=== PATIENT | female | born 1955 | race Caucasian/White ===

== ENCOUNTER 2016-12-03 06:38 | Inpatient (IN) | payer OTHER, MEDICARE ==
[2016-12-03] MEDS ORDERED: DIPHTH,PERTUSS(ACELL),TET 0.5 ML DISP.SYRIN IM ONE (07:16)
[2016-12-03] MEDS: SODIUM CHLORIDE 1,000 ML IV SCH ×3 (07:30→17:11)
--- NOTE | 2016-12-03 07:41 | PDOC ---
History of Present Illness <Thuy Sigala - Last Filed: 12/03/16 09:15> - General History Source: Patient Exam Limitations: No Limitations - History of Present Illness Initial Comments: 12/03/16 07:41 60-year-old female with history of insulin-dependent diabetes, COPD, hypertension, history of breast CA status post chemotherapy currently on maintenance oral therapy presents brought in by EMS status post fall with head injury. Patient has only vague recollection, states she was walking in her home this morning when she became progressively lightheaded with some chest discomfort, ultimately states she lost consciousness and struck her head on the floor. She states she woke up immediately after hitting the floor, was complaining of pain to her left head so her brother activated EMS. No other complaints currently other than left frontal headache, no vision change /speech change/focal deficit/nausea/vomiting. She has been having some URI symptoms of nasal congestion and chills, but no measured fevers or cough or shortness of breath or vomiting/diarrhea. She has been compliant with her medications. While she did have some chest discomfort during the lightheadedness, she denies any recent recurring chest pain. <Sawyer Hopkins - Last Filed: 12/03/16 09:48> - General Chief Complaint: Injury Stated Complaint: FALL Time Seen by Provider: 12/03/16 07:01 Past History <Thuy Sigala - Last Filed: 12/03/16 09:15> - Past Medical History Anemia: No Asthma: No Cancer: No Cardiac Disorders: No CVA: No COPD: Yes (SLEEP APNEA-USES NASAL CPAP(SET AT 30)) CHF: No Dementia: No Diabetes: Yes GI Disorders: Yes (pancreatitis, constipation) Disorders: No HTN: Yes Hypercholesterolemia: Yes Liver Disease: No Psychiatric Problems: (SCHIZOEFFECTIVE) Suicide Attempt (Hx): No Seizures: Yes (LAST ONE-2YRS (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)) Thyroid Disease: Yes (hypothyroid) - Surgical History Abdominal Surgery: No Appendectomy: No Cardiac Surgery: No Cholecystectomy: Yes Lung Surgery: No Neurologic Surgery: No Orthopedic Surgery: Yes - Psycho/Social/Smoking Cessation Hx Anxiety: Yes Suicidal Ideation: No Smoking Status: Yes Smoking History: Unknown if ever smoked Have you smoked in the past 12 months: Yes Number of Cigarettes Smoked Daily: 20 Information on smoking cessation initiated: No 'Breaking Loose' booklet given: 07/03/14 Hx Alcohol Use: No Drug/Substance Use Hx: No Substance Use Type: None Hx Substance Use Treatment: No <Sawyer Hopkins - Last Filed: 12/03/16 09:48> - Past Medical History Allergies/Adverse Reactions: Allergies Allergy/AdvReac Type Severity Reaction Status Date / Time acetaminophen [From Tylenol] Allergy "VOMITS" Verified 12/03/16 06:52 almond oil Allergy "ITCHY" Verified 12/03/16 06:52 citalopram hydrobromide Allergy "STROKE Verified 12/03/16 06:52 [From Celexa] LIKE SYMPTOMS" divalproex sodium Allergy "PANCREATIT Verified 12/03/16 06:52 [From Depakote] IS" Iodinated Contrast Media - Allergy Verified 12/03/16 06:52 Oral and [Iodinated Contrast Media - IV Dye] lamotrigine [From Lamictal] Allergy "FACE Verified 12/03/16 06:52 SWELLS" lithium [[place]] Allergy "SEIZURES,SWOLLEN Verified 12/03/16 06:52 ARMS/LEGS" meperidine HCl [From Demerol] Allergy "TURNS RED Verified 12/03/16 06:52 WHEN MIXED WITH NOVACAINE" shellfish derived Allergy "TURNED Verified 12/03/16 06:52 RED /ITCHY" sulfamethoxazole Allergy "COLLAPSED, Verified 12/03/16 06:52 [From Bactrim] HEART ISSUE" topiramate [From Topamax] Allergy TO Verified 12/03/16 06:52 POISONOUS LEVELS" trimethoprim [From Bactrim] Allergy "COLLAPSED,HEART Verified 12/03/16 06:52 ISSUE" Home Medications: Ambulatory Orders Aspirin [ASA -] 81 mg PO DAILY 03/20/14 Buspirone HCl [Buspar] 15 mg PO TID 03/20/14 Insulin (Levemir) [Levemir Flexpen -] 10 units SQ HS 03/20/14 Insulin (Novolog) [Novolog Flexpen -] 0 units SQ ASDIR 03/20/14 Levothyroxine [Synthroid -] 300 mcg PO DAILY 03/20/14 Lorazepam [Ativan] 1 mg PO TID PRN 03/20/14 Polyethylene Glycol 3350 [Miralax 119 gm Btl -] 17 gm PO DAILY 03/20/14 Quetiapine Fumarate [Seroquel -] 800 mg PO HS 03/20/14 Quinapril HCl [Accupril -] 10 mg PO DAILY 03/20/14 Rosuvastatin Calcium [Crestor] 10 mg PO HS 03/20/14 Carboxymethylcellulos/Glycerin [Refresh Optive Eye Drops] 1 drop OP BID FA/Mv,Ca,Iron,Min/Lycopene/Lut [Centrum Tablet] 1 each PO DAILY 07/03/14 Ziprasidone HCl [Geodon] 40 mg PO BID 07/03/14 Anastrozole [Arimidex -] 1 mg PO DAILY 12/03/16 Gabapentin [Neurontin -] 100 mg PO Q8H 12/03/16 Review of Systems - Review of Systems Constitutional: Yes: Chills. No: Fever HEENTM: Yes: Nose Congestion Respiratory: No: Cough, Shortness of Breath Cardiac (ROS): Yes: Chest Pain, Syncope. No: Palpitations ABD/GI: No: Diarrhea, Nausea, Vomiting : No: Dysuria, Frequency Neurological: Yes: Headache All Other Systems: Reviewed and Negative <Sawyer Hopkins - Last Filed: 12/03/16 09:48> *Physical Exam - Vital Signs Last Vital Signs Temp Pulse Resp BP Pulse Ox 97.7 F 86 18 106/57 89 L 12/03/16 06:52 12/03/16 06:52 12/03/16 06:52 12/03/16 06:52 12/03/16 06:52 <Thuy Sigala - Last Filed: 12/03/16 09:15> - Vital Signs Last Vital Signs Temp Pulse Resp BP Pulse Ox 97.7 F 86 18 106/57 89 L 12/03/16 06:52 12/03/16 06:52 12/03/16 06:52 12/03/16 06:52 12/03/16 06:52 - Physical Exam Comments: 12/03/16 07:43 General: Patient is asleep but arousable, in no acute distress. Speech is clear and appropriate. Obese, slightly unkempt. Head: Left frontal superficial ecchymosis, dry blood coming from 1.5 cm linear horizontal superficial laceration at the left frontal region. No active bleeding , no deep tissue injury, no foreign body. HEENT: Pupils are equal round and reactive to light, extraocular movements are intact. The tympanic membranes are clear, no hemotympanum. No facial deformity/ tenderness, no septal hematoma. The oropharynx is clear. Neck: The trachea is midline, there is no stridor. Left paraspinal discomfort to palpation but no midline cervical spine tenderness, full range of motion of neck. Chest: Nontender, no ecchymosis or abrasions. Heart: S1-S2, regular rate and rhythm. No murmurs. Lungs: Clear to auscultation bilaterally. Symmetric chest rise. Abdomen: Soft/nontender/nondistended. Bowel sounds are normal. There is no abdominal or flank ecchymosis. Back/Pelvis: There is no midline spine tenderness or step-off. Pelvis is stable and nontender. Extremities: There is no extremity deformity or joint swelling. No focal bony tenderness throughout. 2+ distal pulses throughout. Neuro: Alert and oriented x3. Cranial nerves II through XII are intact. 5 out of 5 motor strength x4 extremities. Mpsahg-ssgd-mbaeuv is intact. No pronator drift. Gait deferred. Skin: Left frontal/forehead superficial linear laceration, no other injuries. Psych: Affect is appropriate. <Sawyer Hopkins - Last Filed: 12/03/16 09:48> Heart Score/ECG Review #1 ECG reviewed & interpreted by me at: 07:29 General ECG Interpretation: Sinus Rhythm, Normal Rate (84), Normal Intervals ( QTC 496), No acute ischemic changes (T wave flattening I/AVL) <Sawyer Hopkins - Last Filed: 12/03/16 09:48> ED Treatment Course - LABORATORY CBC & Chemistry Diagram: 12/03/16 07:21 12/03/16 07:21 - ADDITIONAL ORDERS Additional order review: Laboratory Results 12/03/16 12/03/16 12/03/16 07:21 07:21 06:49 PTT (Actin FS) 31.6 Sodium 140 Potassium 3.5 Chloride 104 Carbon Dioxide 27 Anion Gap 9 BUN 19 H D Creatinine 1.1 H Creat Clearance w eGFR 50.84 POC Glucometer 178.61224 Random Glucose 171 H D Calcium 8.7 Magnesium 1.7 L D Total Bilirubin 0.3 AST 12 L D ALT 24 Alkaline Phosphatase 116 Creatine Kinase 94 Troponin I < 0.02 Total Protein 5.9 L Albumin 3.4 12/03/16 12/03/16 07:21 06:49 RBC 4.38 MCV 90.3 MCHC 33.4 RDW 14.9 MPV 8.4 Neutrophils % 76.9 Lymphocytes % 14.3 D Monocytes % 5.9 Eosinophils % 2.5 Basophils % 0.4 POC Glucometer [id number] - RADIOLOGY Radiograph Interpretation: 12/03/16 08:49 EXAM: CT/HEAD CT WITHOUT CONTRAST IMPRESSION: CT scan of the brain without intravenous contrast. Since prior CT scan of the head dated 06/13/2010 there remains minimal volume loss and ventricular prominence. No mass lesion, gross acute infarct or intracranial hemorrhage is seen. There is no shift of the midline structures. The calvarium is intact. Calcification of the cavernous carotid arteries are present. Minimal mucosal thickening in the ethmoid air cells. The mastoid air cells are well- aerated. EXAM: CT/CERVICAL SPINE CT W/O CONTR IMPRESSION: Coronal and sagittal reconstruction images were obtained. There is straightening of the cervical spine. No gross fracture, subluxation or prevertebral soft tissue swelling is seen. No jumped facets are identified. C6- C7 moderate degenerative disc disease with posterior spur formation uncovertebral hypertrophy moderately narrowing the left foramen likely impinging left C7 nerve root C5-C6 mild degenerative disc disease Visualized portion of the airway appears unremarkable. No gross enlarged lymph nodes are identified. Lung windows at the thoracic inlet demonstrates atelectatic changes in the dependent portion of the included left upper lobe EXAM: RAD/CHEST - PA IMPRESSION: A single AP projection of the chest is submitted. The heart size is within normal limits. A left-sided Port-A-Cath is present. The lung fishman are free of pulmonary infiltrates or pleural effusions. There is tortuosity and calcification of the thoracic aorta and degenerative changes of the thoracic spine. EXAM: RAD/PELVIS IMPRESSION: L4-L5, L5-S1. Loss of interval disc space height. Facet joint arthropathy at these levels is suggested. Status post total left hip replacement. Normal alignment, no evidence of dislocation. No acute bony abnormalities are seen within limitation of examination. Normal articulation of the right hip. - Medications Given in the ED: ED Medications Discontinued Medications Generic Name Dose Route Start Last Admin Trade Name Evie PRN Reason Stop Dose Admin Diphtheria/Tetanus/Acell Pertussis 0.5 ml 12/03/16 07:16 12/03/16 07:30 Boostrix - IM 12/03/16 07:17 0.5 ml .ONCE ONE Administration <Thuy Sigala - Last Filed: 12/03/16 09:15> - LABORATORY CBC & Chemistry Diagram: 12/03/16 07:21 12/03/16 07:21 - ADDITIONAL ORDERS Additional order review: Laboratory Results 12/03/16 06:49 POC Glucometer [id number] 12/03/16 06:49 POC Glucometer [id number] <Sawyer Hopkins - Last Filed: 12/03/16 09:48> Medical Decision Making - Medical Decision Making 12/03/16 08:52 A page was sent to Dr. Bryan Chamberlain at [phone], Redirected to covering physician in house Dr. Cat Mendoza. 12/03/16 09:[address] Cat Mendoza. Immediate response. Case was discussed. Accepts case. <ZakiyaThuy - Last Filed: 12/03/16 09:15> - Medical Decision Making 12/03/16 07:46 60-year-old female with history of hypertension, insulin dependent diabetes, presents status post episode of lightheadedness and fall with head injury. Patient takes aspirin, is currently neurologically intact, sustained isolated injury to left head and has some neck discomfort. Question etiology of initial lightheadedness and syncope, will need to rule out arrhythmia or ACS or metabolic derangement. Rule out TBI. Labs, urinalysis EKG, chest x-ray, pelvis x-ray CT head and CT C-spine Laceration repair, update tetanus Will need admission 12/03/16 09:46 Labs are within normal limits, creatinine 1.1 from baseline 0.9. Troponin negative. CBC within normal limits. Trauma imaging is unremarkable, chest x-ray nonfocal. Awaiting urinalysis. Accepted for observation telemetry by Dr. Cat Cha. Discussed possible PE, d -dimer added to prior coag specimen. LACERATION REPAIR: The skin was cleansed with saline. Normal saline lavage was performed. The skin edges were carefully opposed. Indermil skin glue was used for closure with a good result. The patient was advised regarding observation for signs and symptoms of infection, care for a laceration after Indermil closure, and indications for immediate follow up with a physician. <Sawyer Hopkins - Last Filed: 12/03/16 09:48> *DC/Admit/Observation/Transfer - Attestations Scribe Attestion: 12/03/16 08:52 Documentation prepared by Thuy Sigala, acting as medical underwriter for Sawyer Hopkins MD. <Thuy Sigala - Last Filed: 12/03/16 09:15> - Discharge Dispostion Admit: Yes <Sawyer Hopkins - Last Filed: 12/03/16 09:48> Diagnosis at time of Disposition: Syncope and collapse Head injury Qualifiers: Encounter type: initial encounter Qualified Code(s): S09.90XA - Unspecified injury of head, initial encounter Scalp laceration Qualifiers: Encounter type: initial encounter Qualified Code(s): S01.01XA - Laceration without foreign body of scalp, initial encounter - Discharge Dispostion Condition at time of disposition: Fair
[2016-12-03 07:44] LABS: BASOPHIL 0.4 % (0-2.0); EOSINOPHIL 2.5 % (0-4.5); MCH 30.1 pg (25.7-33.7); MCHC 33.4 g/dl (32.0-36.0); MEAN CELL VOLUME 90.3 fl (80-96); MEAN PLT VOLUME 8.4 fl (7.5-11.1); NEUTROPHILS 76.9 % (42.8-82.8); PLATELET COUNT 156 K/MM3 (134-434); RDW 14.9 % (11.6-15.6); WHITE BLOOD COUNT 10.6 K/mm3 (4.0-10.0)
[2016-12-03 08:08] LABS: ALBUMIN 3.4 g/dl (3.4-5.0); ANION GAP 9 (8-16); CALCIUM 8.7 mg/dL (8.5-10.1); CO2 27 mmol/L (21-32); MAGNESIUM 1.7 mg/dL (1.8-2.4)
[2016-12-03 08:16] LABS: ALK PHOS 116 U/L (45-117); BILIRUBIN,TOTAL 0.3 mg/dL (0.2-1.0); CREATININE 1.1 mg/dL (0.55-1.02); GLUCOSE,RANDOM 171 mg/dL (74-106); SGOT/AST 12 U/L (15-37); SGPT/ALT 24 U/L (12-78); TOT PROT 5.9 g/dl (6.4-8.2); TROPONIN I < 0.02 ng/ml (0.00-0.05)
[2016-12-03 08:38] LABS: INR 1.03 (0.82-1.09); PROTHROMBIN TIME (PATIENT) 11.3 SEC (9.98-11.88)
[2016-12-03] MEDS ORDERED: LORazepam 1 MG TABLET PO PRN (09:16)
--- NOTE | 2016-12-03 09:20 | HP ---
Admitting History and Physical - Primary Care Physician PCP: Tej Chamberlain - Admission Chief Complaint: fall , chest pain , head injury History of Present Illness: ER HISTORY - History of Present Illness Initial Comments: 12/03/16 07:41 60-year-old female with history of insulin-dependent diabetes, COPD, hypertension, history of breast CA status post chemotherapy currently on maintenance oral therapy presents brought in by EMS status post fall with head injury. Patient has only vague recollection, states she was walking in her home this morning when she became progressively lightheaded with some chest discomfort, ultimately states she lost consciousness and struck her head on the floor. She states she woke up immediately after hitting the floor, was complaining of pain to her left head so her brother activated EMS. No other complaints currently other than left frontal headache, no vision change /speech change/focal deficit/nausea/vomiting. She has been having some URI symptoms of nasal congestion and chills, but no measured fevers or cough or shortness of breath or vomiting/diarrhea. She has been compliant with her medications. While she did have some chest discomfort during the lightheadedness, she denies any recent recurring chest pain. PT SEEN BY ME IN ER She feels dizzy currently- feels herself spinning. Has a pressure pain in front of head .No chest pain currently She has been having viral syndrome a few days prior to the fall- poor appetite, no diarrhea. States she took her Insulin- levemir- PM dose last night and when she woke up this AM, she became very weak and dizzy and fell and hit her head to the edge of a door. Did not lose consciousness Had chest pain slightly , no palpitations, no radiation of pain. Last chemo and RT - 2014 No SOB - Past Medical History Cardiovascular: Yes: HTN, Hyperlipdemia Pulmonary: Yes: COPD, Other (c/c smoker) Heme/Onc: Yes: Cancer (breast cancer) Psych: Yes: Anxiety, Schizophrenia Musculoskeletal: Yes: Osteoarthritis Endocrine: Yes: Diabetes Mellitus - Smoking History Smoking history: Unknown if ever smoked Have you smoked in the past 12 months: Yes Aproximately how many cigarettes per day: 20 - Alcohol/Substance Use Hx Alcohol Use: No - Social History ADL: Independent History of Recent Travel: No Home Medications - Allergies Allergies/Adverse Reactions: Allergies Allergy/AdvReac Type Severity Reaction Status Date / Time acetaminophen [From Tylenol] Allergy "VOMITS" Verified 12/03/16 06:52 almond oil Allergy "ITCHY" Verified 12/03/16 06:52 citalopram hydrobromide Allergy "STROKE Verified 12/03/16 06:52 [From Celexa] LIKE SYMPTOMS" divalproex sodium Allergy "PANCREATIT Verified 12/03/16 06:52 [From Depakote] IS" Iodinated Contrast Media - Allergy Verified 12/03/16 06:52 Oral and [Iodinated Contrast Media - IV Dye] lamotrigine [From Lamictal] Allergy "FACE Verified 12/03/16 06:52 SWELLS" lithium [[place]] Allergy "SEIZURES,SWOLLEN Verified 12/03/16 06:52 ARMS/LEGS" meperidine HCl [From Demerol] Allergy "TURNS RED Verified 12/03/16 06:52 WHEN MIXED WITH NOVACAINE" shellfish derived Allergy "TURNED Verified 12/03/16 06:52 RED /ITCHY" sulfamethoxazole Allergy "COLLAPSED, Verified 12/03/16 06:52 [From Bactrim] HEART ISSUE" topiramate [From Topamax] Allergy TO Verified 12/03/16 06:52 POISONOUS LEVELS" trimethoprim [From Bactrim] Allergy "COLLAPSED,HEART Verified 12/03/16 06:52 ISSUE" - Home Medications Home Medications: Ambulatory Orders Aspirin [ASA -] 81 mg PO DAILY 03/20/14 Buspirone HCl [Buspar] 15 mg PO TID 03/20/14 Insulin (Levemir) [Levemir Flexpen -] 10 units SQ HS 03/20/14 Insulin (Novolog) [Novolog Flexpen -] 0 units SQ ASDIR 03/20/14 Levothyroxine [Synthroid -] 300 mcg PO DAILY 03/20/14 Lorazepam [Ativan] 1 mg PO TID PRN 03/20/14 Polyethylene Glycol 3350 [Miralax 119 gm Btl -] 17 gm PO DAILY 03/20/14 Quetiapine Fumarate [Seroquel -] 800 mg PO HS 03/20/14 Quinapril HCl [Accupril -] 10 mg PO DAILY 03/20/14 Rosuvastatin Calcium [Crestor] 10 mg PO HS 03/20/14 Carboxymethylcellulos/Glycerin [Refresh Optive Eye Drops] 1 drop OP BID FA/Mv,Ca,Iron,Min/Lycopene/Lut [Centrum Tablet] 1 each PO DAILY 07/03/14 Ziprasidone HCl [Geodon] 40 mg PO BID 07/03/14 Anastrozole [Arimidex -] 1 mg PO DAILY 12/03/16 Gabapentin [Neurontin -] 100 mg PO Q8H 12/03/16 Review of Systems - Review of Systems Constitutional: reports: Loss of Appetite, Weakness. denies: Chills, Fever Cardiovascular: reports: Chest Pain. denies: Palpitations, Shortness of Breath Respiratory: denies: Cough, SOB on Exertion Neurological: reports: Dizziness, Headache Physical Examination Vital Signs: Vital Signs Temperature 97.7 F 12/03/16 06:52 Pulse Rate 86 12/03/16 06:52 Respiratory Rate 18 12/03/16 06:52 Blood Pressure 106/57 12/03/16 06:52 O2 Sat by Pulse Oximetry (%) 89 L 12/03/16 06:52 Constitutional: Yes: No Distress, Calm HENT: Yes: Other (left frontal-- abrasion seen, no sutures needed, dried blood) Cardiovascular: Yes: Regular Rate and Rhythm Respiratory: Yes: Diminished Gastrointestinal: Yes: Normal Bowel Sounds, Soft, Abdomen, Obese. No: Distention, Tenderness Extremities: Yes: Other (c/c venous dermatitis) Edema: Yes Edema: LLE: Trace, RLE: Trace Neurological: Yes: Alert, Oriented Psychiatric: Yes: Alert, Oriented Labs: CBC, BMP 12/03/16 07:21 12/03/16 07:21 Imaging - Results Chest X-ray: Image Reviewed (no infiltrate) Cat Scan: Report Reviewed (CT head and neck- negative for bleed, infarcts, fracture) EKG: Image Reviewed (NSR) Problem List - Problems (1) Head injury Code(s): S09.90XA - UNSPECIFIED INJURY OF HEAD, INITIAL ENCOUNTER Qualifiers: Encounter type: initial encounter Qualified Code(s): S09.90XA - Unspecified injury of head, initial encounter (2) Scalp laceration Code(s): S01.01XA - LACERATION WITHOUT FOREIGN BODY OF SCALP, INITIAL ENCOUNTER Qualifiers: Encounter type: initial encounter Qualified Code(s): S01.01XA - Laceration without foreign body of scalp, initial encounter (3) Syncope and collapse Code(s): R55 - SYNCOPE AND COLLAPSE (4) Schizophrenia Code(s): F20.9 - SCHIZOPHRENIA, UNSPECIFIED Qualifiers: Schizophrenia type: unspecified Qualified Code(s): F20.9 - Schizophrenia, unspecified (5) Dehydration syndrome Code(s): E86.0 - DEHYDRATION Assessment/Plan PLAN -- Noted low O2 sat on arrival to ER-- check D Dimer and Doppler of legs- r/o DVT, r/o PE as she has h/o cancer, she is not much mobile -- R/O Acs-- check cardiac enzymes -- Cardiology and Neurology evaluation -- check Echo, carotid doppler -- orthostasis -- viral syndrome precursor to dehydration--continue IV hydration -- replace Magnesium -- hold off ACEI as BP is low and has renal dynsfunction , will resume when better -- Repeat CT head in AM -- Telemetry monitoring -- spoke to ER MD and nurse
[2016-12-03] MEDS ORDERED: MAGNESIUM SULF 50% (8.12 MEQ/2 ML-1 GM VIAL) IVPB ONE (09:49)
[2016-12-03 09:59] LABS: FREE T4 1.06 ng/dl (0.76-1.46); THYROID STIMULATING HORMONE 4.95 uIU/ml (0.358-3.74)
[2016-12-03] MEDS ORDERED: QUINAPRIL HCL 10 MG TABLET (FP) PO SCH (10:00)
[2016-12-03] MEDS: ZIPRASIDONE 40 MG CAPSULE (FP) PO SCH ×2 (10:04→21:08)
[2016-12-03] MEDS: GABAPENTIN 100 MG CAPSULE (FP) PO SCH ×3 (10:04→21:07)
[2016-12-03] MEDS: LEVOTHYROXINE NA 150 MCG TABLET PO SCH (10:04)
[2016-12-03] MEDS: ANASTROZOLE 1 MG TABLET PO SCH (10:15)
[2016-12-03] MEDS ORDERED: MAGNESIUM SULF 50% (8.12 MEQ/2 ML-1 GM VIAL) ONE (11:30)
--- NOTE | 2016-12-03 11:47 | EKG ---
Test Reason : Blood Pressure : / mmHG Vent. Rate : 084 BPM Atrial Rate : 084 BPM P-R Int : 166 ms QRS Dur : 098 ms QT Int : 420 ms P-R-T Axes : 063 007 049 degrees QTc Int : 496 ms NORMAL SINUS RHYTHM CANNOT RULE OUT ANTERIOR INFARCT , AGE UNDETERMINED ABNORMAL ECG WHEN COMPARED WITH ECG OF 01-NOV-2014 14:40, NO SIGNIFICANT CHANGE WAS FOUND Confirmed by PATRICIA BARROW, ANTONIETA ([id number]) on 12/03/2016 11:47:35 AM Referred By: Confirmed By:ANTONIETA GOMEZ MD
[2016-12-03] MEDS ORDERED: INSULIN (NOVOLOG) ASPART 100 UNITS/ML 10ML VIAL ONE (12:27)
[2016-12-03] MEDS: INSULIN (NOVOLOG) ASPART 100 UNITS/ML 10ML VIAL SQ SCH ×2 (12:28→17:12)
[2016-12-03] MEDS: busPIRone HCL 5 MG TABLET PO SCH ×2 (13:47→21:07)
[2016-12-03 13:58] VITALS: BMI 45.6
--- NOTE | 2016-12-03 17:47 | CONSULT ---
Consult Consult Specialty:: Cardiology Referred by:: Cat Cha MD Reason for Consultation:: Syncope - History of Present Illness Chief Complaint: Syncope History of Present Illness: 60-year-old female with history of insulin-dependent diabetes, COPD, hypertension, history of breast CA status post chemotherapy currently on maintenance oral therapy presents brought in by EMS status post fall with head injury, possible syncope following light-headedness, denies other prodromal sxs. - History Source History Provided By: Patient, Medical Record Limitations to Obtaining History: Poor Historian - Past Medical History Cardio/Vascular: Yes: HTN, Hyperlipdemia Pulmonary: Yes: COPD, Other (c/c smoker) Psych: Yes: Anxiety, Schizophrenia Musculoskeletal: Yes: Osteoarthritis Endocrine: Yes: Diabetes Mellitus - Alcohol/Substance Use Hx Alcohol Use: No - Smoking History Smoking history: Current some day smoker Have you smoked in the past 12 months: Yes Aproximately how many cigarettes per day: 20 - Social History ADL: Independent History of Recent Travel: No Home Medications - Allergies Allergies/Adverse Reactions: Allergies Allergy/AdvReac Type Severity Reaction Status Date / Time acetaminophen [From Tylenol] Allergy "VOMITS" Verified 12/03/16 06:52 almond oil Allergy "ITCHY" Verified 12/03/16 06:52 citalopram hydrobromide Allergy "STROKE Verified 12/03/16 06:52 [From Celexa] LIKE SYMPTOMS" divalproex sodium Allergy "PANCREATIT Verified 12/03/16 06:52 [From Depakote] IS" Iodinated Contrast Media - Allergy Verified 12/03/16 06:52 Oral and [Iodinated Contrast Media - IV Dye] lamotrigine [From Lamictal] Allergy "FACE Verified 12/03/16 06:52 SWELLS" lithium [[place]] Allergy "SEIZURES,SWOLLEN Verified 12/03/16 06:52 ARMS/LEGS" meperidine HCl [From Demerol] Allergy "TURNS RED Verified 12/03/16 06:52 WHEN MIXED WITH NOVACAINE" shellfish derived Allergy "TURNED Verified 12/03/16 06:52 RED /ITCHY" sulfamethoxazole Allergy "COLLAPSED, Verified 12/03/16 06:52 [From Bactrim] HEART ISSUE" topiramate [From Topamax] Allergy TO Verified 12/03/16 06:52 POISONOUS LEVELS" trimethoprim [From Bactrim] Allergy "COLLAPSED,HEART Verified 12/03/16 06:52 ISSUE" - Home Medications Home Medications: Ambulatory Orders Aspirin [ASA -] 81 mg PO DAILY 03/20/14 Buspirone HCl [Buspar] 15 mg PO TID 03/20/14 Insulin (Levemir) [Levemir Flexpen -] 10 units SQ HS 03/20/14 Insulin (Novolog) [Novolog Flexpen -] 0 units SQ ASDIR 03/20/14 Levothyroxine [Synthroid -] 300 mcg PO DAILY 03/20/14 Lorazepam [Ativan] 1 mg PO TID PRN 03/20/14 Polyethylene Glycol 3350 [Miralax 119 gm Btl -] 17 gm PO DAILY 03/20/14 Quetiapine Fumarate [Seroquel -] 800 mg PO HS 03/20/14 Quinapril HCl [Accupril -] 10 mg PO DAILY 03/20/14 Rosuvastatin Calcium [Crestor] 10 mg PO HS 03/20/14 Carboxymethylcellulos/Glycerin [Refresh Optive Eye Drops] 1 drop OP BID FA/Mv,Ca,Iron,Min/Lycopene/Lut [Centrum Tablet] 1 each PO DAILY 07/03/14 Ziprasidone HCl [Geodon] 40 mg PO BID 07/03/14 Anastrozole [Arimidex -] 1 mg PO DAILY 12/03/16 Gabapentin [Neurontin -] 100 mg PO Q8H 12/03/16 Review of Systems - Review of Systems Neurological: reports: Dizziness, Syncope Vital Signs: Vital Signs Temperature 98.2 F 12/03/16 14:33 Pulse Rate 87 12/03/16 15:55 Respiratory Rate 20 12/03/16 15:55 Blood Pressure 111/48 12/03/16 15:55 O2 Sat by Pulse Oximetry (%) 97 12/03/16 16:22 Constitutional: Yes: No Distress, Calm Neck: Yes: Supple Respiratory: Yes: Regular, Diminished Gastrointestinal: Yes: Normal Bowel Sounds, Soft, Abdomen, Obese Cardiovascular: Yes: Regular Rate and Rhythm JVD: No Carotid Bruit: No Heart Sounds: Yes: S1, S2 Edema: Yes Edema: LLE: Trace, RLE: Trace - Other Data Labs, Other Data: INR, PTT INR 1.03 (0.82-1.09) 12/03/16 07:21 NSR Echo: Report Reviewed Ejection Fraction %: LVEF > or = 40 % Imaging - Results Chest X-ray: Report Reviewed (NAD) Cat Scan: Report Reviewed (No acute stroke or bleed) Ultrasound: Report Reviewed (No stenosis bilaterally) Problem List - Problems (1) Dehydration syndrome Code(s): E86.0 - DEHYDRATION (2) Head injury Code(s): S09.90XA - UNSPECIFIED INJURY OF HEAD, INITIAL ENCOUNTER Qualifiers: Encounter type: initial encounter Qualified Code(s): S09.90XA - Unspecified injury of head, initial encounter (3) Syncope and collapse Code(s): R55 - SYNCOPE AND COLLAPSE (4) Breast CA Code(s): C50.919 - MALIGNANT NEOPLASM OF UNSP SITE OF UNSPECIFIED FEMALE BREAST (5) Schizophrenia Code(s): F20.9 - SCHIZOPHRENIA, UNSPECIFIED Qualifiers: Schizophrenia type: paranoid schizophrenia Qualified Code(s): F20.0 - Paranoid schizophrenia (6) Hypertension Code(s): I10 - ESSENTIAL (PRIMARY) HYPERTENSION Qualifiers: Hypertension type: essential hypertension Qualified Code(s): I10 - Essential (primary) hypertension Assessment/Plan 12/03/2016 Normal LV size and fxn, mild cLVH, tr MR 1. Post fall, questionable syncope 2. HTN/HCVD 3. Hypothyroidism 4. Hyperlipidemia 5. Schizophrenia 6. Breast ca P:1. Check orthostasis, agree with hydration 2. Monitor telemetry 3. Continue ASA 81 qd, Accupril 10 qd, Crestor 10 qd 4. Thank you for consultative opportunity
--- NOTE | 2016-12-03 18:21 | CONSULT ---
Consult - text type - Consultation Consultation Note: NEUROLOGY CONSULTATION is greatly appreciated: This 60 yoLH woman lives with 2 brothers. PMH of chronic pancreatitis, Diabetes, hypothyroidism, HTN, Chol, Bipolar disease and R breast cancer for which she received Chemo and now, arimidex. Meds include: Insulins, buspar, lorazepam, geodon, seroquel, quinipril, crestor , and gabapentin (being reduced by pt, currently 100 tid). Known to me over many years with migraine Headaches, RLS, and seizure disorder- initially ascribed to lithium toxicity. Depakote D/C'ed due to pancreatitis. No seizures since 2012. Last seen by me 04/18/15. Recently has had increasing gait difficulty and a series of falls, last occurring this morning getting out of bed. Pt describes a sensation of "being pulled foreward when getting up to walk. His AM felt lightheaded and saw "blue plaid" before falling forward with head trauma. "Unsure if LOC." Left forehead laceration at the hairline sutured in the ER, Now , Patient c/o Left sided headache. CT of head (reviewed): Mild atrophy and scattered microvascular changes. CT of C-spine (reviewed): Moderate diffuse spondylytic changes without fracture or dislocation. Carotid duplex: Moderate intimal thickening and calcifications but no significant hemodynamic changes. MARQUIS: Obese. Left frontal suture line. Neg Battles's. Sl reduced neck ROM without tenderness. No bruits. NEURO: MS/speech: Normal CN II-XII normal without nystagmus Motor: No drift or tremor. Min cogwheeling with reinforcement. Normal strength. Areflexic in the legs. Toes downgoing. Coord: No FTN dystaxia Sensory: Decreased vibration in feet. Gait: Wide-based, flexed and shuffling IMP: Non-focal exam sig for probable diabetic peripheral neuropathy and mild extrpyramidal features (possibly due to Geodon). Syncope/presyncope vs fall due to ataxia. SUGGEST: Check orthostatic BP's, B 12, TSH, T4, repeat Mg++ R/O arrhythmia with Halter. R/O occult infection, eriberto UTI. PT eval and Rx for gait training with a walker. Neuro f/u as outpatient. Thank you very much, Rod Priest MD
[2016-12-03] MEDS ORDERED: PT OWN MED DRAWER 7, Y5N ONE (20:47)
[2016-12-03] MEDS: ROSUVASTATIN CA 10 MG TABLET (FP) PO SCH (21:07)
[2016-12-03] MEDS: QUEtiapine FUMARATE 200 MG TABLET PO SCH (21:08)
[2016-12-03] MEDS: INSULIN DETEMIR 100 UNITS/ML MDV SQ SCH (21:11)
[2016-12-03 23:44] LABS: URINE APPEARANCE CLEAR; URINE BILIRUBIN NEGATIVE (NEGATIVE); URINE BLOOD NEGATIVE (NEGATIVE); URINE COLOR LTYELLOW; URINE GLUCOSE (UA) NEGATIVE (NEGATIVE); URINE KETONE NEGATIVE (NEGATIVE); URINE LEUK ESTERASE NEGATIVE (NEGATIVE); URINE NITRITE NEGATIVE (NEGATIVE); URINE PROTEIN NEGATIVE (NEGATIVE); URINE UROBILINOGEN NEGATIVE E.U./dl (0.2-1.0)
[2016-12-04] MEDS: SODIUM CHLORIDE 1,000 ML IV SCH ×4 (05:30→11:54)
[2016-12-04] MEDS: LEVOTHYROXINE NA 150 MCG TABLET PO SCH (06:35)
[2016-12-04] MEDS: GABAPENTIN 100 MG CAPSULE (FP) PO SCH ×3 (06:35→22:57)
[2016-12-04] MEDS: busPIRone HCL 5 MG TABLET PO SCH ×3 (06:37→22:56)
[2016-12-04] MEDS: INSULIN (NOVOLOG) ASPART 100 UNITS/ML 10ML VIAL SQ SCH ×3 (06:40→16:07)
[2016-12-04 09:01] LABS: CALCIUM 8.8 mg/dL (8.5-10.1); CREATININE 0.9 mg/dL (0.55-1.02)
[2016-12-04] MEDS ORDERED: PT OWN MED DRAWER 7, Y5N ONE ×2 (09:45→22:08)
--- NOTE | 2016-12-04 10:16 | PN ---
Progress Note, Physician Chief Complaint: Events noted Complains of headache History of Present Illness: Patient was seen and examined. Awake and alert. Chart was reviewed Denies chest pain, SOB or palpitation Events noted regarding syncope Repeat head CT was unremarkable - Current Medication List Current Medications: Active Medications Anastrozole (Arimidex -) 1 mg PO DAILY [facility] Last Admin: 12/03/16 10:15 Dose: Not Given Buspirone HCl (Buspar -) 15 mg PO TID [facility] Last Admin: 12/04/16 06:37 Dose: 15 mg Gabapentin (Neurontin -) 100 mg PO TID [facility] Last Admin: 12/04/16 06:35 Dose: 100 mg Sodium Chloride (Normal Saline -) 1,000 mls @ 125 mls/hr IV ASDIR [facility] Last Admin: 12/04/16 07:46 Dose: Not Given Sodium Chloride (Normal Saline -) 1,000 mls @ 100 mls/hr IV ASDIR [facility] Last Admin: 12/04/16 05:30 Dose: 100 mls/hr Insulin Aspart (Novolog Vial) 0 units SQ TIDAC [facility] PRN Reason: Protocol Last Admin: 12/04/16 06:40 Dose: Not Given Insulin Detemir (Levemir Vial) 10 units SQ [facility] Last Admin: 12/03/16 21:11 Dose: 10 units Levothyroxine Sodium (Synthroid -) 300 mcg PO DAILY@0700 [facility] Last Admin: 12/04/16 06:35 Dose: 300 mcg Lorazepam (Ativan -) 1 mg PO TID PRN PRN Reason: ANXIETY Quetiapine Fumarate (Seroquel -) 800 mg PO [facility] Last Admin: 12/03/16 21:08 Dose: 800 mg Rosuvastatin Calcium (Crestor -) 10 mg PO [facility] Last Admin: 12/03/16 21:07 Dose: 10 mg Ziprasidone (Geodon -) 40 mg PO BID [facility] Last Admin: 12/03/16 21:08 Dose: 40 mg - Objective Vital Signs: Vital Signs Temperature 98 F 12/04/16 07:57 Pulse Rate 88 12/04/16 07:57 Respiratory Rate 22 12/04/16 07:57 Blood Pressure 152/99 12/04/16 07:57 O2 Sat by Pulse Oximetry (%) 95 12/03/16 21:00 Neck: Yes: Supple Cardiovascular: Yes: Regular Rate and Rhythm, S1, S2 Respiratory: Yes: CTA Bilaterally Gastrointestinal: Yes: Normal Bowel Sounds, Soft, Abdomen, Obese. No: Tenderness Edema: Yes Edema: LLE: Trace, RLE: Trace Additional Findings/Remarks: Review of Systems Cardiovascular: As noted above Respiratory: denies: denies: Cough or Sputum Production Gastrointestinal: denies: Nausea, Vomiting, Constipation or Abdominal Discomfort but reports intermittent Diarrhea and persistent Dysphagia Musculoskeletal: No Symptoms Reported Neuro: Possible syncope, no seizure Problem List - Problems (1) Head injury Code(s): S09.90XA - UNSPECIFIED INJURY OF HEAD, INITIAL ENCOUNTER Qualifiers: Encounter type: initial encounter Qualified Code(s): S09.90XA - Unspecified injury of head, initial encounter (2) Hypertension Code(s): I10 - ESSENTIAL (PRIMARY) HYPERTENSION Qualifiers: Hypertension type: essential hypertension Qualified Code(s): I10 - Essential (primary) hypertension (3) Scalp laceration Code(s): S01.01XA - LACERATION WITHOUT FOREIGN BODY OF SCALP, INITIAL ENCOUNTER Qualifiers: Encounter type: initial encounter Qualified Code(s): S01.01XA - Laceration without foreign body of scalp, initial encounter (4) Syncope and collapse Code(s): R55 - SYNCOPE AND COLLAPSE (5) Breast CA Code(s): C50.919 - MALIGNANT NEOPLASM OF UNSP SITE OF UNSPECIFIED FEMALE BREAST (6) Schizophrenia Code(s): F20.9 - SCHIZOPHRENIA, UNSPECIFIED Qualifiers: Schizophrenia type: unspecified Qualified Code(s): F20.9 - Schizophrenia, unspecified Assessment/Plan 1. Possible syncope status post fall 2. HTN/HCVD 3. Hypothyroidism 4. Hyperlipidemia 5. Schizophrenia 6. History of breast CA PLAN: 1. Check orthostasis and agree with hydration 2. Monitor on telemetry. Consider attaching Holter monitor 3. Continue ASA 81 mg QD, Accupril 10 mg QD and Crestor 10 mg QD. Consider increasing blood pressure medication if BP remains elevated 4. Neuro input noted. 5. Echocardiography and carotid Doppler reports noted Further plans are to follow Servando Pritchard MD
[2016-12-04] MEDS: ZIPRASIDONE 40 MG CAPSULE (FP) PO SCH ×2 (10:29→22:56)
[2016-12-04] MEDS: ANASTROZOLE 1 MG TABLET PO SCH (10:32)
--- NOTE | 2016-12-04 11:21 | PN ---
Progress Note, Physician Chief Complaint: patient sleepy No distress No headaches or chest pains spoke with the nurse, states that she is too sleepy she awakens when called and speaks appropriately - Current Medication List Current Medications: Active Medications Anastrozole (Arimidex -) 1 mg PO DAILY [facility] Last Admin: 12/04/16 10:32 Dose: 1 mg Buspirone HCl (Buspar -) 15 mg PO TID [facility] Last Admin: 12/04/16 06:37 Dose: 15 mg Gabapentin (Neurontin -) 100 mg PO TID [facility] Last Admin: 12/04/16 06:35 Dose: 100 mg Sodium Chloride (Normal Saline -) 1,000 mls @ 100 mls/hr IV ASDIR [facility] Last Admin: 12/04/16 10:31 Dose: 100 mls/hr Sodium Chloride (Normal Saline -) 1,000 mls @ 80 mls/hr IV ASDIR [facility] Insulin Aspart (Novolog Vial) 0 units SQ TIDAC [facility] PRN Reason: Protocol Last Admin: 12/04/16 06:40 Dose: Not Given Insulin Detemir (Levemir Vial) 10 units SQ [facility] Last Admin: 12/03/16 21:11 Dose: 10 units Levothyroxine Sodium (Synthroid -) 300 mcg PO DAILY@0700 [facility] Last Admin: 12/04/16 06:35 Dose: 300 mcg Lorazepam (Ativan -) 1 mg PO TID PRN PRN Reason: ANXIETY Quetiapine Fumarate (Seroquel -) 800 mg PO [facility] Last Admin: 12/03/16 21:08 Dose: 800 mg Quinapril HCl (Accupril -) 10 mg PO DAILY [facility] Rosuvastatin Calcium (Crestor -) 10 mg PO [facility] Last Admin: 12/03/16 21:07 Dose: 10 mg Ziprasidone (Geodon -) 40 mg PO BID [facility] Last Admin: 12/04/16 10:29 Dose: Not Given - Objective Vital Signs: Vital Signs Temperature 98 F 12/04/16 07:57 Pulse Rate 88 12/04/16 07:57 Respiratory Rate 20 12/04/16 08:00 Blood Pressure 152/99 12/04/16 07:57 O2 Sat by Pulse Oximetry (%) 92 L 12/04/16 08:00 Constitutional: Yes: No Distress Cardiovascular: Yes: Regular Rate and Rhythm Respiratory: Yes: Diminished Gastrointestinal: Yes: Normal Bowel Sounds, Soft, Abdomen, Obese. No: Distention, Tenderness Edema: No Psychiatric: Yes: Alert Labs: CBC, BMP 12/04/16 05:35 INR, PTT INR 1.03 (0.82-1.09) 12/03/16 07:21 Problem List - Problems (1) Head injury Code(s): S09.90XA - UNSPECIFIED INJURY OF HEAD, INITIAL ENCOUNTER Qualifiers: Encounter type: initial encounter Qualified Code(s): S09.90XA - Unspecified injury of head, initial encounter (2) Scalp laceration Code(s): S01.01XA - LACERATION WITHOUT FOREIGN BODY OF SCALP, INITIAL ENCOUNTER Qualifiers: Encounter type: initial encounter Qualified Code(s): S01.01XA - Laceration without foreign body of scalp, initial encounter (3) Syncope and collapse Code(s): R55 - SYNCOPE AND COLLAPSE (4) Schizophrenia Code(s): F20.9 - SCHIZOPHRENIA, UNSPECIFIED Qualifiers: Schizophrenia type: unspecified Qualified Code(s): F20.9 - Schizophrenia, unspecified (5) Dehydration syndrome Code(s): E86.0 - DEHYDRATION Assessment/Plan PLAN echo and carotid Doppler normal Doppler of lower extremities negative for DVT Patient uses CPAP machine at nighttime--arrange for tonight Cardiology and neurology evaluation noted urinalysis is negative, urine culture pending decrease IV fluids Patient had seen her own psychiatrist 2 weeks ago and no changes were made to her medications. I feel that her medications are making her too sleepy thus making her a great risk for fall Psychiatry evaluation Physical therapy evaluation DVT prophylaxis repeat CT head negative resume Accupril
[2016-12-04] MEDS: QUINAPRIL HCL 10 MG TABLET (FP) PO SCH (14:28)
[2016-12-04] MEDS: ROSUVASTATIN CA 10 MG TABLET (FP) PO SCH (22:56)
[2016-12-04] MEDS: QUEtiapine FUMARATE 200 MG TABLET PO SCH (22:56)
[2016-12-04] MEDS: INSULIN DETEMIR 100 UNITS/ML MDV SQ SCH (23:00)
[2016-12-05] MEDS: INSULIN (NOVOLOG) ASPART 100 UNITS/ML 10ML VIAL SQ SCH ×3 (06:45→16:24)
[2016-12-05] MEDS: LEVOTHYROXINE NA 150 MCG TABLET PO SCH (06:46)
[2016-12-05] MEDS: GABAPENTIN 100 MG CAPSULE (FP) PO SCH ×3 (06:46→21:37)
[2016-12-05] MEDS: busPIRone HCL 5 MG TABLET PO SCH ×3 (06:47→21:37)
[2016-12-05] MEDS ORDERED: PT OWN MED DRAWER 7, Y5N ONE ×3 (09:17→21:26)
[2016-12-05] MEDS ORDERED: ENOXAPARIN NA (PORCINE) 40 MG/0.4 ML DISP.SYRIN SQ SCH (10:00)
--- NOTE | 2016-12-05 10:32 | PN ---
Progress Note (short form) - Note Progress Note: SUBJECTIVE: Patient seen and examined. Chart reviewed. Sitting in the chair. Chief complaint: Pain in the neck. Thinks it is sore due to fall. Denies headache. Gets short o breath when not using oxygen. Pulse ox drops to 78%. Denies chest pain. OBJECTIVE: Vital Signs - 8 hr 12/05/16 06:00 Pulse Rate 71 Respiratory 20 Rate Blood Pressure 141/70 Intake & Output 12/04/16 12/05/16 12/05/16 23:59 07:59 15:59 Intake Total 480 Balance 480 Intake: Oral 480 Other: Voiding Method Toilet Toilet # Unmeasured Voids Void 5 Bowel Movement Yes # Bowel Movements 1 Active Medications Anastrozole (Arimidex -) 1 mg PO DAILY [facility] Last Admin: 12/04/16 10:32 Dose: 1 mg Buspirone HCl (Buspar -) 15 mg PO TID [facility] Last Admin: 12/05/16 06:47 Dose: 15 mg Enoxaparin Sodium (Lovenox -) 40 mg SQ DAILY [facility] Gabapentin (Neurontin -) 100 mg PO TID [facility] Last Admin: 12/05/16 06:46 Dose: 100 mg Sodium Chloride (Normal Saline -) 1,000 mls @ 100 mls/hr IV ASDIR [facility] Last Admin: 12/04/16 10:31 Dose: 100 mls/hr Sodium Chloride (Normal Saline -) 1,000 mls @ 80 mls/hr IV ASDIR [facility] Last Admin: 12/04/16 11:54 Dose: 80 mls/hr Insulin Aspart ([facility]) [facility] Reason: Protocol Last Admin: 12/05/16 06:45 Dose: Not Given Insulin Detemir (Levemir Vial) 10 units SQ [facility] Last Admin: 12/04/16 23:00 Dose: 10 units Levothyroxine Sodium (Synthroid -) 300 mcg PO DAILY@0700 [facility] Last Admin: 12/05/16 06:46 Dose: 300 mcg Lorazepam (Ativan -) 1 mg PO TID PRN PRN Reason: ANXIETY Quetiapine Fumarate (Seroquel -) 800 mg PO [facility] Last Admin: 12/04/16 22:56 Dose: 800 mg Quinapril HCl (Accupril -) 10 mg PO DAILY [facility] Last Admin: 12/04/16 14:28 Dose: 10 mg Rosuvastatin Calcium (Crestor -) 10 mg PO HS [facility] Last Admin: 12/04/16 22:56 Dose: 10 mg Ziprasidone (Geodon -) 40 mg PO BID [facility] Last Admin: 12/04/16 22:56 Dose: 40 mg CBC, BMP 12/03/16 07:21 12/04/16 05:35 Laboratory Results - last 24 hr 12/04/16 12/04/16 12/04/16 11:32 15:50 22:52 POC Glucometer 166 117 129 12/05/16 05:47 POC Glucometer 142 PHYSICAL EXAMINATION: Constitutional: Yes: No Distress. Neck: Supple Cardiovascular: Yes: Regular Rate and Rhythm Respiratory: Yes: Diminished Gastrointestinal: Yes: Normal Bowel Sounds, Soft, Abdomen, Obese. No: Distention, Tenderness Edema: No Psychiatric: Yes: Alert ASSESSMENT & PLAN: Overall stable but hypoxic on room air. - Last Chest X-Ray reviewed - Likely due to morbid obesity and medications. - Psych consult pending to adjust psych medications. - Pulmonary consult requested. - Monitor 24 Holter. - Report is pending. - Monitor blood pressure and blood sugar. - Will check pulse oxymetry on room air and after exercise. - Physical therapy. - Motrin for pain. - Will follow. Problem List - Problems (1) Head injury Code(s): S09.90XA - UNSPECIFIED INJURY OF HEAD, INITIAL ENCOUNTER Qualifiers: Encounter type: initial encounter Qualified Code(s): S09.90XA - Unspecified injury of head, initial encounter (2) Scalp laceration Code(s): S01.01XA - LACERATION WITHOUT FOREIGN BODY OF SCALP, INITIAL ENCOUNTER Qualifiers: Encounter type: initial encounter Qualified Code(s): S01.01XA - Laceration without foreign body of scalp, initial encounter (3) Syncope and collapse Code(s): R55 - SYNCOPE AND COLLAPSE (4) Schizophrenia Code(s): F20.9 - SCHIZOPHRENIA, UNSPECIFIED Qualifiers: Schizophrenia type: unspecified Qualified Code(s): F20.9 - Schizophrenia, unspecified (5) Dehydration syndrome Code(s): E86.0 - DEHYDRATION Documentation prepared by Thuy Sigala, acting as a medical or surgical instrument maker for Tej Chamberlain MD.
--- NOTE | 2016-12-05 10:43 | PN ---
Progress Note, Physician History of Present Illness: No further near or true syncope. No events on telemetry. - Current Medication List Current Medications: Active Medications Anastrozole (Arimidex -) 1 mg PO DAILY [facility] Last Admin: 12/04/16 10:32 Dose: 1 mg Buspirone HCl (Buspar -) 15 mg PO TID [facility] Last Admin: 12/05/16 06:47 Dose: 15 mg Enoxaparin Sodium (Lovenox -) 40 mg SQ DAILY [facility] Gabapentin (Neurontin -) 100 mg PO TID [facility] Last Admin: 12/05/16 06:46 Dose: 100 mg Sodium Chloride (Normal Saline -) 1,000 mls @ 100 mls/hr IV ASDIR [facility] Last Admin: 12/04/16 10:31 Dose: 100 mls/hr Sodium Chloride (Normal Saline -) 1,000 mls @ 80 mls/hr IV ASDIR [facility] Last Admin: 12/04/16 11:54 Dose: 80 mls/hr Insulin Aspart (Novolog Vial) 0 units SQ TIDAC [facility] PRN Reason: Protocol Last Admin: 12/05/16 06:45 Dose: Not Given Insulin Detemir (Levemir Vial) 10 units SQ [facility] Last Admin: 12/04/16 23:00 Dose: 10 units Levothyroxine Sodium (Synthroid -) 300 mcg PO DAILY@0700 [facility] Last Admin: 12/05/16 06:46 Dose: 300 mcg Lorazepam (Ativan -) 1 mg PO TID PRN PRN Reason: ANXIETY Quetiapine Fumarate (Seroquel -) 800 mg PO [facility] Last Admin: 12/04/16 22:56 Dose: 800 mg Quinapril HCl (Accupril -) 10 mg PO DAILY [facility] Last Admin: 12/04/16 14:28 Dose: 10 mg Rosuvastatin Calcium (Crestor -) 10 mg PO [facility] Last Admin: 12/04/16 22:56 Dose: 10 mg Ziprasidone (Geodon -) 40 mg PO BID [facility] Last Admin: 12/04/16 22:56 Dose: 40 mg - Objective Vital Signs: Vital Signs Temperature 69.9 F L 12/05/16 02:00 Pulse Rate 71 12/05/16 06:00 Respiratory Rate 20 12/05/16 06:00 Blood Pressure 141/70 12/05/16 06:00 O2 Sat by Pulse Oximetry (%) 96 12/04/16 21:39 Constitutional: Yes: No Distress, Calm Neck: Yes: Supple Cardiovascular: Yes: Regular Rate and Rhythm Respiratory: Yes: Regular, Diminished, On Nasal O2 Gastrointestinal: Yes: Normal Bowel Sounds, Soft, Abdomen, Obese Edema: No Labs: CBC, BMP 12/04/16 05:35 INR, PTT INR 1.03 (0.82-1.09) 12/03/16 07:21 Problem List - Problems (1) Dehydration syndrome Code(s): E86.0 - DEHYDRATION (2) Head injury Code(s): S09.90XA - UNSPECIFIED INJURY OF HEAD, INITIAL ENCOUNTER Qualifiers: Encounter type: initial encounter Qualified Code(s): S09.90XA - Unspecified injury of head, initial encounter (3) Syncope and collapse Code(s): R55 - SYNCOPE AND COLLAPSE (4) Breast CA Code(s): C50.919 - MALIGNANT NEOPLASM OF UNSP SITE OF UNSPECIFIED FEMALE BREAST (5) Schizophrenia Code(s): F20.9 - SCHIZOPHRENIA, UNSPECIFIED Qualifiers: Schizophrenia type: unspecified Qualified Code(s): F20.9 - Schizophrenia, unspecified (6) Hypertension Code(s): I10 - ESSENTIAL (PRIMARY) HYPERTENSION Qualifiers: Hypertension type: essential hypertension Qualified Code(s): I10 - Essential (primary) hypertension (7) Obstructive sleep apnea on CPAP Code(s): G47.33 - OBSTRUCTIVE SLEEP APNEA (ADULT) (PEDIATRIC) (8) Hypothyroidism Code(s): E03.9 - HYPOTHYROIDISM, UNSPECIFIED Qualifiers: Hypothyroidism type: unspecified Qualified Code(s): E03.9 - Hypothyroidism, unspecified (9) Hyperlipidemia Code(s): E78.5 - HYPERLIPIDEMIA, UNSPECIFIED Qualifiers: Hyperlipidemia type: pure hypercholesterolemia Qualified Code(s): E78.0 - Pure hypercholesterolemia Assessment/Plan 1. Possible syncope status post fall 2. HTN/HCVD 3. Hypothyroidism 4. Hyperlipidemia 5. Schizophrenia 6. History of breast CA 7. OSAS on cpap PLAN: 1. Continue ASA 81 mg QD, Accupril 10 mg QD and Crestor 10 mg QD. 2. Neuro input noted. 3. Echocardiography and carotid Doppler reports noted 4. D/c planning
[2016-12-05] MEDS ORDERED: IBUPROFEN 400 MG TABLET (FP) PO PRN (11:01)
[2016-12-05] MEDS: SODIUM CHLORIDE 1,000 ML IV SCH ×2 (11:41→15:16)
[2016-12-05] MEDS: ZIPRASIDONE 40 MG CAPSULE (FP) PO SCH ×2 (11:42→21:39)
[2016-12-05] MEDS: ANASTROZOLE 1 MG TABLET PO SCH (11:42)
[2016-12-05] MEDS: QUINAPRIL HCL 10 MG TABLET (FP) PO SCH (11:43)
--- NOTE | 2016-12-05 12:22 | PN ---
Progress Note (short form) - Note Progress Note: PULMONARY CONSULTATION DICTATED 12/05/16 IMP COPD SYNCOPE HTN OSAS DM H/O BREAST CA HYPOTHYROIDISM SMOKER PLAN INHALED BRONCHODILATORS PRN PFTS OUTPATIENT SMOKING CESSATION COUNSELED CPAP WT REDUCTION DR AVERY Problem List - Problems (1) Dehydration syndrome Code(s): E86.0 - DEHYDRATION (2) Head injury Code(s): S09.90XA - UNSPECIFIED INJURY OF HEAD, INITIAL ENCOUNTER Qualifiers: Encounter type: initial encounter Qualified Code(s): S09.90XA - Unspecified injury of head, initial encounter (3) Hyperlipidemia Code(s): E78.5 - HYPERLIPIDEMIA, UNSPECIFIED Qualifiers: Hyperlipidemia type: pure hypercholesterolemia Qualified Code(s): E78.0 - Pure hypercholesterolemia (4) Hypertension Code(s): I10 - ESSENTIAL (PRIMARY) HYPERTENSION Qualifiers: Hypertension type: essential hypertension Qualified Code(s): I10 - Essential (primary) hypertension (5) Hypothyroidism Code(s): E03.9 - HYPOTHYROIDISM, UNSPECIFIED Qualifiers: Hypothyroidism type: unspecified Qualified Code(s): E03.9 - Hypothyroidism, unspecified (6) Obstructive sleep apnea on CPAP Code(s): G47.33 - OBSTRUCTIVE SLEEP APNEA (ADULT) (PEDIATRIC) (7) Syncope and collapse Code(s): R55 - SYNCOPE AND COLLAPSE (8) Breast CA Code(s): C50.919 - MALIGNANT NEOPLASM OF UNSP SITE OF UNSPECIFIED FEMALE BREAST (9) Schizophrenia Code(s): F20.9 - SCHIZOPHRENIA, UNSPECIFIED Qualifiers: Schizophrenia type: unspecified Qualified Code(s): F20.9 - Schizophrenia, unspecified (10) Shortness of breath Code(s): R06.02 - SHORTNESS OF BREATH (11) COPD (chronic obstructive pulmonary disease) Code(s): J44.9 - CHRONIC OBSTRUCTIVE PULMONARY DISEASE, UNSPECIFIED (12) Tobacco abuse Code(s): Z72.0 - TOBACCO USE (13) Tobacco abuse counseling Code(s): Z71.6 - TOBACCO ABUSE COUNSELING
--- NOTE | 2016-12-05 13:19 | CONS ---
DATE OF CONSULTATION: 12/05/2016 REFERRING PHYSICIAN: Tej Chamberlain MD HISTORY: The patient is a 60-year-old white female with past medical history of morbid obesity, insulin-dependent diabetes mellitus, COPD, hypertension, history of breast cancer status post chemotherapy currently on maintenance therapy, history of hyperlipidemia, hypertension, longstanding history of tobacco use still smoking approximately 1/2 pack per day admitted to [facility] status post fall and possible syncope. The patient states she woke up and starting ambulated and felt lightheaded and fell. She states that she woke up and she noticed she was bleeding from her forehead at which time she presented to the emergency room. Denied any complaints of chest pain, nausea, vomiting, or diaphoresis. She presented to the emergency room. On admission, she was evaluated by Dr. George for Cardiology consultation as well as Dr. Priest for Neurology consultation. Of note, the patient's head CT was within normal limits. The patient states this was his 2nd episode of syncope within normal limits year. The patient has a history of tobacco use. Used to smoke a pack a day, currently 1/2 pack a day. Does complain of shortness of breath with minimal exertion. She states she is unable to take inhalers secondary to those palpitations. She noticed she also has a history of sleep apnea for which she is currently on CPAP with which she states she is compliant. She denies any history of occupational exposure to chemicals or fumes. There is no history of DVT or PE in the past. PAST MEDICAL HISTORY: Again, includes obstructive sleep apnea on CPAP, hypertension, COPD, morbid obesity, history of syncope, history of breast cancer status post chemotherapy, insulin-dependent diabetes mellitus, osteoarthritis, hypothyroidism. REVIEW OF SYSTEMS: No orthopnea. Positive dyspnea on exertion. No headache, no visual disturbances, no chest pain, no palpitations, no cough, no hemoptysis, no abdominal pain. CURRENT MEDICATIONS: Include Accupril, Lovenox, Neurontin, Arimidex, Seroquel, Geodon, BuSpar, Ativan, NovoLog, Levemir, Motrin, and Synthroid. PHYSICAL EXAMINATION: General: The patient is a well-developed, well-nourished female awake and alert in no acute distress. Vital Signs: She is currently afebrile. Blood pressure 140/70, respiratory rate 20, O2 saturation 96%. HEENT: Normocephalic and atraumatic. Neck: Supple. Heart: Regular. S1, S2. Chest: Clear. Abdomen: Soft. Bowel sounds are present. Extremities: No cyanosis or edema. LABORATORIES: BUN 13, creatinine 0.9. Sodium 146, WBCs 10.6, hemoglobin 13.2, hematocrit 39.5 with a platelet count of 156,000. D-dimer is 274. Head CT: No acute intracranial pathology. Chest x-ray: No acute infiltrate sign or effusions. IMPRESSION: 1. Dysplasia most likely secondary to chronic obstructive pulmonary disease with longstanding history of tobacco use. 2. Status post syncope. 3. Obstructive sleep apnea on continuous positive airway pressure. 4. History of breast cancer status post chemotherapy. 5. Hyperlipidemia. 6. Hypothyroidism. PLAN: Lung cancer screening with low dose CT scan of the chest. Pulmonary function tests as an outpatient. Continue CPAP. LORNA AVERY M.D. [id number]
--- NOTE | 2016-12-05 14:48 | HOL ---
Hook-up date: 2016-12-04 11:02:00 Duration: 23:46:00 Test Indications: R/O ARRHYTHMIA, SYNCOPE Medications: [id number] QRS complexes 40 Ventricular ectopics which represent <1 % of total QRS comp. 139 Supraventricular ectopics which represent <1 % of total QRS comp. * Paced QRS complexs which represent % of total QRS comp. 2 % of Time Classified as Noise VENTRICULAR ECTOPY 34 Isolated 0 Bigeminal Cycles 1 Couplets 1 Runs 4 Beats in Runs 4 Beats LONGEST at 85 BPM at 18:13:46 2016-12-04 4 Beats FASTEST at 85 BPM at 18:13:46 2016-12-04 SUPRAVENTRICULAR ECTOPY 127 Isolated 2 Couplets 2 Runs 8 Beats in Runs 5 Beats LONGEST at 150 BPM at 14:59:13 2016-12-04 5 Beats FASTEST at 150 BPM at 14:59:13 2016-12-04 HEART RATES 51 MIN at 18:46:35 2016-12-04 75 AVG 95 MAX at 12:08:39 2016-12-04 LONGEST RR 1.360 secs at 18:42:05 2016-12-04 Underlying rhythm is NSR. Rare atrial premature contractions, some aberrantly conducted. Short run of paroxysmal atrial tachycardia at a rate of 150bpm, lasting 5 beats. Rare single VPCs. Confirmed by PAUL RIOS MD ([id number]) on 12/05/2016 2:48:05 PM Referred By: Overread By: PAUL RIOS MD
--- NOTE | 2016-12-05 15:03 | CONSULT ---
Consult - text type - Consultation Consultation Note: Patient seen for Psych Consult. Unable to dictate on Psych template. 60 yr old with a history of Scizophrenia, being treated by a pvt psych. She apparantly fell at home. There has been no recent changes in her psych med combination. She has been clinically stable on [facility]. MS: alert, oriented, not diaplaying any acute psychosis or self damaging behaviour. Cognitin is grossly intacy. Judgement is intact. Plan: Continue with [facility].
[2016-12-05] MEDS: ROSUVASTATIN CA 10 MG TABLET (FP) PO SCH (21:37)
[2016-12-05] MEDS: INSULIN DETEMIR 100 UNITS/ML MDV SQ SCH (21:38)
[2016-12-05] MEDS: QUEtiapine FUMARATE 200 MG TABLET PO SCH (21:38)
[2016-12-06] MEDS: INSULIN (NOVOLOG) ASPART 100 UNITS/ML 10ML VIAL SQ SCH (06:16)
[2016-12-06] MEDS ORDERED: PT OWN MED DRAWER 7, Y5N ONE ×2 (06:19→09:14)
[2016-12-06] MEDS: LEVOTHYROXINE NA 150 MCG TABLET PO SCH (06:20)
[2016-12-06] MEDS: GABAPENTIN 100 MG CAPSULE (FP) PO SCH (06:20)
[2016-12-06] MEDS: busPIRone HCL 5 MG TABLET PO SCH (06:21)
[2016-12-06 06:33] VITALS: TEMP 98
[2016-12-06 08:53] VITALS: BP 129/87; PULSE 71
--- NOTE | 2016-12-06 10:35 | DS ---
Physical Examination Vital Signs: Vital Signs Temperature 98 F 12/06/16 06:00 Pulse Rate 71 12/06/16 08:50 Respiratory Rate 18 12/06/16 08:53 Blood Pressure 129/87 12/06/16 08:50 O2 Sat by Pulse Oximetry (%) 96 12/06/16 02:54 Findings/Remarks: doing well. no complains. wants to go home PSYCH F/U NOTED Constitutional: Yes: No Distress, Calm Eyes: Yes: Conjunctiva Clear Neck: Yes: Supple Cardiovascular: Yes: Regular Rate and Rhythm Respiratory: Yes: Diminished Gastrointestinal: Yes: Soft Edema: No Neurological: Yes: Alert Psychiatric: Yes: Alert Labs: CBC, BMP 12/04/16 05:35 Discharge Summary Reason For Visit: SYNCOPE,COLLAPSE,HEAD INJURY Current Active Problems COPD (chronic obstructive pulmonary disease) (Acute) Dehydration syndrome (Acute) Head injury (Acute) Hyperlipidemia (Acute) Hypertension (Acute) Hypothyroidism (Acute) Obstructive sleep apnea on CPAP (Acute) Scalp laceration (Acute) Syncope and collapse (Acute) Tobacco abuse (Acute) Tobacco abuse counseling (Acute) Hospital Course: s/p syncope / fall monitored on tele doing well d/c today Pt qualified for home oxygen- delivered-- 2l Smoking cessation counselled strongly charla pt Meds reconcilled/ discussed. Plan discussed with nursing staff. Pt to follow in office next week. Spend 35 min in examining / documenting / coordating care. Discussed with pulmonary - Dr. Combs also -- Agree with plan. Condition: Stable - Instructions Diet, Activity, Other Instructions: Continuous supplemental oxygen Smoking cessation F/U w/your primary physician as scheduled Disposition: HOME - Home Medications Comprehensive Discharge Medication List: Ambulatory Orders Aspirin [ASA -] 81 mg PO DAILY 03/20/14 Buspirone HCl [Buspar] 15 mg PO TID 03/20/14 Insulin (Levemir) [Levemir Flexpen -] 10 units SQ HS 03/20/14 Insulin (Novolog) [Novolog Flexpen -] 0 units SQ ASDIR 03/20/14 Levothyroxine [Synthroid -] 300 mcg PO DAILY 03/20/14 Lorazepam [Ativan] 1 mg PO TID PRN 03/20/14 Polyethylene Glycol 3350 [Miralax 119 gm Btl -] 17 gm PO DAILY 03/20/14 Quetiapine Fumarate [Seroquel -] 800 mg PO HS 03/20/14 Quinapril HCl [Accupril -] 10 mg PO DAILY 03/20/14 Rosuvastatin Calcium [Crestor] 10 mg PO HS 03/20/14 Carboxymethylcellulos/Glycerin [Refresh Optive Eye Drops] 1 drop OP BID FA/Mv,Ca,Iron,Min/Lycopene/Lut [Centrum Tablet] 1 each PO DAILY 07/03/14 Ziprasidone HCl [Geodon] 40 mg PO BID 07/03/14 Anastrozole [Arimidex -] 1 mg PO DAILY 12/03/16 Gabapentin [Neurontin -] 100 mg PO Q8H 12/03/16
--- NOTE | 2016-12-06 11:54 | PN ---
Progress Note, Physician Chief Complaint: Events noted Not in distress History of Present Illness: Patient was seen and examined. Awake and alert. Chart was reviewed Denies chest pain, SOB or palpitation - Objective Vital Signs: Vital Signs Temperature 98 F 12/06/16 06:00 Pulse Rate 71 12/06/16 08:50 Respiratory Rate 18 12/06/16 08:53 Blood Pressure 129/87 12/06/16 08:50 O2 Sat by Pulse Oximetry (%) 96 12/06/16 02:54 Neck: Yes: Supple Cardiovascular: Yes: Regular Rate and Rhythm, S1, S2 Respiratory: Yes: CTA Bilaterally Gastrointestinal: Yes: Normal Bowel Sounds, Soft, Abdomen, Obese. No: Tenderness Edema: No Additional Findings/Remarks: Review of Systems Cardiovascular: As noted above Respiratory: denies: denies: Cough or Sputum Production Gastrointestinal: denies: Nausea, Vomiting, Constipation or Abdominal Discomfort but reports intermittent Diarrhea and persistent Dysphagia Musculoskeletal: No Symptoms Reported Neuro: Possible syncope, no seizure Problem List - Problems (1) Head injury Code(s): S09.90XA - UNSPECIFIED INJURY OF HEAD, INITIAL ENCOUNTER Qualifiers: Encounter type: initial encounter Qualified Code(s): S09.90XA - Unspecified injury of head, initial encounter (2) Hypertension Code(s): I10 - ESSENTIAL (PRIMARY) HYPERTENSION Qualifiers: Hypertension type: essential hypertension Qualified Code(s): I10 - Essential (primary) hypertension (3) Scalp laceration Code(s): S01.01XA - LACERATION WITHOUT FOREIGN BODY OF SCALP, INITIAL ENCOUNTER Qualifiers: Encounter type: initial encounter Qualified Code(s): S01.01XA - Laceration without foreign body of scalp, initial encounter (4) Syncope and collapse Code(s): R55 - SYNCOPE AND COLLAPSE (5) Breast CA Code(s): C50.919 - MALIGNANT NEOPLASM OF UNSP SITE OF UNSPECIFIED FEMALE BREAST (6) Schizophrenia Code(s): F20.9 - SCHIZOPHRENIA, UNSPECIFIED Qualifiers: Schizophrenia type: unspecified Qualified Code(s): F20.9 - Schizophrenia, unspecified Assessment/Plan 1. Possible syncope status post fall 2. HTN/HCVD 3. Hypothyroidism 4. Hyperlipidemia 5. Schizophrenia 6. History of breast CA PLAN: 1. Continue ASA 81 mg QD, Accupril 10 mg QD and Crestor 10 mg QD. 2. Follow up as outpatient Further plans are to follow Servando Pritchard MD
== END 2016-12-06 11:26 | disposition home or self-care (01) | DRG 605 ==
LOC: JER 06:38 → JERBED 09:48 → J4W 13:08
PROVIDERS: ADMIT Internal Medicine; ATTEND Internal Medicine
DX: S01.01XA Laceration without foreign body of scalp, initial encounter (principal); Z68.42 Body mass index [BMI] 45.0-49.9, adult; R55 Syncope and collapse; E86.0 Dehydration; S09.90XA Unspecified injury of head, initial encounter; J44.9 Chronic obstructive pulmonary disease, unspecified; I10 Essential (primary) hypertension; Z85.3 Personal history of malignant neoplasm of breast; Z79.4 Long term (current) use of insulin; F20.9 Schizophrenia, unspecified; E03.9 Hypothyroidism, unspecified; E78.5 Hyperlipidemia, unspecified; E66.9 Obesity, unspecified; E11.42 Type 2 diabetes mellitus with diabetic polyneuropathy; E66.01 Morbid (severe) obesity due to excess calories; G47.33 Obstructive sleep apnea (adult) (pediatric); Z87.891 Personal history of nicotine dependence; W19.XXXA Unspecified fall, initial encounter; Y99.8 Other external cause status; Y92.098 Other place in other non-institutional residence as the place of occurrence of the external cause
CPT/HCPCS: 36415; 70450-TC; 71010-TC; 72125-TC; 72170-TC; 80048; 80053; 81003; 82550; 82607; 83735; 84439; 84443; 84484; 85025; 85379; 85610; 85730; 87086; 90715; 93005; 93010; 93225; 93226; 93306-TC; 93880-TC; 93970-TC; 94660; 94761; 97116-GP; 97162-PG; 99285-25

== ENCOUNTER 2017-09-22 16:09 | Inpatient (IN) | payer OTHER, MEDICARE ==
--- NOTE | 2017-09-22 16:32 | PDOC ---
Rapid Medical Evaluation Time Seen by Provider: 09/22/17 16:29 Medical Evaluation: Allergies Allergy/AdvReac Type Severity Reaction Status Date / Time acetaminophen [From Tylenol] Allergy "VOMITS" Verified 12/03/16 06:52 almond oil Allergy "ITCHY" Verified 12/03/16 06:52 citalopram hydrobromide Allergy "STROKE Verified 12/03/16 06:52 [From Celexa] LIKE SYMPTOMS" divalproex sodium Allergy "PANCREATIT Verified 12/03/16 06:52 [From Depakote] IS" Iodinated Contrast- Oral and Allergy Verified 12/03/16 06:52 IV Dye [Iodinated Contrast Media - IV Dye] lamotrigine [From Lamictal] Allergy "FACE Verified 12/03/16 06:52 SWELLS" lithium [Donahue] Allergy "SEIZURES,SWOLLEN Verified 12/03/16 06:52 ARMS/LEGS" meperidine HCl [From Demerol] Allergy "TURNS RED Verified 12/03/16 06:52 WHEN MIXED WITH NOVACAINE" shellfish derived Allergy "TURNED Verified 12/03/16 06:52 RED /ITCHY" sulfamethoxazole Allergy "COLLAPSED, Verified 12/03/16 06:52 [From Bactrim] HEART ISSUE" topiramate [From Topamax] Allergy TO Verified 12/03/16 06:52 POISONOUS LEVELS" trimethoprim [From Bactrim] Allergy "COLLAPSED,HEART Verified 12/03/16 06:52 ISSUE" 09/22/17 16:30 I have performed a brief in person evaluation of this patient. The patient presents with chief complaint of : constipation abdominal pain, has known abdominal hernia , c/o pain and "twisting" . Pt states she is to see surgeon. PMD Pertinent PE findings: abd pain , nausea I have ordered the following: cbc, cmp, ua, inr/pt, type and screen, NPO The patient will proceed to the ER for further evaluation.
[2017-09-22 16:33] VITALS: BMI 43.6
[2017-09-22 16:50] LABS: BASOPHIL 0.7 % (0-2.0); MCH 29.6 pg (25.7-33.7); MCHC 33.7 g/dl (32.0-36.0); MEAN CELL VOLUME 87.7 fl (80-96); NEUTROPHILS 68.8 % (42.8-82.8); PLATELET COUNT 213 K/MM3 (134-434); RDW 14.1 % (11.6-15.6)
[2017-09-22 17:20] LABS: INR 0.95 (0.82-1.09); PROTHROMBIN TIME (PATIENT) 10.7 SEC (9.98-11.88)
[2017-09-22 17:21] LABS: ALBUMIN 4.2 g/dl (3.4-5.0); ANION GAP 14 (8-16); BILIRUBIN,TOTAL 0.4 mg/dL (0.2-1.0); CO2 22 mmol/L (21-32); CREATININE 1.6 mg/dL (0.55-1.02); GLUCOSE,RANDOM 228 mg/dL (74-106); SGOT/AST 26 U/L (15-37); SGPT/ALT 44 U/L (12-78); TOT PROT 7.8 g/dl (6.4-8.2)
[2017-09-22 17:31] LABS: ALK PHOS 161 U/L (45-117)
[2017-09-22] MEDS ORDERED: ONDANSETRON 4 MG/2 ML VIAL ONE ×2 (18:59→19:07)
[2017-09-22] MEDS ORDERED: ONDANSETRON 4 MG/2 ML VIAL IVPB ONE (19:00)
[2017-09-22] MEDS ORDERED: morphine CARPU-JECT 4 MG/1 ML DISP.SYRIN IVPUSH ONE (19:11)
--- NOTE | 2017-09-22 19:16 | PDOC ---
History of Present Illness - History of Present Illness Initial Comments: 09/22/17 19:39 Patient is a 61 year old female with a h/o insulin-dependent diabetes, COPD, hypertension, history of breast cancer, morbid obesity, on 3L of oxygen, who was BIBA and was referred by her urologist to the ER for a hernia. Patient saw her urologist who referred her to the ER for a hernia. Patient states she is in a lot of pain and is tender to palpation of abdomen near navel area where hernia is situated. She states that she has been unable to complete a bowel movement. She denies recent fevers, chills, headache or dizziness. She denies recent nausea, vomit, diarrhea.. She denies recent dysuria, frequency, urgency or hematuria. She denies recent chest pain or shortness of breath. Allergies: NKA Past surgical history: None reported. Social history: Nonsmoker. Denies EtOH use and recreational drug use. Primary Care Physician: Tej Chamberlain Urologist: Myron Wright <Ngoc Gomez - Last Filed: 09/22/17 20:53> <Brenda Sanches - Last Filed: 09/22/17 23:48> - General Chief Complaint: Pain, Acute Stated Complaint: PCP SENT/HERNIA Time Seen by Provider: 09/22/17 16:29 Past History <Ngoc Gomez - Last Filed: 09/22/17 20:53> - Past Medical History Anemia: No Asthma: No Cancer: Yes (breast cancer right breast lumpectomy) Cardiac Disorders: No CVA: No COPD: Yes (SLEEP APNEA-USES NASAL CPAP(SET AT 30)) CHF: No Dementia: No Diabetes: Yes GI Disorders: Yes (pancreatitis, constipation) Disorders: No HTN: Yes Hypercholesterolemia: Yes Liver Disease: No Psychiatric Problems: (SCHIZOEFFECTIVE) Seizures: Yes (LAST ONE-2YRS (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)) Thyroid Disease: Yes (hypothyroid) - Surgical History Abdominal Surgery: No Appendectomy: No Cardiac Surgery: No Cholecystectomy: Yes Lung Surgery: No Neurologic Surgery: No Orthopedic Surgery: Yes - Suicide/Smoking/Psychosocial Hx Smoking Status: Yes Smoking History: Former smoker Have you smoked in the past 12 months: No Number of Cigarettes Smoked Daily: 20 Information on smoking cessation initiated: No 'Breaking Loose' booklet given: 12/03/16 Hx Alcohol Use: No Drug/Substance Use Hx: No Substance Use Type: None Hx Substance Use Treatment: No <Brenda Sanches - Last Filed: 09/22/17 23:48> - Past Medical History Allergies/Adverse Reactions: Allergies Allergy/AdvReac Type Severity Reaction Status Date / Time acetaminophen [From Tylenol] Allergy "VOMITS" Verified 09/22/17 16:30 almond oil Allergy "ITCHY" Verified 09/22/17 16:30 citalopram hydrobromide Allergy "STROKE Verified 09/22/17 16:30 [From Celexa] LIKE SYMPTOMS" divalproex sodium Allergy "PANCREATIT Verified 09/22/17 16:30 [From Depakote] IS" Iodinated Contrast- Oral and Allergy Verified 09/22/17 16:30 IV Dye [Iodinated Contrast Media - IV Dye] lamotrigine [From Lamictal] Allergy "FACE Verified 09/22/17 16:30 SWELLS" lithium [Dillard] Allergy "SEIZURES,SWOLLEN Verified 09/22/17 16:30 ARMS/LEGS" meperidine HCl [From Demerol] Allergy "TURNS RED Verified 09/22/17 16:30 WHEN MIXED WITH NOVACAINE" shellfish derived Allergy "TURNED Verified 09/22/17 16:30 RED /ITCHY" sulfamethoxazole Allergy "COLLAPSED, Verified 09/22/17 16:30 [From Bactrim] HEART ISSUE" topiramate [From Topamax] Allergy TO Verified 09/22/17 16:30 POISONOUS LEVELS" trimethoprim [From Bactrim] Allergy "COLLAPSED,HEART Verified 09/22/17 16:30 ISSUE" Home Medications: Ambulatory Orders Buspirone HCl [Buspar] 15 mg PO TID 03/20/14 Lorazepam [Ativan] 2 mg PO HS PRN 03/20/14 Rosuvastatin Calcium [Crestor] 10 mg PO HS 03/20/14 FA/Mv,Ca,Iron,Min/Lycopene/Lut [Centrum Tablet] 1 each PO DAILY 07/03/14 Anastrozole [Arimidex -] 1 mg PO DAILY #0 12/06/16 Aspirin [ASA -] 81 mg PO DAILY #0 12/06/16 Gabapentin [Neurontin -] 100 mg PO Q8H #0 12/06/16 Insulin (Levemir) [Levemir Flexpen -] 10 units SQ HS #0 12/06/16 Insulin (Novolog) [Novolog Flexpen -] 0 units SQ ASDIR #0 12/06/16 Levothyroxine [Synthroid -] 300 mcg PO DAILY #0 12/06/16 Polyethylene Glycol 3350 [Miralax 119 gm Btl -] 17 gm PO DAILY #0 12/06/16 Quetiapine Fumarate [Seroquel -] 800 mg PO HS #0 12/06/16 Quinapril HCl [Accupril -] 10 mg PO DAILY #0 12/06/16 Ziprasidone HCl [Geodon] 40 mg PO BID #0 12/06/16 Abd/GI Specific PMHX - Complaint Specific PMHX Colitis: No Diverticulitis: No GERD: No Pancreatitis: No GI Ulcer Disease: No <Brenda Sanches - Last Filed: 09/22/17 23:48> Review of Systems - Review of Systems Comments:: 09/22/17 19:42 CONSTITUTIONAL: Present: obese, disheveled Absent: fever, chills, diaphoresis, generalized weakness, malaise, loss of appetite HEENT: Absent: rhinorrhea, nasal congestion, throat pain, throat swelling, difficulty swallowing, mouth swelling, ear pain, eye pain, visual changes CARDIOVASCULAR: Absent: chest pain, syncope, palpitations, irregular heart rate, lightheadedness , peripheral edema RESPIRATORY: Absent: cough, shortness of breath, dyspnea with exertion, orthopnea, wheezing, stridor, hemoptysis GASTROINTESTINAL: Present: periumblical pain, distension, constipation Absent: nausea, vomiting, diarrhea, melena, hematochezia GENITOURINARY: Absent: dysuria, frequency, urgency, hesitancy, hematuria, flank pain, genital pain MUSCULOSKELETAL: Absent: myalgia, arthralgia, joint swelling SKIN: Present: bilateral hand and feet eczema, hard and errthymetous. Absent: itching, pallor HEMATOLOGIC/IMMUNOLOGIC: Absent: easy bleeding, easy bruising, lymphadenopathy, frequent infections ENDOCRINE: Absent: unexplained weight gain, unexplained weight loss, heat intolerance, cold intolerance NEUROLOGIC: Absent: headache, focal weakness or paresthesias, dizziness, unsteady gait, seizure, mental status changes, bladder or bowel incontinence PSYCHIATRIC: Absent: anxiety, depression, suicidal or homicidal ideation, hallucinations. <Ngoc Goemz - Last Filed: 09/22/17 20:53> *Physical Exam - Vital Signs Last Vital Signs Temp Pulse Resp BP Pulse Ox 97.6 F 103 H 19 147/84 97 09/22/17 16:30 09/22/17 16:30 09/22/17 16:30 09/22/17 16:30 09/22/17 19:27 - Physical Exam Comments: 09/22/17 20:55 GENERAL: Morbidly obese & dishelved. Awake and alert. HEENT: Normocephalic, atraumatic. PERRLA, EOMI. No conjunctival pallor. Sclera are non- icteric. Moist mucous membranes. Oropharynx is clear. NECK: Supple. Full ROM. No JVD. Carotid pulses 2+ and symmetric, without bruits. No thyromegaly. No lymphadenopathy. CARDIOVASCULAR: Regular rate and rhythm. No murmurs, rubs, or gallops. Distal pulses are 2+ and symmetric. PULMONARY: No evidence of respiratory distress. Lungs clear to auscultation bilaterally. No wheezing, rales or rhonchi. ABDOMINAL: +Protuberant belly, periumbilical area tender to palpation. Soft. No rebound or guarding. No organomegaly. Normoactive bowel sounds. MUSCULOSKELETAL Normal range of motion at all joints. No bony deformities or tenderness. No CVA tenderness. EXTREMITIES: +Scaly dry palms and feet (errythematous). No cyanosis. No clubbing. No edema. No calf tenderness. SKIN: Warm and dry. Normal capillary refill. No rashes. No jaundice. NEUROLOGICAL: Alert, awake, appropriate. Cranial nerves 2-12 intact. No deficits to light touch and temperature in face, upper extremities and lower extremities. No motor deficits in the in face, upper extremities and lower extremities. Normoreflexic in the upper and lower extremities. Normal speech. Toes are down-going bilaterally. Gait is normal without ataxia. PSYCHIATRIC: Cooperative. Good eye contact. Appropriate mood and affect. <Ngoc Gomez - Last Filed: 09/22/17 20:53> - Vital Signs Last Vital Signs Temp Pulse Resp BP Pulse Ox 97.6 F 103 H 19 147/84 97 09/22/17 16:30 09/22/17 16:30 09/22/17 16:30 09/22/17 16:30 09/22/17 16:30 <MyronBrenda Anastasia - Last Filed: 09/22/17 23:48> ED Treatment Course - LABORATORY CBC & Chemistry Diagram: 09/22/17 16:40 09/22/17 16:40 - ADDITIONAL ORDERS Additional order review: Laboratory Results 09/22/17 09/22/17 09/22/17 19:10 16:40 16:40 PT with INR INR PTT (Actin FS) 33.6 Sodium Potassium Chloride Carbon Dioxide Anion Gap BUN Creatinine Creat Clearance w eGFR Random Glucose Calcium Total Bilirubin AST ALT Alkaline Phosphatase Total Protein Albumin Urine Color Straw Urine Appearance Clear Urine pH 5.0 Ur Specific [place] 1.008 Urine Protein Negative Urine Glucose (UA) Negative Urine Ketones Negative Urine Blood Negative Urine Nitrite Negative Urine Bilirubin Negative Urine Urobilinogen Negative Blood Type A POSITIVE Antibody Screen Negative 09/22/17 09/22/17 16:40 16:40 PT with INR 10.70 INR 0.95 PTT (Actin FS) Sodium 137 Potassium 4.1 Chloride 101 Carbon Dioxide 22 D Anion Gap 14 BUN 20 H Creatinine 1.6 H D Creat Clearance w eGFR 32.88 Random Glucose 228 H Calcium 9.0 Total Bilirubin 0.4 D AST 26 D ALT 44 D Alkaline Phosphatase 161 H Total Protein 7.8 Albumin 4.2 D Urine Color Urine Appearance Urine pH Ur Specific [place] Urine Protein Urine Glucose (UA) Urine Ketones Urine Blood Urine Nitrite Urine Bilirubin Urine Urobilinogen Blood Type Antibody Screen 09/22/17 16:40 RBC 4.73 MCV 87.7 MCHC 33.7 RDW 14.1 MPV 8.0 Neutrophils % 68.8 Lymphocytes % 19.9 D Monocytes % 7.6 Eosinophils % 3.0 Basophils % 0.7 - Medications Given in the ED: ED Medications Discontinued Medications Generic Name Dose Route Start Last Admin Trade Name Freq PRN Reason Stop Dose Admin Morphine Sulfate 4 mg 09/22/17 19:11 09/22/17 19:19 Morphine Injection - IVPUSH 09/22/17 19:12 4 mg ONCE ONE Administration Ondansetron HCl 8 mg 09/22/17 19:00 09/22/17 19:12 Zofran Injection IVPB 09/22/17 19:01 8 mg ONCE ONE Administration <Ngoc Gomez - Last Filed: 09/22/17 20:53> - LABORATORY CBC & Chemistry Diagram: 09/22/17 16:40 09/22/17 16:40 - ADDITIONAL ORDERS Additional order review: Laboratory Results 09/22/17 09/22/17 09/22/17 16:40 16:40 16:40 PT with INR INR PTT (Actin FS) 33.6 Sodium 137 Potassium 4.1 Chloride 101 Carbon Dioxide 22 D Anion Gap 14 BUN 20 H Creatinine 1.6 H D Creat Clearance w eGFR 32.88 Random Glucose 228 H Calcium 9.0 Total Bilirubin 0.4 D AST 26 D ALT 44 D Alkaline Phosphatase 161 H Total Protein 7.8 Albumin 4.2 D Blood Type A POSITIVE Antibody Screen Negative 09/22/17 16:40 PT with INR 10.70 INR 0.95 PTT (Actin FS) Sodium Potassium Chloride Carbon Dioxide Anion Gap BUN Creatinine Creat Clearance w eGFR Random Glucose Calcium Total Bilirubin AST ALT Alkaline Phosphatase Total Protein Albumin Blood Type Antibody Screen 09/22/17 16:40 RBC 4.73 MCV 87.7 MCHC 33.7 RDW 14.1 MPV 8.0 Neutrophils % 68.8 Lymphocytes % 19.9 D Monocytes % 7.6 Eosinophils % 3.0 Basophils % 0.7 - RADIOLOGY Radiology Studies Ordered: Category Date Time Status ABDOMEN & PELVIS CT W/O CONTR [CT] Stat CT Scan 09/22/17 18:41 Ordered - Medications Given in the ED: ED Medications Discontinued Medications Generic Name Dose Route Start Last Admin Trade Name Jeyq PRN Reason Stop Dose Admin Ondansetron HCl 8 mg 09/22/17 19:00 09/22/17 19:12 Zofran Injection IVPB 09/22/17 19:01 8 mg ONCE ONE Administration <Brenda Sanches - Last Filed: 09/22/17 23:48> *DC/Admit/Observation/Transfer - Attestations Scribe Attestion: 09/22/17 19:43 Documentation prepared by Ngoc Gomez, acting as clinical medical transcriptionist for Brenda Sanches MD. <Ngoc Gomez - Last Filed: 09/22/17 20:53> - Discharge Dispostion Admit: Yes <Brenda Sanches - Last Filed: 09/22/17 23:48> Diagnosis at time of Disposition: Abdominal pain Qualifiers: Abdominal location: periumbilical Qualified Code(s): R10.33 - Periumbilical pain; R10.33 - Periumbilical pain - Referrals Referrals: Tej Chamberlain MD [Primary Care Provider] -
[2017-09-22] MEDS ORDERED: morphine SULFATE 4 MG/ML VIAL ONE (19:17)
[2017-09-22 19:27] LABS: URINE APPEARANCE CLEAR; URINE BILIRUBIN NEGATIVE (NEGATIVE); URINE BLOOD NEGATIVE (NEGATIVE); URINE COLOR STRAW; URINE GLUCOSE (UA) NEGATIVE (NEGATIVE); URINE KETONE NEGATIVE (NEGATIVE); URINE NITRITE NEGATIVE (NEGATIVE); URINE PROTEIN NEGATIVE (NEGATIVE); URINE UROBILINOGEN NEGATIVE mg/dL (0.2-1.0)
[2017-09-22 21:22] LABS: URINE LEUK ESTERASE Negative (NEGATIVE)
[2017-09-22] MEDS ORDERED: SODIUM CHLORIDE 500 ML IV STA (22:38)
[2017-09-23] MEDS ORDERED: morphine CARPU-JECT 4 MG/1 ML DISP.SYRIN IVPUSH ONE (01:17)
[2017-09-23] MEDS ORDERED: morphine SULFATE 4 MG/ML VIAL ONE ×2 (01:22→06:51)
--- NOTE | 2017-09-23 02:10 | PDOC ---
*Physical Exam - Vital Signs Last Vital Signs Temp Pulse Resp BP Pulse Ox 97.6 F 72 22 158/70 97 09/22/17 16:30 09/22/17 21:16 09/22/17 21:16 09/22/17 21:16 09/22/17 21:16 <ZhaoJarett - Last Filed: 09/23/17 02:09> - Vital Signs Last Vital Signs Temp Pulse Resp BP Pulse Ox 97.6 F 72 22 158/70 97 09/22/17 16:30 09/22/17 21:16 09/22/17 21:16 09/22/17 21:16 09/22/17 21:16 <DougKraig fleming - Last Filed: 09/23/17 07:23> ED Treatment Course - LABORATORY CBC & Chemistry Diagram: 09/22/17 16:40 09/22/17 16:40 - ADDITIONAL ORDERS Additional order review: Laboratory Results 09/22/17 09/22/17 09/22/17 19:10 16:40 16:40 PT with INR INR PTT (Actin FS) 33.6 Sodium Potassium Chloride Carbon Dioxide Anion Gap BUN Creatinine Creat Clearance w eGFR Random Glucose Calcium Total Bilirubin AST ALT Alkaline Phosphatase Total Protein Albumin Urine Color Straw Urine Appearance Clear Urine pH 5.0 Ur Specific [place] 1.008 Urine Protein Negative Urine Glucose (UA) Negative Urine Ketones Negative Urine Blood Negative Urine Nitrite Negative Urine Bilirubin Negative Urine Urobilinogen Negative Ur Leukocyte Esterase Negative Blood Type A POSITIVE Antibody Screen Negative 09/22/17 09/22/17 16:40 16:40 PT with INR 10.70 INR 0.95 PTT (Actin FS) Sodium 137 Potassium 4.1 Chloride 101 Carbon Dioxide 22 D Anion Gap 14 BUN 20 H Creatinine 1.6 H D Creat Clearance w eGFR 32.88 Random Glucose 228 H Calcium 9.0 Total Bilirubin 0.4 D AST 26 D ALT 44 D Alkaline Phosphatase 161 H Total Protein 7.8 Albumin 4.2 D Urine Color Urine Appearance Urine pH Ur Specific [place] Urine Protein Urine Glucose (UA) Urine Ketones Urine Blood Urine Nitrite Urine Bilirubin Urine Urobilinogen Ur Leukocyte Esterase Blood Type Antibody Screen 09/22/17 16:40 RBC 4.73 MCV 87.7 MCHC 33.7 RDW 14.1 MPV 8.0 Neutrophils % 68.8 Lymphocytes % 19.9 D Monocytes % 7.6 Eosinophils % 3.0 Basophils % 0.7 - Medications Given in the ED: ED Medications Discontinued Medications Generic Name Dose Route Start Last Admin Trade Name Evie PRN Reason Stop Dose Admin Sodium Chloride 500 mls @ 500 mls/hr 09/22/17 22:38 09/23/17 01:32 Normal Saline - IV 09/22/17 23:37 500 mls/hr ASDIR STA Administration Morphine Sulfate 4 mg 09/22/17 19:11 09/22/17 19:19 Morphine Injection - IVPUSH 09/22/17 19:12 4 mg ONCE ONE Administration Morphine Sulfate 4 mg 09/23/17 01:17 09/23/17 01:32 Morphine Injection - IVPUSH 09/23/17 01:18 4 mg ONCE ONE Administration Ondansetron HCl 8 mg 09/22/17 19:00 09/22/17 19:12 Zofran Injection IVPB 09/22/17 19:01 8 mg ONCE ONE Administration <Jarett Churchill - Last Filed: 09/23/17 02:09> - LABORATORY CBC & Chemistry Diagram: 09/22/17 16:40 09/22/17 16:40 - ADDITIONAL ORDERS Additional order review: Laboratory Results 09/23/17 09/22/17 03:05 19:10 POC Glucometer 157.04039 Urine Color Straw Urine Appearance Clear Urine pH 5.0 Ur Specific [place] 1.008 Urine Protein Negative Urine Glucose (UA) Negative Urine Ketones Negative Urine Blood Negative Urine Nitrite Negative Urine Bilirubin Negative Urine Urobilinogen Negative Ur Leukocyte Esterase Negative 09/23/17 09/22/17 03:05 16:40 RBC 4.73 MCV 87.7 MCHC 33.7 RDW 14.1 MPV 8.0 Neutrophils % 68.8 Lymphocytes % 19.9 D Monocytes % 7.6 Eosinophils % 3.0 Basophils % 0.7 POC Glucometer 157.83148 - Medications Given in the ED: ED Medications Discontinued Medications Generic Name Dose Route Start Last Admin Trade Name Evie PRN Reason Stop Dose Admin Sodium Chloride 500 mls @ 500 mls/hr 09/22/17 22:38 09/23/17 01:32 Normal Saline - IV 09/22/17 23:37 500 mls/hr ASDIR STA Administration Morphine Sulfate 4 mg 09/22/17 19:11 09/22/17 19:19 Morphine Injection - IVPUSH 09/22/17 19:12 4 mg ONCE ONE Administration Morphine Sulfate 4 mg 09/23/17 01:17 09/23/17 01:32 Morphine Injection - IVPUSH 09/23/17 01:18 4 mg ONCE ONE Administration Ondansetron HCl 8 mg 09/22/17 19:00 09/22/17 19:12 Zofran Injection IVPB 09/22/17 19:01 8 mg ONCE ONE Administration <Kraig Camacho - Last Filed: 09/23/17 07:23> *DC/Admit/Observation/Transfer - Attestations Physician Attestion: 09/23/17 02:09 I, Dr. Jarett Churchill, attest that this document has been prepared under my direction and personally reviewed by me in its entirety. I further attest, that it accurately reflects all work, treatment, procedures and medical decision -making performed by me. <Jarett Churchill - Last Filed: 09/23/17 02:09> - Discharge Dispostion Admit: Yes <Kraig Camacho - Last Filed: 09/23/17 07:23> Diagnosis at time of Disposition: Abdominal pain Qualifiers: Abdominal location: periumbilical Qualified Code(s): R10.33 - Periumbilical pain - Discharge Dispostion Condition at time of disposition: Stable - Referrals Referrals: Tej Chamberlain MD [Primary Care Provider] - - Patient Instructions - Post Discharge Activity
[2017-09-23] MEDS ORDERED: ONDANSETRON 4 MG/2 ML VIAL ONE (06:52)
--- NOTE | 2017-09-23 07:51 | PDOC ---
*Physical Exam - Vital Signs Last Vital Signs Temp Pulse Resp BP Pulse Ox 97.6 F 72 22 158/70 97 09/22/17 16:30 09/22/17 21:16 09/22/17 21:16 09/22/17 21:16 09/22/17 21:16 ED Treatment Course - LABORATORY CBC & Chemistry Diagram: 09/22/17 16:40 09/22/17 16:40 - ADDITIONAL ORDERS Additional order review: Laboratory Results 09/23/17 09/22/17 03:05 19:10 POC Glucometer 157.74262 Urine Color Straw Urine Appearance Clear Urine pH 5.0 Ur Specific [place] 1.008 Urine Protein Negative Urine Glucose (UA) Negative Urine Ketones Negative Urine Blood Negative Urine Nitrite Negative Urine Bilirubin Negative Urine Urobilinogen Negative Ur Leukocyte Esterase Negative 09/23/17 09/22/17 03:05 16:40 RBC 4.73 MCV 87.7 MCHC 33.7 RDW 14.1 MPV 8.0 Neutrophils % 68.8 Lymphocytes % 19.9 D Monocytes % 7.6 Eosinophils % 3.0 Basophils % 0.7 POC Glucometer 157.44346 - Medications Given in the ED: ED Medications Discontinued Medications Generic Name Dose Route Start Last Admin Trade Name Freq PRN Reason Stop Dose Admin Sodium Chloride 500 mls @ 500 mls/hr 09/22/17 22:38 09/23/17 01:32 Normal Saline - IV 09/22/17 23:37 500 mls/hr ASDIR STA Administration Morphine Sulfate 4 mg 09/22/17 19:11 09/22/17 19:19 Morphine Injection - IVPUSH 09/22/17 19:12 4 mg ONCE ONE Administration Morphine Sulfate 4 mg 09/23/17 01:17 09/23/17 01:32 Morphine Injection - IVPUSH 09/23/17 01:18 4 mg ONCE ONE Administration Ondansetron HCl 8 mg 09/22/17 19:00 09/22/17 19:12 Zofran Injection IVPB 09/22/17 19:01 8 mg ONCE ONE Administration Medical Decision Making - Medical Decision Making 09/23/17 07:50 The patient was signed out to me from Dr. Churchill Patient is a 61 year old female with a h/o insulin-dependent diabetes, COPD, hypertension, history of breast cancer, morbid obesity, on 3L of oxygen, who was BIBA and was referred by her urologist to the ER for a hernia. Patient saw her urologist who referred her to the ER for a hernia. Patient states she is in a lot of pain and is tender to palpation of abdomen near navel area where hernia is situated but the pain spreads even beyond the hernia and she has alot pain when she has a BM and feels like her pain gets worse and is unable to ' complete bowel movement'. Pt had blood work reviewed and CT showing a ventral hernia requested consultation by [facility]. will discuss with dr. Chamberlain. 09/23/17 08:36 09/23/17 08:48 case yesica Nesbitt, will see the patient 09/23/17 10:18 case yesica Holcomb who was here seeing the pt suspec tincarcerated fat hernia is causing her pain requests admissin, NPO, or for later will dw dr. lang regarding admission 09/23/17 10:54 case yesica lang agreed with admisison for further management stable for med surg Case discussed in detail with admitting physician including history, physical exam and ancillary studies. Admitting physician has assumed care for the patient, will follow all pending diagnostics and will complete the evaluation and treatment. *DC/Admit/Observation/Transfer Diagnosis at time of Disposition: Abdominal wall hernia Abdominal pain Qualifiers: Abdominal location: periumbilical Qualified Code(s): R10.33 - Periumbilical pain - Discharge Dispostion Condition at time of disposition: Stable Admit: Yes - Referrals - Patient Instructions - Post Discharge Activity
[2017-09-23] MEDS ORDERED: morphine CARPU-JECT 2 MG/1 ML DISP.SYRIN IVPUSH ONE (07:56)
[2017-09-23] MEDS ORDERED: SODIUM CHLORIDE 1,000 ML IV ONE (07:56)
[2017-09-23] MEDS ORDERED: LACTATED RINGERS SOLUTION 1,000 ML/1,000 ML INFUS.BAG IV SCH (10:15)
--- NOTE | 2017-09-23 11:12 | CONSULT ---
Consult Consult Specialty:: General Surgery Referred by:: Dr. Kera Chamberlain Reason for Consultation:: incisional ventral hernia - History of Present Illness Chief Complaint: periumbilical and lower abdominal pain History of Present Illness: 61yo F with multiple medical problems including O2-dependent COPD on CPAP at night for sleep apnea, s/p lap roland with incisional periumbilical hernia, has had several days of increasing periumbilical and abdominal pain she attributes to her hernia, which has bulged more and been more tender as well. She has difficulty completing bowel movements and has had more pain with pushing recently. No n/v, no marcela f/c, some headache with the pain, had some diarrhea Thursday and 2 weeks ago but no other changes in her bowel habits, no flatus in last day. Last po was yesterday, but she is having some ice chips in ER. She saw her urologist yesterday, who examined her and was concerned about her hernia and sent her to ER. In ER, she has normal wbc, is afebrile, and had CT which shows omentum- containing periumbilical hernia with no free fluid, no bowel content, no evidence of obstruction. She has required pain medication and is still having some lower abdominal and periumbilical pain. Surgery is consulted to evaluate for possible repair. - History Source History Provided By: Patient Limitations to Obtaining History: No Limitations - Past Medical History Cardio/Vascular: Yes: HTN, Hyperlipdemia Pulmonary: Yes: COPD, O2 Dependent, Sleep Apnea Gastrointestinal: Yes: Pancreatitis Hepatobiliary: Yes: Cholelithiasis Renal/: Yes: Renal Calculi, Other (urge incontinence, enuresis) Reproductive: Yes: Postmenopausal ...: No Heme/Onc: Yes: Cancer (right breast s/p chemo, XRT, lumpectomy) Psych: Yes: Anxiety, Bipolar (schizoaffective bipolar) Musculoskeletal: Yes: Osteoarthritis Endocrine: Yes: Diabetes Mellitus, Hypothyroidism Additional Medical History: morbid obesity - Past Surgical History Past Surgical History: Yes: Breast Biopsy (left biopsy benign and right lumpectomy for cancer), Cholecystectomy (laparoscopic), Colonoscopy, Joint Replacement (left hip) - Alcohol/Substance Use Hx Alcohol Use: No History of Substance Use: reports: None - Smoking History Smoking history: Former smoker Have you smoked in the past 12 months: No Aproximately how many cigarettes per day: 20 If you are a former smoker, when did you quit?: March 2017 - Social History ADL: Independent (walks with cane) History of Recent Travel: No Home Medications - Allergies Allergies/Adverse Reactions: Allergies Allergy/AdvReac Type Severity Reaction Status Date / Time acetaminophen [From Tylenol] Allergy "VOMITS" Verified 09/22/17 16:30 almond oil Allergy "ITCHY" Verified 09/22/17 16:30 citalopram hydrobromide Allergy "STROKE Verified 09/22/17 16:30 [From Celexa] LIKE SYMPTOMS" divalproex sodium Allergy "PANCREATIT Verified 09/22/17 16:30 [From Depakote] IS" Iodinated Contrast- Oral and Allergy Verified 09/22/17 16:30 IV Dye [Iodinated Contrast Media - IV Dye] lamotrigine [From Lamictal] Allergy "FACE Verified 09/22/17 16:30 SWELLS" lithium [[place]] Allergy "SEIZURES,SWOLLEN Verified 09/22/17 16:30 ARMS/LEGS" meperidine HCl [From Demerol] Allergy "TURNS RED Verified 09/22/17 16:30 WHEN MIXED WITH NOVACAINE" shellfish derived Allergy "TURNED Verified 09/22/17 16:30 RED /ITCHY" sulfamethoxazole Allergy "COLLAPSED, Verified 09/22/17 16:30 [From Bactrim] HEART ISSUE" topiramate [From Topamax] Allergy TO Verified 09/22/17 16:30 POISONOUS LEVELS" trimethoprim [From Bactrim] Allergy "COLLAPSED,HEART Verified 09/22/17 16:30 ISSUE" - Home Medications Home Medications: Ambulatory Orders Buspirone HCl [Buspar] 15 mg PO TID 03/20/14 Lorazepam [Ativan] 2 mg PO HS PRN 03/20/14 Rosuvastatin Calcium [Crestor] 10 mg PO HS 03/20/14 FA/Mv,Ca,Iron,Min/Lycopene/Lut [Centrum Tablet] 1 each PO DAILY 07/03/14 Anastrozole [Arimidex -] 1 mg PO DAILY #0 12/06/16 Aspirin [ASA -] 81 mg PO DAILY #0 12/06/16 Gabapentin [Neurontin -] 100 mg PO Q8H #0 12/06/16 Insulin (Levemir) [Levemir Flexpen -] 10 units SQ HS #0 12/06/16 Insulin (Novolog) [Novolog Flexpen -] 0 units SQ ASDIR #0 12/06/16 Levothyroxine [Synthroid -] 300 mcg PO DAILY #0 12/06/16 Polyethylene Glycol 3350 [Miralax 119 gm Btl -] 17 gm PO DAILY #0 12/06/16 Quetiapine Fumarate [Seroquel -] 800 mg PO HS #0 12/06/16 Quinapril HCl [Accupril -] 10 mg PO DAILY #0 12/06/16 Ziprasidone HCl [Geodon] 40 mg PO BID #0 12/06/16 Home Medications (free text): Ruba Family Disease History - Family Disease History Other Family History: not pertinent Review of Systems - Review of Systems Constitutional: reports: Fever (subjective). denies: Chills Eyes: denies: Blurred Vision, Recent Change in Vision HENT: reports: Other (runny nose, possibly allergy-related). denies: Difficult Swallowing, Throat Pain Neck: denies: Swollen Glands, Tenderness Cardiovascular: denies: Chest Pain, Palpitations Respiratory: reports: SOB (at times), SOB on Exertion, Other (uses 3L NC O2 at night with CPAP, not usually during day). denies: Cough Gastrointestinal: reports: Abdominal Pain (with hpi), Constipation ("I can't complete a BM" - has trouble getting end of movements out, hard or soft), Diarrhea (had some Thursday and 2 weeks ago). denies: Nausea, Vomiting Genitourinary: reports: Incontinence (urge and bedwetting). denies: Burning, Dysuria Breasts: reports: No Symptoms Reported Musculoskeletal: reports: Joint Pain (right knee, gets injections sometimes). denies: Back Pain Integumentary: reports: Erythema (on dorsal feet - ?eczema vs contact dermatitis ? - seeing electric range preparer) Neurological: reports: Headache (with hpi), Unsteady Gait (walks with cane). denies: Dizziness Psychiatric: reports: Anxiety, Other (bipolar - managing well currently) Physical Exam Vital Signs: Vital Signs Temperature 97.6 F 09/22/17 16:30 Pulse Rate 74 09/23/17 09:03 Respiratory Rate 18 09/23/17 09:03 Blood Pressure 148/95 09/23/17 09:03 O2 Sat by Pulse Oximetry (%) 97 09/23/17 09:03 Constitutional: Yes: No Distress, Calm, Anxious (mildly), Obese (morbidly) Eyes: Yes: Conjunctiva Clear, EOM Intact HENT: Yes: Atraumatic, Normocephalic Neck: Yes: Supple, Trachea Midline Cardiovascular: Yes: Regular Rate and Rhythm (distant heart sounds secondary to body habitus). No: Murmur Respiratory: Yes: Regular, CTA Bilaterally, On Nasal O2. No: SOB, Wheezes Gastrointestinal: Yes: Normal Bowel Sounds, Soft, Abdomen, Obese, Hernia ( incisional periumbilical - bulge at umbilicus with palpable fat bulge supraumbilical c/w CT findings, partially reducible from umbilicus but not through fascia, tender, slightly pink skin of umbilical bulge, mild excoriation at periphery of umbilicus), Tenderness (bilateral lower quads, suprapubic/ hypogastric, no R/G; mildly tender at hernia and around umbilicus), Other ( healed laparoscopic scars). No: Tenderness, Epigastrium ...Rectal Exam: Yes: Deferred Renal/: Yes: Other (diaper on). No: CVA Tenderness - Left, CVA Tenderness - Right Musculoskeletal: No: Joint Stiffness, Joint Swelling Extremities: Yes: Erythema (dorsum of left foot, patch on right dorsal foot and right anterior ankle), Other (dry skin with fissures on hands, L>R) Edema: No Peripheral Pulses WNL: Yes Integumentary: Yes: Erythema (see above), Rash (dorsal feet - see above), Other (dry - see above) Neurological: Yes: Alert, Oriented Psychiatric: Yes: Alert, Oriented, Other Labs: CBC, BMP 09/22/17 16:40 09/22/17 16:40 CMP Sodium 137 mmol/L (136-145) 09/22/17 16:40 Potassium 4.1 mmol/L (3.5-5.1) 09/22/17 16:40 Chloride 101 mmol/L (98-107) 09/22/17 16:40 Carbon Dioxide 22 mmol/L (21-32) D 09/22/17 16:40 Anion Gap 14 (8-16) 09/22/17 16:40 BUN 20 mg/dL (7-18) H 09/22/17 16:40 Creatinine 1.6 mg/dL (0.55-1.02) H D 09/22/17 16:40 Creat Clearance w eGFR 32.88 (>60) 09/22/17 16:40 POC Glucometer 157.91872 UNITS (()) 09/23/17 03:05 Random Glucose 228 mg/dL (74-106) H 09/22/17 16:40 Calcium 9.0 mg/dL (8.5-10.1) 09/22/17 16:40 Total Bilirubin 0.4 mg/dL (0.2-1.0) D 09/22/17 16:40 AST 26 U/L (15-37) D 09/22/17 16:40 ALT 44 U/L (12-78) D 09/22/17 16:40 Alkaline Phosphatase 161 U/L (45-117) H 09/22/17 16:40 Total Protein 7.8 g/dl (6.4-8.2) 09/22/17 16:40 Albumin 4.2 g/dl (3.4-5.0) D 09/22/17 16:40 Urine Test Results Urine Color Straw 09/22/17 19:10 Urine Appearance Clear 09/22/17 19:10 Urine pH 5.0 (5.0-8.0) 09/22/17 19:10 Ur Specific [place] 1.008 (1.001-1.035) 09/22/17 19:10 Urine Protein Negative (NEGATIVE) 09/22/17 19:10 Urine Glucose (UA) Negative (NEGATIVE) 09/22/17 19:10 Urine Ketones Negative (NEGATIVE) 09/22/17 19:10 Urine Blood Negative (NEGATIVE) 09/22/17 19:10 Urine Nitrite Negative (NEGATIVE) 09/22/17 19:10 Urine Bilirubin Negative (NEGATIVE) 09/22/17 19:10 Ur Leukocyte Esterase Negative (NEGATIVE) 09/22/17 19:10 baseline Cr ~1 Imaging - Results Cat Scan: Report Reviewed (omentum-containing periumbilical hernia, no bowel content, no obstruction, no free fluid), Image Reviewed Problem List - Problems (1) Incisional hernia of anterior abdominal wall without obstruction or gangrene Assessment/Plan: Admit to medicine Will need medical, pulmonary, ?cardiology optimization for OR Plan laparoscopic possible open/hybrid incarcerated incisional ventral hernia repair tomorrow if optimized IV hydration preop labs and recheck BMP today and in am FS with SSI ok to continue home meds, would not stop psych meds NPO after midnight with IV fluids to run pain meds prn - discussed with patient trying tramadol prn hold aspirin, avoid NSAIDs for now O2 and CPAP at night as at home GI/DVT prophylaxis Code(s): K43.2 - INCISIONAL HERNIA WITHOUT OBSTRUCTION OR GANGRENE (2) Morbid obesity with BMI of 40.0-44.9, adult Code(s): E66.01 - MORBID (SEVERE) OBESITY DUE TO EXCESS CALORIES; Z68.41 - BODY MASS INDEX (BMI) 40.0-44.9, ADULT (3) Diabetes mellitus type 2, insulin dependent Assessment/Plan: FS with SSI per primary team Code(s): E11.9 - TYPE 2 DIABETES MELLITUS WITHOUT COMPLICATIONS; Z79.4 - PIT RECORDER (CURRENT) USE OF INSULIN (4) COPD (chronic obstructive pulmonary disease) Assessment/Plan: O2/CPAP as at home pulmonary consult preop (Dr. Hemphill is pt's final application reviewer) Code(s): J44.9 - CHRONIC OBSTRUCTIVE PULMONARY DISEASE, UNSPECIFIED Qualifiers: COPD type: unspecified COPD Qualified Code(s): J44.9 - Chronic obstructive pulmonary disease, unspecified (5) Obstructive sleep apnea on CPAP Assessment/Plan: see above Code(s): G47.33 - OBSTRUCTIVE SLEEP APNEA (ADULT) (PEDIATRIC) (6) Schizoaffective disorder, bipolar type Assessment/Plan: continue home meds Code(s): F25.0 - SCHIZOAFFECTIVE DISORDER, BIPOLAR TYPE (7) Hypertension Assessment/Plan: continue home med consider cardiology optimization preop (Dr. Servando Pritchard is pt's savings counselor) Code(s): I10 - ESSENTIAL (PRIMARY) HYPERTENSION Qualifiers: Hypertension type: essential hypertension Qualified Code(s): I10 - Essential (primary) hypertension (8) Hyperlipidemia Code(s): E78.5 - HYPERLIPIDEMIA, UNSPECIFIED Qualifiers: Hyperlipidemia type: pure hypercholesterolemia Qualified Code(s): E78.00 - Pure hypercholesterolemia, unspecified; E78.0 - Pure hypercholesterolemia
[2017-09-23] MEDS ORDERED: morphine CARPU-JECT 2 MG/1 ML DISP.SYRIN IVPUSH PRN ×2 (12:54→12:56)
--- NOTE | 2017-09-23 12:57 | HP ---
Admitting History and Physical - Primary Care Physician PCP: Tej Chamberlain - Admission Chief Complaint: abdominal pain History of Present Illness: 61 yrs old female sent from - Dr Fernandez office for abdominal pain. Pt had severe abdominal pain around her umbilicus that started this morning when she strained during a bowel movement. No vomiting, diarrhea, admits to being constipated. No fever Seen by Surgeon today Possible incarcerated fat containing umbilical hernia. Pt had consulted with DR Hairston early this year about umbilical hernia repair but could not get surgery done as she was deemed high risk for the surgery. She has sleep apnea, obesity, HTN, Diabetes, right breast CA- s/p lumpectomy, uses CPAP and NC O2. History Source: Patient Limitations to Obtaining History: No Limitations - Past Medical History Cardiovascular: Yes: HTN, Hyperlipdemia Pulmonary: Yes: COPD, O2 Dependent, Sleep Apnea (on CPAP) Gastrointestinal: Yes: Pancreatitis (h/o pancreatitis), Other (umbilical hernia) Hepatobiliary: Yes: Cholelithiasis Renal/: Yes: Renal Calculi, Other (urge incontinence, enuresis) ...: No Heme/Onc: Yes: Cancer (right breast s/p chemo, XRT, lumpectomy) Psych: Yes: Anxiety, Bipolar (schizoaffective bipolar) Musculoskeletal: Yes: Osteoarthritis Endocrine: Yes: Diabetes Mellitus - Past Surgical History Past Surgical History: Yes: Breast Biopsy (left biopsy benign and right lumpectomy for cancer), Cholecystectomy (laparoscopic), Colonoscopy, Joint Replacement (left hip) - Smoking History Smoking history: Former smoker Have you smoked in the past 12 months: No Aproximately how many cigarettes per day: 20 If you are a former smoker, when did you quit?: March 2017 - Alcohol/Substance Use Hx Alcohol Use: No History of Substance Use: reports: None - Social History ADL: Independent (walks with cane) History of Recent Travel: No Home Medications - Allergies Allergies/Adverse Reactions: Allergies Allergy/AdvReac Type Severity Reaction Status Date / Time acetaminophen [From Tylenol] Allergy "VOMITS" Verified 09/22/17 16:30 almond oil Allergy "ITCHY" Verified 09/22/17 16:30 citalopram hydrobromide Allergy "STROKE Verified 09/22/17 16:30 [From Celexa] LIKE SYMPTOMS" divalproex sodium Allergy "PANCREATIT Verified 09/22/17 16:30 [From Depakote] IS" Iodinated Contrast- Oral and Allergy Verified 09/22/17 16:30 IV Dye [Iodinated Contrast Media - IV Dye] lamotrigine [From Lamictal] Allergy "FACE Verified 09/22/17 16:30 SWELLS" lithium [[place]] Allergy "SEIZURES,SWOLLEN Verified 09/22/17 16:30 ARMS/LEGS" meperidine HCl [From Demerol] Allergy "TURNS RED Verified 09/22/17 16:30 WHEN MIXED WITH NOVACAINE" shellfish derived Allergy "TURNED Verified 09/22/17 16:30 RED /ITCHY" sulfamethoxazole Allergy "COLLAPSED, Verified 09/22/17 16:30 [From Bactrim] HEART ISSUE" topiramate [From Topamax] Allergy TO Verified 09/22/17 16:30 POISONOUS LEVELS" trimethoprim [From Bactrim] Allergy "COLLAPSED,HEART Verified 09/22/17 16:30 ISSUE" - Home Medications Home Medications: Ambulatory Orders Buspirone HCl [Buspar] 15 mg PO TID 03/20/14 Lorazepam [Ativan] 2 mg PO HS PRN 03/20/14 Rosuvastatin Calcium [Crestor] 10 mg PO HS 03/20/14 FA/Mv,Ca,Iron,Min/Lycopene/Lut [Centrum Tablet] 1 each PO DAILY 07/03/14 Anastrozole [Arimidex -] 1 mg PO DAILY #0 12/06/16 Aspirin [ASA -] 81 mg PO DAILY #0 12/06/16 Gabapentin [Neurontin -] 100 mg PO Q8H #0 12/06/16 Insulin (Levemir) [Levemir Flexpen -] 10 units SQ HS #0 12/06/16 Insulin (Novolog) [Novolog Flexpen -] 0 units SQ ASDIR #0 12/06/16 Levothyroxine [Synthroid -] 300 mcg PO DAILY #0 12/06/16 Polyethylene Glycol 3350 [Miralax 119 gm Btl -] 17 gm PO DAILY #0 12/06/16 Quetiapine Fumarate [Seroquel -] 800 mg PO HS #0 12/06/16 Quinapril HCl [Accupril -] 10 mg PO DAILY #0 12/06/16 Ziprasidone HCl [Geodon] 40 mg PO BID #0 12/06/16 Family Disease History - Family Disease History Other Family History: not pertinent Physical Examination Vital Signs: Vital Signs Temperature 97.6 F 09/22/17 16:30 Pulse Rate 84 09/23/17 11:48 Respiratory Rate 20 09/23/17 11:48 Blood Pressure 163/87 09/23/17 11:48 O2 Sat by Pulse Oximetry (%) 96 09/23/17 11:48 Constitutional: Yes: No Distress, Anxious Cardiovascular: Yes: Regular Rate and Rhythm Respiratory: Yes: Diminished Gastrointestinal: Yes: Normal Bowel Sounds, Soft, Abdomen, Obese, Hernia ( umbilical hernia-- tender, not reducible) Extremities: Yes: Other (dermatitis on palms and dorsum of both feet) Edema: No Neurological: Yes: Alert, Oriented Psychiatric: Yes: Alert, Oriented Labs: CBC, BMP 09/22/17 16:40 09/22/17 16:40 Imaging - Results Chest X-ray: Image Reviewed (clear) Cat Scan: Report Reviewed EKG: Image Reviewed (NSR , no ST changes) Problem List - Problems (1) Incarcerated umbilical hernia Code(s): K42.0 - UMBILICAL HERNIA WITH OBSTRUCTION, WITHOUT GANGRENE (2) Abdominal pain Code(s): R10.9 - UNSPECIFIED ABDOMINAL PAIN Qualifiers: Abdominal location: periumbilical Qualified Code(s): R10.33 - Periumbilical pain (3) Abdominal wall hernia Code(s): K43.9 - VENTRAL HERNIA WITHOUT OBSTRUCTION OR GANGRENE (4) Schizoaffective disorder, bipolar type Code(s): F25.0 - SCHIZOAFFECTIVE DISORDER, BIPOLAR TYPE (5) COPD (chronic obstructive pulmonary disease) Code(s): J44.9 - CHRONIC OBSTRUCTIVE PULMONARY DISEASE, UNSPECIFIED Qualifiers: COPD type: unspecified COPD Qualified Code(s): J44.9 - Chronic obstructive pulmonary disease, unspecified (6) Obstructive sleep apnea on CPAP Code(s): G47.33 - OBSTRUCTIVE SLEEP APNEA (ADULT) (PEDIATRIC) (7) Schizophrenia Code(s): F20.9 - SCHIZOPHRENIA, UNSPECIFIED Qualifiers: Schizophrenia type: unspecified Qualified Code(s): F20.9 - Schizophrenia, unspecified Assessment/Plan PLAN Surgical eval noted Keep NPO, pt may take her oral meds with sips of water Check BGM-- use sliding scale Pain meds-- Morphine IV as needed IV fluids No antibiotics now check Echo CPAP as per home settings Pulmonary and Cardiology eval for clearance as she has risk factors for surgery continue psych meds DVT prophylaxis-- SCD, Lovenox sc Hold Aspirin
[2017-09-23] MEDS ORDERED: DEXTROSE 5%-0.45% SALINE 1,000 ML IV SCH (13:00)
[2017-09-23] MEDS ORDERED: LORazepam 1 MG TABLET PO PRN (13:06)
[2017-09-23] MEDS ORDERED: LORazepam 2 MG/ML SDV VIAL IVPUSH PRN (13:08)
[2017-09-23] MEDS ORDERED: ONDANSETRON 4 MG/2 ML VIAL IVPB PRN (13:09)
--- NOTE | 2017-09-23 13:54 | CON.CARD ---
Consult Consult Specialty:: Cardiology Referred by:: Cat Cha MD Reason for Consultation:: Pre-operative cardiovascular evaluation - History of Present Illness Chief Complaint: Periumbilical pain History of Present Illness: 61-year-old female with history of insulin-dependent diabetes, COPD, hypertension, OSAS on cpap, history of breast CA status post chemotherapy currently on maintenance oral therapy presents with periumbilical and lower abdominal pain referable to tender incisional ventral hernia without nausea or emesis planned for repair. Regarding cardiovascular sxs, she denies chest pain, dyspnea on exertion worse than baseline, near or true syncope, palpitations, orthopnea, PND or LE edema. - History Source History Provided By: Patient Limitations to Obtaining History: No Limitations - Past Medical History Cardio/Vascular: Yes: HTN, Hyperlipdemia Pulmonary: Yes: COPD, O2 Dependent, Sleep Apnea (on CPAP) Gastrointestinal: Yes: Pancreatitis (h/o pancreatitis), Other (umbilical hernia) Hepatobiliary: Yes: Cholelithiasis Renal/: Yes: Renal Calculi, Other (urge incontinence, enuresis) ...: No Psych: Yes: Anxiety, Bipolar (schizoaffective bipolar) Musculoskeletal: Yes: Osteoarthritis Endocrine: Yes: Diabetes Mellitus Additional Medical History: morbid obesity - Past Surgical History Past Surgical History: Yes: Breast Biopsy (left biopsy benign and right lumpectomy for cancer), Cholecystectomy (laparoscopic), Colonoscopy, Joint Replacement (left hip) - Alcohol/Substance Use Hx Alcohol Use: No History of Substance Use: reports: None - Smoking History Smoking history: Former smoker Have you smoked in the past 12 months: No Aproximately how many cigarettes per day: 20 If you are a former smoker, when did you quit?: March 2017 - Social History ADL: Independent (walks with cane) History of Recent Travel: No Home Medications - Allergies Allergies/Adverse Reactions: Allergies Allergy/AdvReac Type Severity Reaction Status Date / Time acetaminophen [From Tylenol] Allergy "VOMITS" Verified 09/22/17 16:30 almond oil Allergy "ITCHY" Verified 09/22/17 16:30 citalopram hydrobromide Allergy "STROKE Verified 09/22/17 16:30 [From Celexa] LIKE SYMPTOMS" divalproex sodium Allergy "PANCREATIT Verified 09/22/17 16:30 [From Depakote] IS" Iodinated Contrast- Oral and Allergy Verified 09/22/17 16:30 IV Dye [Iodinated Contrast Media - IV Dye] lamotrigine [From Lamictal] Allergy "FACE Verified 09/22/17 16:30 SWELLS" lithium [[place]] Allergy "SEIZURES,SWOLLEN Verified 09/22/17 16:30 ARMS/LEGS" meperidine HCl [From Demerol] Allergy "TURNS RED Verified 09/22/17 16:30 WHEN MIXED WITH NOVACAINE" shellfish derived Allergy "TURNED Verified 09/22/17 16:30 RED /ITCHY" sulfamethoxazole Allergy "COLLAPSED, Verified 09/22/17 16:30 [From Bactrim] HEART ISSUE" topiramate [From Topamax] Allergy TO Verified 09/22/17 16:30 POISONOUS LEVELS" trimethoprim [From Bactrim] Allergy "COLLAPSED,HEART Verified 09/22/17 16:30 ISSUE" - Home Medications Home Medications: Ambulatory Orders Buspirone HCl [Buspar] 15 mg PO TID 03/20/14 Lorazepam [Ativan] 2 mg PO HS PRN 03/20/14 Rosuvastatin Calcium [Crestor] 10 mg PO HS 03/20/14 FA/Mv,Ca,Iron,Min/Lycopene/Lut [Centrum Tablet] 1 each PO DAILY 07/03/14 Anastrozole [Arimidex -] 1 mg PO DAILY #0 12/06/16 Aspirin [ASA -] 81 mg PO DAILY #0 12/06/16 Gabapentin [Neurontin -] 100 mg PO Q8H #0 12/06/16 Insulin (Levemir) [Levemir Flexpen -] 10 units SQ HS #0 12/06/16 Insulin (Novolog) [Novolog Flexpen -] 0 units SQ ASDIR #0 12/06/16 Levothyroxine [Synthroid -] 300 mcg PO DAILY #0 12/06/16 Polyethylene Glycol 3350 [Miralax 119 gm Btl -] 17 gm PO DAILY #0 12/06/16 Quetiapine Fumarate [Seroquel -] 800 mg PO HS #0 12/06/16 Quinapril HCl [Accupril -] 10 mg PO DAILY #0 12/06/16 Ziprasidone HCl [Geodon] 40 mg PO BID #0 12/06/16 Family Disease History - Family Disease History Other Family History: not pertinent - Risk Factors Known Risk Factors: Yes: Gender, Hypercholesterolemia, Hypertension Vital Signs: Vital Signs Temperature 98.0 F 09/23/17 11:50 Pulse Rate 77 09/23/17 11:50 Respiratory Rate 20 09/23/17 11:50 Blood Pressure 145/70 09/23/17 11:50 O2 Sat by Pulse Oximetry (%) 96 09/23/17 11:48 Constitutional: Yes: No Distress, Calm Neck: Yes: Supple Respiratory: Yes: Regular, Diminished, On Nasal O2 Gastrointestinal: Yes: Normal Bowel Sounds, Soft, Abdomen, Obese, Hernia ( Umbilical), Tenderness, Other Cardiovascular: Yes: Regular Rate and Rhythm JVD: No Carotid Bruit: No Heart Sounds: Yes: S1, S2 Edema: No - Other Data Labs, Other Data: CBC, BMP 09/22/17 16:40 09/22/17 16:40 INR, PTT INR 0.95 (0.82-1.09) 09/22/17 16:40 NSR @ 83 IRBBB Ejection Fraction %: LVEF > or = 40 % Problem List - Problems (1) Abdominal wall hernia Code(s): K43.9 - VENTRAL HERNIA WITHOUT OBSTRUCTION OR GANGRENE (2) Diabetes mellitus type 2, insulin dependent Code(s): E11.9 - TYPE 2 DIABETES MELLITUS WITHOUT COMPLICATIONS; Z79.4 - [facility] (CURRENT) USE OF INSULIN (3) Incisional hernia of anterior abdominal wall without obstruction or gangrene Code(s): K43.2 - INCISIONAL HERNIA WITHOUT OBSTRUCTION OR GANGRENE (4) Morbid obesity with BMI of 40.0-44.9, adult Code(s): E66.01 - MORBID (SEVERE) OBESITY DUE TO EXCESS CALORIES; Z68.41 - BODY MASS INDEX (BMI) 40.0-44.9, ADULT (5) Schizoaffective disorder, bipolar type Code(s): F25.0 - SCHIZOAFFECTIVE DISORDER, BIPOLAR TYPE (6) Breast CA Code(s): C50.919 - MALIGNANT NEOPLASM OF UNSP SITE OF UNSPECIFIED FEMALE BREAST Qualifiers: Breast location: unspecified site of breast (7) COPD (chronic obstructive pulmonary disease) Code(s): J44.9 - CHRONIC OBSTRUCTIVE PULMONARY DISEASE, UNSPECIFIED Qualifiers: COPD type: unspecified COPD Qualified Code(s): J44.9 - Chronic obstructive pulmonary disease, unspecified (8) Hyperlipidemia Code(s): E78.5 - HYPERLIPIDEMIA, UNSPECIFIED Qualifiers: Hyperlipidemia type: pure hypercholesterolemia Qualified Code(s): E78.00 - Pure hypercholesterolemia, unspecified; E78.0 - Pure hypercholesterolemia (9) Hypertension Code(s): I10 - ESSENTIAL (PRIMARY) HYPERTENSION Qualifiers: Hypertension type: essential hypertension Qualified Code(s): I10 - Essential (primary) hypertension (10) Hypothyroidism Code(s): E03.9 - HYPOTHYROIDISM, UNSPECIFIED Qualifiers: Hypothyroidism type: unspecified Qualified Code(s): E03.9 - Hypothyroidism , unspecified (11) Obstructive sleep apnea on CPAP Code(s): G47.33 - OBSTRUCTIVE SLEEP APNEA (ADULT) (PEDIATRIC) (12) Schizophrenia Code(s): F20.9 - SCHIZOPHRENIA, UNSPECIFIED Qualifiers: Schizophrenia type: unspecified Qualified Code(s): F20.9 - Schizophrenia, unspecified (13) Pre-operative cardiovascular examination Code(s): Z01.810 - ENCOUNTER FOR PREPROCEDURAL CARDIOVASCULAR EXAMINATION Assessment/Plan Cat Scan: Report Reviewed (omentum-containing periumbilical hernia, no bowel content, no obstruction, no free fluid), Image Reviewed 12/03/2016 Echo: Mild cLVH, normal LV fxn, tr MR 1. Pre-operative cardiovascular evaluation 2. Symptomatic incisional ventral hernia planned for repair 2. HTN/HCVD 3. Hypothyroidism 4. Hyperlipidemia 5. Schizophrenia 6. History of breast CA 7. OSAS on cpap 8. Type 2 DM 9. COPD PLAN: 1. Given absence of sxs of acute coronary syndrome, decompensated CHF or malignant arrhythmia, may proceed with ventral hernia repair from CV-standpoint without further testing 2. F/u echocardiogram previously ordered 3. Hold ASA 81 mg QD pre-op and resume once post-op hemostasis achieved, continue Accupril 10 mg QD and Crestor 10 mg QD. 4. Continue cpap nightly, O2 as needed, DVT and GI prophylaxis 5. Thank you for consultative opportunity
[2017-09-23] MEDS ORDERED: PT OWN MED DRAWER 7, Y5N ONE ×2 (15:17→21:30)
[2017-09-23] MEDS: PANTOPRAZOLE SODIUM 40 MG VIAL IVPUSH SCH (15:22)
[2017-09-23] MEDS: busPIRone HCL 10 MG TABLET (FP) PO SCH ×2 (15:23→22:08)
[2017-09-23] MEDS: ZIPRASIDONE 40 MG CAPSULE (FP) PO SCH ×2 (15:24→22:08)
[2017-09-23] MEDS: LEVOTHYROXINE NA 150 MCG TABLET PO SCH (15:24)
[2017-09-23] MEDS: INSULIN SLIDING SCALE (NOVOLOG) 1 VIAL SQ SCH (17:14)
[2017-09-23] MEDS ORDERED: QUEtiapine FUMARATE 200 MG TABLET PO SCH (22:00)
[2017-09-23] MEDS: DEXTROSE 5%-0.45% SALINE 1,000 ML IV SCH (22:07)
[2017-09-24] MEDS: LEVOTHYROXINE NA 150 MCG TABLET PO SCH (06:30)
[2017-09-24] MEDS: busPIRone HCL 10 MG TABLET (FP) PO SCH (06:30)
[2017-09-24] MEDS: INSULIN SLIDING SCALE (NOVOLOG) 1 VIAL SQ SCH ×2 (06:32→12:28)
[2017-09-24] MEDS: DEXTROSE 5%-0.45% SALINE 1,000 ML IV SCH (07:10)
--- NOTE | 2017-09-24 10:02 | CON.PULM ---
Consult Consult Specialty:: PULM/CCM Referred by:: CHRISSY Reason for Consultation:: PRE OP CLEARANCE - History of Present Illness Chief Complaint: Abdominal pain History of Present Illness: 61 Fm, well known to me from the outpatient setting. O2 dependent COPD due to previous smoking, Severe OSAS (RDI: 87.8 with moderate desaturation to 78%) on CPAP At 11 cm H2O, combined obstruction and restriction on PFTs, insulin- dependent diabetes, hypertension, history of breast CA status post chemotherapy currently on maintenance oral therapy. Admitted due to periumbilical and lower abdominal pain due to her ventral hernia. Called for pre-op clearance. No recent acute exacerbations or decompensation of her COPD. Patient is highly compliant and tolerates her CPAP well. - History Source History Provided By: Patient Limitations to Obtaining History: No Limitations - Past Medical History Cardio/Vascular: Yes: HTN, Hyperlipdemia Pulmonary: Yes: COPD, O2 Dependent, Sleep Apnea Gastrointestinal: Yes: Pancreatitis Hepatobiliary: Yes: Cholelithiasis Renal/: Yes: Renal Calculi, Other (urge incontinence, enuresis) ...: No Psych: Yes: Anxiety, Bipolar (schizoaffective bipolar) Musculoskeletal: Yes: Osteoarthritis Endocrine: Yes: Diabetes Mellitus, Hypothyroidism Additional Medical History: morbid obesity - Past Surgical History Past Surgical History: Yes: Breast Biopsy (left biopsy benign and right lumpectomy for cancer), Cholecystectomy (laparoscopic), Colonoscopy, Joint Replacement (left hip) - Alcohol/Substance Use Hx Alcohol Use: No History of Substance Use: reports: None - Smoking History Smoking history: Former smoker Have you smoked in the past 12 months: No Aproximately how many cigarettes per day: 20 If you are a former smoker, when did you quit?: March 2017 - Social History ADL: Independent (walks with cane) History of Recent Travel: No Home Medications - Allergies Allergies/Adverse Reactions: Allergies Allergy/AdvReac Type Severity Reaction Status Date / Time acetaminophen [From Tylenol] Allergy "VOMITS" Verified 09/22/17 16:30 almond oil Allergy "ITCHY" Verified 09/22/17 16:30 citalopram hydrobromide Allergy "STROKE Verified 09/22/17 16:30 [From Celexa] LIKE SYMPTOMS" divalproex sodium Allergy "PANCREATIT Verified 09/22/17 16:30 [From Depakote] IS" Iodinated Contrast- Oral and Allergy Verified 09/22/17 16:30 IV Dye [Iodinated Contrast Media - IV Dye] lamotrigine [From Lamictal] Allergy "FACE Verified 09/22/17 16:30 SWELLS" lithium [[place]] Allergy "SEIZURES,SWOLLEN Verified 09/22/17 16:30 ARMS/LEGS" meperidine HCl [From Demerol] Allergy "TURNS RED Verified 09/22/17 16:30 WHEN MIXED WITH NOVACAINE" shellfish derived Allergy "TURNED Verified 09/22/17 16:30 RED /ITCHY" sulfamethoxazole Allergy "COLLAPSED, Verified 09/22/17 16:30 [From Bactrim] HEART ISSUE" topiramate [From Topamax] Allergy TO Verified 09/22/17 16:30 POISONOUS LEVELS" trimethoprim [From Bactrim] Allergy "COLLAPSED,HEART Verified 09/22/17 16:30 ISSUE" - Home Medications Home Medications: Ambulatory Orders Buspirone HCl [Buspar] 15 mg PO TID 03/20/14 Lorazepam [Ativan] 2 mg PO HS PRN 03/20/14 Rosuvastatin Calcium [Crestor] 10 mg PO HS 03/20/14 FA/Mv,Ca,Iron,Min/Lycopene/Lut [Centrum Tablet] 1 each PO DAILY 07/03/14 Anastrozole [Arimidex -] 1 mg PO DAILY #0 12/06/16 Aspirin [ASA -] 81 mg PO DAILY #0 12/06/16 Gabapentin [Neurontin -] 100 mg PO Q8H #0 12/06/16 Insulin (Levemir) [Levemir Flexpen -] 10 units SQ HS #0 12/06/16 Insulin (Novolog) [Novolog Flexpen -] 0 units SQ ASDIR #0 12/06/16 Levothyroxine [Synthroid -] 300 mcg PO DAILY #0 12/06/16 Polyethylene Glycol 3350 [Miralax 119 gm Btl -] 17 gm PO DAILY #0 12/06/16 Quetiapine Fumarate [Seroquel -] 800 mg PO HS #0 12/06/16 Quinapril HCl [Accupril -] 10 mg PO DAILY #0 12/06/16 Ziprasidone HCl [Geodon] 40 mg PO BID #0 12/06/16 Family Disease History - Family Disease History Other Family History: not pertinent Review of Systems - Review of Systems Constitutional: reports: Loss of Appetite, Malaise, Weakness. denies: Chills, Diaphoresis, Night Sweats, Unintentional Wgt. Loss Eyes: reports: No Symptoms HENT: reports: No Symptoms, Ocular Prosthesis Cardiovascular: reports: No Symptoms Respiratory: reports: Snoring. denies: Cough, Hemoptysis, SOB, SOB on Exertion , Wheezing Gastrointestinal: reports: Abdominal Pain, Nausea. denies: Diarrhea, Melena, Rectal Bleeding, Vomiting, Vomiting Blood Genitourinary: reports: No Symptoms Breasts: reports: No Symptoms Reported Musculoskeletal: reports: Back Pain Integumentary: reports: No Symptoms Neurological: reports: No Symptoms Endocrine: reports: No Symptoms Hematology/Lymphatic: reports: No Symptoms Psychiatric: reports: No Symptoms Physical Exam Vital Sings: Vital Signs Temperature 97.8 F 09/24/17 06:00 Pulse Rate 80 09/24/17 06:00 Respiratory Rate 20 09/24/17 06:00 Blood Pressure 137/84 09/24/17 06:00 O2 Sat by Pulse Oximetry (%) 95 09/23/17 22:16 Constitutional: Yes: No Distress, Obese Eyes: Yes: Conjunctiva Clear, EOM Intact HENT: Yes: Atraumatic, Normocephalic Neck: Yes: Supple, Trachea Midline Cardiovascular: Yes: Regular Rate and Rhythm Respiratory: Yes: CTA Bilaterally, On Nasal O2. No: Accessory Muscle Use, Diminished, Rales, Rhonchi, Stridor, Tachypnea, Wheezes ...Inspection: Yes: WNL ...Clubbing: No Gastrointestinal: Yes: Normal Bowel Sounds, Soft, Abdomen, Obese, Hernia Musculoskeletal: Yes: WNL Extremities: Yes: WNL Edema: No Peripheral Pulses WNL: Yes Integumentary: Yes: WNL Neurological: Yes: WNL, Alert, Oriented ...Motor Strength: WNL Psychiatric: Yes: WNL, Alert, Oriented Labs: CBC, BMP 09/22/17 16:40 09/22/17 16:40 Imaging - Results Chest X-ray: Report Reviewed, Image Reviewed Problem List - Problems (1) Abdominal pain Code(s): R10.9 - UNSPECIFIED ABDOMINAL PAIN Qualifiers: Abdominal location: periumbilical Qualified Code(s): R10.33 - Periumbilical pain (2) Abdominal wall hernia Code(s): K43.9 - VENTRAL HERNIA WITHOUT OBSTRUCTION OR GANGRENE (3) Diabetes mellitus type 2, insulin dependent Code(s): E11.9 - TYPE 2 DIABETES MELLITUS WITHOUT COMPLICATIONS; Z79.4 - [facility] (CURRENT) USE OF INSULIN (4) Morbid obesity with BMI of 40.0-44.9, adult Code(s): E66.01 - MORBID (SEVERE) OBESITY DUE TO EXCESS CALORIES; Z68.41 - BODY MASS INDEX (BMI) 40.0-44.9, ADULT (5) Schizoaffective disorder, bipolar type Code(s): F25.0 - SCHIZOAFFECTIVE DISORDER, BIPOLAR TYPE (6) Breast CA Code(s): C50.919 - MALIGNANT NEOPLASM OF UNSP SITE OF UNSPECIFIED FEMALE BREAST Qualifiers: Breast location: unspecified site of breast (7) COPD (chronic obstructive pulmonary disease) Code(s): J44.9 - CHRONIC OBSTRUCTIVE PULMONARY DISEASE, UNSPECIFIED Qualifiers: COPD type: unspecified COPD Qualified Code(s): J44.9 - Chronic obstructive pulmonary disease, unspecified (8) Hyperlipidemia Code(s): E78.5 - HYPERLIPIDEMIA, UNSPECIFIED Qualifiers: Hyperlipidemia type: pure hypercholesterolemia Qualified Code(s): E78.00 - Pure hypercholesterolemia, unspecified; E78.0 - Pure hypercholesterolemia (9) Hypertension Code(s): I10 - ESSENTIAL (PRIMARY) HYPERTENSION Qualifiers: Hypertension type: essential hypertension Qualified Code(s): I10 - Essential (primary) hypertension (10) Hypothyroidism Code(s): E03.9 - HYPOTHYROIDISM, UNSPECIFIED Qualifiers: Hypothyroidism type: unspecified Qualified Code(s): E03.9 - Hypothyroidism , unspecified (11) Obstructive sleep apnea on CPAP Code(s): G47.33 - OBSTRUCTIVE SLEEP APNEA (ADULT) (PEDIATRIC) (12) Schizophrenia Code(s): F20.9 - SCHIZOPHRENIA, UNSPECIFIED Qualifiers: Schizophrenia type: unspecified Qualified Code(s): F20.9 - Schizophrenia, unspecified Assessment/Plan The patient is at an increased but reasonable risk for OR/anesthesia due to significant Pulmonary history. CPAP @ 11 cm H2O. No need for preop steroids as she is has never been steroid dependent. BD TX PRN Pain control VTE prophylaxis postop Pulmonary toilet / Incentive Spirometry postop Will arrange for postop ICU monitoring Will follow Thank you. Dr Hemphill
--- NOTE | 2017-09-24 10:16 | PN ---
Progress Note, Physician Chief Complaint: Has pain in abdomen No vomiting anxious - Current Medication List Current Medications: Active Medications Buspirone HCl (Buspar -) 15 mg PO TID [facility] Last Admin: 09/24/17 06:30 Dose: 15 mg Dextrose/Sodium Chloride (D5-1/2ns -) 1,000 mls @ 125 mls/hr IV ASDIR [facility] Last Admin: 09/24/17 07:10 Dose: 125 mls/hr Insulin Aspart (Novolog Vial Sliding Scale -) 1 vial SQ TIDAC [facility] PRN Reason: Protocol Last Admin: 09/24/17 06:32 Dose: Not Given Levothyroxine Sodium (Synthroid -) 300 mcg PO ACBK [facility] Last Admin: 09/24/17 06:30 Dose: 300 mcg Lorazepam (Ativan -) 2 mg PO HS PRN PRN Reason: ANXIETY Lorazepam (Ativan Injection -) 1 mg IVPUSH TID PRN PRN Reason: ANXIETY Morphine Sulfate (Morphine Injection -) 2 mg IVPUSH Q4H PRN PRN Reason: PAIN Ondansetron HCl (Zofran Injection) 8 mg IVPB Q8H PRN PRN Reason: NAUSEA Pantoprazole Sodium (Protonix Iv) 40 mg IVPUSH DAILY [facility] Last Admin: 09/23/17 15:22 Dose: 40 mg Quetiapine Fumarate (Seroquel -) 800 mg PO HS [facility] Last Admin: 09/23/17 22:08 Dose: 800 mg Ziprasidone (Geodon -) 40 mg PO BID [facility] Last Admin: 09/23/17 22:08 Dose: 40 mg - Objective Vital Signs: Vital Signs Temperature 97.8 F 09/24/17 06:00 Pulse Rate 80 09/24/17 06:00 Respiratory Rate 20 09/24/17 06:00 Blood Pressure 137/84 09/24/17 06:00 O2 Sat by Pulse Oximetry (%) 95 09/23/17 22:16 Constitutional: Yes: No Distress, Anxious Cardiovascular: Yes: Regular Rate and Rhythm Respiratory: Yes: CTA Bilaterally Gastrointestinal: Yes: Normal Bowel Sounds, Soft, Abdomen, Obese, Tenderness ( umbilical hernia). No: Distention Edema: No Labs: CBC, BMP 09/22/17 16:40 09/22/17 16:40 INR, PTT INR 0.95 (0.82-1.09) 09/22/17 16:40 Problem List - Problems (1) Incarcerated umbilical hernia Code(s): K42.0 - UMBILICAL HERNIA WITH OBSTRUCTION, WITHOUT GANGRENE (2) Abdominal pain Code(s): R10.9 - UNSPECIFIED ABDOMINAL PAIN Qualifiers: Abdominal location: periumbilical Qualified Code(s): R10.33 - Periumbilical pain (3) Abdominal wall hernia Code(s): K43.9 - VENTRAL HERNIA WITHOUT OBSTRUCTION OR GANGRENE (4) Schizoaffective disorder, bipolar type Code(s): F25.0 - SCHIZOAFFECTIVE DISORDER, BIPOLAR TYPE (5) COPD (chronic obstructive pulmonary disease) Code(s): J44.9 - CHRONIC OBSTRUCTIVE PULMONARY DISEASE, UNSPECIFIED Qualifiers: COPD type: unspecified COPD Qualified Code(s): J44.9 - Chronic obstructive pulmonary disease, unspecified (6) Obstructive sleep apnea on CPAP Code(s): G47.33 - OBSTRUCTIVE SLEEP APNEA (ADULT) (PEDIATRIC) (7) Schizophrenia Code(s): F20.9 - SCHIZOPHRENIA, UNSPECIFIED Qualifiers: Schizophrenia type: unspecified Qualified Code(s): F20.9 - Schizophrenia, unspecified Assessment/Plan PLAN Pt is NPO IV fluids Cardiology and Pulmonary eval noted Echo normal EF continue with Ativan IV PRN for anxiety and Morphine IV for pain patient is medically cleared for surgery-- she is intermediate risk for surgery due to sleep apnea and obesity -- noted that she will need ICU monitoring post op DVT prophylaxis-- SCD, Lovenox sc Hold Aspirin
[2017-09-24] MEDS: ZIPRASIDONE 40 MG CAPSULE (FP) PO SCH ×2 (10:31→22:08)
[2017-09-24] MEDS: PANTOPRAZOLE SODIUM 40 MG VIAL IVPUSH SCH (10:50)
[2017-09-24 10:51] LABS: BASOPHIL 1.1 % (0-2.0); EOSINOPHIL 6.5 % (0-4.5); MCH 28.9 pg (25.7-33.7); MCHC 32.6 g/dl (32.0-36.0); MEAN CELL VOLUME 88.7 fl (80-96); MEAN PLT VOLUME 9.2 fl (7.5-11.1); NEUTROPHILS 61.7 % (42.8-82.8); PLATELET COUNT 167 K/MM3 (134-434); RDW 14.4 % (11.6-15.6); WHITE BLOOD COUNT 6.8 K/mm3 (4.0-10.0)
--- NOTE | 2017-09-24 11:21 | PN ---
Progress Note, Physician Chief Complaint: Events noted Not in distress History of Present Illness: Patient was seen and examined. Awake and alert. Chart was reviewed Denies chest pain, SOB or palpitations. - Current Medication List Current Medications: Active Medications Buspirone HCl (Buspar -) 15 mg PO TID [facility] Last Admin: 09/24/17 06:30 Dose: 15 mg Dextrose/Sodium Chloride (D5-1/2ns -) 1,000 mls @ 125 mls/hr IV ASDIR [facility] Last Admin: 09/24/17 07:10 Dose: 125 mls/hr Insulin Aspart (Novolog Vial Sliding Scale -) 1 vial SQ TIDAC [facility] PRN Reason: Protocol Last Admin: 09/24/17 06:32 Dose: Not Given Levothyroxine Sodium (Synthroid -) 300 mcg PO ACBK [facility] Last Admin: 09/24/17 06:30 Dose: 300 mcg Lorazepam (Ativan -) 2 mg PO HS PRN PRN Reason: ANXIETY Lorazepam (Ativan Injection -) 1 mg IVPUSH TID PRN PRN Reason: ANXIETY Morphine Sulfate (Morphine Injection -) 2 mg IVPUSH Q4H PRN PRN Reason: PAIN Ondansetron HCl (Zofran Injection) 8 mg IVPB Q8H PRN PRN Reason: NAUSEA Pantoprazole Sodium (Protonix Iv) 40 mg IVPUSH DAILY [facility] Last Admin: 09/24/17 10:50 Dose: 40 mg Quetiapine Fumarate (Seroquel -) 800 mg PO HS [facility] Last Admin: 09/23/17 22:08 Dose: 800 mg Ziprasidone (Geodon -) 40 mg PO BID [facility] Last Admin: 09/24/17 10:31 Dose: Not Given - Objective Vital Signs: Vital Signs Temperature 97.8 F 09/24/17 06:00 Pulse Rate 83 09/24/17 10:00 Respiratory Rate 20 09/24/17 06:00 Blood Pressure 137/84 09/24/17 06:00 O2 Sat by Pulse Oximetry (%) 95 09/24/17 10:00 Neck: Yes: Supple Cardiovascular: Yes: Regular Rate and Rhythm, S1, S2. No: Murmur Respiratory: Yes: CTA Bilaterally Gastrointestinal: Yes: Normal Bowel Sounds, Soft, Abdomen, Obese, Other ( Umbilical hernia). No: Tenderness Edema: No Labs: CBC, BMP 09/24/17 09:30 INR, PTT INR 0.95 (0.82-1.09) 09/22/17 16:40 Problem List - Problems (1) Abdominal wall hernia Code(s): K43.9 - VENTRAL HERNIA WITHOUT OBSTRUCTION OR GANGRENE (2) Diabetes mellitus type 2, insulin dependent Code(s): E11.9 - TYPE 2 DIABETES MELLITUS WITHOUT COMPLICATIONS; Z79.4 - [facility] (CURRENT) USE OF INSULIN (3) Morbid obesity with BMI of 40.0-44.9, adult Code(s): E66.01 - MORBID (SEVERE) OBESITY DUE TO EXCESS CALORIES; Z68.41 - BODY MASS INDEX (BMI) 40.0-44.9, ADULT (4) Pre-operative cardiovascular examination Code(s): Z01.810 - ENCOUNTER FOR PREPROCEDURAL CARDIOVASCULAR EXAMINATION (5) Schizoaffective disorder, bipolar type Code(s): F25.0 - SCHIZOAFFECTIVE DISORDER, BIPOLAR TYPE (6) Breast CA Code(s): C50.919 - MALIGNANT NEOPLASM OF UNSP SITE OF UNSPECIFIED FEMALE BREAST Qualifiers: Breast location: unspecified site of breast (7) COPD (chronic obstructive pulmonary disease) Code(s): J44.9 - CHRONIC OBSTRUCTIVE PULMONARY DISEASE, UNSPECIFIED Qualifiers: COPD type: unspecified COPD Qualified Code(s): J44.9 - Chronic obstructive pulmonary disease, unspecified (8) Hyperlipidemia Code(s): E78.5 - HYPERLIPIDEMIA, UNSPECIFIED Qualifiers: Hyperlipidemia type: pure hypercholesterolemia Qualified Code(s): E78.00 - Pure hypercholesterolemia, unspecified; E78.0 - Pure hypercholesterolemia (9) Hypertension Code(s): I10 - ESSENTIAL (PRIMARY) HYPERTENSION Qualifiers: Hypertension type: essential hypertension Qualified Code(s): I10 - Essential (primary) hypertension (10) Hypothyroidism Code(s): E03.9 - HYPOTHYROIDISM, UNSPECIFIED Qualifiers: Hypothyroidism type: unspecified Qualified Code(s): E03.9 - Hypothyroidism , unspecified (11) Obstructive sleep apnea on CPAP Code(s): G47.33 - OBSTRUCTIVE SLEEP APNEA (ADULT) (PEDIATRIC) Assessment/Plan 1. Pre-operative cardiovascular evaluation 2. Symptomatic incisional ventral hernia planned for repair 2. HTN/HCVD 3. Hypothyroidism 4. Hyperlipidemia 5. Schizophrenia 6. History of breast CA 7. OSAS on CPAP 8. Type 2 DM 9. COPD PLAN: 1. There is no absolute contraindication in proceeding with surgery in view of absence of ischemic symptoms, decompensated congestive heart failure or malignant arrhythmias. 2. Transthoracic echocardiography report noted 3. Hold ASA 81 mg QD pre-op and resume once post-op hemostasis achieved, continue Accupril 10 mg QD and Crestor 10 mg QD. 4. Continue CPAP, O2 as needed, DVT and GI prophylaxis Further plans are to follow Servando Pritchard MD
[2017-09-24 11:22] LABS: ALBUMIN 3.4 g/dl (3.4-5.0); ANION GAP 9 (8-16); CALCIUM 8.8 mg/dL (8.5-10.1); CO2 23 mmol/L (21-32); GLUCOSE,RANDOM 183 mg/dL (74-106)
[2017-09-24 11:25] LABS: ALK PHOS 124 U/L (45-117); BILIRUBIN,TOTAL 0.4 mg/dL (0.2-1.0); SGOT/AST 27 U/L (15-37); SGPT/ALT 37 U/L (12-78); TOT PROT 6.4 g/dl (6.4-8.2)
--- NOTE | 2017-09-24 11:54 | PN ---
Progress Note, Physician Chief Complaint: periumbilical and lower abdominal pain History of Present Illness: Pt seen and examined in bed. No overnight events. Feeling well, hungry. Cardiology and pulmonary consultations noted and appreciated. Pt still with periumbilical and abdominal pain, not worse. NPO since midnight, IVF on board. cbc ok, cmp pending - Current Medication List Current Medications: Active Medications Buspirone HCl (Buspar -) 15 mg PO TID [facility] Last Admin: 09/24/17 06:30 Dose: 15 mg Dextrose/Sodium Chloride (D5-1/2ns -) 1,000 mls @ 125 mls/hr IV ASDIR [facility] Last Admin: 09/24/17 07:10 Dose: 125 mls/hr Insulin Aspart (Novolog Vial Sliding Scale -) 1 vial SQ TIDAC [facility] PRN Reason: Protocol Last Admin: 09/24/17 06:32 Dose: Not Given Levothyroxine Sodium (Synthroid -) 300 mcg PO ACBK [facility] Last Admin: 09/24/17 06:30 Dose: 300 mcg Lorazepam (Ativan -) 2 mg PO HS PRN PRN Reason: ANXIETY Lorazepam (Ativan Injection -) 1 mg IVPUSH TID PRN PRN Reason: ANXIETY Morphine Sulfate (Morphine Injection -) 2 mg IVPUSH Q4H PRN PRN Reason: PAIN Ondansetron HCl (Zofran Injection) 8 mg IVPB Q8H PRN PRN Reason: NAUSEA Pantoprazole Sodium (Protonix Iv) 40 mg IVPUSH DAILY [facility] Last Admin: 09/24/17 10:50 Dose: 40 mg Quetiapine Fumarate (Seroquel -) 800 mg PO HS [facility] Last Admin: 09/23/17 22:08 Dose: 800 mg Ziprasidone (Geodon -) 40 mg PO BID [facility] Last Admin: 09/24/17 10:31 Dose: Not Given - Objective Vital Signs: Vital Signs Temperature 97.8 F 09/24/17 06:00 Pulse Rate 83 09/24/17 10:00 Respiratory Rate 20 09/24/17 06:00 Blood Pressure 137/84 09/24/17 06:00 O2 Sat by Pulse Oximetry (%) 95 09/24/17 10:00 Constitutional: Yes: No Distress, Calm, Obese Eyes: Yes: Conjunctiva Clear, EOM Intact Respiratory: Yes: Regular, On Nasal O2. No: SOB Gastrointestinal: Yes: Soft, Abdomen, Obese, Hernia (umbilical bulge (pinkish) and supraumbilical fat/hernia sac palpable in subcu tissues, tender, not reducible), Tenderness (at periumbilical area and umbilicus, hernia not reducible through fascia; no sig tenderness elsewhere) Extremities: No: Cool, Cyanosis Integumentary: Yes: Rash (dorsal feet). No: Jaundice Neurological: Yes: Alert, Oriented, Other (cane for ambulation) Psychiatric: Yes: Alert, Oriented. No: Agitated Labs: CBC, BMP 09/24/17 09:30 chemistry pending Problem List - Problems (1) Incisional hernia of anterior abdominal wall without obstruction or gangrene Assessment/Plan: patient with symptomatic incarcerated incisional periumbilical ventral hernia NPO/IVF checking labs FS with SSI cardio/pulm optimized with medium/reasonable risk given underlying comorbidities holding aspirin O2 and CPAP as at home GI/DVT prophylaxis - early ambulation, SCD's periop antibiotic only for ICU monitoring postop incentive spirometry/pulmonary toilet postop pain meds prn - discussed with patient trying tramadol prn Discussed with patient risks, benefits and alternatives of laparoscopic possible open/hybrid incarcerated incisional ventral hernia repair, including but not limited to bleeding, infection, injury to adjacent structures, mesh infection, recurrent hernia, hernia in port sites; alternatives include delayed or no surgery - risks of this include continued pain, strangulation of fat, further incarceration of more fat or bowel content. Patient desires to proceed with operation - OR today for above. Informed consent signed for same. Dr. Alberto Rosa will be covering postoperatively through Thursday. 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 (4) COPD (chronic obstructive pulmonary disease) Assessment/Plan: O2/CPAP as at home pulmonary on board ICU postop Code(s): J44.9 - CHRONIC OBSTRUCTIVE PULMONARY DISEASE, UNSPECIFIED Qualifiers: COPD type: unspecified COPD Qualified Code(s): J44.9 - Chronic obstructive pulmonary disease, unspecified (5) Obstructive sleep apnea on CPAP Assessment/Plan: see above Code(s): G47.33 - OBSTRUCTIVE SLEEP APNEA (ADULT) (PEDIATRIC) (6) Schizoaffective disorder, bipolar type Assessment/Plan: continue home meds Code(s): F25.0 - SCHIZOAFFECTIVE DISORDER, BIPOLAR TYPE (7) Hypertension Assessment/Plan: continue home meds cardiology on board Code(s): I10 - ESSENTIAL (PRIMARY) HYPERTENSION Qualifiers: Hypertension type: essential hypertension Qualified Code(s): I10 - Essential (primary) hypertension (8) Hyperlipidemia Code(s): E78.5 - HYPERLIPIDEMIA, UNSPECIFIED Qualifiers: Hyperlipidemia type: pure hypercholesterolemia Qualified Code(s): E78.00 - Pure hypercholesterolemia, unspecified; E78.0 - Pure hypercholesterolemia
[2017-09-24] MEDS ORDERED: ceFAZolin SODIUM 1 GM VIAL IVPB ONE (13:20)
[2017-09-24] MEDS ORDERED: DESFLURANE GAS 240 ML BOTTLE IH ONE (13:47)
[2017-09-24] MEDS ORDERED: ONDANSETRON 4 MG/2 ML VIAL IVPUSH PRN (16:19)
[2017-09-24] MEDS ORDERED: oxyCODONE HCL 5 MG TABLET PO PRN (16:19)
--- NOTE | 2017-09-24 16:33 | OP ---
Operative Note - Note: Operative Date: 09/24/17 Pre-Operative Diagnosis: incarcerated incisional periumbilical hernia Operation: laparoscopic incarcerated incisional ventral hernia repair Findings: 3cm defect with omentum, reduced entirely; fascia percutaneously closed; 6" x 8 " Bard Ventralight mesh with Echo PS used for reinforcement Implants: 6x8" elliptical Bard Ventralight mesh with Echo PS Post-Operative Diagnosis: Same as Pre-op Surgeon: Bahman Holcomb Rehabilitation Aide/Scheduler: Alberto Rosa Anesthesiologist/PICKLING TANK OPERATOR: Donna Garay Anesthesia: General, Local (20ml 0.5% marcaine) Specimens Removed: none Estimated Blood Loss (mls): 5 Drains & Tubes with Location: Hu catheter Drains, Volume Out (mls): 50 (UOP) Fluid Volume Replaced (mls): 900 (crystalloid) Operative Report Dictated: Yes
[2017-09-24] MEDS ORDERED: traMADol HCL 50 MG TABLET PO PRN (16:35)
[2017-09-24] MEDS ORDERED: morphine CARPU-JECT 2 MG/1 ML DISP.SYRIN IVPUSH PRN ×2 (16:44→17:55)
[2017-09-24] MEDS ORDERED: LACTATED RINGERS SOLUTION 1,000 ML/1,000 ML INFUS.BAG IV SCH (16:45)
[2017-09-24] MEDS ORDERED: IBUPROFEN 800 MG/8 ML IJ IVPB ONE (17:15)
[2017-09-24] MEDS: IBUPROFEN 800 MG/8 ML IJ IVPB ONE ×2 (17:40→20:17)
[2017-09-24] MEDS ORDERED: ONDANSETRON 4 MG/2 ML VIAL IVPB PRN (17:55)
[2017-09-24] MEDS ORDERED: LORazepam 1 MG TABLET PO PRN (17:55)
[2017-09-24] MEDS ORDERED: LORazepam 2 MG/ML SDV VIAL IVPUSH PRN (17:55)
--- NOTE | 2017-09-24 18:52 | OP ---
DATE OF OPERATION: 09/24/2017 PREOPERATIVE DIAGNOSIS: Incarcerated incisional periumbilical hernia. POSTOPERATIVE DIAGNOSIS: Incarcerated incisional periumbilical hernia. PROCEDURE: Laparoscopic incarcerated incisional ventral hernia repair. SURGEON: Bahman Holcomb MD RADIAL DRILL PRESS SET UP OPERATOR: Alberto Rosa MD ANESTHESIA: General endotracheal. ESTIMATED BLOOD LOSS: 5 mL. FLUIDS: 900 mL of crystalloid. URINE OUTPUT: 50 mL. SPECIMENS: None. FINDINGS: A 3-cm supraumbilical defect with omental content, which was entirely reduced. The fascia was percutaneously closed, and a 6 inch x 8 inch Bard Ventralight mesh with Echo Positioning System was used for reinforcement. DISPOSITION: Stable and extubated to PACU. INDICATIONS FOR PROCEDURE: The patient is a 61-year-old morbidly obese female with multiple medical problems including diabetes, oxygen-dependent COPD, and sleep apnea on CPAP at night, status post laparoscopic cholecystectomy with an incisional periumbilical hernia from her supraumbilical laparoscopic site. Although she has had the hernia for some time, she presented to the emergency room with several days of increasing periumbilical and abdominal pain attributed to her hernia, which was bulging more and had been more painful and tender. CT scan did show the hernia with only fat content and no evidence of bowel obstruction, but she continued to require pain medication and the hernia was not reducible. She was admitted to the hospital and surgery was consulted for repair. The risks, benefits, and alternatives of laparoscopic incarcerated incisional ventral hernia repair were discussed with the patient including but not limited to bleeding, infection, injury to intraabdominal structures, recurrence of hernia, hernia in other port sites, mesh infection with necessity for later removal, and the patient does want to proceed and has signed informed consent for the same. She is then brought to the operating room. DESCRIPTION OF PROCEDURE: The patient was brought to the OR and laid supine on the operating table. Sequential compression devices were applied to bilateral lower extremities and 2 g of Ancef were given as preoperative antibiotic. After induction and intubation by anesthesia, a Hu catheter was placed in the patient's bladder, which was left in at the end of the case for accurate intake and output measurements, as she was going to the ICU for postoperative monitoring. The hernia was partially reducible at the umbilicus, but not fully reducible through the fascia. The patient's abdomen was then prepped and draped with ChloraPrep in the usual sterile fashion. A left upper quadrant short incision was made with a scalpel and carried through the subcutaneous tissues with electrocautery, until the abdominal wall fascia was identified, which was then scored and elevated with Bertrand clamps. The underlying muscle was split with the tip of a clamp and the peritoneum was entered bluntly with the tip of the clamp, and a fingertip was inserted to ensure entry into the abdominal cavity and the absence of any underlying adhesions. A stay suture of 0 Vicryl was then placed in the fascia for later closure in a [id number] fashion. The Isaura trocar was introduced directly into the abdominal cavity and secured in place with the balloon. The abdomen was insufflated with carbon dioxide and a 30-degree laparoscope was inserted to inspect the abdominal cavity. The patient 's hernia was immediately apparent with omentum drawn up into the hernia sac. There were no other obvious abnormalities noted on initial inspection. There was no bowel content drawn up into the hernia. An additional 5-mm port was placed under direct vision in the left lateral abdomen. Through this port, a grasper was introduced and used to reduce, along with manual manipulation from the external abdominal wall, the omental contents from the hernia sac. Once the entire portion of omentum had been drawn down back into the abdominal cavity, a 3-cm diameter defect was clearly visible in the abdominal wall. There was one additional small piece of fat noted and withdrawn. The intraabdominal pressure was then reduced and the CO2 insufflation was temporarily paused. The suture passer was used through the center of the umbilicus to place a [id number] 0 Prolene stitch to close the fascial hernia defect. This was accomplished through the same external opening, and the knot was then tied down and noted under direct vision from the laparoscope to close the defect very effectively. Once this had been accomplished, the 6 x 8 inch elliptical Bard Ventralight mesh with the Echo Positioning System was opened, dipped in saline, and rolled up for insertion into the abdominal cavity through the Isaura trocar. An additional 5-mm port was placed under direct vision in the right upper quadrant, and the camera was moved to this site to visualize the mesh coming into the abdominal cavity. The suture passer was then used to grasp the balloon tubing and withdraw it out the same hole at the umbilicus. The Echo Positioning System was inflated according to the operations officer trust department's instructions and held in place with a mosquito clamp. The mesh was then turned to position it with the long axis running craniocaudad. Absorbable tacks were then used to begin securing the mesh to the abdominal wall circumferentially. Once the outer ring of tacks had been placed, the balloon assembly was deflated and withdrawn out the Isaura trocar, taking care to ensure that all parts were withdrawn. An additional inner ring of tacks was then placed with the tacker, and the mesh was noted to be secured in position. The 5-mm ports were removed under direct vision. The abdominal cavity was inspected and noted to be both hemostatic and with no other injuries or abnormalities seen. The Isaura trocar balloon was then deflated and the camera and Isaura were withdrawn from the abdominal cavity, after visualizing the mesh come down against the intraabdominal contents with exsufflation of the carbon dioxide. Once the abdomen was fully desufflated, the stay suture of the Isaura trocar site was tied to close the fascia there. There was still an opening palpable with a fingertip, thus an additional simple suture of 0 Vicryl was placed to fully close the defect. The port sites were all irrigated with saline solution. Local anesthetic was injected into all port sites. The small hole at the umbilical skin was closed with a simple 4-0 buried subcuticular suture and Dermabond applied to the site. Then 4-0 subcuticular sutures were used to close the remaining port sites, including a running at the Isaura location. Benzoin and Steri-Strips were applied to the remainder of the incisions, which were then covered with gauze and Tegaderm. Counts were correct at the end of the procedure. The patient was then awakened and extubated by anesthesia and the Hu catheter was left in the patient's bladder. The patient was then moved onto to an ICU bed and taken to the recovery room in stable condition, having tolerated the procedure fairly well. Dr. Rosa was an essential assistant clinical nurse manager throughout the operative procedure, including facilitating entry into the abdominal cavity, manipulation of the laparoscope, and assistance with both mesh insertion and securing it with tacks, as well as skin closure. Drew [id number] MTDD
[2017-09-24] MEDS ORDERED: ceFAZolin 2 GRAM PREMIX BAG IVPB ONE ×2 (19:30)
[2017-09-24] MEDS ORDERED: ceFAZolin SODIUM 1 GM VIAL ONE (19:47)
[2017-09-24] MEDS: LACTATED RINGERS SOLUTION 1,000 ML/1,000 ML INFUS.BAG IV SCH (20:00)
[2017-09-24] MEDS ORDERED: KETOROLAC TROMETHAMINE 30 MG/1 ML VIAL IVPUSH ONE (20:30)
[2017-09-24] MEDS ORDERED: ENALAPRILAT DIHYDRATE 1.25 MG/1 ML VIAL IVPB ONE (20:36)
[2017-09-24] MEDS ORDERED: morphine SULFATE 4 MG/ML VIAL IVPUSH PRN (21:37)
[2017-09-24] MEDS ORDERED: CHLORHEXIDINE GLUCONATE 4% CLEANSER FOR DECOLONIZATION TP SCH (22:00)
[2017-09-24] MEDS ORDERED: MUPIROCIN 2% TOPICAL OINTMENT FOR DECOLONIZATION NS SCH (22:00)
[2017-09-24] MEDS ORDERED: QUEtiapine FUMARATE 200 MG TABLET PO SCH (22:00)
[2017-09-24] MEDS: traMADol HCL 50 MG TABLET PO PRN (22:07)
[2017-09-24] MEDS: busPIRone HCL 5 MG TABLET PO SCH (22:08)
[2017-09-24] MEDS: QUINAPRIL HCL 10 MG TABLET (FP) PO SCH (22:10)
[2017-09-24] MEDS ORDERED: PT OWN MED DRAWER 7, Y5N ONE ×2 (22:16→22:17)
--- NOTE | 2017-09-24 22:31 | CONSULT ---
Consult Consult Specialty:: Pulmonary Critical Care Reason for Consultation:: s/p ventral hernia repair - History of Present Illness Chief Complaint: Abdominal pain History of Present Illness: 61 yo female with h/o COPD (on home O2 and CPAP at night), SHELL, DM, HTN, breast CA who was referred to the hospital by her urologist for evaluation of worsening periumbilical and abdominal pain at the site of her ventral hernia. Admission CT showed omentum-containing periumbilical hernia with no e/o obstruction. Surgery was consulted for possible repair and she is now s/p laparoscopic incarcerated incisional ventral hernia repair. Current Medications Buspirone HCl (Buspar -) 15 mg PO TID [facility] Last Admin: 09/24/17 22:08 Dose: 15 mg Lactated Ringer's (Lactated Ringers Solution) 1,000 ml in 1,000 mls @ 125 mls/ hr IV ASDIR [facility] Last Admin: 09/24/17 20:00 Dose: 0 mls Insulin Aspart (Novolog Vial Sliding Scale -) 1 vial SQ TIDAC [facility] PRN Reason: Protocol Levothyroxine Sodium (Synthroid -) 300 mcg PO ACBK [facility] Lorazepam (Ativan -) 2 mg PO HS PRN PRN Reason: ANXIETY Lorazepam (Ativan Injection -) 1 mg IVPUSH Q8H PRN PRN Reason: ANXIETY Morphine Sulfate (Morphine Sulfate) 4 mg IVPUSH Q3H PRN PRN Reason: SEVERE PAIN Ondansetron HCl (Zofran Injection) 4 mg IVPB Q4H PRN PRN Reason: NAUSEA Pantoprazole Sodium (Protonix Iv) 40 mg IVPUSH DAILY [facility] Quetiapine Fumarate (Seroquel -) 800 mg PO HS [facility] Last Admin: 09/24/17 22:07 Dose: 800 mg Quinapril HCl (Accupril -) 10 mg PO DAILY [facility] Last Admin: 09/24/17 22:10 Dose: 10 mg Tramadol HCl (Ultram -) 50 mg PO Q8H PRN PRN Reason: PAIN Last Admin: 09/24/17 22:07 Dose: 50 mg Ziprasidone (Geodon -) 40 mg PO BID [facility] Last Admin: 09/24/17 22:08 Dose: 40 mg - Past Medical History Cardio/Vascular: Yes: HTN, Hyperlipdemia Pulmonary: Yes: COPD, O2 Dependent, Sleep Apnea Gastrointestinal: Yes: Pancreatitis Hepatobiliary: Yes: Cholelithiasis Renal/: Yes: Renal Calculi, Other (urge incontinence, enuresis) ...: No Psych: Yes: Anxiety, Bipolar (schizoaffective bipolar) Musculoskeletal: Yes: Osteoarthritis Endocrine: Yes: Diabetes Mellitus, Hypothyroidism Additional Medical History: morbid obesity - Past Surgical History Past Surgical History: Yes: Breast Biopsy (left biopsy benign and right lumpectomy for cancer), Cholecystectomy (laparoscopic), Colonoscopy, Joint Replacement (left hip) - Alcohol/Substance Use Hx Alcohol Use: No History of Substance Use: reports: None - Smoking History Smoking history: Former smoker Have you smoked in the past 12 months: No Aproximately how many cigarettes per day: 20 If you are a former smoker, when did you quit?: March 2017 - Social History ADL: Independent (walks with cane) History of Recent Travel: No Home Medications - Allergies Allergies/Adverse Reactions: Allergies Allergy/AdvReac Type Severity Reaction Status Date / Time acetaminophen [From Tylenol] Allergy "VOMITS" Verified 09/22/17 16:30 almond oil Allergy "ITCHY" Verified 09/22/17 16:30 citalopram hydrobromide Allergy "STROKE Verified 09/22/17 16:30 [From Celexa] LIKE SYMPTOMS" divalproex sodium Allergy "PANCREATIT Verified 09/22/17 16:30 [From Depakote] IS" Iodinated Contrast- Oral and Allergy Verified 09/22/17 16:30 IV Dye [Iodinated Contrast Media - IV Dye] lamotrigine [From Lamictal] Allergy "FACE Verified 09/22/17 16:30 SWELLS" lithium [[place]] Allergy "SEIZURES,SWOLLEN Verified 09/22/17 16:30 ARMS/LEGS" meperidine HCl [From Demerol] Allergy "TURNS RED Verified 09/22/17 16:30 WHEN MIXED WITH NOVACAINE" shellfish derived Allergy "TURNED Verified 09/22/17 16:30 RED /ITCHY" sulfamethoxazole Allergy "COLLAPSED, Verified 09/22/17 16:30 [From Bactrim] HEART ISSUE" topiramate [From Topamax] Allergy TO Verified 09/22/17 16:30 POISONOUS LEVELS" trimethoprim [From Bactrim] Allergy "COLLAPSED,HEART Verified 09/22/17 16:30 ISSUE" - Home Medications Home Medications: Ambulatory Orders Buspirone HCl [Buspar] 15 mg PO TID 03/20/14 Lorazepam [Ativan] 2 mg PO HS PRN 03/20/14 Rosuvastatin Calcium [Crestor] 10 mg PO HS 03/20/14 FA/Mv,Ca,Iron,Min/Lycopene/Lut [Centrum Tablet] 1 each PO DAILY 07/03/14 Anastrozole [Arimidex -] 1 mg PO DAILY #0 12/06/16 Aspirin [ASA -] 81 mg PO DAILY #0 12/06/16 Gabapentin [Neurontin -] 100 mg PO Q8H #0 12/06/16 Insulin (Levemir) [Levemir Flexpen -] 10 units SQ HS #0 12/06/16 Insulin (Novolog) [Novolog Flexpen -] 0 units SQ ASDIR #0 12/06/16 Levothyroxine [Synthroid -] 300 mcg PO DAILY #0 12/06/16 Polyethylene Glycol 3350 [Miralax 119 gm Btl -] 17 gm PO DAILY #0 12/06/16 Quetiapine Fumarate [Seroquel -] 800 mg PO HS #0 12/06/16 Quinapril HCl [Accupril -] 10 mg PO DAILY #0 12/06/16 Ziprasidone HCl [Geodon] 40 mg PO BID #0 12/06/16 Family Disease History - Family Disease History Other Family History: not pertinent Physical Exam Vital Signs: Vital Signs Temperature 98.5 F 09/24/17 20:00 Pulse Rate 78 09/24/17 20:00 Respiratory Rate 18 09/24/17 21:00 Blood Pressure 143/86 09/24/17 20:00 O2 Sat by Pulse Oximetry (%) 96 09/24/17 21:00 Constitutional: Yes: Calm Cardiovascular: Yes: WNL Respiratory: Yes: Diminished, On Nasal O2 Gastrointestinal: Yes: Abdomen, Obese, Hypoactive Bowel Sounds, Other ( laparascopic sites c/d/i) Extremities: Yes: Other (Dry erythematous skin bilateral feet, chronic as per pt. Ext warm, normal peripheral pulses) Neurological: Yes: WNL Labs: CBC, BMP 09/24/17 09:30 09/24/17 09:30 Problem List - Problems (1) Abdominal wall hernia Code(s): K43.9 - VENTRAL HERNIA WITHOUT OBSTRUCTION OR GANGRENE (2) Diabetes mellitus type 2, insulin dependent Code(s): E11.9 - TYPE 2 DIABETES MELLITUS WITHOUT COMPLICATIONS; Z79.4 - SKILLED NURSING (CURRENT) USE OF INSULIN (3) Obstructive sleep apnea on CPAP Code(s): G47.33 - OBSTRUCTIVE SLEEP APNEA (ADULT) (PEDIATRIC) Assessment/Plan 61 yo female with h/o COPD (on home O2 and CPAP at night), SHELL, DM, HTN, breast CA who presented for evaluation of worsening periumbilical and abdominal pain at the site of her ventral hernia. Now admitted to ICU post op s/p laparoscopic incarcerated incisional ventral hernia repair. -surgery following -abx given in OR -pain management with morphine prn -antiemetics prn -diet advanced -supplemental O2 (on 3L at home) -CPAP overnight (CPAP of 11) -IS -VTE ppx ZACK Chan Critical care time: 35 min
[2017-09-25] MEDS ORDERED: PT OWN MED DRAWER 7, Y5N ONE ×6 (06:18→14:55)
[2017-09-25] MEDS: busPIRone HCL 5 MG TABLET PO SCH ×3 (06:22→21:29)
[2017-09-25] MEDS: ALBUTEROL SO4 0.083% IH SOL 2.5 MG/3 ML VIAL.NEB. NEB PRN ×2 (06:41→10:40)
--- NOTE | 2017-09-25 06:45 | PN ---
Progress Note, Physician Chief Complaint: painful abdominal hernia History of Present Illness: s/p laparoscopic repair of incarcerated supraumbilical incisional hernia POD 1 61 yo female PMH HTN, COPD on CPAP, s/p lap cholecystectomy developed a periumbilical incarcerated hernia, she was extubated yesterday and tolerated CPAP overnight. She reports only mild pain in the umbilical area. She was eating breakfast in near-seated position in the ICU. She also complained of some calf pain that she did not notice prior to surgery L>>R, no associated tachycardia, no SOB. - Current Medication List Current Medications: Active Medications Albuterol Sulfate (Ventolin 0.083% Nebulizer Soln -) 1 amp NEB Q4H PRN PRN Reason: SHORT OF BREATH/WHEEZING Last Admin: 09/25/17 06:41 Dose: 1 amp Buspirone HCl (Buspar -) 15 mg PO TID [facility] Last Admin: 09/25/17 06:22 Dose: 15 mg Lactated Ringer's (Lactated Ringers Solution) 1,000 ml in 1,000 mls @ 125 mls/ hr IV ASDIR [facility] Last Admin: 09/24/17 20:00 Dose: 0 mls Insulin Aspart (Novolog Vial Sliding Scale -) 1 vial SQ TIDAC [facility] PRN Reason: Protocol Levothyroxine Sodium (Synthroid -) 300 mcg PO ACBK [facility] Last Admin: 09/25/17 06:24 Dose: 300 mcg Lorazepam (Ativan -) 2 mg PO HS PRN PRN Reason: ANXIETY Lorazepam (Ativan Injection -) 1 mg IVPUSH Q8H PRN PRN Reason: ANXIETY Morphine Sulfate (Morphine Sulfate) 4 mg IVPUSH Q3H PRN PRN Reason: SEVERE PAIN Last Admin: 09/25/17 03:06 Dose: 4 mg Ondansetron HCl (Zofran Injection) 4 mg IVPB Q4H PRN PRN Reason: NAUSEA Pantoprazole Sodium (Protonix Iv) 40 mg IVPUSH DAILY [facility] Quetiapine Fumarate (Seroquel -) 800 mg PO HS [facility] Last Admin: 09/24/17 22:07 Dose: 800 mg Quinapril HCl (Accupril -) 10 mg PO DAILY [facility] Last Admin: 09/24/17 22:10 Dose: 10 mg Tramadol HCl (Ultram -) 50 mg PO Q8H PRN PRN Reason: PAIN Last Admin: 09/24/17 22:07 Dose: 50 mg Ziprasidone (Geodon -) 40 mg PO BID [facility] Last Admin: 09/24/17 22:08 Dose: 40 mg - Objective Vital Signs: Vital Signs Temperature 97.6 F 09/24/17 22:00 Pulse Rate 68 09/25/17 00:00 Respiratory Rate 12 09/25/17 00:00 Blood Pressure 148/83 09/25/17 00:00 O2 Sat by Pulse Oximetry (%) 99 09/25/17 02:14 Intake & Output 09/24/17 09/25/17 09/25/17 23:59 07:59 15:59 Intake Total 2050 1125 Output Total 855 400 Balance 1195 725 Intake: IV 1750 875 D5-1/2Ns - 1,000 ml @ 125 250 875 mls/hr IV ASDIR ANDREA Rx#: [id number] Oral 300 250 Output: Urine 850 400 Rodriguez 200 400 Estimated Blood Loss 5 Other: Voiding Method Indwelling Catheter Indwelling Catheter Bowel Movement No No Constitutional: Yes: No Distress, Calm, Obese Eyes: Yes: Conjunctiva Clear, EOM Intact HENT: Yes: Atraumatic, Normocephalic Neck: Yes: Supple, Trachea Midline Cardiovascular: Yes: Regular Rate and Rhythm, S1, S2 Respiratory: Yes: Regular, CTA Bilaterally, Diminished (minimal inspiratory effort). No: On Nasal O2 (pulse ox 98% on RA) Gastrointestinal: Yes: Abdomen, Obese, Hypoactive Bowel Sounds, Tenderness ( periumbilcal) ...Rectal Exam: Yes: Deferred Genitourinary: Yes: CVA Tenderness - Left, CVA Tenderness - Right, Rodriguez Present Extremities: Yes: Calf Tenderness (Left calf discomfort >> R, difficult to assess swelling or edema given baseline girth but there no gross diffrence in girth between the two). No: Cool, Cyanosis Edema: No Peripheral Pulses: Left Doralis Pedis: 2+, Right Dorsalis Pedis: 2+ Integumentary: Yes: Incision (4 on abdomen). No: Body Piercing Wound/Incision: Yes: Clean/Dry. No: Dressing Removed (bandages clean) Neurological: Yes: Alert, Oriented Psychiatric: Yes: Alert, Oriented Additional Findings/Remarks: expressed concerns about her brothers health status , and her role in his care Labs: CBC, BMP 09/24/17 09:30 09/24/17 09:30 INR, PTT INR 0.95 (0.82-1.09) 09/22/17 16:40 Abnormal Lab Results 09/24/17 09/24/17 09/25/17 09:30 09:30 06:00 WBC 11.8 H D Neutrophils % 83.1 H D Eosinophils % 6.5 H D Chloride 108 H Creatinine Random Glucose 183 H Alkaline Phosphatase 124 H D Total Protein Albumin 09/25/17 06:00 WBC Neutrophils % Eosinophils % Chloride Creatinine 1.1 H Random Glucose 149 H Alkaline Phosphatase Total Protein 6.0 L Albumin 3.1 L Problem List - Problems (1) Incisional hernia of anterior abdominal wall without obstruction or gangrene Assessment/Plan: POD1 s/p Lap incisional hernia repair with mesh She is stable postoperatively, tolerating diet, no flatus reported yet leave dressings in place, remove tomorrow discontinue rodriguez catheter OOB/ to chair adequate analgesia continue IS This patient is in the ICU for monitoring postoperatively given baseline co- morbidities. Time spent reviewing chart, examining patient, talking with providers and/or patient and documentation is 45 minutes Code(s): K43.2 - INCISIONAL HERNIA WITHOUT OBSTRUCTION OR GANGRENE (2) COPD (chronic obstructive pulmonary disease) Assessment/Plan: continue CPAP continue to encourage IS as tolerated seated position is better her breathing Code(s): J44.9 - CHRONIC OBSTRUCTIVE PULMONARY DISEASE, UNSPECIFIED Qualifiers: COPD type: unspecified COPD Qualified Code(s): J44.9 - Chronic obstructive pulmonary disease, unspecified (3) Morbid obesity with BMI of 40.0-44.9, adult Assessment/Plan: continue IS OOB with assistance Code(s): E66.01 - MORBID (SEVERE) OBESITY DUE TO EXCESS CALORIES; Z68.41 - BODY MASS INDEX (BMI) 40.0-44.9, ADULT (4) Calf pain Assessment/Plan: r/o DVT f/u bilateral LE duplex continue DVT prohylaxsis SCD and may use anticoag therapy now Code(s): M79.669 - PAIN IN UNSPECIFIED LOWER LEG (5) Incarcerated umbilical hernia Code(s): K42.0 - UMBILICAL HERNIA WITH OBSTRUCTION, WITHOUT GANGRENE (6) Obstructive sleep apnea on CPAP Assessment/Plan: continue CPAP and IS Code(s): G47.33 - OBSTRUCTIVE SLEEP APNEA (ADULT) (PEDIATRIC)
[2017-09-25] MEDS ORDERED: LEVOTHYROXINE NA 150 MCG TABLET PO SCH (07:00)
[2017-09-25 07:09] LABS: BASOPHIL 0.5 % (0-2.0); MCH 29.3 pg (25.7-33.7); MCHC 33.6 g/dl (32.0-36.0); MEAN PLT VOLUME 8.7 fl (7.5-11.1); NEUTROPHILS 83.1 % (42.8-82.8); PLATELET COUNT 181 K/MM3 (134-434); RDW 14.3 % (11.6-15.6); WHITE BLOOD COUNT 11.8 K/mm3 (4.0-10.0)
[2017-09-25 07:47] LABS: ALBUMIN 3.1 g/dl (3.4-5.0); ALK PHOS 107 U/L (45-117); ANION GAP 12 (8-16); BILIRUBIN,TOTAL 0.5 mg/dL (0.2-1.0); CALCIUM 8.5 mg/dL (8.5-10.1); CO2 24 mmol/L (21-32); CREATININE 1.1 mg/dL (0.55-1.02); GLUCOSE,RANDOM 149 mg/dL (74-106); SGOT/AST 18 U/L (15-37); SGPT/ALT 27 U/L (12-78)
[2017-09-25] MEDS: traMADol HCL 50 MG TABLET PO PRN ×2 (08:03→17:53)
[2017-09-25] MEDS: LACTATED RINGERS SOLUTION 1,000 ML/1,000 ML INFUS.BAG IV SCH (08:12)
[2017-09-25] MEDS: INSULIN SLIDING SCALE (NOVOLOG) 1 VIAL SQ SCH ×3 (08:21→17:58)
--- NOTE | 2017-09-25 09:26 | PN ---
Progress Note (short form) - Note Progress Note: Pt seen/ examined in icu. chart reviewed sitting in bed comfortable says feels much better denies pain. mild anxiety + started taking orally pod #1 not passing gas yet. Microbiology 09/22/17 19:10 Urine Culture - Final Urine - Urine Clean Catch NO GROWTH OBTAINED Vital Signs Temp 99 F 09/25/17 08:00 Pulse 80 09/25/17 08:00 Resp 22 09/25/17 08:00 BP 135/80 09/25/17 08:00 Pulse Ox 95 09/25/17 08:15 Intake & Output 09/24/17 09/24/17 09/25/17 11:59 23:59 11:59 Intake Total 1000 2050 1125 Output Total 855 400 Balance 1000 1195 725 Intake: IV 1000 1750 875 D5-1/2Ns - 1,000 ml @ 125 1000 250 875 mls/hr IV ASDIR ANDREA Rx#: [id number] IVPB 0 Oral 300 250 Output: Urine 850 400 Hu 200 400 Estimated Blood Loss 5 Other: Voiding Method Toilet Indwelling Catheter Indwelling Catheter Bowel Movement Yes No No # Bowel Movements 1 Active Medications Albuterol Sulfate (Ventolin 0.083% Nebulizer Soln -) 1 amp NEB Q4H PRN PRN Reason: SHORT OF BREATH/WHEEZING Last Admin: 09/25/17 06:41 Dose: 1 amp Buspirone HCl (Buspar -) 15 mg PO TID ANDREA Last Admin: 09/25/17 06:22 Dose: 15 mg Lactated Ringer's (Lactated Ringers Solution) 1,000 ml in 1,000 mls @ 125 mls/ hr IV ASDIR ANDREA Last Admin: 09/25/17 08:12 Dose: 125 mls/hr Insulin Aspart (Novolog Vial Sliding Scale -) 1 vial SQ TIDAC ANDREA PRN Reason: Protocol Last Admin: 09/25/17 08:21 Dose: 2 units Ketoconazole (Nizoral 2% Cream -) 1 applic TP DAILY ANDREA Levothyroxine Sodium (Synthroid -) 300 mcg PO ACBK ANDREA Last Admin: 09/25/17 06:24 Dose: 300 mcg Lorazepam (Ativan -) 2 mg PO HS PRN PRN Reason: ANXIETY Lorazepam (Ativan Injection -) 1 mg IVPUSH Q8H PRN PRN Reason: ANXIETY Morphine Sulfate (Morphine Sulfate) 4 mg IVPUSH Q3H PRN PRN Reason: SEVERE PAIN Last Admin: 09/25/17 03:06 Dose: 4 mg Ondansetron HCl (Zofran Injection) 4 mg IVPB Q4H PRN PRN Reason: NAUSEA Pantoprazole Sodium (Protonix Iv) 40 mg IVPUSH DAILY [facility] Quetiapine Fumarate (Seroquel -) 800 mg PO HS [facility] Last Admin: 09/24/17 22:07 Dose: 800 mg Quinapril HCl (Accupril -) 10 mg PO DAILY [facility] Last Admin: 09/24/17 22:10 Dose: 10 mg Tramadol HCl (Ultram -) 50 mg PO Q8H PRN PRN Reason: PAIN Last Admin: 09/25/17 08:03 Dose: 50 mg Ziprasidone (Geodon -) 40 mg PO BID [facility] Last Admin: 09/24/17 22:08 Dose: 40 mg CBC, BMP 09/25/17 06:00 09/25/17 06:00 Microbiology 09/22/17 19:10 Urine Culture - Final Urine - Urine Clean Catch NO GROWTH OBTAINED Physical Exam. Constitutional: Yes: No Distress, mildly anxious. Cardiovascular: Yes: Regular Rate and Rhythm. Respiratory: Yes: CTA Bilaterally Gastrointestinal: Yes: Normal Bowel Sounds, Soft, Abdomen, Obese, Tenderness ( umbilical hernia). No: Distention Edema: No Problem List - Problems (1) Incarcerated umbilical hernia Code(s): K42.0 - UMBILICAL HERNIA WITH OBSTRUCTION, WITHOUT GANGRENE (2) Abdominal pain Code(s): R10.9 - UNSPECIFIED ABDOMINAL PAIN Qualifiers: Abdominal location: periumbilical Qualified Code(s): R10.33 - Periumbilical pain (3) Abdominal wall hernia Code(s): K43.9 - VENTRAL HERNIA WITHOUT OBSTRUCTION OR GANGRENE (4) Schizoaffective disorder, bipolar type Code(s): F25.0 - SCHIZOAFFECTIVE DISORDER, BIPOLAR TYPE (5) COPD (chronic obstructive pulmonary disease) Code(s): J44.9 - CHRONIC OBSTRUCTIVE PULMONARY DISEASE, UNSPECIFIED Qualifiers: COPD type: unspecified COPD Qualified Code(s): J44.9 - Chronic obstructive pulmonary disease, unspecified (6) Obstructive sleep apnea on CPAP Code(s): G47.33 - OBSTRUCTIVE SLEEP APNEA (ADULT) (PEDIATRIC) (7) Schizophrenia Code(s): F20.9 - SCHIZOPHRENIA, UNSPECIFIED Qualifiers: Schizophrenia type: unspecified Qualified Code(s): F20.9 - Schizophrenia, unspecified Assessment/Plan pod #1 clinically stable meds reviewed continue present care. pain control dvt prophylaxis mood stable monitor bgm. will follow cc time 35 min. discussed with nursing staff also.
[2017-09-25] MEDS: QUINAPRIL HCL 10 MG TABLET (FP) PO SCH (09:44)
[2017-09-25] MEDS: ZIPRASIDONE 40 MG CAPSULE (FP) PO SCH ×2 (09:45→21:29)
[2017-09-25] MEDS ORDERED: PANTOPRAZOLE SODIUM 40 MG VIAL IVPUSH SCH (10:00)
--- NOTE | 2017-09-25 11:17 | EKG ---
Test Reason : Blood Pressure : / mmHG Vent. Rate : 083 BPM Atrial Rate : 083 BPM P-R Int : 168 ms QRS Dur : 100 ms QT Int : 388 ms P-R-T Axes : 060 -04 058 degrees QTc Int : 455 ms NORMAL SINUS RHYTHM INCOMPLETE RIGHT BUNDLE BRANCH BLOCK WHEN COMPARED WITH ECG OF 03-DEC-2016 07:29, NO SIGNIFICANT CHANGE WAS FOUND Confirmed by PAUL RIOS MD ([id number]) on 09/25/2017 11:17:21 AM Referred By: Confirmed By:PAUL RIOS MD
--- NOTE | 2017-09-25 11:26 | PN ---
Progress Note, Physician History of Present Illness: Reports post-op discomfort controlled. - Current Medication List Current Medications: Active Medications Albuterol Sulfate (Ventolin 0.083% Nebulizer Soln -) 1 amp NEB Q4H PRN PRN Reason: SHORT OF BREATH/WHEEZING Last Admin: 09/25/17 10:40 Dose: 1 amp Buspirone HCl (Buspar -) 15 mg PO TID [facility] Last Admin: 09/25/17 06:22 Dose: 15 mg Lactated Ringer's (Lactated Ringers Solution) 1,000 ml in 1,000 mls @ 125 mls/ hr IV ASDIR [facility] Last Admin: 09/25/17 08:12 Dose: 125 mls/hr Insulin Aspart (Novolog Vial Sliding Scale -) 1 vial SQ TIDAC [facility] PRN Reason: Protocol Last Admin: 09/25/17 08:21 Dose: 2 units Ketoconazole (Nizoral 2% Cream -) 1 applic TP DAILY [facility] Levothyroxine Sodium (Synthroid -) 300 mcg PO ACBK [facility] Last Admin: 09/25/17 06:24 Dose: 300 mcg Lorazepam (Ativan -) 2 mg PO HS PRN PRN Reason: ANXIETY Lorazepam (Ativan Injection -) 1 mg IVPUSH Q8H PRN PRN Reason: ANXIETY Morphine Sulfate (Morphine Sulfate) 4 mg IVPUSH Q3H PRN PRN Reason: SEVERE PAIN Last Admin: 09/25/17 03:06 Dose: 4 mg Ondansetron HCl (Zofran Injection) 4 mg IVPB Q4H PRN PRN Reason: NAUSEA Pantoprazole Sodium (Protonix Iv) 40 mg IVPUSH DAILY [facility] Last Admin: 09/25/17 09:47 Dose: 40 mg Quetiapine Fumarate (Seroquel -) 800 mg PO HS [facility] Last Admin: 09/24/17 22:07 Dose: 800 mg Quinapril HCl (Accupril -) 10 mg PO DAILY [facility] Last Admin: 09/25/17 09:44 Dose: 10 mg Tramadol HCl (Ultram -) 50 mg PO Q8H PRN PRN Reason: PAIN Last Admin: 09/25/17 08:03 Dose: 50 mg Ziprasidone (Geodon -) 40 mg PO BID [facility] Last Admin: 09/25/17 09:45 Dose: 40 mg - Objective Vital Signs: Vital Signs Temperature 99 F 09/25/17 08:00 Pulse Rate 70 09/25/17 10:20 Respiratory Rate 22 09/25/17 08:00 Blood Pressure 135/80 09/25/17 08:00 O2 Sat by Pulse Oximetry (%) 97 09/25/17 10:20 Constitutional: Yes: No Distress, Calm Neck: Yes: Supple Cardiovascular: Yes: Regular Rate and Rhythm Respiratory: Yes: Regular, Diminished Gastrointestinal: Yes: Soft, Abdomen, Obese, Tenderness Edema: Yes Edema: LLE: Trace, RLE: Trace Labs: CBC, BMP 09/25/17 06:00 09/25/17 06:00 INR, PTT INR 0.95 (0.82-1.09) 09/22/17 16:40 Problem List - Problems (1) Abdominal wall hernia Code(s): K43.9 - VENTRAL HERNIA WITHOUT OBSTRUCTION OR GANGRENE (2) Diabetes mellitus type 2, insulin dependent Code(s): E11.9 - TYPE 2 DIABETES MELLITUS WITHOUT COMPLICATIONS; Z79.4 - MCC (CURRENT) USE OF INSULIN (3) Incisional hernia of anterior abdominal wall without obstruction or gangrene Code(s): K43.2 - INCISIONAL HERNIA WITHOUT OBSTRUCTION OR GANGRENE (4) Morbid obesity with BMI of 40.0-44.9, adult Code(s): E66.01 - MORBID (SEVERE) OBESITY DUE TO EXCESS CALORIES; Z68.41 - BODY MASS INDEX (BMI) 40.0-44.9, ADULT (5) Schizoaffective disorder, bipolar type Code(s): F25.0 - SCHIZOAFFECTIVE DISORDER, BIPOLAR TYPE (6) Breast CA Code(s): C50.919 - MALIGNANT NEOPLASM OF UNSP SITE OF UNSPECIFIED FEMALE BREAST Qualifiers: Breast location: unspecified site of breast (7) COPD (chronic obstructive pulmonary disease) Code(s): J44.9 - CHRONIC OBSTRUCTIVE PULMONARY DISEASE, UNSPECIFIED Qualifiers: COPD type: unspecified COPD Qualified Code(s): J44.9 - Chronic obstructive pulmonary disease, unspecified (8) Hyperlipidemia Code(s): E78.5 - HYPERLIPIDEMIA, UNSPECIFIED Qualifiers: Hyperlipidemia type: pure hypercholesterolemia Qualified Code(s): E78.00 - Pure hypercholesterolemia, unspecified; E78.0 - Pure hypercholesterolemia (9) Hypertension Code(s): I10 - ESSENTIAL (PRIMARY) HYPERTENSION Qualifiers: Hypertension type: essential hypertension Qualified Code(s): I10 - Essential (primary) hypertension (10) Hypothyroidism Code(s): E03.9 - HYPOTHYROIDISM, UNSPECIFIED Qualifiers: Hypothyroidism type: unspecified Qualified Code(s): E03.9 - Hypothyroidism , unspecified (11) Obstructive sleep apnea on CPAP Code(s): G47.33 - OBSTRUCTIVE SLEEP APNEA (ADULT) (PEDIATRIC) (12) Schizophrenia Code(s): F20.9 - SCHIZOPHRENIA, UNSPECIFIED Qualifiers: Schizophrenia type: unspecified Qualified Code(s): F20.9 - Schizophrenia, unspecified (13) Status post repair of ventral hernia Code(s): Z98.890 - OTHER SPECIFIED POSTPROCEDURAL STATES; Z87.19 - PERSONAL HISTORY OF OTHER DISEASES OF THE DIGESTIVE SYSTEM Assessment/Plan Cat Scan: Report Reviewed (omentum-containing periumbilical hernia, no bowel content, no obstruction, no free fluid), Image Reviewed 12/03/2016 Echo: Mild cLVH, normal LV fxn, tr MR 09/23/2017 Echo: Normal LV size and fxn, tr-mild MR, tr TR 1. POD#1 laparoscopic ventral hernia repair 2. HTN/HCVD 3. Hypothyroidism 4. Hyperlipidemia 5. Schizophrenia 6. History of breast CA 7. Severe OSAS on cpap @ 11 cm H20 8. Type 2 DM 9. COPD on home O2 PLAN: 1. Resume ASA 81 mg QD once post-op hemostasis achieved, continue Accupril 10 mg QD and Crestor 10 mg QD 2. Continue cpap nightly, O2 as needed, DVT and GI prophylaxis, analgesia as needed, IS
--- NOTE | 2017-09-25 12:01 | PN ---
Teaching Attending Note Name of Resident: Freedom Aldana ATTENDING PHYSICIAN STATEMENT I saw and evaluated the patient. I reviewed the resident's note and discussed the case with the resident. I agree with the resident's findings and plan as documented. SUBJECTIVE: Patient seen and examined in the ICU. Awake and alert. (+) SOB likely due to restriction from surgery. NIPPV overnight without. No CP. Some dry cough. Intake & Output 09/22/17 09/23/17 09/24/17 09/25/17 23:59 23:59 23:59 23:59 Intake Total 665 3050 1125 Output Total 855 400 Balance 665 2195 725 Weight 340 lb 359 lb 3 oz Last Vital Signs Temp Pulse Resp BP Pulse Ox 99 F 70 22 135/80 97 09/25/17 08:00 09/25/17 10:20 09/25/17 08:00 09/25/17 08:00 09/25/17 10:20 Active Medications Albuterol Sulfate (Ventolin 0.083% Nebulizer Soln -) 1 amp NEB Q4H PRN PRN Reason: SHORT OF BREATH/WHEEZING Last Admin: 09/25/17 10:40 Dose: 1 amp Buspirone HCl (Buspar -) 15 mg PO TID [facility] Last Admin: 09/25/17 06:22 Dose: 15 mg Lactated Ringer's (Lactated Ringers Solution) 1,000 ml in 1,000 mls @ 125 mls/ hr IV ASDIR [facility] Last Admin: 09/25/17 08:12 Dose: 125 mls/hr Insulin Aspart (Novolog Vial Sliding Scale -) 1 vial SQ TIDAC [facility] PRN Reason: Protocol Last Admin: 09/25/17 08:21 Dose: 2 units Ketoconazole (Nizoral 2% Cream -) 1 applic TP DAILY [facility] Levothyroxine Sodium (Synthroid -) 300 mcg PO ACBK [facility] Last Admin: 09/25/17 06:24 Dose: 300 mcg Lorazepam (Ativan -) 2 mg PO HS PRN PRN Reason: ANXIETY Lorazepam (Ativan Injection -) 1 mg IVPUSH Q8H PRN PRN Reason: ANXIETY Morphine Sulfate (Morphine Sulfate) 4 mg IVPUSH Q3H PRN PRN Reason: SEVERE PAIN Last Admin: 09/25/17 03:06 Dose: 4 mg Ondansetron HCl (Zofran Injection) 4 mg IVPB Q4H PRN PRN Reason: NAUSEA Pantoprazole Sodium (Protonix Iv) 40 mg IVPUSH DAILY [facility] Last Admin: 09/25/17 09:47 Dose: 40 mg Quetiapine Fumarate (Seroquel -) 800 mg PO HS [facility] Last Admin: 09/24/17 22:07 Dose: 800 mg Quinapril HCl (Accupril -) 10 mg PO DAILY [facility] Last Admin: 09/25/17 09:44 Dose: 10 mg Tramadol HCl (Ultram -) 50 mg PO Q8H PRN PRN Reason: PAIN Last Admin: 09/25/17 08:03 Dose: 50 mg Ziprasidone (Geodon -) 40 mg PO BID [facility] Last Admin: 09/25/17 09:45 Dose: 40 mg Constitutional: Yes: Awake, alert, NAD Cardiovascular: Yes: WNL Respiratory: Yes: Diminished, On Nasal O2 Gastrointestinal: Yes: Abdomen, Obese, Hypoactive Bowel Sounds, Other ( laparascopic sites c/d/i) Extremities: Yes: Other (Dry erythematous skin bilateral feet, chronic as per pt. Ext warm, normal peripheral pulses) Neurological: Yes: WNL Labs: Laboratory Results - last 24 hr 09/24/17 09/24/17 09/24/17 09:30 11:44 23:59 WBC RBC Hgb Hct MCV MCH MCHC RDW Plt Count MPV Neutrophils % Lymphocytes % Monocytes % Eosinophils % Basophils % Sodium 140 Potassium 4.0 Chloride 108 H Carbon Dioxide 23 Anion Gap 9 BUN 15 D Creatinine 1.0 D Creat Clearance w eGFR 56.56 POC Glucometer [phone] Random Glucose 183 H Calcium 8.8 Total Bilirubin 0.4 AST 27 ALT 37 Alkaline Phosphatase 124 H D Total Protein 6.4 Albumin 3.4 09/25/17 09/25/17 09/25/17 05:48 06:00 06:00 WBC 11.8 H D RBC 3.94 Hgb 11.5 Hct 34.3 MCV 87.0 MCH 29.3 MCHC 33.6 RDW 14.3 Plt Count 181 MPV 8.7 Neutrophils % 83.1 H D Lymphocytes % 9.7 D Monocytes % 6.7 Eosinophils % 0.0 D Basophils % 0.5 Sodium 143 Potassium 3.8 Chloride 107 Carbon Dioxide 24 Anion Gap 12 BUN 14 Creatinine 1.1 H Creat Clearance w eGFR 50.67 POC Glucometer 165.89439 Random Glucose 149 H Calcium 8.5 Total Bilirubin 0.5 D AST 18 D ALT 27 D Alkaline Phosphatase 107 Total Protein 6.0 L Albumin 3.1 L Problem List - Problems (1) Abdominal wall hernia Code(s): K43.9 - VENTRAL HERNIA WITHOUT OBSTRUCTION OR GANGRENE (2) Diabetes mellitus type 2, insulin dependent Code(s): E11.9 - TYPE 2 DIABETES MELLITUS WITHOUT COMPLICATIONS; Z79.4 - [employer]ING [employer] (CURRENT) USE OF INSULIN (3) Obstructive sleep apnea on CPAP Code(s): G47.33 - OBSTRUCTIVE SLEEP APNEA (ADULT) (PEDIATRIC) Assessment/Plan POD #1 Laparoscopic incarcerated incsional ventral hernia repair COPD on home O2 Severe OSAS on CPAP @ 11 cmH2O DM HTN Breast CA Morbid Obesity Incentive Spirometry O2 as needed CPAP @ 11 cm H2O QHS and PRN VTE prophylaxis PAin control PO per surgery 4S/4W monitoring Dr Hemphill Critical care time spent in reviewing chart, evaluating patient and formulating plan - 36 minutes. Problem List - Problems (1) Abdominal pain Code(s): R10.9 - UNSPECIFIED ABDOMINAL PAIN Qualifiers: Abdominal location: periumbilical Qualified Code(s): R10.33 - Periumbilical pain (2) Abdominal wall hernia Code(s): K43.9 - VENTRAL HERNIA WITHOUT OBSTRUCTION OR GANGRENE (3) Diabetes mellitus type 2, insulin dependent Code(s): E11.9 - TYPE 2 DIABETES MELLITUS WITHOUT COMPLICATIONS; Z79.4 - HALF-WAY (CURRENT) USE OF INSULIN (4) Morbid obesity with BMI of 40.0-44.9, adult Code(s): E66.01 - MORBID (SEVERE) OBESITY DUE TO EXCESS CALORIES; Z68.41 - BODY MASS INDEX (BMI) 40.0-44.9, ADULT (5) Schizoaffective disorder, bipolar type Code(s): F25.0 - SCHIZOAFFECTIVE DISORDER, BIPOLAR TYPE (6) Breast CA Code(s): C50.919 - MALIGNANT NEOPLASM OF UNSP SITE OF UNSPECIFIED FEMALE BREAST Qualifiers: Breast location: unspecified site of breast (7) COPD (chronic obstructive pulmonary disease) Code(s): J44.9 - CHRONIC OBSTRUCTIVE PULMONARY DISEASE, UNSPECIFIED Qualifiers: COPD type: unspecified COPD Qualified Code(s): J44.9 - Chronic obstructive pulmonary disease, unspecified (8) Hyperlipidemia Code(s): E78.5 - HYPERLIPIDEMIA, UNSPECIFIED Qualifiers: Hyperlipidemia type: pure hypercholesterolemia Qualified Code(s): E78.00 - Pure hypercholesterolemia, unspecified; E78.0 - Pure hypercholesterolemia (9) Hypertension Code(s): I10 - ESSENTIAL (PRIMARY) HYPERTENSION Qualifiers: Hypertension type: essential hypertension Qualified Code(s): I10 - Essential (primary) hypertension (10) Hypothyroidism Code(s): E03.9 - HYPOTHYROIDISM, UNSPECIFIED Qualifiers: Hypothyroidism type: unspecified Qualified Code(s): E03.9 - Hypothyroidism , unspecified (11) Obstructive sleep apnea on CPAP Code(s): G47.33 - OBSTRUCTIVE SLEEP APNEA (ADULT) (PEDIATRIC) (12) Schizophrenia Code(s): F20.9 - SCHIZOPHRENIA, UNSPECIFIED Qualifiers: Schizophrenia type: unspecified Qualified Code(s): F20.9 - Schizophrenia, unspecified
--- NOTE | 2017-09-25 13:09 | PN ---
Physical Exam: SUBJECTIVE: Patient seen and examined. sitting comfortably in bed. States she was diagnosed with sleep apnea but was advised to use cpap. Denies chest pain, nuasea, vomiting, no bowel movements. Complains of pain in right leg, will get duplex scan. complain of at portsite. OBJECTIVE: Vital Signs Period Temp Pulse Resp BP Sys/Barclay Pulse Ox Last 24 Hr 97.6 F-99.7 F 57-81 10-22 113-168/69-96 95-99 GENERAL: The patient is awake, alert, and fully oriented, in no acute distress. HEAD: Normal with no signs of trauma. ENT: moist mucous membranes. NECK: Trachea midline, full range of motion, supple. LUNGS: Breath sounds equal, clear to auscultation bilaterally, no wheezes, HEART:s1s2n ABDOMEN: Soft, tender at port site, nondistended, normoactive bowel sounds, no guarding, no rebound, dressing in situ EXTREMITIES: edema present PSYCH: Normal mood, normal affect. SKIN: Warm, dry, Laboratory Results - last 24 hr 09/24/17 09/25/17 09/25/17 23:59 05:48 06:00 WBC 11.8 H D RBC 3.94 Hgb 11.5 Hct 34.3 MCV 87.0 MCH 29.3 MCHC 33.6 RDW 14.3 Plt Count 181 MPV 8.7 Neutrophils % 83.1 H D Lymphocytes % 9.7 D Monocytes % 6.7 Eosinophils % 0.0 D Basophils % 0.5 Sodium Potassium Chloride Carbon Dioxide Anion Gap BUN Creatinine Creat Clearance w eGFR POC Glucometer [phone] Random Glucose Calcium Total Bilirubin AST ALT Alkaline Phosphatase Total Protein Albumin 09/25/17 06:00 WBC RBC Hgb Hct MCV MCH MCHC RDW Plt Count MPV Neutrophils % Lymphocytes % Monocytes % Eosinophils % Basophils % Sodium 143 Potassium 3.8 Chloride 107 Carbon Dioxide 24 Anion Gap 12 BUN 14 Creatinine 1.1 H Creat Clearance w eGFR 50.67 POC Glucometer Random Glucose 149 H Calcium 8.5 Total Bilirubin 0.5 D AST 18 D ALT 27 D Alkaline Phosphatase 107 Total Protein 6.0 L Albumin 3.1 L Active Medications Generic Name Dose Route Start Last Admin Trade Name Freq PRN Reason Stop Dose Admin Albuterol Sulfate 1 amp 09/25/17 05:54 09/25/17 10:40 Ventolin 0.083% Nebulizer Soln - NEB 1 amp Q4H PRN Administration SHORT OF BREATH/WHEEZING Buspirone HCl 15 mg 09/24/17 22:00 09/25/17 06:22 Buspar - PO 15 mg TID ANDREA Administration Lactated Ringer's 1,000 ml in 1,000 mls @ 125 mls/hr 09/24/17 17:55 09/25/17 08:12 Lactated Ringers Solution IV 125 mls/hr ASDIR ANDREA Administration Insulin Aspart 1 vial 09/25/17 07:00 09/25/17 12:24 Novolog Vial Sliding Scale - SQ 4 units TIDAC ANDREA Administration Protocol Ketoconazole 1 applic 09/25/17 08:30 Nizoral 2% Cream - TP DAILY ANDREA Levothyroxine Sodium 300 mcg 09/25/17 07:00 09/25/17 06:24 Synthroid - PO 300 mcg ACBK ANDREA Administration Lorazepam 2 mg 09/24/17 17:55 Ativan - PO HS PRN ANXIETY Lorazepam 1 mg 09/24/17 17:55 Ativan Injection - IVPUSH Q8H PRN ANXIETY Morphine Sulfate 4 mg 09/24/17 21:37 09/25/17 03:06 Morphine Sulfate IVPUSH 4 mg Q3H PRN Administration SEVERE PAIN Ondansetron HCl 4 mg 09/24/17 17:55 Zofran Injection IVPB Q4H PRN NAUSEA Pantoprazole Sodium 40 mg 09/25/17 10:00 09/25/17 09:47 Protonix Iv IVPUSH 40 mg DAILY ANDREA Administration Quetiapine Fumarate 800 mg 09/24/17 22:00 09/24/17 22:07 Seroquel - PO 800 mg HS ANDREA Administration Quinapril HCl 10 mg 09/24/17 20:41 09/25/17 09:44 Accupril - PO 10 mg DAILY ANDREA Administration Tramadol HCl 50 mg 09/24/17 17:55 09/25/17 08:03 Ultram - PO 50 mg Q8H PRN Administration PAIN Ziprasidone 40 mg 09/24/17 22:00 09/25/17 09:45 Geodon - PO 40 mg BID ANDREA Administration ASSESSMENT/PLAN: Laparoscopic incarcerated incsional ventral hernia repair POD 1 COPD on home O2 slep apnea DM HTN Breast CA Morbid Obesity plan. CPAP @ 11 cmH2O Incentive Spirometry O2 as needed Pain control diet as per surgery on diabetic diet. DVt prophylaxis. synthyroid 300mcg po. transfer to tele. Visit type - Emergency Visit Emergency Visit: Yes ED Registration Date: 09/23/17 Care time: The patient presented to the Emergency Department on the above date and was hospitalized for further evaluation of their emergent condition. - New Patient This patient is new to me today: Yes Date on this admission: 09/25/17 - Critical Care Critical Care patient: Yes Total Critical Care Time (in minutes): 45 Critical Care Statement: The care of this patient involved high complexity decision making to prevent further life threatening deterioration of the patient 's condition and/or to evaluate & treat vital organ system(s) failure or risk of failure.
[2017-09-25] MEDS: KETOCONAZOLE 2% CREAM - 60GM TUBE TP SCH ×2 (14:52→14:53)
--- NOTE | 2017-09-25 15:54 | PN ---
Progress Note (short form) - Note Progress Note: Anesthesia POD#1 S/P Laproscopic Incisional hernia Repar under GA VSS,using incentive spirometry,experienced nausea yesterday. pain is contolled. No complications to anesthesia seen. Kathryn Casey MD.
[2017-09-25] MEDS ORDERED: LORazepam 2 MG/ML SDV VIAL IVPUSH PRN (19:54)
[2017-09-25] MEDS ORDERED: ONDANSETRON 4 MG/2 ML VIAL IVPB PRN (19:54)
[2017-09-25] MEDS ORDERED: LORazepam 1 MG TABLET PO PRN (19:54)
[2017-09-25] MEDS ORDERED: KETOROLAC TROMETHAMINE 30 MG/1 ML VIAL IVPUSH ONE (19:54)
[2017-09-25] MEDS ORDERED: morphine SULFATE 4 MG/ML VIAL IVPUSH PRN (19:54)
[2017-09-25] MEDS: QUEtiapine FUMARATE 200 MG TABLET PO SCH (21:31)
[2017-09-25] MEDS: KETOCONOZOLE 2% TOPICAL CREAM 15 GM TUBE TP SCH (21:41)
[2017-09-26] MEDS: LEVOTHYROXINE NA 150 MCG TABLET PO SCH (06:42)
[2017-09-26] MEDS: busPIRone HCL 5 MG TABLET PO SCH ×3 (06:43→21:57)
--- NOTE | 2017-09-26 06:54 | PN ---
Progress Note, Physician Chief Complaint: painful abdominal hernia History of Present Illness: s/p laparoscopic repair of incarcerated supraumbilical incisional hernia POD 2 61 yo female PMH HTN, COPD on CPAP, s/p lap cholecystectomy developed a periumbilical incarcerated hernia, She reports only mild pain in the umbilical area. She did not sleep well because her CPAP was alarming. She was eating breakfast in near-seated position on telemetry unit. She also complained of some calf pain yesterday, duplex ruled out DVT. - Current Medication List Current Medications: Active Medications Albuterol Sulfate (Ventolin 0.083% Nebulizer Soln -) 1 amp NEB Q4H PRN PRN Reason: SHORT OF BREATH/WHEEZING Buspirone HCl (Buspar -) 15 mg PO TID [facility] Last Admin: 09/26/17 06:43 Dose: 15 mg Insulin Aspart (Novolog Vial Sliding Scale -) 1 vial SQ TIDAC [facility] PRN Reason: Protocol Ketoconazole (Nizoral 2% Cream -) 1 applic TP DAILY [facility] Last Admin: 09/25/17 21:41 Dose: 1 applic Levothyroxine Sodium (Synthroid -) 300 mcg PO ACBK [facility] Last Admin: 09/26/17 06:42 Dose: 300 mcg Lorazepam (Ativan -) 2 mg PO HS PRN PRN Reason: ANXIETY Lorazepam (Ativan Injection -) 1 mg IVPUSH Q8H PRN PRN Reason: ANXIETY Morphine Sulfate (Morphine Sulfate) 4 mg IVPUSH Q3H PRN PRN Reason: SEVERE PAIN Ondansetron HCl (Zofran Injection) 4 mg IVPB Q4H PRN PRN Reason: NAUSEA Pantoprazole Sodium (Protonix Iv) 40 mg IVPUSH DAILY [facility] Quetiapine Fumarate (Seroquel -) 800 mg PO HS [facility] Last Admin: 09/25/17 21:31 Dose: 800 mg Quinapril HCl (Accupril -) 10 mg PO DAILY [facility] Tramadol HCl (Ultram -) 50 mg PO Q8H PRN PRN Reason: PAIN Ziprasidone (Geodon -) 40 mg PO BID [facility] Last Admin: 09/25/17 21:29 Dose: 40 mg - Objective Vital Signs: Vital Signs Temperature 97.6 F 09/26/17 01:00 Pulse Rate 74 09/26/17 01:00 Respiratory Rate 20 09/26/17 01:00 Blood Pressure 125/63 09/26/17 01:00 O2 Sat by Pulse Oximetry (%) 96 09/25/17 21:00 Vital Signs Period Temp Pulse Resp BP Sys/Barclay Pulse Ox Last 24 Hr 97.6 F-99 F 68-80 13-22 125-152/63-93 96-97 Constitutional: Yes: Well Nourished, No Distress, Obese Eyes: Yes: Conjunctiva Clear, EOM Intact HENT: Yes: Atraumatic, Normocephalic Neck: Yes: Supple, Trachea Midline Respiratory: Yes: Regular, CTA Bilaterally, Other (scant foamy sputum). No: Rhonchi, SOB Gastrointestinal: Yes: Soft, Abdomen, Obese, Hypoactive Bowel Sounds Extremities: No: Cool, Cyanosis Integumentary: Yes: Incision (X4) Wound/Incision: Yes: Clean/Dry, Well Approximated, Steri Strips, Dressing Removed. No: Draining Neurological: Yes: Alert, Oriented Psychiatric: Yes: Alert, Oriented Labs: CBC, [facility] 09/25/17 06:00 INR, PTT INR 0.95 (0.82-1.09) 09/22/17 16:40 CBC, [facility] 09/26/17 06:00 09/26/17 06:00 Problem List - Problems (1) Incisional hernia of anterior abdominal wall without obstruction or gangrene Assessment/Plan: POD1 s/p Lap incisional hernia repair with mesh She is stable postoperatively, tolerating diet, no flatus reported yet dressings removed, may shower OOB/ to chair adequate analgesia continue IS Replete electrolytes (Mg, etc) consider additional IVF hydration Code(s): K43.2 - INCISIONAL HERNIA WITHOUT OBSTRUCTION OR GANGRENE (2) COPD (chronic obstructive pulmonary disease) Code(s): J44.9 - CHRONIC OBSTRUCTIVE PULMONARY DISEASE, UNSPECIFIED Qualifiers: COPD type: unspecified COPD Qualified Code(s): J44.9 - Chronic obstructive pulmonary disease, unspecified (3) Morbid obesity with BMI of 40.0-44.9, adult Code(s): E66.01 - MORBID (SEVERE) OBESITY DUE TO EXCESS CALORIES; Z68.41 - BODY MASS INDEX (BMI) 40.0-44.9, ADULT (4) Calf pain Assessment/Plan: r/o DVT bilateral LE duplex negative continue DVT prohylaxsis Code(s): M79.669 - PAIN IN UNSPECIFIED LOWER LEG (5) Incarcerated umbilical hernia Code(s): K42.0 - UMBILICAL HERNIA WITH OBSTRUCTION, WITHOUT GANGRENE (6) Obstructive sleep apnea on CPAP Assessment/Plan: continue CPAP and IS Code(s): G47.33 - OBSTRUCTIVE SLEEP APNEA (ADULT) (PEDIATRIC)
[2017-09-26 07:40] LABS: BASOPHIL 0.8 % (0-2.0); EOSINOPHIL 3.5 % (0-4.5); MCH 29.2 pg (25.7-33.7); MCHC 32.9 g/dl (32.0-36.0); MEAN CELL VOLUME 88.6 fl (80-96); MEAN PLT VOLUME 7.8 fl (7.5-11.1); NEUTROPHILS 67.3 % (42.8-82.8); PLATELET COUNT 166 K/MM3 (134-434); RDW 14.6 % (11.6-15.6); WHITE BLOOD COUNT 9.4 K/mm3 (4.0-10.0)
[2017-09-26 08:05] LABS: ANION GAP 12 (8-16); CALCIUM 8.5 mg/dL (8.5-10.1); CO2 24 mmol/L (21-32); CREATININE 1.2 mg/dL (0.55-1.02); GLUCOSE,RANDOM 155 mg/dL (74-106); MAGNESIUM 1.4 mg/dL (1.8-2.4)
[2017-09-26] MEDS: INSULIN SLIDING SCALE (NOVOLOG) 1 VIAL SQ SCH ×3 (08:08→17:39)
[2017-09-26] MEDS ORDERED: PT OWN MED DRAWER 7, Y5N ONE ×2 (09:39→21:17)
[2017-09-26] MEDS: ZIPRASIDONE 40 MG CAPSULE (FP) PO SCH ×2 (10:39→21:57)
[2017-09-26] MEDS: QUINAPRIL HCL 10 MG TABLET (FP) PO SCH (10:39)
[2017-09-26] MEDS: PANTOPRAZOLE SODIUM 40 MG VIAL IVPUSH SCH (10:40)
--- NOTE | 2017-09-26 10:57 | PN ---
Progress Note (short form) - Note Progress Note: Chief Complaint: Events noted, notes reviewed, denies any chest pain or dyspnea , reports being tired related to lack of sleep History of Present Illness: Seen and examined on telemetry. Events noted, notes reviewed, denies any chest pain or dyspnea, reports being tired related to lack of sleep Echocardiography dated 09/23/2017 revealed normal LV size and function, mild MR and trace TR - Current Medication List Current Medications Albuterol Sulfate (Ventolin 0.083% Nebulizer Soln -) 1 amp NEB Q4H PRN PRN Reason: SHORT OF BREATH/WHEEZING Buspirone HCl (Buspar -) 15 mg PO TID [facility] Last Admin: 09/26/17 06:43 Dose: 15 mg Insulin Aspart (Novolog Vial Sliding Scale -) 1 vial SQ TIDAC [facility] PRN Reason: Protocol Last Admin: 09/26/17 08:08 Dose: 2 units Ketoconazole (Nizoral 2% Cream -) 1 applic TP DAILY [facility] Last Admin: 09/25/17 21:41 Dose: 1 applic Levothyroxine Sodium (Synthroid -) 300 mcg PO ACBK [facility] Last Admin: 09/26/17 06:42 Dose: 300 mcg Lorazepam (Ativan -) 2 mg PO HS PRN PRN Reason: ANXIETY Lorazepam (Ativan Injection -) 1 mg IVPUSH Q8H PRN PRN Reason: ANXIETY Morphine Sulfate (Morphine Sulfate) 4 mg IVPUSH Q3H PRN PRN Reason: SEVERE PAIN Ondansetron HCl (Zofran Injection) 4 mg IVPB Q4H PRN PRN Reason: NAUSEA Pantoprazole Sodium (Protonix Iv) 40 mg IVPUSH DAILY [facility] Last Admin: 09/26/17 10:40 Dose: 40 mg Quetiapine Fumarate (Seroquel -) 800 mg PO HS [facility] Last Admin: 09/25/17 21:31 Dose: 800 mg Quinapril HCl (Accupril -) 10 mg PO DAILY [facility] Last Admin: 09/26/17 10:39 Dose: 10 mg Tramadol HCl (Ultram -) 50 mg PO Q8H PRN PRN Reason: PAIN Ziprasidone (Geodon -) 40 mg PO BID [facility] Last Admin: 09/26/17 10:39 Dose: 40 mg Review of Systems Constitutional: denies Chills or Fever Respiratory: denies Cough or Sputum Production Cardiovascular: As noted above Gastrointestinal: denies Nausea, Vomiting, Diarrhea, Constipation or Abdominal Pain Genitourinary: No Symptoms Reported Musculoskeletal: No Symptoms Reported - Objective Vital Signs: Last Vital Signs Temp Pulse Resp BP Pulse Ox 98.9 F 68 20 134/75 96 09/26/17 06:00 09/26/17 06:00 09/26/17 06:00 09/26/17 06:00 09/25/17 21:00 Intake & Output 09/23/17 09/24/17 09/25/17 09/26/17 23:59 23:59 23:59 23:59 Intake Total 665 3050 2475 Output Total 855 1450 Balance 665 2195 1025 Weight 359 lb 3 oz Constitutional: No Distress, Calm Neck: Supple Negative JVD NO Bruit Cardiovascular: S1 S2 Regular Rate and Rhythm Respiratory: Diminished at the Bases Gastrointestinal: Soft Benign Normal Bowel Sounds Ext: Edema Labs: CBC, BMP 09/26/17 06:00 09/26/17 06:00 Hepatic Panel Total Bilirubin 0.5 mg/dL (0.2-1.0) D 09/25/17 06:00 AST 18 U/L (15-37) D 09/25/17 06:00 ALT 27 U/L (12-78) D 09/25/17 06:00 Alkaline Phosphatase 107 U/L (45-117) 09/25/17 06:00 Albumin 3.1 g/dl (3.4-5.0) L 09/25/17 06:00 Assessment/Plan ASSESSMENT: 1. POD#2 post laparoscopic ventral hernia repair 2. HTN/HCVD 3. DM 4. Hyperlipidemia 5. Hypothyroidism 6. COPD on home O2 therapy 7. Severe SHELL 8. Schizophrenia 9. History of breast CA PLAN: 1. Resume ASA, unless it is contraindicated 2. Continue Accupril 3. Continue Crestor 4. Ambulate 5. Continue cPAP nightly Shanti Gaines M.D.
[2017-09-26] MEDS: traMADol HCL 50 MG TABLET PO PRN ×2 (12:15→19:59)
--- NOTE | 2017-09-26 12:34 | PN ---
Progress Note (short form) - Note Progress Note: Pt seen/ examined feels ok not liking cpap going to get cpap - from home. tolerating diet passing gas Vital Signs Temp 98.1 F 09/26/17 08:00 Pulse 80 09/26/17 08:00 Resp 18 09/26/17 08:00 BP 139/72 09/26/17 08:00 Pulse Ox 93 L 09/26/17 11:27 Intake & Output 09/25/17 09/26/17 09/26/17 23:59 11:59 23:59 Intake Total 1350 Output Total 1050 Balance 300 Intake: IV 1000 LACTATED RINGERS SOLUTION 1000 1,000 ml In 1,000 ml @ 125 mls/hr IV ASDIR [facility] Rx#:[id number] Oral 350 Output: Urine 1050 Hu 800 Void 250 Other: Voiding Method Toilet Toilet Active Medications Albuterol Sulfate (Ventolin 0.083% Nebulizer Soln -) 1 amp NEB Q4H PRN PRN Reason: SHORT OF BREATH/WHEEZING Buspirone HCl (Buspar -) 15 mg PO TID [facility] Last Admin: 09/26/17 06:43 Dose: 15 mg Insulin Aspart (Novolog Vial Sliding Scale -) 1 vial SQ TIDAC [facility] PRN Reason: Protocol Last Admin: 09/26/17 12:15 Dose: 4 units Ketoconazole (Nizoral 2% Cream -) 1 applic TP DAILY [facility] Last Admin: 09/25/17 21:41 Dose: 1 applic Levothyroxine Sodium (Synthroid -) 300 mcg PO ACBK [facility] Last Admin: 09/26/17 06:42 Dose: 300 mcg Lorazepam (Ativan -) 2 mg PO HS PRN PRN Reason: ANXIETY Lorazepam (Ativan Injection -) 1 mg IVPUSH Q8H PRN PRN Reason: ANXIETY Magnesium Sulfate (Magnesium Sulfate) 2 gm IVPB ONCE ONE Stop: 09/26/17 12:34 Morphine Sulfate (Morphine Sulfate) 4 mg IVPUSH Q3H PRN PRN Reason: SEVERE PAIN Ondansetron HCl (Zofran Injection) 4 mg IVPB Q4H PRN PRN Reason: NAUSEA Pantoprazole Sodium (Protonix Iv) 40 mg IVPUSH DAILY [facility] Last Admin: 09/26/17 10:40 Dose: 40 mg Quetiapine Fumarate (Seroquel -) 800 mg PO HS [facility] Last Admin: 09/25/17 21:31 Dose: 800 mg Quinapril HCl (Accupril -) 10 mg PO DAILY [facility] Last Admin: 09/26/17 10:39 Dose: 10 mg Tramadol HCl (Ultram -) 50 mg PO Q8H PRN PRN Reason: PAIN Last Admin: 09/26/17 12:15 Dose: 50 mg Ziprasidone (Geodon -) 40 mg PO BID [facility] Last Admin: 09/26/17 10:39 Dose: 40 mg CBC, BMP 09/26/17 06:00 09/26/17 06:00 Physical Exam. Constitutional: Yes: No Distress, comfortable Cardiovascular: Yes: Regular Rate and Rhythm. Respiratory: Yes: CTA Bilaterally Gastrointestinal: Yes: Normal Bowel Sounds, Soft, Abdomen, Obese, Tenderness ( umbilical hernia). No: Distention Edema: No Problem List - Problems (1) Incarcerated umbilical hernia Code(s): K42.0 - UMBILICAL HERNIA WITH OBSTRUCTION, WITHOUT GANGRENE (2) Abdominal pain Code(s): R10.9 - UNSPECIFIED ABDOMINAL PAIN Qualifiers: Abdominal location: periumbilical Qualified Code(s): R10.33 - Periumbilical pain (3) Abdominal wall hernia Code(s): K43.9 - VENTRAL HERNIA WITHOUT OBSTRUCTION OR GANGRENE (4) Schizoaffective disorder, bipolar type Code(s): F25.0 - SCHIZOAFFECTIVE DISORDER, BIPOLAR TYPE (5) COPD (chronic obstructive pulmonary disease) Code(s): J44.9 - CHRONIC OBSTRUCTIVE PULMONARY DISEASE, UNSPECIFIED Qualifiers: COPD type: unspecified COPD Qualified Code(s): J44.9 - Chronic obstructive pulmonary disease, unspecified (6) Obstructive sleep apnea on CPAP Code(s): G47.33 - OBSTRUCTIVE SLEEP APNEA (ADULT) (PEDIATRIC) (7) Schizophrenia Code(s): F20.9 - SCHIZOPHRENIA, UNSPECIFIED Qualifiers: Schizophrenia type: unspecified Qualified Code(s): F20.9 - Schizophrenia, unspecified Assessment/Plan pod #2 clinically stable meds reviewed continue present care. pain control dvt prophylaxis mood stable monitor bgm. daily oob - chair physical therapy will follow.
[2017-09-26] MEDS ORDERED: MAGNESIUM SULF 50% (8.12 MEQ/2 ML-1 GM VIAL) IVPB ONE (13:15)
[2017-09-26] MEDS: ALBUTEROL SO4 0.083% IH SOL 2.5 MG/3 ML VIAL.NEB. NEB PRN ×3 (13:50→21:35)
--- NOTE | 2017-09-26 15:09 | PN ---
Progress Note (short form) - Note Progress Note: PULMONARY Does not like hospital BiPAP. Denies shortness of breath. Last Vital Signs Temp Pulse Resp BP Pulse Ox 98.1 F 80 18 139/72 93 L 09/26/17 08:00 09/26/17 08:00 09/26/17 08:00 09/26/17 08:00 09/26/17 11:27 Gen: NAD at rest Heart: RRR Lung: decreased breath sounds at the bases Abd: soft, obese, nontender Ext: + edema CBC, BMP 09/26/17 06:00 09/26/17 06:00 Active Medications Albuterol Sulfate (Ventolin 0.083% Nebulizer Soln -) 1 amp NEB Q4H PRN PRN Reason: SHORT OF BREATH/WHEEZING Last Admin: 09/26/17 13:50 Dose: 1 amp Buspirone HCl (Buspar -) 15 mg PO TID [facility] Last Admin: 09/26/17 06:43 Dose: 15 mg Insulin Aspart (Novolog Vial Sliding Scale -) 1 vial SQ TIDAC [facility] PRN Reason: Protocol Last Admin: 09/26/17 12:15 Dose: 4 units Ketoconazole (Nizoral 2% Cream -) 1 applic TP DAILY [facility] Last Admin: 09/25/17 21:41 Dose: 1 applic Levothyroxine Sodium (Synthroid -) 300 mcg PO ACBK [facility]S [facility] Last Admin: 09/26/17 06:42 Dose: 300 mcg Lorazepam (Ativan -) 2 mg PO HS PRN PRN Reason: ANXIETY Lorazepam (Ativan Injection -) 1 mg IVPUSH Q8H PRN PRN Reason: ANXIETY Morphine Sulfate (Morphine Sulfate) 4 mg IVPUSH Q3H PRN PRN Reason: SEVERE PAIN Ondansetron HCl (Zofran Injection) 4 mg IVPB Q4H PRN PRN Reason: NAUSEA Pantoprazole Sodium (Protonix Iv) 40 mg IVPUSH DAILY [facility] Last Admin: 09/26/17 10:40 Dose: 40 mg Quetiapine Fumarate (Seroquel -) 800 mg PO HS [facility] 234 [facility]S [facility] Last Admin: 09/25/17 21:31 Dose: 800 mg Quinapril HCl (Accupril -) 10 mg PO DAILY [facility] Last Admin: 09/26/17 10:39 Dose: 10 mg Tramadol HCl (Ultram -) 50 mg PO Q8H PRN PRN Reason: PAIN Last Admin: 09/26/17 12:15 Dose: 50 mg Ziprasidone (Geodon -) 40 mg PO BID [facility] Last Admin: 09/26/17 10:39 Dose: 40 mg A/P s/p Laparoscopic Ventral Hernia Repair Morbid Obesity Severe SHELL COPD Chronic Hypoxic Respiratory Failure HTN DM Hyperlipidemia Hypothyroidism - inhaled bronchodilators - O2 to keep Spo2 >90% - pain control - incentive spirometry - family to bring in pt's CPAP device - DVT prophylaxis
[2017-09-26] MEDS: KETOCONOZOLE 2% TOPICAL CREAM 15 GM TUBE TP SCH (15:13)
[2017-09-26] MEDS: QUEtiapine FUMARATE 200 MG TABLET PO SCH (21:57)
[2017-09-27] MEDS: traMADol HCL 50 MG TABLET PO PRN (06:19)
[2017-09-27] MEDS: busPIRone HCL 5 MG TABLET PO SCH ×3 (06:20→23:06)
[2017-09-27] MEDS: LEVOTHYROXINE NA 150 MCG TABLET PO SCH (06:20)
--- NOTE | 2017-09-27 07:03 | PN ---
Progress Note, Physician Chief Complaint: painful abdominal hernia History of Present Illness: s/p laparoscopic repair of incarcerated supraumbilical incisional hernia POD 3 61 yo female PMH HTN, COPD on CPAP, s/p lap cholecystectomy developed a periumbilical incarcerated hernia, She reports only mild pain in the umbilical area but is much improved. She reports flatus nut no BM. She is out of bed and mobile, was on the commode when I entered. - Current Medication List Current Medications: Active Medications Albuterol Sulfate (Ventolin 0.083% Nebulizer Soln -) 1 amp NEB Q4H PRN PRN Reason: SHORT OF BREATH/WHEEZING Last Admin: 09/26/17 21:35 Dose: 1 amp Buspirone HCl (Buspar -) 15 mg PO TID [facility] Last Admin: 09/27/17 06:20 Dose: 15 mg Insulin Aspart (Novolog Vial Sliding Scale -) 1 vial SQ TIDAC [facility] PRN Reason: Protocol Last Admin: 09/26/17 17:39 Dose: 2 units Ketoconazole (Nizoral 2% Cream -) 1 applic TP DAILY [facility] Last Admin: 09/26/17 15:13 Dose: 1 applic Levothyroxine Sodium (Synthroid -) 300 mcg PO ACBK [facility] Last Admin: 09/27/17 06:20 Dose: 300 mcg Lorazepam (Ativan -) 2 mg PO HS PRN PRN Reason: ANXIETY Lorazepam (Ativan Injection -) 1 mg IVPUSH Q8H PRN PRN Reason: ANXIETY Morphine Sulfate (Morphine Sulfate) 4 mg IVPUSH Q3H PRN PRN Reason: SEVERE PAIN Ondansetron HCl (Zofran Injection) 4 mg IVPB Q4H PRN PRN Reason: NAUSEA Pantoprazole Sodium (Protonix Iv) 40 mg IVPUSH DAILY [facility] Last Admin: 09/26/17 10:40 Dose: 40 mg Quetiapine Fumarate (Seroquel -) 800 mg PO HS [facility] Last Admin: 09/26/17 21:57 Dose: 800 mg Quinapril HCl (Accupril -) 10 mg PO DAILY [facility] Last Admin: 09/26/17 10:39 Dose: 10 mg Tramadol HCl (Ultram -) 50 mg PO Q8H PRN PRN Reason: PAIN Last Admin: 09/27/17 06:19 Dose: 50 mg Ziprasidone (Geodon -) 40 mg PO BID [facility] Last Admin: 09/26/17 21:57 Dose: 40 mg - Objective Vital Signs: Vital Signs Temperature 97.8 F 09/27/17 06:00 Pulse Rate 68 09/27/17 06:00 Respiratory Rate 20 09/27/17 06:00 Blood Pressure 144/88 09/27/17 06:00 O2 Sat by Pulse Oximetry (%) 94 L 09/26/17 21:00 Vital Signs Period Temp Pulse Resp BP Sys/Barclay Pulse Ox Last 24 Hr 97.8 F-99.2 F 68-80 18-20 113-144/54-92 93-94 Constitutional: Yes: Well Nourished, No Distress, Obese HENT: Yes: Atraumatic, Normocephalic Neck: Yes: Supple, Trachea Midline Respiratory: Yes: Regular, CTA Bilaterally Gastrointestinal: Yes: Normal Bowel Sounds, Soft, Abdomen, Obese, Other ( umbiical skin is hyperemic but not cellulitic no drainge seen) Genitourinary: No: CVA Tenderness - Left, CVA Tenderness - Right Extremities: No: Cool, Cyanosis Edema: No Integumentary: Yes: Incision Wound/Incision: Yes: Clean/Dry, Well Approximated (at the umbilicus), Steri Strips, Reddened (umbilical skin is slightly hyperemic). No: Draining Neurological: Yes: Alert, Oriented Psychiatric: Yes: Alert, Oriented Labs: CBC, BMP 09/26/17 06:00 09/26/17 06:00 INR, PTT INR 0.95 (0.82-1.09) 09/22/17 16:40 Problem List - Problems (1) Incisional hernia of anterior abdominal wall without obstruction or gangrene Assessment/Plan: POD 3 s/p Lap incisional hernia repair with mesh She is stable postoperatively, tolerating diet, flatus but no BM reported dressings removed, may shower OOB/ to chair adequate analgesia continue IS Possible D/C with in next 48hours Code(s): K43.2 - INCISIONAL HERNIA WITHOUT OBSTRUCTION OR GANGRENE (2) COPD (chronic obstructive pulmonary disease) Assessment/Plan: continue CPAP continue to encourage IS as tolerated seated position is better her breathing Code(s): J44.9 - CHRONIC OBSTRUCTIVE PULMONARY DISEASE, UNSPECIFIED Qualifiers: COPD type: unspecified COPD Qualified Code(s): J44.9 - Chronic obstructive pulmonary disease, unspecified (3) Morbid obesity with BMI of 40.0-44.9, adult Assessment/Plan: continue IS OOB with assistance Code(s): E66.01 - MORBID (SEVERE) OBESITY DUE TO EXCESS CALORIES; Z68.41 - BODY MASS INDEX (BMI) 40.0-44.9, ADULT (4) Calf pain Code(s): M79.669 - PAIN IN UNSPECIFIED LOWER LEG (5) Incarcerated umbilical hernia Code(s): K42.0 - UMBILICAL HERNIA WITH OBSTRUCTION, WITHOUT GANGRENE (6) Obstructive sleep apnea on CPAP Assessment/Plan: continue CPAP and IS Code(s): G47.33 - OBSTRUCTIVE SLEEP APNEA (ADULT) (PEDIATRIC)
[2017-09-27] MEDS: INSULIN SLIDING SCALE (NOVOLOG) 1 VIAL SQ SCH ×3 (07:42→17:42)
--- NOTE | 2017-09-27 08:39 | PN ---
Progress Note (short form) - Note Progress Note: Chief Complaint: Events noted, notes reviewed, complaining of persistent incisional discomfort, denies any chest pain or dyspnea History of Present Illness: Seen and examined on telemetry. Events noted, notes reviewed, complaining of persistent incisional discomfort, denies any chest pain or dyspnea Echocardiography dated 09/23/2017 revealed normal LV size and function, mild MR and trace TR - Current Medication List Current Medications Albuterol Sulfate (Ventolin 0.083% Nebulizer Soln -) 1 amp NEB Q4H PRN PRN Reason: SHORT OF BREATH/WHEEZING Last Admin: 09/26/17 21:35 Dose: 1 amp Buspirone HCl (Buspar -) 15 mg PO TID [facility] Last Admin: 09/27/17 06:20 Dose: 15 mg Insulin Aspart (Novolog Vial Sliding Scale -) 1 vial SQ TIDAC ANDREA PRN Reason: Protocol Last Admin: 09/27/17 07:42 Dose: 2 units Ketoconazole (Nizoral 2% Cream -) 1 applic TP DAILY [facility] Last Admin: 09/26/17 15:13 Dose: 1 applic Levothyroxine Sodium (Synthroid -) 300 mcg PO ACBK ANDREA Last Admin: 09/27/17 06:20 Dose: 300 mcg Lorazepam (Ativan -) 2 mg PO HS PRN PRN Reason: ANXIETY Lorazepam (Ativan Injection -) 1 mg IVPUSH Q8H PRN PRN Reason: ANXIETY Morphine Sulfate (Morphine Sulfate) 4 mg IVPUSH Q3H PRN PRN Reason: SEVERE PAIN Ondansetron HCl (Zofran Injection) 4 mg IVPB Q4H PRN PRN Reason: NAUSEA Last Admin: 09/27/17 07:33 Dose: 4 mg Pantoprazole Sodium (Protonix Iv) 40 mg IVPUSH DAILY [facility] Last Admin: 09/26/17 10:40 Dose: 40 mg Quetiapine Fumarate (Seroquel -) 800 mg PO HS ANDREA Last Admin: 09/26/17 21:57 Dose: 800 mg Quinapril HCl (Accupril -) 10 mg PO DAILY [facility] Last Admin: 09/26/17 10:39 Dose: 10 mg Tramadol HCl (Ultram -) 50 mg PO Q8H PRN PRN Reason: PAIN Last Admin: 09/27/17 06:19 Dose: 50 mg Ziprasidone (Geodon -) 40 mg PO BID ANDREA Last Admin: 09/26/17 21:57 Dose: 40 mg Review of Systems Constitutional: denies Chills or Fever Respiratory: denies Cough or Sputum Production Cardiovascular: As noted above Gastrointestinal: denies Nausea, Vomiting, Diarrhea, Constipation but reports Incisional Abdominal Discomfort Genitourinary: No Symptoms Reported Musculoskeletal: No Symptoms Reported - Objective Vital Signs: Last Vital Signs Temp Pulse Resp BP Pulse Ox 97.8 F 68 20 144/88 94 L 09/27/17 06:00 09/27/17 06:00 09/27/17 06:00 09/27/17 06:00 09/26/17 21:00 Intake & Output 09/24/17 09/25/17 09/26/17 09/27/17 23:59 23:59 23:59 23:59 Intake Total 3050 2475 400 Output Total 855 1450 Balance 2195 1025 400 Constitutional: No Distress, Calm Neck: Supple Negative JVD NO Bruit Cardiovascular: S1 S2 Regular Rate and Rhythm Respiratory: Diminished at the Bases Gastrointestinal: Soft Benign Normal Bowel Sounds Ext: Edema Labs: CBC, BMP 09/26/17 06:00 09/26/17 06:00 Hepatic Panel Total Bilirubin 0.5 mg/dL (0.2-1.0) D 09/25/17 06:00 AST 18 U/L (15-37) D 09/25/17 06:00 ALT 27 U/L (12-78) D 09/25/17 06:00 Alkaline Phosphatase 107 U/L (45-117) 09/25/17 06:00 Albumin 3.1 g/dl (3.4-5.0) L 09/25/17 06:00 Assessment/Plan ASSESSMENT: 1. POD#3 post laparoscopic ventral hernia repair 2. HTN/HCVD 3. DM 4. Hyperlipidemia 5. Hypothyroidism 6. COPD on home O2 therapy 7. Severe SHELL 8. Schizophrenia 9. History of breast CA PLAN: 1. Resume ASA, unless it is contraindicated 2. Continue Accupril 3. Continue Crestor 4. Ambulate 5. Continue cPAP nightly 6. May transfer to floor care from the cardiovascular point of view Shanti Gaines M.D.
[2017-09-27] MEDS ORDERED: PT OWN MED DRAWER 7, Y5N ONE ×2 (09:27→22:46)
[2017-09-27] MEDS: PANTOPRAZOLE SODIUM 40 MG VIAL IVPUSH SCH (09:43)
[2017-09-27] MEDS: ASPIRIN COATED 81 MG TABLET.EC PO SCH (09:43)
[2017-09-27] MEDS: ZIPRASIDONE 40 MG CAPSULE (FP) PO SCH ×2 (09:44→23:06)
[2017-09-27] MEDS: QUINAPRIL HCL 10 MG TABLET (FP) PO SCH (09:44)
[2017-09-27] MEDS: KETOCONOZOLE 2% TOPICAL CREAM 15 GM TUBE TP SCH (09:53)
--- NOTE | 2017-09-27 10:10 | PN ---
Progress Note (short form) - Note Progress Note: pt feels ok. tolerating diet using cpap machine from home denies pain-- ok/ tolerable. Vital Signs Temp 97.8 F 09/27/17 06:00 Pulse 68 09/27/17 06:00 Resp 20 09/27/17 06:00 BP 144/88 09/27/17 06:00 Pulse Ox 94 L 09/26/17 21:00 Intake & Output 09/26/17 09/26/17 09/27/17 11:59 23:59 11:59 Intake Total 400 Balance 400 Intake: Oral 400 Other: Voiding Method Toilet Toilet CBC, BMP 09/26/17 06:00 09/26/17 06:00 Active Medications Albuterol Sulfate (Ventolin 0.083% Nebulizer Soln -) 1 amp NEB Q4H PRN PRN Reason: SHORT OF BREATH/WHEEZING Last Admin: 09/26/17 21:35 Dose: 1 amp Aspirin (Ecotrin -) 81 mg PO DAILY [facility] Last Admin: 09/27/17 09:43 Dose: 81 mg Buspirone HCl (Buspar -) 15 mg PO TID [facility] Last Admin: 09/27/17 06:20 Dose: 15 mg Insulin Aspart (Novolog Vial Sliding Scale -) 1 vial SQ TIDAC ANDREA PRN Reason: Protocol Last Admin: 09/27/17 12:12 Dose: 2 units Insulin Detemir (Levemir Vial) 10 units SQ HS ANDREA Last Admin: 09/27/17 12:12 Dose: Not Given Ketoconazole (Nizoral 2% Cream -) 1 applic TP DAILY [facility] Last Admin: 09/27/17 09:53 Dose: 1 applic Levothyroxine Sodium (Synthroid -) 300 mcg PO ACBK [facility] Last Admin: 09/27/17 06:20 Dose: 300 mcg Lorazepam (Ativan -) 2 mg PO HS PRN PRN Reason: ANXIETY Lorazepam (Ativan Injection -) 1 mg IVPUSH Q8H PRN PRN Reason: ANXIETY Morphine Sulfate (Morphine Sulfate) 4 mg IVPUSH Q3H PRN PRN Reason: SEVERE PAIN Ondansetron HCl (Zofran Injection) 4 mg IVPB Q4H PRN PRN Reason: NAUSEA Last Admin: 09/27/17 07:33 Dose: 4 mg Pantoprazole Sodium (Protonix Iv) 40 mg IVPUSH DAILY [facility] Last Admin: 09/27/17 09:43 Dose: 40 mg Quetiapine Fumarate (Seroquel -) 800 mg PO HS [facility] Last Admin: 09/26/17 21:57 Dose: 800 mg Quinapril HCl (Accupril -) 10 mg PO DAILY [facility] Last Admin: 09/27/17 09:44 Dose: 10 mg Tramadol HCl (Ultram -) 50 mg PO Q8H PRN PRN Reason: PAIN Last Admin: 09/27/17 06:19 Dose: 50 mg Ziprasidone (Geodon -) 40 mg PO BID [facility] Last Admin: 09/27/17 09:44 Dose: 40 mg CBC, BMP 09/26/17 06:00 09/26/17 06:00 Physical Exam. Constitutional: Yes: No Distress, comfortable. Cardiovascular: Yes: Regular Rate and Rhythm. Respiratory: Yes: CTA Bilaterally Gastrointestinal: Yes: Normal Bowel Sounds, Soft, Abdomen, Obese, Tenderness ( umbilical hernia). No: Distention Edema: No Psych - calm Problem List - Problems (1) Incarcerated umbilical hernia Code(s): K42.0 - UMBILICAL HERNIA WITH OBSTRUCTION, WITHOUT GANGRENE (2) Abdominal pain Code(s): R10.9 - UNSPECIFIED ABDOMINAL PAIN Qualifiers: Abdominal location: periumbilical Qualified Code(s): R10.33 - Periumbilical pain (3) Abdominal wall hernia Code(s): K43.9 - VENTRAL HERNIA WITHOUT OBSTRUCTION OR GANGRENE (4) Schizoaffective disorder, bipolar type Code(s): F25.0 - SCHIZOAFFECTIVE DISORDER, BIPOLAR TYPE (5) COPD (chronic obstructive pulmonary disease) Code(s): J44.9 - CHRONIC OBSTRUCTIVE PULMONARY DISEASE, UNSPECIFIED Qualifiers: COPD type: unspecified COPD Qualified Code(s): J44.9 - Chronic obstructive pulmonary disease, unspecified (6) Obstructive sleep apnea on CPAP Code(s): G47.33 - OBSTRUCTIVE SLEEP APNEA (ADULT) (PEDIATRIC) (7) Schizophrenia Code(s): F20.9 - SCHIZOPHRENIA, UNSPECIFIED Qualifiers: Schizophrenia type: unspecified Qualified Code(s): F20.9 - Schizophrenia, unspecified Assessment/Plan pod #3 clinically stable meds reviewed continue present care. pain control dvt prophylaxis mood stable monitor bgm. start on basal insulin daily oob - chair discharge planning anticipate tomorrow discussed with surgeon also. will follow.
[2017-09-27] MEDS: INSULIN DETEMIR 100 UNITS/ML MDV SQ SCH ×2 (12:12→23:06)
--- NOTE | 2017-09-27 15:16 | PN ---
Progress Note (short form) - Note Progress Note: PULMONARY Used her personal CPAP last night with much improvement in sleep. Denies shortness of breath. +flatus but no BM. Last Vital Signs Temp Pulse Resp BP Pulse Ox 98.1 F 80 20 130/83 93 L 09/27/17 14:28 09/27/17 14:28 09/27/17 14:28 09/27/17 14:28 09/27/17 11:49 Gen: NAD at rest Heart: RRR Lung: decreased breath sounds at the bases Abd: soft, obese, nontender Ext: + edema CBC, BMP 09/26/17 06:00 09/26/17 06:00 Active Medications Albuterol Sulfate (Ventolin 0.083% Nebulizer Soln -) 1 amp NEB Q4H PRN PRN Reason: SHORT OF BREATH/WHEEZING Last Admin: 09/26/17 21:35 Dose: 1 amp Aspirin (Ecotrin -) 81 mg PO DAILY [facility] Last Admin: 09/27/17 09:43 Dose: 81 mg Buspirone HCl (Buspar -) 15 mg PO TID [facility] Last Admin: 09/27/17 14:34 Dose: 15 mg Insulin Aspart (Novolog Vial Sliding Scale -) 1 vial SQ TIDAC ANDREA PRN Reason: Protocol Last Admin: 09/27/17 12:12 Dose: 2 units Insulin Detemir (Levemir Vial) 10 units SQ HS [facility] Last Admin: 09/27/17 12:12 Dose: Not Given Ketoconazole (Nizoral 2% Cream -) 1 applic TP DAILY [facility] Last Admin: 09/27/17 09:53 Dose: 1 applic Levothyroxine Sodium (Synthroid -) 300 mcg PO ACBK [facility] Last Admin: 09/27/17 06:20 Dose: 300 mcg Lorazepam (Ativan -) 2 mg PO HS PRN PRN Reason: ANXIETY Lorazepam (Ativan Injection -) 1 mg IVPUSH Q8H PRN PRN Reason: ANXIETY Morphine Sulfate (Morphine Sulfate) 4 mg IVPUSH Q3H PRN PRN Reason: SEVERE PAIN Ondansetron HCl (Zofran Injection) 4 mg IVPB Q4H PRN PRN Reason: NAUSEA Last Admin: 09/27/17 07:33 Dose: 4 mg Pantoprazole Sodium (Protonix Iv) 40 mg IVPUSH DAILY [facility] Last Admin: 09/27/17 09:43 Dose: 40 mg Quetiapine Fumarate (Seroquel -) 800 mg PO HS [facility] Last Admin: 09/26/17 21:57 Dose: 800 mg Quinapril HCl (Accupril -) 10 mg PO DAILY [facility] Last Admin: 09/27/17 09:44 Dose: 10 mg Tramadol HCl (Ultram -) 50 mg PO Q8H PRN PRN Reason: PAIN Last Admin: 09/27/17 06:19 Dose: 50 mg Ziprasidone (Geodon -) 40 mg PO BID [facility] Last Admin: 09/27/17 09:44 Dose: 40 mg A/P s/p Laparoscopic Ventral Hernia Repair Morbid Obesity Severe SHELL COPD Chronic Hypoxic Respiratory Failure HTN DM Hyperlipidemia Hypothyroidism - inhaled bronchodilators - O2 to keep Spo2 >90% - pain control - incentive spirometry - CPAP at night - DVT prophylaxis
[2017-09-27] MEDS: ALBUTEROL SO4 0.083% IH SOL 2.5 MG/3 ML VIAL.NEB. NEB PRN (22:30)
[2017-09-27] MEDS: QUEtiapine FUMARATE 200 MG TABLET PO SCH (23:07)
[2017-09-28] MEDS: LEVOTHYROXINE NA 150 MCG TABLET PO SCH (06:58)
[2017-09-28] MEDS: busPIRone HCL 5 MG TABLET PO SCH (06:58)
[2017-09-28] MEDS: INSULIN SLIDING SCALE (NOVOLOG) 1 VIAL SQ SCH (07:38)
[2017-09-28 09:01] VITALS: BP 134/34; PULSE 85; TEMP 98.7
--- NOTE | 2017-09-28 10:06 | DS ---
Physical Examination Vital Signs: Vital Signs Temperature 98.7 F 09/28/17 08:59 Pulse Rate 85 09/28/17 08:59 Respiratory Rate 18 09/28/17 08:59 Blood Pressure 134/34 09/28/17 08:59 O2 Sat by Pulse Oximetry (%) 96 09/27/17 21:00 Findings/Remarks: feels ok pain + but says did not take pain meds. passing gas. comfortable wants to go home Constitutional: Yes: No Distress, Calm Cardiovascular: Yes: Regular Rate and Rhythm Respiratory: Yes: CTA Bilaterally Gastrointestinal: Yes: Normal Bowel Sounds, Soft Edema: No Neurological: Yes: Alert Labs: CBC, BMP 09/26/17 06:00 09/26/17 06:00 Discharge Summary Reason For Visit: ABDOMINAL PAIN Current Active Problems Abdominal pain (Acute) Abdominal wall hernia (Acute) Calf pain (Acute) Diabetes mellitus type 2, insulin dependent (Acute) Incarcerated umbilical hernia (Acute) Incisional hernia of anterior abdominal wall without obstruction or gangrene ( Acute) Morbid obesity with BMI of 40.0-44.9, adult (Acute) Pre-operative cardiovascular examination (Acute) Schizoaffective disorder, bipolar type (Acute) Status post repair of ventral hernia (Acute) Hospital Course: admitted for incarcinated umblical hernia underwent laproscopic repair.--Dr. Holcomb. Now much better spoke with surgeon last night. cleared for discharged discussed with pt diet discussed will follow in office. pt to follow with surgeon. pt in agreement. meds reconcilled discussed with nursing staff time spend in examining/ preparing discharge and coordating care- 35 min Condition: Stable - Instructions Referrals: Bahman Holcomb MD [Staff Physician] - Tej Chamberlain MD [Primary Care Provider] - Disposition: HOME - Home Medications Comprehensive Discharge Medication List: Ambulatory Orders Buspirone HCl [Buspar] 15 mg PO TID 03/20/14 Lorazepam [Ativan] 2 mg PO HS PRN 03/20/14 Rosuvastatin Calcium [Crestor] 10 mg PO HS 03/20/14 FA/Mv,Ca,Iron,Min/Lycopene/Lut [Centrum Tablet] 1 each PO DAILY 07/03/14 Anastrozole [Arimidex -] 1 mg PO DAILY #0 12/06/16 Aspirin [ASA -] 81 mg PO DAILY #0 12/06/16 Gabapentin [Neurontin -] 100 mg PO Q8H #0 12/06/16 Insulin (Levemir) [Levemir Flexpen -] 10 units SQ HS #0 12/06/16 Insulin (Novolog) [Novolog Flexpen -] 0 units SQ ASDIR #0 12/06/16 Levothyroxine [Synthroid -] 300 mcg PO DAILY #0 12/06/16 Quetiapine Fumarate [Seroquel -] 800 mg PO HS #0 12/06/16 Quinapril HCl [Accupril -] 10 mg PO DAILY #0 12/06/16 Ziprasidone HCl [Geodon] 40 mg PO BID #0 12/06/16 Albuterol 0.083% Nebulizer Blaire [Ventolin 0.083% Nebulizer Soln -] 1 amp NEB Q4H PRN amp 09/28/17 Ibuprofen [Motrin -] 400 mg PO TID PRN #21 tablet 09/28/17 Ketoconozole 2% Cream [Nizoral 2% Cream -] 1 applic TP DAILY #1 tube 09/28/17 Polyethylene Glycol 3350 [Miralax 119 gm Btl -] 17 gm PO DAILY PRN #1 bag Ziprasidone [Geodon -] 40 mg PO BID capsule 09/28/17
[2017-09-28] MEDS ORDERED: PT OWN MED DRAWER 7, Y5N ONE (10:08)
[2017-09-28] MEDS: ASPIRIN COATED 81 MG TABLET.EC PO SCH (10:11)
[2017-09-28] MEDS: QUINAPRIL HCL 10 MG TABLET (FP) PO SCH (10:12)
[2017-09-28] MEDS: ZIPRASIDONE 40 MG CAPSULE (FP) PO SCH (10:13)
[2017-09-28] MEDS ORDERED: PANTOPRAZOLE 40 MG TABLET (FP) PO SCH (10:15)
--- NOTE | 2017-09-28 11:11 | PN ---
Progress Note, Physician Chief Complaint: Events noted Not in distress post op incisional discomfort History of Present Illness: Patient was seen and examined. Awake and alert. Chart was reviewed Denies chest pain, SOB or palpitations. - Objective Vital Signs: Vital Signs Temperature 98.7 F 09/28/17 08:59 Pulse Rate 85 09/28/17 08:59 Respiratory Rate 18 09/28/17 08:59 Blood Pressure 134/34 09/28/17 08:59 O2 Sat by Pulse Oximetry (%) 96 09/28/17 09:00 Cardiovascular: Yes: Regular Rate and Rhythm, S1, S2 Respiratory: Yes: Diminished Gastrointestinal: Yes: Abdomen, Obese, Other (Post op) Edema: No Problem List - Problems (1) Abdominal wall hernia Code(s): K43.9 - VENTRAL HERNIA WITHOUT OBSTRUCTION OR GANGRENE (2) Diabetes mellitus type 2, insulin dependent Code(s): E11.9 - TYPE 2 DIABETES MELLITUS WITHOUT COMPLICATIONS; Z79.4 - PROCEDURAL NURSE (CURRENT) USE OF INSULIN (3) Morbid obesity with BMI of 40.0-44.9, adult Code(s): E66.01 - MORBID (SEVERE) OBESITY DUE TO EXCESS CALORIES; Z68.41 - BODY MASS INDEX (BMI) 40.0-44.9, ADULT (4) Pre-operative cardiovascular examination Code(s): Z01.810 - ENCOUNTER FOR PREPROCEDURAL CARDIOVASCULAR EXAMINATION (5) Schizoaffective disorder, bipolar type Code(s): F25.0 - SCHIZOAFFECTIVE DISORDER, BIPOLAR TYPE (6) Breast CA Code(s): C50.919 - MALIGNANT NEOPLASM OF UNSP SITE OF UNSPECIFIED FEMALE BREAST Qualifiers: Breast location: unspecified site of breast (7) COPD (chronic obstructive pulmonary disease) Code(s): J44.9 - CHRONIC OBSTRUCTIVE PULMONARY DISEASE, UNSPECIFIED Qualifiers: COPD type: unspecified COPD Qualified Code(s): J44.9 - Chronic obstructive pulmonary disease, unspecified (8) Hyperlipidemia Code(s): E78.5 - HYPERLIPIDEMIA, UNSPECIFIED Qualifiers: Hyperlipidemia type: pure hypercholesterolemia Qualified Code(s): E78.00 - Pure hypercholesterolemia, unspecified; E78.0 - Pure hypercholesterolemia (9) Hypertension Code(s): I10 - ESSENTIAL (PRIMARY) HYPERTENSION Qualifiers: Hypertension type: essential hypertension Qualified Code(s): I10 - Essential (primary) hypertension (10) Hypothyroidism Code(s): E03.9 - HYPOTHYROIDISM, UNSPECIFIED Qualifiers: Hypothyroidism type: unspecified Qualified Code(s): E03.9 - Hypothyroidism , unspecified (11) Obstructive sleep apnea on CPAP Code(s): G47.33 - OBSTRUCTIVE SLEEP APNEA (ADULT) (PEDIATRIC) Assessment/Plan 1. Post-operative cardiovascular evaluation 2. Symptomatic incisional ventral hernia post repair 2. HTN/HCVD 3. Hypothyroidism 4. Hyperlipidemia 5. Schizophrenia 6. History of breast CA 7. OSAS on CPAP 8. Type 2 DM 9. COPD PLAN: 1. Post operative wound care 2. ASA, continue Accupril 10 mg QD and Crestor 10 mg QD. 3. Continue CPAP, O2 as needed, DVT and GI prophylaxis Further plans are to follow. Discharge planning Servando Pritchard MD
== END 2017-09-28 11:03 | disposition home or self-care (01) | DRG 354 ==
LOC: JER 16:09 → JERBED 09-23 10:17 → J5S 09-23 12:40 → JSAMEDAYSX 09-24 14:30 → JICU 09-24 20:03 → J4W 09-25 20:08
PROVIDERS: ADMIT Internal Medicine; ATTEND Internal Medicine
PROC: 0WUF4JZ Supplement Abdominal Wall with Synthetic Substitute, Percutaneous Endoscopic Approach (ICD-10-PCS; principal; 2017-09-24 12:30)
DX: K43.0 Incisional hernia with obstruction, without gangrene (principal); F20.0 Paranoid schizophrenia; J96.11 Chronic respiratory failure with hypoxia; Z68.41 Body mass index [BMI] 40.0-44.9, adult; G40.89 Other seizures; C50.911 Malignant neoplasm of unspecified site of right female breast; J44.9 Chronic obstructive pulmonary disease, unspecified; Z79.4 Long term (current) use of insulin; E66.01 Morbid (severe) obesity due to excess calories; Z99.81 Dependence on supplemental oxygen; E78.00 Pure hypercholesterolemia, unspecified; Z87.891 Personal history of nicotine dependence; F41.9 Anxiety disorder, unspecified; Z96.642 Presence of left artificial hip joint; Z99.89 Dependence on other enabling machines and devices; G47.33 Obstructive sleep apnea (adult) (pediatric); M71.22 Synovial cyst of popliteal space [Baker], left knee
CPT/HCPCS: 36415; 71010-TC; 74176-TC; 80048; 80053; 81003; 83690; 83735; 85025; 85610; 85730; 86850; 86900; 86901; 87086; 93005; 93010; 93306-TC; 93970-TC; 94640; 94660; 94760; 99285-25

== ENCOUNTER 2019-08-15 18:31 | Emergency (ER) | payer OTHER, MEDICARE ==
[2019-08-15] MEDS ORDERED: SODIUM CHLORIDE 1,000 ML IV STA (19:01)
--- NOTE | 2019-08-15 19:01 | PDOC ---
Rapid Medical Evaluation Time Seen by Provider: 08/15/19 18:55 Medical Evaluation: Allergies Allergy/AdvReac Type Severity Reaction Status Date / Time acetaminophen [From Tylenol] Allergy "VOMITS" Verified 09/22/17 16:30 almond oil Allergy "ITCHY" Verified 09/22/17 16:30 citalopram hydrobromide Allergy "STROKE Verified 09/22/17 16:30 [From Celexa] LIKE SYMPTOMS" divalproex sodium Allergy "PANCREATIT Verified 09/22/17 16:30 [From Depakote] IS" Iodinated Contrast Media Allergy Verified 09/22/17 16:30 [Iodinated Contrast Media - IV Dye] lamotrigine [From Lamictal] Allergy "FACE Verified 09/22/17 16:30 SWELLS" lithium [[place]] Allergy "SEIZURES,SWOLLEN Verified 09/22/17 16:30 ARMS/LEGS" meperidine HCl [From Demerol] Allergy "TURNS RED Verified 09/22/17 16:30 WHEN MIXED WITH NOVACAINE" shellfish derived Allergy "TURNED Verified 09/22/17 16:30 RED /ITCHY" sulfamethoxazole Allergy "COLLAPSED, Verified 09/22/17 16:30 [From Bactrim] HEART ISSUE" topiramate [From Topamax] Allergy TO Verified 09/22/17 16:30 POISONOUS LEVELS" trimethoprim [From Bactrim] Allergy "COLLAPSED,HEART Verified 09/22/17 16:30 ISSUE" 08/15/19 18:55 CC: sent by PMD for hyperglycemia and "I think I have an eye infection." PE: T-100.8, HR-92, SpO2- 93%. Diminished breath sounds. Orders: DKA w/u Patient is to proceed to ER for further evaluation. Discharge Disposition - Diagnosis Diabetes mellitus type 2, insulin dependent - Referrals - Patient Instructions - Post Discharge Activity
[2019-08-15 19:06] VITALS: BMI 49.8
--- NOTE | 2019-08-15 19:23 | PDOC ---
History of Present Illness - General Chief Complaint: Blood Sugar Problem Stated Complaint: SENT BY DOCTOR Time Seen by Provider: 08/15/19 18:55 Past History - Past Medical History Allergies/Adverse Reactions: Allergies Allergy/AdvReac Type Severity Reaction Status Date / Time acetaminophen [From Tylenol] Allergy "VOMITS" Verified 08/15/19 18:56 almond oil Allergy "ITCHY" Verified 08/15/19 18:56 citalopram hydrobromide Allergy "STROKE Verified 08/15/19 18:56 [From Celexa] LIKE SYMPTOMS" divalproex sodium Allergy "PANCREATIT Verified 08/15/19 18:56 [From Depakote] IS" Iodinated Contrast Media Allergy Verified 08/15/19 18:56 [Iodinated Contrast Media - IV Dye] lamotrigine [From Lamictal] Allergy "FACE Verified 08/15/19 18:56 SWELLS" lithium [[place]] Allergy "SEIZURES,SWOLLEN Verified 08/15/19 18:56 ARMS/LEGS" meperidine HCl [From Demerol] Allergy "TURNS RED Verified 08/15/19 18:56 WHEN MIXED WITH NOVACAINE" shellfish derived Allergy "TURNED Verified 08/15/19 18:56 RED /ITCHY" sulfamethoxazole Allergy "COLLAPSED, Verified 08/15/19 18:56 [From Bactrim] HEART ISSUE" topiramate [From Topamax] Allergy TO Verified 08/15/19 18:56 POISONOUS LEVELS" trimethoprim [From Bactrim] Allergy "COLLAPSED,HEART Verified 08/15/19 18:56 ISSUE" Home Medications: Ambulatory Orders Buspirone HCl [Buspar] 15 mg PO TID 03/20/14 Lorazepam [Ativan] 2 mg PO HS PRN 03/20/14 Rosuvastatin Calcium [Crestor] 10 mg PO HS 03/20/14 FA/Mv,Ca,Iron,Min/Lycopene/Lut [Centrum Tablet] 1 each PO DAILY 07/03/14 Anastrozole [Arimidex -] 1 mg PO DAILY #0 12/06/16 Aspirin [ASA -] 81 mg PO DAILY #0 12/06/16 Gabapentin [Neurontin -] 100 mg PO Q8H #0 12/06/16 Insulin (Levemir) [Levemir Flexpen -] 10 units SQ HS #0 12/06/16 Insulin (Novolog) [Novolog Flexpen -] 0 units SQ ASDIR #0 12/06/16 Levothyroxine [Synthroid -] 300 mcg PO DAILY #0 12/06/16 Quetiapine Fumarate [Seroquel -] 800 mg PO HS #0 12/06/16 Quinapril HCl [Accupril -] 10 mg PO DAILY #0 12/06/16 Ziprasidone HCl [Geodon] 40 mg PO BID #0 12/06/16 Albuterol 0.083% Nebulizer Blaire [Ventolin 0.083% Nebulizer Soln -] 1 amp NEB Q4H PRN amp 09/28/17 Ibuprofen [Motrin -] 400 mg PO TID PRN #21 tablet 09/28/17 Ketoconozole 2% Cream [Nizoral 2% Cream -] 1 applic TP DAILY #1 tube 09/28/17 Polyethylene Glycol 3350 [Miralax 119 gm Btl -] 17 gm PO DAILY PRN #1 bag Ziprasidone [Geodon -] 40 mg PO BID capsule 09/28/17 Anemia: No Asthma: No Cancer: Yes (breast cancer right breast lumpectomy) Cardiac Disorders: No CVA: No COPD: Yes (SLEEP APNEA-USES NASAL CPAP(SET AT 30)) CHF: No Dementia: No Diabetes: Yes GI Disorders: Yes (pancreatitis, constipation) Disorders: No HTN: Yes Hypercholesterolemia: Yes Liver Disease: No Psychiatric Problems: (SCHIZOEFFECTIVE) Seizures: Yes (LAST ONE-2YRS (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)) Thyroid Disease: Yes (hypothyroid) - Surgical History Abdominal Surgery: No Appendectomy: No Cardiac Surgery: No Cholecystectomy: Yes Lung Surgery: No Neurologic Surgery: No Orthopedic Surgery: Yes - Psycho Social/Smoking Cessation Hx Smoking Status: Yes Smoking History: Former smoker Have you smoked in the past 12 months: No Number of Cigarettes Smoked Daily: 20 If you are a former smoker, when did you quit?: March 2017 Information on smoking cessation initiated: Yes 'Breaking Loose' booklet given: 12/03/16 Hx Alcohol Use: No Drug/Substance Use Hx: No Substance Use Type: None Hx Substance Use Treatment: No *Physical Exam - Vital Signs Last Vital Signs Temp Pulse Resp BP Pulse Ox 100.8 F H 92 H 20 120/68 93 L 08/15/19 18:57 08/15/19 18:57 08/15/19 18:57 08/15/19 18:57 08/15/19 18:57 Discharge - Discharge Information Clinical Impression/Diagnosis: Diabetes mellitus type 2, insulin dependent - Follow up/Referral Referrals: Tej Chamberlain MD [Primary Care Provider] - - Patient Discharge Instructions - Post Discharge Activity
--- NOTE | 2019-08-15 19:25 | PDOC ---
History of Present Illness - General Chief Complaint: Blood Sugar Problem Stated Complaint: SENT BY DOCTOR Time Seen by Provider: 08/15/19 18:55 Past History - Past Medical History Allergies/Adverse Reactions: Allergies Allergy/AdvReac Type Severity Reaction Status Date / Time acetaminophen [From Tylenol] Allergy "VOMITS" Verified 08/15/19 18:56 almond oil Allergy "ITCHY" Verified 08/15/19 18:56 citalopram hydrobromide Allergy "STROKE Verified 08/15/19 18:56 [From Celexa] LIKE SYMPTOMS" divalproex sodium Allergy "PANCREATIT Verified 08/15/19 18:56 [From Depakote] IS" Iodinated Contrast Media Allergy Verified 08/15/19 18:56 [Iodinated Contrast Media - IV Dye] lamotrigine [From Lamictal] Allergy "FACE Verified 08/15/19 18:56 SWELLS" lithium [[place]] Allergy "SEIZURES,SWOLLEN Verified 08/15/19 18:56 ARMS/LEGS" meperidine HCl [From Demerol] Allergy "TURNS RED Verified 08/15/19 18:56 WHEN MIXED WITH NOVACAINE" shellfish derived Allergy "TURNED Verified 08/15/19 18:56 RED /ITCHY" sulfamethoxazole Allergy "COLLAPSED, Verified 08/15/19 18:56 [From Bactrim] HEART ISSUE" topiramate [From Topamax] Allergy TO Verified 08/15/19 18:56 POISONOUS LEVELS" trimethoprim [From Bactrim] Allergy "COLLAPSED,HEART Verified 08/15/19 18:56 ISSUE" Home Medications: Ambulatory Orders Buspirone HCl [Buspar] 15 mg PO TID 03/20/14 Lorazepam [Ativan] 2 mg PO HS PRN 03/20/14 Rosuvastatin Calcium [Crestor] 10 mg PO HS 03/20/14 FA/Mv,Ca,Iron,Min/Lycopene/Lut [Centrum Tablet] 1 each PO DAILY 07/03/14 Anastrozole [Arimidex -] 1 mg PO DAILY #0 12/06/16 Aspirin [ASA -] 81 mg PO DAILY #0 12/06/16 Gabapentin [Neurontin -] 100 mg PO Q8H #0 12/06/16 Insulin (Levemir) [Levemir Flexpen -] 10 units SQ HS #0 12/06/16 Insulin (Novolog) [Novolog Flexpen -] 0 units SQ ASDIR #0 12/06/16 Levothyroxine [Synthroid -] 300 mcg PO DAILY #0 12/06/16 Quetiapine Fumarate [Seroquel -] 800 mg PO HS #0 12/06/16 Quinapril HCl [Accupril -] 10 mg PO DAILY #0 12/06/16 Ziprasidone HCl [Geodon] 40 mg PO BID #0 12/06/16 Albuterol 0.083% Nebulizer Blaire [Ventolin 0.083% Nebulizer Soln -] 1 amp NEB Q4H PRN amp 09/28/17 Ibuprofen [Motrin -] 400 mg PO TID PRN #21 tablet 09/28/17 Ketoconozole 2% Cream [Nizoral 2% Cream -] 1 applic TP DAILY #1 tube 09/28/17 Polyethylene Glycol 3350 [Miralax 119 gm Btl -] 17 gm PO DAILY PRN #1 bag Ziprasidone [Geodon -] 40 mg PO BID capsule 09/28/17 Cephalexin [Keflex] 500 mg PO BID 5 Days #10 capsule 08/16/19 Anemia: No Asthma: No Cancer: Yes (breast cancer right breast lumpectomy) Cardiac Disorders: No CVA: No COPD: Yes (SLEEP APNEA-USES NASAL CPAP(SET AT 30)) CHF: No Dementia: No Diabetes: Yes GI Disorders: Yes (pancreatitis, constipation) Disorders: No HTN: Yes Hypercholesterolemia: Yes Liver Disease: No Psychiatric Problems: (SCHIZOEFFECTIVE) Seizures: Yes (LAST ONE-2YRS (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)) Thyroid Disease: Yes (hypothyroid) - Surgical History Abdominal Surgery: No Appendectomy: No Cardiac Surgery: No Cholecystectomy: Yes Lung Surgery: No Neurologic Surgery: No Orthopedic Surgery: Yes - Psycho Social/Smoking Cessation Hx Smoking Status: Yes Smoking History: Former smoker Have you smoked in the past 12 months: No Number of Cigarettes Smoked Daily: 20 If you are a former smoker, when did you quit?: March 2017 Information on smoking cessation initiated: Yes 'Breaking Loose' booklet given: 12/03/16 Hx Alcohol Use: No Drug/Substance Use Hx: No Substance Use Type: None Hx Substance Use Treatment: No *Physical Exam - Vital Signs Last Vital Signs Temp Pulse Resp BP Pulse Ox 100.8 F H 92 H 20 120/68 93 L 08/15/19 18:57 08/15/19 18:57 08/15/19 18:57 08/15/19 18:57 08/15/19 18:57 ED Treatment Course - LABORATORY CBC & Chemistry Diagram: 08/15/19 20:20 08/15/19 22:30 Medical Decision Making - Medical Decision Making 08/15/19 20:10 63yo F hx insulin-dependent diabetes, pancreatitis, colitis, COPD, HTN, HLD, seizures, history of breast cancer, morbid obesity, on 3L of oxygen, sleep apnea , schizophrenia, and hypothyroidism, hx PE (2014) on 7mg warfarin, sent by PCP Kera Chamberlain for hyperglycemia. Difficulty controlling glucose all summer often in 300s plus, multiple visits to PCP and changes in insulin, now on 20 units in AM 10 units before 3 meals then 20 units in PM. Today pt was at PCP office and had glucose of 600 so was sent here for r/o DKA. At PCP office they increased her neurontin dose to 900 due to worsening chronic BLE neuropathy. Pt has multiple additional complaints. Pt endorse abdominal pain, diffuse, x few days, gradual onset, constant, similar to intermittent abdominal pain all summer pt believes to be due to stomach virus. Endorses subjective fever yesterday, crusting of eyes x 3-4 days pt believes due to eye infection. Endorses multiple chronic sx x months: muscle stiffness, shortness of breath worse with exertion, lightheadedness intermittent, b/l temporal headaches, word finding difficulty, funny smelling urine intermittent present now, toenail fungus, intermittent diarrhea. Endorses recent dx of oral thrush. Denies chills, fatigue, vertigo, focal weakness, vision changes, cough, chest pain, palpitations, leg swelling, blood in stool, constipation, nausea, vomiting, dysuria, hematuria. VS reviewed. 100.8F, 97% on 3L O2 NC. Morbidly obese, walks with cane, AAOx3 but trouble finding words occasionally, neurologically intact, protuberant but otherwise benign abdomen exam, no signs of eye infection or abnormalities. Due to reported hyperglycemia, r/o DKA. 08/15/19 20:41 Fingerstick 266. CBC and VBG reviewed. WBC 11. Urine collected. 08/15/19 22:19 1g Rocephin for UTI on UA, though dirty sample EKG reviewed. 08/15/19 23:12 Called lab. 3 CMPs have gross hemolysis. Ordered BMP. 08/16/19 00:54 Glucose 356. 08/16/19 01:22 Night insulin 20U Levemir given. 08/16/19 01:35 Labs reviewed. Trop negative, Lact WNL, Acetone negative - not in DKA, TSH 32.8 (last 08/10/19 29.4), T4 0.42, T3 1.0, BUN 22.4, Cr 1.4. CXR reviewed - no acute findings. Keflex sent to pharmacy. Will dc home with PCP f/u. Return precautions given. Pt understands all dc instructions and all questions were answered. Per pt request, taxi called. Discharge - Discharge Information Problems reviewed: Yes Clinical Impression/Diagnosis: Diabetes mellitus type 2, insulin dependent, Urinary tract infection Condition: Improved Disposition: HOME - Admission No - Additional Discharge Information Prescriptions: Cephalexin [Keflex] 500 mg PO BID 5 Days #10 capsule - Follow up/Referral Referrals: Tej Chamberlain MD [Primary Care Provider] - - Patient Discharge Instructions Patient Printed Discharge Instructions: DI for Urinary Tract Infection (UTI), DI for Hyperglycemia -- Adult Additional Instructions: You have been seen in the Emergency Department for your high blood sugar and multiple complaints. Your physical exam, EKG, and labs show no signs concerning for an emergent condition. Your urine indicates a UTI (urinary tract infection) . We have given you 1 antibiotic dose here and sent the remaining prescription to your pharmacy - take the medication as prescribed, two times a day for 5 days , and make sure you finish all of pills, even if you feel better. It is also important to stay hydrated. Your glucose has varied considerably during your stay here. This could be due to your UTI or you may need your medications adjusted. Follow-up with your primary care doctor within 3 days for further evaluation and management. Make sure you take your insulin and other medications as instructed. Return to the ED immediately if you experience fever, vomiting, dizziness, chest pain, shortness of breath, or any other new or worsening symptom. - Post Discharge Activity
--- NOTE | 2019-08-15 20:25 | PDOC ---
Documentation entered by Pau Sandoval SCRIBE, acting as scribe for Brenda Sanches MD. Brenda Sanches MD: This documentation has been prepared by the Jaime nur Brenda, SCRIBE, under my direction and personally reviewed by me in its entirety. I confirm that the documentation accurately reflects all work, treatment, procedures, and medical decision making performed by me. Attending Attestation - Resident Resident Name: ComfortabdulazizDonn - ED Attending Attestation I have performed the following: I have examined & evaluated the patient, The case was reviewed & discussed with the resident, I agree w/resident's findings & plan, Exceptions are as noted - HPI HPI: 08/15/19 20:12 The patient is a 63 year old female, with a significant PMH of insulin- dependent diabetes, pancreatitis, colitis, COPD, hypertension, hyperlipodemia, seizures, history of breast cancer, morbid obesity, on 3L of oxygen, sleep apnea , schizophrenia and hypothyroidism, who presents to the emergency department, sent by her primary for hyperglycemia. Patient also endorses eye itchiness, which she believes is an eye infection. Allergies: NKA Past surgical history: Right breast Lumpectomy, Cholecystectomy Social history: Former tobacco smoker. PCP: Kera Chamberlain - Physicial Exam PE: 08/15/19 20:55 6 foot tall morbidly obese female p/w multiple complaints and states Dr Chamberlain told her to come to the ED head ncat eyes no conjunctivitis,no significant discharge lungs no wheezing cvs [id number] abd protuberant abdomen skin no erythema, no cellulitis extremities no edema neuro axox3, walks with a cane 08/16/19 01:36 - Medical Decision Making 08/15/19 20:20 ROS positive : abd pain, chronic diarrhea,crusty eyes,dysuria, bilateral pin and needles feeling on feet, she has had problems with word searching for past several months 08/15/19 22:41 survey does not show any infiltrates. UA positive for infection ,started on antibiotics CBC is at baseline. Acetone is negative, she is not in DKA 08/16/19 01:30 negative troponin lactic acid is normal electrolytes wnl pt given her night time dose of Levimir
[2019-08-15 20:35] LABS: BASO % 1.2 % (0-2.0); EOS % 1.4 % (0-4.5); HEMATOCRIT 30.8 % (32.4-45.2); HEMOGLOBIN 10.1 GM/dL (10.7-15.3); LYMPH % 19.2 % (8-40); MCHC 32.8 g/dl (32.0-36.0); MEAN CELL VOLUME 88.4 fl (80-96); MEAN PLT VOLUME 8.2 fl (7.5-11.1); NEUT % 70.2 % (42.8-82.8); PLATELET COUNT 358 K/MM3 (134-434); RBC 3.48 M/mm3 (3.60-5.2)
[2019-08-15 20:36] LABS: VENOUS PC02 35.6 mmHg (38-52); VENOUS PH 7.49 (7.31-7.41); VENOUS PO2 57.5 mmHg (28-48)
[2019-08-15] MEDS ORDERED: IBUPROFEN 600 MG TABLET (FP) PO ONE ×2 (20:44→20:52)
[2019-08-15 20:54] LABS: INR 2.5 (0.83-1.09); PROTHROMBIN TIME (PATIENT) 29.8 SEC (9.7-13.0)
[2019-08-15 21:42] LABS: PH,URINE 5.5 (5.0-8.0); URINE APPEARANCE Clear; URINE BILIRUBIN Negative (NEGATIVE); URINE COLOR Yellow; URINE GLUCOSE (UA) Trace (NEGATIVE); URINE KETONE Negative (NEGATIVE); URINE LEUK ESTERASE 2+ (NEGATIVE); URINE NITRITE Negative (NEGATIVE); URINE PROTEIN 1+ (NEGATIVE); URINE UROBILINOGEN 0.2 mg/dL (0.2-1.0)
[2019-08-15 21:52] LABS: EPI CELLS 0-8 /HPF (0-5/HPF); URINE BACTERIA MODERATE /hpf (NEGATIVE); URINE RBC 50-100 /hpf (0-4); URINE WBC 50-100 /hpf (0-5)
[2019-08-15] MEDS ORDERED: CEFTRIAXONE 1 GM in DEXTROSE 5%-WATER - 100 ML IVPB ONE (22:19)
[2019-08-15] MEDS ORDERED: CEFTRIAXONE 1 GM/50 ML BAG ONE (22:43)
[2019-08-16 00:40] LABS: ANION GAP 8 MMOL/L (8-16); BLOOD UREA NITROGEN 22.4 mg/dL (7-18); CALCIUM 8.2 mg/dL (8.5-10.1); CHLORIDE 98 mmol/L (98-107); CO2 30 mmol/L (21-32); CREATININE 1.4 mg/dL (0.55-1.3); GLUCOSE,RANDOM 356 mg/dL (74-106); POTASSIUM 3.6 mmol/L (3.5-5.1); SODIUM 136 mmol/L (136-145)
[2019-08-16] MEDS ORDERED: INSULIN (LEVEMIR) 100 UNITS/ML UNITS SQ ONE (00:56)
[2019-08-16 02:35] VITALS: BP 131/73; PULSE 93; TEMP 99.1
--- NOTE | 2019-08-16 10:04 | EKG ---
Test Reason : Blood Pressure : / mmHG Vent. Rate : 086 BPM Atrial Rate : 086 BPM P-R Int : 154 ms QRS Dur : 092 ms QT Int : 394 ms P-R-T Axes : 039 -39 038 degrees QTc Int : 471 ms POOR DATA QUALITY, INTERPRETATION MAY BE ADVERSELY AFFECTED NORMAL SINUS RHYTHM LEFT AXIS DEVIATION MINIMAL VOLTAGE CRITERIA FOR LVH, MAY BE NORMAL VARIANT ANTEROLATERAL INFARCT , AGE UNDETERMINED ABNORMAL ECG Confirmed by Ant Hammer MD ([id number]) on 08/16/2019 10:04:29 AM Referred By: Confirmed By:Ant Hammer MD
== END 2019-08-16 02:33 | disposition home or self-care (01) ==
LOC: JER 18:31
PROC: 3E0337Z Introduction of Electrolytic and Water Balance Substance into Peripheral Vein, Percutaneous Approach (ICD-10-PCS; principal; 2019-08-15)
PROC: 3E03329 Introduction of Other Anti-infective into Peripheral Vein, Percutaneous Approach (ICD-10-PCS; 2019-08-15)
PROC: 3E013VG Introduction of Insulin into Subcutaneous Tissue, Percutaneous Approach (ICD-10-PCS; 2019-08-15)
DX: E11.65 Type 2 diabetes mellitus with hyperglycemia (principal); Z79.4 Long term (current) use of insulin; N39.0 Urinary tract infection, site not specified; I10 Essential (primary) hypertension; E78.00 Pure hypercholesterolemia, unspecified; E03.9 Hypothyroidism, unspecified; F25.9 Schizoaffective disorder, unspecified; G47.30 Sleep apnea, unspecified; Z86.69 Personal history of other diseases of the nervous system and sense organs; K86.9 Disease of pancreas, unspecified; Z95.3 Presence of xenogenic heart valve; E66.01 Morbid (severe) obesity due to excess calories; Z68.42 Body mass index [BMI] 45.0-49.9, adult; Z87.891 Personal history of nicotine dependence; Z88.2 Allergy status to sulfonamides; Z88.6 Allergy status to analgesic agent; Z91.013 Allergy to seafood; Z88.8 Allergy status to other drugs, medicaments and biological substances
CPT/HCPCS: 36415; 71045-TC-FY; 80048; 81003; 82009; 82550; 82553; 82803; 82962; 83605; 84439; 84443; 84481; 84484; 85025; 85610; 85730; 87040; 87086; 87186; 93005; 93010; 96361; 96365; 96372; 99283-25; J7030

== ENCOUNTER 2019-08-19 19:21 | Inpatient (IN) | payer OTHER, MEDICARE ==
--- NOTE | 2019-08-19 19:35 | PDOC ---
History of Present Illness - General Stated Complaint: ALTERED MENTAL STATUS Time Seen by Provider: 08/19/19 19:34 Past History - Past Medical History Allergies/Adverse Reactions: Allergies Allergy/AdvReac Type Severity Reaction Status Date / Time acetaminophen [From Tylenol] Allergy "VOMITS" Verified 08/15/19 18:56 almond oil Allergy "ITCHY" Verified 08/15/19 18:56 citalopram hydrobromide Allergy "STROKE Verified 08/15/19 18:56 [From Celexa] LIKE SYMPTOMS" divalproex sodium Allergy "PANCREATIT Verified 08/15/19 18:56 [From Depakote] IS" Iodinated Contrast Media Allergy Verified 08/15/19 18:56 [Iodinated Contrast Media - IV Dye] lamotrigine [From Lamictal] Allergy "FACE Verified 08/15/19 18:56 SWELLS" lithium [[place]] Allergy "SEIZURES,SWOLLEN Verified 08/15/19 18:56 ARMS/LEGS" meperidine HCl [From Demerol] Allergy "TURNS RED Verified 08/15/19 18:56 WHEN MIXED WITH NOVACAINE" shellfish derived Allergy "TURNED Verified 08/15/19 18:56 RED /ITCHY" sulfamethoxazole Allergy "COLLAPSED, Verified 08/15/19 18:56 [From Bactrim] HEART ISSUE" topiramate [From Topamax] Allergy TO Verified 08/15/19 18:56 POISONOUS LEVELS" trimethoprim [From Bactrim] Allergy "COLLAPSED,HEART Verified 08/15/19 18:56 ISSUE" Home Medications: Ambulatory Orders Buspirone HCl [Buspar] 15 mg PO TID 03/20/14 Lorazepam [Ativan] 2 mg PO HS PRN 03/20/14 Rosuvastatin Calcium [Crestor] 10 mg PO HS 03/20/14 FA/Mv,Ca,Iron,Min/Lycopene/Lut [Centrum Tablet] 1 each PO DAILY 07/03/14 Anastrozole [Arimidex -] 1 mg PO DAILY #0 12/06/16 Aspirin [ASA -] 81 mg PO DAILY #0 12/06/16 Gabapentin [Neurontin -] 100 mg PO Q8H #0 12/06/16 Insulin (Levemir) [Levemir Flexpen -] 10 units SQ HS #0 12/06/16 Insulin (Novolog) [Novolog Flexpen -] 0 units SQ ASDIR #0 12/06/16 Levothyroxine [Synthroid -] 300 mcg PO DAILY #0 12/06/16 Quetiapine Fumarate [Seroquel -] 800 mg PO HS #0 12/06/16 Quinapril HCl [Accupril -] 10 mg PO DAILY #0 12/06/16 Ziprasidone HCl [Geodon] 40 mg PO BID #0 12/06/16 Albuterol 0.083% Nebulizer Blaire [Ventolin 0.083% Nebulizer Soln -] 1 amp NEB Q4H PRN amp 09/28/17 Ibuprofen [Motrin -] 400 mg PO TID PRN #21 tablet 09/28/17 Ketoconozole 2% Cream [Nizoral 2% Cream -] 1 applic TP DAILY #1 tube 09/28/17 Polyethylene Glycol 3350 [Miralax 119 gm Btl -] 17 gm PO DAILY PRN #1 bag Ziprasidone [Geodon -] 40 mg PO BID capsule 09/28/17 Cephalexin [Keflex] 500 mg PO BID 5 Days #10 capsule 08/16/19 Anemia: No Asthma: No Cancer: Yes (breast cancer right breast lumpectomy) Cardiac Disorders: No CVA: No COPD: Yes (SLEEP APNEA-USES NASAL CPAP(SET AT 30)) CHF: No Dementia: No Diabetes: Yes GI Disorders: Yes (pancreatitis, constipation) Disorders: No HTN: Yes Hypercholesterolemia: Yes Liver Disease: No Psychiatric Problems: (SCHIZOEFFECTIVE) Seizures: Yes (LAST ONE-2YRS (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)) Thyroid Disease: Yes (hypothyroid) - Surgical History Abdominal Surgery: No Appendectomy: No Cardiac Surgery: No Cholecystectomy: Yes Lung Surgery: No Neurologic Surgery: No Orthopedic Surgery: Yes - Psycho Social/Smoking Cessation Hx Smoking Status: Yes Smoking History: Former smoker Have you smoked in the past 12 months: No Number of Cigarettes Smoked Daily: 20 If you are a former smoker, when did you quit?: March 2017 'Breaking Loose' booklet given: 12/03/16 Hx Alcohol Use: No Drug/Substance Use Hx: No Substance Use Type: None Hx Substance Use Treatment: No ED Treatment Course - LABORATORY CBC & Chemistry Diagram: 08/21/19 07:21 08/21/19 07:21 Medical Decision Making - Medical Decision Making HPI: 63yo F hx insulin-dependent diabetes, pancreatitis, colitis, COPD, HTN, HLD, seizures, history of breast cancer, morbid obesity, on 3L of oxygen, sleep apnea , schizophrenia, and hypothyroidism, hx PE (2014) on 7mg warfarin presenting with altered mental status. Per EMS report, the patient's niece called 9-11 because the patient was not "acting like herself." No family members are present for collateral history. Patient is known to staff and they state she is usually fully oriented, however patient is now unable to state the month or year. She states she feels unwell but is unable to explain how. When asked if she took her medications, she states she may have missed some doses. History limited due to patient's altered mental status. PCP: Dr. Kera Chamberlain ROS: Unable to complete (patient has AMS) PE: General: Awake, alert, and oriented x 2 (not able to state month/year), morbidly obese, in no acute distress Head: No signs of trauma Eyes: EOMI, sclera anicteric ENT: Moist mucus membranes Neck: Normal ROM, supple Lungs: Lungs clear, Normal breath sounds Cardio: Regular rhythm, S1 and S2 present Abdomen: Soft, nontender. No guarding, no rebound, no masses Extremities: Normal range of motion, Distal pulses present SKIN: Warm, Dry, normal turgor Neurologic: Cranial nerves II through XII intact. Normal speech, sensation, coordination, and gait. ED Course/MDM: DDX including but not limited to UTI, PNA, intoxication, medication nonadherence , overdose, brain bleed/metastasis Labs, EKG, CXR Per chart review, patient was evaluated in this ED on 08/15/19 for hyperglycemia ; found to have UTI and discharged with keflex 08/19/19 19:55 CBC WBC 11.4 K/mm3 (4.0-10.0) H 08/19/19 20:57 RBC 4.04 M/mm3 (3.60-5.2) 08/19/19 20:57 Hgb 11.8 GM/dL (10.7-15.3) 08/19/19 20:57 Hct 35.8 % (32.4-45.2) D 08/19/19 20:57 MCV 88.8 fl (80-96) 08/19/19 20:57 MCH 29.2 pg (25.7-33.7) 08/19/19 20:57 MCHC 32.9 g/dl (32.0-36.0) 08/19/19 20:57 RDW 15.3 % (11.6-15.6) 08/19/19 20:57 Plt Count 440 K/MM3 (134-434) H D 08/19/19 20:57 MPV 7.6 fl (7.5-11.1) 08/19/19 20:57 Absolute Neuts (auto) 7.8 K/mm3 (1.5-8.0) 08/19/19 20:57 Neutrophils % 68.4 % (42.8-82.8) 08/19/19 20:57 Neutrophils % (Manual) 49.4 % (42.8-82.8) 08/19/19 20:57 Band Neutrophils % 2.3 % 08/19/19 20:57 Lymphocytes % 22.5 % (8-40) 08/19/19 20:57 Lymphocytes % (Manual) 36.5 % (8-40) 08/19/19 20:57 Monocytes % 7.0 % (3.8-10.2) 08/19/19 20:57 Monocytes % (Manual) 8 % (3.8-10.2) 08/19/19 20:57 Eosinophils % 1.0 % (0-4.5) 08/19/19 20:57 Eosinophils % (Manual) 1.2 % (0-4.5) 08/19/19 20:57 Basophils % 1.1 % (0-2.0) 08/19/19 20:57 Basophils % (Manual) 0.0 % (0-2.0) 08/19/19 20:57 Myelocytes % (Man) 1 % (0-2) 08/19/19 20:57 Promyelocytes % (Man) 0 % (0-2) 08/19/19 20:57 Blast Cells % (Manual) 0 % (0-0) 08/19/19 20:57 Nucleated RBC % 0 % (0-0) 08/19/19 20:57 Metamyelocytes 1 % (0-2) 08/19/19 20:57 Mild leukocytosis CMP Sodium 140 mmol/L (136-145) 08/19/19 20:57 Potassium 4.4 mmol/L (3.5-5.1) 08/19/19 20:57 Chloride 102 mmol/L (98-107) 08/19/19 20:57 Carbon Dioxide 27 mmol/L (21-32) 08/19/19 20:57 Anion Gap 10 MMOL/L (8-16) 08/19/19 20:57 BUN 21.4 mg/dL (7-18) H 08/19/19 20:57 Creatinine 1.7 mg/dL (0.55-1.3) H 08/19/19 20:57 Est GFR (CKD-EPI)AfAm 36.81 08/19/19 20:57 Est GFR (CKD-EPI)NonAf 31.76 08/19/19 20:57 Random Glucose 263 mg/dL (74-106) H 08/19/19 20:57 Calcium 9.2 mg/dL (8.5-10.1) 08/19/19 20:57 Total Bilirubin 0.7 mg/dL (0.2-1) 08/19/19 20:57 AST 29 U/L (15-37) 08/19/19 20:57 ALT 35 U/L (13-61) 08/19/19 20:57 Alkaline Phosphatase 157 U/L (45-117) H 08/19/19 20:57 Creatine Kinase 275 U/L (26-192) H 08/19/19 20:57 Creatine Kinase Index 1.4 % (0.0-5.0) 08/19/19 20:57 CK-MB (CK-2) 3.9 ng/mL (0.5-3.6) H 08/19/19 20:57 Troponin I < 0.02 ng/ml (0.00-0.05) 08/19/19 20:57 Total Protein 7.6 g/dl (6.4-8.2) 08/19/19 20:57 Albumin 3.0 g/dl (3.4-5.0) L 08/19/19 20:57 Lipase 133 U/L (73-393) 08/19/19 20:57 TSH 57.50 uIU/ml (0.358-3.74) H 08/19/19 20:57 Electrolytes unremarkable Cr elevated Tpn undetectable TSH elevated. Patient has had elevated TSH in the past. Synthroid ordered. 08/19/19 21:46 Attempted to call brother whose contact information is listed in the chart, [phone]. No answer and unable to leave voicemail. 08/19/19 22:22 EKG: Rate 80, QTc 479, low voltage QRS CXR without acute change from previous, my impression CTAP: "FINDINGS There is no large or small bowel obstruction or inflammation. Negative for diverticulitis or colitis. Normal appendix. No free intraperitoneal air or free fluid. Fatty liver. Normal spleen. Normal pancreas. Normal adrenal glands There is some asymmetric fat stranding around the right kidney in the absence of hydronephrosis or obstruction. This is nonspecific. It could be associated with renal or urinary tract infection. Recommend evaluation. Osseous structures are intact." CT Head: "FINDINGS: Mild involutional changes. No hemorrhage. No mass. No visible infarct. Osseous structures are intact. One or more of the following dose reduction techniques were used: automated exposure control, adjustment of the mA and/or kV according to patient size, use of iterative reconstructive technique." 08/20/19 00:18 UTI Previous culture sensitive to Ceftriaxone Ceftriaxone ordered 08/20/19 00:32 Call to [facility] Patient never picked up keflex prescription 08/20/19 00:34 Dr. Miller discussed case with inpatient team who accepted patient for admission under Dr. Chamberlain 08/20/19 00:55 Discharge - Discharge Information Problems reviewed: Yes Clinical Impression/Diagnosis: UTI (urinary tract infection) Qualifiers: Urinary tract infection type: acute pyelonephritis Qualified Code(s): N10 - Acute pyelonephritis Altered mental status Qualifiers: Altered mental status type: disorientation Qualified Code(s): R41.0 - Disorientation, unspecified Condition: Guarded - Admission Yes - Follow up/Referral - Patient Discharge Instructions - Post Discharge Activity
[2019-08-19 21:09] LABS: BASO % 1.1 % (0-2.0); HEMATOCRIT 35.8 % (32.4-45.2); HEMOGLOBIN 11.8 GM/dL (10.7-15.3); LYMPH % 22.5 % (8-40); MCH 29.2 pg (25.7-33.7); MCHC 32.9 g/dl (32.0-36.0); MEAN CELL VOLUME 88.8 fl (80-96); MEAN PLT VOLUME 7.6 fl (7.5-11.1); NEUT % 68.4 % (42.8-82.8); PLATELET COUNT 440 K/MM3 (134-434); RBC 4.04 M/mm3 (3.60-5.2); RDW 15.3 % (11.6-15.6); WHITE BLOOD COUNT 11.4 K/mm3 (4.0-10.0)
[2019-08-19 21:25] LABS: INR 1.76 (0.83-1.09); PROTHROMBIN TIME (PATIENT) 20.9 SEC (9.7-13.0)
[2019-08-19 21:39] LABS: ALK PHOS 157 U/L (45-117); ANION GAP 10 MMOL/L (8-16); BILIRUBIN,TOTAL 0.7 mg/dL (0.2-1); BLOOD UREA NITROGEN 21.4 mg/dL (7-18); CALCIUM 9.2 mg/dL (8.5-10.1); CHLORIDE 102 mmol/L (98-107); CO2 27 mmol/L (21-32); CREATININE 1.7 mg/dL (0.55-1.3); GLUCOSE,RANDOM 263 mg/dL (74-106); POTASSIUM 4.4 mmol/L (3.5-5.1); SGOT/AST 29 U/L (15-37); SGPT/ALT 35 U/L (13-61); SODIUM 140 mmol/L (136-145); TOT PROT 7.6 g/dl (6.4-8.2)
[2019-08-19 21:47] LABS: LIPASE 126 U/L (73-393)
[2019-08-19] MEDS ORDERED: LEVOTHYROXINE NA 200 MCG TABLET PO ONE (22:41)
[2019-08-19] MEDS ORDERED: HALOPERIDOL LACTATE 5 MG/ML IM ONE (22:53)
[2019-08-19] MEDS ORDERED: HALOPERIDOL LACTATE 5 MG/ML ONE (22:54)
--- NOTE | 2019-08-19 23:28 | PDOC ---
Documentation entered by Betzy Sandoval SCRIBE, acting as scribe for Sheeba Malave MD. Sheeba Malave MD: This documentation has been prepared by the Jaime nur Adrianna, SCRIBE, under my direction and personally reviewed by me in its entirety. I confirm that the documentation accurately reflects all work, treatment, procedures, and medical decision making performed by me. Attending Attestation - Resident Resident Name: Jami Arriaga - ED Attending Attestation I have performed the following: I have examined & evaluated the patient, The case was reviewed & discussed with the resident, I agree w/resident's findings & plan - HPI HPI: The patient is a 63 year old female, with a significant PMH of IDDM, pancreatitis, colitis, COPD, HTN, HLD, seizures, right breast cancer lumpectomy , morbid obesity, sleep apnea (uses nasal CPAP), schizophrenia, hypothyroidism, and hx PE (2015), who presents to the ED for evaluation of AMS. Patient was said to be not acting like herself. She is typically fully oriented at baseline , but in the ED patient is unable to recall the date. Patient reports feeling unwell but cannot give description. Allergies: acetaminophen, almond oil, citalopram hydrobromide, divalproex sodium , Iodinated contrast, lamotrigine, lithium, meperidine HCl, shellfish, sulfamethoxazole, topiramate, trimethoprim Surgical History: Cholecystectomy, orthopedic surgery Social History: Former smoker (quit 2 years ago). Denies EtOH or illicit drug use. PCP: Dr. Chamberlain - Physicial Exam PE: GENERAL: +Original evaluation AAOx0. HEAD: No signs of trauma EYES: PERRLA, EOMI, sclera anicteric, conjunctiva clear on right; injected on the left ENT: Auricles normal inspection, hearing grossly normal, nares patent, oropharynx clear without exudates. Moist mucosa NECK: Normal ROM, supple, no lymphadenopathy, JVD, or masses LUNGS: Breath sounds equal, clear to auscultation bilaterally. No wheezes, and no crackles HEART: Regular rate and rhythm, normal S1 and S2, no murmurs, rubs or gallops ABDOMEN: obese, nontender, but tense No guarding, no rebound. No masses EXTREMITIES: Normal range of motion, no edema. No clubbing or cyanosis. No cords, erythema, or tenderness. Bilat lower legs dry peeling skin. NEUROLOGICAL: Cranial nerves II through XII grossly intact. Normal speech, normal gait SKIN: Warm, Dry, decreased turgor; rash on lower extremities/dry peeling skin. Pt is afebrile. 08/19/19 22:14 - Medical Decision Making 08/19/19 23:13 Pt's BUN/Cr are elevated. Pt has elevated TSH>>50; we will give her a dose of levothyroxine. Pt is completely altered MS. She is at CT scan now. 08/19/19 23:28 Pt will be admitted. 08/19/19 23:41 Patient Name: BERNARD PETERSEN THIS IS A PRELIMINARY REPORT FROM [facility] DATE OF SERVICE: 2019-08-19 22:51:26 IMAGES: [id number] EXAM: HEAD CT WITHOUT CONTRAST HISTORY: Altered mental status COMPARISON: None. FINDINGS: Mild involutional changes. No hemorrhage. No mass. No visible infarct. Osseous structures are intact. 08/20/19 00:32 Pt has a UTI/pyelonephritis. She will be treated with rocephin 08/20/19 00:33 Patient Name: BERNARD PETERSEN THIS IS A PRELIMINARY REPORT FROM [facility] DATE OF SERVICE: 2019-08-19 22:53:36 IMAGES: [id number] EXAM: CT abdomen and pelvis without contrast HISTORY: Rule out obstruction COMPARISON: None. FINDINGS There is no large or small bowel obstruction or inflammation. Negative for diverticulitis or colitis. Normal appendix. No free intraperitoneal air or free fluid. Fatty liver. Normal spleen. Normal pancreas. Normal adrenal glands. There is some asymmetric fat stranding around the right kidney in the absence of hydronephrosis or obstruction. This is nonspecific. It could be associated with renal or urinary tract infection. Recommend evaluation. Osseous structures are intact 08/20/19 00:33 Pt will be admitted to the hospitalists for AMS and pyelonephritis
[2019-08-20 00:23] LABS: EPI CELLS 1.4 /HPF (0-5/HPF); URINE APPEARANCE CLOUDY; URINE BILIRUBIN NEGATIVE (NEGATIVE); URINE COLOR YELLOW; URINE GLUCOSE (UA) TRACE (NEGATIVE); URINE KETONE 1+ (NEGATIVE); URINE LEUK ESTERASE 2+ (NEGATIVE); URINE NITRITE NEGATIVE (NEGATIVE); URINE PROTEIN 2+ (NEGATIVE); URINE RBC 5 /hpf (0-4); URINE WBC 238 /hpf (0-5)
[2019-08-20] MEDS ORDERED: CEFTRIAXONE 1,000 MG in DEXTROSE 5%-WATER - 50 ML IVPB ONE (00:30)
[2019-08-20 00:34] LABS: COCAINE, UR NEGATIVE ng/ml (CUTOFF=300); METHADONE, UR NEGATIVE ng/ml (CUTOFF=300); OPIATES, URI NEGATIVE ng/ml (CUTOFF=300); PHENCYCLIDINE,URINE NEGATIVE ng/ml (CUTOFF=25); URINE AMPHETAMINES NEGATIVE ng/ml (CUTOFF=500); URINE BARBITURATES NEGATIVE ng/ml (CUTOFF=200); URINE BENZODIAZEPINES NEGATIVE ng/ml (CUTOFF=200)
[2019-08-20 00:48] LABS: HYALINE CASTS 0 /lpf (0-8)
[2019-08-20] MEDS ORDERED: SODIUM CHLORIDE 0.9% 500 ML INFUS.BAG IV ONE (00:54)
--- NOTE | 2019-08-20 01:17 | HP ---
Admitting History and Physical - Primary Care Physician PCP: - Admission Chief Complaint: AMS History of Present Illness: 63 year old female with PMH of DM,pancreatitis, colitis, COPD, HTN, HLD, seizures, history of breast cancer,sleep apnea (uses CPAP and NC O2), obesity, HTN, Diabetes, right breast CA- s/p lumpectomy, schizophrenia, and hypothyroidism, hx of PE (2014) arrived to ED for altered mental status. According to ED note patient brought in by EMS as niece called had called 911 due to " patient not being herself". Unable to get any history of patient due to AMS. History Source: Medical Record Limitations to Obtaining History: Clinical Condition - Past Medical History [employer]: Yes: Seizure Cardiovascular: Yes: HTN, Hyperlipdemia Pulmonary: Yes: COPD, O2 Dependent, Sleep Apnea Gastrointestinal: Yes: Constipation, Pancreatitis Hepatobiliary: Yes: Cholelithiasis Renal/: Yes: Renal Calculi, Other (urge incontinence, enuresis) Heme/Onc: Yes: Cancer (right breast s/p chemo, XRT, lumpectomy) Psych: Yes: Anxiety, Bipolar (schizoaffective bipolar) Musculoskeletal: Yes: Osteoarthritis Endocrine: Yes: Diabetes Mellitus, Hypothyroidism - Past Surgical History Past Surgical History: Yes: Breast Biopsy (left biopsy benign and right lumpectomy for cancer), Cholecystectomy (laparoscopic), Joint Replacement (left hip) - Smoking History Smoking history: Former smoker Have you smoked in the past 12 months: No Aproximately how many cigarettes per day: 20 If you are a former smoker, when did you quit?: March 2017 - Alcohol/Substance Use Hx Alcohol Use: No History of Substance Use: reports: None - Social History ADL: Independent (walks with cane) Home Medications - Allergies Allergies/Adverse Reactions: Allergies Allergy/AdvReac Type Severity Reaction Status Date / Time acetaminophen [From Tylenol] Allergy "VOMITS" Verified 08/15/19 18:56 almond oil Allergy "ITCHY" Verified 08/15/19 18:56 citalopram hydrobromide Allergy "STROKE Verified 08/15/19 18:56 [From Celexa] LIKE SYMPTOMS" divalproex sodium Allergy "PANCREATIT Verified 08/15/19 18:56 [From Depakote] IS" Iodinated Contrast Media Allergy Verified 09/30/19 18:56 [Iodinated Contrast Media - IV Dye] lamotrigine [From Lamictal] Allergy "FACE Verified 08/15/19 18:56 SWELLS" lithium [Sawgrass] Allergy "SEIZURES,SWOLLEN Verified 08/15/19 18:56 ARMS/LEGS" meperidine HCl [From Demerol] Allergy "TURNS RED Verified 08/15/19 18:56 WHEN MIXED WITH NOVACAINE" shellfish derived Allergy "TURNED Verified 08/15/19 18:56 RED /ITCHY" sulfamethoxazole Allergy "COLLAPSED, Verified 08/15/19 18:56 [From Bactrim] HEART ISSUE" topiramate [From Topamax] Allergy TO Verified 08/15/19 18:56 POISONOUS LEVELS" trimethoprim [From Bactrim] Allergy "COLLAPSED,HEART Verified 08/15/19 18:56 ISSUE" - Home Medications Home Medications: Ambulatory Orders Buspirone HCl [Buspar] 15 mg PO TID 03/20/14 Lorazepam [Ativan] 2 mg PO HS PRN 03/20/14 Rosuvastatin Calcium [Crestor] 10 mg PO HS 03/20/14 FA/Mv,Ca,Iron,Min/Lycopene/Lut [Centrum Tablet] 1 each PO DAILY 07/03/14 Anastrozole [Arimidex -] 1 mg PO DAILY #0 12/06/16 Aspirin [ASA -] 81 mg PO DAILY #0 12/06/16 Gabapentin [Neurontin -] 100 mg PO Q8H #0 12/06/16 Insulin (Levemir) [Levemir Flexpen -] 10 units SQ HS #0 12/06/16 Insulin (Novolog) [Novolog Flexpen -] 0 units SQ ASDIR #0 12/06/16 Levothyroxine [Synthroid -] 300 mcg PO DAILY #0 12/06/16 Quetiapine Fumarate [Seroquel -] 800 mg PO HS #0 12/06/16 Quinapril HCl [Accupril -] 10 mg PO DAILY #0 12/06/16 Ziprasidone HCl [Geodon] 40 mg PO BID #0 12/06/16 Albuterol 0.083% Nebulizer Blaire [Ventolin 0.083% Nebulizer Soln -] 1 amp NEB Q4H PRN amp 09/28/17 Ibuprofen [Motrin -] 400 mg PO TID PRN #21 tablet 09/28/17 Ketoconozole 2% Cream [Nizoral 2% Cream -] 1 applic TP DAILY #1 tube 09/28/17 Polyethylene Glycol 3350 [Miralax 119 gm Btl -] 17 gm PO DAILY PRN #1 bag Ziprasidone [Geodon -] 40 mg PO BID capsule 09/28/17 Cephalexin [Keflex] 500 mg PO BID 5 Days #10 capsule 08/16/19 Family Medical History Family History: Unable to Obtain (Unable to obtain due to AMS ) Review of Systems Unable to obtain ROS, reason: AMS Physical Examination Vital Signs: Vital Signs Temperature 98.9 F 08/19/19 20:00 Pulse Rate 75 08/19/19 20:00 Respiratory Rate 20 08/19/19 20:00 Blood Pressure 124/64 08/19/19 20:00 O2 Sat by Pulse Oximetry (%) 96 08/19/19 20:00 Constitutional: Yes: Obese, Other (patient A0x1 upon exam ( patient mental status fluctuate) able to state name, unable to state month/year/ president) Eyes: Yes: Conjunctiva Clear, EOM Intact HENT: Yes: Atraumatic, Normocephalic Neck: Yes: Supple, Trachea Midline Cardiovascular: Yes: Regular Rate and Rhythm Respiratory: Yes: Regular, CTA Bilaterally Gastrointestinal: Yes: Normal Bowel Sounds, Soft Musculoskeletal: Yes: WNL Integumentary: Yes: Erythema (B/L LE) Neurological: Yes: Confusion Labs: CBC, BMP 08/19/19 20:57 08/19/19 20:57 Imaging - Results Chest X-ray: Report Reviewed (CXR: no acute changes) Cat Scan: Report Reviewed (CT Head: Mild involutional changes, No hemorrhage, mass, visible infract CT abdomen: no large small/large instention inflammation, no acute finding) EKG: Report Reviewed (EKG: Rate 80, QTc 479, low voltage QRS) Problem List - Problems (1) Altered mental status Code(s): R41.82 - ALTERED MENTAL STATUS, UNSPECIFIED Qualifiers: Altered mental status type: disorientation Qualified Code(s): R41.0 - Disorientation, unspecified (2) Urinary tract infection Code(s): N39.0 - URINARY TRACT INFECTION, SITE NOT SPECIFIED Qualifiers: Urinary tract infection type: acute pyelonephritis Qualified Code(s): N10 - Acute pyelonephritis (3) History of pulmonary embolus (PE) Code(s): Z86.711 - PERSONAL HISTORY OF PULMONARY EMBOLISM (4) COPD (chronic obstructive pulmonary disease) Code(s): J44.9 - CHRONIC OBSTRUCTIVE PULMONARY DISEASE, UNSPECIFIED Qualifiers: COPD type: unspecified COPD Qualified Code(s): J44.9 - Chronic obstructive pulmonary disease, unspecified (5) Constipation Code(s): K59.00 - CONSTIPATION, UNSPECIFIED Qualifiers: Constipation type: unspecified constipation type Qualified Code(s): K59.00 - Constipation, unspecified (6) Diabetes mellitus type 2, insulin dependent Code(s): E11.9 - TYPE 2 DIABETES MELLITUS WITHOUT COMPLICATIONS; Z79.4 - CUSTODIAL (CURRENT) USE OF INSULIN (7) Hyperlipidemia Code(s): E78.5 - HYPERLIPIDEMIA, UNSPECIFIED Qualifiers: Hyperlipidemia type: pure hypercholesterolemia Qualified Code(s): E78.00 - Pure hypercholesterolemia, unspecified; E78.0 - Pure hypercholesterolemia (8) Hypertension Code(s): I10 - ESSENTIAL (PRIMARY) HYPERTENSION Qualifiers: Hypertension type: essential hypertension Qualified Code(s): I10 - Essential (primary) hypertension (9) Hypothyroidism Code(s): E03.9 - HYPOTHYROIDISM, UNSPECIFIED Qualifiers: Hypothyroidism type: unspecified Qualified Code(s): E03.9 - Hypothyroidism , unspecified (10) Morbid obesity with BMI of 40.0-44.9, adult Code(s): E66.01 - MORBID (SEVERE) OBESITY DUE TO EXCESS CALORIES; Z68.41 - BODY MASS INDEX (BMI) 40.0-44.9, ADULT (11) Obstructive sleep apnea on CPAP Code(s): G47.33 - OBSTRUCTIVE SLEEP APNEA (ADULT) (PEDIATRIC) (12) Schizoaffective disorder, bipolar type Code(s): F25.0 - SCHIZOAFFECTIVE DISORDER, BIPOLAR TYPE Assessment/Plan 63 year old female with PMH of DM,pancreatitis, colitis, COPD, HTN, HLD, seizures, history of breast cancer, COPD, sleep apnea (uses CPAP and NC O2), obesity, HTN, Diabetes, right breast CA- s/p lumpectomy, schizophrenia, and hypothyroidism, hx of PE (2014) arrived to ED for altered mental status. According to ED note patient brought in by EMS as niece called had called 911 due to " patient not being herself". Unable to get any history of patient due to AMS. #AMS #UTI #YOU - CT head: Mild involutional changes, no mass, visible infarct - CT abdomen: no large or small bowel obstruction or inflammation. Negative for diverticulitis or colitis - CXR: no acute changes - UA: positive; wbc: 11.4 - follow up UCX - In ED given Ceftriaxone 1g, haldol 5mg x1 - 500 ml NS bolus, and continue with NS IVF - continue with Ceftriaxone 1 g daily for 7 days, can adjust based on sensitivity - repeat cbc, cmp --> trend renal function - monitor mental status, if no changes consider repeat CT head ? MRI - safety/fall precaution #Hypothyroidism TSH: 50.5 - given 200 mcg x1 dose - will continue with Synthroid 200mcg daily # DM # Diabetes mellitus - monitor FSBS TID AC - Coverage with novolog sliding scale - continue with Levemir 10 units at night - follow up HgA1c H/o PE ? on Coumadin needs to verified # HTN/HLD - medication need to verified, per pharmacy list last refill was in 2018 - monitor BP - lipid profile in AM #schizophrenia * will hold psych medication until patient mental status improves, need to verify medication in am -Buspirone HCl 15 mg PO TID -Lorazepam 2 mg PO HS PRN -Ziprasidone 40 mg PO BID -Quetiapine Fumarate 800 mg PO HS # Breact Ca - Anastrozole 1 mg PO DAILY #COPD #Sleep apnea - Albuterol 0.083% Nebulizer Blaire 1 amp NEB Q4H PRN - Continue with o2 via NC 2 L/min - BiPAP as needed at night # constipation - Polyethylene Glycol 3350 17 gm PO DAILY Visit type - Emergency Visit Emergency Visit: Yes Care time: The patient presented to the Emergency Department on the above date and was hospitalized for further evaluation of their emergent condition. - New Patient This patient is new to me today: Yes Date on this admission: 08/20/19 - Critical Care Critical Care patient: No
[2019-08-20] MEDS: SODIUM CHLORIDE 1,000 ML IV SCH ×2 (01:52→14:03)
[2019-08-20] MEDS ORDERED: CEFTRIAXONE 1 GM/50 ML BAG ONE (01:54)
[2019-08-20] MEDS ORDERED: ALBUTEROL SO4 0.083% IH SOL 2.5 MG/3 ML VIAL.NEB. NEB PRN (02:08)
[2019-08-20] MEDS ORDERED: POLYETHYLENE GLYCOL 3350 119 GM BTL PO PRN (02:22)
[2019-08-20 03:57] VITALS: BMI 43.9
[2019-08-20] MEDS: INSULIN SLIDING SCALE (NOVOLOG) 1 VIAL SQ SCH ×3 (06:31→17:31)
[2019-08-20 08:31] LABS: BLOOD UREA NITROGEN 23.1 mg/dL (7-18)
[2019-08-20 08:32] LABS: BILIRUBIN,TOTAL 0.5 mg/dL (0.2-1); CALCIUM 9.2 mg/dL (8.5-10.1); CREATININE 1.6 mg/dL (0.55-1.3); POTASSIUM 3.5 mmol/L (3.5-5.1); TOT PROT 7.4 g/dl (6.4-8.2)
[2019-08-20 08:33] LABS: HEMATOCRIT 35.7 % (32.4-45.2); HEMOGLOBIN 11.7 GM/dL (10.7-15.3); MCH 29.4 pg (25.7-33.7); MCHC 32.8 g/dl (32.0-36.0); MEAN CELL VOLUME 89.7 fl (80-96); MEAN PLT VOLUME 7.7 fl (7.5-11.1); PLATELET COUNT 382 K/MM3 (134-434); RBC 3.98 M/mm3 (3.60-5.2); RDW 14.9 % (11.6-15.6); WHITE BLOOD COUNT 8.7 K/mm3 (4.0-10.0)
[2019-08-20] MEDS: ANASTROZOLE 1 MG TABLET PO SCH (09:44)
--- NOTE | 2019-08-20 09:52 | EKG ---
Test Reason : Blood Pressure : / mmHG Vent. Rate : 080 BPM Atrial Rate : 080 BPM P-R Int : 160 ms QRS Dur : 076 ms QT Int : 416 ms P-R-T Axes : 073 -29 038 degrees QTc Int : 479 ms SINUS RHYTHM LOW VOLTAGE QRS CANNOT RULE OUT ANTERIOR INFARCT (CITED ON OR BEFORE 15-AUG-2019) ABNORMAL ECG Confirmed by PAUL RIOS MD ([id number]) on 08/20/2019 9:52:23 AM Referred By: Confirmed By:PAUL RIOS MD
[2019-08-20] MEDS ORDERED: HEPARIN NA (PORCINE) 5,000 UNITS/ML 1ML VIAL SQ SCH (10:00)
[2019-08-20] MEDS ORDERED: LEVOTHYROXINE NA 200 MCG TABLET PO ONE (12:45)
--- NOTE | 2019-08-20 12:57 | PN ---
Progress Note (short form) - Note Progress Note: pt was recently seen by DR Chamberlain in the office 08/15 for uncontrolled blood sugars He had advised her then to go to ER Events noted appears confused but knows who I am and where she is Synthroid was increased to 200mcg as TSH elevated-- pt is ?non compliant with meds Vital Signs - 24 hr 08/19/19 08/20/19 08/20/19 20:00 03:02 03:30 Temperature 98.9 F 97.5 F L Pulse Rate 75 81 Respiratory 20 20 20 Rate Blood Pressure 124/64 104/65 O2 Sat by Pulse 96 100 Oximetry (%) 08/20/19 06:08 Temperature 97.6 F Pulse Rate 75 Respiratory 20 Rate Blood Pressure 124/63 O2 Sat by Pulse Oximetry (%) Current Medications Generic Name Dose Route Start Last Admin Trade Name Freq PRN Reason Stop Dose Admin Albuterol Sulfate 1 amp 08/20/19 02:08 Ventolin 0.083% Nebulizer Soln - NEB Q4H PRN SHORT OF BREATH/WHEEZING Anastrozole 1 mg 08/20/19 10:00 08/20/19 09:44 Arimidex - PO 1 mg DAILY ANDREA Administration Sodium Chloride 1,000 mls @ 75 mls/hr 08/20/19 01:15 08/20/19 01:52 Normal Saline - IV 75 mls/hr ASDIR ANDREA Administration Ceftriaxone Sodium 1 gm/ 50 mls @ 100 mls/hr 08/21/19 10:00 Dextrose IVPB 08/26/19 09:59 DAILY ANDREA Insulin Aspart 1 vial 08/20/19 07:00 08/20/19 11:30 Novolog Vial Sliding Scale - SQ 8 units TIDAC ANDREA Administration Protocol Insulin Detemir 20 units 08/20/19 22:00 Levemir Vial SQ BID ANDREA Levothyroxine Sodium 200 mcg 08/20/19 12:45 Synthroid - PO 08/20/19 12:46 ONCE ONE Levothyroxine Sodium 200 mcg 08/21/19 07:00 Synthroid - PO DAILY@0700 ANDREA Polyethylene Glycol 17 gm 08/20/19 02:22 Miralax (For Daily Use) - PO DAILY PRN CONSTIPATION Quinapril HCl 10 mg 08/21/19 10:00 Accupril - PO DAILY ANDREA Warfarin Sodium 5 mg 08/20/19 18:00 Coumadin - PO DAILY@1800 [facility] Laboratory Results - last 24 hr 08/19/19 08/19/19 08/19/19 00:10 00:10 20:57 WBC RBC Hgb Hct MCV MCH MCHC RDW Plt Count MPV Absolute Neuts (auto) Neutrophils % Neutrophils % (Manual) Band Neutrophils % Lymphocytes % Lymphocytes % (Manual) Monocytes % Monocytes % (Manual) Eosinophils % Eosinophils % (Manual) Basophils % Basophils % (Manual) Myelocytes % (Man) Promyelocytes % (Man) Blast Cells % (Manual) Nucleated RBC % Metamyelocytes PT with INR INR Sodium Potassium Chloride Carbon Dioxide Anion Gap BUN Creatinine Est GFR (CKD-EPI)AfAm Est GFR (CKD-EPI)NonAf POC Glucometer Random Glucose Hemoglobin A1c % Calcium Total Bilirubin AST ALT Alkaline Phosphatase Creatine Kinase 275 H Creatine Kinase Index 1.3 CK-MB (CK-2) 3.6 Troponin I < 0.02 Total Protein Albumin Triglycerides Cholesterol Total LDL Cholesterol HDL Cholesterol Lipase TSH Urine Color Yellow Urine Appearance Cloudy Urine pH 6.0 Ur Specific [place] 1.018 Urine Protein 2+ H Urine Glucose (UA) Trace Urine Ketones 1+ H Urine Blood Trace Urine Nitrite Negative Urine Bilirubin Negative Urine Urobilinogen 1.0 Ur Leukocyte Esterase 2+ H Urine WBC (Auto) 238 Urine RBC (Auto) 5 Urine Casts (Auto) 0 U Pathogenic Cast Auto 0 U Epithel Cells (Auto) 1.4 Urine Bacteria (Auto) 5.0 Salicylates Opiates Screen Negative Methadone Screen Negative Acetaminophen Barbiturate Screen Negative Phencyclidine Screen Negative Ur Amphetamines Screen Negative MDMA (Ecstasy) Screen Negative Benzodiazepines Screen Negative Cocaine Screen Negative U Marijuana (THC) Screen Negative Alcohol, Quantitative 08/19/19 08/19/19 08/19/19 20:57 20:57 20:57 WBC 11.4 H RBC 4.04 Hgb 11.8 Hct 35.8 D MCV 88.8 MCH 29.2 MCHC 32.9 RDW 15.3 Plt Count 440 H D MPV 7.6 Absolute Neuts (auto) 7.8 Neutrophils % 68.4 Neutrophils % (Manual) 49.4 Band Neutrophils % 2.3 Lymphocytes % 22.5 Lymphocytes % (Manual) 36.5 Monocytes % 7.0 Monocytes % (Manual) 8 Eosinophils % 1.0 Eosinophils % (Manual) 1.2 Basophils % 1.1 Basophils % (Manual) 0.0 Myelocytes % (Man) 1 Promyelocytes % (Man) 0 Blast Cells % (Manual) 0 Nucleated RBC % 0 Metamyelocytes 1 PT with INR INR Sodium 140 Potassium 4.4 Chloride 102 Carbon Dioxide 27 Anion Gap 10 BUN 21.4 H Creatinine 1.7 H Est GFR (CKD-EPI)AfAm 36.81 Est GFR (CKD-EPI)NonAf 31.76 POC Glucometer Random Glucose 263 H Hemoglobin A1c % Calcium 9.2 Total Bilirubin 0.7 AST 29 ALT 35 Alkaline Phosphatase 157 H Creatine Kinase 275 H Creatine Kinase Index 1.4 CK-MB (CK-2) 3.9 H Troponin I < 0.02 Total Protein 7.6 Albumin 3.0 L Triglycerides Cholesterol Total LDL Cholesterol HDL Cholesterol Lipase 126 133 TSH 57.50 H Urine Color Urine Appearance Urine pH Ur Specific [place] Urine Protein Urine Glucose (UA) Urine Ketones Urine Blood Urine Nitrite Urine Bilirubin Urine Urobilinogen Ur Leukocyte Esterase Urine WBC (Auto) Urine RBC (Auto) Urine Casts (Auto) U Pathogenic Cast Auto U Epithel Cells (Auto) Urine Bacteria (Auto) Salicylates Opiates Screen Methadone Screen Acetaminophen Barbiturate Screen Phencyclidine Screen Ur Amphetamines Screen MDMA (Ecstasy) Screen Benzodiazepines Screen Cocaine Screen U Marijuana (THC) Screen Alcohol, Quantitative < 3.0 08/19/19 08/19/19 08/20/19 20:57 20:57 05:52 WBC RBC Hgb Hct MCV MCH MCHC RDW Plt Count MPV Absolute Neuts (auto) Neutrophils % Neutrophils % (Manual) Band Neutrophils % Lymphocytes % Lymphocytes % (Manual) Monocytes % Monocytes % (Manual) Eosinophils % Eosinophils % (Manual) Basophils % Basophils % (Manual) Myelocytes % (Man) Promyelocytes % (Man) Blast Cells % (Manual) Nucleated RBC % Metamyelocytes PT with INR 20.90 H INR 1.76 H Sodium Potassium Chloride Carbon Dioxide Anion Gap BUN Creatinine Est GFR (CKD-EPI)AfAm Est GFR (CKD-EPI)NonAf POC Glucometer 234 Random Glucose Hemoglobin A1c % Calcium Total Bilirubin AST ALT Alkaline Phosphatase Creatine Kinase Creatine Kinase Index CK-MB (CK-2) Troponin I Total Protein Albumin Triglycerides Cholesterol Total LDL Cholesterol HDL Cholesterol Lipase TSH Urine Color Urine Appearance Urine pH Ur Specific [place] Urine Protein Urine Glucose (UA) Urine Ketones Urine Blood Urine Nitrite Urine Bilirubin Urine Urobilinogen Ur Leukocyte Esterase Urine WBC (Auto) Urine RBC (Auto) Urine Casts (Auto) U Pathogenic Cast Auto U Epithel Cells (Auto) Urine Bacteria (Auto) Salicylates < 1.7 L Opiates Screen Methadone Screen Acetaminophen <2.0 Barbiturate Screen Phencyclidine Screen Ur Amphetamines Screen MDMA (Ecstasy) Screen Benzodiazepines Screen Cocaine Screen U Marijuana (THC) Screen Alcohol, Quantitative 08/20/19 08/20/19 08/20/19 07:15 07:15 07:15 WBC 8.7 RBC 3.98 Hgb 11.7 Hct 35.7 MCV 89.7 MCH 29.4 MCHC 32.8 RDW 14.9 Plt Count 382 MPV 7.7 Absolute Neuts (auto) Neutrophils % Neutrophils % (Manual) Band Neutrophils % Lymphocytes % Lymphocytes % (Manual) Monocytes % Monocytes % (Manual) Eosinophils % Eosinophils % (Manual) Basophils % Basophils % (Manual) Myelocytes % (Man) Promyelocytes % (Man) Blast Cells % (Manual) Nucleated RBC % Metamyelocytes PT with INR INR Sodium 142 Potassium 3.5 Chloride 103 Carbon Dioxide 30 Anion Gap 9 BUN 23.1 H Creatinine 1.6 H Est GFR (CKD-EPI)AfAm 39.61 Est GFR (CKD-EPI)NonAf 34.18 POC Glucometer Random Glucose 232 H Hemoglobin A1c % 13.2 H Calcium 9.2 Total Bilirubin 0.5 AST 25 ALT 34 Alkaline Phosphatase 153 H Creatine Kinase Creatine Kinase Index CK-MB (CK-2) Troponin I Total Protein 7.4 Albumin 3.0 L Triglycerides 201 H Cholesterol 153 Total LDL Cholesterol 81 HDL Cholesterol 37 L Lipase TSH Urine Color Urine Appearance Urine pH Ur Specific [place] Urine Protein Urine Glucose (UA) Urine Ketones Urine Blood Urine Nitrite Urine Bilirubin Urine Urobilinogen Ur Leukocyte Esterase Urine WBC (Auto) Urine RBC (Auto) Urine Casts (Auto) U Pathogenic Cast Auto U Epithel Cells (Auto) Urine Bacteria (Auto) Salicylates Opiates Screen Methadone Screen Acetaminophen Barbiturate Screen Phencyclidine Screen Ur Amphetamines Screen MDMA (Ecstasy) Screen Benzodiazepines Screen Cocaine Screen U Marijuana (THC) Screen Alcohol, Quantitative 08/20/19 11:17 WBC RBC Hgb Hct MCV MCH MCHC RDW Plt Count MPV Absolute Neuts (auto) Neutrophils % Neutrophils % (Manual) Band Neutrophils % Lymphocytes % Lymphocytes % (Manual) Monocytes % Monocytes % (Manual) Eosinophils % Eosinophils % (Manual) Basophils % Basophils % (Manual) Myelocytes % (Man) Promyelocytes % (Man) Blast Cells % (Manual) Nucleated RBC % Metamyelocytes PT with INR INR Sodium Potassium Chloride Carbon Dioxide Anion Gap BUN Creatinine Est GFR (CKD-EPI)AfAm Est GFR (CKD-EPI)NonAf POC Glucometer 323 Random Glucose Hemoglobin A1c % Calcium Total Bilirubin AST ALT Alkaline Phosphatase Creatine Kinase Creatine Kinase Index CK-MB (CK-2) Troponin I Total Protein Albumin Triglycerides Cholesterol Total LDL Cholesterol HDL Cholesterol Lipase TSH Urine Color Urine Appearance Urine pH Ur Specific [place] Urine Protein Urine Glucose (UA) Urine Ketones Urine Blood Urine Nitrite Urine Bilirubin Urine Urobilinogen Ur Leukocyte Esterase Urine WBC (Auto) Urine RBC (Auto) Urine Casts (Auto) U Pathogenic Cast Auto U Epithel Cells (Auto) Urine Bacteria (Auto) Salicylates Opiates Screen Methadone Screen Acetaminophen Barbiturate Screen Phencyclidine Screen Ur Amphetamines Screen MDMA (Ecstasy) Screen Benzodiazepines Screen Cocaine Screen U Marijuana (THC) Screen Alcohol, Quantitative S1 S2 RRR Lungs no rales or ronchi Abd- soft ,obese, NT trace edema PLAN Uncontrolled DM UTI AMS Schizophrenia H/o pulmonary embolism h/o breast CA-- s/p chemo and RT HTN obesity -- iv antibiotics -- cultures pending -- continue with Synthroid -- Psych eval with regards to her meds -- increase Levemir -- monitor BGM here in hospital-- will adjust meds accordingly -- A1C 13 -- monitor INR-- resume coumadin -- head CT negative -- Abd and pelvis CT pending Problem List - Problems (1) Altered mental status Code(s): R41.82 - ALTERED MENTAL STATUS, UNSPECIFIED Qualifiers: Altered mental status type: disorientation Qualified Code(s): R41.0 - Disorientation, unspecified (2) History of pulmonary embolus (PE) Code(s): Z86.711 - PERSONAL HISTORY OF PULMONARY EMBOLISM (3) Urinary tract infection Code(s): N39.0 - URINARY TRACT INFECTION, SITE NOT SPECIFIED Qualifiers: Urinary tract infection type: acute pyelonephritis Qualified Code(s): N10 - Acute pyelonephritis (4) Breast CA Code(s): C50.919 - MALIGNANT NEOPLASM OF UNSP SITE OF UNSPECIFIED FEMALE BREAST Qualifiers: Breast location: unspecified site of breast (5) Diabetes mellitus type 2, insulin dependent Code(s): E11.9 - TYPE 2 DIABETES MELLITUS WITHOUT COMPLICATIONS; Z79.4 - DETENTION (CURRENT) USE OF INSULIN (6) Hypertension Code(s): I10 - ESSENTIAL (PRIMARY) HYPERTENSION Qualifiers: Hypertension type: essential hypertension Qualified Code(s): I10 - Essential (primary) hypertension
--- NOTE | 2019-08-20 17:47 | HOSP ---
Subjective - Review of Symptoms General: Yes: Other HEENT: Yes: Eye Pain, Sore Throat Physical Examination Vital Signs: Vital Signs Temperature 97.5 F L 08/20/19 15:26 Pulse Rate 78 08/20/19 15:26 Respiratory Rate 20 08/20/19 15:26 Blood Pressure 143/85 08/20/19 15:26 O2 Sat by Pulse Oximetry (%) 96 08/20/19 09:00 Constitutional: Yes: No Distress Eyes: Yes: Other (mild sclera redness on left eye, clear drainage, lower lid redness) Neck: Yes: Supple Cardiovascular: Yes: WNL Labs: CBC, BMP 08/20/19 07:15 08/20/19 07:15 Hospitalist Encounter Assessment: left eye redness, likely mild bacterial conjunctivitis treat with tobramycin drops pt also states she has thrush no thrush seen on oral cavity, some white coating to tongue start nystatin and monitor
[2019-08-20] MEDS: NYSTATIN 500,000 UNITS/5 ML SUSPENSION PO SCH (17:54)
[2019-08-20] MEDS ORDERED: WARFARIN NA 5 MG TABLET (UD) PO SCH (18:00)
[2019-08-20] MEDS: TOBRAMYCIN 0.3% OPHTH SOLN 5 ML BOTTLE OU SCH ×2 (20:04→21:08)
[2019-08-20] MEDS: ZIPRASIDONE 40 MG CAPSULE (FP) PO SCH (21:15)
[2019-08-20] MEDS: BUSPIRONE HCL 10 MG, BUSPIRONE HCL 5 MG PO SCH (21:54)
[2019-08-20] MEDS: GABAPENTIN 100 MG CAPSULE (FP) PO SCH (21:55)
[2019-08-20] MEDS: QUEtiapine FUMARATE 200 MG TABLET PO SCH (21:55)
[2019-08-20] MEDS: INSULIN (LEVEMIR) 100 UNITS/ML UNITS SQ SCH (21:56)
[2019-08-20] MEDS ORDERED: INSULIN (LEVEMIR) 100 UNITS/ML UNITS SQ SCH (22:00)
[2019-08-20] MEDS ORDERED: LORazepam 1 MG TABLET PO PRN (22:00)
[2019-08-20] MEDS ORDERED: QUEtiapine FUMARATE 400 MG TABLET PO SCH (22:00)
[2019-08-20] MEDS ORDERED: busPIRone HCL 10 MG TABLET (FP) PO SCH (22:00)
[2019-08-20] MEDS: ROSUVASTATIN CA 10 MG TABLET (FP) PO SCH (22:23)
[2019-08-21] MEDS: NYSTATIN 500,000 UNITS/5 ML SUSPENSION PO SCH ×4 (00:15→18:15)
[2019-08-21] MEDS: SODIUM CHLORIDE 1,000 ML IV SCH (01:00)
[2019-08-21] MEDS: BUSPIRONE HCL 10 MG, BUSPIRONE HCL 5 MG PO SCH ×3 (05:59→21:24)
[2019-08-21] MEDS: GABAPENTIN 100 MG CAPSULE (FP) PO SCH ×3 (05:59→21:25)
[2019-08-21] MEDS: TOBRAMYCIN 0.3% OPHTH SOLN 5 ML BOTTLE OU SCH ×5 (06:01→21:34)
[2019-08-21] MEDS ORDERED: PT OWN MED DRAWER 7, Y5N ONE ×2 (06:03→08:57)
[2019-08-21] MEDS: INSULIN (LEVEMIR) 100 UNITS/ML UNITS SQ SCH ×2 (06:12→21:35)
[2019-08-21] MEDS: INSULIN SLIDING SCALE (NOVOLOG) 1 VIAL SQ SCH ×3 (06:12→17:20)
[2019-08-21] MEDS ORDERED: LEVOTHYROXINE NA 100 MCG TABLET (FP) PO SCH (07:00)
[2019-08-21 08:09] LABS: HEMOGLOBIN 10.4 GM/dL (10.7-15.3); LYMPH % 30.7 % (8-40); MCH 29.8 pg (25.7-33.7); MCHC 33.4 g/dl (32.0-36.0); MEAN CELL VOLUME 89.2 fl (80-96); MEAN PLT VOLUME 7.6 fl (7.5-11.1); MONO % 8.7 % (3.8-10.2); NEUT % 55.6 % (42.8-82.8); PLATELET COUNT 313 K/MM3 (134-434); RBC 3.47 M/mm3 (3.60-5.2); RDW 14.9 % (11.6-15.6)
[2019-08-21 08:20] LABS: INR 1.42 (0.83-1.09); PROTHROMBIN TIME (PATIENT) 16.8 SEC (9.7-13.0)
[2019-08-21 08:45] LABS: ALBUMIN 2.6 g/dl (3.4-5.0); BILIRUBIN,TOTAL 0.4 mg/dL (0.2-1); BLOOD UREA NITROGEN 21.8 mg/dL (7-18); CALCIUM 8.2 mg/dL (8.5-10.1); CREATININE 1.7 mg/dL (0.55-1.3); POTASSIUM 3.4 mmol/L (3.5-5.1); TOT PROT 6.4 g/dl (6.4-8.2)
[2019-08-21] MEDS ORDERED: DEXTROSE 5%-WATER - 50 ML IVPB ONE (08:57)
[2019-08-21] MEDS ORDERED: cefTRIAXone SODIUM 1 GM VIAL ONE (08:57)
[2019-08-21] MEDS ORDERED: POTASSIUM CHLORIDE TABS 20 MEQ TABLET.ER (FP) PO ONE (09:29)
[2019-08-21] MEDS ORDERED: WARFARIN NA 5 MG TABLET (UD) PO SCH (09:30)
[2019-08-21] MEDS: ZIPRASIDONE 40 MG CAPSULE (FP) PO SCH ×2 (09:51→18:15)
[2019-08-21] MEDS: CEFTRIAXONE 1 GM in DEXTROSE 5%-WATER - 50 ML IVPB SCH (09:51)
[2019-08-21] MEDS: QUINAPRIL HCL 10 MG TABLET (FP) PO SCH (09:52)
[2019-08-21] MEDS: ANASTROZOLE 1 MG TABLET PO SCH (09:52)
[2019-08-21] MEDS ORDERED: QUINAPRIL HCL 10 MG TABLET (FP) PO SCH (10:00)
[2019-08-21] MEDS ORDERED: LEVOTHYROXINE PO SCH (10:00)
--- NOTE | 2019-08-21 10:15 | PN ---
Progress Note (short form) - Note Progress Note: feels better not confused Vital Signs - 24 hr 08/20/19 08/20/19 08/21/19 21:00 21:47 06:17 Temperature 99.1 F 98.9 F Pulse Rate 72 90 Respiratory 20 20 Rate Blood Pressure 154/86 142/88 O2 Sat by Pulse 98 Oximetry (%) 08/21/19 08/21/19 08/21/19 09:00 10:00 14:54 Temperature 98.8 F 97.9 F Pulse Rate 79 76 Respiratory 18 20 Rate Blood Pressure 118/71 126/77 O2 Sat by Pulse 97 Oximetry (%) Current Medications Generic Name Dose Route Start Last Admin Trade Name Freq PRN Reason Stop Dose Admin Albuterol Sulfate 1 amp 08/20/19 02:08 Ventolin 0.083% Nebulizer Soln - NEB Q4H PRN SHORT OF BREATH/WHEEZING Anastrozole 1 mg 08/20/19 10:00 08/21/19 09:52 Arimidex - PO 1 mg DAILY ANDREA Administration Buspirone HCl 10 mg/ Buspirone 15 mg 08/20/19 22:00 08/21/19 15:42 HCl 5 mg PO 15 mg TID ANDREA Administration Gabapentin 100 mg 08/20/19 22:00 08/21/19 15:42 Neurontin - PO 100 mg TID ANDREA Administration Sodium Chloride 1,000 mls @ 75 mls/hr 08/20/19 01:15 08/21/19 01:00 Normal Saline - IV 75 mls/hr ASDIR ANDREA Administration Ceftriaxone Sodium 1 gm/ 50 mls @ 100 mls/hr 08/21/19 10:00 08/21/19 09:51 Dextrose IVPB 08/26/19 09:59 100 mls/hr DAILY ANDREA Administration Insulin Aspart 1 vial 08/20/19 07:00 08/21/19 17:20 Novolog Vial Sliding Scale - SQ 2 units TIDAC ANDREA Administration Protocol Insulin Detemir 25 units 08/21/19 09:30 Levemir Vial SQ BID@0700,2200 [facility] Levothyroxine Sodium 200 mcg 08/22/19 07:00 Synthroid - PO DAILY@0700 ANDREA Lorazepam 1 mg 08/20/19 22:05 Ativan - PO DAILY PRN ANXIETY Nystatin 500,000 units 08/20/19 18:00 08/21/19 18:15 Nystatin Oral Suspension - PO 500,000 units Q6HPO ANDREA Administration Polyethylene Glycol 17 gm 08/20/19 02:22 Miralax (For Daily Use) - PO DAILY PRN CONSTIPATION Quetiapine Fumarate 800 mg 08/20/19 22:00 08/20/19 21:55 Seroquel - PO 800 mg HS ANDREA Administration Quinapril HCl 10 mg 08/21/19 10:00 08/21/19 09:52 Accupril - PO 10 mg DAILY ANDREA Administration Rosuvastatin Calcium 10 mg 08/20/19 22:15 08/20/19 22:23 Crestor - PO 10 mg HS ANDREA Administration Tobramycin Sulfate 1 drop 08/20/19 18:00 08/21/19 18:16 Tobrex Ophthalmic Solution - OU 1 drop Q4HWA ANDREA Administration Warfarin Sodium 2 mg/ Warfarin 7 mg 08/21/19 18:00 08/21/19 18:16 Sodium 5 mg PO 7 mg DAILY@1800 ANDREA Administration Ziprasidone 40 mg 08/21/19 10:27 08/21/19 18:15 Geodon - PO 40 mg BID@0800,1730 ANDRAE Administration Laboratory Results - last 24 hr 08/20/19 08/21/19 08/21/19 22:01 06:09 07:21 WBC 6.0 RBC 3.47 L Hgb 10.4 L Hct 31.0 L MCV 89.2 MCH 29.8 MCHC 33.4 RDW 14.9 Plt Count 313 MPV 7.6 Absolute Neuts (auto) 3.3 Neutrophils % 55.6 Lymphocytes % 30.7 D Monocytes % 8.7 Eosinophils % 4.0 D Basophils % 1.0 Nucleated RBC % 0 PT with INR INR Sodium Potassium Chloride Carbon Dioxide Anion Gap BUN Creatinine Est GFR (CKD-EPI)AfAm Est GFR (CKD-EPI)NonAf POC Glucometer 242 215 Random Glucose Calcium Total Bilirubin AST ALT Alkaline Phosphatase Total Protein Albumin Stool Occult Blood 08/21/19 08/21/19 08/21/19 07:21 07:21 11:00 WBC RBC Hgb Hct MCV MCH MCHC RDW Plt Count MPV Absolute Neuts (auto) Neutrophils % Lymphocytes % Monocytes % Eosinophils % Basophils % Nucleated RBC % PT with INR 16.80 H INR 1.42 H Sodium 142 Potassium 3.4 L Chloride 106 Carbon Dioxide 27 Anion Gap 9 BUN 21.8 H Creatinine 1.7 H Est GFR (CKD-EPI)AfAm 36.81 Est GFR (CKD-EPI)NonAf 31.76 POC Glucometer Random Glucose 207 H Calcium 8.2 L Total Bilirubin 0.4 AST 19 ALT 28 Alkaline Phosphatase 122 H Total Protein 6.4 Albumin 2.6 L Stool Occult Blood Negative 08/21/19 08/21/19 12:01 17:19 WBC RBC Hgb Hct MCV MCH MCHC RDW Plt Count MPV Absolute Neuts (auto) Neutrophils % Lymphocytes % Monocytes % Eosinophils % Basophils % Nucleated RBC % PT with INR INR Sodium Potassium Chloride Carbon Dioxide Anion Gap BUN Creatinine Est GFR (CKD-EPI)AfAm Est GFR (CKD-EPI)NonAf POC Glucometer 241 179 Random Glucose Calcium Total Bilirubin AST ALT Alkaline Phosphatase Total Protein Albumin Stool Occult Blood S1 S2 RRR Lungs no rales or ronchi Abd- soft ,obese, NT trace edema PLAN Uncontrolled DM UTI AMS Schizophrenia H/o pulmonary embolism h/o breast CA-- s/p chemo and RT HTN obesity -- iv antibiotics -- cultures negative Abd/pelvis CT-- ?pyelonephritis continue with SYnthroid coumadin per INR OOB -- Problem List - Problems (1) Altered mental status Code(s): R41.82 - ALTERED MENTAL STATUS, UNSPECIFIED Qualifiers: Altered mental status type: disorientation Qualified Code(s): R41.0 - Disorientation, unspecified (2) History of pulmonary embolus (PE) Code(s): Z86.711 - PERSONAL HISTORY OF PULMONARY EMBOLISM (3) Urinary tract infection Code(s): N39.0 - URINARY TRACT INFECTION, SITE NOT SPECIFIED Qualifiers: Urinary tract infection type: acute pyelonephritis Qualified Code(s): N10 - Acute pyelonephritis (4) Breast CA Code(s): C50.919 - MALIGNANT NEOPLASM OF UNSP SITE OF UNSPECIFIED FEMALE BREAST Qualifiers: Breast location: unspecified site of breast (5) Diabetes mellitus type 2, insulin dependent Code(s): E11.9 - TYPE 2 DIABETES MELLITUS WITHOUT COMPLICATIONS; Z79.4 - CORRECTION (CURRENT) USE OF INSULIN (6) Hypertension Code(s): I10 - ESSENTIAL (PRIMARY) HYPERTENSION Qualifiers: Hypertension type: essential hypertension Qualified Code(s): I10 - Essential (primary) hypertension
[2019-08-21] MEDS ORDERED: ZIPRASIDONE 40 MG CAPSULE (FP) PO SCH (10:16)
[2019-08-21] MEDS ORDERED: INSULIN (NOVOLOG) ASPART 100 UNITS/ML 10ML VIAL ONE (11:55)
[2019-08-21] MEDS ORDERED: WARFARIN NA 5 MG TABLET (UD) ONE (17:41)
[2019-08-21] MEDS ORDERED: WARFARIN NA 2 MG TABLET (UD) ONE (17:42)
[2019-08-21] MEDS ORDERED: WARFARIN NA 2 MG, WARFARIN NA 5 MG PO SCH (18:00)
[2019-08-21] MEDS: ROSUVASTATIN CA 10 MG TABLET (FP) PO SCH (21:24)
[2019-08-21] MEDS: QUEtiapine FUMARATE 200 MG TABLET PO SCH (21:26)
[2019-08-21] MEDS: LORazepam 1 MG TABLET PO PRN (21:29)
[2019-08-22] MEDS: NYSTATIN 500,000 UNITS/5 ML SUSPENSION PO SCH ×5 (01:05→23:23)
[2019-08-22] MEDS: SODIUM CHLORIDE 1,000 ML IV SCH ×2 (05:34→23:23)
[2019-08-22] MEDS: INSULIN (LEVEMIR) 100 UNITS/ML UNITS SQ SCH ×2 (06:25→22:13)
[2019-08-22] MEDS: INSULIN SLIDING SCALE (NOVOLOG) 1 VIAL SQ SCH ×3 (06:26→17:38)
[2019-08-22] MEDS: GABAPENTIN 100 MG CAPSULE (FP) PO SCH ×3 (06:27→22:12)
[2019-08-22] MEDS: LEVOTHYROXINE NA 200 MCG TABLET PO SCH (06:27)
[2019-08-22] MEDS: BUSPIRONE HCL 10 MG, BUSPIRONE HCL 5 MG PO SCH ×3 (06:29→22:11)
[2019-08-22] MEDS: TOBRAMYCIN 0.3% OPHTH SOLN 5 ML BOTTLE OU SCH ×5 (06:30→22:10)
[2019-08-22 09:04] LABS: INR 1.3 (0.83-1.09); PROTHROMBIN TIME (PATIENT) 15.4 SEC (9.7-13.0)
[2019-08-22] MEDS ORDERED: DEXTROSE 5%-WATER - 50 ML IVPB ONE (11:36)
[2019-08-22] MEDS ORDERED: PT OWN MED DRAWER 7, Y5N ONE ×2 (11:36→17:34)
[2019-08-22] MEDS ORDERED: cefTRIAXone SODIUM 1 GM VIAL ONE (11:36)
[2019-08-22] MEDS: CEFTRIAXONE 1 GM in DEXTROSE 5%-WATER - 50 ML IVPB SCH (11:51)
[2019-08-22] MEDS: QUINAPRIL HCL 10 MG TABLET (FP) PO SCH (11:51)
[2019-08-22] MEDS: ANASTROZOLE 1 MG TABLET PO SCH (11:51)
[2019-08-22] MEDS: ZIPRASIDONE 40 MG CAPSULE (FP) PO SCH ×2 (11:51→17:38)
[2019-08-22] MEDS ORDERED: INSULIN (NOVOLOG) ASPART 100 UNITS/ML 10ML VIAL ONE (12:00)
--- NOTE | 2019-08-22 15:06 | PN ---
Progress Note (short form) - Note Progress Note: Pt seen/ examined chart reviewed feels better alert/ awake denies pain Vital Signs Temp 98.7 F 08/22/19 14:14 Pulse 95 H 08/22/19 14:14 Resp 20 08/22/19 14:14 BP 156/80 08/22/19 14:14 Pulse Ox 95 08/22/19 14:14 Intake & Output 08/21/19 08/22/19 08/22/19 23:59 11:59 23:59 Intake Total 2545 450 Balance 2545 450 Intake: IV 1050 450 Normal Saline - 1,000 ml 1050 450 @ 75 mls/hr IV ASDIR [facility] Rx#:[id number] Oral 1495 Other: Voiding Method Bedside Commode Toilet # Unmeasured Voids Void 1 3 Bowel Movement No No Active Medications Albuterol Sulfate (Ventolin 0.083% Nebulizer Soln -) 1 amp NEB Q4H PRN PRN Reason: SHORT OF BREATH/WHEEZING Anastrozole (Arimidex -) 1 mg PO DAILY [facility] Last Admin: 08/22/19 11:51 Dose: 1 mg Buspirone HCl 10 mg/ Buspirone (HCl 5 mg) 15 mg PO TID [facility] Last Admin: 08/22/19 14:51 Dose: 15 mg Gabapentin (Neurontin -) 100 mg PO TID [facility] Last Admin: 08/22/19 14:55 Dose: 100 mg Sodium Chloride (Normal Saline -) 1,000 mls @ 75 mls/hr IV ASDIR [facility] Last Admin: 08/22/19 05:34 Dose: 75 mls/hr Ceftriaxone Sodium 1 gm/ (Dextrose) 50 mls @ 100 mls/hr IVPB DAILY [facility] Stop: 08/26/19 09:59 Last Admin: 08/22/19 11:51 Dose: 100 mls/hr Insulin Aspart (Novolog Vial Sliding Scale -) 1 vial SQ TIDAC [facility]; Protocol Last Admin: 08/22/19 12:00 Dose: 6 units Insulin Detemir (Levemir Vial) 25 units SQ BID@0700,2200 [facility] Last Admin: 08/22/19 06:25 Dose: 25 units Levothyroxine Sodium (Synthroid -) 200 mcg PO DAILY@0700 [facility] Last Admin: 08/22/19 06:27 Dose: 200 mcg Lorazepam (Ativan -) 1 mg PO DAILY PRN PRN Reason: ANXIETY Last Admin: 08/21/19 21:29 Dose: 1 mg Nystatin (Nystatin Oral Suspension -) 500,000 units PO Q6HPO [facility] Last Admin: 08/22/19 11:52 Dose: 500,000 units Polyethylene Glycol (Miralax (For Daily Use) -) 17 gm PO DAILY PRN PRN Reason: CONSTIPATION Quetiapine Fumarate (Seroquel -) 800 mg PO [facility] Last Admin: 08/21/19 21:26 Dose: 800 mg Quinapril HCl (Accupril -) 10 mg PO DAILY [facility] Last Admin: 08/22/19 11:51 Dose: 10 mg Rosuvastatin Calcium (Crestor -) 10 mg PO [facility] Last Admin: 08/21/19 21:24 Dose: 10 mg Tobramycin Sulfate (Tobrex Ophthalmic Solution -) 1 drop OU Q4HWA [facility] Last Admin: 08/22/19 14:55 Dose: 1 drop Warfarin Sodium 2 mg/ Warfarin (Sodium 5 mg) 7 mg PO DAILY@1800 [facility] Last Admin: 08/21/19 18:16 Dose: 7 mg Ziprasidone (Geodon -) 40 mg PO BID@0800,1730 [facility] Last Admin: 08/22/19 11:51 Dose: 40 mg CBC, BMP 08/21/19 07:21 08/21/19 07:21 INR, PTT INR 1.30 (0.83-1.09) H 08/22/19 06:40 ct bad- reviewed u/c - ve Microbiology 08/19/19 00:10 Urine Culture - Final Urine - Urine Clean Catch NO GROWTH OBTAINED Physical Exam alert/ awake Morbidly Obese S1 S2 RRR Lungs -- Diminished at bases Abd- soft ,obese, non tender Ext- no edema PLAN Uncontrolled DM UTI AMS Schizophrenia H/o pulmonary embolism h/o breast CA-- s/p chemo and RT HTN obesity Hypothyroidism -- iv antibiotics -- cultures negative Abd/pelvis CT-- ?pyelonephritis coumadin per INR-- increase to 10 mg daily OOB Increase levemir-- BGm noted continue Synthroid -- Problem List - Problems (1) Altered mental status Code(s): R41.82 - ALTERED MENTAL STATUS, UNSPECIFIED Qualifiers: Altered mental status type: disorientation Qualified Code(s): R41.0 - Disorientation, unspecified (2) History of pulmonary embolus (PE) Code(s): Z86.711 - PERSONAL HISTORY OF PULMONARY EMBOLISM (3) Urinary tract infection Code(s): N39.0 - URINARY TRACT INFECTION, SITE NOT SPECIFIED Qualifiers: Urinary tract infection type: acute pyelonephritis Qualified Code(s): N10 - Acute pyelonephritis (4) Breast CA Code(s): C50.919 - MALIGNANT NEOPLASM OF UNSP SITE OF UNSPECIFIED FEMALE BREAST Qualifiers: Breast location: unspecified site of breast (5) Diabetes mellitus type 2, insulin dependent Code(s): E11.9 - TYPE 2 DIABETES MELLITUS WITHOUT COMPLICATIONS; Z79.4 - FCI (CURRENT) USE OF INSULIN (6) Hypertension Code(s): I10 - ESSENTIAL (PRIMARY) HYPERTENSION Qualifiers: Hypertension type: essential hypertension Qualified Code(s): I10 - Essential (primary) hypertension
[2019-08-22] MEDS: WARFARIN NA 10 MG TABLET (FP) PO SCH (17:38)
[2019-08-22] MEDS: ROSUVASTATIN CA 10 MG TABLET (FP) PO SCH (22:12)
[2019-08-22] MEDS: QUEtiapine FUMARATE 200 MG TABLET PO SCH (22:12)
[2019-08-23] MEDS: SODIUM CHLORIDE 1,000 ML IV SCH ×2 (02:42→14:40)
[2019-08-23] MEDS: TOBRAMYCIN 0.3% OPHTH SOLN 5 ML BOTTLE OU SCH ×4 (06:45→18:53)
[2019-08-23] MEDS: BUSPIRONE HCL 10 MG, BUSPIRONE HCL 5 MG PO SCH ×2 (06:45→14:35)
[2019-08-23] MEDS: NYSTATIN 500,000 UNITS/5 ML SUSPENSION PO SCH ×3 (06:46→18:24)
[2019-08-23] MEDS: INSULIN (LEVEMIR) 100 UNITS/ML UNITS SQ SCH (06:46)
[2019-08-23] MEDS: GABAPENTIN 100 MG CAPSULE (FP) PO SCH ×2 (06:46→14:35)
[2019-08-23] MEDS: INSULIN SLIDING SCALE (NOVOLOG) 1 VIAL SQ SCH ×3 (06:47→17:06)
[2019-08-23] MEDS: LEVOTHYROXINE NA 200 MCG TABLET PO SCH (06:47)
[2019-08-23 08:34] LABS: INR 1.54 (0.83-1.09); PROTHROMBIN TIME (PATIENT) 18.2 SEC (9.7-13.0)
[2019-08-23] MEDS: ZIPRASIDONE 40 MG CAPSULE (FP) PO SCH ×2 (08:45→18:24)
[2019-08-23 08:51] LABS: BLOOD UREA NITROGEN 19.9 mg/dL (7-18); CALCIUM 8.4 mg/dL (8.5-10.1); CREATININE 1.5 mg/dL (0.55-1.3); POTASSIUM 4.3 mmol/L (3.5-5.1)
[2019-08-23] MEDS ORDERED: PT OWN MED DRAWER 7, Y5N ONE ×3 (10:50→15:23)
[2019-08-23] MEDS ORDERED: cefTRIAXone SODIUM 1 GM VIAL ONE (10:50)
[2019-08-23] MEDS ORDERED: DEXTROSE 5%-WATER - 50 ML IVPB ONE (10:50)
[2019-08-23] MEDS: CEFTRIAXONE 1 GM in DEXTROSE 5%-WATER - 50 ML IVPB SCH (10:59)
[2019-08-23] MEDS: ANASTROZOLE 1 MG TABLET PO SCH (11:00)
[2019-08-23] MEDS: QUINAPRIL HCL 10 MG TABLET (FP) PO SCH (11:01)
[2019-08-23] MEDS ORDERED: INSULIN (NOVOLOG) ASPART 100 UNITS/ML 10ML VIAL ONE ×2 (12:04→17:03)
--- NOTE | 2019-08-23 13:52 | PN ---
Progress Note (short form) - Note Progress Note: feels better not confused Vital Signs - 24 hr Vital Signs - 24 hr 08/22/19 08/22/19 08/22/19 14:00 14:14 18:00 Temperature 97.9 F 98.7 F 98.2 F Pulse Rate 81 95 H 84 Respiratory 20 20 20 Rate Blood Pressure 146/84 156/80 151/86 O2 Sat by Pulse 95 Oximetry (%) 08/22/19 08/22/19 08/23/19 21:00 22:00 02:00 Temperature 97.3 F L Pulse Rate 74 92 H Respiratory 20 20 20 Rate Blood Pressure 146/80 132/56 L O2 Sat by Pulse 95 Oximetry (%) 08/23/19 08/23/19 06:00 10:54 Temperature 97.1 F L 97.9 F Pulse Rate 91 H 82 Respiratory 20 20 Rate Blood Pressure 131/73 138/72 O2 Sat by Pulse Oximetry (%) Current Medications Generic Name Dose Route Start Last Admin Trade Name Freq PRN Reason Stop Dose Admin Albuterol Sulfate 1 amp 08/20/19 02:08 Ventolin 0.083% Nebulizer Soln - NEB Q4H PRN SHORT OF BREATH/WHEEZING Anastrozole 1 mg 08/20/19 10:00 08/23/19 11:00 Arimidex - PO 1 mg DAILY ANDREA Administration Buspirone HCl 10 mg/ Buspirone 15 mg 08/20/19 22:00 08/23/19 06:45 HCl 5 mg PO 15 mg TID ANDREA Administration Gabapentin 100 mg 08/20/19 22:00 08/23/19 06:46 Neurontin - PO 100 mg TID ANDREA Administration Sodium Chloride 1,000 mls @ 75 mls/hr 08/20/19 01:15 08/23/19 02:42 Normal Saline - IV Not Given ASDIR ANDREA Ceftriaxone Sodium 1 gm/ 50 mls @ 100 mls/hr 08/21/19 10:00 08/23/19 10:59 Dextrose IVPB 08/26/19 09:59 100 mls/hr DAILY ANDREA Administration Insulin Aspart 1 vial 08/20/19 07:00 08/23/19 12:09 Novolog Vial Sliding Scale - SQ 4 units TIDAC ANDREA Administration Protocol Insulin Detemir 30 units 08/22/19 15:15 08/23/19 06:46 Levemir Vial SQ 30 units BID@0700,2200 ANDREA Administration Levothyroxine Sodium 200 mcg 08/22/19 07:00 08/23/19 06:47 Synthroid - PO 200 mcg DAILY@0700 ANDREA Administration Lorazepam 1 mg 08/20/19 22:05 08/21/19 21:29 Ativan - PO 1 mg DAILY PRN Administration ANXIETY Nystatin 500,000 units 08/20/19 18:00 08/23/19 06:46 Nystatin Oral Suspension - PO 500,000 units Q6HPO ANDREA Administration Polyethylene Glycol 17 gm 08/20/19 02:22 Miralax (For Daily Use) - PO DAILY PRN CONSTIPATION Quetiapine Fumarate 800 mg 08/20/19 22:00 08/22/19 22:12 Seroquel - PO 800 mg HS ANDREA Administration Quinapril HCl 10 mg 08/21/19 10:00 08/23/19 11:01 Accupril - PO 10 mg DAILY ANDREA Administration Rosuvastatin Calcium 10 mg 08/20/19 22:15 08/22/19 22:12 Crestor - PO 10 mg HS ANDREA Administration Tobramycin Sulfate 1 drop 08/20/19 18:00 08/23/19 11:03 Tobrex Ophthalmic Solution - OU 1 drop Q4HWA [facility] Administration Warfarin Sodium 10 mg 08/22/19 18:00 08/22/19 17:38 Coumadin - PO 10 mg DAILY@1800 ANDREA Administration Ziprasidone 40 mg 08/21/19 10:27 08/23/19 08:45 Geodon - PO 40 mg BID@0800,1730 ANDREA Administration Laboratory Results - last 24 hr 08/22/19 08/23/19 08/23/19 17:18 06:29 06:58 PT with INR 18.20 H INR 1.54 H Sodium Potassium Chloride Carbon Dioxide Anion Gap BUN Creatinine Est GFR (CKD-EPI)AfAm Est GFR (CKD-EPI)NonAf POC Glucometer 192 289 Random Glucose Calcium 08/23/19 08/23/19 06:58 11:49 PT with INR INR Sodium 139 Potassium 4.3 Chloride 105 Carbon Dioxide 27 Anion Gap 7 L BUN 19.9 H Creatinine 1.5 H Est GFR (CKD-EPI)AfAm 42.83 Est GFR (CKD-EPI)NonAf 36.95 POC Glucometer 221 Random Glucose 304 H Calcium 8.4 L S1 S2 RRR Lungs no rales or ronchi Abd- soft ,obese, NT trace edema PLAN Uncontrolled DM UTI AMS Schizophrenia H/o pulmonary embolism h/o breast CA-- s/p chemo and RT HTN obesity -- iv antibiotics -- cultures negative Abd/pelvis CT-- ?pyelonephritis continue with SYnthroid coumadin per INR OOB --iv fluids Problem List - Problems (1) Altered mental status Code(s): R41.82 - ALTERED MENTAL STATUS, UNSPECIFIED Qualifiers: Altered mental status type: disorientation Qualified Code(s): R41.0 - Disorientation, unspecified (2) History of pulmonary embolus (PE) Code(s): Z86.711 - PERSONAL HISTORY OF PULMONARY EMBOLISM (3) Urinary tract infection Code(s): N39.0 - URINARY TRACT INFECTION, SITE NOT SPECIFIED Qualifiers: Urinary tract infection type: acute pyelonephritis Qualified Code(s): N10 - Acute pyelonephritis (4) Breast CA Code(s): C50.919 - MALIGNANT NEOPLASM OF UNSP SITE OF UNSPECIFIED FEMALE BREAST Qualifiers: Breast location: unspecified site of breast (5) Diabetes mellitus type 2, insulin dependent Code(s): E11.9 - TYPE 2 DIABETES MELLITUS WITHOUT COMPLICATIONS; Z79.4 - LONGTERM (CURRENT) USE OF INSULIN (6) Hypertension Code(s): I10 - ESSENTIAL (PRIMARY) HYPERTENSION Qualifiers: Hypertension type: essential hypertension Qualified Code(s): I10 - Essential (primary) hypertension
[2019-08-23] MEDS: WARFARIN NA 10 MG TABLET (FP) PO SCH (18:24)
[2019-08-23] MEDS ORDERED: busPIRone HCL 10 MG TABLET (FP) ONE (23:58)
[2019-08-23] MEDS ORDERED: busPIRone HCL 5 MG TABLET ONE (23:58)
[2019-08-24] MEDS: LORazepam 1 MG TABLET PO PRN (01:52)
[2019-08-24] MEDS: QUEtiapine FUMARATE 200 MG TABLET PO SCH ×2 (01:53→21:50)
[2019-08-24] MEDS: BUSPIRONE HCL 10 MG, BUSPIRONE HCL 5 MG PO SCH ×4 (01:54→21:51)
[2019-08-24] MEDS: GABAPENTIN 100 MG CAPSULE (FP) PO SCH ×4 (01:56→21:50)
[2019-08-24] MEDS: ROSUVASTATIN CA 10 MG TABLET (FP) PO SCH ×2 (01:56→21:50)
[2019-08-24] MEDS: NYSTATIN 500,000 UNITS/5 ML SUSPENSION PO SCH ×4 (02:01→18:15)
[2019-08-24] MEDS: INSULIN (LEVEMIR) 100 UNITS/ML UNITS SQ SCH ×3 (02:01→21:52)
[2019-08-24] MEDS: TOBRAMYCIN 0.3% OPHTH SOLN 5 ML BOTTLE OU SCH ×6 (02:02→21:52)
[2019-08-24] MEDS: SODIUM CHLORIDE 1,000 ML IV SCH (02:57)
[2019-08-24] MEDS ORDERED: busPIRone HCL 5 MG TABLET ONE (06:04)
[2019-08-24] MEDS ORDERED: busPIRone HCL 10 MG TABLET (FP) ONE (06:04)
[2019-08-24] MEDS: LEVOTHYROXINE NA 200 MCG TABLET PO SCH (06:51)
[2019-08-24] MEDS: INSULIN SLIDING SCALE (NOVOLOG) 1 VIAL SQ SCH ×3 (06:52→18:14)
[2019-08-24] MEDS ORDERED: PT OWN MED DRAWER 7, Y5N ONE ×2 (07:49→17:23)
[2019-08-24 08:50] LABS: BLOOD UREA NITROGEN 17.9 mg/dL (7-18); CALCIUM 8.8 mg/dL (8.5-10.1); CREATININE 1.5 mg/dL (0.55-1.3); POTASSIUM 4.2 mmol/L (3.5-5.1)
[2019-08-24 09:24] LABS: INR 1.77 (0.83-1.09)
[2019-08-24] MEDS ORDERED: DEXTROSE 5%-WATER - 50 ML IVPB ONE (10:07)
[2019-08-24] MEDS ORDERED: cefTRIAXone SODIUM 1 GM VIAL ONE (10:07)
[2019-08-24] MEDS: CEFTRIAXONE 1 GM in DEXTROSE 5%-WATER - 50 ML IVPB SCH (10:21)
[2019-08-24] MEDS: QUINAPRIL HCL 10 MG TABLET (FP) PO SCH (10:22)
[2019-08-24] MEDS: ZIPRASIDONE 40 MG CAPSULE (FP) PO SCH ×2 (10:22→18:15)
[2019-08-24] MEDS: ANASTROZOLE 1 MG TABLET PO SCH (10:22)
--- NOTE | 2019-08-24 11:24 | RAPID ---
Physical Examination Vital Signs: Vital Signs Temperature 98.2 F 08/24/19 10:00 Pulse Rate 87 08/24/19 10:00 Respiratory Rate 22 H 08/24/19 10:00 Blood Pressure 156/96 08/24/19 10:00 O2 Sat by Pulse Oximetry (%) 95 08/24/19 10:00 Labs: CBC, BMP 08/21/19 07:21 08/24/19 07:15 Suspected CVA MD Exam Time (Code Sanchez Time): 11:08 CT Stroke ordered: Yes Stat "Code Sanchez" Consult to Neurology called & responded: Yes Last Known Well (Date): 08/24/19 Last Known Well (Time): 11:00 Symptom Discovery (Date): 08/24/19 Symptom Discovery (Time): 11:05 - NIH Stroke Scale/Score Level of consciousness: Alert Ask patient the month and their age: Answers both correctly Ask patient to open & close eyes; make fist and let go: Obeys both correctly Best gaze (horizontal eye movement): Normal Visual field testing: No visual field loss Facial paresis (Show teeth/raise eyebrows/close eyes tight): Minor paralysis ( flattened nasolabial fold, asymmetry on smiling) Motor Function: Left Arm: Normal Motor Function: Right Arm: Normal (extends arm 90 (or 45) degrees for 10 seconds without drift Motor Function: Left Leg: Normal (extends leg 30 degrees for 5 seconds without drift) Motor Function: Right Leg: Normal (extends leg 30 degrees for 5 seconds without drift) Limb Ataxia: Present in two limbs Sensory(Use pinprick test arms,legs,trunk,face/side to side): Normal Best language (Describe picture, name items, read sentences): Mild to moderate aphasia Dysarthria (read several words): Mild to moderate slurring of words Extinction and Inattention: No abnormality NIH Stroke Scale Score: 5
[2019-08-24] MEDS ORDERED: SODIUM CHLORIDE 1,000 ML IV SCH (11:40)
--- NOTE | 2019-08-24 12:15 | PN ---
Progress Note (short form) - Note Progress Note: arabella alfreda called for pt this AM-- she had slurred speech and generalized weakness went for CT head-- no acute stroke She is moving her arms and legs She says she tried getting up from bed was leaning towards her left side Demotte unsteady headaches+ anxious Vital Signs - 24 hr 08/23/19 08/23/19 08/23/19 15:09 18:23 22:00 Temperature 98.4 F 98.4 F 98.2 F Pulse Rate 81 73 75 Respiratory 22 H 22 H 22 H Rate Blood Pressure 141/83 128/85 141/81 O2 Sat by Pulse Oximetry (%) 08/24/19 08/24/19 08/24/19 02:00 06:00 10:00 Temperature 98.2 F 97.7 F 98.2 F Pulse Rate 75 85 87 Respiratory 22 H 22 H 22 H Rate Blood Pressure 141/81 157/95 156/96 O2 Sat by Pulse 95 Oximetry (%) Current Medications Generic Name Dose Route Start Last Admin Trade Name Freq PRN Reason Stop Dose Admin Albuterol Sulfate 1 amp 08/20/19 02:08 Ventolin 0.083% Nebulizer Soln - NEB Q4H PRN SHORT OF BREATH/WHEEZING Anastrozole 1 mg 08/20/19 10:00 08/24/19 10:22 Arimidex - PO 1 mg DAILY ANDREA Administration Buspirone HCl 10 mg/ Buspirone 15 mg 08/20/19 22:00 08/24/19 06:49 HCl 5 mg PO 15 mg TID ANDREA Administration Gabapentin 100 mg 08/20/19 22:00 08/24/19 06:51 Neurontin - PO 100 mg TID ANDREA Administration Ceftriaxone Sodium 1 gm/ 50 mls @ 100 mls/hr 08/21/19 10:00 08/24/19 10:21 Dextrose IVPB 08/26/19 09:59 100 mls/hr DAILY ANDREA Administration Sodium Chloride 1,000 mls @ 100 mls/hr 08/24/19 11:40 Normal Saline - IV ASDIR ANDREA Insulin Aspart 1 vial 08/20/19 07:00 08/24/19 06:52 Novolog Vial Sliding Scale - SQ 2 units TIDAC ANDREA Administration Protocol Insulin Detemir 30 units 08/22/19 15:15 08/24/19 06:53 Levemir Vial SQ 30 units BID@0700,2200 ANDREA Administration Levothyroxine Sodium 200 mcg 08/22/19 07:00 08/24/19 06:51 Synthroid - PO 200 mcg DAILY@0700 ANDREA Administration Lorazepam 1 mg 08/20/19 22:05 08/24/19 01:52 Ativan - PO 1 mg DAILY PRN Administration ANXIETY Nystatin 500,000 units 08/20/19 18:00 08/24/19 06:52 Nystatin Oral Suspension - PO 500,000 units Q6HPO ANDREA Administration Polyethylene Glycol 17 gm 08/20/19 02:22 Miralax (For Daily Use) - PO DAILY PRN CONSTIPATION Quetiapine Fumarate 800 mg 08/20/19 22:00 08/24/19 01:53 Seroquel - PO 800 mg HS ANDREA Administration Quinapril HCl 10 mg 08/21/19 10:00 08/24/19 10:22 Accupril - PO 10 mg DAILY ANDREA Administration Rosuvastatin Calcium 10 mg 08/20/19 22:15 08/24/19 01:56 Crestor - PO 10 mg HS ANDREA Administration Tobramycin Sulfate 1 drop 08/20/19 18:00 08/24/19 10:22 Tobrex Ophthalmic Solution - OU 1 drop Q4HWA ANDREA Administration Warfarin Sodium 10 mg 08/22/19 18:00 08/23/19 18:24 Coumadin - PO 10 mg DAILY@1800 ANDREA Administration Ziprasidone 40 mg 08/21/19 10:27 08/24/19 10:22 Geodon - PO 40 mg BID@0800,1730 ANDREA Administration Laboratory Results - last 24 hr 08/23/19 08/24/19 08/24/19 16:58 01:49 06:48 PT with INR INR Sodium Potassium Chloride Carbon Dioxide Anion Gap BUN Creatinine Est GFR (CKD-EPI)AfAm Est GFR (CKD-EPI)NonAf POC Glucometer 154 231 160 Random Glucose Calcium 08/24/19 08/24/19 08/24/19 07:15 08:55 11:13 PT with INR 21.00 H INR 1.77 H Sodium 143 Potassium 4.2 Chloride 111 H Carbon Dioxide 24 Anion Gap 8 BUN 17.9 Creatinine 1.5 H Est GFR (CKD-EPI)AfAm 42.83 Est GFR (CKD-EPI)NonAf 36.95 POC Glucometer 80 Random Glucose 152 H Calcium 8.8 S1 S2 RRR Lungs no rales or ronchi Abd- soft ,obese, NT trace edema PLAN acute cva Uncontrolled DM UTI AMS Schizophrenia H/o pulmonary embolism h/o breast CA-- s/p chemo and RT HTN obesity -- CT head negative for acute infarct, bleed -- 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 stroke codes-- Dr Drummond-- no need for CTA as she does not have much neuro deficits -- will bridge lovenox with coumadin -- iv antibiotics -- cultures negative Abd/pelvis CT-- ?pyelonephritis continue with SYnthroid coumadin per INR OOB --iv fluids Problem List - Problems (1) Altered mental status Code(s): R41.82 - ALTERED MENTAL STATUS, UNSPECIFIED Qualifiers: Altered mental status type: disorientation Qualified Code(s): R41.0 - Disorientation, unspecified (2) History of pulmonary embolus (PE) Code(s): Z86.711 - PERSONAL HISTORY OF PULMONARY EMBOLISM (3) Urinary tract infection Code(s): N39.0 - URINARY TRACT INFECTION, SITE NOT SPECIFIED Qualifiers: Urinary tract infection type: acute pyelonephritis Qualified Code(s): N10 - Acute pyelonephritis (4) Breast CA Code(s): C50.919 - MALIGNANT NEOPLASM OF UNSP SITE OF UNSPECIFIED FEMALE BREAST Qualifiers: Breast location: unspecified site of breast (5) Diabetes mellitus type 2, insulin dependent Code(s): E11.9 - TYPE 2 DIABETES MELLITUS WITHOUT COMPLICATIONS; Z79.4 - ASSISTED (CURRENT) USE OF INSULIN (6) Hypertension Code(s): I10 - ESSENTIAL (PRIMARY) HYPERTENSION Qualifiers: Hypertension type: essential hypertension Qualified Code(s): I10 - Essential (primary) hypertension
[2019-08-24] MEDS ORDERED: ENOXAPARIN NA (PORCINE) 100 MG/1 ML DISP.SYRIN SQ SCH (12:30)
[2019-08-24] MEDS: ENOXAPARIN NA (PORCINE) 100 MG/1 ML DISP.SYRIN SQ SCH (13:16)
--- NOTE | 2019-08-24 13:51 | CONSULT ---
Consult Consult Specialty:: Nephrology Reason for Consultation:: YOU - History of Present Illness Chief Complaint: altered mental status History of Present Illness: Pt is a 63 year old female with pmhx of dm, pancreatitis, obesity, colitis, copd , htn, epilepsy, breast ca and schizophrenia who presents to the ER with altered mental status. She was admitted for workup. A rapid response was called on her today for r/o cva. I was called to evaluate her for elevated creatinine as they were going to do a cta. Medical team decided CTA not warranted after discussion with neuro. Pt is awake and alert. She is able to give history. SHe complains of decreased sensation of her left face. She denies shortness of breath. 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 Cardio/Vascular: Yes: HTN, Hyperlipdemia Pulmonary: Yes: COPD, O2 Dependent, Sleep Apnea Gastrointestinal: Yes: Constipation, Pancreatitis Hepatobiliary: Yes: Cholelithiasis Renal/: Yes: Renal Calculi, Other (urge incontinence, enuresis) Psych: Yes: Anxiety, Bipolar (schizoaffective bipolar) Musculoskeletal: Yes: Osteoarthritis Endocrine: Yes: Diabetes Mellitus, Hypothyroidism Additional Medical History: morbid obesity - Past Surgical History Past Surgical History: Yes: Breast Biopsy (left biopsy benign and right lumpectomy for cancer), Cholecystectomy (laparoscopic), Joint Replacement (left hip) - Alcohol/Substance Use Hx Alcohol Use: No History of Substance Use: reports: None - Smoking History Smoking history: Former smoker Have you smoked in the past 12 months: No Aproximately how many cigarettes per day: 20 If you are a former smoker, when did you quit?: March 2017 - Social History ADL: Independent (walks with cane) Home Medications - Allergies Allergies/Adverse Reactions: Allergies Allergy/AdvReac Type Severity Reaction Status Date / Time acetaminophen [From Tylenol] Allergy "VOMITS" Verified 08/15/19 18:56 almond oil Allergy "ITCHY" Verified 08/15/19 18:56 citalopram hydrobromide Allergy "STROKE Verified 08/15/19 18:56 [From Celexa] LIKE SYMPTOMS" divalproex sodium Allergy "PANCREATIT Verified 08/15/19 18:56 [From Depakote] IS" Iodinated Contrast Media Allergy Verified 08/15/19 18:56 [Iodinated Contrast Media - IV Dye] lamotrigine [From Lamictal] Allergy "FACE Verified 08/15/19 18:56 SWELLS" lithium [[place]] Allergy "SEIZURES,SWOLLEN Verified 08/15/19 18:56 ARMS/LEGS" meperidine HCl [From Demerol] Allergy "TURNS RED Verified 08/15/19 18:56 WHEN MIXED WITH NOVACAINE" shellfish derived Allergy "TURNED Verified 08/15/19 18:56 RED /ITCHY" sulfamethoxazole Allergy "COLLAPSED, Verified 08/15/19 18:56 [From Bactrim] HEART ISSUE" topiramate [From Topamax] Allergy TO Verified 08/15/19 18:56 POISONOUS LEVELS" trimethoprim [From Bactrim] Allergy "COLLAPSED,HEART Verified 08/15/19 18:56 ISSUE" - Home Medications Home Medications: Ambulatory Orders Buspirone HCl [Buspar] 15 mg PO TID 03/20/14 Lorazepam [Ativan] 2 mg PO HS PRN 03/20/14 Rosuvastatin Calcium [Crestor] 10 mg PO HS 03/20/14 FA/Mv,Ca,Iron,Min/Lycopene/Lut [Centrum Tablet] 1 each PO DAILY 07/03/14 Anastrozole [Arimidex -] 1 mg PO DAILY #0 12/06/16 Aspirin [ASA -] 81 mg PO DAILY #0 12/06/16 Gabapentin [Neurontin -] 100 mg PO Q8H #0 12/06/16 Insulin (Levemir) [Levemir Flexpen -] 10 units SQ HS #0 12/06/16 Insulin (Novolog) [Novolog Flexpen -] 0 units SQ ASDIR #0 12/06/16 Levothyroxine [Synthroid -] 300 mcg PO DAILY #0 12/06/16 Quetiapine Fumarate [Seroquel -] 800 mg PO HS #0 12/06/16 Quinapril HCl [Accupril -] 10 mg PO DAILY #0 12/06/16 Ziprasidone HCl [Geodon] 40 mg PO BID #0 12/06/16 Albuterol 0.083% Nebulizer Blaire [Ventolin 0.083% Nebulizer Soln -] 1 amp NEB Q4H PRN amp 09/28/17 Ibuprofen [Motrin -] 400 mg PO TID PRN #21 tablet 11/13/17 Ketoconozole 2% Cream [Nizoral 2% Cream -] 1 applic TP DAILY #1 tube 09/28/17 Polyethylene Glycol 3350 [Miralax 119 gm Btl -] 17 gm PO DAILY PRN #1 bag Ziprasidone [Geodon -] 40 mg PO BID capsule 09/28/17 Cephalexin [Keflex] 500 mg PO BID 5 Days #10 capsule 08/16/19 Family Medical History Family History: Denies Review of Systems - Review of Systems Constitutional: reports: Malaise Eyes: reports: No Symptoms HENT: reports: No Symptoms Neck: reports: No Symptoms Cardiovascular: reports: No Symptoms Respiratory: reports: No Symptoms Gastrointestinal: reports: No Symptoms Genitourinary: reports: No Symptoms Musculoskeletal: reports: Muscle Weakness Integumentary: reports: No Symptoms Neurological: reports: Other (left face numbness) Endocrine: reports: No Symptoms Hematology/Lymphatic: reports: No Symptoms Psychiatric: reports: No Symptoms Physical Exam Vital Signs: Vital Signs Temperature 98.7 F 08/24/19 11:05 Pulse Rate 86 08/24/19 11:05 Respiratory Rate 20 08/24/19 11:05 Blood Pressure 146/78 08/24/19 11:05 O2 Sat by Pulse Oximetry (%) 95 08/24/19 10:00 Constitutional: Yes: Calm Eyes: Yes: Conjunctiva Clear HENT: Yes: Atraumatic Neck: Yes: Supple Cardiovascular: Yes: S1, S2 Respiratory: Yes: CTA Bilaterally Gastrointestinal: Yes: Normal Bowel Sounds, Soft Renal/: Yes: WNL Musculoskeletal: Yes: WNL Edema: No Integumentary: Yes: WNL Neurological: Yes: Oriented, Other (left face numbness) Psychiatric: Yes: Oriented Labs: CBC, BMP 08/21/19 07:21 08/24/19 07:15 Imaging - Results Cat Scan: Report Reviewed Problem List - Problems (1) Altered mental status Code(s): R41.82 - ALTERED MENTAL STATUS, UNSPECIFIED Qualifiers: Altered mental status type: disorientation Qualified Code(s): R41.0 - Disorientation, unspecified (2) Urinary tract infection Code(s): N39.0 - URINARY TRACT INFECTION, SITE NOT SPECIFIED Qualifiers: Urinary tract infection type: acute pyelonephritis Qualified Code(s): N10 - Acute pyelonephritis (3) COPD (chronic obstructive pulmonary disease) Code(s): J44.9 - CHRONIC OBSTRUCTIVE PULMONARY DISEASE, UNSPECIFIED Qualifiers: COPD type: unspecified COPD Qualified Code(s): J44.9 - Chronic obstructive pulmonary disease, unspecified Assessment/Plan Current Medications Generic Name Dose Route Start Last Admin Trade Name Freq PRN Reason Stop Dose Admin Albuterol Sulfate 1 amp 08/20/19 02:08 Ventolin 0.083% Nebulizer Soln - NEB Q4H PRN SHORT OF BREATH/WHEEZING Anastrozole 1 mg 08/20/19 10:00 08/24/19 10:22 Arimidex - PO 1 mg DAILY ANDREA Administration Buspirone HCl 10 mg/ Buspirone 15 mg 08/20/19 22:00 08/24/19 06:49 HCl 5 mg PO 15 mg TID ANDREA Administration Enoxaparin Sodium 150 mg 08/24/19 13:15 08/24/19 13:16 Lovenox - SQ 150 mg Q12H ANDREA Administration Gabapentin 100 mg 08/20/19 22:00 08/24/19 06:51 Neurontin - PO 100 mg TID ANDREA Administration Ceftriaxone Sodium 1 gm/ 50 mls @ 100 mls/hr 08/21/19 10:00 08/24/19 10:21 Dextrose IVPB 08/26/19 09:59 100 mls/hr DAILY ANDREA Administration Sodium Chloride 1,000 mls @ 100 mls/hr 08/24/19 11:40 08/24/19 13:17 Normal Saline - IV 100 mls/hr ASDIR ANDREA Administration Insulin Aspart 1 vial 08/20/19 07:00 08/24/19 13:10 Novolog Vial Sliding Scale - SQ Not Given TIDAC [facility] Protocol Insulin Detemir 30 units 08/22/19 15:15 08/24/19 06:53 Levemir Vial SQ 30 units BID@0700,2200 ANDREA Administration Levothyroxine Sodium 200 mcg 08/22/19 07:00 08/24/19 06:51 Synthroid - PO 200 mcg DAILY@0700 ANDREA Administration Lorazepam 1 mg 08/20/19 22:05 08/24/19 01:52 Ativan - PO 1 mg DAILY PRN Administration ANXIETY Nystatin 500,000 units 08/20/19 18:00 08/24/19 13:11 Nystatin Oral Suspension - PO Not Given Q6HPO ANDREA Polyethylene Glycol 17 gm 08/20/19 02:22 Miralax (For Daily Use) - PO DAILY PRN CONSTIPATION Quetiapine Fumarate 800 mg 08/20/19 22:00 08/24/19 01:53 Seroquel - PO 800 mg HS ANDREA Administration Quinapril HCl 10 mg 08/21/19 10:00 08/24/19 10:22 Accupril - PO 10 mg DAILY ANDREA Administration Rosuvastatin Calcium 10 mg 08/20/19 22:15 08/24/19 01:56 Crestor - PO 10 mg HS ANDREA Administration Tobramycin Sulfate 1 drop 08/20/19 18:00 08/24/19 10:22 Tobrex Ophthalmic Solution - OU 1 drop Q4HWA ANDREA Administration Warfarin Sodium 10 mg 08/22/19 18:00 08/23/19 18:24 Coumadin - PO 10 mg DAILY@1800 ANDREA Administration Ziprasidone 40 mg 08/21/19 10:27 08/24/19 10:22 Geodon - PO 40 mg BID@0800,1730 ANDREA Administration Impression 1. CKD with acute component 2. r/o cva vs tia - neuro on board 3. uti 4. obesity 5. schizophrenia 6. dm 7. htn Plan - will start 1/2 ns - monitor renal function - check renal ultrasound - check ua - pt appears clinically dehydrated - hold pranav of renal function worsens - monitor bp
--- NOTE | 2019-08-24 15:45 | EKG ---
Test Reason : Blood Pressure : / mmHG Vent. Rate : 081 BPM Atrial Rate : 081 BPM P-R Int : 172 ms QRS Dur : 098 ms QT Int : 388 ms P-R-T Axes : 062 -35 050 degrees QTc Int : 450 ms NORMAL SINUS RHYTHM LEFT AXIS DEVIATION CANNOT RULE OUT ANTERIOR INFARCT (CITED ON OR BEFORE 15-AUG-2019) ABNORMAL ECG WHEN COMPARED WITH ECG OF 19-AUG-2019 22:25, QRS DURATION HAS INCREASED CRITERIA FOR INFERIOR INFARCT ARE NO LONGER PRESENT Confirmed by ANTONIETA GOMEZ MD ([id number]) on 08/24/2019 3:44:53 PM Referred By: Pankaj MURO Confirmed By:ANTONIETA GOMEZ MD
--- NOTE | 2019-08-24 15:58 | ECHO ---
Name: BERNARD PETERSEN Exam:Adult Echocardiogram Study Date: 08/24/2019 12:12 PM Age: 63 yrs Reason For Study: Stroke Height: 74 in Weight: 342 lb BSA: 2.7 m2 MMode/2D Measurements & Calculations IVSd: 0.95 cm Ao root diam: 2.8 cm LVIDd: 5.7 cm LVIDs: 4.0 cm LVPWd: 0.88 cm EDV(Teich): 163.0 ml LVOT diam: 2.2 cm ESV(Teich): 68.0 ml Doppler Measurements & Calculations MV E max thom: 83.4 cm/sec Ao V2 max: 106.0 cm/sec MV A max thom: 74.5 cm/sec Ao max P.5 mmHg MV E/A: 1.1 MV dec time: 0.19 sec DEYANIRA(V,D): 2.8 cm2 LV V1 max P.4 mmHg MR max thom: 189.4 cm/sec LV V1 max: 77.1 cm/sec MR max P.4 mmHg TR max thom: 220.8 cm/sec Med Peak E' Thom: 10.3 cm/sec TR max P.6 mmHg Med E/e': 8.1 Lat Peak E' Thom: 7.5 cm/sec Lat E/e': 11.1 Procedure The study was technically difficult with many images being suboptimal in quality. Left Ventricle The left ventricle is mildly dilated. The left ventricular ejection fraction is normal. E/A reversal consistent with but not diagnostic of poor LV compliance. Regional wall motion abnormalities cannot b e excluded due to limited visualization. Right Ventricle The right ventricle is not well visualized. Atria The left atrium is not well visualized. Right atrium not well visualized. Mitral Valve The mitral valve is not well visualized. There is no mitral valve stenosis. There is trace to mild mi tral regurgitation. Tricuspid Valve The tricuspid valve is not well visualized. There is no tricuspid stenosis. There is mild tricuspid regurgitation. Right ventricular systolic pressure is normal. Aortic Valve The aortic valve is not well visualized. No hemodynamically significant valvular aortic stenosis. No aortic regurgitation is present. Pulmonic Valve The pulmonic valve is not well visualized. Great Vessels The aortic root is normal size. Pericardium/Pleura There is no pericardial effusion. Interpretation Summary The study was technically difficult with many images being suboptimal in quality. The left ventricle is mildly dilated. The left ventricular ejection fraction is normal. Regional wall motion abnormalities cannot be excluded due to limited visualization. E/A reversal consistent with but not diagnostic of poor LV compliance There is trace to mild mitral regurgitation. There is mild tricuspid regurgitation. Right ventricular systolic pressure is normal. MD Ryan Lombardi 08/24/2019 03:58 PM
[2019-08-24] MEDS: WARFARIN NA 10 MG TABLET (FP) PO SCH (18:12)
--- NOTE | 2019-08-24 18:31 | CON.NEURO ---
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 Cardio/Vascular: Yes: HTN, Hyperlipdemia Pulmonary: Yes: COPD, O2 Dependent, Sleep Apnea Gastrointestinal: Yes: Constipation, Pancreatitis Hepatobiliary: Yes: Cholelithiasis Renal/: Yes: Renal Calculi, Other (urge incontinence, enuresis) Psych: Yes: Anxiety, Bipolar (schizoaffective bipolar) Musculoskeletal: Yes: Osteoarthritis Endocrine: Yes: Diabetes Mellitus, Hypothyroidism Additional Medical History: morbid obesity - Past Surgical History Past Surgical History: Yes: Breast Biopsy (left biopsy benign and right lumpectomy for cancer), Cholecystectomy (laparoscopic), Joint Replacement (left hip) - Alcohol/Substance Use Hx Alcohol Use: No History of Substance Use: reports: None - Smoking History Smoking history: Former smoker Have you smoked in the past 12 months: No Aproximately how many cigarettes per day: 20 If you are a former smoker, when did you quit?: March 2017 - Social History ADL: Independent (walks with cane) Home Medications - Allergies Allergies/Adverse Reactions: Allergies Allergy/AdvReac Type Severity Reaction Status Date / Time acetaminophen [From Tylenol] Allergy "VOMITS" Verified 08/15/19 18:56 almond oil Allergy "ITCHY" Verified 08/15/19 18:56 citalopram hydrobromide Allergy "STROKE Verified 08/15/19 18:56 [From Celexa] LIKE SYMPTOMS" divalproex sodium Allergy "PANCREATIT Verified 08/15/19 18:56 [From Depakote] IS" Iodinated Contrast Media Allergy Verified 08/15/19 18:56 [Iodinated Contrast Media - IV Dye] lamotrigine [From Lamictal] Allergy "FACE Verified 08/15/19 18:56 SWELLS" lithium [[place]] Allergy "SEIZURES,SWOLLEN Verified 08/15/19 18:56 ARMS/LEGS" meperidine HCl [From Demerol] Allergy "TURNS RED Verified 08/15/19 18:56 WHEN MIXED WITH NOVACAINE" shellfish derived Allergy "TURNED Verified 08/15/19 18:56 RED /ITCHY" sulfamethoxazole Allergy "COLLAPSED, Verified 08/15/19 18:56 [From Bactrim] HEART ISSUE" topiramate [From Topamax] Allergy TO Verified 08/15/19 18:56 POISONOUS LEVELS" trimethoprim [From Bactrim] Allergy "COLLAPSED,HEART Verified 08/15/19 18:56 ISSUE" - Home Medications Home Medications: Ambulatory Orders Buspirone HCl [Buspar] 15 mg PO TID 03/20/14 Lorazepam [Ativan] 2 mg PO HS PRN 03/20/14 Rosuvastatin Calcium [Crestor] 10 mg PO HS 03/20/14 FA/Mv,Ca,Iron,Min/Lycopene/Lut [Centrum Tablet] 1 each PO DAILY 07/03/14 Anastrozole [Arimidex -] 1 mg PO DAILY #0 12/06/16 Aspirin [ASA -] 81 mg PO DAILY #0 12/06/16 Gabapentin [Neurontin -] 100 mg PO Q8H #0 12/06/16 Insulin (Levemir) [Levemir Flexpen -] 10 units SQ HS #0 12/06/16 Insulin (Novolog) [Novolog Flexpen -] 0 units SQ ASDIR #0 12/06/16 Levothyroxine [Synthroid -] 300 mcg PO DAILY #0 12/06/16 Quetiapine Fumarate [Seroquel -] 800 mg PO HS #0 12/06/16 Quinapril HCl [Accupril -] 10 mg PO DAILY #0 12/06/16 Ziprasidone HCl [Geodon] 40 mg PO BID #0 12/06/16 Albuterol 0.083% Nebulizer Blaire [Ventolin 0.083% Nebulizer Soln -] 1 amp NEB Q4H PRN amp 09/28/17 Ibuprofen [Motrin -] 400 mg PO TID PRN #21 tablet 09/28/17 Ketoconozole 2% Cream [Nizoral 2% Cream -] 1 applic TP DAILY #1 tube 09/28/17 Polyethylene Glycol 3350 [Miralax 119 gm Btl -] 17 gm PO DAILY PRN #1 bag Ziprasidone [Geodon -] 40 mg PO BID capsule 09/28/17 Cephalexin [Keflex] 500 mg PO BID 5 Days #10 capsule 08/16/19 Physical Exam-Neuro Vital Signs: Vital Signs Temperature 98.2 F 08/24/19 15:00 Pulse Rate 80 08/24/19 15:00 Respiratory Rate 20 08/24/19 15:00 Blood Pressure 104/65 08/24/19 15:00 O2 Sat by Pulse Oximetry (%) 95 08/24/19 10:00 Labs: CBC, BMP 08/21/19 07:21 08/24/19 07:15 INR, PTT INR 1.77 (0.83-1.09) H 08/24/19 08:55 Assessment/Plan cc Episode of slurring of speech and generalized weakness HPI 63 year old female with multiple medical problem including DM, Pancreatitis , COLITIS, COPD, HTN, HLD, SEIZURE , Breast cancer, sleep apnea, obesisty. Patient developed sudden onset slurring of speech , and generalized weakness. Her symptoms resolved. Her inr was 1.7 . Patient has normal ct head . Patient is feeling fine and now back to normal self. PMH as above Allergies/Adverse Reactions: Allergies Allergy/AdvReac Type Severity Reaction Status Date / Time acetaminophen [From Tylenol] Allergy "VOMITS" Verified 08/15/19 18:56 almond oil Allergy "ITCHY" Verified 08/15/19 18:56 citalopram hydrobromide Allergy "STROKE Verified 08/15/19 18:56 [From Celexa] LIKE SYMPTOMS" divalproex sodium Allergy "PANCREATIT Verified 08/15/19 18:56 [From Depakote] IS" Iodinated Contrast Media Allergy Verified 08/15/19 18:56 [Iodinated Contrast Media - IV Dye] lamotrigine [From Lamictal] Allergy "FACE Verified 08/15/19 18:56 SWELLS" lithium [[place]] Allergy "SEIZURES,SWOLLEN Verified 08/15/19 18:56 ARMS/LEGS" meperidine HCl [From Demerol] Allergy "TURNS RED Verified 08/15/19 18:56 WHEN MIXED WITH NOVACAINE" shellfish derived Allergy "TURNED Verified 08/15/19 18:56 RED /ITCHY" sulfamethoxazole Allergy "COLLAPSED, Verified 08/15/19 18:56 [From Bactrim] HEART ISSUE" topiramate [From Topamax] Allergy TO Verified 08/15/19 18:56 POISONOUS LEVELS" trimethoprim [From Bactrim] Allergy "COLLAPSED,HEART Verified 08/15/19 18:56 ISSUE" Home Medications: Buspirone HCl [Buspar] 15 mg PO TID 03/20/14 Lorazepam [Ativan] 2 mg PO HS PRN 03/20/14 Rosuvastatin Calcium [Crestor] 10 mg PO HS 03/20/14 FA/Mv,Ca,Iron,Min/Lycopene/Lut [Centrum Tablet] 1 each PO DAILY 07/03/14 Anastrozole [Arimidex -] 1 mg PO DAILY #0 12/06/16 Aspirin [ASA -] 81 mg PO DAILY #0 12/06/16 Gabapentin [Neurontin -] 100 mg PO Q8H #0 12/06/16 Insulin (Levemir) [Levemir Flexpen -] 10 units SQ HS #0 12/06/16 Insulin (Novolog) [Novolog Flexpen -] 0 units SQ ASDIR #0 12/06/16 Levothyroxine [Synthroid -] 300 mcg PO DAILY #0 12/06/16 Quetiapine Fumarate [Seroquel -] 800 mg PO HS #0 12/06/16 Quinapril HCl [Accupril -] 10 mg PO DAILY #0 12/06/16 Ziprasidone HCl [Geodon] 40 mg PO BID #0 12/06/16 Albuterol 0.083% Nebulizer Blaire [Ventolin 0.083% Nebulizer Soln -] 1 amp NEB Q4H PRN amp 09/28/17 Ibuprofen [Motrin -] 400 mg PO TID PRN #21 tablet 09/28/17 Ketoconozole 2% Cream [Nizoral 2% Cream -] 1 applic TP DAILY #1 tube 09/28/17 Polyethylene Glycol 3350 [Miralax 119 gm Btl -] 17 gm PO DAILY PRN #1 bag Ziprasidone [Geodon -] 40 mg PO BID capsule 09/28/17 Cephalexin [Keflex] 500 mg PO BID 5 Days #10 capsule 08/16/19 FH,ROS,SH reviewed in chart NEUROLOGICAL EXAMINATION Alert oriented x 3, neck is supple, vss no face asymmetry, eomi moving all extremity there is distal sensory diminished and reflex are generalized diminished Assessment/Plan 63 year old female with multiple medical problem including Speech difficulty and generalized weakness. It is not clear if she has tia, given she has allergy to contrast, cta was not obtained and she does not need. and it is not clear if she has tia Plan: I suggest to do mri of brain, continue warfarin and statin - mri of brain , no need for contrast - continue current level of care Thanking you so much Sanket Drummond MD Family Medical History Family History: Unable to Obtain (Unable to obtain due to AMS ) Review of Systems Unable to obtain ROS, reason: AMS
[2019-08-24] MEDS ORDERED: SODIUM CHLORIDE 0.45% 1,000 ML IV SCH (20:30)
[2019-08-25] MEDS: NYSTATIN 500,000 UNITS/5 ML SUSPENSION PO SCH ×4 (00:04→17:02)
[2019-08-25] MEDS: ENOXAPARIN NA (PORCINE) 100 MG/1 ML DISP.SYRIN SQ SCH (00:31)
[2019-08-25] MEDS ORDERED: POLYETHYLENE GLYCOL 3350 119 GM BTL PO PRN (06:06)
[2019-08-25] MEDS ORDERED: LORazepam 1 MG TABLET PO PRN (06:06)
[2019-08-25] MEDS: BUSPIRONE HCL 10 MG, BUSPIRONE HCL 5 MG PO SCH ×3 (06:15→22:14)
[2019-08-25] MEDS: GABAPENTIN 100 MG CAPSULE (FP) PO SCH ×3 (06:16→22:14)
[2019-08-25] MEDS: TOBRAMYCIN 0.3% OPHTH SOLN 5 ML BOTTLE OU SCH ×5 (06:19→22:13)
[2019-08-25 06:20] LABS: HEMATOCRIT 31.2 % (32.4-45.2); HEMOGLOBIN 10.1 GM/dL (10.7-15.3); MCH 29.2 pg (25.7-33.7); MCHC 32.4 g/dl (32.0-36.0); MEAN CELL VOLUME 90.2 fl (80-96); PLATELET COUNT 269 K/MM3 (134-434); RBC 3.46 M/mm3 (3.60-5.2); RDW 15.7 % (11.6-15.6); WHITE BLOOD COUNT 6.4 K/mm3 (4.0-10.0)
[2019-08-25] MEDS: INSULIN (LEVEMIR) 100 UNITS/ML UNITS SQ SCH ×2 (06:27→22:15)
[2019-08-25] MEDS: INSULIN SLIDING SCALE (NOVOLOG) 1 VIAL SQ SCH ×3 (06:27→16:50)
[2019-08-25 06:34] LABS: INR 2.33 (0.83-1.09); PROTHROMBIN TIME (PATIENT) 27.7 SEC (9.7-13.0)
[2019-08-25] MEDS: LEVOTHYROXINE NA 200 MCG TABLET PO SCH (07:07)
[2019-08-25 07:31] LABS: ALBUMIN 2.7 g/dl (3.4-5.0); BILIRUBIN,TOTAL 0.2 mg/dL (0.2-1); BLOOD UREA NITROGEN 21.8 mg/dL (7-18); CALCIUM 8.7 mg/dL (8.5-10.1); CREATININE 1.5 mg/dL (0.55-1.3); POTASSIUM 4.3 mmol/L (3.5-5.1); TOT PROT 7.1 g/dl (6.4-8.2)
[2019-08-25] MEDS: ALBUTEROL SO4 0.083% IH SOL 2.5 MG/3 ML VIAL.NEB. NEB PRN ×2 (07:42→20:05)
[2019-08-25] MEDS ORDERED: PT OWN MED DRAWER 7, Y5N ONE ×4 (09:02→22:08)
[2019-08-25] MEDS ORDERED: DEXTROSE 5%-WATER - 50 ML IVPB ONE (09:03)
[2019-08-25] MEDS ORDERED: cefTRIAXone SODIUM 1 GM VIAL ONE (09:03)
[2019-08-25] MEDS: ANASTROZOLE 1 MG TABLET PO SCH (09:39)
[2019-08-25] MEDS: QUINAPRIL HCL 10 MG TABLET (FP) PO SCH (09:39)
[2019-08-25] MEDS: ZIPRASIDONE 40 MG CAPSULE (FP) PO SCH ×2 (09:39→16:51)
[2019-08-25] MEDS ORDERED: CEFTRIAXONE 1 GM in DEXTROSE 5%-WATER - 50 ML IVPB SCH (10:00)
--- NOTE | 2019-08-25 12:21 | PN ---
Progress Note (short form) - Note Progress Note: s/p code alfreda feels well pt transferred to [facility] No complaints no slurred speech no weakness Vital Signs - 24 hr 08/24/19 08/24/19 08/24/19 15:00 17:00 21:00 Temperature 98.2 F 98.2 F 98.5 F Pulse Rate 80 81 81 Respiratory 20 20 20 Rate Blood Pressure 104/65 151/62 143/67 O2 Sat by Pulse 96 Oximetry (%) 08/25/19 08/25/19 08/25/19 01:24 05:00 09:00 Temperature 98.2 F 98.2 F 98.3 F Pulse Rate 80 88 77 Respiratory 20 20 20 Rate Blood Pressure 148/66 146/62 151/94 O2 Sat by Pulse 96 Oximetry (%) Current Medications Generic Name Dose Route Start Last Admin Trade Name Freq PRN Reason Stop Dose Admin Albuterol Sulfate 1 amp 08/25/19 06:06 08/25/19 07:42 Ventolin 0.083% Nebulizer Soln - NEB 1 amp Q4H PRN Administration SHORT OF BREATH/WHEEZING Anastrozole 1 mg 08/25/19 10:00 08/25/19 09:39 Arimidex - PO 1 mg DAILY ANDREA Administration Buspirone HCl 10 mg/ Buspirone 15 mg 08/25/19 14:00 HCl 5 mg PO TID ANDREA Enoxaparin Sodium 150 mg 08/25/19 13:15 Lovenox - SQ Q12H NADREA Gabapentin 100 mg 08/25/19 14:00 Neurontin - PO TID ANDREA Sodium Chloride 1,000 mls @ 83 mls/hr 08/24/19 20:30 08/24/19 20:33 1/2 Normal Saline IV 83 mls/hr ASDIR ANDREA Administration Ceftriaxone Sodium 1 gm/ 50 mls @ 100 mls/hr 08/25/19 10:00 08/25/19 09:40 Dextrose IVPB 08/26/19 09:59 100 mls/hr DAILY ANDREA Administration Insulin Aspart 1 vial 08/25/19 07:00 08/25/19 06:27 Novolog Vial Sliding Scale - SQ 6 units TIDAC ANDREA Administration Protocol Insulin Detemir 30 units 08/25/19 07:00 08/25/19 06:27 Levemir Vial SQ 30 units BID@0700,2200 ANDREA Administration Levothyroxine Sodium 200 mcg 08/25/19 07:00 08/25/19 07:07 Synthroid - PO 200 mcg DAILY@0700 [facility] Administration Lorazepam 1 mg 08/25/19 06:06 Ativan - PO DAILY PRN ANXIETY Nystatin 500,000 units 08/25/19 12:00 Nystatin Oral Suspension - PO Q6HPO ANDREA Polyethylene Glycol 17 gm 08/25/19 06:06 Miralax (For Daily Use) - PO DAILY PRN CONSTIPATION Quetiapine Fumarate 800 mg 08/25/19 22:00 Seroquel - PO HS ANDREA Quinapril HCl 10 mg 08/25/19 10:00 08/25/19 09:39 Accupril - PO 10 mg DAILY ANDREA Administration Rosuvastatin Calcium 10 mg 08/25/19 22:00 Crestor - PO HS ANDREA Tobramycin Sulfate 1 drop 08/25/19 10:00 08/25/19 09:40 Tobrex Ophthalmic Solution - OU 1 drop Q4HWA [facility] Administration Warfarin Sodium 10 mg 08/25/19 18:00 Coumadin - PO DAILY@1800 [facility] Ziprasidone 40 mg 08/25/19 08:00 08/25/19 09:39 Geodon - PO 40 mg BID@0800,1730 [facility] Administration Laboratory Results - last 24 hr 08/21/19 08/24/19 08/24/19 11:00 17:19 21:17 WBC RBC Hgb Hct MCV MCH MCHC RDW Plt Count MPV PT with INR INR Sodium Potassium Chloride Carbon Dioxide Anion Gap BUN Creatinine Est GFR (CKD-EPI)AfAm Est GFR (CKD-EPI)NonAf POC Glucometer 165 204 Random Glucose Calcium Total Bilirubin AST ALT Alkaline Phosphatase Total Protein Albumin Stool O & P Wet [place] Permanent Slide Final report 08/25/19 08/25/19 08/25/19 05:40 05:40 05:40 WBC 6.4 RBC 3.46 L Hgb 10.1 L Hct 31.2 L MCV 90.2 MCH 29.2 MCHC 32.4 RDW 15.7 H Plt Count 269 MPV 8.0 PT with INR 27.70 H INR 2.33 H Sodium 142 Potassium 4.3 Chloride 108 H Carbon Dioxide 27 Anion Gap 7 L BUN 21.8 H Creatinine 1.5 H Est GFR (CKD-EPI)AfAm 42.83 Est GFR (CKD-EPI)NonAf 36.95 POC Glucometer Random Glucose 259 H Calcium 8.7 Total Bilirubin 0.2 AST 17 ALT 29 Alkaline Phosphatase 109 Total Protein 7.1 Albumin 2.7 L Stool O & P Wet [place] Permanent Slide 08/25/19 08/25/19 06:23 11:51 WBC RBC Hgb Hct MCV MCH MCHC RDW Plt Count MPV PT with INR INR Sodium Potassium Chloride Carbon Dioxide Anion Gap BUN Creatinine Est GFR (CKD-EPI)AfAm Est GFR (CKD-EPI)NonAf POC Glucometer 253 221 Random Glucose Calcium Total Bilirubin AST ALT Alkaline Phosphatase Total Protein Albumin Stool O & P Wet [place] Permanent Slide S1 S2 RRR Lungs no rales or ronchi Abd- soft ,obese, NT trace edema PLAN ?TIA Uncontrolled DM UTI AMS Schizophrenia H/o pulmonary embolism h/o breast CA-- s/p chemo and RT HTN obesity -- CT head negative for acute infarct, bleed -- MRI brain-- negative for acute or subacute infarct -- iv antibiotics -- cultures negative --dc iv fluids Abd/pelvis CT-- ?pyelonephritis continue with SYnthroid coumadin per INR-->dc Lovenox OOB Problem List - Problems (1) Altered mental status Code(s): R41.82 - ALTERED MENTAL STATUS, UNSPECIFIED Qualifiers: Altered mental status type: disorientation Qualified Code(s): R41.0 - Disorientation, unspecified (2) History of pulmonary embolus (PE) Code(s): Z86.711 - PERSONAL HISTORY OF PULMONARY EMBOLISM (3) Urinary tract infection Code(s): N39.0 - URINARY TRACT INFECTION, SITE NOT SPECIFIED Qualifiers: Urinary tract infection type: acute pyelonephritis Qualified Code(s): N10 - Acute pyelonephritis (4) Breast CA Code(s): C50.919 - MALIGNANT NEOPLASM OF UNSP SITE OF UNSPECIFIED FEMALE BREAST Qualifiers: Breast location: unspecified site of breast (5) Diabetes mellitus type 2, insulin dependent Code(s): E11.9 - TYPE 2 DIABETES MELLITUS WITHOUT COMPLICATIONS; Z79.4 - USP (CURRENT) USE OF INSULIN (6) Hypertension Code(s): I10 - ESSENTIAL (PRIMARY) HYPERTENSION Qualifiers: Hypertension type: essential hypertension Qualified Code(s): I10 - Essential (primary) hypertension
[2019-08-25] MEDS ORDERED: ENOXAPARIN NA (PORCINE) 100 MG/1 ML DISP.SYRIN SQ SCH (13:15)
--- NOTE | 2019-08-25 14:28 | PN ---
Progress Note (short form) - Note Progress Note: HPI 63 year old female with multiple medical problem including DM, Pancreatitis , COLITIS, COPD, HTN, HLD, SEIZURE , Breast cancer, sleep apnea, obesisty. Patient developed sudden onset slurring of speech , and generalized weakness. Her symptoms resolved. Her inr was 1.7 . Patient has normal ct head . Patient is feeling fine and now back to normal self. symtpoms resolved, and mri of brain unremarkable NEUROLOGICAL EXAMINATION Alert oriented x 3, neck is supple, vss no face asymmetry, eomi moving all extremity there is distal sensory diminished and reflex are generalized diminished mri of brain unremarkable,ct head unremarkable carotid ultrasound is normal Assessment/Plan 63 year old female with multiple medical problem including Speech difficulty and generalized weakness. clinically less likley to be tia. Plan: continue warfarin and statin - continue current level of care Thanking you so much Sanket Drummond MD
--- NOTE | 2019-08-25 15:21 | PN ---
Progress Note, Physician History of Present Illness: Pt seen and examined at bedside. She is awake and alert. She feels that her symptoms have resolved. - Current Medication List Current Medications: Active Medications Albuterol Sulfate (Ventolin 0.083% Nebulizer Soln -) 1 amp NEB Q4H PRN PRN Reason: SHORT OF BREATH/WHEEZING Last Admin: 08/25/19 07:42 Dose: 1 amp Anastrozole (Arimidex -) 1 mg PO DAILY [facility] Last Admin: 08/25/19 09:39 Dose: 1 mg Buspirone HCl 10 mg/ Buspirone (HCl 5 mg) 15 mg PO TID [facility] Gabapentin (Neurontin -) 100 mg PO TID [facility] Ceftriaxone Sodium 1 gm/ (Dextrose) 50 mls @ 100 mls/hr IVPB DAILY [facility] Stop: 08/26/19 09:59 Last Admin: 08/25/19 09:40 Dose: 100 mls/hr Insulin Aspart (Novolog Vial Sliding Scale -) 1 vial SQ TIDAC [facility]; Protocol Last Admin: 08/25/19 12:32 Dose: 4 units Insulin Detemir (Levemir Vial) 30 units SQ BID@0700,2200 [facility] Last Admin: 08/25/19 06:27 Dose: 30 units Levothyroxine Sodium (Synthroid -) 200 mcg PO DAILY@0700 [facility] Last Admin: 08/25/19 07:07 Dose: 200 mcg Lorazepam (Ativan -) 1 mg PO DAILY PRN PRN Reason: ANXIETY Nystatin (Nystatin Oral Suspension -) 500,000 units PO Q6HPO [facility] Last Admin: 08/25/19 12:32 Dose: 500,000 units Polyethylene Glycol (Miralax (For Daily Use) -) 17 gm PO DAILY PRN PRN Reason: CONSTIPATION Quetiapine Fumarate (Seroquel -) 800 mg PO HS [facility] Quinapril HCl (Accupril -) 10 mg PO DAILY [facility] Last Admin: 08/25/19 09:39 Dose: 10 mg Rosuvastatin Calcium (Crestor -) 10 mg PO HS [facility] Tobramycin Sulfate (Tobrex Ophthalmic Solution -) 1 drop OU Q4HWA [facility] Last Admin: 08/25/19 09:40 Dose: 1 drop Warfarin Sodium (Coumadin -) 10 mg PO DAILY@1800 [facility] Ziprasidone (Geodon -) 40 mg PO BID@0800,1730 [facility] Last Admin: 08/25/19 09:39 Dose: 40 mg - Objective Vital Signs: Vital Signs Temperature 97.8 F 08/25/19 14:00 Pulse Rate 84 08/25/19 14:00 Respiratory Rate 20 08/25/19 09:00 Blood Pressure 145/74 08/25/19 14:00 O2 Sat by Pulse Oximetry (%) 96 08/25/19 09:00 Constitutional: Yes: Calm Eyes: Yes: Conjunctiva Clear HENT: Yes: Atraumatic Neck: Yes: Supple Cardiovascular: Yes: S1, S2 Respiratory: Yes: CTA Bilaterally Gastrointestinal: Yes: Soft, Abdomen, Obese Genitourinary: Yes: WNL Musculoskeletal: Yes: WNL Extremities: Yes: WNL Edema: No Integumentary: Yes: WNL Neurological: Yes: Oriented Psychiatric: Yes: Oriented Labs: CBC, BMP 08/25/19 05:40 08/25/19 05:40 INR, PTT INR 2.33 (0.83-1.09) H 08/25/19 05:40 Problem List - Problems (1) Altered mental status Code(s): R41.82 - ALTERED MENTAL STATUS, UNSPECIFIED Qualifiers: Altered mental status type: disorientation Qualified Code(s): R41.0 - Disorientation, unspecified (2) Urinary tract infection Code(s): N39.0 - URINARY TRACT INFECTION, SITE NOT SPECIFIED Qualifiers: Urinary tract infection type: acute pyelonephritis Qualified Code(s): N10 - Acute pyelonephritis (3) COPD (chronic obstructive pulmonary disease) Code(s): J44.9 - CHRONIC OBSTRUCTIVE PULMONARY DISEASE, UNSPECIFIED Qualifiers: COPD type: unspecified COPD Qualified Code(s): J44.9 - Chronic obstructive pulmonary disease, unspecified Assessment/Plan Current Medications Generic Name Dose Route Start Last Admin Trade Name Freq PRN Reason Stop Dose Admin Albuterol Sulfate 1 amp 08/25/19 06:06 08/25/19 07:42 Ventolin 0.083% Nebulizer Soln - NEB 1 amp Q4H PRN Administration SHORT OF BREATH/WHEEZING Anastrozole 1 mg 08/25/19 10:00 08/25/19 09:39 Arimidex - PO 1 mg DAILY [facility] Administration Buspirone HCl 10 mg/ Buspirone 15 mg 08/25/19 14:00 HCl 5 mg PO TID [facility] Gabapentin 100 mg 08/25/19 14:00 Neurontin - PO TID [facility] Ceftriaxone Sodium 1 gm/ 50 mls @ 100 mls/hr 08/25/19 10:00 08/25/19 09:40 Dextrose IVPB 08/26/19 09:59 100 mls/hr DAILY [facility] Administration Insulin Aspart 1 vial 08/25/19 07:00 08/25/19 12:32 Novolog Vial Sliding Scale - SQ 4 units TIDAC [facility] Administration Protocol Insulin Detemir 30 units 08/25/19 07:00 08/25/19 06:27 Levemir Vial SQ 30 units BID@0700,2200 [facility] Administration Levothyroxine Sodium 200 mcg 08/25/19 07:00 08/25/19 07:07 Synthroid - PO 200 mcg DAILY@0700 [facility] Administration Lorazepam 1 mg 08/25/19 06:06 Ativan - PO DAILY PRN ANXIETY Nystatin 500,000 units 08/25/19 12:00 08/25/19 12:32 Nystatin Oral Suspension - PO 500,000 units Q6HPO [facility] Administration Polyethylene Glycol 17 gm 08/25/19 06:06 Miralax (For Daily Use) - PO DAILY PRN CONSTIPATION Quetiapine Fumarate 800 mg 08/25/19 22:00 Seroquel - PO HS [facility] Quinapril HCl 10 mg 08/25/19 10:00 08/25/19 09:39 Accupril - PO 10 mg DAILY [facility] Administration Rosuvastatin Calcium 10 mg 08/25/19 22:00 Crestor - PO HS [facility] Tobramycin Sulfate 1 drop 08/25/19 10:00 08/25/19 09:40 Tobrex Ophthalmic Solution - OU 1 drop Q4HWA [facility] Administration Warfarin Sodium 10 mg 08/25/19 18:00 Coumadin - PO DAILY@1800 [facility] Ziprasidone 40 mg 08/25/19 08:00 08/25/19 09:39 Geodon - PO 40 mg BID@0800,1730 [facility] Administration Impression 1. CKD with acute component 2. r/o cva vs tia - neuro on board 3. uti 4. obesity 5. schizophrenia 6. dm 7. htn Plan - cont fluids - monitor renal function - follow ultrasound and repeat ua - hold pranav of renal function worsens - monitor bp
[2019-08-25] MEDS ORDERED: WARFARIN NA 10 MG TABLET (FP) PO SCH (18:00)
[2019-08-25] MEDS ORDERED: QUEtiapine FUMARATE 200 MG TABLET PO SCH (22:00)
[2019-08-25] MEDS ORDERED: ROSUVASTATIN CA 10 MG TABLET (FP) PO SCH (22:00)
[2019-08-26] MEDS: NYSTATIN 500,000 UNITS/5 ML SUSPENSION PO SCH ×3 (00:49→11:13)
[2019-08-26] MEDS: INSULIN SLIDING SCALE (NOVOLOG) 1 VIAL SQ SCH ×2 (06:09→11:35)
[2019-08-26] MEDS: GABAPENTIN 100 MG CAPSULE (FP) PO SCH ×2 (06:09→13:35)
[2019-08-26] MEDS: BUSPIRONE HCL 10 MG, BUSPIRONE HCL 5 MG PO SCH ×2 (06:09→13:34)
[2019-08-26] MEDS: LEVOTHYROXINE NA 200 MCG TABLET PO SCH (06:09)
[2019-08-26] MEDS: TOBRAMYCIN 0.3% OPHTH SOLN 5 ML BOTTLE OU SCH ×3 (06:11→13:35)
[2019-08-26] MEDS: INSULIN (LEVEMIR) 100 UNITS/ML UNITS SQ SCH (06:16)
[2019-08-26] MEDS ORDERED: cefTRIAXone SODIUM 1 GM VIAL ONE (08:21)
[2019-08-26] MEDS ORDERED: DEXTROSE 5%-WATER - 50 ML IVPB ONE (08:21)
--- NOTE | 2019-08-26 10:32 | PN ---
Progress Note (short form) - Note Progress Note: 63 year old female with multiple medical problem including DM, Pancreatitis, COLITIS, COPD, HTN, HLD, SEIZURE , Breast cancer, sleep apnea, obesisty. Patient developed sudden onset slurring of speech , and generalized weakness. Her symptoms resolved. Her inr was 1.7 . Patient has normal ct head . Patient is feeling fine and now back to normal self. symtpoms resolved, and mri of brain unremarkable NEUROLOGICAL EXAMINATION Alert oriented x 3, neck is supple, vss no face asymmetry, eomi moving all extremity there is distal sensory diminished and reflex are generalized diminished mri of brain unremarkable,ct head unremarkable carotid ultrasound is normal Assessment/Plan 63 year old female with multiple medical problem including Speech difficulty and generalized weakness. ? TIA, she is back to normal self Plan: continue warfarin and statin - continue current level of care Thanking you so much Sanket Drummond MD
[2019-08-26] MEDS: ZIPRASIDONE 40 MG CAPSULE (FP) PO SCH (11:07)
[2019-08-26] MEDS: QUINAPRIL HCL 10 MG TABLET (FP) PO SCH (11:08)
[2019-08-26] MEDS: ANASTROZOLE 1 MG TABLET PO SCH (11:09)
--- NOTE | 2019-08-26 11:49 | DS ---
Physical Examination Vital Signs: Vital Signs Temperature 97.6 F 08/26/19 05:46 Pulse Rate 77 08/26/19 05:46 Respiratory Rate 20 08/26/19 05:46 Blood Pressure 145/93 08/26/19 05:46 O2 Sat by Pulse Oximetry (%) 100 08/25/19 20:36 Findings/Remarks: pt seen/ examined feels well much better chart reviewed Constitutional: Yes: No Distress, Calm Eyes: Yes: Conjunctiva Clear Neck: Yes: Supple. No: Lymphadenopathy Cardiovascular: Yes: Regular Rate and Rhythm Respiratory: Yes: CTA Bilaterally Gastrointestinal: Yes: Soft, Abdomen, Obese Edema: No Neurological: Yes: Alert Psychiatric: Yes: Alert Labs: CBC, BMP 08/25/19 05:40 08/25/19 05:40 Discharge Summary Problems reviewed: Yes Reason For Visit: ALTERED MENTAL STATUS Current Active Problems Altered mental status (Acute) History of pulmonary embolus (PE) (Acute) Urinary tract infection (Acute) Hospital Course: Admitted for Metabolic Encephalopathy/AMS/ uncontrolled Diabetes treated with abx Insulin adjusted Hospital course complicated by possible ?TIA Now stable for d/c str Compliance stressed Uncontrolled DM UTI AMS Schizophrenia H/o pulmonary embolism h/o breast CA-- s/p chemo and RT HTN obesity -- CT head negative for acute infarct, bleed -- MRI brain-- negative for acute or subacute infarct -- iv antibiotics -- cultures negative --dc iv fluids Abd/pelvis CT-- ?pyelonephritis overall stable d/c to senior care today meds reconcilled d/w nurse case manager Condition: Guarded - Instructions Referrals: Tej Chamberlain MD [Primary Care Provider] - Disposition: RESIDENTIAL FACILITY - Home Medications Comprehensive Discharge Medication List: Ambulatory Orders Buspirone HCl [Buspar] 15 mg PO TID 03/20/14 Lorazepam [Ativan] 2 mg PO HS PRN 03/20/14 Rosuvastatin Calcium [Crestor] 10 mg PO HS 03/20/14 FA/Mv,Ca,Iron,Min/Lycopene/Lut [Centrum Tablet] 1 each PO DAILY 07/03/14 Anastrozole [Arimidex -] 1 mg PO DAILY #0 12/06/16 Gabapentin [Neurontin -] 100 mg PO Q8H #0 12/06/16 Insulin (Novolog) [Novolog Flexpen -] 0 units SQ ASDIR #0 12/06/16 Quetiapine Fumarate [Seroquel -] 800 mg PO HS #0 12/06/16 Quinapril HCl [Accupril -] 10 mg PO DAILY #0 12/06/16 Ziprasidone HCl [Geodon] 40 mg PO BID #0 12/06/16 Albuterol 0.083% Nebulizer Blaire [Ventolin 0.083% Nebulizer Soln -] 1 amp NEB Q4H PRN amp 09/28/17 Ketoconozole 2% Cream [Nizoral 2% Cream -] 1 applic TP DAILY #1 tube 09/28/17 Polyethylene Glycol 3350 [Miralax 119 gm Btl -] 17 gm PO DAILY PRN #1 bag Albuterol 0.083% Nebulizer Blaire [Ventolin 0.083% Nebulizer Soln -] 1 amp NEB Q4H PRN amp 08/26/19 Insulin (Levemir) [Levemir Vial] 30 units SQ BID@0700,2200 units 08/26/19 Insulin Sliding Scale [Novolog Vial Sliding Scale -] 1 vial SQ TIDAC units 10/04 Levothyroxine [Synthroid -] 200 mcg PO DAILY@0700 tablet 08/26/19 Nystatin Oral Suspension - [Nystatin Oral Susp 634567 Units/5 ML -] 500,000 units PO Q6HPO cup 08/26/19 Tobramycin 0.3% Ophth Soln [Tobrex Ophthalmic Solution -] 1 drop OU Q4HWA drops 08/26/19 Warfarin Na [Coumadin -] 10 mg PO DAILY@1800 tablet 08/26/19
[2019-08-26 12:24] LABS: BLOOD UREA NITROGEN 18.6 mg/dL (7-18); CALCIUM 9.6 mg/dL (8.5-10.1); CREATININE 1.3 mg/dL (0.55-1.3); POTASSIUM 4.7 mmol/L (3.5-5.1)
--- NOTE | 2019-08-26 14:37 | PN ---
Progress Note, Physician History of Present Illness: Pt seen and examined at bedside. SHe is awake and appears comfortable. She denies shortness of breath. - Current Medication List Current Medications: Active Medications Albuterol Sulfate (Ventolin 0.083% Nebulizer Soln -) 1 amp NEB Q4H PRN PRN Reason: SHORT OF BREATH/WHEEZING Last Admin: 08/25/19 20:05 Dose: 1 amp Anastrozole (Arimidex -) 1 mg PO DAILY [facility] Last Admin: 08/26/19 11:09 Dose: 1 mg Buspirone HCl 10 mg/ Buspirone (HCl 5 mg) 15 mg PO TID [facility] Last Admin: 08/26/19 13:34 Dose: 15 mg Gabapentin (Neurontin -) 100 mg PO TID [facility] Last Admin: 08/26/19 13:35 Dose: 100 mg Insulin Aspart (Novolog Vial Sliding Scale -) 1 vial SQ TIDAC [facility]; Protocol Last Admin: 08/26/19 11:35 Dose: Not Given Insulin Detemir (Levemir Vial) 30 units SQ BID@0700,2200 [facility] Last Admin: 08/26/19 06:16 Dose: 30 units Levothyroxine Sodium (Synthroid -) 200 mcg PO DAILY@0700 [facility] Last Admin: 08/26/19 06:09 Dose: 200 mcg Lorazepam (Ativan -) 1 mg PO DAILY PRN PRN Reason: ANXIETY Nystatin (Nystatin Oral Suspension -) 500,000 units PO Q6HPO [facility] Last Admin: 08/26/19 11:13 Dose: 500,000 units Polyethylene Glycol (Miralax (For Daily Use) -) 17 gm PO DAILY PRN PRN Reason: CONSTIPATION Quetiapine Fumarate (Seroquel -) 800 mg PO [facility] Last Admin: 08/25/19 22:14 Dose: 800 mg Quinapril HCl (Accupril -) 10 mg PO DAILY [facility] Last Admin: 08/26/19 11:08 Dose: 10 mg Rosuvastatin Calcium (Crestor -) 10 mg PO [facility] Last Admin: 08/25/19 22:14 Dose: 10 mg Tobramycin Sulfate (Tobrex Ophthalmic Solution -) 1 drop OU Q4HWA [facility] Last Admin: 08/26/19 13:35 Dose: 1 drop Warfarin Sodium (Coumadin -) 10 mg PO DAILY@1800 [facility] Last Admin: 08/25/19 17:02 Dose: 10 mg Ziprasidone (Geodon -) 40 mg PO BID@0800,1730 [facility] Last Admin: 08/26/19 11:07 Dose: 40 mg - Objective Vital Signs: Vital Signs Temperature 97.6 F 08/26/19 05:46 Pulse Rate 77 08/26/19 05:46 Respiratory Rate 20 08/26/19 05:46 Blood Pressure 145/93 08/26/19 05:46 O2 Sat by Pulse Oximetry (%) 100 08/25/19 20:36 Constitutional: Yes: Calm Eyes: Yes: Conjunctiva Clear HENT: Yes: Atraumatic Neck: Yes: Supple Cardiovascular: Yes: S1, S2 Respiratory: Yes: CTA Bilaterally Gastrointestinal: Yes: Soft, Abdomen, Obese Genitourinary: Yes: WNL Musculoskeletal: Yes: WNL Edema: No Neurological: Yes: Oriented Psychiatric: Yes: Oriented Labs: CBC, BMP 08/25/19 05:40 08/26/19 11:37 INR, PTT INR 2.33 (0.83-1.09) H 08/25/19 05:40 Problem List - Problems (1) Altered mental status Code(s): R41.82 - ALTERED MENTAL STATUS, UNSPECIFIED Qualifiers: Altered mental status type: disorientation Qualified Code(s): R41.0 - Disorientation, unspecified (2) Urinary tract infection Code(s): N39.0 - URINARY TRACT INFECTION, SITE NOT SPECIFIED Qualifiers: Urinary tract infection type: acute pyelonephritis Qualified Code(s): N10 - Acute pyelonephritis (3) COPD (chronic obstructive pulmonary disease) Code(s): J44.9 - CHRONIC OBSTRUCTIVE PULMONARY DISEASE, UNSPECIFIED Qualifiers: COPD type: unspecified COPD Qualified Code(s): J44.9 - Chronic obstructive pulmonary disease, unspecified Assessment/Plan Current Medications Generic Name Dose Route Start Last Admin Trade Name Freq PRN Reason Stop Dose Admin Albuterol Sulfate 1 amp 08/25/19 06:06 08/25/19 20:05 Ventolin 0.083% Nebulizer Soln - NEB 1 amp Q4H PRN Administration SHORT OF BREATH/WHEEZING Anastrozole 1 mg 08/25/19 10:00 08/26/19 11:09 Arimidex - PO 1 mg DAILY [facility] Administration Buspirone HCl 10 mg/ Buspirone 15 mg 08/25/19 14:00 08/26/19 13:34 HCl 5 mg PO 15 mg TID [facility] Administration Gabapentin 100 mg 08/25/19 14:00 08/26/19 13:35 Neurontin - PO 100 mg TID [facility] Administration Insulin Aspart 1 vial 08/25/19 07:00 08/26/19 11:35 Novolog Vial Sliding Scale - SQ Not Given TIDAC [facility] Protocol Insulin Detemir 30 units 08/25/19 07:00 08/26/19 06:16 Levemir Vial SQ 30 units BID@0700,2200 [facility] Administration Levothyroxine Sodium 200 mcg 08/25/19 07:00 08/26/19 06:09 Synthroid - PO 200 mcg DAILY@0700 [facility] Administration Lorazepam 1 mg 08/25/19 06:06 Ativan - PO DAILY PRN ANXIETY Nystatin 500,000 units 08/25/19 12:00 08/26/19 11:13 Nystatin Oral Suspension - PO 500,000 units Q6HPO [facility] Administration Polyethylene Glycol 17 gm 08/25/19 06:06 Miralax (For Daily Use) - PO DAILY PRN CONSTIPATION Quetiapine Fumarate 800 mg 08/25/19 22:00 08/25/19 22:14 Seroquel - PO 800 mg HS [facility] Administration Quinapril HCl 10 mg 08/25/19 10:00 08/26/19 11:08 Accupril - PO 10 mg DAILY [facility] Administration Rosuvastatin Calcium 10 mg 08/25/19 22:00 08/25/19 22:14 Crestor - PO 10 mg HS [facility] Administration Tobramycin Sulfate 1 drop 08/25/19 10:00 08/26/19 13:35 Tobrex Ophthalmic Solution - OU 1 drop Q4HWA [facility] Administration Warfarin Sodium 10 mg 08/25/19 18:00 08/25/19 17:02 Coumadin - PO 10 mg DAILY@1800 [facility] Administration Ziprasidone 40 mg 08/25/19 08:00 08/26/19 11:07 Geodon - PO 40 mg BID@0800,1730 [facility] Administration Impression 1. CKD with acute component 2. r/o cva vs tia - neuro on board 3. uti 4. obesity 5. schizophrenia 6. dm 7. htn Plan - renal function is improving - can see pt in office - monitor renal function - can get ultrasound as outpt - recommend weight loss - can cont pranav
[2019-08-26 18:15] VITALS: BP 138/77; PULSE 78; TEMP 98
== END 2019-08-26 15:13 | DRG 689 ==
LOC: SUPCPDRO 19:21 → JER 19:21 → J5S 08-20 00:39 → J4W 08-24 13:42
PROVIDERS: ADMIT Internal Medicine; ATTEND Internal Medicine
DX: N39.0 Urinary tract infection, site not specified (principal); G93.41 Metabolic encephalopathy; Z68.41 Body mass index [BMI] 40.0-44.9, adult; N17.9 Acute kidney failure, unspecified; B37.0 Candidal stomatitis; G45.9 Transient cerebral ischemic attack, unspecified; J44.9 Chronic obstructive pulmonary disease, unspecified; E11.65 Type 2 diabetes mellitus with hyperglycemia; E66.9 Obesity, unspecified; F20.9 Schizophrenia, unspecified; I12.9 Hypertensive chronic kidney disease with stage 1 through stage 4 chronic kidney disease, or unspecified chronic kidney disease; N18.9 Chronic kidney disease, unspecified; Z85.3 Personal history of malignant neoplasm of breast; R41.82 Altered mental status, unspecified; E78.5 Hyperlipidemia, unspecified; E03.9 Hypothyroidism, unspecified; G47.33 Obstructive sleep apnea (adult) (pediatric); H10.9 Unspecified conjunctivitis
CPT/HCPCS: 36415; 70450-TC; 70551-TC; 71045-TC-FY; 74176-TC; 80048; 80053; 80061; 80307; 81003; 82272; 82550; 82553; 82962; 83036; 83690; 83721; 84443; 84484; 85025; 85027; 85610; 87086; 87177; 87209; 93005; 93010; 93306-TC; 93880-TC; 93971; 94640; 97116-GP; 97162-GP; 99283-25; J1644; J7030

== ENCOUNTER 2020-05-04 11:10 | Inpatient (IN) | payer OTHER, MEDICARE ==
[2020-05-04] MEDS ORDERED: SODIUM CHLORIDE 1,000 ML IV STA (11:15)
--- NOTE | 2020-05-04 11:15 | PDOC ---
Rapid Medical Evaluation Chief Complaint: Vomiting/Diarrhea Time Seen by Provider: 05/04/20 11:13 Medical Evaluation: Allergies Allergy/AdvReac Type Severity Reaction Status Date / Time acetaminophen [From Tylenol] Allergy "VOMITS" Verified 03/29/20 13:18 almond oil Allergy "ITCHY" Verified 03/29/20 13:18 citalopram hydrobromide Allergy "STROKE Verified 03/29/20 13:18 [From Celexa] LIKE SYMPTOMS" divalproex sodium Allergy "PANCREATIT Verified 03/29/20 13:18 [From Depakote] IS" Iodinated Contrast Media Allergy Verified 03/29/20 13:18 [Iodinated Contrast Media - IV Dye] lamotrigine [From Lamictal] Allergy "FACE Verified 03/29/20 13:18 SWELLS" lithium [Cactus] Allergy "SEIZURES,SWOLLEN Verified 03/29/20 13:18 ARMS/LEGS" meperidine HCl [From Demerol] Allergy "TURNS RED Verified 03/29/20 13:18 WHEN MIXED WITH NOVACAINE" shellfish derived Allergy "TURNED Verified 03/29/20 13:18 RED /ITCHY" sulfamethoxazole Allergy "COLLAPSED, Verified 03/29/20 13:18 [From Bactrim] HEART ISSUE" topiramate [From Topamax] Allergy TO Verified 03/29/20 13:18 POISONOUS LEVELS" trimethoprim [From Bactrim] Allergy "COLLAPSED,HEART Verified 03/29/20 13:18 ISSUE" 05/04/20 11:14 I have performed a brief in-person evaluation of this patient. CC: lower abdominal pain with bloody diarrhea x1 day. States she is Covid-19 positive. PE: conjunctival pallor. Obese abdomen. Orders: labs, urine, T&S Patient will proceed to ED for further evaluation. Discharge Disposition - Diagnosis Rectal bleeding - Discharge Dispostion Condition at time of disposition: Stable - Referrals - Patient Instructions - Post Discharge Activity
--- NOTE | 2020-05-04 11:30 | PDOC ---
History of Present Illness - General Chief Complaint: Vomiting/Diarrhea Stated Complaint: rectal bleeding/vomiting Time Seen by Provider: 05/04/20 11:13 History Source: Patient Exam Limitations: Clinical Condition - History of Present Illness Initial Comments: Patient Phone number: cell:[phone] Meenu Adams is a 64 yo F w a hx of IDDM, pancreatitis, copd on 3L O2, htn, hld, schizoaffective disorder, seizures,obesity, sleep apnea (uses cpap at night with 3L NC O2), breast ca s/p lumpectomy/chemo/radiation who presents to the ER with lower abdominal pain with bloody diarrhea x1 day. States she was Covid-19 positive 1 month ago. HPI: Patient states last night she ate a Manicotti with cheese and immediately afterwards became nauseous, started vomiting, and then 1 hour later started experiencing diarrhea. The patient went to sleep and then this morning woke up and her diarrhea became bloody. She states that here in the ER she has diffuse abdominal pain in the upper, middle, lower, right and left regions. She feels extremely nauseous and feels like she is going to pass out, but denies actually passing out. She also says she feels very warm and believes she has a fever despite her oral temperature in triage being afebrile. PCP: Tej Chamberlain PSH: Breast Biopsy (left biopsy benign and right lumpectomy for cancer), Cholecystectomy (laparoscopic), Joint Replacement (left hip) Social Hx: Former smoker. Denies alcohol or cigarette usage. Allergies: acetaminophen, almond oil, citalopram hydrobromide Past History - Medical History Allergies/Adverse Reactions: Allergies Allergy/AdvReac Type Severity Reaction Status Date / Time acetaminophen [From Tylenol] Allergy "VOMITS" Verified 03/29/20 13:18 almond oil Allergy "ITCHY" Verified 03/29/20 13:18 citalopram hydrobromide Allergy "STROKE Verified 03/29/20 13:18 [From Celexa] LIKE SYMPTOMS" divalproex sodium Allergy "PANCREATIT Verified 03/29/20 13:18 [From Depakote] IS" Iodinated Contrast Media Allergy Verified 03/29/20 13:18 [Iodinated Contrast Media - IV Dye] lamotrigine [From Lamictal] Allergy "FACE Verified 03/29/20 13:18 SWELLS" lithium [[place]] Allergy "SEIZURES,SWOLLEN Verified 03/29/20 13:18 ARMS/LEGS" meperidine HCl [From Demerol] Allergy "TURNS RED Verified 03/29/20 13:18 WHEN MIXED WITH NOVACAINE" shellfish derived Allergy "TURNED Verified 03/29/20 13:18 RED /ITCHY" sulfamethoxazole Allergy "COLLAPSED, Verified 03/29/20 13:18 [From Bactrim] HEART ISSUE" topiramate [From Topamax] Allergy TO Verified 03/29/20 13:18 POISONOUS LEVELS" trimethoprim [From Bactrim] Allergy "COLLAPSED,HEART Verified 03/29/20 13:18 ISSUE" Home Medications: Ambulatory Orders Buspirone HCl [Buspar] 15 mg PO TID 03/20/14 Lorazepam [Ativan] 2 mg PO HS PRN 03/20/14 Rosuvastatin Calcium [Crestor] 10 mg PO HS 03/20/14 FA/Mv,Ca,Iron,Min/Lycopene/Lut [Centrum Tablet] 1 each PO DAILY 07/03/14 Anastrozole [Arimidex -] 1 mg PO DAILY #0 12/06/16 Gabapentin [Neurontin -] 100 mg PO Q8H #0 12/06/16 Insulin (Novolog) [Novolog Flexpen -] 0 units SQ ASDIR #0 12/06/16 Quetiapine Fumarate [Seroquel -] 800 mg PO HS #0 12/06/16 Quinapril HCl [Accupril -] 10 mg PO DAILY #0 12/06/16 Ziprasidone HCl [Geodon] 40 mg PO BID #0 12/06/16 Albuterol 0.083% Nebulizer Blaire [Ventolin 0.083% Nebulizer Soln -] 1 amp NEB Q4H PRN amp 09/28/17 Ketoconozole 2% Cream [Nizoral 2% Cream -] 1 applic TP DAILY #1 tube 09/28/17 Polyethylene Glycol 3350 [Miralax 119 gm Btl -] 17 gm PO DAILY PRN #1 bag 09/28/17 Albuterol 0.083% Nebulizer Blaire [Ventolin 0.083% Nebulizer Soln -] 1 amp NEB Q4H PRN amp 08/26/19 Insulin (Levemir) [Levemir Vial] 30 units SQ BID@0700,2200 units 08/26/19 Insulin Sliding Scale [Novolog Vial Sliding Scale -] 1 vial SQ TIDAC units 08/26/19 Levothyroxine [Synthroid -] 200 mcg PO DAILY@0700 tablet 08/26/19 Nystatin Oral Suspension - [Nystatin Oral Susp 627295 Units/5 ML -] 500,000 units PO Q6HPO cup 08/26/19 Tobramycin 0.3% Ophth Soln [Tobrex Ophthalmic Solution -] 1 drop OU Q4HWA drops 08/26/19 Warfarin Na [Coumadin -] 10 mg PO DAILY@1800 tablet 08/26/19 Buspirone HCl 15 mg PO TID 03/04/20 Seroquel - 800 mg PO HS 03/04/20 Synthroid 200 mcg PO DAILY 03/04/20 Lorazepam [Ativan] 1 mg PO HS PRN 03/05/20 Quinapril HCl 10 mg PO DAILY 03/05/20 Rosuvastatin Calcium [Crestor] 10 mg PO DAILY 03/05/20 Tramadol HCl [Ultram] 50 mg PO PRN PRN 03/05/20 Ziprasidone [Geodon -] 40 mg PO BID 03/05/20 Ascorbic Acid [Vitamin C] 2,000 mg PO BID #60 tablet 03/08/20 Zinc Sulfate [Orazinc -] 220 mg PO BID #30 capsule 03/08/20 Anemia: No Asthma: No Cancer: Yes (Left Breast s/p lumpectomy) Cardiac Disorders: No CVA: No COPD: Yes CHF: No Dementia: No Diabetes: Yes GI Disorders: No Disorders: No HTN: Yes Hypercholesterolemia: Yes Liver Disease: No Psychiatric Problems: (SCHIZOEFFECTIVE) Seizures: No Thyroid Disease: Yes (hypothyroid) - Surgical History Abdominal Surgery: No Appendectomy: No Cardiac Surgery: No Cholecystectomy: No Lung Surgery: No Neurologic Surgery: No Orthopedic Surgery: No - Immunization History Immunization Up to Date: No - Psycho-Social/Smoking History Smoking Status: Yes Smoking History: Never smoked Have you smoked in the past 12 months: No Number of Cigarettes Smoked Daily: 20 If you are a former smoker, when did you quit?: Three years ago Information on smoking cessation initiated: No 'Breaking Loose' booklet given: 12/03/16 - Substance Abuse Hx (Audit-C & DAST Scrn) How often the patient has a drink containing alcohol: Never Score: In Men: 4 or > Positive; In Women: 3 or > Positive: 0 Screen Result (Pos requires Nsg. Audit-10AR): Negative In the last yr the pt used illegal drug/Rx for NonMed reason: No Score: Yes response is considered Positive: 0 Screen Result (Positive result requires Nsg. DAST-10): Negative Review of Systems - Review of Systems Able to Perform ROS?: Yes Comments:: CONSTITUTIONAL: Present: fever, chills, fatigue EYES: Absent: visual changes ENT: Absent: ear pain, no sore throat CARDIOVASCULAR: Absent: chest pain, no palpitations RESPIRATORY: Absent: cough, no SOB GI: Present: Abdominal pain, nausea, vomiting, diarrhea Absent: no constipation GENITOURINARY: Absent: dysuria, no frequency, no hematuria MUSKULOSKELETAL: Absent: back pain, no arthralgia, no myalgia SKIN: Absent: rash NEURO: Absent: headache *Physical Exam - Vital Signs Last Vital Signs Temp Pulse Resp BP Pulse Ox 97.6 F 90 16 140/75 99 05/04/20 11:12 05/04/20 11:12 05/04/20 11:12 05/04/20 11:12 05/04/20 11:12 - Physical Exam GENERAL: Morbidly obese. Appears uncomfortable. Mild apparent distress. HEENT: Normocephalic, atraumatic. PERRL, EOM intact. CARDIOVASCULAR: Normal S1, S2. Regular rate and rhythm. PULMONARY: No evidence of respiratory distress. Lungs clear to auscultation bilaterally. No wheezing, rales or rhonchi. ABDOMEN: +epigastric, LUQ, LLQ and suprapubic TTP. Overall abdomen is soft and not rigid. There is no guarding or rebound. Abdomen is not peritoneal. EXTREMITIES: Normal ROM in all four extremities. No gross deformities. SKIN: Warm, dry. No rash NEUROLOGICAL: No focal neurological deficits. ED Treatment Course - LABORATORY CBC & Chemistry Diagram: 05/04/20 11:50 05/04/20 11:50 Medical Decision Making - Medical Decision Making Patient Phone number: cell:[phone] Meenu Adams is a 64 yo F w a hx of IDDM, pancreatitis, copd on 3L O2, htn, hld, schizoaffective disorder, seizures,obesity, sleep apnea (uses cpap at night with 3L [place] O2), breast ca s/p lumpectomy/chemo/radiation who presents to the ER with lower abdominal pain with bloody diarrhea x1 day. States she was Covid-19 positive 1 month ago. HPI: Patient states last night she ate a Manicotti with cheese and immediately afterwards became nauseous, started vomiting, and then 1 hour later started experiencing diarrhea. The patient went to sleep and then this morning woke up and her diarrhea became bloody. She states that here in the ER she has diffuse abdominal pain in the upper, middle, lower, right and left regions. She feels extremely nauseous and feels like she is going to pass out, but denies actually passing out. She also says she feels very warm and believes she has a fever despite her oral temperature in triage being afebrile. Vital Signs Temp Pulse Resp BP Pulse Ox 98.4 F 90 16 140/75 99 05/04/20 11:46 05/04/20 11:12 05/04/20 11:12 05/04/20 11:12 05/04/20 11:12 - Rectal temp 99.2 DDx IBNLT: gastroenteritis, colitis, pancreatitis, diverticulitis, gastritis, electrolyte/metabolic disturbance, anemia, cholecystitis, UTI/Pylo Plan: Labs, Urine, EKG, CTAP, supportive care, re-assess EKG: NS rate of 83, wide qrs of 124 with borderline RBBB, LAFB, LAD, LVH, no significant ST elevations or depressions, no Q waves, normal T waves, QTc 481 Labs: Leukocytosis w left shift, supratherapeutic INR of 4, elevated BUN 22, elevated lactic acid 2.4. CTAP: Unremarkable Re-assessment: Patient persistently vomiting despite zofran and reglan and cannot tolerate anything PO. - This could be diabetic gastroparesis - Suspect gastroenteritis Disposition: Admission to med/surg for persistent nausea, vomiting, and inability to tolerate PO 05/04/20 15:[address] Chamberlain for admission Discharge - Discharge Information Problems reviewed: Yes Clinical Impression/Diagnosis: Rectal bleeding, Supratherapeutic INR, Abdominal pain Nausea and vomiting Qualifiers: Vomiting type: unspecified Vomiting Intractability: intractable Qualified Code(s): R11.2 - Nausea with vomiting, unspecified Condition: Stable - Admission Yes - Follow up/Referral - Patient Discharge Instructions - Post Discharge Activity
--- NOTE | 2020-05-04 11:43 | PDOC ---
Attending Attestation - Resident Resident Name: Ad Sorenson - ED Attending Attestation I have performed the following: I have examined & evaluated the patient, The case was reviewed & discussed with the resident, I agree w/resident's findings & plan, Exceptions are as noted - HPI HPI: 64 yo F history DM, pancreatitis, COPD on home O2, HTN, HL, schizoaffective, seizures, obesity, SHELL, breast CA presents with lower abd pain, bloody diarrhea, vomiting since yesterday. she states she ate [place] food yesterday- manicotti with cheese, garlic bread- developed vomiting and diarrhea approximately 1.5 hrs later. Associated with diffuse abd pain, worse in lower abdomen and LUQ. She states she still has nausea with dry heaves, nothing coming up. Diagnosed with COVID-19 1 month ago. - Physicial Exam PE: GENERAL: Awake, alert, and fully oriented, dry heaving on arrival in ED, clear sputum in emesis bag. Morbidly obese. Mild pallor. HEAD: No signs of trauma EYES: PERRLA, EOMI, sclera anicteric, conjunctiva clear ENT: Auricles normal inspection, hearing grossly normal, nares patent, oropharynx clear without exudates. Moist mucosa NECK: Normal ROM, supple, no lymphadenopathy, JVD, or masses LUNGS: Breath sounds equal, clear to auscultation bilaterally. No wheezes, and no crackles HEART: Regular rate and rhythm, normal S1 and S2, no murmurs, rubs or gallops ABDOMEN: Soft, diffusely tender, normoactive bowel sounds. No guarding, no rebound. No masses EXTREMITIES: Normal range of motion, no edema. No clubbing or cyanosis. No cords, erythema, or tenderness NEUROLOGICAL: Cranial nerves II through XII grossly intact. Normal speech. Motor and sensation intact SKIN: Warm, dry, normal turgor, no rashes or lesions noted. - Medical Decision Making Pt presents with N/V/D, persistently unable to tolerate PO in ED. Also with rectal bleeding associated with diarrhea, found to have supratherapeutic INR. No acute process on CT. Admitted for PO intolerance. Discharge - Discharge Information Problems reviewed: Yes Clinical Impression/Diagnosis: Rectal bleeding, Supratherapeutic INR Nausea and vomiting Qualifiers: Vomiting type: unspecified Vomiting Intractability: intractable Qualified Code(s): R11.2 - Nausea with vomiting, unspecified Abdominal pain Qualifiers: Abdominal location: generalized Qualified Code(s): R10.84 - Generalized abdominal pain Condition: Stable - Follow up/Referral - Patient Discharge Instructions - Post Discharge Activity
[2020-05-04] MEDS ORDERED: FAMOTIDINE 20 MG/50 ML IVPB 20 MG/50 ML MG IVPB ONE ×2 (11:47→12:31)
[2020-05-04] MEDS ORDERED: LACTATED RINGERS SOLUTION 1,000 ML IV STA (11:47)
[2020-05-04] MEDS ORDERED: ONDANSETRON 4 MG/2 ML VIAL IVPUSH ONE (11:48)
[2020-05-04 12:18] LABS: BASO % 0.8 % (0-2.0); EOS % 0.8 % (0-4.5); HEMATOCRIT 38.3 % (32.4-45.2); HEMOGLOBIN 12.4 GM/dL (10.7-15.3); LYMPH % 10.9 % (8-40); MCH 27.9 pg (25.7-33.7); MCHC 32.4 g/dl (32.0-36.0); MEAN CELL VOLUME 86.1 fl (80-96); MEAN PLT VOLUME 8.8 fl (7.5-11.1); MONO % 7.4 % (3.8-10.2); NEUT % 80.1 % (42.8-82.8); PLATELET COUNT 251 K/MM3 (134-434); RBC 4.45 M/mm3 (3.60-5.2); RDW 16.6 % (11.6-15.6); WHITE BLOOD COUNT 12.6 K/mm3 (4.0-10.0)
[2020-05-04 12:27] LABS: ACTIVATED PTT 52.3 SECONDS (25.2-36.5)
[2020-05-04 12:31] LABS: INR 4.09 (0.83-1.09)
[2020-05-04 12:43] LABS: BILIRUBIN,DIRECT 0.1 mg/dL (0.0-0.2); MAGNESIUM 1.8 mg/dL (1.8-2.4); PHOSPHOROUS 2.8 mg/dL (2.5-4.9)
[2020-05-04 12:49] LABS: EPI CELLS 7 /uL (0-25.1); HYALINE CASTS 1 /uL (0-3.1); URINE APPEARANCE CLEAR; URINE BACTERIA 17 /uL (0-1359); URINE BILIRUBIN NEGATIVE (NEGATIVE); URINE COLOR YELLOW; URINE GLUCOSE (UA) NEGATIVE (NEGATIVE); URINE KETONE NEGATIVE (NEGATIVE); URINE LEUK ESTERASE NEGATIVE (NEGATIVE); URINE NITRITE NEGATIVE (NEGATIVE); URINE PROTEIN 2+ (NEGATIVE); URINE RBC 3 /uL (0-23.9); URINE WBC 4 /uL (0-25.8)
[2020-05-04 13:17] LABS: ALBUMIN 3.6 g/dl (3.4-5.0); ALK PHOS 118 U/L (45-117); ANION GAP 11 MMOL/L (8-16); BILIRUBIN,TOTAL 0.4 mg/dL (0.2-1); BLOOD UREA NITROGEN 22.8 mg/dL (7-18); CHLORIDE 105 mmol/L (98-107); CO2 22 mmol/L (21-32); CREATININE 1.3 mg/dL (0.55-1.3); GLUCOSE,RANDOM 243 mg/dL (74-106); LIPASE 364 U/L (73-393); SGOT/AST 18 U/L (15-37); SGPT/ALT 24 U/L (13-61); SODIUM 137 mmol/L (136-145); TOT PROT 7.3 g/dl (6.4-8.2)
[2020-05-04] MEDS ORDERED: LACTATED RINGERS SOLUTION 1,000 ML/1,000 ML INFUS.BAG IV ONE (14:52)
[2020-05-04] MEDS ORDERED: METOCLOPRAMIDE HCL INJECTION 10 MG/2 ML VIAL IVPUSH ONE (14:54)
[2020-05-04] MEDS ORDERED: METOCLOPRAMIDE HCL INJECTION 10 MG/2 ML VIAL ONE (15:03)
[2020-05-04] MEDS ORDERED: ALBUTEROL SO4 0.083% IH SOL 2.5 MG/3 ML VIAL.NEB. NEB PRN (15:47)
--- NOTE | 2020-05-04 15:58 | HP ---
Admitting History and Physical - Primary Care Physician PCP: Tej Chamberlain - Admission History of Present Illness: Case d/w Er Resident Chart reviewed In summary Meenu Adams is a 64 yo F w a hx of IDDM, pancreatitis, copd on 3L O2, htn, hld, schizoaffective disorder, seizures,obesity, sleep apnea (uses cpap at night with 3L [place] O2), breast ca s/p lumpectomy/chemo/radiation who presents to the ER with lower abdominal pain with bloody diarrhea x1 day. States she was Covid-19 positive 1 month ago. HPI: Patient states last night she ate a Manicotti with cheese and immediately afterwards became nauseous, started vomiting, and then 1 hour later started experiencing diarrhea. The patient went to sleep and then this morning woke up and her diarrhea became bloody. She states that here in the ER she has diffuse abdominal pain in the upper, middle, lower, right and left regions. She feels extremely nauseous and feels like she is going to pass out, but denies actually passing out. She also says she feels very warm and believes she has a fever despite her oral temperature in triage being afebrile. ct abd -ve Being admitted for Severen/v- Gastroparesis PSH: Breast Biopsy (left biopsy benign and right lumpectomy for cancer), Cholecystectomy (laparoscopic), Joint Replacement (left hip) Social Hx: Former smoker. Denies alcohol or cigarette usage. 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 Cardiovascular: Yes: HTN, Hyperlipdemia Pulmonary: Yes: COPD, Sleep Apnea, O2 Dependent Gastrointestinal: Yes: Constipation, Pancreatitis Hepatobiliary: Yes: Cholelithiasis Renal/: Yes: Renal Calculi, Other (urge incontinence, enuresis) Heme/Onc: Yes: Cancer (right breast s/p chemo, XRT, lumpectomy) Psych: Yes: Anxiety, Bipolar (schizoaffective bipolar) Musculoskeletal: Yes: Osteoarthritis Endocrine: Yes: Diabetes Mellitus, Hypothyroidism - Past Surgical History Past Surgical History: Yes: Joint Replacement, Breast Biopsy, Cholecystectomy - Smoking History Smoking history: Never smoked Have you smoked in the past 12 months: No Aproximately how many cigarettes per day: 20 If you are a former smoker, when did you quit?: Three years ago - Alcohol/Substance Use Hx Alcohol Use: No History of Substance Use: reports: None - Social History ADL: Independent (walks with cane) Home Medications - Allergies Allergies/Adverse Reactions: Allergies Allergy/AdvReac Type Severity Reaction Status Date / Time acetaminophen [From Tylenol] Allergy "VOMITS" Verified 03/29/20 13:18 almond oil Allergy "ITCHY" Verified 03/29/20 13:18 citalopram hydrobromide Allergy "STROKE Verified 03/29/20 13:18 [From Celexa] LIKE SYMPTOMS" divalproex sodium Allergy "PANCREATIT Verified 03/29/20 13:18 [From Depakote] IS" Iodinated Contrast Media Allergy Verified 03/29/20 13:18 [Iodinated Contrast Media - IV Dye] lamotrigine [From Lamictal] Allergy "FACE Verified 03/29/20 13:18 SWELLS" lithium [[place]] Allergy "SEIZURES,SWOLLEN Verified 03/29/20 13:18 ARMS/LEGS" meperidine HCl [From Demerol] Allergy "TURNS RED Verified 03/29/20 13:18 WHEN MIXED WITH NOVACAINE" shellfish derived Allergy "TURNED Verified 03/29/20 13:18 RED /ITCHY" sulfamethoxazole Allergy "COLLAPSED, Verified 03/29/20 13:18 [From Bactrim] HEART ISSUE" topiramate [From Topamax] Allergy TO Verified 03/29/20 13:18 POISONOUS LEVELS" trimethoprim [From Bactrim] Allergy "COLLAPSED,HEART Verified 03/29/20 13:18 ISSUE" - Home Medications Home Medications: Ambulatory Orders Buspirone HCl [Buspar] 15 mg PO TID 03/20/14 Lorazepam [Ativan] 2 mg PO HS PRN 03/20/14 Rosuvastatin Calcium [Crestor] 10 mg PO HS 03/20/14 FA/Mv,Ca,Iron,Min/Lycopene/Lut [Centrum Tablet] 1 each PO DAILY 07/03/14 Anastrozole [Arimidex -] 1 mg PO DAILY #0 12/06/16 Gabapentin [Neurontin -] 100 mg PO Q8H #0 12/06/16 Insulin (Novolog) [Novolog Flexpen -] 0 units SQ ASDIR #0 12/06/16 Quetiapine Fumarate [Seroquel -] 800 mg PO HS #0 12/06/16 Quinapril HCl [Accupril -] 10 mg PO DAILY #0 12/06/16 Ziprasidone HCl [Geodon] 40 mg PO BID #0 12/06/16 Albuterol 0.083% Nebulizer Blaire [Ventolin 0.083% Nebulizer Soln -] 1 amp NEB Q4H PRN amp 09/28/17 Ketoconozole 2% Cream [Nizoral 2% Cream -] 1 applic TP DAILY #1 tube 09/28/17 Polyethylene Glycol 3350 [Miralax 119 gm Btl -] 17 gm PO DAILY PRN #1 bag 09/28/17 Albuterol 0.083% Nebulizer Blaire [Ventolin 0.083% Nebulizer Soln -] 1 amp NEB Q4H PRN amp 08/26/19 Insulin (Levemir) [Levemir Vial] 30 units SQ BID@0700,2200 units 08/26/19 Insulin Sliding Scale [Novolog Vial Sliding Scale -] 1 vial SQ TIDAC units 08/26/19 Levothyroxine [Synthroid -] 200 mcg PO DAILY@0700 tablet 08/26/19 Nystatin Oral Suspension - [Nystatin Oral Susp 129255 Units/5 ML -] 500,000 units PO Q6HPO cup 08/26/19 Tobramycin 0.3% Ophth Soln [Tobrex Ophthalmic Solution -] 1 drop OU Q4HWA drops 08/26/19 Warfarin Na [Coumadin -] 10 mg PO DAILY@1800 tablet 08/26/19 Buspirone HCl 15 mg PO TID 03/04/20 Seroquel - 800 mg PO HS 03/04/20 Synthroid 200 mcg PO DAILY 03/04/20 Lorazepam [Ativan] 1 mg PO HS PRN 03/05/20 Quinapril HCl 10 mg PO DAILY 03/05/20 Rosuvastatin Calcium [Crestor] 10 mg PO DAILY 03/05/20 Tramadol HCl [Ultram] 50 mg PO PRN PRN 03/05/20 Ziprasidone [Geodon -] 40 mg PO BID 03/05/20 Ascorbic Acid [Vitamin C] 2,000 mg PO BID #60 tablet 03/08/20 Zinc Sulfate [Orazinc -] 220 mg PO BID #30 capsule 03/08/20 Review of Systems Findings/Remarks: see [place]k Physical Examination Vital Signs: Vital Signs Temperature 98.4 F 05/04/20 11:46 Pulse Rate 78 05/04/20 14:20 Respiratory Rate 27 H 05/04/20 14:20 Blood Pressure 173/93 H 05/04/20 14:20 O2 Sat by Pulse Oximetry (%) 100 05/04/20 14:20 Findings/Remarks: As per Er Physician/ Resident-- Reviewed and discussed Labs: CBC, BMP 05/04/20 11:50 05/04/20 11:50 Imaging - Results X-ray: Report Reviewed Cat Scan: Report Reviewed Problem List - Problems (1) Nausea and vomiting Code(s): R11.2 - NAUSEA WITH VOMITING, UNSPECIFIED Qualifiers: Vomiting type: unspecified Vomiting Intractability: intractable Qualified Code(s): R11.2 - Nausea with vomiting, unspecified (2) Supratherapeutic INR Code(s): R79.1 - ABNORMAL COAGULATION PROFILE (3) ASHD (arteriosclerotic heart disease) Code(s): I25.10 - ATHSCL HEART DISEASE OF [place] CORONARY ARTERY W/O ANG PCTRS (4) Breast CA Code(s): C50.919 - MALIGNANT NEOPLASM OF UNSP SITE OF UNSPECIFIED FEMALE BREAST (5) COPD (chronic obstructive pulmonary disease) Code(s): J44.9 - CHRONIC OBSTRUCTIVE PULMONARY DISEASE, UNSPECIFIED Qualifiers: (6) Diabetes mellitus type 2, insulin dependent Code(s): E11.9 - TYPE 2 DIABETES MELLITUS WITHOUT COMPLICATIONS; Z79.4 - SNF (CURRENT) USE OF INSULIN (7) History of pulmonary embolism Code(s): Z86.711 - PERSONAL HISTORY OF PULMONARY EMBOLISM (8) Hypothyroidism Code(s): E03.9 - HYPOTHYROIDISM, UNSPECIFIED Qualifiers: (9) Morbid obesity with BMI of 40.0-44.9, adult Code(s): E66.01 - MORBID (SEVERE) OBESITY DUE TO EXCESS CALORIES; Z68.41 - BODY MASS INDEX (BMI) 40.0-44.9, ADULT (10) Obstructive sleep apnea on CPAP Code(s): G47.33 - OBSTRUCTIVE SLEEP APNEA (ADULT) (PEDIATRIC) (11) Schizophrenia Code(s): F20.9 - SCHIZOPHRENIA, UNSPECIFIED Qualifiers: Assessment/Plan Admit fluids Monitor Lytes Observe off abx Monitor bgm Hold Coumadin- Supratherapeutic Monitor INR Will follow LAbs ordered for tomorrow
[2020-05-04] MEDS: INSULIN SLIDING SCALE (NOVOLOG) 1 VIAL SQ SCH ×3 (16:46→22:07)
[2020-05-04] MEDS ORDERED: MORPHINE SULFATE 2 MG/ML VIAL IM ONE (17:43)
[2020-05-04] MEDS: LACTATED RINGERS SOLUTION 1,000 ML IV SCH (18:04)
[2020-05-04] MEDS: ONDANSETRON 4 MG/2 ML VIAL IVPB PRN (20:46)
[2020-05-04] MEDS ORDERED: INSULIN (NOVOLOG) ASPART 100 UNITS/ML 10ML VIAL ONE (21:07)
[2020-05-04] MEDS ORDERED: ZIPRASIDONE 40 MG CAPSULE PO SCH (22:00)
[2020-05-04] MEDS: INSULIN (LEVEMIR) 100 UNITS/ML UNITS SQ SCH (22:07)
[2020-05-04] MEDS: busPIRone HCL 5 MG TABLET PO SCH (22:08)
[2020-05-04] MEDS: GABAPENTIN 100 MG CAPSULE PO SCH (22:09)
[2020-05-04] MEDS: ROSUVASTATIN CA 10 MG TABLET (FP) PO SCH (22:09)
[2020-05-04] MEDS: ZINC SULFATE 220 MG CAPSULE (FP) PO SCH (22:09)
[2020-05-04] MEDS ORDERED: PT OWN MED DRAWER 7, Y5N ONE (22:14)
[2020-05-04] MEDS: QUEtiapine FUMARATE 200 MG TABLET PO SCH (22:40)
[2020-05-05] MEDS: busPIRone HCL 5 MG TABLET PO SCH ×3 (06:50→21:23)
[2020-05-05] MEDS: LEVOTHYROXINE NA 200 MCG TABLET PO SCH (06:51)
[2020-05-05] MEDS: GABAPENTIN 100 MG CAPSULE PO SCH ×3 (06:51→21:23)
[2020-05-05] MEDS: INSULIN SLIDING SCALE (NOVOLOG) 1 VIAL SQ SCH ×4 (06:51→21:38)
[2020-05-05 08:05] LABS: INR 2.75 (0.83-1.09); PROTHROMBIN TIME (PATIENT) 32.8 SEC (9.7-13.0)
[2020-05-05 08:10] LABS: BASO % 0.6 % (0-2.0); EOS % 2.3 % (0-4.5); HEMATOCRIT 36.9 % (32.4-45.2); HEMOGLOBIN 12.1 GM/dL (10.7-15.3); LYMPH % 18.7 % (8-40); MCH 28.3 pg (25.7-33.7); MCHC 32.7 g/dl (32.0-36.0); MEAN CELL VOLUME 86.6 fl (80-96); MEAN PLT VOLUME 8.6 fl (7.5-11.1); MONO % 7.4 % (3.8-10.2); PLATELET COUNT 215 K/MM3 (134-434); RBC 4.26 M/mm3 (3.60-5.2); RDW 16.5 % (11.6-15.6); WHITE BLOOD COUNT 10.6 K/mm3 (4.0-10.0)
[2020-05-05 08:32] LABS: BILIRUBIN,TOTAL 0.6 mg/dL (0.2-1); BLOOD UREA NITROGEN 12.4 mg/dL (7-18); CALCIUM 9.1 mg/dL (8.5-10.1); POTASSIUM 3.7 mmol/L (3.5-5.1)
[2020-05-05 08:33] LABS: ALBUMIN 3.2 g/dl (3.4-5.0); CREATININE 1.2 mg/dL (0.55-1.3); TOT PROT 6.6 g/dl (6.4-8.2)
[2020-05-05] MEDS: LACTATED RINGERS SOLUTION 1,000 ML IV SCH ×2 (08:37→17:55)
[2020-05-05] MEDS ORDERED: PT OWN MED DRAWER 7, Y5N ONE ×2 (09:34→17:39)
[2020-05-05] MEDS: ZINC SULFATE 220 MG CAPSULE (FP) PO SCH ×3 (09:48→21:31)
[2020-05-05] MEDS: ZIPRASIDONE 20 MG CAPSULE PO SCH ×2 (09:49→21:24)
[2020-05-05] MEDS: ONDANSETRON 4 MG/2 ML VIAL IVPB PRN (11:02)
--- NOTE | 2020-05-05 11:46 | PN ---
Progress Note, Physician History of Present Illness: Awake. + nausea chart reviewed Afebrile - Current Medication List Current Medications: Active Medications Albuterol Sulfate (Ventolin Hfa Inhaler -) 1 puff IH Q4H PRN PRN Reason: SHORT OF BREATH/WHEEZING Anastrozole (Arimidex -) 1 mg PO DAILY [facility] Buspirone HCl (Buspar -) 15 mg PO TID [facility] Last Admin: 05/05/20 06:50 Dose: 15 mg Documented by: Gabapentin (Neurontin -) 100 mg PO TID [facility] Last Admin: 05/05/20 06:51 Dose: 100 mg Documented by: Lactated Ringer's (Lactated Ringers Solution) 1,000 mls @ 100 mls/hr IV ASDIR [facility] Last Admin: 05/05/20 08:37 Dose: 100 mls/hr Documented by: Insulin Aspart (Novolog Vial Sliding Scale -) [address] [facility]; Protocol Last Admin: 05/05/20 06:51 Dose: Not Given Documented by: Insulin Detemir (Levemir Vial) 10 units SQ [facility] Last Admin: 05/04/20 22:07 Dose: 10 units Documented by: Levothyroxine Sodium (Synthroid -) 200 mcg PO DAILY@0700 [facility] Last Admin: 05/05/20 06:51 Dose: 200 mcg Documented by: Ondansetron HCl (Zofran Injection) 8 mg IVPB Q8H PRN PRN Reason: NAUSEA Last Admin: 05/05/20 11:02 Dose: 8 mg Documented by: Quetiapine Fumarate (Seroquel -) 800 mg PO [facility] Last Admin: 05/04/20 22:40 Dose: 800 mg Documented by: Quinapril HCl (Accupril -) 10 mg PO DAILY [facility] Rosuvastatin Calcium (Crestor -) 10 mg PO [facility] Last Admin: 05/04/20 22:09 Dose: 10 mg Documented by: Zinc Sulfate (Orazinc -) 220 mg PO BID [facility] Last Admin: 05/05/20 09:48 Dose: 220 mg Documented by: Ziprasidone (Geodon -) 40 mg PO BID [facility] Last Admin: 05/05/20 09:49 Dose: 40 mg Documented by: - Objective Vital Signs: Vital Signs Temperature 98 F 05/05/20 09:44 Pulse Rate 84 05/05/20 09:44 Respiratory Rate 18 05/05/20 09:44 Blood Pressure 157/94 05/05/20 09:44 O2 Sat by Pulse Oximetry (%) 97 05/05/20 07:56 Constitutional: Yes: No Distress Eyes: Yes: Conjunctiva Clear Neck: Yes: Supple Respiratory: Yes: CTA Bilaterally Gastrointestinal: Yes: Soft, Abdomen, Obese Edema: No Neurological: Yes: Alert Psychiatric: Yes: Alert Labs: CBC, BMP 05/05/20 07:00 05/05/20 07:00 INR, PTT INR 2.75 (0.83-1.09) H 05/05/20 07:00 - ....Imaging Chest X-ray: Report Reviewed Cat Scan: Report Reviewed Problem List - Problems (1) Nausea and vomiting Code(s): R11.2 - NAUSEA WITH VOMITING, UNSPECIFIED Qualifiers: Vomiting type: unspecified Vomiting Intractability: intractable Qualified Code(s): R11.2 - Nausea with vomiting, unspecified (2) Supratherapeutic INR Code(s): R79.1 - ABNORMAL COAGULATION PROFILE (3) ASHD (arteriosclerotic heart disease) Code(s): I25.10 - ATHSCL HEART DISEASE OF [place] CORONARY ARTERY W/O ANG PCTRS (4) Breast CA Code(s): C50.919 - MALIGNANT NEOPLASM OF UNSP SITE OF UNSPECIFIED FEMALE BREAST (5) COPD (chronic obstructive pulmonary disease) Code(s): J44.9 - CHRONIC OBSTRUCTIVE PULMONARY DISEASE, UNSPECIFIED Qualifiers: (6) Diabetes mellitus type 2, insulin dependent Code(s): E11.9 - TYPE 2 DIABETES MELLITUS WITHOUT COMPLICATIONS; Z79.4 - [facility] (CURRENT) USE OF INSULIN (7) History of pulmonary embolism Code(s): Z86.711 - PERSONAL HISTORY OF PULMONARY EMBOLISM (8) Hypothyroidism Code(s): E03.9 - HYPOTHYROIDISM, UNSPECIFIED Qualifiers: (9) Morbid obesity with BMI of 40.0-44.9, adult Code(s): E66.01 - MORBID (SEVERE) OBESITY DUE TO EXCESS CALORIES; Z68.41 - BODY MASS INDEX (BMI) 40.0-44.9, ADULT (10) Obstructive sleep apnea on CPAP Code(s): G47.33 - OBSTRUCTIVE SLEEP APNEA (ADULT) (PEDIATRIC) (11) Schizophrenia Code(s): F20.9 - SCHIZOPHRENIA, UNSPECIFIED Qualifiers: Assessment/Plan fluids Monitor Lytes Observe off abx Monitor bgm restart Coumadin- Monitor INR Will follow D/W RN also
[2020-05-05] MEDS: QUINAPRIL HCL 10 MG TABLET (FP) PO SCH (15:25)
[2020-05-05] MEDS: ANASTROZOLE 1 MG TABLET PO SCH (15:26)
[2020-05-05] MEDS ORDERED: INSULIN (NOVOLOG) ASPART 100 UNITS/ML 10ML VIAL ONE ×2 (16:48→21:15)
--- NOTE | 2020-05-05 17:52 | EKG ---
Test Reason : Blood Pressure : / mmHG Vent. Rate : 083 BPM Atrial Rate : 083 BPM P-R Int : 190 ms QRS Dur : 124 ms QT Int : 410 ms P-R-T Axes : 076 -54 062 degrees QTc Int : 481 ms NORMAL SINUS RHYTHM LEFT ANTERIOR FASCICULAR BLOCK LEFT VENTRICULAR HYPERTROPHY WITH QRS WIDENING ABNORMAL ECG WHEN COMPARED WITH ECG OF 24-AUG-2019 14:58, QRS DURATION HAS INCREASED MINIMAL CRITERIA FOR ANTERIOR INFARCT ARE NO LONGER PRESENT Confirmed by MD Durga, Luis ([id number]) on 05/05/2020 5:51:57 PM Referred By: Confirmed By:Luis Calixto MD
[2020-05-05] MEDS: WARFARIN NA 7.5 MG TABLET (FP) PO SCH (17:57)
--- NOTE | 2020-05-05 17:58 | CON.GI ---
Consult Consult Specialty:: coverage for Dr Kidd - History of Present Illness History of Present Illness: 61 y/o female with history of morbid obesity insulin-dependent diabetes, COPD, hypertension, OSAS on cpap, history of breast CA status post chemotherapy was doing well until today when she developed diffuse abdominal pain where the surgical mesh was inserted because of a ventral hernia repair associated with nausea and vomiting. She was able to tolerate clear liquids.She was initially admitted on with bloody diarrhea which has resolved overnight. She was about to be discharge - Past Medical History [employer]: Yes: Seizure Cardio/Vascular: Yes: HTN, Hyperlipdemia Pulmonary: Yes: COPD, Sleep Apnea, O2 Dependent Gastrointestinal: Yes: Constipation, Pancreatitis Hepatobiliary: Yes: Cholelithiasis Renal/: Yes: Renal Calculi, Other (urge incontinence, enuresis) ...: No Psych: Yes: Anxiety, Bipolar (schizoaffective bipolar) Musculoskeletal: Yes: Osteoarthritis Endocrine: Yes: Diabetes Mellitus, Hypothyroidism Additional Medical History: morbid obesity - Past Surgical History Past Surgical History: Yes: Joint Replacement, Breast Biopsy, Cholecystectomy - Alcohol/Substance Use Hx Alcohol Use: No History of Substance Use: reports: None - Smoking History Smoking history: Never smoked Have you smoked in the past 12 months: No Aproximately how many cigarettes per day: 20 If you are a former smoker, when did you quit?: Three years ago - Social History ADL: Independent (walks with cane) Home Medications - Allergies Allergies/Adverse Reactions: Allergies Allergy/AdvReac Type Severity Reaction Status Date / Time acetaminophen [From Tylenol] Allergy "VOMITS" Verified 03/29/20 13:18 almond oil Allergy "ITCHY" Verified 03/29/20 13:18 citalopram hydrobromide Allergy "STROKE Verified 03/29/20 13:18 [From Celexa] LIKE SYMPTOMS" divalproex sodium Allergy "PANCREATIT Verified 03/29/20 13:18 [From Depakote] IS" Iodinated Contrast Media Allergy Verified 03/29/20 13:18 [Iodinated Contrast Media - IV Dye] lamotrigine [From Lamictal] Allergy "FACE Verified 03/29/20 13:18 SWELLS" lithium [[place]] Allergy "SEIZURES,SWOLLEN Verified 03/29/20 13:18 ARMS/LEGS" meperidine HCl [From Demerol] Allergy "TURNS RED Verified 03/29/20 13:18 WHEN MIXED WITH NOVACAINE" shellfish derived Allergy "TURNED Verified 03/29/20 13:18 RED /ITCHY" sulfamethoxazole Allergy "COLLAPSED, Verified 03/29/20 13:18 [From Bactrim] HEART ISSUE" topiramate [From Topamax] Allergy TO Verified 03/29/20 13:18 POISONOUS LEVELS" trimethoprim [From Bactrim] Allergy "COLLAPSED,HEART Verified 03/29/20 13:18 ISSUE" - Home Medications Home Medications: Ambulatory Orders Buspirone HCl [Buspar] 15 mg PO TID 03/20/14 Lorazepam [Ativan] 2 mg PO HS PRN 03/20/14 Rosuvastatin Calcium [Crestor] 10 mg PO HS 03/20/14 FA/Mv,Ca,Iron,Min/Lycopene/Lut [Centrum Tablet] 1 each PO DAILY 07/03/14 Anastrozole [Arimidex -] 1 mg PO DAILY #0 12/06/16 Gabapentin [Neurontin -] 100 mg PO Q8H #0 12/06/16 Insulin (Novolog) [Novolog Flexpen -] 0 units SQ ASDIR #0 12/06/16 Quetiapine Fumarate [Seroquel -] 800 mg PO HS #0 12/06/16 Quinapril HCl [Accupril -] 10 mg PO DAILY #0 12/06/16 Ziprasidone HCl [Geodon] 40 mg PO BID #0 12/06/16 Albuterol 0.083% Nebulizer Blaire [Ventolin 0.083% Nebulizer Soln -] 1 amp NEB Q4H PRN amp 09/28/17 Ketoconozole 2% Cream [Nizoral 2% Cream -] 1 applic TP DAILY #1 tube 09/28/17 Polyethylene Glycol 3350 [Miralax 119 gm Btl -] 17 gm PO DAILY PRN #1 bag 09/28/17 Albuterol 0.083% Nebulizer Blaire [Ventolin 0.083% Nebulizer Soln -] 1 amp NEB Q4H PRN amp 08/26/19 Insulin (Levemir) [Levemir Vial] 30 units SQ BID@0700,2200 units 08/26/19 Insulin Sliding Scale [Novolog Vial Sliding Scale -] 1 vial SQ TIDAC units 08/26/19 Levothyroxine [Synthroid -] 200 mcg PO DAILY@0700 tablet 08/26/19 Nystatin Oral Suspension - [Nystatin Oral Susp 149017 Units/5 ML -] 500,000 units PO Q6HPO cup 08/26/19 Tobramycin 0.3% Ophth Soln [Tobrex Ophthalmic Solution -] 1 drop OU Q4HWA drops 08/26/19 Warfarin Na [Coumadin -] 10 mg PO DAILY@1800 tablet 08/26/19 Buspirone HCl 15 mg PO TID 03/04/20 Seroquel - 800 mg PO HS 03/04/20 Synthroid 200 mcg PO DAILY 03/04/20 Lorazepam [Ativan] 1 mg PO HS PRN 03/05/20 Quinapril HCl 10 mg PO DAILY 03/05/20 Rosuvastatin Calcium [Crestor] 10 mg PO DAILY 03/05/20 Tramadol HCl [Ultram] 50 mg PO PRN PRN 03/05/20 Ziprasidone [Geodon -] 40 mg PO BID 03/05/20 Ascorbic Acid [Vitamin C] 2,000 mg PO BID #60 tablet 03/08/20 Zinc Sulfate [Orazinc -] 220 mg PO BID #30 capsule 03/08/20 Physical Exam-GI Vital Signs: Vital Signs Temperature 98 F 05/05/20 09:44 Pulse Rate 84 05/05/20 09:44 Respiratory Rate 18 05/05/20 09:44 Blood Pressure 157/94 05/05/20 09:44 O2 Sat by Pulse Oximetry (%) 97 05/05/20 07:56 Constitutional: Yes: Obese Eyes: Yes: Conjunctiva Clear HENT: Yes: Atraumatic Neck: Yes: Supple Cardiovascular: Yes: Regular Rate and Rhythm Respiratory: Yes: CTA Bilaterally ...Palpate: Yes: Soft, Tenderness (--diffuse over the mesh site). No: Firm/Rigid, Hepatomegaly, Mass, Pulsatile Mass, Splenomegaly Labs: CBC, BMP 05/05/20 07:00 05/05/20 07:00 INR, PTT INR 2.75 (0.83-1.09) H 05/05/20 07:00 CBC,CMP WBC 10.6 K/mm3 (4.0-10.0) H 05/05/20 07:00 RBC 4.26 M/mm3 (3.60-5.2) 05/05/20 07:00 Hgb 12.1 GM/dL (10.7-15.3) 05/05/20 07:00 Hct 36.9 % (32.4-45.2) 05/05/20 07:00 MCV 86.6 fl (80-96) 05/05/20 07:00 MCH 28.3 pg (25.7-33.7) 05/05/20 07:00 MCHC 32.7 g/dl (32.0-36.0) 05/05/20 07:00 RDW 16.5 % (11.6-15.6) H 05/05/20 07:00 Plt Count 215 K/MM3 (134-434) 05/05/20 07:00 MPV 8.6 fl (7.5-11.1) 05/05/20 07:00 Absolute Neuts (auto) 7.5 K/mm3 (1.5-8.0) 05/05/20 07:00 Neutrophils % 71.0 % (42.8-82.8) 05/05/20 07:00 Lymphocytes % 18.7 % (8-40) D 05/05/20 07:00 Monocytes % 7.4 % (3.8-10.2) 05/05/20 07:00 Eosinophils % 2.3 % (0-4.5) D 05/05/20 07:00 Basophils % 0.6 % (0-2.0) 05/05/20 07:00 Nucleated RBC % 0 % (0-0) 05/05/20 07:00 Sodium 143 mmol/L (136-145) 05/05/20 07:00 Potassium 3.7 mmol/L (3.5-5.1) 05/05/20 07:00 Chloride 108 mmol/L (98-107) H 05/05/20 07:00 Carbon Dioxide 26 mmol/L (21-32) 05/05/20 07:00 Anion Gap 8 MMOL/L (8-16) 05/05/20 07:00 BUN 12.4 mg/dL (7-18) 05/05/20 07:00 Creatinine 1.2 mg/dL (0.55-1.3) 05/05/20 07:00 Est GFR (CKD-EPI)AfAm 55.70 05/05/20 07:00 Est GFR (CKD-EPI)NonAf 48.06 05/05/20 07:00 POC Glucometer 182 UNITS (80-120) 05/05/20 16:15 Random Glucose 143 mg/dL (74-106) H 05/05/20 07:00 Hemoglobin A1c % 8.6 % (4.2-6.3) H 05/05/20 07:00 Lactic Acid 2.4 mmol/L (0.4-2.0) H* 05/04/20 11:50 Calcium 9.1 mg/dL (8.5-10.1) 05/05/20 07:00 Phosphorus 2.8 mg/dL (2.5-4.9) 05/04/20 11:50 Magnesium 1.8 mg/dL (1.8-2.4) 05/04/20 11:50 Total Bilirubin 0.6 mg/dL (0.2-1) 05/05/20 07:00 Direct Bilirubin 0.1 mg/dL (0.0-0.2) 05/04/20 11:50 AST 13 U/L (15-37) L 05/05/20 07:00 ALT 23 U/L (13-61) 05/05/20 07:00 Alkaline Phosphatase 112 U/L (45-117) 05/05/20 07:00 Creatine Kinase 240 U/L (26-192) H 05/04/20 11:50 Creatine Kinase Index 0.8 % (0.0-5.0) 05/04/20 11:50 CK-MB (CK-2) 2.0 ng/mL (0.5-3.6) 05/04/20 11:50 CK-MB (CK-2) Cancelled 05/04/20 11:50 Troponin I < 0.02 ng/ml (0.00-0.05) 05/04/20 11:50 Total Protein 6.6 g/dl (6.4-8.2) 05/05/20 07:00 Albumin 3.2 g/dl (3.4-5.0) L 05/05/20 07:00 Lipase 364 U/L (73-393) 05/04/20 11:50 TSH 18.50 uIU/ml (0.358-3.74) H 05/05/20 07:00 Problem List - Problems (1) Abdominal pain Assessment/Plan: associated with nausea nd vomiting r/o secondary to dyspepsia, gastroparesis and possibly IBS R> Pantoprazole 40mg daily Reglan 5mg 30 mi ac advance diet as tolerated further gi w/u as an outpatient Code(s): R10.9 - UNSPECIFIED ABDOMINAL PAIN Qualifiers: Abdominal location: generalized Qualified Code(s): R10.84 - Generalized abdominal pain
--- NOTE | 2020-05-05 18:09 | CON.HO ---
Consult Consult Specialty:: Medical Oncology Reason for Consultation:: N/V. Hx of Breast CA - History of Present Illness History of Present Illness: 64 y/o lady w a hx of IDDM, pancreatitis, copd on 3L O2, htn, hld, schizoaffective disorder, seizures,obesity, sleep apnea (uses cpap at night with 3L NC O2), breast ca s/p lumpectomy/chemo/radiation who presented to the ER with lower abdominal pain with bloody diarrhea x1 day. States she was Covid-19 positive 1 month ago. Patient stated to the ER team that the night prior to the admission she ate Manicotti with cheese and immediately afterwards became nauseous, started vomiting, and then 1 hour later started experiencing diarrhea. The patient went to sleep and then this morning woke up and her diarrhea became bloody. She states that here in the ER she has diffuse abdominal pain in the upper, middle, lower, right and left regions. She feels extremely nauseous and feels like she is going to pass out, but denies actually passing out. She also says she feels very warm and believes she has a fever despite her oral tempera ture in triage being afebrile. She mentioned her brother ate the same w/o complications. She mentioned that has a new nodule in her R breast and was going to get diagnostic imaging but this could not be obtained due to the COVID- 19 pandemic. 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: Yes: Seizure Cardio/Vascular: Yes: HTN, Hyperlipdemia Pulmonary: Yes: COPD, Sleep Apnea, O2 Dependent Gastrointestinal: Yes: Constipation, Pancreatitis Hepatobiliary: Yes: Cholelithiasis Renal/: Yes: Renal Calculi, Other (urge incontinence, enuresis) ...: No Psych: Yes: Anxiety, Bipolar (schizoaffective bipolar) Musculoskeletal: Yes: Osteoarthritis Endocrine: Yes: Diabetes Mellitus, Hypothyroidism Additional Medical History: morbid obesity - Past Surgical History Past Surgical History: Yes: Joint Replacement, Breast Biopsy, Cholecystectomy - Alcohol/Substance Use Hx Alcohol Use: No History of Substance Use: reports: None - Smoking History Smoking history: Never smoked Have you smoked in the past 12 months: No Aproximately how many cigarettes per day: 20 If you are a former smoker, when did you quit?: Three years ago - Social History ADL: Independent (walks with cane) Home Medications - Allergies Allergies/Adverse Reactions: Allergies Allergy/AdvReac Type Severity Reaction Status Date / Time acetaminophen [From Tylenol] Allergy "VOMITS" Verified 03/29/20 13:18 almond oil Allergy "ITCHY" Verified 03/29/20 13:18 citalopram hydrobromide Allergy "STROKE Verified 03/29/20 13:18 [From Celexa] LIKE SYMPTOMS" divalproex sodium Allergy "PANCREATIT Verified 03/29/20 13:18 [From Depakote] IS" Iodinated Contrast Media Allergy Verified 03/29/20 13:18 [Iodinated Contrast Media - IV Dye] lamotrigine [From Lamictal] Allergy "FACE Verified 03/29/20 13:18 SWELLS" lithium [[place]] Allergy "SEIZURES,SWOLLEN Verified 03/29/20 13:18 ARMS/LEGS" meperidine HCl [From Demerol] Allergy "TURNS RED Verified 03/29/20 13:18 WHEN MIXED WITH NOVACAINE" shellfish derived Allergy "TURNED Verified 03/29/20 13:18 RED /ITCHY" sulfamethoxazole Allergy "COLLAPSED, Verified 03/29/20 13:18 [From Bactrim] HEART ISSUE" topiramate [From Topamax] Allergy TO Verified 03/29/20 13:18 POISONOUS LEVELS" trimethoprim [From Bactrim] Allergy "COLLAPSED,HEART Verified 03/29/20 13:18 ISSUE" - Home Medications Home Medications: Ambulatory Orders Buspirone HCl [Buspar] 15 mg PO TID 03/20/14 Lorazepam [Ativan] 2 mg PO HS PRN 03/20/14 Rosuvastatin Calcium [Crestor] 10 mg PO HS 03/20/14 FA/Mv,Ca,Iron,Min/Lycopene/Lut [Centrum Tablet] 1 each PO DAILY 07/03/14 Anastrozole [Arimidex -] 1 mg PO DAILY #0 12/06/16 Gabapentin [Neurontin -] 100 mg PO Q8H #0 12/06/16 Insulin (Novolog) [Novolog Flexpen -] 0 units SQ ASDIR #0 12/06/16 Quetiapine Fumarate [Seroquel -] 800 mg PO HS #0 01/21/17 Quinapril HCl [Accupril -] 10 mg PO DAILY #0 12/06/16 Ziprasidone HCl [Geodon] 40 mg PO BID #0 12/06/16 Albuterol 0.083% Nebulizer Blaire [Ventolin 0.083% Nebulizer Soln -] 1 amp NEB Q4H PRN amp 09/28/17 Ketoconozole 2% Cream [Nizoral 2% Cream -] 1 applic TP DAILY #1 tube 09/28/17 Polyethylene Glycol 3350 [Miralax 119 gm Btl -] 17 gm PO DAILY PRN #1 bag 09/28/17 Albuterol 0.083% Nebulizer Blaire [Ventolin 0.083% Nebulizer Soln -] 1 amp NEB Q4H PRN amp 08/26/19 Insulin (Levemir) [Levemir Vial] 30 units SQ BID@0700,2200 units 08/26/19 Insulin Sliding Scale [Novolog Vial Sliding Scale -] 1 vial SQ TIDAC units 08/26/19 Levothyroxine [Synthroid -] 200 mcg PO DAILY@0700 tablet 08/26/19 Nystatin Oral Suspension - [Nystatin Oral Susp 906579 Units/5 ML -] 500,000 units PO Q6HPO cup 08/26/19 Tobramycin 0.3% Ophth Soln [Tobrex Ophthalmic Solution -] 1 drop OU Q4HWA drops 08/26/19 Warfarin Na [Coumadin -] 10 mg PO DAILY@1800 tablet 08/26/19 Buspirone HCl 15 mg PO TID 03/04/20 Seroquel - 800 mg PO HS 03/04/20 Synthroid 200 mcg PO DAILY 03/04/20 Lorazepam [Ativan] 1 mg PO HS PRN 03/05/20 Quinapril HCl 10 mg PO DAILY 03/05/20 Rosuvastatin Calcium [Crestor] 10 mg PO DAILY 03/05/20 Tramadol HCl [Ultram] 50 mg PO PRN PRN 03/05/20 Ziprasidone [Geodon -] 40 mg PO BID 03/05/20 Ascorbic Acid [Vitamin C] 2,000 mg PO BID #60 tablet 03/08/20 Zinc Sulfate [Orazinc -] 220 mg PO BID #30 capsule 03/08/20 Physical Exam Vital Signs: Vital Signs Temperature 98 F 05/05/20 09:44 Pulse Rate 84 05/05/20 09:44 Respiratory Rate 18 05/05/20 09:44 Blood Pressure 157/94 05/05/20 09:44 O2 Sat by Pulse Oximetry (%) 97 05/05/20 07:56 Constitutional: Yes: Well Nourished, No Distress Eyes: Yes: WNL, Conjunctiva Clear HENT: Yes: WNL, Atraumatic, Normocephalic Neck: Yes: WNL, Supple Cardiovascular: Yes: WNL Respiratory: Yes: WNL Gastrointestinal: Yes: WNL, Tenderness, Rebound Breast(s): Yes: Right (3-4 cm lesion, linear hard to the touch) Musculoskeletal: Yes: WNL Extremities: Yes: WNL Edema: Yes Integumentary: Yes: WNL Neurological: Yes: WNL, Alert ...Motor Strength: WNL Psychiatric: Yes: WNL Labs: CBC, BMP 05/05/20 07:00 05/05/20 07:00 Assessment/Plan 64 y/o lady w a hx of IDDM, pancreatitis, copd on 3L O2, htn, hld, schizoaffective disorder, seizures,obesity, sleep apnea (uses cpap at night with 3L NC O2), breast ca s/p lumpectomy/chemo/radiation [address] Garg and on Anastrozole maintenance who presented to the ER with lower abdom inal pain with bloody diarrhea x1 day. States she was Covid-19 positive 1 month ago. Patient stated to the ER team that the night prior to the admission she ate Manicotti with cheese and immediately afterwards became nauseous, started vomiting, and then 1 hour later started experiencing diarrhea. The patient went to sleep and then this morning woke up and her diarrhea became bloody. She states that here in the ER she has diffuse abdominal pain in the upper, middle, lower, right and left regions. She feels extremely nauseous and feels like she is going to pass out, but denies actually passing out. She also says she feels very warm and believes she has a fever despite her oral temperature in triage being afebrile. She mentioned her brother ate the same w/o complications. She mentioned that has a new nodule in her R breast and was going to get diagnostic imaging but this could not be obtained due to the COVID-19 pandemic. Recommend: 1) Bilateral Mammogram and Breast US. Has palpable mass in R breast 2) Vomiting likley due to gastroparesis 3) Thank you for this consultation
[2020-05-05] MEDS: METOCLOPRAMIDE HCL 10 MG TABLET (FP) PO SCH (18:19)
[2020-05-05] MEDS: PANTOPRAZOLE 40 MG TABLET PO SCH (18:19)
[2020-05-05] MEDS: QUEtiapine FUMARATE 200 MG TABLET PO SCH (21:22)
[2020-05-05] MEDS: ROSUVASTATIN CA 10 MG TABLET (FP) PO SCH (21:23)
[2020-05-05] MEDS: INSULIN (LEVEMIR) 100 UNITS/ML UNITS SQ SCH (21:36)
[2020-05-06] MEDS: LACTATED RINGERS SOLUTION 1,000 ML IV SCH ×2 (01:26→15:27)
[2020-05-06] MEDS: LEVOTHYROXINE NA 200 MCG TABLET PO SCH (06:02)
[2020-05-06] MEDS: busPIRone HCL 5 MG TABLET PO SCH ×3 (06:02→23:01)
[2020-05-06] MEDS: METOCLOPRAMIDE HCL 10 MG TABLET (FP) PO SCH ×3 (06:02→17:33)
[2020-05-06] MEDS: INSULIN SLIDING SCALE (NOVOLOG) 1 VIAL SQ SCH ×4 (06:03→21:27)
[2020-05-06] MEDS: GABAPENTIN 100 MG CAPSULE PO SCH ×3 (06:03→21:24)
[2020-05-06 07:02] LABS: INR 3.04 (0.83-1.09); PROTHROMBIN TIME (PATIENT) 36.3 SEC (9.7-13.0)
[2020-05-06] MEDS ORDERED: PT OWN MED DRAWER 7, Y5N ONE ×3 (08:58→21:02)
[2020-05-06] MEDS: QUINAPRIL HCL 10 MG TABLET (FP) PO SCH (09:02)
[2020-05-06] MEDS: ZIPRASIDONE 20 MG CAPSULE PO SCH ×2 (09:02→21:25)
[2020-05-06] MEDS: ANASTROZOLE 1 MG TABLET PO SCH (09:02)
[2020-05-06] MEDS: PANTOPRAZOLE 40 MG TABLET PO SCH (09:02)
[2020-05-06] MEDS: ZINC SULFATE 220 MG CAPSULE (FP) PO SCH ×2 (09:03→21:25)
[2020-05-06] MEDS: ALBUTEROL SO4 HFA INHALER IH PRN ×2 (10:33→23:06)
--- NOTE | 2020-05-06 11:47 | PN ---
Progress Note, Physician History of Present Illness: Pt seen/ examined feels same GI consult noted/ appreciated as well as d/w - Current Medication List Current Medications: Active Medications Albuterol Sulfate (Ventolin Hfa Inhaler -) 1 puff IH Q4H PRN PRN Reason: SHORT OF BREATH/WHEEZING Last Admin: 05/06/20 10:33 Dose: 1 puff Documented by: Anastrozole (Arimidex -) 1 mg PO DAILY [facility] Last Admin: 05/06/20 09:02 Dose: 1 mg Documented by: Buspirone HCl (Buspar -) 15 mg PO TID [facility] Last Admin: 05/06/20 06:02 Dose: 15 mg Documented by: Gabapentin (Neurontin -) 100 mg PO TID [facility] Last Admin: 05/06/20 06:03 Dose: 100 mg Documented by: Lactated Ringer's (Lactated Ringers Solution) 1,000 mls @ 100 mls/hr IV ASDIR [facility] Last Admin: 05/06/20 01:26 Dose: 100 mls/hr Documented by: Insulin Aspart (Novolog Vial Sliding Scale -) 1 vial SQ [facility]; Protocol Last Admin: 05/06/20 06:03 Dose: Not Given Documented by: Insulin Detemir (Levemir Vial) 10 units SQ [facility] Last Admin: 05/05/20 21:36 Dose: 10 units Documented by: Levothyroxine Sodium (Synthroid -) 200 mcg PO DAILY@0700 [facility] Last Admin: 05/06/20 06:02 Dose: 200 mcg Documented by: Metoclopramide HCl (Reglan -) 5 mg PO TIDAC [facility] Last Admin: 05/06/20 06:02 Dose: 5 mg Documented by: Ondansetron HCl (Zofran Injection) 8 mg IVPB Q8H PRN PRN Reason: NAUSEA Last Admin: 05/05/20 11:02 Dose: 8 mg Documented by: Pantoprazole Sodium (Protonix -) 40 mg PO DAILY [facility] Last Admin: 05/06/20 09:02 Dose: 40 mg Documented by: Quetiapine Fumarate (Seroquel -) 800 mg PO [facility] Last Admin: 05/05/20 21:22 Dose: 800 mg Documented by: Quinapril HCl (Accupril -) 10 mg PO DAILY [facility] Last Admin: 05/06/20 09:02 Dose: 10 mg Documented by: Rosuvastatin Calcium (Crestor -) 10 mg PO HS [facility] Last Admin: 05/05/20 21:23 Dose: 10 mg Documented by: Warfarin Sodium (Coumadin -) 7.5 mg PO DAILY@1800 [facility] Last Admin: 05/05/20 17:57 Dose: 7.5 mg Documented by: Zinc Sulfate (Orazinc -) 220 mg PO BID [facility] Last Admin: 05/06/20 09:03 Dose: Not Given Documented by: Ziprasidone (Geodon -) 40 mg PO BID [facility] Last Admin: 05/06/20 09:02 Dose: 40 mg Documented by: - Objective Vital Signs: Vital Signs Temperature 98.3 F 05/06/20 05:30 Pulse Rate 71 05/06/20 05:30 Respiratory Rate 20 05/06/20 08:20 Blood Pressure 121/66 05/06/20 05:30 O2 Sat by Pulse Oximetry (%) 96 05/06/20 08:20 Constitutional: Yes: No Distress, Anxious, Obese Eyes: Yes: Conjunctiva Clear Neck: Yes: Supple Cardiovascular: Yes: Regular Rate and Rhythm Respiratory: Yes: Diminished Gastrointestinal: Yes: Soft, Abdomen, Obese, Tenderness (generalized -- no R/R) Edema: No Neurological: Yes: Alert Psychiatric: Yes: Alert Labs: CBC, BMP 05/05/20 07:00 05/05/20 07:00 INR, PTT INR 3.04 (0.83-1.09) H 05/06/20 06:35 Problem List - Problems (1) Nausea and vomiting Code(s): R11.2 - NAUSEA WITH VOMITING, UNSPECIFIED Qualifiers: Vomiting type: unspecified Vomiting Intractability: intractable Qualified Code(s): R11.2 - Nausea with vomiting, unspecified (2) Supratherapeutic INR Code(s): R79.1 - ABNORMAL COAGULATION PROFILE (3) ASHD (arteriosclerotic heart disease) Code(s): I25.10 - ATHSCL HEART DISEASE OF [place] CORONARY ARTERY W/O ANG PCTRS (4) Breast CA Code(s): C50.919 - MALIGNANT NEOPLASM OF UNSP SITE OF UNSPECIFIED FEMALE BREAST (5) COPD (chronic obstructive pulmonary disease) Code(s): J44.9 - CHRONIC OBSTRUCTIVE PULMONARY DISEASE, UNSPECIFIED Qualifiers: (6) Diabetes mellitus type 2, insulin dependent Code(s): E11.9 - TYPE 2 DIABETES MELLITUS WITHOUT COMPLICATIONS; Z79.4 - SENIOR CARE (CURRENT) USE OF INSULIN (7) History of pulmonary embolism Code(s): Z86.711 - PERSONAL HISTORY OF PULMONARY EMBOLISM (8) Hypothyroidism Code(s): E03.9 - HYPOTHYROIDISM, UNSPECIFIED Qualifiers: (9) Morbid obesity with BMI of 40.0-44.9, adult Code(s): E66.01 - MORBID (SEVERE) OBESITY DUE TO EXCESS CALORIES; Z68.41 - BODY MASS INDEX (BMI) 40.0-44.9, ADULT (10) Obstructive sleep apnea on CPAP Code(s): G47.33 - OBSTRUCTIVE SLEEP APNEA (ADULT) (PEDIATRIC) (11) Schizophrenia Code(s): F20.9 - SCHIZOPHRENIA, UNSPECIFIED Qualifiers: Assessment/Plan Continue fluids Monitor Lytes Observe off abx Monitor bgm restarted Coumadin-hold today Monitor INR Will follow D/W RN also Oncology consult also noted-
--- NOTE | 2020-05-06 16:40 | PN.HO ---
Progress Note (short form) - Note Progress Note: S: Abdominal pain LLQ O: Last Vital Signs Temp Pulse Resp BP Pulse Ox 97.8 F 82 20 141/77 96 05/06/20 14:12 05/06/20 14:12 05/06/20 14:12 05/06/20 14:12 05/06/20 08:20 Current Medications Generic Name Dose Route Start Last Admin Trade Name Freq PRN Reason Stop Dose Admin Albuterol Sulfate 1 puff 05/04/20 15:47 05/06/20 10:33 Ventolin Hfa Inhaler - IH 1 puff Q4H PRN Administration SHORT OF BREATH/WHEEZING Anastrozole 1 mg 05/05/20 10:00 05/06/20 09:02 Arimidex - PO 1 mg DAILY [facility] Administration Buspirone HCl 15 mg 05/04/20 22:00 05/06/20 15:27 Buspar - PO 15 mg TID [facility] Administration Gabapentin 100 mg 05/04/20 22:00 05/06/20 15:27 Neurontin - PO 100 mg TID [facility] Administration Lactated Ringer's 1,000 mls @ 100 mls/hr 05/04/20 16:00 05/06/20 15:27 Lactated Ringers Solution IV 100 mls/hr ASDIR [facility] Administration Insulin Aspart 1 vial 05/04/20 16:30 05/06/20 16:15 Novolog Vial Sliding Scale - SQ Not Given ACHS [facility] Protocol Insulin Detemir 10 units 05/04/20 22:00 05/05/20 21:36 Levemir Vial SQ 10 units HS [facility] Administration Levothyroxine Sodium 200 mcg 05/05/20 07:00 05/06/20 06:02 Synthroid - PO 200 mcg DAILY@0700 [facility] Administration Metoclopramide HCl 5 mg 05/05/20 18:15 05/06/20 12:09 Reglan - PO Not Given TIDAC [facility] Ondansetron HCl 8 mg 05/04/20 15:52 05/05/20 11:02 Zofran Injection IVPB 8 mg Q8H PRN Administration NAUSEA Pantoprazole Sodium 40 mg 05/05/20 18:15 05/06/20 09:02 Protonix - PO 40 mg DAILY [facility] Administration Quetiapine Fumarate 800 mg 05/04/20 22:00 05/05/20 21:22 Seroquel - PO 800 mg HS [facility] Administration Quinapril HCl 10 mg 05/05/20 10:00 05/06/20 09:02 Accupril - PO 10 mg DAILY [facility] Administration Rosuvastatin Calcium 10 mg 05/04/20 22:00 05/05/20 21:23 Crestor - PO 10 mg HS [facility] Administration Warfarin Sodium 7.5 mg 05/05/20 18:00 05/05/20 17:57 Coumadin - PO 7.5 mg DAILY@1800 [facility] Administration Zinc Sulfate 220 mg 05/04/20 22:00 05/06/20 09:03 Orazinc - PO Not Given BID [facility] Ziprasidone 40 mg 05/04/20 22:19 05/06/20 09:02 Geodon - PO 40 mg BID [facility] Administration 05/05/20 07:00 05/05/20 07:00 64 y/o lady w a hx of IDDM, pancreatitis, copd on 3L O2, htn, hld, schizoaffective disorder, seizures,obesity, sleep apnea (uses cpap at night with 3L [place] O2), breast ca s/p lumpectomy/chemo/radiation [address] Garg and on Anastrozole maintenance who presented to the ER with lower abdominal pain with bloody diarrhea x1 day. States she was Covid-19 positive 1 month ago. Patient stated to the ER team that the night prior to the admission she ate Manicotti with cheese and immediately afterwards became nauseous, started vomiting, and then 1 hour later started experiencing diarrhea. The patient went to sleep and then this morning woke up and her diarrhea became bloo dy. She states that here in the ER she has diffuse abdominal pain in the upper, middle, lower, right and left regions. She feels extremely nauseous and feels like she is going to pass out, but denies actually passing out. She also says she feels very warm and believes she has a fever despite her oral temperature in triage being afebrile. She mentioned her brother ate the same w/o complications. She mentioned that has a new nodule in her R breast and was going to get diagnostic imaging but this could not be obtained due to the COVID-19 pandemic. Recommend: 1) Bilateral Mammogram and Breast US. Has palpable mass in R breast--> If discharged please make an appointment with Dr. Garg as she needs expedited work-up to rule out Breast Cancer Recurrence 2) Vomiting likely due to gastroparesis 3) Supratherapeutic INR. Hold warfarin. Received Vitamin K 4) Will flush her R port-A-cath
[2020-05-06] MEDS: INSULIN (LEVEMIR) 100 UNITS/ML UNITS SQ SCH (21:23)
[2020-05-06] MEDS: ROSUVASTATIN CA 10 MG TABLET (FP) PO SCH (21:25)
[2020-05-06] MEDS: QUEtiapine FUMARATE 200 MG TABLET PO SCH (21:25)
[2020-05-06] MEDS ORDERED: INSULIN (NOVOLOG) ASPART 100 UNITS/ML 10ML VIAL ONE (21:27)
[2020-05-07] MEDS: LACTATED RINGERS SOLUTION 1,000 ML IV SCH ×4 (00:51→21:54)
[2020-05-07] MEDS ORDERED: PT OWN MED DRAWER 7, Y5N ONE ×2 (05:36→21:50)
[2020-05-07] MEDS: INSULIN SLIDING SCALE (NOVOLOG) 1 VIAL SQ SCH ×4 (06:13→22:09)
[2020-05-07] MEDS: busPIRone HCL 5 MG TABLET PO SCH ×3 (06:13→22:04)
[2020-05-07] MEDS: GABAPENTIN 100 MG CAPSULE PO SCH ×3 (06:13→22:03)
[2020-05-07] MEDS: LEVOTHYROXINE NA 200 MCG TABLET PO SCH (06:13)
[2020-05-07] MEDS: METOCLOPRAMIDE HCL 10 MG TABLET (FP) PO SCH ×3 (06:13→16:21)
[2020-05-07 06:52] LABS: INR 3.01 (0.83-1.09); PROTHROMBIN TIME (PATIENT) 35.9 SEC (9.7-13.0)
[2020-05-07] MEDS: ZIPRASIDONE 20 MG CAPSULE PO SCH ×2 (09:07→22:00)
[2020-05-07] MEDS: PANTOPRAZOLE 40 MG TABLET PO SCH (09:11)
[2020-05-07] MEDS: QUINAPRIL HCL 10 MG TABLET (FP) PO SCH (09:12)
[2020-05-07] MEDS: ZINC SULFATE 220 MG CAPSULE (FP) PO SCH ×2 (09:12→22:03)
[2020-05-07] MEDS: ANASTROZOLE 1 MG TABLET PO SCH (09:12)
[2020-05-07] MEDS: ALBUTEROL SO4 HFA INHALER IH PRN ×2 (09:16→16:45)
--- NOTE | 2020-05-07 12:27 | PN ---
Progress Note (short form) - Note Progress Note: CT scan report noted. Pancreatic stent in place. The only bilary tract manipulation was is 2012 when she underwent ERCP. When INR permits and medicall cleared, ideally should have EGD with attempt at removal.
--- NOTE | 2020-05-07 16:16 | PN ---
Progress Note, Physician History of Present Illness: Pt seen/ examined feels better D/W Dr/ Netoo- Small pancreatic stent since 2012 egd planned for removal denies cp/sob - Current Medication List Current Medications: Active Medications Albuterol Sulfate (Ventolin Hfa Inhaler -) 1 puff IH Q4H PRN PRN Reason: SHORT OF BREATH/WHEEZING Last Admin: 05/07/20 09:16 Dose: 1 puff Documented by: Anastrozole (Arimidex -) 1 mg PO DAILY [facility] Last Admin: 05/07/20 09:12 Dose: 1 mg Documented by: Buspirone HCl (Buspar -) 15 mg PO TID [facility] Last Admin: 05/07/20 14:01 Dose: 15 mg Documented by: Gabapentin (Neurontin -) 100 mg PO TID [facility] Last Admin: 05/07/20 14:02 Dose: 100 mg Documented by: Lactated Ringer's (Lactated Ringers Solution) 1,000 mls @ 100 mls/hr IV ASDIR [facility] Last Admin: 05/07/20 16:10 Dose: Not Given Documented by: Insulin Aspart (Novolog Vial Sliding Scale -) 1 vial SQ [facility]; Protocol Last Admin: 05/07/20 11:23 Dose: 3 units Documented by: Insulin Detemir (Levemir Vial) [address] [facility] Last Admin: 05/06/20 21:23 Dose: 10 units Documented by: Levothyroxine Sodium (Synthroid -) 200 mcg PO DAILY@0700 [facility] Last Admin: 05/07/20 06:13 Dose: 200 mcg Documented by: Metoclopramide HCl (Reglan -) 5 mg PO TIDAC [facility] Last Admin: 05/07/20 11:26 Dose: 5 mg Documented by: Ondansetron HCl (Zofran Injection) 8 mg IVPB Q8H PRN PRN Reason: NAUSEA Last Admin: 05/05/20 11:02 Dose: 8 mg Documented by: Pantoprazole Sodium (Protonix -) 40 mg PO DAILY [facility] Last Admin: 05/07/20 09:11 Dose: 40 mg Documented by: Quetiapine Fumarate (Seroquel -) [address] [facility] Last Admin: 05/06/20 21:25 Dose: 800 mg Documented by: Quinapril HCl (Accupril -) 10 mg PO DAILY [facility] Last Admin: 05/07/20 09:12 Dose: 10 mg Documented by: Rosuvastatin Calcium (Crestor -) 10 mg PO HS [facility] Last Admin: 05/06/20 21:25 Dose: 10 mg Documented by: Warfarin Sodium (Coumadin -) 7.5 mg PO DAILY@1800 [facility] Last Admin: 05/05/20 17:57 Dose: 7.5 mg Documented by: Zinc Sulfate (Orazinc -) 220 mg PO BID [facility] Last Admin: 05/07/20 09:12 Dose: Not Given Documented by: Ziprasidone (Geodon -) 40 mg PO BID [facility] Last Admin: 05/07/20 09:07 Dose: 40 mg Documented by: - Objective Vital Signs: Vital Signs Temperature 97.4 F L 05/07/20 13:44 Pulse Rate 85 05/07/20 13:44 Respiratory Rate 05/07/20 13:44 Blood Pressure 157/90 05/07/20 13:44 O2 Sat by Pulse Oximetry (%) 97 05/07/20 09:00 Constitutional: Yes: No Distress, Calm, Obese Eyes: Yes: Conjunctiva Clear Cardiovascular: Yes: Regular Rate and Rhythm Respiratory: Yes: Diminished Gastrointestinal: Yes: Soft, Abdomen, Obese Edema: No Labs: CBC, BMP 05/05/20 07:00 05/05/20 07:00 INR, PTT INR 3.01 (0.83-1.09) H 05/07/20 06:07 Problem List - Problems (1) Nausea and vomiting Code(s): R11.2 - NAUSEA WITH VOMITING, UNSPECIFIED Qualifiers: Vomiting type: unspecified Vomiting Intractability: intractable Qualified Code(s): R11.2 - Nausea with vomiting, unspecified (2) Supratherapeutic INR Code(s): R79.1 - ABNORMAL COAGULATION PROFILE (3) ASHD (arteriosclerotic heart disease) Code(s): I25.10 - ATHSCL HEART DISEASE OF [place] CORONARY ARTERY W/O ANG PCTRS (4) Breast CA Code(s): C50.919 - MALIGNANT NEOPLASM OF UNSP SITE OF UNSPECIFIED FEMALE BREAST (5) COPD (chronic obstructive pulmonary disease) Code(s): J44.9 - CHRONIC OBSTRUCTIVE PULMONARY DISEASE, UNSPECIFIED Qualifiers: (6) Diabetes mellitus type 2, insulin dependent Code(s): E11.9 - TYPE 2 DIABETES MELLITUS WITHOUT COMPLICATIONS; Z79.4 - SNF (CURRENT) USE OF INSULIN (7) History of pulmonary embolism Code(s): Z86.711 - PERSONAL HISTORY OF PULMONARY EMBOLISM (8) Hypothyroidism Code(s): E03.9 - HYPOTHYROIDISM, UNSPECIFIED Qualifiers: (9) Morbid obesity with BMI of 40.0-44.9, adult Code(s): E66.01 - MORBID (SEVERE) OBESITY DUE TO EXCESS CALORIES; Z68.41 - BODY MASS INDEX (BMI) 40.0-44.9, ADULT (10) Obstructive sleep apnea on CPAP Code(s): G47.33 - OBSTRUCTIVE SLEEP APNEA (ADULT) (PEDIATRIC) (11) Schizophrenia Code(s): F20.9 - SCHIZOPHRENIA, UNSPECIFIED Qualifiers: Assessment/Plan Better Continue present care Monitor Lytes Observe off abx Monitor bgm Hold Coumadin-in anticipation of Egd Monitor INR D/W RN also D/W Dr. Del Castillo also- He will see the pt will follow
[2020-05-07] MEDS: WARFARIN NA 7.5 MG TABLET (FP) PO SCH (17:14)
[2020-05-07] MEDS: QUEtiapine FUMARATE 200 MG TABLET PO SCH (22:01)
[2020-05-07] MEDS: ROSUVASTATIN CA 10 MG TABLET (FP) PO SCH (22:03)
[2020-05-07] MEDS: INSULIN (LEVEMIR) 100 UNITS/ML UNITS SQ SCH (22:09)
[2020-05-08] MEDS: GABAPENTIN 100 MG CAPSULE PO SCH ×3 (07:03→22:07)
[2020-05-08] MEDS: METOCLOPRAMIDE HCL 10 MG TABLET (FP) PO SCH ×3 (07:03→16:19)
[2020-05-08] MEDS: busPIRone HCL 5 MG TABLET PO SCH ×3 (07:06→22:07)
[2020-05-08] MEDS: INSULIN SLIDING SCALE (NOVOLOG) 1 VIAL SQ SCH ×4 (07:07→22:05)
[2020-05-08] MEDS: LEVOTHYROXINE NA 200 MCG TABLET PO SCH (07:07)
[2020-05-08] MEDS: ALBUTEROL SO4 HFA INHALER IH PRN ×2 (08:00→14:00)
[2020-05-08] MEDS: ANASTROZOLE 1 MG TABLET PO SCH (09:14)
[2020-05-08] MEDS: PANTOPRAZOLE 40 MG TABLET PO SCH (09:15)
[2020-05-08] MEDS: ZIPRASIDONE 20 MG CAPSULE PO SCH ×2 (09:15→22:05)
[2020-05-08] MEDS: QUINAPRIL HCL 10 MG TABLET (FP) PO SCH (09:16)
[2020-05-08] MEDS: ZINC SULFATE 220 MG CAPSULE (FP) PO SCH ×2 (09:16→22:05)
[2020-05-08] MEDS: LACTATED RINGERS SOLUTION 1,000 ML IV SCH (09:19)
[2020-05-08 11:40] LABS: INR 1.63 (0.83-1.09); PROTHROMBIN TIME (PATIENT) 19.3 SEC (9.7-13.0)
--- NOTE | 2020-05-08 12:31 | PN ---
Progress Note (short form) - Note Progress Note: no distress feels well Vital Signs - 24 hr 05/07/20 05/07/20 05/07/20 13:44 18:00 20:20 Temperature 97.4 F L 97.8 F 97.7 F Pulse Rate 85 74 85 Respiratory 20 20 20 Rate Blood Pressure 157/90 136/75 155/77 O2 Sat by Pulse Oximetry (%) 05/07/20 05/08/20 05/08/20 21:00 04:00 05:43 Temperature 98.8 F 98.5 F Pulse Rate 75 71 Respiratory 20 20 20 Rate Blood Pressure 146/86 142/83 O2 Sat by Pulse 97 Oximetry (%) 05/08/20 05/08/20 09:00 10:46 Temperature 97.4 F L Pulse Rate 85 Respiratory 20 20 Rate Blood Pressure 152/98 O2 Sat by Pulse 97 Oximetry (%) Current Medications Generic Name Dose Route Start Last Admin Trade Name Freq PRN Reason Stop Dose Admin Albuterol Sulfate 1 puff 05/04/20 15:47 05/08/20 08:00 Ventolin Hfa Inhaler - IH 1 puff Q4H PRN Administration SHORT OF BREATH/WHEEZING Anastrozole 1 mg 05/05/20 10:00 05/08/20 09:14 Arimidex - PO 1 mg DAILY ANDREA Administration Buspirone HCl 15 mg 05/04/20 22:00 05/08/20 07:06 Buspar - PO 15 mg TID ANDREA Administration Enoxaparin Sodium 100 mg 05/08/20 22:00 Lovenox - SQ BID ANDREA Gabapentin 100 mg 05/04/20 22:00 05/08/20 07:03 Neurontin - PO 100 mg TID ANDREA Administration Lactated Ringer's 1,000 mls @ 100 mls/hr 05/04/20 16:00 05/08/20 09:19 Lactated Ringers Solution IV 100 mls/hr ASDIR ANDREA Administration Insulin Aspart 1 vial 05/04/20 16:30 05/08/20 11:24 Novolog Vial Sliding Scale - SQ 3 units ACHS ANDREA Administration Protocol Insulin Detemir 10 units 05/04/20 22:00 05/07/20 22:09 Levemir Vial SQ 10 units HS ANDREA Administration Levothyroxine Sodium 200 mcg 05/05/20 07:00 05/08/20 07:07 Synthroid - PO 200 mcg DAILY@0700 ANDREA Administration Metoclopramide HCl 5 mg 05/05/20 18:15 05/08/20 11:23 Reglan - PO 5 mg TIDAC ANDREA Administration Ondansetron HCl 8 mg 05/04/20 15:52 05/05/20 11:02 Zofran Injection IVPB 8 mg Q8H PRN Administration NAUSEA Pantoprazole Sodium 40 mg 05/05/20 18:15 05/08/20 09:15 Protonix - PO 40 mg DAILY ANDREA Administration Quetiapine Fumarate 800 mg 05/04/20 22:00 05/07/20 22:01 Seroquel - PO 800 mg HS ANDREA Administration Quinapril HCl 10 mg 05/05/20 10:00 05/08/20 09:16 Accupril - PO 10 mg DAILY ANDREA Administration Rosuvastatin Calcium 10 mg 05/04/20 22:00 05/07/20 22:03 Crestor - PO 10 mg HS ANDREA Administration Zinc Sulfate 220 mg 05/04/20 22:00 05/08/20 09:16 Orazinc - PO Not Given BID ANDREA Ziprasidone 40 mg 05/04/20 22:19 05/08/20 09:15 Geodon - PO 40 mg BID ANDREA Administration Laboratory Results - last 24 hr 05/07/20 05/07/20 05/08/20 16:19 22:06 07:02 PT with INR INR POC Glucometer 166 169 125 05/08/20 05/08/20 11:18 11:20 PT with INR 19.30 H INR 1.63 H POC Glucometer 151 S1 S2 RRR Lungs clear Abd- soft,NT, obese Trace edema PLAN Holding Coumadin INR - 1.63 start Lovenox therapy continue with meds for EGD second covid swab done today Problem List - Problems (1) Abdominal pain Code(s): R10.9 - UNSPECIFIED ABDOMINAL PAIN Qualifiers: Abdominal location: generalized Qualified Code(s): R10.84 - Generalized abdominal pain (2) Nausea and vomiting Code(s): R11.2 - NAUSEA WITH VOMITING, UNSPECIFIED Qualifiers: Vomiting type: unspecified Vomiting Intractability: intractable Qualified Code(s): R11.2 - Nausea with vomiting, unspecified (3) ASHD (arteriosclerotic heart disease) Code(s): I25.10 - ATHSCL HEART DISEASE OF [place] CORONARY ARTERY W/O ANG PCTRS (4) COPD (chronic obstructive pulmonary disease) Code(s): J44.9 - CHRONIC OBSTRUCTIVE PULMONARY DISEASE, UNSPECIFIED Qualifiers:
--- NOTE | 2020-05-08 16:33 | CON.PULM ---
Consult Consult Specialty:: PULM/CCM Referred by:: CHRISSY Reason for Consultation:: SOB - History of Present Illness Chief Complaint: Abdominal pain History of Present Illness: 64 F, well known to me. O2 dependent COPD (3 L NC) due to previous smoking, PE, and Severe OSAS (05/2017: RDI 87.8 events per hour, oxygen desaturation to 78% ; significant response to PAP @ 11 cm H2O {RDI Only 0.4}). Additional history of IDDM, pancreatitis, HTN, HPL, schizoaffective disorder, seizures, Morbid obesity, and breast CA s/p lumpectomy/chemo/radiation. Admitted via the ER due to lower abdominal pain with bloody diarrhea x1 day. She was treated for COVID19 here in February. At present, no overt SOB, SHAW, cough, hemoptysis, etc. 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 Cardio/Vascular: Yes: HTN, Hyperlipdemia Pulmonary: Yes: COPD, Sleep Apnea, O2 Dependent Gastrointestinal: Yes: Constipation, Pancreatitis Hepatobiliary: Yes: Cholelithiasis Renal/: Yes: Renal Calculi, Other (urge incontinence, enuresis) ...: No Psych: Yes: Anxiety, Bipolar (schizoaffective bipolar) Musculoskeletal: Yes: Osteoarthritis Endocrine: Yes: Diabetes Mellitus, Hypothyroidism Additional Medical History: morbid obesity - Past Surgical History Past Surgical History: Yes: Joint Replacement, Breast Biopsy, Cholecystectomy - Alcohol/Substance Use Hx Alcohol Use: No History of Substance Use: reports: None - Smoking History Smoking history: Never smoked Have you smoked in the past 12 months: No Aproximately how many cigarettes per day: 20 If you are a former smoker, when did you quit?: Three years ago - Social History ADL: Independent (walks with cane) Home Medications - Allergies Allergies/Adverse Reactions: Allergies Allergy/AdvReac Type Severity Reaction Status Date / Time acetaminophen [From Tylenol] Allergy "VOMITS" Verified 03/29/20 13:18 almond oil Allergy "ITCHY" Verified 03/29/20 13:18 citalopram hydrobromide Allergy "STROKE Verified 03/29/20 13:18 [From Celexa] LIKE SYMPTOMS" divalproex sodium Allergy "PANCREATIT Verified 03/29/20 13:18 [From Depakote] IS" Iodinated Contrast Media Allergy Verified 03/29/20 13:18 [Iodinated Contrast Media - IV Dye] lamotrigine [From Lamictal] Allergy "FACE Verified 03/29/20 13:18 SWELLS" lithium [[place]] Allergy "SEIZURES,SWOLLEN Verified 03/29/20 13:18 ARMS/LEGS" meperidine HCl [From Demerol] Allergy "TURNS RED Verified 03/29/20 13:18 WHEN MIXED WITH NOVACAINE" shellfish derived Allergy "TURNED Verified 03/29/20 13:18 RED /ITCHY" sulfamethoxazole Allergy "COLLAPSED, Verified 03/29/20 13:18 [From Bactrim] HEART ISSUE" topiramate [From Topamax] Allergy TO Verified 03/29/20 13:18 POISONOUS LEVELS" trimethoprim [From Bactrim] Allergy "COLLAPSED,HEART Verified 03/29/20 13:18 ISSUE" - Home Medications Home Medications: Ambulatory Orders Buspirone HCl [Buspar] 15 mg PO TID 03/20/14 Anastrozole [Arimidex -] 1 mg PO DAILY #0 12/06/16 Gabapentin [Neurontin -] 100 mg PO Q8H #0 12/06/16 Insulin (Novolog) [Novolog Flexpen -] 0 units SQ ASDIR #0 12/06/16 Quetiapine Fumarate [Seroquel -] 800 mg PO HS #0 12/06/16 Quinapril HCl [Accupril -] 10 mg PO DAILY #0 12/06/16 Albuterol 0.083% Nebulizer Blaire [Ventolin 0.083% Nebulizer Soln -] 1 amp NEB Q4H PRN amp 09/28/17 Albuterol 0.083% Nebulizer Blaire [Ventolin 0.083% Nebulizer Soln -] 1 amp NEB Q4H PRN amp 08/26/19 Insulin Sliding Scale [Novolog Vial Sliding Scale -] 1 vial SQ TIDAC units 08/26/19 Levothyroxine [Synthroid -] 200 mcg PO DAILY@0700 tablet 08/26/19 Buspirone HCl 15 mg PO TID 03/04/20 Lorazepam [Ativan] 1 mg PO HS PRN 03/05/20 Rosuvastatin Calcium [Crestor] 10 mg PO DAILY 03/05/20 Ziprasidone [Geodon -] 40 mg PO BID 03/05/20 Ascorbic Acid [Vitamin C] 2,000 mg PO BID #60 tablet 03/08/20 Zinc Sulfate [Orazinc -] 220 mg PO BID #30 capsule 03/08/20 Insulin (Levemir) [Levemir Vial] 10 units SQ BID@0700,2200 05/07/20 Warfarin Na [Coumadin -] 8 tab PO DAILY 05/07/20 Review of Systems - Review of Systems Constitutional: denies: Chills, Fever, Unintentional Wgt. Loss Eyes: reports: No Symptoms HENT: reports: No Symptoms Neck: reports: No Symptoms Cardiovascular: denies: Chest Pain, Edema, Palpitations, Shortness of Breath Respiratory: reports: Snoring. denies: Cough, Orthopnea, PND, SOB, SOB on Exertion, Wheezing Gastrointestinal: reports: Abdominal Pain, Diarrhea, Rectal Bleeding Genitourinary: reports: No Symptoms Breasts: reports: No Symptoms Reported Musculoskeletal: reports: Back Pain Integumentary: reports: No Symptoms Neurological: reports: No Symptoms Endocrine: reports: No Symptoms Hematology/Lymphatic: reports: No Symptoms Psychiatric: reports: No Symptoms Physical Exam Vital Sings: Vital Signs Temperature 98 F 05/08/20 14:54 Pulse Rate 71 05/08/20 14:54 Respiratory Rate 20 05/08/20 14:54 Blood Pressure 156/84 05/08/20 14:54 O2 Sat by Pulse Oximetry (%) 97 05/08/20 09:00 Constitutional: Yes: No Distress Eyes: Yes: Conjunctiva Clear, EOM Intact, Cataracts HENT: Yes: Atraumatic, Normocephalic Neck: Yes: Supple, Trachea Midline Cardiovascular: Yes: Regular Rate and Rhythm Respiratory: Yes: Diminished, Dullness, On Nasal O2. No: Accessory Muscle Use, Rales, Rhonchi, SOB, SOB on Exertion, Stridor, Tachypnea, Wheezes ...Inspection: Yes: WNL ...Clubbing: No Gastrointestinal: Yes: Normal Bowel Sounds, Soft, Abdomen, Obese Renal/: Yes: WNL Musculoskeletal: Yes: WNL Extremities: Yes: WNL Edema: No Peripheral Pulses WNL: Yes Integumentary: Yes: WNL Neurological: Yes: WNL, Alert, Oriented ...Motor Strength: WNL Psychiatric: Yes: WNL, Alert, Oriented Labs: CBC, BMP 05/05/20 07:00 05/05/20 07:00 Imaging - Results Chest X-ray: Report Reviewed, Image Reviewed Problem List - Problems (1) Abdominal pain Code(s): R10.9 - UNSPECIFIED ABDOMINAL PAIN Qualifiers: Abdominal location: generalized Qualified Code(s): R10.84 - Generalized abdominal pain (2) Nausea and vomiting Code(s): R11.2 - NAUSEA WITH VOMITING, UNSPECIFIED Qualifiers: Vomiting type: unspecified Vomiting Intractability: intractable Qualified Code(s): R11.2 - Nausea with vomiting, unspecified (3) Rectal bleeding Code(s): K62.5 - HEMORRHAGE OF ANUS AND RECTUM (4) ASHD (arteriosclerotic heart disease) Code(s): I25.10 - ATHSCL HEART DISEASE OF [place] CORONARY ARTERY W/O ANG PCTRS (5) Breast CA Code(s): C50.919 - MALIGNANT NEOPLASM OF UNSP SITE OF UNSPECIFIED FEMALE BREAST (6) COPD (chronic obstructive pulmonary disease) Code(s): J44.9 - CHRONIC OBSTRUCTIVE PULMONARY DISEASE, UNSPECIFIED Qualifiers: (7) COVID-19 virus infection Code(s): U07.1 - COVID POSITIVE (8) Chronic hypoxemic respiratory failure Code(s): J96.11 - CHRONIC RESPIRATORY FAILURE WITH HYPOXIA (9) Diabetes mellitus type 2, insulin dependent Code(s): E11.9 - TYPE 2 DIABETES MELLITUS WITHOUT COMPLICATIONS; Z79.4 - LONG TE RM (CURRENT) USE OF INSULIN (10) History of pulmonary embolus (PE) Code(s): Z86.711 - PERSONAL HISTORY OF PULMONARY EMBOLISM (11) Hyperlipidemia Code(s): E78.5 - HYPERLIPIDEMIA, UNSPECIFIED Qualifiers: Hyperlipidemia type: pure hypercholesterolemia Qualified Code(s): E78.00 - Pure hypercholesterolemia, unspecified; E78.0 - Pure hypercholesterolemia (12) Hypertension Code(s): I10 - ESSENTIAL (PRIMARY) HYPERTENSION Qualifiers: Hypertension type: essential hypertension Qualified Code(s): I10 - Essential (primary) hypertension (13) Hypothyroidism Code(s): E03.9 - HYPOTHYROIDISM, UNSPECIFIED Qualifiers: (14) IDDM (insulin dependent diabetes mellitus) Code(s): IRC2488 - (15) Morbid obesity with BMI of 40.0-44.9, adult Code(s): E66.01 - MORBID (SEVERE) OBESITY DUE TO EXCESS CALORIES; Z68.41 - BODY MASS INDEX (BMI) 40.0-44.9, ADULT (16) Obstructive sleep apnea on CPAP Code(s): G47.33 - OBSTRUCTIVE SLEEP APNEA (ADULT) (PEDIATRIC) (17) Schizoaffective disorder, bipolar type Code(s): F25.0 - SCHIZOAFFECTIVE DISORDER, BIPOLAR TYPE (18) Status post repair of ventral hernia Code(s): Z98.890 - OTHER SPECIFIED POSTPROCEDURAL STATES; Z87.19 - PERSONAL HISTORY OF OTHER DISEASES OF THE DIGESTIVE SYSTEM Assessment/Plan PAP therapy ordered Although Meenu is at increased Pulmonary risk for decompensation, the benefit of intervention outweighs the risk at this point. There is no Pulmonary contraindication for anesthesia or intervention. Will evaluate for post- procedure need for monitored setting. No smoking was counseled No indication for systemic steroids at this time. VTE prophylaxis Full AC BD [place] PRN Will follow Thank you. Dr Hemphill
--- NOTE | 2020-05-08 17:05 | PN.HO ---
Progress Note (short form) - Note Progress Note: S: Doing well O: Last Vital Signs Temp Pulse Resp BP Pulse Ox 98 F 71 20 156/84 97 05/08/20 14:54 05/08/20 14:54 05/08/20 14:54 05/08/20 14:54 05/08/20 09:00 Current Medications Generic Name Dose Route Start Last Admin Trade Name Freq PRN Reason Stop Dose Admin Albuterol Sulfate 1 puff 05/04/20 15:47 05/08/20 14:00 Ventolin Hfa Inhaler - IH 1 puff Q4H PRN Administration SHORT OF BREATH/WHEEZING Anastrozole 1 mg 05/05/20 10:00 05/08/20 09:14 Arimidex - PO 1 mg DAILY ANDREA Administration Buspirone HCl 15 mg 05/04/20 22:00 05/08/20 14:23 Buspar - PO 15 mg TID ANDREA Administration Enoxaparin Sodium 120 mg/ 160 mg 05/08/20 22:00 Enoxaparin Sodium 40 mg SQ BID ANDREA Gabapentin 100 mg 05/04/20 22:00 05/08/20 14:23 Neurontin - PO 100 mg TID ANDREA Administration Insulin Aspart 1 vial 05/04/20 16:30 05/08/20 16:20 Novolog Vial Sliding Scale - SQ Not Given [facility] Protocol Insulin Detemir 10 units 05/04/20 22:00 05/07/20 22:09 Levemir Vial SQ 10 units HS ANDREA Administration Levothyroxine Sodium 200 mcg 05/05/20 07:00 05/08/20 07:07 Synthroid - PO 200 mcg DAILY@0700 ANDREA Administration Metoclopramide HCl 5 mg 05/05/20 18:15 05/08/20 16:19 Reglan - PO 5 mg TIDAC ANDREA Administration Ondansetron HCl 8 mg 05/04/20 15:52 05/05/20 11:02 Zofran Injection IVPB 8 mg Q8H PRN Administration NAUSEA Pantoprazole Sodium 40 mg 05/05/20 18:15 05/08/20 09:15 Protonix - PO 40 mg DAILY ANDREA Administration Quetiapine Fumarate 800 mg 05/04/20 22:00 05/07/20 22:01 Seroquel - PO 800 mg HS ANDREA Administration Quinapril HCl 10 mg 05/05/20 10:00 05/08/20 09:16 Accupril - PO 10 mg DAILY ANDREA Administration Rosuvastatin Calcium 10 mg 05/04/20 22:00 05/07/20 22:03 Crestor - PO 10 mg HS ANDREA Administration Zinc Sulfate 220 mg 05/04/20 22:00 05/08/20 09:16 Orazinc - PO Not Given BID ANDREA Ziprasidone 40 mg 05/04/20 22:19 05/08/20 09:15 Geodon - PO 40 mg BID ANDREA Administration 05/05/20 07:00 05/05/20 07:00 64 y/o lady w a hx of IDDM, pancreatitis, copd on 3L O2, htn, hld, schizoaffective disorder, seizures,obesity, sleep apnea (uses cpap at night with 3L NC O2), breast ca s/p lumpectomy/chemo/radiation [address] Garg and on Anastrozole maintenance who presented to the ER with lower abdominal pain with bloody diarrhea x1 day. States she was Covid-19 positive 1 month ago. Patient stated to the ER team that the night prior to the admission s he ate Manicotti with cheese and immediately afterwards became nauseous, started vomiting, and then 1 hour later started experiencing diarrhea. The patient went to sleep and then this morning woke up and her diarrhea became bloody. She states that here in the ER she has diffuse abdominal pain in the upper, middle, lower, right and left regions. She feels extremely nauseous and feels like she is going to pass out, but denies actually passing out. She also says she feels very warm and believes she has a fever despite her oral temperature in triage being afebrile. She mentioned her brother ate the same w/o complications. She mentioned that has a new nodule in her R breast and was going to get diagnostic imaging but this could not be obtained due to the COVID-19 pandemic. Recommend: 1) Bilateral Mammogram and Breast US. Has palpable mass in R breast--> Please call Dr. Garg's office before d/c she has an appointment in early May. Please confirm at the time of discharge 2) Vomiting likely due to gastroparesis 3) Supratherapeutic INR. Hold warfarin. Received Vitamin K
--- NOTE | 2020-05-08 18:26 | PN ---
Progress Note (short form) - Note Progress Note: INR down to 1.[address] Hemphill's preprocedural input. Discussed plan for EGD with Caitlin Adams +/- passga eof duodenoscope if needed for pancreatic stent extraction. Discussed potential risks of the procedure like but not limited to bleeding, perforation requiring surgery to repair, infection, sedation medication effects all of which could be potentially life threatening. She has agreed to the procedure. Consent obtained. NPO after midnight except meds AM labs ordered
[2020-05-08] MEDS ORDERED: ENOXAPARIN NA (PORCINE) 100 MG/1 ML DISP.SYRIN SQ SCH ×2 (22:00)
[2020-05-08] MEDS: QUEtiapine FUMARATE 200 MG TABLET PO SCH (22:05)
[2020-05-08] MEDS: INSULIN (LEVEMIR) 100 UNITS/ML UNITS SQ SCH (22:06)
[2020-05-08] MEDS: ENOXAPARIN SQ SCH (22:06)
[2020-05-08] MEDS: ROSUVASTATIN CA 10 MG TABLET (FP) PO SCH (22:07)
[2020-05-09] MEDS: INSULIN SLIDING SCALE (NOVOLOG) 1 VIAL SQ SCH ×4 (06:23→21:24)
[2020-05-09] MEDS: METOCLOPRAMIDE HCL 10 MG TABLET (FP) PO SCH ×3 (06:24→17:21)
[2020-05-09] MEDS: GABAPENTIN 100 MG CAPSULE PO SCH ×3 (06:25→21:18)
[2020-05-09] MEDS: LEVOTHYROXINE NA 200 MCG TABLET PO SCH (06:26)
[2020-05-09] MEDS: BUSPIRONE HCL 10 MG, BUSPIRONE HCL 5 MG PO SCH ×3 (06:26→21:12)
[2020-05-09 07:23] LABS: BASO % 0.2 % (0-2.0); EOS % 4.3 % (0-4.5); HEMATOCRIT 34.2 % (32.4-45.2); HEMOGLOBIN 11.2 GM/dL (10.7-15.3); LYMPH % 28.2 % (8-40); MCH 28.3 pg (25.7-33.7); MCHC 32.8 g/dl (32.0-36.0); MEAN CELL VOLUME 86.2 fl (80-96); MEAN PLT VOLUME 8.5 fl (7.5-11.1); MONO % 8.7 % (3.8-10.2); NEUT % 58.6 % (42.8-82.8); PLATELET COUNT 198 K/MM3 (134-434); RBC 3.96 M/mm3 (3.60-5.2); RDW 15.8 % (11.6-15.6); WHITE BLOOD COUNT 7.3 K/mm3 (4.0-10.0)
[2020-05-09 07:39] LABS: ALBUMIN 3.2 g/dl (3.4-5.0); BILIRUBIN,TOTAL 0.6 mg/dL (0.2-1); BLOOD UREA NITROGEN 17.6 mg/dL (7-18); CALCIUM 9.2 mg/dL (8.5-10.1); CREATININE 1.3 mg/dL (0.55-1.3); POTASSIUM 3.9 mmol/L (3.5-5.1); TOT PROT 6.8 g/dl (6.4-8.2)
[2020-05-09 07:45] LABS: INR 1.26 (0.83-1.09); PROTHROMBIN TIME (PATIENT) 14.9 SEC (9.7-13.0)
[2020-05-09] MEDS: PANTOPRAZOLE 40 MG TABLET PO SCH (09:41)
[2020-05-09] MEDS: QUINAPRIL HCL 10 MG TABLET (FP) PO SCH (09:41)
[2020-05-09] MEDS: ANASTROZOLE 1 MG TABLET PO SCH (09:41)
[2020-05-09] MEDS: ZIPRASIDONE 40 MG CAPSULE PO SCH ×2 (09:42→21:13)
[2020-05-09] MEDS: ENOXAPARIN SQ SCH ×2 (09:42→21:14)
[2020-05-09] MEDS: ZINC SULFATE 220 MG CAPSULE (FP) PO SCH ×2 (09:43→21:14)
--- NOTE | 2020-05-09 10:43 | PN ---
Progress Note (short form) - Note Progress Note: Feels well except for lower abdominal discomfort. No CP or SOB. For endoscopy. Intake & Output 05/06/20 05/07/20 05/08/20 05/09/20 23:59 23:59 23:59 23:59 Intake Total 1100 2800 2350 30 Balance 1100 2800 2350 30 Weight 164 lb 364 lb 1 oz Last Vital Signs Temp Pulse Resp BP Pulse Ox 98.1 F 70 20 140/71 98 05/09/20 05:50 05/09/20 05:50 05/09/20 05:50 05/09/20 05:50 05/08/20 21:00 Active Medications Albuterol Sulfate (Ventolin Hfa Inhaler -) 1 puff IH Q4H PRN PRN Reason: SHORT OF BREATH/WHEEZING Last Admin: 05/08/20 14:00 Dose: 1 puff Documented by: Anastrozole (Arimidex -) 1 mg PO DAILY [facility] Last Admin: 05/09/20 09:41 Dose: 1 mg Documented by: Buspirone HCl 10 mg/ Buspirone (HCl 5 mg) 15 mg PO TID [facility] Last Admin: 05/09/20 06:26 Dose: 15 mg Documented by: Enoxaparin Sodium 120 mg/ (Enoxaparin Sodium 40 mg) 160 mg SQ BID [facility] Last Admin: 05/09/20 09:42 Dose: Not Given Documented by: Gabapentin (Neurontin -) 100 mg PO TID [facility] Last Admin: 05/09/20 06:25 Dose: 100 mg Documented by: Insulin Aspart (Novolog Vial Sliding Scale -) 1 vial SQ [facility]; Protocol Last Admin: 05/09/20 06:23 Dose: Not Given Documented by: Insulin Detemir (Levemir Vial) 10 units SQ [facility] Last Admin: 05/08/20 22:06 Dose: 10 units Documented by: Levothyroxine Sodium (Synthroid -) 200 mcg PO DAILY@0700 [facility] Last Admin: 05/09/20 06:26 Dose: 200 mcg Documented by: Metoclopramide HCl (Reglan -) 5 mg PO TIDAC [facility] Last Admin: 05/09/20 06:24 Dose: 5 mg Documented by: Ondansetron HCl (Zofran Injection) 8 mg IVPB Q8H PRN PRN Reason: NAUSEA Last Admin: 05/05/20 11:02 Dose: 8 mg Documented by: Pantoprazole Sodium (Protonix -) 40 mg PO DAILY [facility] Last Admin: 05/09/20 09:41 Dose: 40 mg Documented by: Quetiapine Fumarate (Seroquel -) 800 mg PO [facility] Last Admin: 05/08/20 22:05 Dose: 800 mg Documented by: Quinapril HCl (Accupril -) 10 mg PO DAILY [facility] Last Admin: 05/09/20 09:41 Dose: 10 mg Documented by: Rosuvastatin Calcium (Crestor -) 10 mg PO [facility] Last Admin: 05/08/20 22:07 Dose: 10 mg Documented by: Zinc Sulfate (Orazinc -) 220 mg PO BID [facility] Last Admin: 05/09/20 09:43 Dose: Not Given Documented by: Ziprasidone (Geodon -) 40 mg PO BID [facility] Last Admin: 05/09/20 09:42 Dose: 40 mg Documented by: Constitutional: Yes: No Distress Eyes: Yes: Conjunctiva Clear, EOM Intact, Cataracts HENT: Yes: Atraumatic, Normocephalic Neck: Yes: Supple, Trachea Midline Cardiovascular: Yes: Regular Rate and Rhythm Respiratory: Yes: Diminished, Dullness, On Nasal O2. No: Accessory Muscle Use, Rales, Rhonchi, SOB, SOB on Exertion, Stridor, Tachypnea, Wheezes ...Inspection: Yes: WNL ...Clubbing: No Gastrointestinal: Yes: Normal Bowel Sounds, Soft, Abdomen, Obese Renal/: Yes: WNL Musculoskeletal: Yes: WNL Extremities: Yes: WNL Edema: No Peripheral Pulses WNL: Yes Integumentary: Yes: WNL Neurological: Yes: WNL, Alert, Oriented ...Motor Strength: WNL Psychiatric: Yes: WNL, Alert, Oriented Labs: Laboratory Results - last 24 hr 05/08/20 05/08/20 05/08/20 11:18 11:20 12:20 WBC RBC Hgb Hct MCV MCH MCHC RDW Plt Count MPV Absolute Neuts (auto) Neutrophils % Lymphocytes % Monocytes % Eosinophils % Basophils % Nucleated RBC % PT with INR 19.30 H INR 1.63 H Sodium Potassium Chloride Carbon Dioxide Anion Gap BUN Creatinine Est GFR (CKD-EPI)AfAm Est GFR (CKD-EPI)NonAf POC Glucometer 151 Random Glucose Calcium Total Bilirubin AST ALT Alkaline Phosphatase Total Protein Albumin COVID-19 ([facility]) Not detected 05/08/20 05/08/20 05/09/20 16:16 21:46 05:53 WBC RBC Hgb Hct MCV MCH MCHC RDW Plt Count MPV Absolute Neuts (auto) Neutrophils % Lymphocytes % Monocytes % Eosinophils % Basophils % Nucleated RBC % PT with INR INR Sodium Potassium Chloride Carbon Dioxide Anion Gap BUN Creatinine Est GFR (CKD-EPI)AfAm Est GFR (CKD-EPI)NonAf POC Glucometer 150 208 143 Random Glucose Calcium Total Bilirubin AST ALT Alkaline Phosphatase Total Protein Albumin COVID-19 ([facility]) 05/09/20 05/09/20 05/09/20 06:45 06:45 06:45 WBC 7.3 RBC 3.96 Hgb 11.2 Hct 34.2 MCV 86.2 MCH 28.3 MCHC 32.8 RDW 15.8 H Plt Count 198 MPV 8.5 Absolute Neuts (auto) 4.3 Neutrophils % 58.6 Lymphocytes % 28.2 D Monocytes % 8.7 Eosinophils % 4.3 D Basophils % 0.2 Nucleated RBC % 0 PT with INR 14.90 H INR 1.26 H Sodium 144 Potassium 3.9 Chloride 109 H Carbon Dioxide 24 Anion Gap 11 BUN 17.6 Creatinine 1.3 Est GFR (CKD-EPI)AfAm 50.56 Est GFR (CKD-EPI)NonAf 43.62 POC Glucometer Random Glucose 145 H Calcium 9.2 Total Bilirubin 0.6 AST 10 L ALT 19 Alkaline Phosphatase 99 Total Protein 6.8 Albumin 3.2 L COVID-19 ([facility]) Imaging - Results Chest X-ray: Report Reviewed, Image Reviewed Problem List - Problems (1) Abdominal pain Code(s): R10.9 - UNSPECIFIED ABDOMINAL PAIN Qualifiers: Abdominal location: generalized Qualified Code(s): R10.84 - Generalized abdominal pain (2) Nausea and vomiting Code(s): R11.2 - NAUSEA WITH VOMITING, UNSPECIFIED Qualifiers: Vomiting type: unspecified Vomiting Intractability: intractable Qualified Code(s): R11.2 - Nausea with vomiting, unspecified (3) Rectal bleeding Code(s): K62.5 - HEMORRHAGE OF ANUS AND RECTUM (4) ASHD (arteriosclerotic heart disease) Code(s): I25.10 - ATHSCL HEART DISEASE OF [place] CORONARY ARTERY W/O ANG PCTRS (5) Breast CA Code(s): C50.919 - MALIGNANT NEOPLASM OF UNSP SITE OF UNSPECIFIED FEMALE BREAST (6) COPD (chronic obstructive pulmonary disease) Code(s): J44.9 - CHRONIC OBSTRUCTIVE PULMONARY DISEASE, UNSPECIFIED Qualifiers: (7) COVID-19 virus infection Code(s): U07.1 - COVID POSITIVE (8) Chronic hypoxemic respiratory failure Code(s): J96.11 - CHRONIC RESPIRATORY FAILURE WITH HYPOXIA (9) Diabetes mellitus type 2, insulin dependent Code(s): E11.9 - TYPE 2 DIABETES MELLITUS WITHOUT COMPLICATIONS; Z79.4 - DIRECTOR FINANCIAL PLANNING (CURRENT) USE OF INSULIN (10) History of pulmonary embolus (PE) Code(s): Z86.711 - PERSONAL HISTORY OF PULMONARY EMBOLISM (11) Hyperlipidemia Code(s): E78.5 - HYPERLIPIDEMIA, UNSPECIFIED Qualifiers: Hyperlipidemia type: pure hypercholesterolemia Qualified Code(s): E78.00 - Pure hypercholesterolemia, unspecified; E78.0 - Pure hypercholesterolemia (12) Hypertension Code(s): I10 - ESSENTIAL (PRIMARY) HYPERTENSION Qualifiers: Hypertension type: essential hypertension Qualified Code(s): I10 - Essential (primary) hypertension (13) Hypothyroidism Code(s): E03.9 - HYPOTHYROIDISM, UNSPECIFIED Qualifiers: (14) IDDM (insulin dependent diabetes mellitus) Code(s): [id number] - (15) Morbid obesity with BMI of 40.0-44.9, adult Code(s): E66.01 - MORBID (SEVERE) OBESITY DUE TO EXCESS CALORIES; Z68.41 - BODY MASS INDEX (BMI) 40.0-44.9, ADULT (16) Obstructive sleep apnea on CPAP Code(s): G47.33 - OBSTRUCTIVE SLEEP APNEA (ADULT) (PEDIATRIC) (17) Schizoaffective disorder, bipolar type Code(s): F25.0 - SCHIZOAFFECTIVE DISORDER, BIPOLAR TYPE (18) Status post repair of ventral hernia Code(s): Z98.890 - OTHER SPECIFIED POSTPROCEDURAL STATES; Z87.19 - PERSONAL HISTORY OF OTHER DISEASES OF THE DIGESTIVE SYSTEM Assessment/Plan PAP therapy QHS and PRN Although Meenu is at increased Pulmonary risk for decompensation, the benefit of intervention outweighs the risk at this point. There is no Pulmonary contraindication for anesthesia or intervention. Will evaluate for post- procedure need for monitored setting. No indication for systemic steroids at this time. VTE prophylaxis Full AC when cleared after GI Procedures BD [place] PRN Dr Hemphill Problem List - Problems (1) Abdominal pain Code(s): R10.9 - UNSPECIFIED ABDOMINAL PAIN Qualifiers: Abdominal location: generalized Qualified Code(s): R10.84 - Generalized abdominal pain (2) Nausea and vomiting Code(s): R11.2 - NAUSEA WITH VOMITING, UNSPECIFIED Qualifiers: Vomiting type: unspecified Vomiting Intractability: intractable Qualified Code(s): R11.2 - Nausea with vomiting, unspecified (3) Rectal bleeding Code(s): K62.5 - HEMORRHAGE OF ANUS AND RECTUM (4) ASHD (arteriosclerotic heart disease) Code(s): I25.10 - ATHSCL HEART DISEASE OF [place] CORONARY ARTERY W/O ANG PCTRS (5) Breast CA Code(s): C50.919 - MALIGNANT NEOPLASM OF UNSP SITE OF UNSPECIFIED FEMALE BREAST (6) COPD (chronic obstructive pulmonary disease) Code(s): J44.9 - CHRONIC OBSTRUCTIVE PULMONARY DISEASE, UNSPECIFIED Qualifiers: (7) COVID-19 virus infection Code(s): U07.1 - COVID POSITIVE (8) Chronic hypoxemic respiratory failure Code(s): J96.11 - CHRONIC RESPIRATORY FAILURE WITH HYPOXIA (9) Diabetes mellitus type 2, insulin dependent Code(s): E11.9 - TYPE 2 DIABETES MELLITUS WITHOUT COMPLICATIONS; Z79.4 - DIRECTOR FINANCIAL PLANNING (CURRENT) USE OF INSULIN (10) History of pulmonary embolus (PE) Code(s): Z86.711 - PERSONAL HISTORY OF PULMONARY EMBOLISM (11) Hyperlipidemia Code(s): E78.5 - HYPERLIPIDEMIA, UNSPECIFIED Qualifiers: Hyperlipidemia type: pure hypercholesterolemia Qualified Code(s): E78.00 - Pure hypercholesterolemia, unspecified; E78.0 - Pure hypercholesterolemia (12) Hypertension Code(s): I10 - ESSENTIAL (PRIMARY) HYPERTENSION Qualifiers: Hypertension type: essential hypertension Qualified Code(s): I10 - Essential (primary) hypertension (13) Hypothyroidism Code(s): E03.9 - HYPOTHYROIDISM, UNSPECIFIED Qualifiers: (14) IDDM (insulin dependent diabetes mellitus) Code(s): [id number] - (15) Morbid obesity with BMI of 40.0-44.9, adult Code(s): E66.01 - MORBID (SEVERE) OBESITY DUE TO EXCESS CALORIES; Z68.41 - BODY MASS INDEX (BMI) 40.0-44.9, ADULT (16) Obstructive sleep apnea on CPAP Code(s): G47.33 - OBSTRUCTIVE SLEEP APNEA (ADULT) (PEDIATRIC) (17) Schizoaffective disorder, bipolar type Code(s): F25.0 - SCHIZOAFFECTIVE DISORDER, BIPOLAR TYPE (18) Status post repair of ventral hernia Code(s): Z98.890 - OTHER SPECIFIED POSTPROCEDURAL STATES; Z87.19 - PERSONAL HIST ORY OF OTHER DISEASES OF THE DIGESTIVE SYSTEM
[2020-05-09] MEDS ORDERED: fentaNYL CITRATE 250 MCG/5 ML VIAL ONE (11:06)
--- NOTE | 2020-05-09 11:09 | PN ---
Progress Note (short form) - Note Progress Note: GI Preprocedure NOte: I reiterated the risks of EGD and stent removal with Meenu. I explained that given her sleep apnea and COPD that this procedure will require intubation. Together with Dr Miramontes we discussed the potential difficulties with extubation. She explained that she understands and wants to proceed. She believes that he stent is causing epigastric pain. I already discussed the case with Dr Crowe earlier and we mutually agree that the stent should be removed. It had originaly been placed to protect against ERCP induced pancreatitis following CBD stone extraction.
--- NOTE | 2020-05-09 11:53 | PN ---
Progress Note (short form) - Note Progress Note: GI Procedure Note: Please see EGD report. The pancreatic stent was removed using a rat tooth forceps. EGD revealed acid reflux across a sliding hiatal hernia and a prepyloric erosion. The procedure was well tolerated. Can resume warfarin but continue pantoprazole for healing of erosive gastritis and for her reflux.
--- NOTE | 2020-05-09 12:12 | PN ---
Progress Note (short form) - Note Progress Note: no distress feels well EGD report reviewed, GI eval appreciated Vital Signs - 24 hr 05/08/20 05/08/20 05/08/20 14:54 18:38 21:00 Temperature 98 F 97.8 F Pulse Rate 71 76 Respiratory 20 20 20 Rate Blood Pressure 156/84 154/94 O2 Sat by Pulse 98 Oximetry (%) 05/09/20 05/09/20 05/09/20 05:50 09:00 11:38 Temperature 98.1 F 98.1 F 98.0 F Pulse Rate 70 82 60 Respiratory 20 20 20 Rate Blood Pressure 140/71 148/97 105/103 H O2 Sat by Pulse 100 Oximetry (%) 05/09/20 05/09/20 11:53 12:08 Temperature Pulse Rate 73 71 Respiratory 12 15 Rate Blood Pressure 104/62 135/73 O2 Sat by Pulse 100 100 Oximetry (%) Current Medications Generic Name Dose Route Start Last Admin Trade Name Freq PRN Reason Stop Dose Admin Albuterol Sulfate 1 puff 05/04/20 15:47 05/08/20 14:00 Ventolin Hfa Inhaler - IH 1 puff Q4H PRN Administration SHORT OF BREATH/WHEEZING Anastrozole 1 mg 05/05/20 10:00 05/09/20 09:41 Arimidex - PO 1 mg DAILY ANDREA Administration Buspirone HCl 10 mg/ Buspirone 15 mg 05/09/20 06:00 05/09/20 06:26 HCl 5 mg PO 15 mg TID ANDREA Administration Enoxaparin Sodium 120 mg/ 160 mg 05/08/20 22:00 05/09/20 09:42 Enoxaparin Sodium 40 mg SQ Not Given BID ANDREA Gabapentin 100 mg 05/04/20 22:00 05/09/20 06:25 Neurontin - PO 100 mg TID ANDREA Administration Insulin Aspart 1 vial 05/04/20 16:30 05/09/20 11:14 Novolog Vial Sliding Scale - SQ Not Given ACHS [facility] Protocol Insulin Detemir 10 units 05/04/20 22:00 05/08/20 22:06 Levemir Vial SQ 10 units HS ANDREA Administration Levothyroxine Sodium 200 mcg 05/05/20 07:00 05/09/20 06:26 Synthroid - PO 200 mcg DAILY@0700 ANDREA Administration Metoclopramide HCl 5 mg 05/05/20 18:15 05/09/20 11:15 Reglan - PO Not Given TIDAC ANDREA Ondansetron HCl 8 mg 05/04/20 15:52 05/05/20 11:02 Zofran Injection IVPB 8 mg Q8H PRN Administration NAUSEA Pantoprazole Sodium 40 mg 05/05/20 18:15 05/09/20 09:41 Protonix - PO 40 mg DAILY ANDREA Administration Quetiapine Fumarate 800 mg 05/04/20 22:00 05/08/20 22:05 Seroquel - PO 800 mg HS ANDREA Administration Quinapril HCl 10 mg 05/05/20 10:00 05/09/20 09:41 Accupril - PO 10 mg DAILY ANDREA Administration Rosuvastatin Calcium 10 mg 05/04/20 22:00 05/08/20 22:07 Crestor - PO 10 mg HS ANDREA Administration Warfarin Sodium 7.5 mg 05/09/20 18:00 Coumadin - PO DAILY@1800 ANDREA Zinc Sulfate 220 mg 05/04/20 22:00 05/09/20 09:43 Orazinc - PO Not Given BID ANDREA Ziprasidone 40 mg 05/09/20 10:00 05/09/20 09:42 Geodon - PO 40 mg BID ANDREA Administration Laboratory Results - last 24 hr 05/08/20 05/08/20 05/08/20 12:20 16:16 21:46 WBC RBC Hgb Hct MCV MCH MCHC RDW Plt Count MPV Absolute Neuts (auto) Neutrophils % Lymphocytes % Monocytes % Eosinophils % Basophils % Nucleated RBC % PT with INR INR Sodium Potassium Chloride Carbon Dioxide Anion Gap BUN Creatinine Est GFR (CKD-EPI)AfAm Est GFR (CKD-EPI)NonAf POC Glucometer 150 208 Random Glucose Calcium Total Bilirubin AST ALT Alkaline Phosphatase Total Protein Albumin COVID-19 ([facility]) Not detected 05/09/20 05/09/20 05/09/20 05:53 06:45 06:45 WBC 7.3 RBC 3.96 Hgb 11.2 Hct 34.2 MCV 86.2 MCH 28.3 MCHC 32.8 RDW 15.8 H Plt Count 198 MPV 8.5 Absolute Neuts (auto) 4.3 Neutrophils % 58.6 Lymphocytes % 28.2 D Monocytes % 8.7 Eosinophils % 4.3 D Basophils % 0.2 Nucleated RBC % 0 PT with INR 14.90 H INR 1.26 H Sodium Potassium Chloride Carbon Dioxide Anion Gap BUN Creatinine Est GFR (CKD-EPI)AfAm Est GFR (CKD-EPI)NonAf POC Glucometer 143 Random Glucose Calcium Total Bilirubin AST ALT Alkaline Phosphatase Total Protein Albumin COVID-19 ([facility]) 05/09/20 06:45 WBC RBC Hgb Hct MCV MCH MCHC RDW Plt Count MPV Absolute Neuts (auto) Neutrophils % Lymphocytes % Monocytes % Eosinophils % Basophils % Nucleated RBC % PT with INR INR Sodium 144 Potassium 3.9 Chloride 109 H Carbon Dioxide 24 Anion Gap 11 BUN 17.6 Creatinine 1.3 Est GFR (CKD-EPI)AfAm 50.56 Est GFR (CKD-EPI)NonAf 43.62 POC Glucometer Random Glucose 145 H Calcium 9.2 Total Bilirubin 0.6 AST 10 L ALT 19 Alkaline Phosphatase 99 Total Protein 6.8 Albumin 3.2 L COVID-19 ([facility]) Lungs clear Abd- soft,NT, obese Trace edema PLAN start coumadin on Lovenox therapy continue with meds on PPI Problem List - Problems (1) Abdominal pain Code(s): R10.9 - UNSPECIFIED ABDOMINAL PAIN Qualifiers: Abdominal location: generalized Qualified Code(s): R10.84 - Generalized abdominal pain (2) Nausea and vomiting Code(s): R11.2 - NAUSEA WITH VOMITING, UNSPECIFIED Qualifiers: Vomiting type: unspecified Vomiting Intractability: intractable Qualified Code(s): R11.2 - Nausea with vomiting, unspecified (3) ASHD (arteriosclerotic heart disease) Code(s): I25.10 - ATHSCL HEART DISEASE OF [place] CORONARY ARTERY W/O ANG PCTRS (4) COPD (chronic obstructive pulmonary disease) Code(s): J44.9 - CHRONIC OBSTRUCTIVE PULMONARY DISEASE, UNSPECIFIED Qualifiers:
[2020-05-09 14:25] VITALS: BMI 52.2
[2020-05-09] MEDS ORDERED: WARFARIN NA 7.5 MG TABLET (FP) PO SCH (18:00)
[2020-05-09] MEDS: QUEtiapine FUMARATE 200 MG TABLET PO SCH (21:14)
[2020-05-09] MEDS: ROSUVASTATIN CA 10 MG TABLET (FP) PO SCH (21:17)
[2020-05-09] MEDS: INSULIN (LEVEMIR) 100 UNITS/ML UNITS SQ SCH (21:24)
[2020-05-09] MEDS ORDERED: INSULIN (LEVEMIR) 100 UNITS/ML UNITS SQ ONE (22:23)
[2020-05-09] MEDS ORDERED: PT OWN MED DRAWER 7, Y5N ONE (22:23)
[2020-05-10] MEDS ORDERED: INSULIN (NOVOLOG) ASPART 100 UNITS/ML 10ML VIAL ONE ×2 (06:17→06:38)
[2020-05-10] MEDS ORDERED: PT OWN MED DRAWER 7, Y5N ONE ×3 (06:18→20:59)
[2020-05-10] MEDS: GABAPENTIN 100 MG CAPSULE PO SCH ×3 (06:23→21:14)
[2020-05-10] MEDS: LEVOTHYROXINE NA 200 MCG TABLET PO SCH (06:23)
[2020-05-10] MEDS: METOCLOPRAMIDE HCL 10 MG TABLET (FP) PO SCH ×3 (06:24→16:24)
[2020-05-10] MEDS: INSULIN SLIDING SCALE (NOVOLOG) 1 VIAL SQ SCH ×4 (06:28→21:21)
[2020-05-10] MEDS: BUSPIRONE HCL 10 MG, BUSPIRONE HCL 5 MG PO SCH ×3 (06:29→21:18)
[2020-05-10 07:10] LABS: HEMATOCRIT 34.7 % (32.4-45.2); HEMOGLOBIN 11.3 GM/dL (10.7-15.3); MCH 27.8 pg (25.7-33.7); MCHC 32.6 g/dl (32.0-36.0); MEAN CELL VOLUME 85.5 fl (80-96); MEAN PLT VOLUME 8.6 fl (7.5-11.1); PLATELET COUNT 209 K/MM3 (134-434); RBC 4.07 M/mm3 (3.60-5.2); RDW 16.1 % (11.6-15.6)
[2020-05-10 07:12] LABS: INR 1.19 (0.83-1.09); PROTHROMBIN TIME (PATIENT) 14.1 SEC (9.7-13.0)
[2020-05-10] MEDS: ZIPRASIDONE 40 MG CAPSULE PO SCH ×2 (09:09→21:17)
[2020-05-10] MEDS: QUINAPRIL HCL 10 MG TABLET (FP) PO SCH (09:09)
[2020-05-10] MEDS: ANASTROZOLE 1 MG TABLET PO SCH (09:10)
[2020-05-10] MEDS: ENOXAPARIN SQ SCH ×2 (09:11→21:16)
[2020-05-10] MEDS: ZINC SULFATE 220 MG CAPSULE (FP) PO SCH ×2 (09:12→21:17)
[2020-05-10] MEDS: PANTOPRAZOLE 40 MG TABLET PO SCH (09:17)
--- NOTE | 2020-05-10 10:12 | PN ---
Progress Note (short form) - Note Progress Note: Feels overall better. No acute events post procedure. No CP or SOB. Intake & Output 05/07/20 05/08/20 05/09/20 05/10/20 23:59 23:59 23:59 23:59 Intake Total 2800 2350 1230 0 Balance 2800 2350 1230 0 Weight 364 lb 1 oz Last Vital Signs Temp Pulse Resp BP Pulse Ox 97.7 F 78 20 149/95 94 L 05/10/20 09:07 05/10/20 09:07 05/10/20 09:07 05/10/20 09:07 05/09/20 21:00 Active Medications Albuterol Sulfate (Ventolin Hfa Inhaler -) 1 puff IH Q4H PRN PRN Reason: SHORT OF BREATH/WHEEZING Last Admin: 05/08/20 14:00 Dose: 1 puff Documented by: Anastrozole (Arimidex -) 1 mg PO DAILY [facility] Last Admin: 05/10/20 09:10 Dose: 1 mg Documented by: Buspirone HCl 10 mg/ Buspirone (HCl 5 mg) 15 mg PO TID [facility] Last Admin: 05/10/20 06:29 Dose: 15 mg Documented by: Enoxaparin Sodium 120 mg/ (Enoxaparin Sodium 40 mg) 160 mg SQ BID [facility] Last Admin: 05/10/20 09:11 Dose: 160 mg Documented by: Gabapentin (Neurontin -) 100 mg PO TID [facility] Last Admin: 05/10/20 06:23 Dose: 100 mg Documented by: Insulin Aspart (Novolog Vial Sliding Scale -) 1 vial SQ [facility]; Protocol Last Admin: 05/10/20 06:28 Dose: 3 units Documented by: Insulin Detemir (Levemir Vial) 10 units SQ [facility] Last Admin: 05/09/20 21:24 Dose: 10 units Documented by: Levothyroxine Sodium (Synthroid -) 200 mcg PO DAILY@0700 [facility] Last Admin: 05/10/20 06:23 Dose: 200 mcg Documented by: Metoclopramide HCl (Reglan -) 5 mg PO TIDAC [facility] Last Admin: 05/10/20 06:24 Dose: 5 mg Documented by: Ondansetron HCl (Zofran Injection) 8 mg IVPB Q8H PRN PRN Reason: NAUSEA Last Admin: 05/05/20 11:02 Dose: 8 mg Documented by: Pantoprazole Sodium (Protonix -) 40 mg PO DAILY [facility] Last Admin: 05/10/20 09:17 Dose: 40 mg Documented by: Quetiapine Fumarate (Seroquel -) 800 mg PO [facility] Last Admin: 05/09/20 21:14 Dose: 800 mg Documented by: Quinapril HCl (Accupril -) 10 mg PO DAILY [facility] Last Admin: 05/10/20 09:09 Dose: 10 mg Documented by: Rosuvastatin Calcium (Crestor -) 10 mg PO HS [facility] Last Admin: 05/09/20 21:17 Dose: 10 mg Documented by: Warfarin Sodium (Coumadin -) 7.5 mg PO DAILY@1800 [facility] Last Admin: 05/09/20 17:21 Dose: 7.5 mg Documented by: Zinc Sulfate (Orazinc -) 220 mg PO BID [facility] Last Admin: 05/10/20 09:12 Dose: Not Given Documented by: Ziprasidone (Geodon -) 40 mg PO BID [facility] Last Admin: 05/10/20 09:09 Dose: 40 mg Documented by: Constitutional: Yes: No Distress Eyes: Yes: Conjunctiva Clear, EOM Intact, Cataracts HENT: Yes: Atraumatic, Normocephalic Neck: Yes: Supple, Trachea Midline Cardiovascular: Yes: Regular Rate and Rhythm Respiratory: Yes: Diminished, Dullness, On Nasal O2. No: Accessory Muscle Use, Rales, Rhonchi, SOB, SOB on Exertion, Stridor, Tachypnea, Wheezes ...Inspection: Yes: WNL ...Clubbing: No Gastrointestinal: Yes: Normal Bowel Sounds, Soft, Abdomen, Obese Renal/: Yes: WNL Musculoskeletal: Yes: WNL Extremities: Yes: WNL Edema: No Peripheral Pulses WNL: Yes Integumentary: Yes: WNL Neurological: Yes: WNL, Alert, Oriented ...Motor Strength: WNL Psychiatric: Yes: WNL, Alert, Oriented Labs: Laboratory Results - last 24 hr 05/09/20 05/09/20 05/10/20 16:43 21:21 06:27 WBC RBC Hgb Hct MCV MCH MCHC RDW Plt Count MPV PT with INR INR POC Glucometer 250 200 177 05/10/20 05/10/20 06:37 06:37 WBC 8.0 RBC 4.07 Hgb 11.3 Hct 34.7 MCV 85.5 MCH 27.8 MCHC 32.6 RDW 16.1 H Plt Count 209 MPV 8.6 PT with INR 14.10 H INR 1.19 H POC Glucometer Imaging - Results Chest X-ray: Report Reviewed, Image Reviewed Problem List - Problems (1) Abdominal pain Code(s): R10.9 - UNSPECIFIED ABDOMINAL PAIN Qualifiers: Abdominal location: generalized Qualified Code(s): R10.84 - Generalized abdominal pain (2) Nausea and vomiting Code(s): R11.2 - NAUSEA WITH VOMITING, UNSPECIFIED Qualifiers: Vomiting type: unspecified Vomiting Intractability: intractable Qualified Code(s): R11.2 - Nausea with vomiting, unspecified (3) Rectal bleeding Code(s): K62.5 - HEMORRHAGE OF ANUS AND RECTUM (4) ASHD (arteriosclerotic heart disease) Code(s): I25.10 - ATHSCL HEART DISEASE OF [place] CORONARY ARTERY W/O ANG PCTRS (5) Breast CA Code(s): C50.919 - MALIGNANT NEOPLASM OF UNSP SITE OF UNSPECIFIED FEMALE BREAST (6) COPD (chronic obstructive pulmonary disease) Code(s): J44.9 - CHRONIC OBSTRUCTIVE PULMONARY DISEASE, UNSPECIFIED Qualifiers: (7) COVID-19 virus infection Code(s): U07.1 - COVID POSITIVE (8) Chronic hypoxemic respiratory failure Code(s): J96.11 - CHRONIC RESPIRATORY FAILURE WITH HYPOXIA (9) Diabetes mellitus type 2, insulin dependent Code(s): E11.9 - TYPE 2 DIABETES MELLITUS WITHOUT COMPLICATIONS; Z79.4 - RESIDENTIAL (CURRENT) USE OF INSULIN (10) History of pulmonary embolus (PE) Code(s): Z86.711 - PERSONAL HISTORY OF PULMONARY EMBOLISM (11) Hyperlipidemia Code(s): E78.5 - HYPERLIPIDEMIA, UNSPECIFIED Qualifiers: Hyperlipidemia type: pure hypercholesterolemia Qualified Code(s): E78.00 - Pure hypercholesterolemia, unspecified; E78.0 - Pure hypercholesterolemia (12) Hypertension Code(s): I10 - ESSENTIAL (PRIMARY) HYPERTENSION Qualifiers: Hypertension type: essential hypertension Qualified Code(s): I10 - Essential (primary) hypertension (13) Hypothyroidism Code(s): E03.9 - HYPOTHYROIDISM, UNSPECIFIED Qualifiers: (14) IDDM (insulin dependent diabetes mellitus) Code(s): [id number] - (15) Morbid obesity with BMI of 40.0-44.9, adult Code(s): E66.01 - MORBID (SEVERE) OBESITY DUE TO EXCESS CALORIES; Z68.41 - BODY MASS INDEX (BMI) 40.0-44.9, ADULT (16) Obstructive sleep apnea on CPAP Code(s): G47.33 - OBSTRUCTIVE SLEEP APNEA (ADULT) (PEDIATRIC) (17) Schizoaffective disorder, bipolar type Code(s): F25.0 - SCHIZOAFFECTIVE DISORDER, BIPOLAR TYPE (18) Status post repair of ventral hernia Code(s): Z98.890 - OTHER SPECIFIED POSTPROCEDURAL STATES; Z87.19 - PERSONAL HISTORY OF OTHER DISEASES OF THE DIGESTIVE SYSTEM Assessment/Plan There is no Pulmonary contraindication for discharge Follow in office Dr Hemphill Problem List - Problems (1) Abdominal pain Code(s): R10.9 - UNSPECIFIED ABDOMINAL PAIN Qualifiers: Abdominal location: generalized Qualified Code(s): R10.84 - Generalized abdominal pain (2) Nausea and vomiting Code(s): R11.2 - NAUSEA WITH VOMITING, UNSPECIFIED Qualifiers: Vomiting type: unspecified Vomiting Intractability: intractable Qualified Code(s): R11.2 - Nausea with vomiting, unspecified (3) Rectal bleeding Code(s): K62.5 - HEMORRHAGE OF ANUS AND RECTUM (4) ASHD (arteriosclerotic heart disease) Code(s): I25.10 - ATHSCL HEART DISEASE OF [place] CORONARY ARTERY W/O ANG PCTRS (5) Breast CA Code(s): C50.919 - MALIGNANT NEOPLASM OF UNSP SITE OF UNSPECIFIED FEMALE BREAST (6) COPD (chronic obstructive pulmonary disease) Code(s): J44.9 - CHRONIC OBSTRUCTIVE PULMONARY DISEASE, UNSPECIFIED Qualifiers: (7) COVID-19 virus infection Code(s): U07.1 - COVID POSITIVE (8) Chronic hypoxemic respiratory failure Code(s): J96.11 - CHRONIC RESPIRATORY FAILURE WITH HYPOXIA (9) Diabetes mellitus type 2, insulin dependent Code(s): E11.9 - TYPE 2 DIABETES MELLITUS WITHOUT COMPLICATIONS; Z79.4 - WEAVER DOBBY LOOM (CURRENT) USE OF INSULIN (10) History of pulmonary embolus (PE) Code(s): Z86.711 - PERSONAL HISTORY OF PULMONARY EMBOLISM (11) Hyperlipidemia Code(s): E78.5 - HYPERLIPIDEMIA, UNSPECIFIED Qualifiers: Hyperlipidemia type: pure hypercholesterolemia Qualified Code(s): E78.00 - Pure hypercholesterolemia, unspecified; E78.0 - Pure hypercholesterolemia (12) Hypertension Code(s): I10 - ESSENTIAL (PRIMARY) HYPERTENSION Qualifiers: Hypertension type: essential hypertension Qualified Code(s): I10 - Essential (primary) hypertension (13) Hypothyroidism Code(s): E03.9 - HYPOTHYROIDISM, UNSPECIFIED Qualifiers: (14) IDDM (insulin dependent diabetes mellitus) Code(s): [id number] - (15) Morbid obesity with BMI of 40.0-44.9, adult Code(s): E66.01 - MORBID (SEVERE) OBESITY DUE TO EXCESS CALORIES; Z68.41 - BODY MASS INDEX (BMI) 40.0-44.9, ADULT (16) Obstructive sleep apnea on CPAP Code(s): G47.33 - OBSTRUCTIVE SLEEP APNEA (ADULT) (PEDIATRIC) (17) Schizoaffective disorder, bipolar type Code(s): F25.0 - SCHIZOAFFECTIVE DISORDER, BIPOLAR TYPE (18) Status post repair of ventral hernia Code(s): Z98.890 - OTHER SPECIFIED POSTPROCEDURAL STATES; Z87.19 - PERSONAL HISTORY OF OTHER DISEASES OF THE DIGESTIVE SYSTEM
--- NOTE | 2020-05-10 11:15 | PATH ---
Surgical Pathology Report Patient Name: BERNARD PETERSEN Med. Rec. #: [id number] /Age/Gender: 1955 (Age: 64) / F Account: [id number] Location: [facility] MED/SURG Taken: 05/09/2020 Received: 05/09/2020 Reported: 05/10/2020 Physicians: Nabor Hightower M.D. Specimen(s) Received PANCREATIC STENT Clinical History History of pancreatic stent Final Diagnosis PANCREATIC STENT, REMOVAL: CONSISTENT WITH SEGMENT OF STENT. GROSS EXAMINATION ONLY. Electronically Signed Catrina Black M.D. Gross Description Received fresh labeled "pancreatic stent," is a 4 cm in length green portion of tubing, consistent with a stent. No soft tissue is present. No sections are submitted, gross only. /05/09/2020 [facility]/05/09/2020
--- NOTE | 2020-05-10 12:10 | PN ---
Progress Note (short form) - Note Progress Note: no distress feels well she has painful swelling in perineum area Vital Signs - 24 hr 05/09/20 05/09/20 05/09/20 12:23 12:38 12:45 Temperature 99.0 F Pulse Rate 70 68 67 Respiratory 12 17 18 Rate Blood Pressure 126/60 135/67 136/74 O2 Sat by Pulse 100 100 98 Oximetry (%) 05/09/20 05/09/20 05/09/20 12:59 14:06 18:00 Temperature 98.5 F 98 F 97.7 F Pulse Rate 70 79 77 Respiratory 20 20 20 Rate Blood Pressure 126/60 155/86 141/86 O2 Sat by Pulse Oximetry (%) 05/09/20 05/09/20 05/10/20 21:00 22:00 06:47 Temperature 97.8 F 98.0 F Pulse Rate 77 77 Respiratory 20 20 Rate Blood Pressure 157/91 152/82 O2 Sat by Pulse 94 L Oximetry (%) 05/10/20 05/10/20 09:00 09:07 Temperature 97.7 F Pulse Rate 78 Respiratory 20 Rate Blood Pressure 149/95 O2 Sat by Pulse 97 Oximetry (%) Current Medications Generic Name Dose Route Start Last Admin Trade Name Freq PRN Reason Stop Dose Admin Albuterol Sulfate 1 puff 05/04/20 15:47 05/08/20 14:00 Ventolin Hfa Inhaler - IH 1 puff Q4H PRN Administration SHORT OF BREATH/WHEEZING Anastrozole 1 mg 05/05/20 10:00 05/10/20 09:10 Arimidex - PO 1 mg DAILY [facility] Administration Buspirone HCl 10 mg/ Buspirone 15 mg 05/09/20 06:00 05/10/20 06:29 HCl 5 mg PO 15 mg TID [facility] Administration Enoxaparin Sodium 120 mg/ 160 mg 05/08/20 22:00 05/10/20 09:11 Enoxaparin Sodium 40 mg SQ 160 mg BID [facility] Administration Gabapentin 100 mg 05/04/20 22:00 05/10/20 06:23 Neurontin - PO 100 mg TID [facility] Administration Insulin Aspart 1 vial 05/04/20 16:30 05/10/20 11:35 Novolog Vial Sliding Scale - SQ 3 units ACHS [facility] Administration Protocol Insulin Detemir 10 units 05/04/20 22:00 05/09/20 21:24 Levemir Vial SQ 10 units HS [facility] Administration Levothyroxine Sodium 200 mcg 05/05/20 07:00 05/10/20 06:23 Synthroid - PO 200 mcg DAILY@0700 [facility] Administration Metoclopramide HCl 5 mg 05/05/20 18:15 05/10/20 11:29 Reglan - PO 5 mg TIDAC [facility] Administration Ondansetron HCl 8 mg 05/04/20 15:52 05/05/20 11:02 Zofran Injection IVPB 8 mg Q8H PRN Administration NAUSEA Pantoprazole Sodium 40 mg 05/05/20 18:15 05/10/20 09:17 Protonix - PO 40 mg DAILY [facility] Administration Quetiapine Fumarate 800 mg 05/04/20 22:00 05/09/20 21:14 Seroquel - PO 800 mg HS [facility] Administration Quinapril HCl 10 mg 05/05/20 10:00 05/10/20 09:09 Accupril - PO 10 mg DAILY [facility] Administration Rosuvastatin Calcium 10 mg 05/04/20 22:00 05/09/20 21:17 Crestor - PO 10 mg HS [facility] Administration Warfarin Sodium 10 mg 05/10/20 18:00 Coumadin - PO DAILY@1800 [facility] Zinc Sulfate 220 mg 05/04/20 22:00 05/10/20 09:12 Orazinc - PO Not Given BID [facility] Ziprasidone 40 mg 05/09/20 10:00 05/10/20 09:09 Geodon - PO 40 mg BID [facility] Administration Laboratory Results - last 24 hr 05/09/20 05/09/20 05/10/20 16:43 21:21 06:27 WBC RBC Hgb Hct MCV MCH MCHC RDW Plt Count MPV PT with INR INR POC Glucometer 250 200 177 05/10/20 05/10/20 05/10/20 06:37 06:37 11:27 WBC 8.0 RBC 4.07 Hgb 11.3 Hct 34.7 MCV 85.5 MCH 27.8 MCHC 32.6 RDW 16.1 H Plt Count 209 MPV 8.6 PT with INR 14.10 H INR 1.19 H POC Glucometer 175 Lungs clear Abd- soft,NT, obese Trace edema multiple perineal cysts, abscess-- small --noted PLAN increase coumadin tonight on Lovenox therapy continue with meds on PPI add Mupirocin ointment dc pt home once INR>2 Problem List - Problems (1) Abdominal pain Code(s): R10.9 - UNSPECIFIED ABDOMINAL PAIN Qualifiers: Abdominal location: generalized Qualified Code(s): R10.84 - Generalized abdominal pain (2) Nausea and vomiting Code(s): R11.2 - NAUSEA WITH VOMITING, UNSPECIFIED Qualifiers: Vomiting type: unspecified Vomiting Intractability: intractable Qualified Code(s): R11.2 - Nausea with vomiting, unspecified (3) ASHD (arteriosclerotic heart disease) Code(s): I25.10 - ATHSCL HEART DISEASE OF [place] CORONARY ARTERY W/O ANG PCTRS (4) COPD (chronic obstructive pulmonary disease) Code(s): J44.9 - CHRONIC OBSTRUCTIVE PULMONARY DISEASE, UNSPECIFIED Qualifiers:
[2020-05-10] MEDS: MUPIROCIN 2% TOPICAL OINTMENT 22 GM TUBE TP SCH ×2 (15:29→21:23)
[2020-05-10] MEDS: WARFARIN NA 3 MG TABLET PO SCH (17:15)
[2020-05-10] MEDS ORDERED: WARFARIN NA 10 MG TABLET PO SCH (18:00)
[2020-05-10] MEDS ORDERED: MELATONIN 5 MG TABLETS PO ONE (20:40)
[2020-05-10] MEDS: ALBUTEROL SO4 HFA INHALER IH PRN (21:12)
[2020-05-10] MEDS: ROSUVASTATIN CA 10 MG TABLET (FP) PO SCH (21:14)
[2020-05-10] MEDS: QUEtiapine FUMARATE 200 MG TABLET PO SCH (21:17)
[2020-05-10] MEDS: INSULIN (LEVEMIR) 100 UNITS/ML UNITS SQ SCH (21:19)
[2020-05-11] MEDS ORDERED: PT OWN MED DRAWER 7, Y5N ONE ×4 (06:08→22:37)
[2020-05-11] MEDS: INSULIN SLIDING SCALE (NOVOLOG) 1 VIAL SQ SCH ×4 (06:23→21:42)
[2020-05-11] MEDS: METOCLOPRAMIDE HCL 10 MG TABLET (FP) PO SCH ×3 (06:23→16:42)
[2020-05-11] MEDS: BUSPIRONE HCL 10 MG, BUSPIRONE HCL 5 MG PO SCH ×3 (06:24→21:39)
[2020-05-11] MEDS: LEVOTHYROXINE NA 200 MCG TABLET PO SCH (06:25)
[2020-05-11] MEDS: GABAPENTIN 100 MG CAPSULE PO SCH ×3 (06:25→21:35)
[2020-05-11] MEDS: ALBUTEROL SO4 HFA INHALER IH PRN ×2 (06:27→21:56)
--- NOTE | 2020-05-11 08:04 | PN.HO ---
Progress Note (short form) - Note Progress Note: PAtient seen and examined Feels better AFVSS Cor: RSR, No murmurs, No gallops Lungs: Clear to P&A Abd: Soft, Normal bowel sounds, No organomegaly Ext:No significant edema Left breast lower quadrant --nodularity LAbs/Meds reviewed A/P 64 y/o lady w a hx of IDDM, pancreatitis, copd on 3L O2, htn, hld, schizoaffective disorder, seizures,obesity, sleep apnea (uses cpap at night with 3L NC O2), breast ca s/p lumpectomy/chemo/radiation 4 years [address] Mehul pappas and on Anastrozole maintenance who presented to the ER with lower abdominal pain with bloody diarrhea x1 day. States she was Covid-19 positive 1 month ago. GI symptoms improved Bilateral Mammogram and Breast US. Has palpable mass in R breast--> If discharged please make an appointment with Dr. Garg for close f/u
[2020-05-11 08:25] LABS: INR 1.2 (0.83-1.09); PROTHROMBIN TIME (PATIENT) 14.2 SEC (9.7-13.0)
[2020-05-11] MEDS: PANTOPRAZOLE 40 MG TABLET PO SCH (09:10)
[2020-05-11] MEDS: ENOXAPARIN SQ SCH ×2 (09:11→21:46)
[2020-05-11] MEDS: ZINC SULFATE 220 MG CAPSULE (FP) PO SCH ×2 (09:11→21:47)
[2020-05-11] MEDS: QUINAPRIL HCL 10 MG TABLET (FP) PO SCH (09:12)
[2020-05-11] MEDS: ANASTROZOLE 1 MG TABLET PO SCH (09:12)
[2020-05-11] MEDS: MUPIROCIN 2% TOPICAL OINTMENT 22 GM TUBE TP SCH ×2 (09:12→21:45)
[2020-05-11] MEDS: ZIPRASIDONE 40 MG CAPSULE PO SCH ×2 (09:13→22:45)
--- NOTE | 2020-05-11 11:44 | PN ---
Progress Note, Physician History of Present Illness: Pt seen/ examined. chart is reviewed Awake/ comfortable feels better sometimes has cramps- otherwise ok alert/ awake speech clear stents removed - Current Medication List Current Medications: Active Medications Albuterol Sulfate (Ventolin Hfa Inhaler -) 1 puff IH Q4H PRN PRN Reason: SHORT OF BREATH/WHEEZING Last Admin: 05/11/20 06:27 Dose: 1 puff Documented by: Anastrozole (Arimidex -) 1 mg PO DAILY [facility] Last Admin: 05/11/20 09:12 Dose: 1 mg Documented by: Buspirone HCl 10 mg/ Buspirone (HCl 5 mg) 15 mg PO TID [facility] Last Admin: 05/11/20 06:24 Dose: 15 mg Documented by: Enoxaparin Sodium 120 mg/ (Enoxaparin Sodium 40 mg) 160 mg SQ BID [facility] Last Admin: 05/11/20 09:11 Dose: 160 mg Documented by: Gabapentin (Neurontin -) 100 mg PO TID [facility] Last Admin: 05/11/20 06:25 Dose: 100 mg Documented by: Insulin Aspart (Novolog Vial Sliding Scale -) 1 vial SQ [facility]; Protocol Last Admin: 05/11/20 06:23 Dose: Not Given Documented by: Insulin Detemir (Levemir Vial) 10 units SQ [facility] Last Admin: 05/10/20 21:19 Dose: 10 units Documented by: Levothyroxine Sodium (Synthroid -) 200 mcg PO DAILY@0700 [facility] Last Admin: 05/11/20 06:25 Dose: 200 mcg Documented by: Metoclopramide HCl (Reglan -) 5 mg PO TIDAC [facility] Last Admin: 05/11/20 06:23 Dose: 5 mg Documented by: Mupirocin (Bactroban 2% Ointment -) 1 applic TP BID [facility] Last Admin: 05/11/20 09:12 Dose: 1 applic Documented by: Ondansetron HCl (Zofran Injection) 8 mg IVPB Q8H PRN PRN Reason: NAUSEA Last Admin: 05/05/20 11:02 Dose: 8 mg Documented by: Pantoprazole Sodium (Protonix -) 40 mg PO DAILY [facility] Last Admin: 05/11/20 09:10 Dose: 40 mg Documented by: Quetiapine Fumarate (Seroquel -) 800 mg PO [facility] Last Admin: 05/10/20 21:17 Dose: 800 mg Documented by: Quinapril HCl (Accupril -) 10 mg PO DAILY [facility] Last Admin: 05/11/20 09:12 Dose: 10 mg Documented by: Rosuvastatin Calcium (Crestor -) 10 mg PO [facility] Last Admin: 05/10/20 21:14 Dose: 10 mg Documented by: Warfarin Sodium (Coumadin -) 9 mg PO DAILY@1800 [facility] Last Admin: 05/10/20 17:15 Dose: 9 mg Documented by: Warfarin Sodium (Coumadin -) 3 mg PO ONCE@1800 ONE Stop: 05/11/20 18:01 Zinc Sulfate (Orazinc -) 220 mg PO BID [facility] Last Admin: 05/11/20 09:11 Dose: Not Given Documented by: Ziprasidone (Geodon -) 40 mg PO BID [facility] Last Admin: 05/11/20 09:13 Dose: 40 mg Documented by: - Objective Vital Signs: Vital Signs Temperature 97.3 F L 05/11/20 05:04 Pulse Rate 81 05/11/20 05:04 Respiratory Rate 05/11/20 05:04 Blood Pressure 130/64 05/11/20 05:04 O2 Sat by Pulse Oximetry (%) 97 05/10/20 21:00 Constitutional: Yes: No Distress, Calm, Obese Eyes: Yes: Conjunctiva Clear Neck: Yes: Supple Cardiovascular: Yes: Regular Rate and Rhythm Respiratory: Yes: Diminished Gastrointestinal: Yes: Soft, Abdomen, Obese Edema: No Neurological: Yes: Alert, Other (non focal.) Psychiatric: Yes: Alert Labs: CBC, BMP 05/10/20 06:37 05/09/20 06:45 INR, PTT INR 1.20 (0.83-1.09) H 05/11/20 07:41 Problem List - Problems (1) Nausea and vomiting Code(s): R11.2 - NAUSEA WITH VOMITING, UNSPECIFIED Qualifiers: Vomiting type: unspecified Vomiting Intractability: intractable Qualified Code(s): R11.2 - Nausea with vomiting, unspecified (2) Supratherapeutic INR Code(s): R79.1 - ABNORMAL COAGULATION PROFILE (3) ASHD (arteriosclerotic heart disease) Code(s): I25.10 - ATHSCL HEART DISEASE OF [place] CORONARY ARTERY W/O ANG PCTRS (4) Breast CA Code(s): C50.919 - MALIGNANT NEOPLASM OF UNSP SITE OF UNSPECIFIED FEMALE BREAST (5) COPD (chronic obstructive pulmonary disease) Code(s): J44.9 - CHRONIC OBSTRUCTIVE PULMONARY DISEASE, UNSPECIFIED Qualifiers: (6) Diabetes mellitus type 2, insulin dependent Code(s): E11.9 - TYPE 2 DIABETES MELLITUS WITHOUT COMPLICATIONS; Z79.4 - RETIREMENT (CURRENT) USE OF INSULIN (7) History of pulmonary embolism Code(s): Z86.711 - PERSONAL HISTORY OF PULMONARY EMBOLISM (8) Hypothyroidism Code(s): E03.9 - HYPOTHYROIDISM, UNSPECIFIED Qualifiers: (9) Morbid obesity with BMI of 40.0-44.9, adult Code(s): E66.01 - MORBID (SEVERE) OBESITY DUE TO EXCESS CALORIES; Z68.41 - BODY MASS INDEX (BMI) 40.0-44.9, ADULT (10) Obstructive sleep apnea on CPAP Code(s): G47.33 - OBSTRUCTIVE SLEEP APNEA (ADULT) (PEDIATRIC) (11) Schizophrenia Code(s): F20.9 - SCHIZOPHRENIA, UNSPECIFIED Qualifiers: Assessment/Plan Stable Continue present care Pancreatic stent removed D/W RN also will give 3 mg extra dose of Coumadin tonight Overall with Lovenox till inr therapeutic will follow
--- NOTE | 2020-05-11 12:03 | PN ---
Progress Note (short form) - Note Progress Note: PULMONARY HAD SOB LAST PM BETTER NOW REMAINS ON NASAL O2 VSS/AFEBRILE HESITANT IN SPEECH Constitutional: Yes: No Distress Eyes: Yes: Conjunctiva Clear, EOM Intact, Cataracts HENT: Yes: Atraumatic, Normocephalic Neck: Yes: Supple, Trachea Midline Cardiovascular: Yes: Regular Rate and Rhythm Respiratory: Yes: Diminished, Dullness, On Nasal O2. No: Accessory Muscle Use, Rales, Rhonchi, SOB, SOB on Exertion, Stridor, Tachypnea, Wheezes ...Inspection: Yes: WNL ...Clubbing: No Gastrointestinal: Yes: Normal Bowel Sounds, Soft, Abdomen, Obese Renal/: Yes: WNL Musculoskeletal: Yes: WNL Extremities: Yes: WNL Edema: No Peripheral Pulses WNL: Yes Integumentary: Yes: WNL Neurological: Yes: WNL, Alert, Oriented ...Motor Strength: WNL Psychiatric: Yes: WNL, Alert, Oriented Labs: REVIEWED Chest X-ray: Report Reviewed, Image Reviewed Problem List - Problems (1) Abdominal pain Code(s): R10.9 - UNSPECIFIED ABDOMINAL PAIN Qualifiers: Abdominal location: generalized Qualified Code(s): R10.84 - Generalized abdominal pain (2) Nausea and vomiting Code(s): R11.2 - NAUSEA WITH VOMITING, UNSPECIFIED Qualifiers: Vomiting type: unspecified Vomiting Intractability: intractable Qualified Code(s): R11.2 - Nausea with vomiting, unspecified (3) Rectal bleeding Code(s): K62.5 - HEMORRHAGE OF ANUS AND RECTUM (4) ASHD (arteriosclerotic heart disease) Code(s): I25.10 - ATHSCL HEART DISEASE OF [place] CORONARY ARTERY W/O ANG PCTRS (5) Breast CA Code(s): C50.919 - MALIGNANT NEOPLASM OF UNSP SITE OF UNSPECIFIED FEMALE BREAST (6) COPD (chronic obstructive pulmonary disease) Code(s): J44.9 - CHRONIC OBSTRUCTIVE PULMONARY DISEASE, UNSPECIFIED Qualifiers: (7) COVID-19 virus infection Code(s): U07.1 - COVID POSITIVE (8) Chronic hypoxemic respiratory failure Code(s): J96.11 - CHRONIC RESPIRATORY FAILURE WITH HYPOXIA (9) Diabetes mellitus type 2, insulin dependent Code(s): E11.9 - TYPE 2 DIABETES MELLITUS WITHOUT COMPLICATIONS; Z79.4 - PRE BILLING CLINICIAN (CURRENT) USE OF INSULIN (10) History of pulmonary embolus (PE) Code(s): Z86.711 - PERSONAL HISTORY OF PULMONARY EMBOLISM (11) Hyperlipidemia Code(s): E78.5 - HYPERLIPIDEMIA, UNSPECIFIED Qualifiers: Hyperlipidemia type: pure hypercholesterolemia Qualified Code(s): E78.00 - Pure hypercholesterolemia, unspecified; E78.0 - Pure hypercholesterolemia (12) Hypertension Code(s): I10 - ESSENTIAL (PRIMARY) HYPERTENSION Qualifiers: Hypertension type: essential hypertension Qualified Code(s): I10 - Essential (primary) hypertension (13) Hypothyroidism Code(s): E03.9 - HYPOTHYROIDISM, UNSPECIFIED Qualifiers: (14) IDDM (insulin dependent diabetes mellitus) Code(s): [id number] - (15) Morbid obesity with BMI of 40.0-44.9, adult Code(s): E66.01 - MORBID (SEVERE) OBESITY DUE TO EXCESS CALORIES; Z68.41 - BODY MASS INDEX (BMI) 40.0-44.9, ADULT (16) Obstructive sleep apnea on CPAP Code(s): G47.33 - OBSTRUCTIVE SLEEP APNEA (ADULT) (PEDIATRIC) (17) Schizoaffective disorder, bipolar type Code(s): F25.0 - SCHIZOAFFECTIVE DISORDER, BIPOLAR TYPE (18) Status post repair of ventral hernia Code(s): Z98.890 - OTHER SPECIFIED POSTPROCEDURAL STATES; Z87.19 - PERSONAL HISTORY OF OTHER DISEASES OF THE DIGESTIVE SYSTEM Stable resp status There is no Pulmonary contraindication for discharge Follow in office Mehul FINNEY MD
[2020-05-11] MEDS: WARFARIN NA 3 MG TABLET PO SCH (17:20)
[2020-05-11] MEDS ORDERED: WARFARIN NA 3 MG TABLET PO ONE (18:00)
--- NOTE | 2020-05-11 18:36 | CON.NEURO ---
Consult - History of Present Illness History of Present Illness: 64 YO HX IDDM, pancreatitis, HTN, HPL, schizoaffective disorder, seizures, Morbid obesity, and breast CA s/p lumpectomy/chemo/radiation, COVID in MARCH 05, Admitted via the ER due to lower abdominal pain with bloody diarrhea x1 day. called for slurred speech -- as per her she feels sx started 3 weeks ago , after her COVID -- word finding difficulty and memory issues. ( have not seen her prior to this admission , she has seen DR CHAMBERS in past) . no focal weakness, numbness. CT HD : Impression No significant interval change or CT evidence of acute intracranial pathology is identified. 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 Cardio/Vascular: Yes: HTN, Hyperlipdemia Pulmonary: Yes: COPD, Sleep Apnea, O2 Dependent Gastrointestinal: Yes: Constipation, Pancreatitis Hepatobiliary: Yes: Cholelithiasis Renal/: Yes: Renal Calculi, Other (urge incontinence, enuresis) ...: No Psych: Yes: Anxiety, Bipolar (schizoaffective bipolar) Musculoskeletal: Yes: Osteoarthritis Endocrine: Yes: Diabetes Mellitus, Hypothyroidism Additional Medical History: morbid obesity - Past Surgical History Past Surgical History: Yes: Joint Replacement, Breast Biopsy, Cholecystectomy - Alcohol/Substance Use Hx Alcohol Use: No History of Substance Use: reports: None - Smoking History Smoking history: Never smoked Have you smoked in the past 12 months: No Aproximately how many cigarettes per day: 20 If you are a former smoker, when did you quit?: Three years ago - Social History ADL: Independent (walks with cane) Home Medications - Allergies Allergies/Adverse Reactions: Allergies Allergy/AdvReac Type Severity Reaction Status Date / Time acetaminophen [From Tylenol] Allergy "VOMITS" Verified 03/29/20 13:18 almond oil Allergy "ITCHY" Verified 03/29/20 13:18 citalopram hydrobromide Allergy "STROKE Verified 03/29/20 13:18 [From Celexa] LIKE SYMPTOMS" divalproex sodium Allergy "PANCREATIT Verified 03/29/20 13:18 [From Depakote] IS" Iodinated Contrast Media Allergy Verified 03/29/20 13:18 [Iodinated Contrast Media - IV Dye] lamotrigine [From Lamictal] Allergy "FACE Verified 03/29/20 13:18 SWELLS" lithium [[place]] Allergy "SEIZURES,SWOLLEN Verified 03/29/20 13:18 ARMS/LEGS" meperidine HCl [From Demerol] Allergy "TURNS RED Verified 03/29/20 13:18 WHEN MIXED WITH NOVACAINE" shellfish derived Allergy "TURNED Verified 03/29/20 13:18 RED /ITCHY" sulfamethoxazole Allergy "COLLAPSED, Verified 03/29/20 13:18 [From Bactrim] HEART ISSUE" topiramate [From Topamax] Allergy TO Verified 03/29/20 13:18 POISONOUS LEVELS" trimethoprim [From Bactrim] Allergy "COLLAPSED,HEART Verified 03/29/20 13:18 ISSUE" - Home Medications Home Medications: Ambulatory Orders Buspirone HCl [Buspar] 15 mg PO TID 03/20/14 Anastrozole [Arimidex -] 1 mg PO DAILY #0 12/06/16 Gabapentin [Neurontin -] 100 mg PO Q8H #0 12/06/16 Insulin (Novolog) [Novolog Flexpen -] 0 units SQ ASDIR #0 12/06/16 Quetiapine Fumarate [Seroquel -] 800 mg PO HS #0 12/06/16 Quinapril HCl [Accupril -] 10 mg PO DAILY #0 12/06/16 Albuterol 0.083% Nebulizer Blaire [Ventolin 0.083% Nebulizer Soln -] 1 amp NEB Q4H PRN amp 09/28/17 Albuterol 0.083% Nebulizer Blaire [Ventolin 0.083% Nebulizer Soln -] 1 amp NEB Q4H PRN amp 08/26/19 Insulin Sliding Scale [Novolog Vial Sliding Scale -] 1 vial SQ TIDAC units 08/26/19 Levothyroxine [Synthroid -] 200 mcg PO DAILY@0700 tablet 08/26/19 Buspirone HCl 15 mg PO TID 03/04/20 Lorazepam [Ativan] 1 mg PO HS PRN 03/05/20 Rosuvastatin Calcium [Crestor] 10 mg PO DAILY 03/05/20 Ziprasidone [Geodon -] 40 mg PO BID 03/05/20 Ascorbic Acid [Vitamin C] 2,000 mg PO BID #60 tablet 03/08/20 Zinc Sulfate [Orazinc -] 220 mg PO BID #30 capsule 03/08/20 Insulin (Levemir) [Levemir Vial] 10 units SQ BID@0700,2200 05/07/20 Warfarin Na [Coumadin -] 8 tab PO DAILY 05/07/20 Pantoprazole Sodium [Protonix -] 40 mg PO DAILY #30 tablet.ec 05/10/20 Physical Exam-Neuro Vital Signs: Vital Signs Temperature 98.1 F 05/11/20 14:06 Pulse Rate 77 05/11/20 14:06 Respiratory Rate 18 05/11/20 14:06 Blood Pressure 150/82 05/11/20 14:06 O2 Sat by Pulse Oximetry (%) 97 05/11/20 09:00 Labs: CBC, BMP 05/10/20 06:37 05/09/20 06:45 INR, PTT INR 1.20 (0.83-1.09) H 05/11/20 07:41 - Neuro Exam Level Of Consciousness: Yes: Alert (EOMI, no facial, mild anomia and repetation issues , word finding difficulty, follows 2 steps, no focal weakness ), Oriented to Person (EOMI, no facial, mild anomia and repetation issues , word finding difficulty ) Imaging - Results Cat Scan: Report Reviewed, Image Reviewed Problem List - Problems (1) Dysarthria Code(s): R47.1 - DYSARTHRIA AND ANARTHRIA (2) Abdominal pain Code(s): R10.9 - UNSPECIFIED ABDOMINAL PAIN Qualifiers: Abdominal location: generalized Qualified Code(s): R10.84 - Generalized abdominal pain (3) Nausea and vomiting Code(s): R11.2 - NAUSEA WITH VOMITING, UNSPECIFIED Qualifiers: Vomiting type: unspecified Vomiting Intractability: intractable Qualified Code(s): R11.2 - Nausea with vomiting, unspecified (4) Altered mental status Code(s): R41.82 - ALTERED MENTAL STATUS, UNSPECIFIED Qualifiers: Altered mental status type: disorientation Qualified Code(s): R41.0 - Disorientation, unspecified (5) Breast CA Code(s): C50.919 - MALIGNANT NEOPLASM OF UNSP SITE OF UNSPECIFIED FEMALE BREAST Assessment/Plan 64 YO HX IDDM, pancreatitis, HTN, HPL, schizoaffective disorder, seizures, Morbid obesity, and breast CA s/p lumpectomy/chemo/radiation, COVID in FEBRUARY 2020, Admitted via the ER due to lower abdominal pain with bloody diarrhea x1 day. called for slurred speech -- as per her she feels sx started 3 weeks ago , after her COVID -- word finding difficulty and memory issues. ( have not seen her prior to this admission , she has seen DR CHAMBERS in past) . no focal weakness, numbness. CT HD : Impression No significant interval change or CT evidence of acute intracranial pathology is identified. Correlate clinically to determine further evaluation and follow-up MRI BRAIN 09/03: no acute changes AP : HX as above , with subacute onset of aphasia ( word fnding difficulty, naming and reepetition issues ) --? if COVID residual sequela vs new stroke; last MRI was in 2018-so would be reasonable to recheck and ensure no new ischemic events. She may benefit from speech therapy. Can cont Ac in meantime. She will FU with Dr Chambers as outpt. Thanks Quentin Antunez D.O.
[2020-05-11] MEDS: ROSUVASTATIN CA 10 MG TABLET (FP) PO SCH (21:35)
[2020-05-11] MEDS: QUEtiapine FUMARATE 200 MG TABLET PO SCH (21:39)
[2020-05-11] MEDS: INSULIN (LEVEMIR) 100 UNITS/ML UNITS SQ SCH (21:40)
[2020-05-11] MEDS ORDERED: INSULIN (LEVEMIR) 100 UNITS/ML UNITS SQ ONE (22:36)
[2020-05-11] MEDS ORDERED: INSULIN (NOVOLOG) ASPART 100 UNITS/ML 10ML VIAL ONE (22:37)
[2020-05-12] MEDS: GABAPENTIN 100 MG CAPSULE PO SCH ×3 (06:13→21:51)
[2020-05-12] MEDS: BUSPIRONE HCL 10 MG, BUSPIRONE HCL 5 MG PO SCH ×3 (06:13→21:52)
[2020-05-12] MEDS: METOCLOPRAMIDE HCL 10 MG TABLET (FP) PO SCH ×3 (06:13→17:07)
[2020-05-12] MEDS: LEVOTHYROXINE NA 200 MCG TABLET PO SCH (06:13)
[2020-05-12] MEDS: INSULIN SLIDING SCALE (NOVOLOG) 1 VIAL SQ SCH ×4 (06:14→21:55)
[2020-05-12] MEDS ORDERED: INSULIN (NOVOLOG) ASPART 100 UNITS/ML 10ML VIAL ONE ×2 (06:20→10:56)
[2020-05-12] MEDS ORDERED: PT OWN MED DRAWER 7, Y5N ONE ×5 (06:20→22:11)
[2020-05-12] MEDS: QUINAPRIL HCL 10 MG TABLET (FP) PO SCH (09:29)
[2020-05-12] MEDS: ZIPRASIDONE 40 MG CAPSULE PO SCH ×2 (09:30→21:59)
[2020-05-12] MEDS: ANASTROZOLE 1 MG TABLET PO SCH (09:30)
[2020-05-12] MEDS: MUPIROCIN 2% TOPICAL OINTMENT 22 GM TUBE TP SCH ×2 (09:30→21:53)
[2020-05-12] MEDS: ENOXAPARIN SQ SCH ×2 (09:31→21:51)
[2020-05-12] MEDS: PANTOPRAZOLE 40 MG TABLET PO SCH (09:32)
[2020-05-12] MEDS: ZINC SULFATE 220 MG CAPSULE (FP) PO SCH ×2 (09:40→21:56)
--- NOTE | 2020-05-12 11:34 | PN ---
Progress Note (short form) - Note Progress Note: PULMONARY APPEARS IMPROVED REMAINS ON NASAL O2 VSS/AFEBRILE HESITANT IN SPEECH/NEURO EVAL REVIEWED Constitutional: Yes: No Distress Eyes: Yes: Conjunctiva Clear, EOM Intact, Cataracts HENT: Yes: Atraumatic, Normocephalic Neck: Yes: Supple, Trachea Midline Cardiovascular: Yes: Regular Rate and Rhythm Respiratory: Yes: Diminished, Dullness, On Nasal O2. No: Accessory Muscle Use, Rales, Rhonchi, SOB, SOB on Exertion, Stridor, Tachypnea, Wheezes ...Inspection: Yes: WNL ...Clubbing: No Gastrointestinal: Yes: Normal Bowel Sounds, Soft, Abdomen, Obese Renal/: Yes: WNL Musculoskeletal: Yes: WNL Extremities: Yes: WNL Edema: No Peripheral Pulses WNL: Yes Integumentary: Yes: WNL Neurological: Yes: WNL, Alert, Oriented ...Motor Strength: WNL Psychiatric: Yes: WNL, Alert, Oriented Labs: REVIEWED Chest X-ray: Report Reviewed, Image Reviewed Problem List - Problems (1) Abdominal pain Code(s): R10.9 - UNSPECIFIED ABDOMINAL PAIN Qualifiers: Abdominal location: generalized Qualified Code(s): R10.84 - Generalized abdominal pain (2) Nausea and vomiting Code(s): R11.2 - NAUSEA WITH VOMITING, UNSPECIFIED Qualifiers: Vomiting type: unspecified Vomiting Intractability: intractable Qualified Code(s): R11.2 - Nausea with vomiting, unspecified (3) Rectal bleeding Code(s): K62.5 - HEMORRHAGE OF ANUS AND RECTUM (4) ASHD (arteriosclerotic heart disease) Code(s): I25.10 - ATHSCL HEART DISEASE OF [place] CORONARY ARTERY W/O ANG PCTRS (5) Breast CA Code(s): C50.919 - MALIGNANT NEOPLASM OF UNSP SITE OF UNSPECIFIED FEMALE BREAST (6) COPD (chronic obstructive pulmonary disease) Code(s): J44.9 - CHRONIC OBSTRUCTIVE PULMONARY DISEASE, UNSPECIFIED Qualifiers: (7) COVID-19 virus infection Code(s): U07.1 - COVID POSITIVE (8) Chronic hypoxemic respiratory failure Code(s): J96.11 - CHRONIC RESPIRATORY FAILURE WITH HYPOXIA (9) Diabetes mellitus type 2, insulin dependent Code(s): E11.9 - TYPE 2 DIABETES MELLITUS WITHOUT COMPLICATIONS; Z79.4 - SMALL ARMS REPAIRER (CURRENT) USE OF INSULIN (10) History of pulmonary embolus (PE) Code(s): Z86.711 - PERSONAL HISTORY OF PULMONARY EMBOLISM (11) Hyperlipidemia Code(s): E78.5 - HYPERLIPIDEMIA, UNSPECIFIED Qualifiers: Hyperlipidemia type: pure hypercholesterolemia Qualified Code(s): E78.00 - Pure hypercholesterolemia, unspecified; E78.0 - Pure hypercholesterolemia (12) Hypertension Code(s): I10 - ESSENTIAL (PRIMARY) HYPERTENSION Qualifiers: Hypertension type: essential hypertension Qualified Code(s): I10 - Essential (primary) hypertension (13) Hypothyroidism Code(s): E03.9 - HYPOTHYROIDISM, UNSPECIFIED Qualifiers: (14) IDDM (insulin dependent diabetes mellitus) Code(s): [id number] - (15) Morbid obesity with BMI of 40.0-44.9, adult Code(s): E66.01 - MORBID (SEVERE) OBESITY DUE TO EXCESS CALORIES; Z68.41 - BODY MASS INDEX (BMI) 40.0-44.9, ADULT (16) Obstructive sleep apnea on CPAP Code(s): G47.33 - OBSTRUCTIVE SLEEP APNEA (ADULT) (PEDIATRIC) (17) Schizoaffective disorder, bipolar type Code(s): F25.0 - SCHIZOAFFECTIVE DISORDER, BIPOLAR TYPE (18) Status post repair of ventral hernia Code(s): Z98.890 - OTHER SPECIFIED POSTPROCEDURAL STATES; Z87.19 - PERSONAL HISTORY OF OTHER DISEASES OF THE DIGESTIVE SYSTEM Stable resp status There is no Pulmonary contraindication for discharge MRI suggested by evelyn FINNEY MD
--- NOTE | 2020-05-12 13:06 | PN ---
Progress Note (short form) - Note Progress Note: no distress forgetful Neurology eval appreciated-- pt ca not fit into the MRI machine here CT head- negative Vital Signs - 24 hr 05/11/20 05/11/20 05/11/20 18:00 21:00 23:00 Temperature 97.7 F 98.1 F Pulse Rate 78 84 Respiratory 18 20 Rate Blood Pressure 146/91 145/81 O2 Sat by Pulse 96 Oximetry (%) 05/12/20 05/12/20 05/12/20 05:48 09:00 10:00 Temperature 98.3 F 97.7 F Pulse Rate 69 86 Respiratory 20 19 Rate Blood Pressure 135/75 115/71 O2 Sat by Pulse 94 L Oximetry (%) 05/12/20 13:54 Temperature 97.7 F Pulse Rate 83 Respiratory 20 Rate Blood Pressure 146/91 O2 Sat by Pulse Oximetry (%) Current Medications Generic Name Dose Route Start Last Admin Trade Name Freq PRN Reason Stop Dose Admin Albuterol Sulfate 1 puff 05/04/20 15:47 05/11/20 21:56 Ventolin Hfa Inhaler - IH 1 puff Q4H PRN Administration SHORT OF BREATH/WHEEZING Anastrozole 1 mg 05/05/20 10:00 05/12/20 09:30 Arimidex - PO 1 mg DAILY ANDREA Administration Buspirone HCl 10 mg/ Buspirone 15 mg 05/09/20 06:00 05/12/20 13:57 HCl 5 mg PO 15 mg TID ANDREA Administration Enoxaparin Sodium 120 mg/ 160 mg 05/08/20 22:00 05/12/20 09:31 Enoxaparin Sodium 40 mg SQ 160 mg BID ANDREA Administration Gabapentin 100 mg 05/04/20 22:00 05/12/20 13:57 Neurontin - PO 100 mg TID ANDREA Administration Insulin Aspart 1 vial 05/04/20 16:30 05/12/20 10:57 Novolog Vial Sliding Scale - SQ 3 units ACHS ANDREA Administration Protocol Insulin Detemir 10 units 05/04/20 22:00 05/11/20 21:40 Levemir Vial SQ 10 units HS ANDREA Administration Levothyroxine Sodium 200 mcg 05/05/20 07:00 05/12/20 06:13 Synthroid - PO 200 mcg DAILY@0700 ANDREA Administration Metoclopramide HCl 5 mg 05/05/20 18:15 05/12/20 10:52 Reglan - PO 5 mg TIDAC ANDREA Administration Mupirocin 1 applic 05/10/20 12:30 05/12/20 09:30 Bactroban 2% Ointment - TP 1 applic BID ANDREA Administration Ondansetron HCl 8 mg 05/04/20 15:52 05/05/20 11:02 Zofran Injection IVPB 8 mg Q8H PRN Administration NAUSEA Pantoprazole Sodium 40 mg 05/05/20 18:15 05/12/20 09:32 Protonix - PO 40 mg DAILY ANDREA Administration Quetiapine Fumarate 800 mg 05/04/20 22:00 05/11/20 21:39 Seroquel - PO 800 mg HS ANDREA Administration Quinapril HCl 10 mg 05/05/20 10:00 05/12/20 09:29 Accupril - PO 10 mg DAILY ANDREA Administration Rosuvastatin Calcium 10 mg 05/04/20 22:00 05/11/20 21:35 Crestor - PO 10 mg HS ANDREA Administration Warfarin Sodium 9 mg 05/10/20 18:00 05/11/20 17:20 Coumadin - PO 9 mg DAILY@1800 ANDREA Administration Zinc Sulfate 220 mg 05/04/20 22:00 05/12/20 09:40 Orazinc - PO Not Given BID ANDREA Ziprasidone 40 mg 05/09/20 10:00 05/12/20 09:30 Geodon - PO 40 mg BID ANDREA Administration Laboratory Results - last 24 hr 05/11/20 05/11/20 05/12/20 16:32 21:32 06:12 POC Glucometer 149 220 140 05/12/20 10:55 POC Glucometer 163 S1 S2 RRR Lungs clear Abd- soft,NT, obese Trace edema PLAN continue with coumadin on Lovenox therapy continue with meds on PPI add Mupirocin ointment dc planning-- will see if insurance covers lovenox Problem List - Problems (1) Abdominal pain Code(s): R10.9 - UNSPECIFIED ABDOMINAL PAIN Qualifiers: Abdominal location: generalized Qualified Code(s): R10.84 - Generalized abdominal pain (2) Nausea and vomiting Code(s): R11.2 - NAUSEA WITH VOMITING, UNSPECIFIED Qualifiers: Vomiting type: unspecified Vomiting Intractability: intractable Qualified Code(s): R11.2 - Nausea with vomiting, unspecified (3) ASHD (arteriosclerotic heart disease) Code(s): I25.10 - ATHSCL HEART DISEASE OF [place] CORONARY ARTERY W/O ANG PCTRS (4) COPD (chronic obstructive pulmonary disease) Code(s): J44.9 - CHRONIC OBSTRUCTIVE PULMONARY DISEASE, UNSPECIFIED Qualifiers:
[2020-05-12 15:19] LABS: INR 1.46 (0.83-1.09); PROTHROMBIN TIME (PATIENT) 17.3 SEC (9.7-13.0)
[2020-05-12] MEDS: WARFARIN NA 3 MG TABLET PO SCH (17:07)
[2020-05-12] MEDS: ROSUVASTATIN CA 10 MG TABLET (FP) PO SCH (21:51)
[2020-05-12] MEDS: QUEtiapine FUMARATE 200 MG TABLET PO SCH (21:52)
[2020-05-12] MEDS: INSULIN (LEVEMIR) 100 UNITS/ML UNITS SQ SCH (21:53)
[2020-05-13] MEDS ORDERED: PT OWN MED DRAWER 7, Y5N ONE ×5 (06:18→21:35)
[2020-05-13] MEDS: BUSPIRONE HCL 10 MG, BUSPIRONE HCL 5 MG PO SCH ×3 (06:20→21:38)
[2020-05-13] MEDS: METOCLOPRAMIDE HCL 10 MG TABLET (FP) PO SCH ×3 (06:21→16:30)
[2020-05-13] MEDS: LEVOTHYROXINE NA 200 MCG TABLET PO SCH (06:22)
[2020-05-13] MEDS: GABAPENTIN 100 MG CAPSULE PO SCH ×3 (06:22→21:41)
[2020-05-13] MEDS: INSULIN SLIDING SCALE (NOVOLOG) 1 VIAL SQ SCH ×4 (06:24→21:43)
[2020-05-13 07:07] LABS: INR 1.77 (0.83-1.09)
[2020-05-13] MEDS: ENOXAPARIN SQ SCH ×2 (10:12→21:40)
[2020-05-13] MEDS: QUINAPRIL HCL 10 MG TABLET (FP) PO SCH (10:14)
[2020-05-13] MEDS: ZINC SULFATE 220 MG CAPSULE (FP) PO SCH ×2 (10:15→21:43)
[2020-05-13] MEDS: PANTOPRAZOLE 40 MG TABLET PO SCH (10:15)
[2020-05-13] MEDS: ANASTROZOLE 1 MG TABLET PO SCH (10:15)
[2020-05-13] MEDS: MUPIROCIN 2% TOPICAL OINTMENT 22 GM TUBE TP SCH ×2 (10:21→21:45)
[2020-05-13] MEDS: ZIPRASIDONE 40 MG CAPSULE PO SCH ×2 (10:21→21:39)
[2020-05-13] MEDS: ALBUTEROL SO4 HFA INHALER IH PRN (10:23)
--- NOTE | 2020-05-13 11:57 | PN ---
Progress Note (short form) - Note Progress Note: PULMONARY APPEARS IMPROVED REMAINS ON NASAL O2/95% ON 3L/M VSS/AFEBRILE Constitutional: Yes: No Distress Eyes: Yes: Conjunctiva Clear, EOM Intact, Cataracts HENT: Yes: Atraumatic, Normocephalic Neck: Yes: Supple, Trachea Midline Cardiovascular: Yes: Regular Rate and Rhythm Respiratory: Yes: Diminished, Dullness, On Nasal O2. No: Accessory Muscle Use, Rales, Rhonchi, SOB, SOB on Exertion, Stridor, Tachypnea, Wheezes ...Inspection: Yes: WNL ...Clubbing: No Gastrointestinal: Yes: Normal Bowel Sounds, Soft, Abdomen, Obese Renal/: Yes: WNL Musculoskeletal: Yes: WNL Extremities: Yes: WNL Edema: No Peripheral Pulses WNL: Yes Integumentary: Yes: WNL Neurological: Yes: WNL, Alert, Oriented ...Motor Strength: WNL Psychiatric: Yes: WNL, Alert, Oriented Labs: REVIEWED Chest X-ray: Report Reviewed, Image Reviewed Problem List - Problems (1) Abdominal pain Code(s): R10.9 - UNSPECIFIED ABDOMINAL PAIN Qualifiers: Abdominal location: generalized Qualified Code(s): R10.84 - Generalized abdominal pain (2) Nausea and vomiting Code(s): R11.2 - NAUSEA WITH VOMITING, UNSPECIFIED Qualifiers: Vomiting type: unspecified Vomiting Intractability: intractable Qualified Code(s): R11.2 - Nausea with vomiting, unspecified (3) Rectal bleeding Code(s): K62.5 - HEMORRHAGE OF ANUS AND RECTUM (4) ASHD (arteriosclerotic heart disease) Code(s): I25.10 - ATHSCL HEART DISEASE OF [place] CORONARY ARTERY W/O ANG PCTRS (5) Breast CA Code(s): C50.919 - MALIGNANT NEOPLASM OF UNSP SITE OF UNSPECIFIED FEMALE BREAST (6) COPD (chronic obstructive pulmonary disease) Code(s): J44.9 - CHRONIC OBSTRUCTIVE PULMONARY DISEASE, UNSPECIFIED Qualifiers: (7) COVID-19 virus infection Code(s): U07.1 - COVID POSITIVE (8) Chronic hypoxemic respiratory failure Code(s): J96.11 - CHRONIC RESPIRATORY FAILURE WITH HYPOXIA (9) Diabetes mellitus type 2, insulin dependent Code(s): E11.9 - TYPE 2 DIABETES MELLITUS WITHOUT COMPLICATIONS; Z79.4 - [place] (CURRENT) USE OF INSULIN (10) History of pulmonary embolus (PE) Code(s): Z86.711 - PERSONAL HISTORY OF PULMONARY EMBOLISM (11) Hyperlipidemia Code(s): E78.5 - HYPERLIPIDEMIA, UNSPECIFIED Qualifiers: Hyperlipidemia type: pure hypercholesterolemia Qualified Code(s): E78.00 - Pure hypercholesterolemia, unspecified; E78.0 - Pure hypercholesterolemia (12) Hypertension Code(s): I10 - ESSENTIAL (PRIMARY) HYPERTENSION Qualifiers: Hypertension type: essential hypertension Qualified Code(s): I10 - Essential (primary) hypertension (13) Hypothyroidism Code(s): E03.9 - HYPOTHYROIDISM, UNSPECIFIED Qualifiers: (14) IDDM (insulin dependent diabetes mellitus) Code(s): [id number] - (15) Morbid obesity with BMI of 40.0-44.9, adult Code(s): E66.01 - MORBID (SEVERE) OBESITY DUE TO EXCESS CALORIES; Z68.41 - BODY MASS INDEX (BMI) 40.0-44.9, ADULT (16) Obstructive sleep apnea on CPAP Code(s): G47.33 - OBSTRUCTIVE SLEEP APNEA (ADULT) (PEDIATRIC) (17) Schizoaffective disorder, bipolar type Code(s): F25.0 - SCHIZOAFFECTIVE DISORDER, BIPOLAR TYPE (18) Status post repair of ventral hernia Code(s): Z98.890 - OTHER SPECIFIED POSTPROCEDURAL STATES; Z87.19 - PERSONAL HISTORY OF OTHER DISEASES OF THE DIGESTIVE SYSTEM Stable resp status There is no Pulmonary contraindication for discharge MRI suggested by evelyn FINNEY MD
--- NOTE | 2020-05-13 16:43 | PN ---
Progress Note (short form) - Note Progress Note: no distress forgetful Neurology eval appreciated-- pt can not fit into the MRI machine here CT head- negative Vital Signs - 24 hr 05/12/20 05/12/20 05/12/20 17:55 20:01 20:10 Temperature 97.8 F 97.7 F Pulse Rate 75 92 H Respiratory 20 20 Rate Blood Pressure 136/79 140/82 O2 Sat by Pulse 95 Oximetry (%) 05/13/20 05/13/20 05/13/20 04:00 09:00 11:03 Temperature 97.5 F L 98.3 F Pulse Rate 76 82 Respiratory 20 19 Rate Blood Pressure 118/69 144/87 O2 Sat by Pulse 95 Oximetry (%) 05/13/20 13:54 Temperature 97.6 F Pulse Rate 88 Respiratory 20 Rate Blood Pressure 129/90 O2 Sat by Pulse Oximetry (%) Current Medications Generic Name Dose Route Start Last Admin Trade Name Freq PRN Reason Stop Dose Admin Albuterol Sulfate 1 puff 05/04/20 15:47 05/13/20 10:23 Ventolin Hfa Inhaler - IH 1 puff Q4H PRN Administration SHORT OF BREATH/WHEEZING Anastrozole 1 mg 05/05/20 10:00 05/13/20 10:15 Arimidex - PO 1 mg DAILY ANDREA Administration Buspirone HCl 10 mg/ Buspirone 15 mg 05/09/20 06:00 05/13/20 14:12 HCl 5 mg PO 15 mg TID ANDREA Administration Enoxaparin Sodium 120 mg/ 160 mg 05/08/20 22:00 05/13/20 10:12 Enoxaparin Sodium 40 mg SQ 160 mg BID ANDREA Administration Gabapentin 100 mg 05/04/20 22:00 05/13/20 14:13 Neurontin - PO 100 mg TID ANDREA Administration Insulin Aspart 1 vial 05/04/20 16:30 05/13/20 16:29 Novolog Vial Sliding Scale - SQ Not Given ACHS [facility] Protocol Insulin Detemir 10 units 05/04/20 22:00 05/12/20 21:53 Levemir Vial SQ 10 units HS ANDREA Administration Levothyroxine Sodium 200 mcg 05/05/20 07:00 05/13/20 06:22 Synthroid - PO 200 mcg DAILY@0700 ANDREA Administration Metoclopramide HCl 5 mg 05/05/20 18:15 05/13/20 16:30 Reglan - PO 5 mg TIDAC ANDREA Administration Mupirocin 1 applic 05/10/20 12:30 05/13/20 10:21 Bactroban 2% Ointment - TP 1 applic BID ANDREA Administration Ondansetron HCl 8 mg 05/04/20 15:52 05/05/20 11:02 Zofran Injection IVPB 8 mg Q8H PRN Administration NAUSEA Pantoprazole Sodium 40 mg 05/05/20 18:15 05/13/20 10:15 Protonix - PO 40 mg DAILY ANDREA Administration Quetiapine Fumarate 800 mg 05/04/20 22:00 05/12/20 21:52 Seroquel - PO 800 mg HS ANDREA Administration Quinapril HCl 10 mg 05/05/20 10:00 05/13/20 10:14 Accupril - PO 10 mg DAILY ANDREA Administration Rosuvastatin Calcium 10 mg 05/04/20 22:00 05/12/20 21:51 Crestor - PO 10 mg HS ANDREA Administration Warfarin Sodium 9 mg 05/10/20 18:00 05/12/20 17:07 Coumadin - PO 9 mg DAILY@1800 ANDREA Administration Zinc Sulfate 220 mg 05/04/20 22:00 05/13/20 10:15 Orazinc - PO Not Given BID ANDREA Ziprasidone 40 mg 05/09/20 10:00 05/13/20 10:21 Geodon - PO 40 mg BID ANDREA Administration Laboratory Results - last 24 hr 05/12/20 05/12/20 05/13/20 16:55 21:03 06:14 PT with INR INR POC Glucometer 121 159 167 05/13/20 05/13/20 05/13/20 06:35 10:58 16:28 PT with INR 21.00 H INR 1.77 H POC Glucometer 208 138 S1 S2 RRR Lungs clear Abd- soft,NT, obese Trace edema PLAN continue with coumadin on Lovenox therapy continue with meds on PPI add Mupirocin ointment dc planning-- will see if insurance covers lovenox Problem List - Problems (1) Abdominal pain Code(s): R10.9 - UNSPECIFIED ABDOMINAL PAIN Qualifiers: Abdominal location: generalized Qualified Code(s): R10.84 - Generalized abdominal pain (2) Nausea and vomiting Code(s): R11.2 - NAUSEA WITH VOMITING, UNSPECIFIED Qualifiers: Vomiting type: unspecified Vomiting Intractability: intractable Qualified Code(s): R11.2 - Nausea with vomiting, unspecified (3) ASHD (arteriosclerotic heart disease) Code(s): I25.10 - ATHSCL HEART DISEASE OF [place] CORONARY ARTERY W/O ANG PCTRS (4) COPD (chronic obstructive pulmonary disease) Code(s): J44.9 - CHRONIC OBSTRUCTIVE PULMONARY DISEASE, UNSPECIFIED Qualifiers:
[2020-05-13] MEDS: WARFARIN NA 3 MG TABLET PO SCH (17:05)
[2020-05-13] MEDS: QUEtiapine FUMARATE 200 MG TABLET PO SCH (21:40)
[2020-05-13] MEDS: ROSUVASTATIN CA 10 MG TABLET (FP) PO SCH (21:41)
[2020-05-13] MEDS: INSULIN (LEVEMIR) 100 UNITS/ML UNITS SQ SCH (21:41)
[2020-05-14] MEDS: ALBUTEROL SO4 HFA INHALER IH PRN (00:37)
[2020-05-14] MEDS ORDERED: PT OWN MED DRAWER 7, Y5N ONE (06:14)
[2020-05-14] MEDS: LEVOTHYROXINE NA 200 MCG TABLET PO SCH (06:19)
[2020-05-14] MEDS: GABAPENTIN 100 MG CAPSULE PO SCH ×2 (06:19→13:07)
[2020-05-14] MEDS: METOCLOPRAMIDE HCL 10 MG TABLET (FP) PO SCH ×2 (06:19→10:39)
[2020-05-14] MEDS: INSULIN SLIDING SCALE (NOVOLOG) 1 VIAL SQ SCH ×2 (06:19→11:43)
[2020-05-14] MEDS: BUSPIRONE HCL 10 MG, BUSPIRONE HCL 5 MG PO SCH ×2 (06:20→13:07)
[2020-05-14 08:26] LABS: PROTHROMBIN TIME (PATIENT) 23.8 SEC (9.7-13.0)
--- NOTE | 2020-05-14 10:08 | PN ---
Progress Note (short form) - Note Progress Note: PULMONARY Denies shortness of breath, cough or wheezing. Vital Signs Period Temp Pulse Resp BP Sys/Barclay Pulse Ox Last 24 Hr 97.6 F-98.3 F 72-88 19-20 107-144/63-90 96 Gen: NAD at rest Heart: RRR Lung: decreased breath sounds at the bases Abd: soft, nontender Ext: no edema CBC, BMP 05/10/20 06:37 05/09/20 06:45 Active Medications Albuterol Sulfate (Ventolin Hfa Inhaler -) 1 puff IH Q4H PRN PRN Reason: SHORT OF BREATH/WHEEZING Last Admin: 05/14/20 00:37 Dose: 1 puff Documented by: Anastrozole (Arimidex -) 1 mg PO DAILY [facility] Last Admin: 05/13/20 10:15 Dose: 1 mg Documented by: Buspirone HCl 10 mg/ Buspirone (HCl 5 mg) 15 mg PO TID [facility] Last Admin: 05/14/20 06:20 Dose: 15 mg Documented by: Enoxaparin Sodium 120 mg/ (Enoxaparin Sodium 40 mg) 160 mg SQ BID [facility] Last Admin: 05/13/20 21:40 Dose: 160 mg Documented by: Gabapentin (Neurontin -) 100 mg PO TID [facility] Last Admin: 05/14/20 06:19 Dose: 100 mg Documented by: Insulin Aspart (Novolog Vial Sliding Scale -) 1 vial SQ [facility]; Protocol Last Admin: 05/14/20 06:19 Dose: 3 units Documented by: Insulin Detemir (Levemir Vial) [address] [facility] Last Admin: 05/13/20 21:41 Dose: 10 units Documented by: Levothyroxine Sodium (Synthroid -) 200 mcg PO DAILY@0700 [facility] Last Admin: 05/14/20 06:19 Dose: 200 mcg Documented by: Metoclopramide HCl (Reglan -) 5 mg PO TIDAC [facility] Last Admin: 05/14/20 06:19 Dose: 5 mg Documented by: Mupirocin (Bactroban 2% Ointment -) 1 applic TP BID [facility] Last Admin: 05/13/20 21:45 Dose: 1 applic Documented by: Ondansetron HCl (Zofran Injection) 8 mg IVPB Q8H PRN PRN Reason: NAUSEA Last Admin: 05/05/20 11:02 Dose: 8 mg Documented by: Pantoprazole Sodium (Protonix -) 40 mg PO DAILY [facility] Last Admin: 05/13/20 10:15 Dose: 40 mg Documented by: Quetiapine Fumarate (Seroquel -) 800 mg PO HS [facility] Last Admin: 05/13/20 21:40 Dose: 800 mg Documented by: Quinapril HCl (Accupril -) 10 mg PO DAILY [facility] Last Admin: 05/13/20 10:14 Dose: 10 mg Documented by: Rosuvastatin Calcium (Crestor -) 10 mg PO HS [facility] Last Admin: 05/13/20 21:41 Dose: 10 mg Documented by: Warfarin Sodium (Coumadin -) 9 mg PO DAILY@1800 [facility] Last Admin: 05/13/20 17:05 Dose: 9 mg Documented by: Zinc Sulfate (Orazinc -) 220 mg PO BID [facility] Last Admin: 05/13/20 21:43 Dose: Not Given Documented by: Ziprasidone (Geodon -) 40 mg PO BID [facility] Last Admin: 05/13/20 21:39 Dose: 40 mg Documented by: A/P s/p Pancreatic Stent removal COPD Chronic Hypoxic Respiratory Failure Severe SHELL h/o PE HTN DM Hyperlipidemia Morbid Obesity Schizoaffective Disorder h/o Breast Ca Recent COVID19 - inhaled bronchodilators - O2 to keep Spo2 >90% - continue anticoagulation - outpt f/u with Dr Hemphill
[2020-05-14] MEDS: ENOXAPARIN SQ SCH (10:37)
[2020-05-14] MEDS: QUINAPRIL HCL 10 MG TABLET (FP) PO SCH (10:38)
[2020-05-14] MEDS: ANASTROZOLE 1 MG TABLET PO SCH (10:38)
[2020-05-14] MEDS: MUPIROCIN 2% TOPICAL OINTMENT 22 GM TUBE TP SCH (10:38)
[2020-05-14] MEDS: ZINC SULFATE 220 MG CAPSULE (FP) PO SCH (10:39)
[2020-05-14] MEDS: PANTOPRAZOLE 40 MG TABLET PO SCH (10:39)
[2020-05-14] MEDS: ZIPRASIDONE 40 MG CAPSULE PO SCH (10:40)
[2020-05-14] MEDS ORDERED: INSULIN (NOVOLOG) ASPART 100 UNITS/ML 10ML VIAL ONE (11:42)
[2020-05-14 13:30] VITALS: BP 136/95; PULSE 84; TEMP 97.3
--- NOTE | 2020-05-14 15:24 | DS ---
Physical Examination Vital Signs: Vital Signs Temperature 97.3 F L 05/14/20 13:29 Pulse Rate 84 05/14/20 13:29 Respiratory Rate 20 05/14/20 13:29 Blood Pressure 136/95 05/14/20 13:29 O2 Sat by Pulse Oximetry (%) 96 05/14/20 09:00 Findings/Remarks: awake/ comfortable no complains wants to go home chart is reviewed Constitutional: Yes: No Distress, Obese Neck: Yes: Supple Cardiovascular: Yes: Regular Rate and Rhythm Respiratory: Yes: CTA Bilaterally Gastrointestinal: Yes: Soft, Abdomen, Obese Edema: No Neurological: Yes: Alert Psychiatric: Yes: Alert Labs: CBC, BMP 05/10/20 06:37 05/09/20 06:45 Discharge Summary Problems reviewed: Yes Reason For Visit: NAUSEA AND VOMITING Current Active Problems Abdominal pain (Acute) Dysarthria (Acute) Nausea and vomiting (Acute) Rectal bleeding (Acute) Supratherapeutic INR (Acute) Hospital Course: Admitted for N/V -Gastroparesis ct abd -ok better with meds During hospitalization -- old pancreatic stent removed . stable for d/c with close monitoring in office for inr and regular check up she also to follow with her specialists meds reconcilled f/u in office 2 days pt in agreement INR therapeutic-- NO need for Lovenox -- Explained to pt All above d/w RN also d/w assistant case manager also Meds reconcilled pt in agreement Condition: Stable - Instructions Referrals: Lex Hemphill MD [Staff Physician] - Disposition: HOME - Home Medications Comprehensive Discharge Medication List: Ambulatory Orders Buspirone HCl [Buspar] 15 mg PO TID 03/20/14 Anastrozole [Arimidex -] 1 mg PO DAILY #0 12/06/16 Gabapentin [Neurontin -] 100 mg PO Q8H #0 12/06/16 Insulin (Novolog) [Novolog Flexpen -] 0 units SQ ASDIR #0 12/06/16 Quetiapine Fumarate [Seroquel -] 800 mg PO HS #0 12/06/16 Quinapril HCl [Accupril -] 10 mg PO DAILY #0 12/06/16 Albuterol 0.083% Nebulizer Blaire [Ventolin 0.083% Nebulizer Soln -] 1 amp NEB Q4H PRN amp 09/28/17 Albuterol 0.083% Nebulizer Blaire [Ventolin 0.083% Nebulizer Soln -] 1 amp NEB Q4H PRN amp 08/26/19 Insulin Sliding Scale [Novolog Vial Sliding Scale -] 1 vial SQ TIDAC units Levothyroxine [Synthroid -] 200 mcg PO DAILY@0700 tablet 08/26/19 Buspirone HCl 15 mg PO TID 03/04/20 Lorazepam [Ativan] 1 mg PO HS PRN 03/05/20 Rosuvastatin Calcium [Crestor] 10 mg PO DAILY 03/05/20 Ziprasidone [Geodon -] 40 mg PO BID 03/05/20 Ascorbic Acid [Vitamin C] 2,000 mg PO BID #60 tablet 03/08/20 Zinc Sulfate [Orazinc -] 220 mg PO BID #30 capsule 03/08/20 Insulin (Levemir) [Levemir Vial] 10 units SQ BID@0700,2200 05/07/20 Warfarin Na [Coumadin -] 8 tab PO DAILY 05/07/20 Pantoprazole Sodium [Protonix -] 40 mg PO DAILY #30 tablet.ec 05/10/20 Insulin Sliding Scale [Novolog Vial Sliding Scale -] 1 vial SQ ACHS units 05/14/20 Metoclopramide HCl [Reglan -] 5 mg PO TIDAC #90 tablet 05/14/20
== END 2020-05-14 16:31 | disposition home or self-care (01) | DRG 919 ==
LOC: JER 11:10 → JERBED 14:58 → J7W 16:23
PROVIDERS: ADMIT Internal Medicine; ATTEND Internal Medicine
PROC: 0FPD8DZ Removal of Intraluminal Device from Pancreatic Duct, Via Natural or Artificial Opening Endoscopic (ICD-10-PCS; principal; 2020-05-09 13:30)
DX: T85.898A Other specified complication of other internal prosthetic devices, implants and grafts, initial encounter (principal); K29.01 Acute gastritis with bleeding; Z68.43 Body mass index [BMI] 50.0-59.9, adult; I45.2 Bifascicular block; J96.11 Chronic respiratory failure with hypoxia; E11.43 Type 2 diabetes mellitus with diabetic autonomic (poly)neuropathy; K31.84 Gastroparesis; J44.9 Chronic obstructive pulmonary disease, unspecified; E66.01 Morbid (severe) obesity due to excess calories; R10.9 Unspecified abdominal pain; R79.1 Abnormal coagulation profile; E03.9 Hypothyroidism, unspecified; N63.0 Unspecified lump in unspecified breast; G47.33 Obstructive sleep apnea (adult) (pediatric); Y83.9 Surgical procedure, unspecified as the cause of abnormal reaction of the patient, or of later complication, without mention of misadventure at the time of the procedure; F25.9 Schizoaffective disorder, unspecified; E78.5 Hyperlipidemia, unspecified; I25.10 Atherosclerotic heart disease of native coronary artery without angina pectoris; K44.9 Diaphragmatic hernia without obstruction or gangrene
CPT/HCPCS: 36415; 70450-TC; 71045-TC-FY; 74176-TC; 80053; 81003; 82248; 82550; 82553; 82962; 83036; 83605; 83690; 83735; 84100; 84443; 84484; 85025; 85027; 85610; 85730; 86850; 86900; 86901; 87040; 87086; 88300-TC; 93005; 93010; 99285-25; U0003

== ENCOUNTER 2020-07-05 21:49 | Inpatient (IN) | payer OTHER, MEDICARE ==
--- NOTE | 2020-07-05 22:13 | PDOC ---
History of Present Illness - General Chief Complaint: Pain, Acute Stated Complaint: LOWER ABD PAIN Time Seen by Provider: 07/05/20 22:10 History Source: Patient Exam Limitations: No Limitations - History of Present Illness Initial Comments: 07/05/20 22:12 64 yo F w a hx of IDDM, pancreatitis, copd on 3L O2, htn, hld, schizoaffective disorder, seizures, obesity, sleep apnea (uses cpap at night with 3L NC O2), breast ca s/p lumpectomy/chemo/radiation who presents w 3d persistent severe RLQ pain and nausea. PCP Bulmaro diagnosed pt w UTI earlier today in clinic, started taking antibiotic w/o relief. Pt didnt take any meds for pain. Denies fever, vomiting, dysuria, diarrhea/constipation. Last admitted from 05/04- for lower ABD pain and intractable vomiting attributed to gastroparesis, old pancreatic stent removed. Past History - Medical History Allergies/Adverse Reactions: Allergies Allergy/AdvReac Type Severity Reaction Status Date / Time acetaminophen [From Tylenol] Allergy "VOMITS" Verified 03/29/20 13:18 almond oil Allergy "ITCHY" Verified 03/29/20 13:18 citalopram hydrobromide Allergy "STROKE Verified 03/29/20 13:18 [From Celexa] LIKE SYMPTOMS" divalproex sodium Allergy "PANCREATIT Verified 03/29/20 13:18 [From Depakote] IS" Iodinated Contrast Media Allergy Verified 03/29/20 13:18 [Iodinated Contrast Media - IV Dye] lamotrigine [From Lamictal] Allergy "FACE Verified 03/29/20 13:18 SWELLS" lithium [[place]] Allergy "SEIZURES,SWOLLEN Verified 03/29/20 13:18 ARMS/LEGS" meperidine HCl [From Demerol] Allergy "TURNS RED Verified 03/29/20 13:18 WHEN MIXED WITH NOVACAINE" shellfish derived Allergy "TURNED Verified 03/29/20 13:18 RED /ITCHY" sulfamethoxazole Allergy "COLLAPSED, Verified 03/29/20 13:18 [From Bactrim] HEART ISSUE" topiramate [From Topamax] Allergy TO Verified 03/29/20 13:18 POISONOUS LEVELS" trimethoprim [From Bactrim] Allergy "COLLAPSED,HEART Verified 03/29/20 13:18 ISSUE" Home Medications: Ambulatory Orders Buspirone HCl [Buspar] 15 mg PO TID 03/20/14 Anastrozole [Arimidex -] 1 mg PO DAILY #0 12/06/16 Gabapentin [Neurontin -] 100 mg PO Q8H #0 12/06/16 Insulin (Novolog) [Novolog Flexpen -] 0 units SQ ASDIR #0 12/06/16 Quetiapine Fumarate [Seroquel -] 800 mg PO HS #0 12/06/16 Quinapril HCl [Accupril -] 10 mg PO DAILY #0 12/06/16 Albuterol 0.083% Nebulizer Blaire [Ventolin 0.083% Nebulizer Soln -] 1 amp NEB Q4H PRN amp 09/28/17 Albuterol 0.083% Nebulizer Blaire [Ventolin 0.083% Nebulizer Soln -] 1 amp NEB Q4H PRN amp 08/26/19 Insulin Sliding Scale [Novolog Vial Sliding Scale -] 1 vial SQ TIDAC units 08/26/19 Levothyroxine [Synthroid -] 200 mcg PO DAILY@0700 tablet 08/26/19 Buspirone HCl 15 mg PO TID 03/04/20 Lorazepam [Ativan] 1 mg PO HS PRN 03/05/20 Rosuvastatin Calcium [Crestor] 10 mg PO DAILY 03/05/20 Ziprasidone [Geodon -] 40 mg PO BID 03/05/20 Ascorbic Acid [Vitamin C] 2,000 mg PO BID #60 tablet 03/08/20 Zinc Sulfate [Orazinc -] 220 mg PO BID #30 capsule 03/08/20 Insulin (Levemir) [Levemir Vial] 10 units SQ BID@0700,2200 05/07/20 Warfarin Na [Coumadin -] 8 tab PO DAILY 05/07/20 Pantoprazole Sodium [Protonix -] 40 mg PO DAILY #30 tablet.ec 05/10/20 Insulin Sliding Scale [Novolog Vial Sliding Scale -] 1 vial SQ ACHS units 05/14/20 Metoclopramide HCl [Reglan -] 5 mg PO TIDAC #90 tablet 05/14/20 Anemia: No Asthma: No Cancer: Yes (Left Breast s/p lumpectomy) Cardiac Disorders: No CVA: No COPD: Yes CHF: No Dementia: No Diabetes: Yes GI Disorders: No Disorders: No HTN: Yes Hypercholesterolemia: Yes Liver Disease: No Psychiatric Problems: (SCHIZOEFFECTIVE) Seizures: No Thyroid Disease: Yes (hypothyroid) - Surgical History Abdominal Surgery: No Appendectomy: No Cardiac Surgery: No Cholecystectomy: No Lung Surgery: No Neurologic Surgery: No Orthopedic Surgery: No - Immunization History Immunization Up to Date: No - Psycho-Social/Smoking History Smoking Status: Yes Smoking History: Former smoker Have you smoked in the past 12 months: No Number of Cigarettes Smoked Daily: 20 If you are a former smoker, when did you quit?: 3 yrs ago Information on smoking cessation initiated: No 'Breaking Loose' booklet given: 12/03/16 - Substance Abuse Hx (Audit-C & DAST Scrn) How often the patient has a drink containing alcohol: Never Score: In Men: 4 or > Positive; In Women: 3 or > Positive: 0 Screen Result (Pos requires Nsg. Audit-10AR): Negative In the last yr the pt used illegal drug/Rx for NonMed reason: No Score: Yes response is considered Positive: 0 Screen Result (Positive result requires Nsg. DAST-10): Negative Review of Systems - Review of Systems Constitutional: No: Chills, Fever HEENTM: No: Eye Pain, Nose Pain Respiratory: No: Cough, Shortness of Breath Cardiac (ROS): No: Chest Pain, Lightheadedness ABD/GI: Yes: Nausea. No: Abdominal Distended, Constipated, Diarrhea, Vomiting : No: Burning, Dysuria Musculoskeletal: No: Back Pain, Joint Pain Integumentary: No: Bruising, Dryness Neurological: No: Headache, Seizure Psychiatric: No: Anxiety, Depression Endocrine: No: Intolerance to Cold, Intolerance to Heat Hematologic/Lymphatic: No: Anemia, Blood Clots *Physical Exam - Vital Signs Last Vital Signs Temp Pulse Resp BP Pulse Ox 98.5 F 95 H 19 181/163 H 97 07/05/20 21:50 07/05/20 21:50 07/05/20 21:50 07/05/20 21:50 07/05/20 21:50 - Physical Exam General Appearance: Yes: Nourished, Appropriately Dressed, Moderate Distress, Obese HEENT: positive: EOMI, CLARISSA, Normal Voice, Hearing Grossly Normal. negative: Scleral Icterus (R), Scleral Icterus (L) Respiratory/Chest: positive: Lungs Clear, Normal Breath Sounds. negative: Chest Tender, Respiratory Distress Cardiovascular: positive: Regular Rhythm, Regular Rate, S1, S2. negative: Edema, Murmur Gastrointestinal/Abdominal: positive: Normal Bowel Sounds, Tender (mild RLQ, R flank), Flat, Soft. negative: Distended Integumentary: positive: Normal Color, Warm, Rash (dry flaking skin BLE). negative: Swelling Neurologic: positive: Fully Oriented, Alert, Normal Mood/Affect, Normal Response ED Treatment Course - LABORATORY CBC & Chemistry Diagram: 07/05/20 22:45 07/05/20 22:45 Medical Decision Making - Medical Decision Making 07/05/20 23:17 CT A/P - no sign of appendicitis or kidney stone, tiny hyperdense L renal cyst EKG - NSR, L ant fascicular block, LVH, HR 81, QTc 483, no ST changes WBC 12 --- 64 yo F w a hx of IDDM, pancreatitis, copd on 3L O2, htn, hld, schizoaffective disorder, seizures, obesity, sleep apnea (night cpap), on coumadin, breast ca s/p lumpectomy/chemo/radiation who presents w 3d persistent severe RLQ pain and nausea d/t UTI. No sign of kidney stone vs appendicitis on CT. Cr 1.4 at baseline. Given 10 morphine, 1L NS, zofran, pyridium, toradol, rocephin. Pain comes back 30-60min after meds given Admit m/s hospitalist for intractable ABD pain, UTI Discharge - Discharge Information Problems reviewed: Yes Clinical Impression/Diagnosis: UTI (urinary tract infection) Qualifiers: Urinary tract infection type: acute cystitis Hematuria presence: without hematuria Qualified Code(s): N30.00 - Acute cystitis without hematuria Abdominal pain Qualifiers: Abdominal location: right lower quadrant Qualified Code(s): R10.31 - Right lower quadrant pain Condition: Improved Disposition: HOME - Follow up/Referral Referrals: Tej Chamberlain MD [Primary Care Provider] - - Patient Discharge Instructions - Post Discharge Activity
[2020-07-05] MEDS ORDERED: morphine CARPU-JECT 4 MG/1 ML DISP.SYRIN IVPUSH ONE (22:21)
[2020-07-05] MEDS ORDERED: ONDANSETRON 4 MG/2 ML VIAL IVPUSH ONE (22:22)
[2020-07-05] MEDS ORDERED: SODIUM CHLORIDE 0.9% 500 ML INFUS.BAG IV ONE (22:22)
[2020-07-05] MEDS ORDERED: MORPHINE SULFATE 2 MG/ML VIAL ONE (22:28)
--- NOTE | 2020-07-05 22:50 | PDOC ---
Documentation entered by Pau Sandoval SCRIBE, acting as scribe for Yisel Ji DO. Yisel Ji DO: This documentation has been prepared by the Jaime nur Brenda, SCRIBE, under my direction and personally reviewed by me in its entirety. I confirm that the documentation accurately reflects all work, treatment, procedures, and medical decision making performed by me. Attending Attestation - Resident Resident Name: Ham Darden - ED Attending Attestation I have performed the following: I have examined & evaluated the patient, The case was reviewed & discussed with the resident, I agree w/resident's findings & plan, Exceptions are as noted - HPI HPI: 07/05/20 22:34 The patient is a 64 year old female with a significant PMH of DM, Kidney stones (2012) who presents to the emergency department for evaluation of 2 days of right quadrant pain. Patient notes that she has been feeling right quadrant pain for about 2 months, however the pain has gotten significantly worse over the past 2 days. She notes aggravation of pain with movement. She reports going to see her PCP Dr. Chamberlain today for the pain and notes she was diagnosed with a UTI and was given antibiotics and she took the first dose today. Patient notes that per Dr. Chamberlain if pain worsened she was to proceed to the ED. LBM 3 hours ago. Also endorses nausea. The patient denies chest pain, shortness of breath, headache and dizziness. Denies fever, chills, vomiting, diarrhea and constipation. Denies dysuria, frequency, urgency and hematuria. Allergies: NKA Past surgical history: Lumpectomy Social history: Smoker PCP: Kera Chamberlain Urologist: Kyle - Physicial Exam PE: 07/05/20 22:43 GENERAL: Morbidly obese. Awake, alert, and fully oriented, in no acute distress LUNGS: Breath sounds equal, clear to auscultation bilaterally. No wheezes, and no crackles HEART: Regular rate and rhythm, normal S1 and S2, no murmurs, rubs or gallops ABDOMEN: (+) Right flank tenderness to palpation. (+) Right lower quadrant to palpation. (+) Small hernia, nontender on left lower quadrant. Soft, normoactive bowel sounds. No guarding, no rebound. No masses EXTREMITIES: (+) candidiasis in diaper area. Normal range of motion, no edema. No clubbing or cyanosis. No cords, erythema, or tenderness NEUROLOGICAL: Cranial nerves II through XII grossly intact. Normal speech, normal gait SKIN: Warm, Dry, normal turgor, no rashes or lesions noted. - Medical Decision Making 07/05/20 22:48 a/p: 64yo female with worsening R flank pain -dx with a uti earlier today at Dr. Pankaj Chamberlain office -worsening RLQ pain, concern for renal colic -pt is acute, sharp and intermittent -pt with nausea, no vomiting -no fevers -pt is morbidly obese and yelling/screaming in pain upon arrival -will send labs, ua, ct abd/pelvis without contrast -urology Dr. Wright 07/05/20 23:[address] ua shows uti, which pt started on oral abx today mildly elevated wbc normal appy, no stones Discharge - Discharge Information Problems reviewed: Yes Clinical Impression/Diagnosis: Abdominal pain UTI (urinary tract infection) Qualifiers: Urinary tract infection type: acute cystitis Hematuria presence: without hematuria Qualified Code(s): N30.00 - Acute cystitis without hematuria Condition: Improved - Follow up/Referral Referrals: Tej Chamberlain MD [Primary Care Provider] - - Patient Discharge Instructions - Post Discharge Activity
[2020-07-05 22:53] LABS: EPI CELLS 2 /uL (0-25.1); HYALINE CASTS 1 /uL (0-3.1); URINE APPEARANCE CLEAR; URINE BACTERIA 655 /uL (0-1359); URINE BILIRUBIN NEGATIVE (NEGATIVE); URINE COLOR YELLOW; URINE GLUCOSE (UA) NEGATIVE (NEGATIVE); URINE KETONE NEGATIVE (NEGATIVE); URINE LEUK ESTERASE 2+ (NEGATIVE); URINE NITRITE NEGATIVE (NEGATIVE); URINE PROTEIN TRACE (NEGATIVE); URINE RBC 5 /uL (0-23.9); URINE UROBILINOGEN 0.2 mg/dL (0.2-1.0); URINE WBC 422 /uL (0-25.8)
[2020-07-05 22:56] LABS: BASO % 1.3 % (0-2.0); EOS % 2.9 % (0-4.5); HEMATOCRIT 37.3 % (32.4-45.2); HEMOGLOBIN 12.1 GM/dL (10.7-15.3); LYMPH % 12.8 % (8-40); MCH 27.8 pg (25.7-33.7); MCHC 32.4 g/dl (32.0-36.0); MEAN CELL VOLUME 85.8 fl (80-96); MEAN PLT VOLUME 8.4 fl (7.5-11.1); MONO % 7.5 % (3.8-10.2); NEUT % 75.5 % (42.8-82.8); PLATELET COUNT 247 K/MM3 (134-434); RBC 4.35 M/mm3 (3.60-5.2); RDW 15.2 % (11.6-15.6); WHITE BLOOD COUNT 12.3 K/mm3 (4.0-10.0)
[2020-07-05 23:03] LABS: INR 2.14 (0.83-1.09); PROTHROMBIN TIME (PATIENT) 25.4 SEC (9.7-13.0)
[2020-07-05] MEDS ORDERED: PHENAZOPYRIDINE HCL 100 MG TABLET (FP) PO ONE (23:41)
[2020-07-05] MEDS ORDERED: PHENAZOPYRIDINE HCL 100 MG TABLET (FP) ONE (23:46)
[2020-07-05] MEDS ORDERED: KETOROLAC TROMETHAMINE 30 MG/1 ML VIAL IVPUSH ONE (23:50)
[2020-07-05] MEDS ORDERED: CEFTRIAXONE 1 GM in DEXTROSE 5%-WATER - 100 ML IVPB ONE (23:51)
[2020-07-05] MEDS ORDERED: KETOROLAC TROMETHAMINE 30 MG/1 ML VIAL ONE (23:55)
[2020-07-05] MEDS ORDERED: CEFTRIAXONE 1 GM/50 ML BAG ONE (23:56)
[2020-07-06 00:20] LABS: ALBUMIN 3.6 g/dl (3.4-5.0); BILIRUBIN,TOTAL 0.4 mg/dL (0.2-1); BLOOD UREA NITROGEN 23.4 mg/dL (7-18); CALCIUM 9.2 mg/dL (8.5-10.1); CREATININE 1.4 mg/dL (0.55-1.3); TOT PROT 7.5 g/dl (6.4-8.2)
[2020-07-06] MEDS ORDERED: morphine CARPU-JECT 4 MG/1 ML DISP.SYRIN IVPUSH ONE (01:22)
--- NOTE | 2020-07-06 01:48 | HP ---
Admitting History and Physical - Primary Care Physician PCP: Tej Chamberlain - Admission Chief Complaint: Abdominal Pain History of Present Illness: This is a 64 y/o female with a PMHx of IDDM, Pancreatitis, COPD (on 3L), HTN, HLD, Schizoaffective Disorder, Seizure, SHELL (CPAP), Severe Obesity. Who presents to the ED from her PMD's office for abdominal pain. Patient describes the pain to her lower abdomen as sharp, intermittent with dysuria. She reports that her urine was dark, cloudy, with a foul odor. Patient denies fever, chills, cough, SOB, CP, palpitations, N/V/D. 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: Seizure Cardiovascular: Yes: HTN, Hyperlipdemia Pulmonary: Yes: COPD, Sleep Apnea, O2 Dependent Gastrointestinal: Yes: Constipation, Pancreatitis Hepatobiliary: Yes: Cholelithiasis Renal/: Yes: Renal Calculi, Other (urge incontinence, enuresis) Heme/Onc: Yes: Cancer (right breast s/p chemo, XRT, lumpectomy) Psych: Yes: Anxiety, Bipolar (schizoaffective bipolar) Musculoskeletal: Yes: Osteoarthritis Endocrine: Yes: Diabetes Mellitus, Hypothyroidism - Past Surgical History Past Surgical History: Yes: Joint Replacement, Breast Biopsy, Cholecystectomy - Smoking History Smoking history: Former smoker Have you smoked in the past 12 months: No Aproximately how many cigarettes per day: 20 If you are a former smoker, when did you quit?: 3 yrs ago - Alcohol/Substance Use Hx Alcohol Use: No History of Substance Use: reports: None - Social History ADL: Independent (walks with cane) Home Medications - Allergies Allergies/Adverse Reactions: Allergies Allergy/AdvReac Type Severity Reaction Status Date / Time acetaminophen [From Tylenol] Allergy "VOMITS" Verified 03/29/20 13:18 almond oil Allergy "ITCHY" Verified 03/29/20 13:18 citalopram hydrobromide Allergy "STROKE Verified 03/29/20 13:18 [From Celexa] LIKE SYMPTOMS" divalproex sodium Allergy "PANCREATIT Verified 03/29/20 13:18 [From Depakote] IS" Iodinated Contrast Media Allergy Verified 03/29/20 13:18 [Iodinated Contrast Media - IV Dye] lamotrigine [From Lamictal] Allergy "FACE Verified 03/29/20 13:18 SWELLS" lithium [[place]] Allergy "SEIZURES,SWOLLEN Verified 03/29/20 13:18 ARMS/LEGS" meperidine HCl [From Demerol] Allergy "TURNS RED Verified 03/29/20 13:18 WHEN MIXED WITH NOVACAINE" shellfish derived Allergy "TURNED Verified 03/29/20 13:18 RED /ITCHY" sulfamethoxazole Allergy "COLLAPSED, Verified 03/29/20 13:18 [From Bactrim] HEART ISSUE" topiramate [From Topamax] Allergy TO Verified 03/29/20 13:18 POISONOUS LEVELS" trimethoprim [From Bactrim] Allergy "COLLAPSED,HEART Verified 03/29/20 13:18 ISSUE" - Home Medications Home Medications: Ambulatory Orders Buspirone HCl [Buspar] 15 mg PO TID 03/20/14 Anastrozole [Arimidex -] 1 mg PO DAILY #0 12/06/16 Gabapentin [Neurontin -] 100 mg PO Q8H #0 12/06/16 Insulin (Novolog) [Novolog Flexpen -] 0 units SQ ASDIR #0 12/06/16 Quetiapine Fumarate [Seroquel -] 800 mg PO HS #0 12/06/16 Quinapril HCl [Accupril -] 10 mg PO DAILY #0 12/06/16 Albuterol 0.083% Nebulizer Blaire [Ventolin 0.083% Nebulizer Soln -] 1 amp NEB Q4H PRN amp 09/28/17 Albuterol 0.083% Nebulizer Blaire [Ventolin 0.083% Nebulizer Soln -] 1 amp NEB Q4H PRN amp 08/26/19 Insulin Sliding Scale [Novolog Vial Sliding Scale -] 1 vial SQ TIDAC units 08/26/19 Levothyroxine [Synthroid -] 200 mcg PO DAILY@0700 tablet 08/26/19 Buspirone HCl 15 mg PO TID 03/04/20 Lorazepam [Ativan] 1 mg PO HS PRN 03/05/20 Rosuvastatin Calcium [Crestor] 10 mg PO DAILY 03/05/20 Ziprasidone [Geodon -] 40 mg PO BID 04/20/20 Ascorbic Acid [Vitamin C] 2,000 mg PO BID #60 tablet 03/08/20 Zinc Sulfate [Orazinc -] 220 mg PO BID #30 capsule 03/08/20 Insulin (Levemir) [Levemir Vial] 10 units SQ BID@0700,2200 05/07/20 Warfarin Na [Coumadin -] 8 tab PO DAILY 05/07/20 Pantoprazole Sodium [Protonix -] 40 mg PO DAILY #30 tablet.ec 05/10/20 Insulin Sliding Scale [Novolog Vial Sliding Scale -] 1 vial SQ ACHS units 05/14/20 Metoclopramide HCl [Reglan -] 5 mg PO TIDAC #90 tablet 05/14/20 Family Medical History Family History: As Documented Family Hx Coronary Artery Disease: Brother Review of Systems - Review of Systems Constitutional: reports: Loss of Appetite Eyes: reports: No Symptoms HENT: reports: No Symptoms Neck: reports: No Symptoms Cardiovascular: reports: No Symptoms Respiratory: reports: No Symptoms Gastrointestinal: reports: Abdominal Pain Genitourinary: reports: Dysuria Breasts: reports: No Symptoms Reported Musculoskeletal: reports: No Symptoms Integumentary: reports: No Symptoms Neurological: reports: No Symptoms Endocrine: reports: No Symptoms Hematology/Lymphatic: reports: No Symptoms Psychiatric: reports: No Symptoms Pain Intensity: 10 Physical Examination Vital Signs: Vital Signs Temperature 98.5 F 07/05/20 21:50 Pulse Rate 95 H 07/05/20 21:50 Respiratory Rate 19 07/05/20 21:50 Blood Pressure 181/163 H 07/05/20 21:50 O2 Sat by Pulse Oximetry (%) 97 07/05/20 22:48 Constitutional: Yes: Well Nourished, Anxious, Moderate Distress, Obese Eyes: Yes: WNL, Conjunctiva Clear, EOM Intact, PERRL HENT: Yes: WNL, Atraumatic, Normocephalic Neck: Yes: WNL, Supple, Trachea Midline Cardiovascular: Yes: Regular Rate and Rhythm, S1, S2 Respiratory: Yes: Regular, CTA Bilaterally, Diminished Gastrointestinal: Yes: Normal Bowel Sounds, Abdomen, Obese, Tenderness (RLQ), Ot her (Striae) ...Rectal Exam: Yes: Deferred Renal/: Yes: WNL Breast(s): Yes: WNL Musculoskeletal: Yes: WNL Extremities: Yes: Erythema (b/l LE) Edema: Yes Edema: LLE: 2+, RLE: 2+ Peripheral Pulses WNL: Yes Integumentary: Yes: Venous Stasis Changes (b/l LE) Neurological: Yes: Alert, Oriented, Cran Nerves II-XII Intact ...Motor Strength: WNL Psychiatric: Yes: WNL, Alert, Oriented Labs: CBC, BMP 07/05/20 22:45 07/05/20 22:45 Laboratory Results - last 24 hr 07/05/20 07/05/20 07/05/20 22:25 22:45 22:45 WBC 12.3 H RBC 4.35 Hgb 12.1 Hct 37.3 MCV 85.8 MCH 27.8 MCHC 32.4 RDW 15.2 Plt Count 247 MPV 8.4 Absolute Neuts (auto) 9.3 H Neutrophils % 75.5 D Lymphocytes % 12.8 D Monocytes % 7.5 Eosinophils % 2.9 Basophils % 1.3 D Nucleated RBC % 0 PT with INR 25.40 H INR 2.14 H Sodium Potassium Chloride Carbon Dioxide Anion Gap BUN Creatinine Est GFR (CKD-EPI)AfAm Est GFR (CKD-EPI)NonAf Random Glucose Calcium Total Bilirubin AST ALT Alkaline Phosphatase Total Protein Albumin Lipase Urine Color Yellow Urine Appearance Clear Urine pH 6.0 Ur Specific [place] 1.011 Urine Protein Trace Urine Glucose (UA) Negative Urine Ketones Negative Urine Blood Trace Urine Nitrite Negative Urine Bilirubin Negative Urine Urobilinogen 0.2 Ur Leukocyte Esterase 2+ H Urine WBC (Auto) 422 Urine RBC (Auto) 5 Urine Casts (Auto) 1 U Epithel Cells (Auto) 2 Urine Bacteria (Auto) 655 07/05/20 22:45 WBC RBC Hgb Hct MCV MCH MCHC RDW Plt Count MPV Absolute Neuts (auto) Neutrophils % Lymphocytes % Monocytes % Eosinophils % Basophils % Nucleated RBC % PT with INR INR Sodium 137 Potassium 5.0 Chloride 103 Carbon Dioxide 25 Anion Gap 9 BUN 23.4 H Creatinine 1.4 H Est GFR (CKD-EPI)AfAm 46.23 Est GFR (CKD-EPI)NonAf 39.89 Random Glucose 263 H Calcium 9.2 Total Bilirubin 0.4 AST 30 ALT 25 Alkaline Phosphatase 116 Total Protein 7.5 Albumin 3.6 Lipase 152 Urine Color Urine Appearance Urine pH Ur Specific [place] Urine Protein Urine Glucose (UA) Urine Ketones Urine Blood Urine Nitrite Urine Bilirubin Urine Urobilinogen Ur Leukocyte Esterase Urine WBC (Auto) Urine RBC (Auto) Urine Casts (Auto) U Epithel Cells (Auto) Urine Bacteria (Auto) Current Medications Generic Name Dose Route Start Last Admin Trade Name Freq PRN Reason Stop Dose Admin Anastrozole 1 mg 07/06/20 10:00 Arimidex - PO DAILY [facility] Buspirone HCl 10 mg/ Buspirone 15 mg 07/06/20 06:00 HCl 5 mg PO TID [facility] Gabapentin 100 mg 07/06/20 10:00 Neurontin - PO BID [facility] Ceftriaxone Sodium 1 gm/ 50 mls @ 100 mls/hr 07/06/20 18:00 Dextrose IVPB DAILY [facility] Protocol Insulin Aspart 1 vial 07/06/20 07:00 Novolog Vial Sliding Scale - SQ ACHS [facility] Protocol Levothyroxine Sodium 200 mcg 07/06/20 07:00 Synthroid - PO DAILY@0700 [facility] Lorazepam 1 mg 07/06/20 02:50 Ativan - PO HS PRN ANXIETY Morphine Sulfate 2 mg 07/06/20 05:46 07/06/20 05:54 Morphine Sulfate IVPUSH 2 mg Q6H PRN Administration PAIN LEVEL 7 - 10 Polyethylene Glycol 17 gm 07/06/20 10:00 Miralax (For Daily Use) - PO DAILY [facility] Quetiapine Fumarate 800 mg 07/06/20 22:00 Seroquel - PO HS [facility] Rosuvastatin Calcium 10 mg 07/06/20 22:00 Crestor - PO HS [facility] Warfarin Sodium 8 mg 07/06/20 18:00 Coumadin - PO DAILY@1800 [facility] Ziprasidone 40 mg 07/06/20 10:00 Geodon - PO BID [facility] Imaging - Results Cat Scan: Report Reviewed, Image Reviewed EKG: Image Reviewed Problem List - Problems (1) Urinary tract infection Assessment/Plan: Urine Culture-pending Continue Rocephin Pyridum given in ED Monitor CBC, CMP Monitor vitals Code(s): N39.0 - URINARY TRACT INFECTION, SITE NOT SPECIFIED Qualifiers: Urinary tract infection type: acute cystitis Hematuria presence: without hematuria Qualified Code(s): N30.00 - Acute cystitis without hematuria (2) Abdominal pain Assessment/Plan: Likely secondary to Constipation CTAP- reviewed Monitor CBC, CMP Consider GI consult Miralax for constipation Morphine Sulfate used judiciously secondary to analgesic allergies Code(s): R10.9 - UNSPECIFIED ABDOMINAL PAIN Qualifiers: Abdominal location: right lower quadrant Qualified Code(s): R10.31 - Right lower quadrant pain (3) COPD (chronic obstructive pulmonary disease) Assessment/Plan: stable No acute flare Chest Xray image reviewed O2 Continue home meds Albuterol MDI Code(s): J44.9 - CHRONIC OBSTRUCTIVE PULMONARY DISEASE, UNSPECIFIED Qualifiers: (4) ASHD (arteriosclerotic heart disease) Assessment/Plan: Stable Continue home meds EKG- reviewed Code(s): I25.10 - ATHSCL HEART DISEASE OF [place] CORONARY ARTERY W/O ANG PCTRS (5) Breast CA Assessment/Plan: Continue home med f/u with Oncology outpatient as indicated Code(s): C50.919 - MALIGNANT NEOPLASM OF UNSP SITE OF UNSPECIFIED FEMALE BREAST (6) Hyperlipidemia Assessment/Plan: stable Continue home med Monitor LFTs Code(s): E78.5 - HYPERLIPIDEMIA, UNSPECIFIED Qualifiers: (7) Hypertension Assessment/Plan: sub optimal likely due to abdominal pain Monitor BP Continue home med Hold ACEi 2/2 YOU Monitor renal function Code(s): I10 - ESSENTIAL (PRIMARY) HYPERTENSION Qualifiers: (8) Hypothyroidism Assessment/Plan: stable Continue home med TSH in am Code(s): E03.9 - HYPOTHYROIDISM, UNSPECIFIED Qualifiers: (9) IDDM (insulin dependent diabetes mellitus) Assessment/Plan: Monitor BGMs ISS Consider Endocrinology consult Code(s): GPU1842 - (10) Obstructive sleep apnea on CPAP Assessment/Plan: CPAP HS Code(s): G47.33 - OBSTRUCTIVE SLEEP APNEA (ADULT) (PEDIATRIC) (11) Schizoaffective disorder, bipolar type Assessment/Plan: stable Continue home meds Code(s): F25.0 - SCHIZOAFFECTIVE DISORDER, BIPOLAR TYPE (12) History of pulmonary embolism Assessment/Plan: Stable Continue Coumadin INR range 2.0-3.0 Series INRs Code(s): Z86.711 - PERSONAL HISTORY OF PULMONARY EMBOLISM (13) Tobacco abuse Assessment/Plan: Counseled on Smoking Cessation Nicotine Patch Code(s): Z72.0 - TOBACCO USE (14) Encounter for screening laboratory testing for COVID-19 virus Assessment/Plan: Low Risk COVID PCR-pending Isolation Precautions Code(s): Z11.59 - ENCOUNTER FOR SCREENING FOR OTHER VIRAL DISEASES Assessment/Plan This is a 64 y/o female with a PMHx of IDDM, Pancreatitis, COPD (on 3L), HTN, HLD, Schizoaffective Disorder, Seizure, SHELL (CPAP), Admitted for Intractable Abdominal Pain, UTI for further evaluation of their emergent condition. Plan: See Problem List FEN NS@75ml/hr Replete lytes prn Clear Liquid Diet DVT ppx OOB SCDs Continue Coumadin Dispo: Requires Inpatient Care Visit type - Emergency Visit Emergency Visit: Yes ED Registration Date: 07/05/20 Care time: The patient presented to the Emergency Department on the above date and was hospitalized for further evaluation of their emergent condition. - New Patient This patient is new to me today: Yes Date on this admission: 07/06/20 - Critical Care Critical Care patient: No
[2020-07-06] MEDS ORDERED: morphine SULFATE 4 MG/ML VIAL ONE (02:18)
[2020-07-06] MEDS ORDERED: LORazepam 1 MG TABLET PO PRN (02:50)
[2020-07-06 04:34] VITALS: BMI 40.6
[2020-07-06] MEDS: MORPHINE SULFATE 2 MG/ML VIAL IVPUSH PRN ×2 (05:54→12:58)
[2020-07-06] MEDS ORDERED: BUSPIRONE HCL 15 MG PO SCH (06:00)
[2020-07-06] MEDS: BUSPIRONE HCL 10 MG, BUSPIRONE HCL 5 MG PO SCH ×3 (06:37→21:11)
[2020-07-06] MEDS: LEVOTHYROXINE NA 200 MCG TABLET PO SCH (06:37)
[2020-07-06] MEDS: INSULIN SLIDING SCALE (NOVOLOG) 1 VIAL SQ SCH ×4 (06:39→21:19)
[2020-07-06 08:08] LABS: EOS % 5.5 % (0-4.5); HEMATOCRIT 34.4 % (32.4-45.2); HEMOGLOBIN 11.3 GM/dL (10.7-15.3); LYMPH % 12.9 % (8-40); MCH 28.4 pg (25.7-33.7); MEAN CELL VOLUME 86.1 fl (80-96); MEAN PLT VOLUME 8.1 fl (7.5-11.1); MONO % 8.4 % (3.8-10.2); NEUT % 72.2 % (42.8-82.8); PLATELET COUNT 209 K/MM3 (134-434); RDW 15.3 % (11.6-15.6); WHITE BLOOD COUNT 7.3 K/mm3 (4.0-10.0)
[2020-07-06 08:28] LABS: ALBUMIN 3.2 g/dl (3.4-5.0); BILIRUBIN,TOTAL 0.3 mg/dL (0.2-1); BLOOD UREA NITROGEN 24.6 mg/dL (7-18); CALCIUM 8.8 mg/dL (8.5-10.1); CREATININE 1.5 mg/dL (0.55-1.3); POTASSIUM 4.2 mmol/L (3.5-5.1); TOT PROT 6.3 g/dl (6.4-8.2)
[2020-07-06 08:51] LABS: INR 1.9 (0.83-1.09); PROTHROMBIN TIME (PATIENT) 22.6 SEC (9.7-13.0)
[2020-07-06] MEDS ORDERED: PT OWN MED DRAWER 7, Y5N ONE ×2 (10:02→13:09)
[2020-07-06] MEDS: GABAPENTIN 100 MG CAPSULE PO SCH ×2 (10:26→21:11)
[2020-07-06] MEDS: ANASTROZOLE 1 MG TABLET PO SCH (10:27)
[2020-07-06] MEDS: ZIPRASIDONE 40 MG CAPSULE PO SCH ×2 (10:27→21:11)
[2020-07-06] MEDS: POLYETHYLENE GLYCOL 3350 119 GM BTL PO SCH (10:41)
--- NOTE | 2020-07-06 10:44 | EKG ---
Test Reason : Blood Pressure : / mmHG Vent. Rate : 081 BPM Atrial Rate : 081 BPM P-R Int : 184 ms QRS Dur : 118 ms QT Int : 416 ms P-R-T Axes : 067 -59 064 degrees QTc Int : 483 ms NORMAL SINUS RHYTHM LEFT ANTERIOR FASCICULAR BLOCK LEFT VENTRICULAR HYPERTROPHY WITH QRS WIDENING ABNORMAL ECG WHEN COMPARED WITH ECG OF 04-MAY-2020 13:09, NO SIGNIFICANT CHANGE WAS FOUND Confirmed by PAUL RIOS MD ([id number]) on 07/06/2020 10:44:29 AM Referred By: Confirmed By:PAUL RIOS MD
[2020-07-06] MEDS ORDERED: INSULIN (NOVOLOG) ASPART 100 UNITS/ML 10ML VIAL ONE (12:06)
[2020-07-06] MEDS ORDERED: PHENAZOPYRIDINE HCL 100 MG TABLET (FP) PO ONE (12:16)
--- NOTE | 2020-07-06 12:20 | PN ---
Progress Note, Physician History of Present Illness: Patient seen and examined Well-known to me was seen in office yesterday----Clinical diagnosis was UTI Was prescribed antibiotics Patient came to the ER----as she has intractable pain She had called me last night----I advised to go to ER then CAT scan--reviewed--- essentially okay Urinalysis positive--- for UTI On antibiotics still having pain--But looks better - Current Medication List Current Medications: Active Medications Anastrozole (Arimidex -) 1 mg PO DAILY [facility] Last Admin: 07/06/20 10:27 Dose: 1 mg Documented by: Buspirone HCl 10 mg/ Buspirone (HCl 5 mg) 15 mg PO TID [facility] Last Admin: 07/06/20 06:37 Dose: 15 mg Documented by: Gabapentin (Neurontin -) 100 mg PO BID [facility] Last Admin: 07/06/20 10:26 Dose: 100 mg Documented by: Ceftriaxone Sodium 1 gm/ (Dextrose) 50 mls @ 100 mls/hr IVPB DAILY [facility]; Protocol Insulin Aspart (Novolog Vial Sliding Scale -) 1 vial SQ ACHS [facility]; Protocol Last Admin: 07/06/20 12:09 Dose: 2 units Documented by: Levothyroxine Sodium (Synthroid -) 200 mcg PO DAILY@0700 [facility] Last Admin: 07/06/20 06:37 Dose: 200 mcg Documented by: Lorazepam (Ativan -) 1 mg PO HS PRN PRN Reason: ANXIETY Morphine Sulfate (Morphine Sulfate) 2 mg IVPUSH Q6H PRN PRN Reason: PAIN LEVEL 7 - 10 Last Admin: 07/06/20 05:54 Dose: 2 mg Documented by: Polyethylene Glycol (Miralax (For Daily Use) -) 17 gm PO DAILY [facility] Last Admin: 07/06/20 10:41 Dose: 17 gm Documented by: Quetiapine Fumarate 600 mg/ (Quetiapine Fumarate 200 mg) 800 mg PO HS [facility] Rosuvastatin Calcium (Crestor -) 10 mg PO HS [facility] Warfarin Sodium (Coumadin -) 8 mg PO DAILY@1800 [facility] Ziprasidone (Geodon -) 40 mg PO BID [facility] Last Admin: 07/06/20 10:27 Dose: 40 mg Documented by: - Objective Vital Signs: Vital Signs Temperature 97.9 F 07/06/20 04:27 Pulse Rate 77 07/06/20 04:27 Respiratory Rate 18 07/06/20 04:27 Blood Pressure 153/89 07/06/20 04:27 O2 Sat by Pulse Oximetry (%) 98 07/06/20 08:30 Constitutional: Yes: No Distress, Anxious Eyes: Yes: Conjunctiva Clear Neck: Yes: Supple Cardiovascular: Yes: Regular Rate and Rhythm Respiratory: Yes: Diminished Gastrointestinal: Yes: Soft, Abdomen, Obese, Tenderness (Lower quadrants/and suprapubic area No rebound bowel sounds present) Edema: No Labs: CBC, BMP 07/06/20 07:25 07/06/20 07:25 INR, PTT INR 1.90 (0.83-1.09) H 07/06/20 07:25 Problem List - Problems (1) History of pulmonary embolism Code(s): Z86.711 - PERSONAL HISTORY OF PULMONARY EMBOLISM (2) Abdominal pain Code(s): R10.9 - UNSPECIFIED ABDOMINAL PAIN Qualifiers: Abdominal location: right lower quadrant Qualified Code(s): R10.31 - Right lower quadrant pain (3) Encounter for screening laboratory testing for COVID-19 virus Code(s): Z11.59 - ENCOUNTER FOR SCREENING FOR OTHER VIRAL DISEASES (4) Urinary tract infection Code(s): N39.0 - URINARY TRACT INFECTION, SITE NOT SPECIFIED Qualifiers: Urinary tract infection type: acute cystitis Hematuria presence: without hematuria Qualified Code(s): N30.00 - Acute cystitis without hematuria (5) Abdominal wall hernia Code(s): K43.9 - VENTRAL HERNIA WITHOUT OBSTRUCTION OR GANGRENE (6) Breast CA Code(s): C50.919 - MALIGNANT NEOPLASM OF UNSP SITE OF UNSPECIFIED FEMALE BREAST (7) COPD (chronic obstructive pulmonary disease) Code(s): J44.9 - CHRONIC OBSTRUCTIVE PULMONARY DISEASE, UNSPECIFIED Qualifiers: (8) IDDM (insulin dependent diabetes mellitus) Code(s): [id number] - (9) Morbid obesity with BMI of 40.0-44.9, adult Code(s): E66.01 - MORBID (SEVERE) OBESITY DUE TO EXCESS CALORIES; Z68.41 - BODY MASS INDEX (BMI) 40.0-44.9, ADULT Assessment/Plan continue antibiotics follow-up cultures Pain control Pyridium 1 dose monitor blood sugar Out of bed to chair--as tolerated Monitor INR We'll give 1 mg Coumadin dose tonight We will follow
[2020-07-06] MEDS ORDERED: DEXTROSE 5%-WATER - 50 ML IVPB ONE (17:20)
[2020-07-06] MEDS ORDERED: cefTRIAXone SODIUM 1 GM VIAL ONE (17:20)
[2020-07-06] MEDS: WARFARIN NA 2 MG TABLET PO SCH (17:46)
[2020-07-06] MEDS: CEFTRIAXONE 1 GM in DEXTROSE 5%-WATER - 50 ML IVPB SCH (17:46)
[2020-07-06] MEDS ORDERED: WARFARIN NA 1 MG TABLET PO ONE (18:00)
[2020-07-06] MEDS ORDERED: WARFARIN NA 7.5 MG TABLET (FP) PO SCH (18:00)
[2020-07-06] MEDS ORDERED: QUEtiapine FUMARATE 100 MG TABLET (FP) ONE (20:49)
[2020-07-06] MEDS ORDERED: QUEtiapine FUMARATE 200 MG TABLET ONE (20:49)
[2020-07-06] MEDS: ROSUVASTATIN CA 10 MG TABLET (FP) PO SCH (21:10)
[2020-07-06] MEDS: QUETIAPINE FUMARATE PO SCH (21:10)
[2020-07-06] MEDS ORDERED: QUEtiapine FUMARATE 400 MG TABLET PO SCH (22:00)
[2020-07-07] MEDS: BUSPIRONE HCL 10 MG, BUSPIRONE HCL 5 MG PO SCH ×3 (06:09→21:17)
[2020-07-07] MEDS: LEVOTHYROXINE NA 200 MCG TABLET PO SCH (06:09)
[2020-07-07] MEDS: INSULIN SLIDING SCALE (NOVOLOG) 1 VIAL SQ SCH ×4 (06:10→21:28)
[2020-07-07 08:55] LABS: INR 1.64 (0.83-1.09); PROTHROMBIN TIME (PATIENT) 19.4 SEC (9.7-13.0)
--- NOTE | 2020-07-07 09:05 | PN ---
Progress Note (short form) - Note Progress Note: has pain in right lower quadrant mild dysuria Vital Signs - 24 hr 07/06/20 07/06/20 07/06/20 14:44 20:43 21:00 Temperature 98.2 F Pulse Rate 78 Respiratory 20 Rate Blood Pressure 142/62 O2 Sat by Pulse 97 97 Oximetry (%) 07/06/20 07/07/20 07/07/20 22:00 04:14 08:24 Temperature 98.2 F 98.0 F Pulse Rate 81 86 Respiratory 20 20 Rate Blood Pressure 151/76 151/89 O2 Sat by Pulse 96 95 94 L Oximetry (%) Current Medications Generic Name Dose Route Start Last Admin Trade Name Freq PRN Reason Stop Dose Admin Anastrozole 1 mg 07/06/20 10:00 07/06/20 10:27 Arimidex - PO 1 mg DAILY ANDREA Administration Buspirone HCl 10 mg/ Buspirone 15 mg 07/06/20 06:00 07/07/20 06:09 HCl 5 mg PO 15 mg TID ANDREA Administration Gabapentin 100 mg 07/06/20 10:00 07/06/20 21:11 Neurontin - PO 100 mg BID ANDREA Administration Ceftriaxone Sodium 1 gm/ 50 mls @ 100 mls/hr 07/06/20 18:00 07/06/20 17:46 Dextrose IVPB 100 mls/hr DAILY ANDREA Administration Protocol Insulin Aspart 1 vial 07/06/20 07:00 07/07/20 06:10 Novolog Vial Sliding Scale - SQ 2 units ACHS ANDREA Administration Protocol Levothyroxine Sodium 200 mcg 07/06/20 07:00 07/07/20 06:09 Synthroid - PO 200 mcg DAILY@0700 [facility]A Administration Lorazepam 1 mg 07/06/20 02:50 Ativan - PO HS PRN ANXIETY Morphine Sulfate 2 mg 07/06/20 05:46 07/06/20 12:58 Morphine Sulfate IVPUSH 2 mg Q6H PRN Administration PAIN LEVEL 7 - 10 Polyethylene Glycol 17 gm 07/06/20 10:00 07/06/20 10:41 Miralax (For Daily Use) - PO 17 gm DAILY ANDREA Administration Quetiapine Fumarate 600 mg/ 800 mg 07/06/20 22:00 07/06/20 21:10 Quetiapine Fumarate 200 mg PO 800 mg HS ANDREA Administration Rosuvastatin Calcium 10 mg 07/06/20 22:00 07/06/20 21:10 Crestor - PO 10 mg HS ANDREA Administration Warfarin Sodium 8 mg 07/06/20 18:00 07/06/20 17:46 Coumadin - PO 8 mg DAILY@1800 ANDREA Administration Ziprasidone 40 mg 07/06/20 10:00 07/06/20 21:11 Geodon - PO 40 mg BID ANDREA Administration Laboratory Results - last 24 hr 07/06/20 07/06/20 07/06/20 03:01 12:03 17:15 PT with INR INR POC Glucometer 166 137 COVID-19 (AGNIESZKA) Not detected 07/06/20 07/07/20 07/07/20 21:19 06:09 07:50 PT with INR 19.40 H INR 1.64 H POC Glucometer 157 189 COVID-19 (AG[place]IESZ[place]) S1 Ss2 Irregular Lungs decreased Abd- soft, obese, tender RLQ, BS+ no edema PLAN iv antibiotics increase Coumadin check INR urine cultures here in hospital-- no growth- will check office labs Problem List - Problems (1) Abdominal pain Code(s): R10.9 - UNSPECIFIED ABDOMINAL PAIN Qualifiers: Abdominal location: right lower quadrant Qualified Code(s): R10.31 - Right lower quadrant pain (2) Encounter for screening laboratory testing for COVID-19 virus Code(s): Z11.59 - ENCOUNTER FOR SCREENING FOR OTHER VIRAL DISEASES (3) Urinary tract infection Code(s): N39.0 - URINARY TRACT INFECTION, SITE NOT SPECIFIED Qualifiers: Urinary tract infection type: acute cystitis Hematuria presence: without hematuria Qualified Code(s): N30.00 - Acute cystitis without hematuria (4) Breast CA Code(s): C50.919 - MALIGNANT NEOPLASM OF UNSP SITE OF UNSPECIFIED FEMALE BREAST (5) COPD (chronic obstructive pulmonary disease) Code(s): J44.9 - CHRONIC OBSTRUCTIVE PULMONARY DISEASE, UNSPECIFIED Qualifiers:
[2020-07-07] MEDS ORDERED: PT OWN MED DRAWER 7, Y5N ONE ×5 (09:15→21:03)
[2020-07-07] MEDS ORDERED: cefTRIAXone SODIUM 1 GM VIAL ONE (09:16)
[2020-07-07] MEDS ORDERED: DEXTROSE 5%-WATER - 50 ML IVPB ONE (09:17)
[2020-07-07] MEDS: ZIPRASIDONE 40 MG CAPSULE PO SCH ×2 (09:19→21:17)
[2020-07-07] MEDS: GABAPENTIN 100 MG CAPSULE PO SCH ×2 (09:19→21:17)
[2020-07-07] MEDS: ANASTROZOLE 1 MG TABLET PO SCH (09:19)
[2020-07-07] MEDS: CEFTRIAXONE 1 GM in DEXTROSE 5%-WATER - 50 ML IVPB SCH (09:20)
[2020-07-07] MEDS: POLYETHYLENE GLYCOL 3350 119 GM BTL PO SCH (09:23)
[2020-07-07] MEDS: WARFARIN NA 2 MG TABLET PO SCH (17:34)
[2020-07-07] MEDS: MORPHINE SULFATE 2 MG/ML VIAL IVPUSH PRN (17:34)
[2020-07-07] MEDS ORDERED: WARFARIN NA 2.5 MG TABLET PO ONE (18:00)
[2020-07-07] MEDS ORDERED: QUEtiapine FUMARATE 200 MG TABLET ONE (21:01)
[2020-07-07] MEDS ORDERED: QUEtiapine FUMARATE 100 MG TABLET (FP) ONE (21:01)
[2020-07-07] MEDS: ROSUVASTATIN CA 10 MG TABLET (FP) PO SCH (21:16)
[2020-07-07] MEDS: amLODIPine BESYLATE 5 MG TABLET (FP) PO SCH (21:17)
[2020-07-07] MEDS: QUETIAPINE FUMARATE PO SCH (21:17)
[2020-07-08] MEDS: LEVOTHYROXINE NA 200 MCG TABLET PO SCH (06:21)
[2020-07-08] MEDS: BUSPIRONE HCL 10 MG, BUSPIRONE HCL 5 MG PO SCH ×3 (06:21→21:12)
[2020-07-08] MEDS: INSULIN SLIDING SCALE (NOVOLOG) 1 VIAL SQ SCH ×4 (06:37→21:13)
[2020-07-08 08:09] LABS: INR 1.57 (0.83-1.09); PROTHROMBIN TIME (PATIENT) 18.6 SEC (9.7-13.0)
[2020-07-08] MEDS ORDERED: cefTRIAXone SODIUM 1 GM VIAL ONE (09:57)
[2020-07-08] MEDS ORDERED: DEXTROSE 5%-WATER - 50 ML IVPB ONE (09:57)
[2020-07-08] MEDS ORDERED: PT OWN MED DRAWER 7, Y5N ONE ×4 (09:57→20:52)
[2020-07-08] MEDS: CEFTRIAXONE 1 GM in DEXTROSE 5%-WATER - 50 ML IVPB SCH (10:11)
[2020-07-08] MEDS: GABAPENTIN 100 MG CAPSULE PO SCH ×2 (10:12→21:13)
[2020-07-08] MEDS: amLODIPine BESYLATE 5 MG TABLET (FP) PO SCH (10:12)
[2020-07-08] MEDS: ANASTROZOLE 1 MG TABLET PO SCH (10:15)
[2020-07-08] MEDS: ZIPRASIDONE 40 MG CAPSULE PO SCH ×2 (10:15→21:12)
[2020-07-08] MEDS: POLYETHYLENE GLYCOL 3350 119 GM BTL PO SCH (12:27)
--- NOTE | 2020-07-08 13:44 | PN ---
Progress Note (short form) - Note Progress Note: has pain in right lower quadrant mild dysuria feels better Decreased pain Vitals noted Laboratory Results - last 24 hr 07/06/20 07/06/20 07/06/20 03:01 12:03 17:15 PT with INR INR POC Glucometer 166 137 COVID-19 (AGNIESZKA) Not detected 07/06/20 07/07/20 07/07/20 21:19 06:09 07:50 PT with INR 19.40 H INR 1.64 H POC Glucometer 157 189 COVID-19 (AG[place]) S1 Ss2 Irregular Lungs decreased Abd- soft, obese, no tenderness, BS+ no edema PLAN iv antibiotics increase Coumadin Add Lovenox check INR urine cultures here in hospital-- no growth- will check office labs Problem List - Problems (1) Abdominal pain Code(s): R10.9 - UNSPECIFIED ABDOMINAL PAIN Qualifiers: Abdominal location: right lower quadrant Qualified Code(s): R10.31 - Right lower quadrant pain (2) Encounter for screening laboratory testing for COVID-19 virus Code(s): Z11.59 - ENCOUNTER FOR SCREENING FOR OTHER VIRAL DISEASES (3) Urinary tract infection Code(s): N39.0 - URINARY TRACT INFECTION, SITE NOT SPECIFIED Qualifiers: Urinary tract infection type: acute cystitis Hematuria presence: without hematuria Qualified Code(s): N30.00 - Acute cystitis without hematuria (4) Breast CA Code(s): C50.919 - MALIGNANT NEOPLASM OF UNSP SITE OF UNSPECIFIED FEMALE BREAST (5) COPD (chronic obstructive pulmonary disease) Code(s): J44.9 - CHRONIC OBSTRUCTIVE PULMONARY DISEASE, UNSPECIFIED Qualifiers:
[2020-07-08] MEDS: ENOXAPARIN NA (PORCINE) 120 MG/0.8 ML DISP.SYRIN SQ SCH ×2 (15:32→21:13)
[2020-07-08] MEDS: WARFARIN NA 2 MG TABLET PO SCH (17:32)
[2020-07-08] MEDS ORDERED: WARFARIN NA 3 MG TABLET PO ONE (18:00)
[2020-07-08] MEDS ORDERED: QUEtiapine FUMARATE 200 MG TABLET ONE (20:51)
[2020-07-08] MEDS ORDERED: QUEtiapine FUMARATE 100 MG TABLET (FP) ONE (20:51)
[2020-07-08] MEDS ORDERED: INSULIN (NOVOLOG) ASPART 100 UNITS/ML 10ML VIAL ONE (20:55)
[2020-07-08] MEDS: QUETIAPINE FUMARATE PO SCH (21:12)
[2020-07-08] MEDS: ROSUVASTATIN CA 10 MG TABLET (FP) PO SCH (21:12)
[2020-07-09] MEDS: BUSPIRONE HCL 10 MG, BUSPIRONE HCL 5 MG PO SCH ×2 (05:37→13:27)
[2020-07-09] MEDS: INSULIN SLIDING SCALE (NOVOLOG) 1 VIAL SQ SCH ×2 (06:06→11:49)
[2020-07-09] MEDS: LEVOTHYROXINE NA 200 MCG TABLET PO SCH (06:06)
[2020-07-09] MEDS ORDERED: cefTRIAXone SODIUM 1 GM VIAL ONE (09:57)
[2020-07-09] MEDS ORDERED: DEXTROSE 5%-WATER - 50 ML IVPB ONE (09:58)
[2020-07-09] MEDS: POLYETHYLENE GLYCOL 3350 119 GM BTL PO SCH (10:03)
[2020-07-09] MEDS: amLODIPine BESYLATE 5 MG TABLET (FP) PO SCH (10:03)
[2020-07-09] MEDS: CEFTRIAXONE 1 GM in DEXTROSE 5%-WATER - 50 ML IVPB SCH (10:03)
[2020-07-09] MEDS: GABAPENTIN 100 MG CAPSULE PO SCH (10:03)
[2020-07-09] MEDS: ENOXAPARIN NA (PORCINE) 120 MG/0.8 ML DISP.SYRIN SQ SCH (10:03)
[2020-07-09] MEDS: ANASTROZOLE 1 MG TABLET PO SCH (10:04)
[2020-07-09] MEDS: ZIPRASIDONE 40 MG CAPSULE PO SCH (10:04)
[2020-07-09 10:36] LABS: HEMATOCRIT 38.3 % (32.4-45.2); HEMOGLOBIN 12.3 GM/dL (10.7-15.3); MCH 27.6 pg (25.7-33.7); MCHC 32.1 g/dl (32.0-36.0); MEAN CELL VOLUME 85.8 fl (80-96); MEAN PLT VOLUME 8.6 fl (7.5-11.1); PLATELET COUNT 222 K/MM3 (134-434); RBC 4.46 M/mm3 (3.60-5.2); RDW 15.3 % (11.6-15.6); WHITE BLOOD COUNT 6.9 K/mm3 (4.0-10.0)
[2020-07-09] MEDS ORDERED: PT OWN MED DRAWER 7, Y5N ONE (10:37)
[2020-07-09 10:45] LABS: INR 1.86 (0.83-1.09); PROTHROMBIN TIME (PATIENT) 22.1 SEC (9.7-13.0)
[2020-07-09 11:05] LABS: POTASSIUM 4.5 mmol/L (3.5-5.1)
[2020-07-09] MEDS ORDERED: INSULIN (NOVOLOG) ASPART 100 UNITS/ML 10ML VIAL ONE (11:18)
[2020-07-09 11:39] LABS: ALBUMIN 3.6 g/dl (3.4-5.0); BILIRUBIN,TOTAL 0.4 mg/dL (0.2-1); BLOOD UREA NITROGEN 21.7 mg/dL (7-18); CALCIUM 9.2 mg/dL (8.5-10.1); CREATININE 1.3 mg/dL (0.55-1.3); TOT PROT 7.4 g/dl (6.4-8.2)
--- NOTE | 2020-07-09 12:20 | DS ---
Physical Examination Vital Signs: Vital Signs Temperature 97.5 F L 07/09/20 06:00 Pulse Rate 87 07/08/20 19:45 Respiratory Rate 22 H 07/09/20 09:00 Blood Pressure 132/74 07/08/20 19:45 O2 Sat by Pulse Oximetry (%) 95 07/09/20 09:00 Findings/Remarks: Feels well today No complains wants to go home afebrile Abd pain resolved chart is reviewed Constitutional: Yes: No Distress, Calm, Obese Neck: Yes: Supple Cardiovascular: Yes: Regular Rate and Rhythm Respiratory: Yes: CTA Bilaterally Gastrointestinal: Yes: Normal Bowel Sounds, Soft, Abdomen, Obese Edema: No Neurological: Yes: Alert Labs: CBC, BMP 07/09/20 08:40 07/09/20 08:40 Discharge Summary Problems reviewed: Yes Reason For Visit: URINARY TRACT INFECTION, ABDOMINAL PAIN Current Active Problems Abdominal pain (Acute) Encounter for screening laboratory testing for COVID-19 virus (Acute) History of pulmonary embolism (Acute) Urinary tract infection (Acute) Hospital Course: Much better admitted for abdominal pain/uti Treated with abx u/c -ve Pt had taken abx dose as out pt Stable for d/c home Meds reconcilled Prescribed as needed F/u in office thursday Need close monitoring on inr. d/w RN also d/c off abx D/c time approx 40 min --Examining/documenting / coordating care Pt in agreement with all above Condition: Improved - Instructions Diet, Activity, Other Instructions: RESUME COUMADIN TOMM ThursdayJun Referrals: Tej Chamberlain MD [Primary Care Provider] - Disposition: HOME - Home Medications Comprehensive Discharge Medication List: Ambulatory Orders Buspirone HCl [Buspar] 15 mg PO TID 03/20/14 Anastrozole [Arimidex -] 1 mg PO DAILY #0 12/06/16 Gabapentin [Neurontin -] 100 mg PO Q8H #0 12/06/16 Quetiapine Fumarate [Seroquel -] 800 mg PO HS #0 12/06/16 Quinapril HCl [Accupril -] 10 mg PO DAILY #0 12/06/16 Albuterol 0.083% Nebulizer Blaire [Ventolin 0.083% Nebulizer Soln -] 1 amp NEB Q4H PRN amp 08/26/19 Levothyroxine [Synthroid -] 200 mcg PO DAILY@0700 tablet 08/26/19 Lorazepam [Ativan] 1 mg PO HS PRN 03/05/20 Rosuvastatin Calcium [Crestor] 10 mg PO DAILY 03/05/20 Ziprasidone [Geodon -] 40 mg PO BID 03/05/20 Insulin (Levemir) [Levemir Vial] 10 units SQ BID@0700,2200 05/07/20 Warfarin Na [Coumadin -] 8 tab PO DAILY 05/07/20 Pantoprazole Sodium [Protonix -] 40 mg PO DAILY #30 tablet.ec 05/10/20 Insulin Sliding Scale [Novolog Vial Sliding Scale -] 1 vial SQ ACHS units 05/14/20 Metoclopramide HCl [Reglan -] 5 mg PO TIDAC #90 tablet 05/14/20
[2020-07-09 12:32] VITALS: BP 114/57; PULSE 84; TEMP 97.6
[2020-07-09] MEDS ORDERED: WARFARIN NA 2 MG TABLET PO ONE (13:15)
[2020-07-09] MEDS ORDERED: WARFARIN NA 10 MG TABLET PO ONE (13:30)
== END 2020-07-09 13:57 | disposition home or self-care (01) | DRG 690 ==
LOC: JER 21:49 → JERBED 07-06 01:41 → J8W 07-06 03:40
PROVIDERS: ADMIT Internal Medicine; ATTEND Internal Medicine
DX: N39.0 Urinary tract infection, site not specified (principal); Z68.41 Body mass index [BMI] 40.0-44.9, adult; C50.919 Malignant neoplasm of unspecified site of unspecified female breast; J44.9 Chronic obstructive pulmonary disease, unspecified; E66.01 Morbid (severe) obesity due to excess calories; E78.5 Hyperlipidemia, unspecified; E03.9 Hypothyroidism, unspecified; R10.31 Right lower quadrant pain
CPT/HCPCS: 36415; 74176-TC; 80053; 81003; 82150; 82962; 83690; 85025; 85027; 85610; 87040; 87086; 93005; 93010; 94660; 97116-GP; 97161-GP; 99285-25; U0003

== ENCOUNTER 2021-01-01 15:41 | Emergency (ER) | payer OTHER, MEDICARE ==
[2021-01-01 16:05] VITALS: TEMP 98.3; BMI 47.5
[2021-01-01] MEDS ORDERED: LIDOCAINE 5% TOPICAL PATCH TP ONE (18:30)
[2021-01-01] MEDS ORDERED: LIDOCAINE 5% TOPICAL PATCH ONE (18:46)
[2021-01-01 20:45] VITALS: BP 152/86; PULSE 88
[2021-01-01] MEDS ORDERED: LIDOCAINE PATCH REMOVAL MC ONE (22:00)
== END 2021-01-01 20:44 | disposition home or self-care (01) ==
LOC: JER 15:41
DX: M54.2 Cervicalgia (principal); R42 Dizziness and giddiness; R51.9 Headache, unspecified
CPT/HCPCS: 70450-TC; 72125-TC; 99285-25

== ENCOUNTER 2021-07-17 18:08 | Inpatient (IN) | payer OTHER, MEDICARE ==
[2021-07-17] MEDS ORDERED: ACETAMINOPHEN 1000 MG/100 ML VIAL (NON FORMULARY) IVPB ONE (19:42)
[2021-07-17] MEDS ORDERED: LACTATED RINGERS SOLUTION 1000 ML INFUS.BAG IV ONE (19:42)
[2021-07-17] MEDS ORDERED: ACETAMINOPHEN INJECTION 100 ML IVPB ONE (19:46)
[2021-07-17 20:56] LABS: BASO % 1.1 % (0-2.0); LYMPH % 6.7 % (8-40); MCH 27.7 pg (25.7-33.7); MCHC 33.5 g/dl (32.0-36.0); MEAN CELL VOLUME 82.9 fl (80-96); MEAN PLT VOLUME 8.4 fl (7.5-11.1); MONO % 8.3 % (3.8-10.2); NEUT % 83.9 % (42.8-82.8); PLATELET COUNT 184 10^3/uL (134-434); RBC 3.98 M/mm3 (3.60-5.2); WHITE BLOOD COUNT 16.3 K/mm3 (4.0-10.0)
[2021-07-17] MEDS ORDERED: CEFTRIAXONE 1,000 MG in DEXTROSE 5%-WATER - 50 ML IVPB ONE (21:02)
[2021-07-17 21:03] LABS: INR 2.86 (0.83-1.09); PROTHROMBIN TIME (PATIENT) 33.6 SEC (9.7-13.0)
[2021-07-17 21:06] LABS: ACTIVATED PTT 42.3 SECONDS (25.2-36.5)
[2021-07-17 21:17] LABS: CHLORIDE 98 mmol/L (98-107); SODIUM 132 mmol/L (136-145)
[2021-07-17 21:19] LABS: CALCIUM 8.2 mg/dL (8.5-10.1)
[2021-07-17 21:20] LABS: ALBUMIN 2.9 g/dl (3.4-5.0); ANION GAP 10 MMOL/L (8-16); BLOOD UREA NITROGEN 23.5 mg/dL (7-18); CO2 24 mmol/L (21-32); GLUCOSE,RANDOM 285 mg/dL (74-106)
[2021-07-17 21:22] LABS: BILIRUBIN,DIRECT 0.3 mg/dL (0.0-0.2)
[2021-07-17 21:23] LABS: CREATININE 1.8 mg/dL (0.55-1.3); SGOT/AST 12 U/L (15-37); SGPT/ALT 21 U/L (13-61)
[2021-07-17 21:24] LABS: BILIRUBIN,TOTAL 0.8 mg/dL (0.2-1); TOT PROT 6.8 g/dl (6.4-8.2)
[2021-07-17 21:25] LABS: ALK PHOS 100 U/L (45-117)
[2021-07-17 21:26] LABS: LDH 259 U/L (84-246)
[2021-07-17 21:52] LABS: LACTIC ACID 2.5 mmol/L (0.4-2.0)
[2021-07-17 22:03] LABS: EPI CELLS 5 /uL (0-25.1); HYALINE CASTS 3 /uL (0-3.1); PH,URINE 5.5 (5.0-8.0); URINE APPEARANCE TURBID; URINE BACTERIA >9,000 /uL (0-1359); URINE BILIRUBIN NEGATIVE (NEGATIVE); URINE COLOR DK YELLOW; URINE GLUCOSE (UA) NEGATIVE (NEGATIVE); URINE KETONE NEGATIVE (NEGATIVE); URINE LEUK ESTERASE 3+ (NEGATIVE); URINE NITRITE POSITIVE (NEGATIVE); URINE PROTEIN 4+ (NEGATIVE); URINE UROBILINOGEN 0.2 mg/dL (0.2-1.0); URINE WBC 13118 /uL (0-25.8)
[2021-07-17] MEDS ORDERED: CEFTRIAXONE 1 GM/50 ML BAG ONE (22:17)
[2021-07-17 22:49] LABS: URINE RBC 312.4 /uL (0-23.9)
[2021-07-18] MEDS ORDERED: LORazepam 1 MG TABLET PO PRN ×2 (01:23→03:18)
[2021-07-18] MEDS ORDERED: ALBUTEROL SO4 0.083% IH SOL 2.5 MG/3 ML VIAL.NEB. NEB PRN ×2 (01:23→03:14)
[2021-07-18 01:52] LABS: VENOUS BASE EXCESS 1.2 mmol/L (-2-2); VENOUS O2 SATURATION 22.6 % (70-80); VENOUS PCO2 52.3 mmHg (38-52); VENOUS PH 7.342 (7.310-7.410)
[2021-07-18] MEDS ORDERED: ONDANSETRON 4 MG/2 ML VIAL IVPUSH ONE ×2 (02:19→03:15)
[2021-07-18] MEDS ORDERED: ACETAMINOPHEN 1000 MG/100 ML VIAL (NON FORMULARY) IVPB PRN (03:17)
[2021-07-18] MEDS: ACETAMINOPHEN 1000 MG/100 ML VIAL (NON FORMULARY) IVPB PRN ×2 (03:42→13:41)
[2021-07-18] MEDS ORDERED: BUSPIRONE HCL 15 MG PO SCH (06:00)
[2021-07-18] MEDS ORDERED: LEVOTHYROXINE NA 200 MCG TABLET PO SCH (07:00)
[2021-07-18] MEDS ORDERED: PT OWN MED DRAWER 7, Y5N ONE ×5 (07:00→21:09)
[2021-07-18] MEDS: BUSPIRONE HCL 10 MG, BUSPIRONE HCL 5 MG PO SCH ×3 (07:02→21:44)
[2021-07-18] MEDS: LEVOTHYROXINE NA 200 MCG TABLET PO SCH (07:02)
[2021-07-18 09:00] LABS: BASO % 0.5 % (0-2.0); HEMATOCRIT 32.3 % (32.4-45.2); HEMOGLOBIN 10.8 GM/dL (10.7-15.3); LYMPH % 8.6 % (8-40); MCH 28.2 pg (25.7-33.7); MCHC 33.6 g/dl (32.0-36.0); MEAN PLT VOLUME 8.9 fl (7.5-11.1); NEUT % 81.9 % (42.8-82.8); PLATELET COUNT 166 10^3/uL (134-434); RBC 3.85 M/mm3 (3.60-5.2); RDW 15.9 % (11.6-15.6); WHITE BLOOD COUNT 15.5 K/mm3 (4.0-10.0)
[2021-07-18 09:04] LABS: INR 2.56 (0.83-1.09); PROTHROMBIN TIME (PATIENT) 30.6 SEC (9.7-13.0)
[2021-07-18 09:26] LABS: BLOOD UREA NITROGEN 24.9 mg/dL (7-18); CALCIUM 7.9 mg/dL (8.5-10.1)
[2021-07-18 09:29] LABS: CREATININE 1.6 mg/dL (0.55-1.3)
[2021-07-18 09:30] LABS: BILIRUBIN,TOTAL 0.8 mg/dL (0.2-1); TOT PROT 6.6 g/dl (6.4-8.2)
[2021-07-18 09:53] LABS: ALBUMIN 2.7 g/dl (3.4-5.0)
[2021-07-18] MEDS ORDERED: DEXTROSE 5%-WATER - 50 ML IVPB ONE (09:59)
[2021-07-18] MEDS ORDERED: cefTRIAXone SODIUM 1 GM VIAL ONE (09:59)
[2021-07-18] MEDS ORDERED: CEFTRIAXONE 1 GM in DEXTROSE 5%-WATER - 50 ML IVPB SCH (10:00)
[2021-07-18] MEDS: GABAPENTIN 100 MG CAPSULE PO SCH ×2 (10:11→21:44)
[2021-07-18] MEDS: ANASTROZOLE 1 MG TABLET PO SCH (12:10)
[2021-07-18] MEDS: INSULIN SLIDING SCALE (NOVOLOG) 1 VIAL SQ SCH ×3 (12:11→21:54)
[2021-07-18] MEDS ORDERED: DEXTROSE 5%-WATER 100 ML IVPB ONE (17:49)
[2021-07-18] MEDS ORDERED: PIPERACILLIN/TAZOBACTAM 4.5 GM VIAL IVPB ONE (17:49)
[2021-07-18] MEDS: WARFARIN NA 2 MG TABLET PO SCH (17:56)
[2021-07-18] MEDS: PIPERACILLIN/TAZOB 4.5 GM 4.5 GM in DEXTROSE 5%-WATER 100 ML IVPB SCH (17:57)
[2021-07-18] MEDS: ZIPRASIDONE 20 MG CAPSULE PO SCH (17:57)
[2021-07-18] MEDS ORDERED: QUEtiapine FUMARATE 200 MG TABLET ONE (21:08)
[2021-07-18] MEDS ORDERED: QUEtiapine FUMARATE 100 MG TABLET (FP) ONE (21:08)
[2021-07-18] MEDS: ROSUVASTATIN CA 10 MG TABLET (FP) PO SCH (21:44)
[2021-07-18] MEDS: INSULIN (LEVEMIR) 100 UNITS/ML UNITS SQ SCH (21:44)
[2021-07-18] MEDS: QUETIAPINE FUMARATE PO SCH (21:45)
[2021-07-18] MEDS ORDERED: QUEtiapine FUMARATE 400 MG TABLET PO SCH (22:00)
[2021-07-19] MEDS ORDERED: PIPERACILLIN/TAZOBACTAM 4.5 GM VIAL IVPB ONE ×2 (01:56→09:09)
[2021-07-19] MEDS ORDERED: DEXTROSE 5%-WATER 100 ML IVPB ONE ×2 (01:56→09:09)
[2021-07-19] MEDS: PIPERACILLIN/TAZOB 4.5 GM 4.5 GM in DEXTROSE 5%-WATER 100 ML IVPB SCH ×2 (02:10→09:18)
[2021-07-19] MEDS ORDERED: PT OWN MED DRAWER 7, Y5N ONE ×5 (05:21→21:38)
[2021-07-19] MEDS: BUSPIRONE HCL 10 MG, BUSPIRONE HCL 5 MG PO SCH ×3 (05:53→22:35)
[2021-07-19] MEDS: INSULIN SLIDING SCALE (NOVOLOG) 1 VIAL SQ SCH ×4 (06:07→22:35)
[2021-07-19] MEDS: INSULIN (LEVEMIR) 100 UNITS/ML UNITS SQ SCH ×2 (06:07→22:35)
[2021-07-19] MEDS: LEVOTHYROXINE NA 200 MCG TABLET PO SCH (06:08)
[2021-07-19] MEDS ORDERED: INSULIN (NOVOLOG) ASPART 100 UNITS/ML 10ML VIAL ONE ×2 (06:15→11:55)
[2021-07-19 08:37] LABS: HEMOGLOBIN 10.1 GM/dL (10.7-15.3); MCH 28.1 pg (25.7-33.7); MCHC 33.7 g/dl (32.0-36.0); MEAN CELL VOLUME 83.4 fl (80-96); MEAN PLT VOLUME 8.4 fl (7.5-11.1); PLATELET COUNT 181 10^3/uL (134-434); RDW 15.7 % (11.6-15.6)
[2021-07-19 08:44] LABS: INR 2.9 (0.83-1.09)
[2021-07-19 08:57] LABS: ALBUMIN 2.4 g/dl (3.4-5.0); BLOOD UREA NITROGEN 25.7 mg/dL (7-18)
[2021-07-19 09:01] LABS: CREATININE 1.8 mg/dL (0.55-1.3)
[2021-07-19 09:02] LABS: BILIRUBIN,TOTAL 0.5 mg/dL (0.2-1); TOT PROT 6.3 g/dl (6.4-8.2)
[2021-07-19] MEDS: ZIPRASIDONE 20 MG CAPSULE PO SCH (09:17)
[2021-07-19] MEDS: ANASTROZOLE 1 MG TABLET PO SCH (09:17)
[2021-07-19] MEDS: PANTOPRAZOLE 40 MG TABLET PO SCH (09:17)
[2021-07-19] MEDS: GABAPENTIN 100 MG CAPSULE PO SCH ×2 (09:17→22:35)
[2021-07-19 10:00] LABS: ANISOCYTOSIS 1+; MACROCYTOSIS 0; OVALOCYTE 1+; PLATELET ESTIMATE NORMAL
[2021-07-19] MEDS: ALBUTEROL SO4 0.083% IH SOL 2.5 MG/3 ML VIAL.NEB. NEB SCH ×3 (15:02→20:10)
[2021-07-19] MEDS ORDERED: DEXTROSE 5%-WATER - 50 ML IVPB ONE (17:39)
[2021-07-19] MEDS ORDERED: PIPERACILLIN/TAZOBACTAM 3.375 GM VIAL IVPB ONE (17:39)
[2021-07-19] MEDS: WARFARIN NA 2 MG TABLET PO SCH (17:45)
[2021-07-19] MEDS: PIPERACILLIN/TAZOB 3.375 GM 3.375 GM in DEXTROSE 5%-WATER - 50 ML IVPB SCH (17:45)
[2021-07-19 18:24] VITALS: BMI 45.9
[2021-07-19] MEDS ORDERED: QUEtiapine FUMARATE 100 MG TABLET (FP) ONE (21:37)
[2021-07-19] MEDS ORDERED: QUEtiapine FUMARATE 200 MG TABLET ONE (21:38)
[2021-07-19] MEDS: ROSUVASTATIN CA 10 MG TABLET (FP) PO SCH (22:35)
[2021-07-19] MEDS: QUETIAPINE FUMARATE PO SCH (22:36)
[2021-07-20] MEDS ORDERED: DEXTROSE 5%-WATER - 50 ML IVPB ONE ×3 (01:33→17:47)
[2021-07-20] MEDS ORDERED: PIPERACILLIN/TAZOBACTAM 3.375 GM VIAL IVPB ONE ×3 (01:33→17:47)
[2021-07-20] MEDS: PIPERACILLIN/TAZOB 3.375 GM 3.375 GM in DEXTROSE 5%-WATER - 50 ML IVPB SCH ×3 (01:45→18:02)
[2021-07-20] MEDS ORDERED: PT OWN MED DRAWER 7, Y5N ONE ×3 (06:21→17:47)
[2021-07-20] MEDS: BUSPIRONE HCL 10 MG, BUSPIRONE HCL 5 MG PO SCH ×3 (06:47→21:48)
[2021-07-20] MEDS: INSULIN (LEVEMIR) 100 UNITS/ML UNITS SQ SCH ×2 (06:48→21:51)
[2021-07-20] MEDS: INSULIN SLIDING SCALE (NOVOLOG) 1 VIAL SQ SCH ×4 (06:48→21:51)
[2021-07-20] MEDS: LEVOTHYROXINE NA 200 MCG TABLET PO SCH (06:49)
[2021-07-20] MEDS ORDERED: INSULIN (NOVOLOG) ASPART 100 UNITS/ML 10ML VIAL ONE (07:02)
[2021-07-20] MEDS: ALBUTEROL SO4 0.083% IH SOL 2.5 MG/3 ML VIAL.NEB. NEB SCH ×3 (07:30→19:21)
[2021-07-20 08:12] LABS: INR 2.68 (0.83-1.09)
[2021-07-20] MEDS: PANTOPRAZOLE 40 MG TABLET PO SCH (10:30)
[2021-07-20] MEDS: ANASTROZOLE 1 MG TABLET PO SCH (10:30)
[2021-07-20] MEDS: GABAPENTIN 100 MG CAPSULE PO SCH ×2 (10:30→21:48)
[2021-07-20] MEDS: WARFARIN NA 2 MG TABLET PO SCH (17:58)
[2021-07-20] MEDS ORDERED: QUEtiapine FUMARATE 100 MG TABLET (FP) ONE (21:42)
[2021-07-20] MEDS ORDERED: QUEtiapine FUMARATE 200 MG TABLET ONE (21:42)
[2021-07-20] MEDS: QUETIAPINE FUMARATE PO SCH (21:48)
[2021-07-20] MEDS: ROSUVASTATIN CA 10 MG TABLET (FP) PO SCH (21:48)
[2021-07-21] MEDS ORDERED: PIPERACILLIN/TAZOBACTAM 3.375 GM VIAL IVPB ONE ×3 (01:33→17:30)
[2021-07-21] MEDS ORDERED: DEXTROSE 5%-WATER - 50 ML IVPB ONE ×3 (01:33→17:30)
[2021-07-21] MEDS: PIPERACILLIN/TAZOB 3.375 GM 3.375 GM in DEXTROSE 5%-WATER - 50 ML IVPB SCH ×3 (02:06→18:24)
[2021-07-21] MEDS ORDERED: PT OWN MED DRAWER 7, Y5N ONE ×4 (06:18→21:15)
[2021-07-21] MEDS: BUSPIRONE HCL 10 MG, BUSPIRONE HCL 5 MG PO SCH ×3 (06:30→21:20)
[2021-07-21] MEDS: LEVOTHYROXINE NA 200 MCG TABLET PO SCH (06:30)
[2021-07-21] MEDS: INSULIN (LEVEMIR) 100 UNITS/ML UNITS SQ SCH ×2 (06:30→21:20)
[2021-07-21] MEDS: INSULIN SLIDING SCALE (NOVOLOG) 1 VIAL SQ SCH ×4 (06:31→21:20)
[2021-07-21] MEDS: ALBUTEROL SO4 0.083% IH SOL 2.5 MG/3 ML VIAL.NEB. NEB SCH ×3 (07:44→19:41)
[2021-07-21 08:07] LABS: INR 2.78 (0.83-1.09); PROTHROMBIN TIME (PATIENT) 32.6 SEC (9.7-13.0)
[2021-07-21 08:26] LABS: CALCIUM 8.7 mg/dL (8.5-10.1)
[2021-07-21 08:27] LABS: BLOOD UREA NITROGEN 22.4 mg/dL (7-18)
[2021-07-21 08:30] LABS: CREATININE 1.4 mg/dL (0.55-1.3)
[2021-07-21] MEDS: ANASTROZOLE 1 MG TABLET PO SCH (09:22)
[2021-07-21] MEDS: GABAPENTIN 100 MG CAPSULE PO SCH ×2 (09:22→21:19)
[2021-07-21] MEDS: PANTOPRAZOLE 40 MG TABLET PO SCH (09:22)
[2021-07-21] MEDS: WARFARIN NA 2 MG TABLET PO SCH (17:33)
[2021-07-21] MEDS ORDERED: QUEtiapine FUMARATE 100 MG TABLET (FP) ONE (21:14)
[2021-07-21] MEDS ORDERED: QUEtiapine FUMARATE 200 MG TABLET ONE (21:15)
[2021-07-21] MEDS: ROSUVASTATIN CA 10 MG TABLET (FP) PO SCH (21:20)
[2021-07-21] MEDS: QUETIAPINE FUMARATE PO SCH (21:20)
[2021-07-22] MEDS ORDERED: PIPERACILLIN/TAZOBACTAM 3.375 GM VIAL IVPB ONE (01:31)
[2021-07-22] MEDS ORDERED: DEXTROSE 5%-WATER - 50 ML IVPB ONE (01:31)
[2021-07-22] MEDS: PIPERACILLIN/TAZOB 3.375 GM 3.375 GM in DEXTROSE 5%-WATER - 50 ML IVPB SCH (01:48)
[2021-07-22] MEDS ORDERED: PT OWN MED DRAWER 7, Y5N ONE ×5 (05:08→20:22)
[2021-07-22] MEDS: INSULIN (LEVEMIR) 100 UNITS/ML UNITS SQ SCH ×2 (06:29→21:18)
[2021-07-22] MEDS: INSULIN SLIDING SCALE (NOVOLOG) 1 VIAL SQ SCH ×4 (06:29→21:17)
[2021-07-22] MEDS: LEVOTHYROXINE NA 200 MCG TABLET PO SCH (06:30)
[2021-07-22] MEDS ORDERED: INSULIN (NOVOLOG) ASPART 100 UNITS/ML 10ML VIAL ONE (06:36)
[2021-07-22] MEDS: BUSPIRONE HCL 10 MG, BUSPIRONE HCL 5 MG PO SCH ×3 (07:06→21:04)
[2021-07-22 07:36] LABS: INR 2.06 (0.83-1.09); PROTHROMBIN TIME (PATIENT) 24.4 SEC (9.7-13.0)
[2021-07-22] MEDS: ALBUTEROL SO4 0.083% IH SOL 2.5 MG/3 ML VIAL.NEB. NEB SCH ×3 (07:36→19:55)
[2021-07-22] MEDS ORDERED: PIPERACILLIN/TAZOBACTAM 4.5 GM VIAL IVPB ONE ×2 (10:09→17:01)
[2021-07-22] MEDS ORDERED: DEXTROSE 5%-WATER 100 ML IVPB ONE ×2 (10:09→17:02)
[2021-07-22] MEDS: GABAPENTIN 100 MG CAPSULE PO SCH ×2 (10:22→21:05)
[2021-07-22] MEDS: PANTOPRAZOLE 40 MG TABLET PO SCH (10:22)
[2021-07-22] MEDS: PIPERACILLIN/TAZOB 4.5 GM 4.5 GM in DEXTROSE 5%-WATER 100 ML IVPB SCH ×2 (10:22→17:13)
[2021-07-22] MEDS: ANASTROZOLE 1 MG TABLET PO SCH (10:22)
[2021-07-22] MEDS ORDERED: WARFARIN NA 5 MG TABLET PO SCH (18:00)
[2021-07-22] MEDS ORDERED: QUEtiapine FUMARATE 100 MG TABLET (FP) ONE (20:19)
[2021-07-22] MEDS ORDERED: QUEtiapine FUMARATE 200 MG TABLET ONE (20:19)
[2021-07-22] MEDS: ROSUVASTATIN CA 10 MG TABLET (FP) PO SCH (21:04)
[2021-07-22] MEDS: QUETIAPINE FUMARATE PO SCH (21:05)
[2021-07-23] MEDS ORDERED: DEXTROSE 5%-WATER 100 ML IVPB ONE ×3 (01:43→16:42)
[2021-07-23] MEDS ORDERED: PIPERACILLIN/TAZOBACTAM 4.5 GM VIAL IVPB ONE ×3 (01:43→16:42)
[2021-07-23] MEDS: PIPERACILLIN/TAZOB 4.5 GM 4.5 GM in DEXTROSE 5%-WATER 100 ML IVPB SCH ×3 (01:53→17:06)
[2021-07-23] MEDS ORDERED: PT OWN MED DRAWER 7, Y5N ONE ×5 (05:49→20:38)
[2021-07-23] MEDS: BUSPIRONE HCL 10 MG, BUSPIRONE HCL 5 MG PO SCH ×3 (06:09→21:23)
[2021-07-23] MEDS: LEVOTHYROXINE NA 200 MCG TABLET PO SCH (06:09)
[2021-07-23] MEDS: INSULIN SLIDING SCALE (NOVOLOG) 1 VIAL SQ SCH ×4 (06:12→21:27)
[2021-07-23] MEDS: INSULIN (LEVEMIR) 100 UNITS/ML UNITS SQ SCH ×2 (06:13→21:28)
[2021-07-23] MEDS: ALBUTEROL SO4 0.083% IH SOL 2.5 MG/3 ML VIAL.NEB. NEB SCH ×3 (07:40→19:40)
[2021-07-23 08:22] LABS: HEMATOCRIT 30.8 % (32.4-45.2); HEMOGLOBIN 10.3 GM/dL (10.7-15.3); MCH 28.3 pg (25.7-33.7); MCHC 33.4 g/dl (32.0-36.0); MEAN CELL VOLUME 84.6 fl (80-96); MEAN PLT VOLUME 8.2 fl (7.5-11.1); PLATELET COUNT 346 10^3/uL (134-434); RBC 3.64 M/mm3 (3.60-5.2); RDW 16.5 % (11.6-15.6); WHITE BLOOD COUNT 9.9 K/mm3 (4.0-10.0)
[2021-07-23 08:26] LABS: INR 1.73 (0.83-1.09); PROTHROMBIN TIME (PATIENT) 20.6 SEC (9.7-13.0)
[2021-07-23 08:50] LABS: ALBUMIN 2.7 g/dl (3.4-5.0); BLOOD UREA NITROGEN 25.1 mg/dL (7-18); CALCIUM 9.3 mg/dL (8.5-10.1)
[2021-07-23 08:54] LABS: CREATININE 1.5 mg/dL (0.55-1.3)
[2021-07-23 08:55] LABS: BILIRUBIN,TOTAL 0.4 mg/dL (0.2-1); TOT PROT 7.2 g/dl (6.4-8.2)
[2021-07-23 09:31] LABS: ANISOCYTOSIS 2+; MACROCYTOSIS 0; PLATELET ESTIMATE NORMAL
[2021-07-23] MEDS: PANTOPRAZOLE 40 MG TABLET PO SCH (09:33)
[2021-07-23] MEDS: GABAPENTIN 100 MG CAPSULE PO SCH ×2 (09:33→21:24)
[2021-07-23] MEDS: ANASTROZOLE 1 MG TABLET PO SCH (09:34)
[2021-07-23] MEDS ORDERED: WARFARIN NA 5 MG TABLET PO SCH (09:42)
[2021-07-23] MEDS ORDERED: INSULIN (NOVOLOG) ASPART 100 UNITS/ML 10ML VIAL ONE ×2 (12:10→17:16)
[2021-07-23] MEDS ORDERED: WARFARIN NA 5 MG TABLET ONE (16:58)
[2021-07-23] MEDS ORDERED: WARFARIN NA 2 MG TABLET ONE (16:58)
[2021-07-23] MEDS: WARFARIN NA 5 MG, WARFARIN NA 2 MG PO SCH (17:06)
[2021-07-23] MEDS ORDERED: QUEtiapine FUMARATE 100 MG TABLET (FP) ONE (20:38)
[2021-07-23] MEDS ORDERED: QUEtiapine FUMARATE 200 MG TABLET ONE (20:38)
[2021-07-23] MEDS: ROSUVASTATIN CA 10 MG TABLET (FP) PO SCH (21:23)
[2021-07-23] MEDS: QUETIAPINE FUMARATE PO SCH (21:24)
[2021-07-24] MEDS ORDERED: DEXTROSE 5%-WATER 100 ML IVPB ONE ×3 (00:09→17:20)
[2021-07-24] MEDS ORDERED: PIPERACILLIN/TAZOBACTAM 4.5 GM VIAL IVPB ONE ×3 (00:09→17:20)
[2021-07-24] MEDS: PIPERACILLIN/TAZOB 4.5 GM 4.5 GM in DEXTROSE 5%-WATER 100 ML IVPB SCH ×3 (01:32→17:23)
[2021-07-24] MEDS: LEVOTHYROXINE NA 200 MCG TABLET PO SCH (06:00)
[2021-07-24] MEDS: BUSPIRONE HCL 10 MG, BUSPIRONE HCL 5 MG PO SCH ×3 (06:00→21:47)
[2021-07-24] MEDS: INSULIN SLIDING SCALE (NOVOLOG) 1 VIAL SQ SCH ×4 (06:02→21:52)
[2021-07-24] MEDS: INSULIN (LEVEMIR) 100 UNITS/ML UNITS SQ SCH ×2 (06:03→21:51)
[2021-07-24] MEDS: ALBUTEROL SO4 0.083% IH SOL 2.5 MG/3 ML VIAL.NEB. NEB SCH (08:35)
[2021-07-24 08:52] LABS: INR 1.7 (0.83-1.09); PROTHROMBIN TIME (PATIENT) 20.6 SEC (9.7-13.0)
[2021-07-24] MEDS: PANTOPRAZOLE 40 MG TABLET PO SCH (09:47)
[2021-07-24] MEDS: GABAPENTIN 100 MG CAPSULE PO SCH ×2 (09:47→21:46)
[2021-07-24] MEDS: ANASTROZOLE 1 MG TABLET PO SCH (09:48)
[2021-07-24] MEDS ORDERED: WARFARIN NA 2 MG TABLET ONE (17:20)
[2021-07-24] MEDS ORDERED: WARFARIN NA 5 MG TABLET ONE (17:20)
[2021-07-24] MEDS: WARFARIN NA 5 MG, WARFARIN NA 2 MG PO SCH (17:23)
[2021-07-24] MEDS ORDERED: QUEtiapine FUMARATE 200 MG TABLET ONE (21:12)
[2021-07-24] MEDS ORDERED: QUEtiapine FUMARATE 100 MG TABLET (FP) ONE (21:12)
[2021-07-24] MEDS: ROSUVASTATIN CA 10 MG TABLET (FP) PO SCH (21:46)
[2021-07-24] MEDS: QUETIAPINE FUMARATE PO SCH (21:48)
[2021-07-25] MEDS ORDERED: DEXTROSE 5%-WATER 100 ML IVPB ONE ×3 (01:41→16:53)
[2021-07-25] MEDS ORDERED: PIPERACILLIN/TAZOBACTAM 4.5 GM VIAL IVPB ONE ×3 (01:41→16:52)
[2021-07-25] MEDS: PIPERACILLIN/TAZOB 4.5 GM 4.5 GM in DEXTROSE 5%-WATER 100 ML IVPB SCH ×3 (01:56→17:42)
[2021-07-25] MEDS: BUSPIRONE HCL 10 MG, BUSPIRONE HCL 5 MG PO SCH ×3 (06:37→21:45)
[2021-07-25] MEDS: LEVOTHYROXINE NA 200 MCG TABLET PO SCH (06:37)
[2021-07-25] MEDS: INSULIN (LEVEMIR) 100 UNITS/ML UNITS SQ SCH ×2 (06:40→21:45)
[2021-07-25] MEDS: INSULIN SLIDING SCALE (NOVOLOG) 1 VIAL SQ SCH ×4 (06:41→21:41)
[2021-07-25 08:14] LABS: INR 1.76 (0.83-1.09); PROTHROMBIN TIME (PATIENT) 20.9 SEC (9.7-13.0)
[2021-07-25] MEDS ORDERED: PT OWN MED DRAWER 7, Y5N ONE ×2 (10:12→13:46)
[2021-07-25] MEDS: PANTOPRAZOLE 40 MG TABLET PO SCH (10:14)
[2021-07-25] MEDS: ANASTROZOLE 1 MG TABLET PO SCH (10:19)
[2021-07-25] MEDS: GABAPENTIN 100 MG CAPSULE PO SCH ×2 (10:28→21:43)
[2021-07-25 10:50] LABS: HEMATOCRIT 31.9 % (32.4-45.2); HEMOGLOBIN 10.7 GM/dL (10.7-15.3); MCH 28.5 pg (25.7-33.7); MCHC 33.4 g/dl (32.0-36.0); MEAN CELL VOLUME 85.4 fl (80-96); MEAN PLT VOLUME 7.7 fl (7.5-11.1); PLATELET COUNT 414 10^3/uL (134-434); RBC 3.74 M/mm3 (3.60-5.2); RDW 16.4 % (11.6-15.6); WHITE BLOOD COUNT 10.2 K/mm3 (4.0-10.0)
[2021-07-25 11:11] LABS: ALBUMIN 2.9 g/dl (3.4-5.0); BLOOD UREA NITROGEN 23.9 mg/dL (7-18); CALCIUM 9.4 mg/dL (8.5-10.1)
[2021-07-25 11:14] LABS: CREATININE 1.4 mg/dL (0.55-1.3)
[2021-07-25 11:16] LABS: TOT PROT 7.3 g/dl (6.4-8.2)
[2021-07-25 11:19] LABS: BILIRUBIN,TOTAL 0.4 mg/dL (0.2-1)
[2021-07-25 13:59] LABS: ANISOCYTOSIS 1+; MACROCYTOSIS 0; OVALOCYTE 1+; PLATELET ESTIMATE NORMAL; TEAR DROP CELLS 1+
[2021-07-25] MEDS ORDERED: WARFARIN NA 5 MG TABLET PO SCH (15:40)
[2021-07-25] MEDS ORDERED: WARFARIN NA 5 MG TABLET ONE (16:52)
[2021-07-25] MEDS ORDERED: WARFARIN NA 3 MG TABLET ONE (16:52)
[2021-07-25] MEDS ORDERED: WARFARIN NA 5 MG, WARFARIN NA 3 MG PO SCH (18:00)
[2021-07-25] MEDS ORDERED: QUEtiapine FUMARATE 200 MG TABLET ONE (21:19)
[2021-07-25] MEDS ORDERED: QUEtiapine FUMARATE 100 MG TABLET (FP) ONE (21:19)
[2021-07-25] MEDS: ROSUVASTATIN CA 10 MG TABLET (FP) PO SCH (21:43)
[2021-07-25] MEDS: QUETIAPINE FUMARATE PO SCH (21:43)
[2021-07-26] MEDS ORDERED: PIPERACILLIN/TAZOBACTAM 4.5 GM VIAL IVPB ONE ×2 (02:50→09:37)
[2021-07-26] MEDS ORDERED: DEXTROSE 5%-WATER 100 ML IVPB ONE ×2 (02:51→09:37)
[2021-07-26] MEDS: PIPERACILLIN/TAZOB 4.5 GM 4.5 GM in DEXTROSE 5%-WATER 100 ML IVPB SCH ×2 (02:56→09:44)
[2021-07-26] MEDS: BUSPIRONE HCL 10 MG, BUSPIRONE HCL 5 MG PO SCH ×2 (06:46→13:16)
[2021-07-26] MEDS: LEVOTHYROXINE NA 200 MCG TABLET PO SCH (06:47)
[2021-07-26] MEDS: INSULIN SLIDING SCALE (NOVOLOG) 1 VIAL SQ SCH ×2 (06:51→11:37)
[2021-07-26] MEDS: INSULIN (LEVEMIR) 100 UNITS/ML UNITS SQ SCH (06:52)
[2021-07-26 07:42] VITALS: BP 132/76; PULSE 84; TEMP 97.7
[2021-07-26 08:13] LABS: INR 1.6 (0.83-1.09); PROTHROMBIN TIME (PATIENT) 19.4 SEC (9.7-13.0)
[2021-07-26 08:17] LABS: HEMATOCRIT 32.4 % (32.4-45.2); HEMOGLOBIN 10.9 GM/dL (10.7-15.3); MCH 28.6 pg (25.7-33.7); MCHC 33.6 g/dl (32.0-36.0); MEAN CELL VOLUME 85.1 fl (80-96); PLATELET COUNT 430 10^3/uL (134-434); RBC 3.81 M/mm3 (3.60-5.2); RDW 16.5 % (11.6-15.6)
[2021-07-26 08:41] LABS: BLOOD UREA NITROGEN 28.1 mg/dL (7-18); CALCIUM 9.4 mg/dL (8.5-10.1)
[2021-07-26 08:44] LABS: CREATININE 1.6 mg/dL (0.55-1.3)
[2021-07-26 08:46] LABS: BILIRUBIN,TOTAL 0.6 mg/dL (0.2-1); TOT PROT 7.5 g/dl (6.4-8.2)
[2021-07-26] MEDS ORDERED: PT OWN MED DRAWER 7, Y5N ONE ×2 (09:37→13:20)
[2021-07-26] MEDS: PANTOPRAZOLE 40 MG TABLET PO SCH (09:44)
[2021-07-26] MEDS: GABAPENTIN 100 MG CAPSULE PO SCH (09:44)
[2021-07-26] MEDS: ANASTROZOLE 1 MG TABLET PO SCH (09:44)
[2021-07-26 11:28] LABS: ANISOCYTOSIS 1+; MACROCYTOSIS 0; OVALOCYTE 1+; PLATELET ESTIMATE NORMAL
== END 2021-07-26 13:00 | DRG 872 ==
LOC: JER 18:08 → JERBED 22:05 → J8W 07-18 01:53
PROVIDERS: ADMIT Internal Medicine; ATTEND Internal Medicine
PROC: 05HC33Z Insertion of Infusion Device into Left Basilic Vein, Percutaneous Approach (ICD-10-PCS; principal; 2021-07-25)
PROC: B54NZZA Ultrasonography of Left Upper Extremity Veins, Guidance (ICD-10-PCS; 2021-07-25)
DX: A41.52 Sepsis due to Pseudomonas (principal); N17.9 Acute kidney failure, unspecified; N39.0 Urinary tract infection, site not specified; J96.11 Chronic respiratory failure with hypoxia; Z68.42 Body mass index [BMI] 45.0-49.9, adult; E78.5 Hyperlipidemia, unspecified; J44.9 Chronic obstructive pulmonary disease, unspecified; Z86.16 Personal history of COVID-19; Z86.718 Personal history of other venous thrombosis and embolism; Z79.01 Long term (current) use of anticoagulants; F25.0 Schizoaffective disorder, bipolar type; Z79.4 Long term (current) use of insulin; Z99.81 Dependence on supplemental oxygen; G47.33 Obstructive sleep apnea (adult) (pediatric); E03.9 Hypothyroidism, unspecified; E66.01 Morbid (severe) obesity due to excess calories; F31.9 Bipolar disorder, unspecified; F41.9 Anxiety disorder, unspecified; I12.9 Hypertensive chronic kidney disease with stage 1 through stage 4 chronic kidney disease, or unspecified chronic kidney disease; E11.22 Type 2 diabetes mellitus with diabetic chronic kidney disease; N18.9 Chronic kidney disease, unspecified; I25.10 Atherosclerotic heart disease of native coronary artery without angina pectoris; Z85.3 Personal history of malignant neoplasm of breast
CPT/HCPCS: 36415; 71045-TC-FY; 76775-TC; 76856-TC; 80048; 80053; 80061; 81003; 82248; 82550; 82728; 82803; 82962; 83036; 83605; 83615; 84439; 84443; 84484; 85025; 85610; 85730; 86140; 87040; 87086; 87186; 87804; 93005; 93010; 94010; 94640; 97116-GP; 97161-GP; 99285-25; C9803; J0131; U0003; U0005

== ENCOUNTER 2022-01-16 16:20 | Emergency (ER) | payer OTHER, MEDICARE ==
[2022-01-16 16:51] VITALS: BP 185/88; PULSE 98; TEMP 97.9; BMI 47.5
[2022-01-16] MEDS ORDERED: ASPIRIN 81 MG CHEWABLE TABLETS PO ONE (18:22)
[2022-01-16] MEDS ORDERED: ASPIRIN 81 MG CHEWABLE TABLETS ONE (19:56)
[2022-01-16 20:35] LABS: BASO % 0.3 % (0-2.0); EOS % 1.3 % (0-4.5); HEMATOCRIT 37.1 % (32.4-45.2); HEMOGLOBIN 12.6 GM/dL (10.7-15.3); LYMPH % 16.5 % (8-40); MCH 27.9 pg (25.7-33.7); MCHC 33.9 g/dl (32.0-36.0); MEAN CELL VOLUME 82.5 fl (80-96); MEAN PLT VOLUME 7.7 fl (7.5-11.1); MONO % 5.9 % (3.8-10.2); PLATELET COUNT 251 10^3/uL (134-434); RBC 4.49 M/mm3 (3.60-5.2); RDW 16.3 % (11.6-15.6); WHITE BLOOD COUNT 10.5 K/mm3 (4.0-10.0)
[2022-01-16 20:59] LABS: ALBUMIN 3.7 g/dl (3.4-5.0); BLOOD UREA NITROGEN 23.4 mg/dL (7-18); CALCIUM 9.8 mg/dL (8.5-10.1); MAGNESIUM 1.8 mg/dL (1.8-2.4)
[2022-01-16 21:02] LABS: CREATININE 1.2 mg/dL (0.55-1.3)
[2022-01-16 21:04] LABS: BILIRUBIN,TOTAL 0.3 mg/dL (0.2-1); TOT PROT 7.7 g/dl (6.4-8.2)
== END 2022-01-16 22:30 | disposition home or self-care (01) ==
LOC: JER 16:20 → JERFT 16:20 → JER 22:30
DX: M25.511 Pain in right shoulder (principal)
CPT/HCPCS: 71046-TC-FY; 73200-TC-RT; 80053; 83735; 85025; 99285-25

== ENCOUNTER 2022-06-08 01:44 | Inpatient (IN) | payer OTHER, MEDICARE ==
[2022-06-08] MEDS ORDERED: FAMOTIDINE 20 MG/50 ML IVPB 20 MG/50 ML MG IVPB ONE (03:14)
[2022-06-08] MEDS ORDERED: morphine CARPU-JECT 4 MG/1 ML DISP.SYRIN IVPUSH ONE (04:23)
[2022-06-08] MEDS ORDERED: SODIUM CHLORIDE 0.9% 500 ML INFUS.BAG IV ONE (04:25)
[2022-06-08] MEDS ORDERED: ONDANSETRON 4 MG/2 ML VIAL IVPUSH ONE (04:39)
[2022-06-08] MEDS ORDERED: FAMOTIDINE 10 MG/ML VIAL IVPB ONE (04:42)
[2022-06-08] MEDS ORDERED: morphine SULFATE 4 MG/ML VIAL ONE ×2 (04:42→15:19)
[2022-06-08] MEDS ORDERED: ONDANSETRON 4 MG/2 ML VIAL ONE (04:42)
[2022-06-08 04:53] LABS: BASO % 0.9 % (0-2.0); EOS % 0.9 % (0-4.5); HEMATOCRIT 36.4 % (32.4-45.2); LYMPH % 9.9 % (8-40); MCH 27.1 pg (25.7-33.7); MEAN CELL VOLUME 82.1 fl (80-96); MONO % 8.3 % (3.8-10.2); PLATELET COUNT 252 10^3/uL (134-434); RBC 4.43 M/mm3 (3.60-5.2); RDW 15.3 % (11.6-15.6); WHITE BLOOD COUNT 15.9 K/mm3 (4.0-10.0)
[2022-06-08 05:05] LABS: INR 3.57 (0.83-1.09); PROTHROMBIN TIME (PATIENT) 41.6 SEC (9.7-13.0)
[2022-06-08 05:08] LABS: ACTIVATED PTT 45.5 SECONDS (25.2-36.5)
[2022-06-08 05:14] LABS: ALBUMIN 3.3 g/dl (3.4-5.0); BLOOD UREA NITROGEN 17.5 mg/dL (7-18); CALCIUM 9.2 mg/dL (8.5-10.1); MAGNESIUM 1.7 mg/dL (1.8-2.4)
[2022-06-08 05:17] LABS: CREATININE 1.3 mg/dL (0.55-1.3)
[2022-06-08 05:19] LABS: BILIRUBIN,TOTAL 0.6 mg/dL (0.2-1); TOT PROT 7.2 g/dl (6.4-8.2)
[2022-06-08 06:16] LABS: EPI CELLS 28 /uL (0-25.1); HYALINE CASTS 13 /uL (0-3.1); URINE APPEARANCE TURBID; URINE BACTERIA >9,000 /uL (0-1359); URINE BILIRUBIN NEGATIVE (NEGATIVE); URINE COLOR YELLOW; URINE GLUCOSE (UA) NEGATIVE (NEGATIVE); URINE KETONE NEGATIVE (NEGATIVE); URINE LEUK ESTERASE 3+ (NEGATIVE); URINE NITRITE POSITIVE (NEGATIVE); URINE PROTEIN 2+ (NEGATIVE); URINE RBC 241 /uL (0-23.9); URINE UROBILINOGEN 0.2 mg/dL (0.2-1.0); URINE WBC 20433 /uL (0-25.8)
[2022-06-08] MEDS ORDERED: CEFTRIAXONE 1 GM in DEXTROSE 5%-WATER - 100 ML IVPB ONE ×2 (06:22→06:58)
[2022-06-08] MEDS ORDERED: CEFTRIAXONE 1 GM/50 ML BAG ONE ×2 (06:54→07:33)
[2022-06-08] MEDS ORDERED: MAGNESIUM SULF 50% (8.12 MEQ/2 ML-1 GM VIAL) IVPB ONE (07:08)
[2022-06-08] MEDS ORDERED: MAGNESIUM 1GM/D5W - 1 GM/100 ML IVPB IVPB ONE (08:11)
[2022-06-08] MEDS ORDERED: morphine CARPU-JECT 2 MG/1 ML DISP.SYRIN IVPUSH ONE (08:19)
[2022-06-08] MEDS ORDERED: LORazepam 1 MG TABLET PO PRN (10:05)
[2022-06-08] MEDS ORDERED: ALBUTEROL SO4 0.083% IH SOL 2.5 MG/3 ML VIAL.NEB. NEB PRN (10:05)
[2022-06-08] MEDS ORDERED: ENOXAPARIN NA (PORCINE) 40 MG/0.4 ML DISP.SYRIN SQ SCH (10:15)
[2022-06-08] MEDS ORDERED: GABAPENTIN 100 MG CAPSULE ONE ×2 (10:27→14:09)
[2022-06-08] MEDS ORDERED: ENOXAPARIN NA (PORCINE) 40 MG/0.4 ML DISP.SYRIN SQ ONE (10:27)
[2022-06-08] MEDS: GABAPENTIN 100 MG CAPSULE PO SCH ×3 (10:38→22:16)
[2022-06-08] MEDS: SODIUM CHLORIDE 0.45% 1,000 ML IV SCH (10:38)
[2022-06-08] MEDS: INSULIN SLIDING SCALE (NOVOLOG) 1 VIAL SQ SCH ×3 (11:42→22:16)
[2022-06-08 12:07] LABS: YEAST NONE SEEN (NEGATIVE)
[2022-06-08] MEDS ORDERED: busPIRone HCL 5 MG TABLET ONE (14:09)
[2022-06-08] MEDS: busPIRone HCL 5 MG TABLET PO SCH ×2 (14:15→22:14)
[2022-06-08] MEDS ORDERED: morphine CARPU-JECT 4 MG/1 ML DISP.SYRIN IVPUSH PRN (15:17)
[2022-06-08] MEDS: ONDANSETRON 4 MG/2 ML VIAL IVPUSH PRN ×2 (15:30→22:18)
[2022-06-08] MEDS ORDERED: ATORVASTATIN CA 40 MG TABLET (FP) ONE (21:26)
[2022-06-08] MEDS ORDERED: levETIRAcetam 500 MG TABLET (FP) PO ONE (21:26)
[2022-06-08] MEDS ORDERED: ATORVASTATIN CA 80 MG TABLET (FP) ONE (21:27)
[2022-06-08] MEDS: INSULIN (LEVEMIR) 100 UNITS/ML UNITS SQ SCH (22:15)
[2022-06-08] MEDS: LIDOCAINE PATCH REMOVAL MC SCH (22:16)
[2022-06-08] MEDS: morphine SULFATE 4 MG/ML VIAL IVPUSH PRN (22:20)
[2022-06-09 04:06] VITALS: BMI 43.3
[2022-06-09] MEDS: busPIRone HCL 5 MG TABLET PO SCH ×3 (05:54→21:27)
[2022-06-09] MEDS: GABAPENTIN 100 MG CAPSULE PO SCH ×3 (05:55→21:28)
[2022-06-09] MEDS: INSULIN SLIDING SCALE (NOVOLOG) 1 VIAL SQ SCH ×4 (06:10→21:34)
[2022-06-09] MEDS: INSULIN (LEVEMIR) 100 UNITS/ML UNITS SQ SCH ×2 (06:11→21:28)
[2022-06-09] MEDS ORDERED: LEVOTHYROXINE NA 100 MCG TABLET (FP) PO SCH ×2 (07:00)
[2022-06-09] MEDS ORDERED: LIDOCAINE 5% TOPICAL PATCH TP SCH (10:00)
[2022-06-09] MEDS: ROSUVASTATIN CA 10 MG TABLET PO SCH (10:23)
[2022-06-09] MEDS: PANTOPRAZOLE 40 MG TABLET PO SCH (10:23)
[2022-06-09] MEDS: QUINAPRIL HCL 10 MG TABLET PO SCH (10:24)
[2022-06-09] MEDS: ANASTROZOLE 1 MG TABLET PO SCH (10:26)
[2022-06-09] MEDS: LIDOCAINE 5% TOPICAL PATCH TP SCH (10:30)
[2022-06-09] MEDS: SODIUM CHLORIDE 0.45% 1,000 ML IV SCH (10:32)
[2022-06-09 10:59] LABS: BASO % 0.4 % (0-2.0); EOS % 4.7 % (0-4.5); HEMATOCRIT 34.5 % (32.4-45.2); HEMOGLOBIN 11.2 GM/dL (10.7-15.3); LYMPH % 8.5 % (8-40); MCH 27.3 pg (25.7-33.7); MCHC 32.5 g/dl (32.0-36.0); MEAN CELL VOLUME 84.1 fl (80-96); MEAN PLT VOLUME 8.6 fl (7.5-11.1); MONO % 6.7 % (3.8-10.2); NEUT % 79.7 % (42.8-82.8); PLATELET COUNT 231 10^3/uL (134-434); RDW 15.7 % (11.6-15.6); WHITE BLOOD COUNT 12.1 K/mm3 (4.0-10.0)
[2022-06-09 11:05] LABS: INR 2.77 (0.83-1.09); PROTHROMBIN TIME (PATIENT) 32.2 SEC (9.7-13.0)
[2022-06-09 11:23] LABS: CALCIUM 8.9 mg/dL (8.5-10.1)
[2022-06-09 11:24] LABS: ALBUMIN 2.8 g/dl (3.4-5.0)
[2022-06-09 11:26] LABS: CREATININE 1.2 mg/dL (0.55-1.3)
[2022-06-09 11:28] LABS: BILIRUBIN,TOTAL 0.5 mg/dL (0.2-1); TOT PROT 6.6 g/dl (6.4-8.2)
[2022-06-09] MEDS ORDERED: WARFARIN NA 2 MG, WARFARIN NA 5 MG PO SCH (18:00)
[2022-06-09] MEDS ORDERED: WARFARIN NA 7.5 MG TABLET PO SCH (18:00)
[2022-06-09] MEDS: LIDOCAINE PATCH REMOVAL MC SCH (21:28)
[2022-06-09] MEDS: morphine SULFATE 4 MG/ML VIAL IVPUSH PRN (21:30)
[2022-06-10] MEDS: SODIUM CHLORIDE 0.45% 1,000 ML IV SCH ×2 (00:40→09:51)
[2022-06-10] MEDS ORDERED: LEVOTHYROXINE NA 100 MCG TABLET (FP) ONE (06:00)
[2022-06-10] MEDS ORDERED: LEVOTHYROXINE NA 125 MCG TABLET (FP) ONE (06:00)
[2022-06-10] MEDS: GABAPENTIN 100 MG CAPSULE PO SCH ×3 (06:16→21:55)
[2022-06-10] MEDS: busPIRone HCL 5 MG TABLET PO SCH ×3 (06:16→21:55)
[2022-06-10] MEDS: INSULIN (LEVEMIR) 100 UNITS/ML UNITS SQ SCH ×2 (06:16→21:58)
[2022-06-10] MEDS: LEVOTHYROXINE 125 MCG, LEVOTHYROXINE 100 MCG PO SCH (06:17)
[2022-06-10] MEDS: INSULIN SLIDING SCALE (NOVOLOG) 1 VIAL SQ SCH ×4 (06:21→21:59)
[2022-06-10] MEDS ORDERED: LEVOTHYROXINE NA 200 MCG TABLET PO SCH ×2 (07:00)
[2022-06-10] MEDS: ROSUVASTATIN CA 10 MG TABLET PO SCH (09:49)
[2022-06-10] MEDS: QUINAPRIL HCL 10 MG TABLET PO SCH (09:49)
[2022-06-10] MEDS: PANTOPRAZOLE 40 MG TABLET PO SCH (09:49)
[2022-06-10] MEDS: LIDOCAINE 5% TOPICAL PATCH TP SCH (09:50)
[2022-06-10] MEDS: ANASTROZOLE 1 MG TABLET PO SCH (09:50)
[2022-06-10 10:09] LABS: BASO % 0.8 % (0-2.0); EOS % 4.8 % (0-4.5); HEMATOCRIT 32.4 % (32.4-45.2); HEMOGLOBIN 10.7 GM/dL (10.7-15.3); INR 2.19 (0.83-1.09); LYMPH % 12.3 % (8-40); MCH 27.4 pg (25.7-33.7); MCHC 32.9 g/dl (32.0-36.0); MEAN CELL VOLUME 83.3 fl (80-96); MEAN PLT VOLUME 7.9 fl (7.5-11.1); MONO % 4.9 % (3.8-10.2); NEUT % 77.2 % (42.8-82.8); PLATELET COUNT 236 10^3/uL (134-434); PROTHROMBIN TIME (PATIENT) 25.4 SEC (9.7-13.0); RBC 3.89 M/mm3 (3.60-5.2); RDW 15.5 % (11.6-15.6); WHITE BLOOD COUNT 9.2 K/mm3 (4.0-10.0)
[2022-06-10 10:38] LABS: ALBUMIN 2.6 g/dl (3.4-5.0); BLOOD UREA NITROGEN 11.7 mg/dL (7-18); CALCIUM 8.3 mg/dL (8.5-10.1)
[2022-06-10 10:40] LABS: BILIRUBIN,TOTAL 0.4 mg/dL (0.2-1); TOT PROT 6.1 g/dl (6.4-8.2)
[2022-06-10] MEDS ORDERED: DEXTROSE 5%-WATER - 50 ML IVPB ONE (11:12)
[2022-06-10] MEDS ORDERED: cefTRIAXone SODIUM 1 GM VIAL ONE (11:12)
[2022-06-10] MEDS: CEFTRIAXONE 1 GM in DEXTROSE 5%-WATER - 50 ML IVPB SCH (11:15)
[2022-06-10] MEDS: WARFARIN NA 3 MG TABLET PO SCH (18:11)
[2022-06-10] MEDS: LIDOCAINE PATCH REMOVAL MC SCH (22:00)
[2022-06-11] MEDS: SODIUM CHLORIDE 0.45% 1,000 ML IV SCH ×3 (05:55→17:27)
[2022-06-11] MEDS ORDERED: LEVOTHYROXINE NA 125 MCG TABLET (FP) ONE (06:59)
[2022-06-11] MEDS ORDERED: LEVOTHYROXINE NA 100 MCG TABLET (FP) ONE (06:59)
[2022-06-11] MEDS: busPIRone HCL 5 MG TABLET PO SCH ×3 (07:02→21:34)
[2022-06-11] MEDS: LEVOTHYROXINE 125 MCG, LEVOTHYROXINE 100 MCG PO SCH (07:02)
[2022-06-11] MEDS: INSULIN (LEVEMIR) 100 UNITS/ML UNITS SQ SCH ×2 (07:03→21:35)
[2022-06-11] MEDS: GABAPENTIN 100 MG CAPSULE PO SCH ×3 (07:03→21:34)
[2022-06-11] MEDS: INSULIN SLIDING SCALE (NOVOLOG) 1 VIAL SQ SCH ×5 (07:04→21:36)
[2022-06-11 09:50] VITALS: RESP 20
[2022-06-11] MEDS ORDERED: cefTRIAXone SODIUM 1 GM VIAL ONE (09:56)
[2022-06-11] MEDS ORDERED: DEXTROSE 5%-WATER - 50 ML IVPB ONE (09:57)
[2022-06-11] MEDS: QUINAPRIL HCL 10 MG TABLET PO SCH (09:59)
[2022-06-11] MEDS: ANASTROZOLE 1 MG TABLET PO SCH (09:59)
[2022-06-11] MEDS: ROSUVASTATIN CA 10 MG TABLET PO SCH (10:00)
[2022-06-11] MEDS: CEFTRIAXONE 1 GM in DEXTROSE 5%-WATER - 50 ML IVPB SCH (10:00)
[2022-06-11] MEDS: LIDOCAINE 5% TOPICAL PATCH TP SCH (10:00)
[2022-06-11] MEDS: PANTOPRAZOLE 40 MG TABLET PO SCH (10:00)
[2022-06-11 11:22] LABS: INR 2.11 (0.83-1.09); PROTHROMBIN TIME (PATIENT) 24.5 SEC (9.7-13.0)
[2022-06-11] MEDS: WARFARIN NA 3 MG TABLET PO SCH (17:27)
[2022-06-11] MEDS: LIDOCAINE PATCH REMOVAL MC SCH (21:34)
[2022-06-12] MEDS ORDERED: LEVOTHYROXINE NA 125 MCG TABLET (FP) ONE (06:04)
[2022-06-12] MEDS ORDERED: LEVOTHYROXINE NA 100 MCG TABLET (FP) ONE (06:05)
[2022-06-12] MEDS: GABAPENTIN 100 MG CAPSULE PO SCH ×2 (06:06→14:08)
[2022-06-12] MEDS: busPIRone HCL 5 MG TABLET PO SCH ×2 (06:06→14:08)
[2022-06-12] MEDS: LEVOTHYROXINE 125 MCG, LEVOTHYROXINE 100 MCG PO SCH (06:06)
[2022-06-12] MEDS: SODIUM CHLORIDE 0.45% 1,000 ML IV SCH ×2 (06:13→11:21)
[2022-06-12] MEDS: INSULIN SLIDING SCALE (NOVOLOG) 1 VIAL SQ SCH ×3 (06:21→16:57)
[2022-06-12] MEDS: INSULIN (LEVEMIR) 100 UNITS/ML UNITS SQ SCH (06:21)
[2022-06-12] MEDS ORDERED: cefTRIAXone SODIUM 1 GM VIAL ONE (09:48)
[2022-06-12] MEDS ORDERED: DEXTROSE 5%-WATER - 50 ML IVPB ONE (09:48)
[2022-06-12] MEDS: CEFTRIAXONE 1 GM in DEXTROSE 5%-WATER - 50 ML IVPB SCH (09:49)
[2022-06-12] MEDS: ANASTROZOLE 1 MG TABLET PO SCH (10:05)
[2022-06-12] MEDS: LIDOCAINE 5% TOPICAL PATCH TP SCH (10:05)
[2022-06-12] MEDS: PANTOPRAZOLE 40 MG TABLET PO SCH (10:05)
[2022-06-12] MEDS: QUINAPRIL HCL 10 MG TABLET PO SCH (10:05)
[2022-06-12] MEDS: ROSUVASTATIN CA 10 MG TABLET PO SCH (10:06)
[2022-06-12 10:41] LABS: HEMATOCRIT 34.6 % (32.4-45.2); HEMOGLOBIN 11.3 GM/dL (10.7-15.3); MCH 27.4 pg (25.7-33.7); MCHC 32.8 g/dl (32.0-36.0); MEAN CELL VOLUME 83.6 fl (80-96); MEAN PLT VOLUME 7.9 fl (7.5-11.1); PLATELET COUNT 266 10^3/uL (134-434); RBC 4.14 M/mm3 (3.60-5.2); RDW 15.7 % (11.6-15.6); WHITE BLOOD COUNT 8.4 K/mm3 (4.0-10.0)
[2022-06-12 10:45] LABS: INR 2.72 (0.83-1.09); PROTHROMBIN TIME (PATIENT) 31.6 SEC (9.7-13.0)
[2022-06-12] MEDS ORDERED: INSULIN (NOVOLOG) ASPART 100 UNITS/ML 10ML VIAL ONE (11:31)
[2022-06-12 14:43] VITALS: BP 115/60; PULSE 80; TEMP 97.8
== END 2022-06-12 18:25 | disposition home or self-care (01) | DRG 392 ==
LOC: JER 01:44 → JERBED 06:19 → J6S 06-09 02:44
PROVIDERS: ADMIT Internal Medicine; ATTEND Internal Medicine
DX: K57.92 Diverticulitis of intestine, part unspecified, without perforation or abscess without bleeding (principal); N39.0 Urinary tract infection, site not specified; K62.5 Hemorrhage of anus and rectum; Z68.41 Body mass index [BMI] 40.0-44.9, adult; F20.9 Schizophrenia, unspecified; R56.9 Unspecified convulsions; E11.9 Type 2 diabetes mellitus without complications; J44.9 Chronic obstructive pulmonary disease, unspecified; I10 Essential (primary) hypertension; K21.9 Gastro-esophageal reflux disease without esophagitis; I25.10 Atherosclerotic heart disease of native coronary artery without angina pectoris; E78.5 Hyperlipidemia, unspecified; F41.9 Anxiety disorder, unspecified; G47.33 Obstructive sleep apnea (adult) (pediatric); E66.01 Morbid (severe) obesity due to excess calories; R10.32 Left lower quadrant pain
CPT/HCPCS: 36415; 71045-TC-FY; 74176-TC; 80053; 81003; 82728; 82962; 83036; 83540; 83550; 83605; 83690; 83735; 84443; 84484; 85025; 85027; 85610; 85651; 85730; 86140; 87086; 93005; 93010; 97116-GP; 97162-GP; 99285-25; C9803-CS; U0003; U0005

== ENCOUNTER 2022-11-03 18:30 | Inpatient (IN) | payer OTHER, MEDICARE ==
[2022-11-03] MEDS ORDERED: SODIUM CHLORIDE 500 ML IV STA (21:24)
[2022-11-03 22:06] LABS: BASO % 0.9 % (0-2.0); EOS % 0.2 % (0-4.5); HEMATOCRIT 28.1 % (32.4-45.2); HEMOGLOBIN 8.8 GM/dL (10.7-15.3); LYMPH % 6.3 % (8-40); MCHC 31.4 g/dl (32.0-36.0); MEAN CELL VOLUME 82.9 fl (80-96); MEAN PLT VOLUME 7.9 fl (7.5-11.1); MONO % 5.2 % (3.8-10.2); NEUT % 87.4 % (42.8-82.8); PLATELET COUNT 384 10^3/uL (134-434); RBC 3.39 M/mm3 (3.60-5.2); RDW 19.1 % (11.6-15.6); WHITE BLOOD COUNT 16.8 K/mm3 (4.0-10.0)
[2022-11-03 22:12] LABS: INR 2.28 (0.83-1.09); PROTHROMBIN TIME (PATIENT) 26.4 SEC (9.7-13.0)
[2022-11-03 22:15] LABS: ACTIVATED PTT 35.6 SECONDS (25.2-36.5)
[2022-11-03 22:28] LABS: CALCIUM 8.7 mg/dL (8.5-10.1)
[2022-11-03 22:29] LABS: ALBUMIN 2.2 g/dl (3.4-5.0); BLOOD UREA NITROGEN 56.9 mg/dL (7-18)
[2022-11-03 22:32] LABS: CREATININE 3.4 mg/dL (0.55-1.3)
[2022-11-03 22:33] LABS: TOT PROT 6.9 g/dl (6.4-8.2)
[2022-11-03 22:34] LABS: BILIRUBIN,TOTAL 0.4 mg/dL (0.2-1)
[2022-11-03] MEDS ORDERED: PIPERACILLIN/TAZOB 4.5 GM 4.5 GM in DEXTROSE 5%-WATER 100 ML IVPB ONE (23:40)
[2022-11-03 23:46] LABS: EPI CELLS 6 /uL (0-25.1); HYALINE CASTS 1 /uL (0-3.1); URINE APPEARANCE CLOUDY; URINE BACTERIA >9,000 /uL (0-1359); URINE BILIRUBIN NEGATIVE (NEGATIVE); URINE COLOR YELLOW; URINE GLUCOSE (UA) NEGATIVE (NEGATIVE); URINE KETONE NEGATIVE (NEGATIVE); URINE LEUK ESTERASE 3+ (NEGATIVE); URINE NITRITE NEGATIVE (NEGATIVE); URINE PROTEIN 2+ (NEGATIVE); URINE RBC 27 /uL (0-23.9); URINE UROBILINOGEN 0.2 mg/dL (0.2-1.0); URINE WBC 658 /uL (0-25.8)
[2022-11-04] MEDS: ALBUTEROL SO4 2.5/IPRATROPIUM 0.5 INH SOL 3 ML VIAL.NEB. NEB SCH ×3 (00:05→01:15)
[2022-11-04] MEDS ORDERED: ALBUTEROL SO4 2.5/IPRATROPIUM 0.5 INH SOL 3 ML VIAL.NEB. NEB ONE (00:52)
[2022-11-04] MEDS ORDERED: PIPERACILLIN/TAZOB 4.5 GM 4.5 GM/100 ML BAG IVPB ONE (02:07)
[2022-11-04] MEDS ORDERED: ALBUTEROL SO4 0.083% IH SOL 2.5 MG/3 ML VIAL.NEB. NEB PRN (05:05)
[2022-11-04] MEDS ORDERED: LEVOTHYROXINE NA 200 MCG TABLET PO SCH ×2 (07:00)
[2022-11-04] MEDS: INSULIN SLIDING SCALE (NOVOLOG) 1 VIAL SQ SCH ×4 (08:00→22:09)
[2022-11-04] MEDS: LEVOTHYROXINE 200 MCG, LEVOTHYROXINE 25 MCG PO SCH (09:30)
[2022-11-04] MEDS ORDERED: PIPERACILLIN/TAZOB 3.375 GM 3.375 GM in DEXTROSE 5%-WATER - 50 ML IVPB SCH (10:00)
[2022-11-04] MEDS ORDERED: WARFARIN NA 7.5 MG TABLET PO SCH ×2 (10:00)
[2022-11-04] MEDS ORDERED: QUEtiapine FUMARATE 400 MG TABLET PO SCH (10:00)
[2022-11-04 10:13] LABS: BASO % 0.6 % (0-2.0); EOS % 0.9 % (0-4.5); HEMATOCRIT 26.9 % (32.4-45.2); HEMOGLOBIN 8.5 GM/dL (10.7-15.3); LYMPH % 6.1 % (8-40); MCHC 31.5 g/dl (32.0-36.0); MEAN CELL VOLUME 82.6 fl (80-96); MEAN PLT VOLUME 8.3 fl (7.5-11.1); MONO % 7.7 % (3.8-10.2); NEUT % 84.7 % (42.8-82.8); PLATELET COUNT 339 10^3/uL (134-434); RBC 3.26 M/mm3 (3.60-5.2); RDW 18.9 % (11.6-15.6); WHITE BLOOD COUNT 14.6 K/mm3 (4.0-10.0)
[2022-11-04] MEDS ORDERED: LIDOCAINE 5% TOPICAL PATCH ONE (10:20)
[2022-11-04] MEDS ORDERED: GABAPENTIN 100 MG CAPSULE ONE ×3 (10:20→22:03)
[2022-11-04] MEDS ORDERED: PIPERACILLIN/TAZOB 3.375 GM 3.375 GM/50 ML BAG IVPB ONE (10:20)
[2022-11-04] MEDS: LIDOCAINE 5% TOPICAL PATCH TP SCH (10:30)
[2022-11-04] MEDS: QUEtiapine FUMARATE 200 MG TABLET PO SCH ×2 (10:30→22:09)
[2022-11-04] MEDS: ANASTROZOLE 1 MG TABLET PO SCH (10:30)
[2022-11-04] MEDS: GABAPENTIN 100 MG CAPSULE PO SCH ×3 (10:30→22:09)
[2022-11-04 10:45] LABS: BLOOD UREA NITROGEN 56.2 mg/dL (7-18)
[2022-11-04 10:47] LABS: ALBUMIN 2.1 g/dl (3.4-5.0); CALCIUM 8.4 mg/dL (8.5-10.1)
[2022-11-04 10:50] LABS: BILIRUBIN,TOTAL 0.5 mg/dL (0.2-1); CREATININE 3.3 mg/dL (0.55-1.3)
[2022-11-04 10:51] LABS: TOT PROT 6.4 g/dl (6.4-8.2)
[2022-11-04] MEDS ORDERED: WARFARIN NA 5 MG TABLET ONE (18:34)
[2022-11-04] MEDS ORDERED: WARFARIN NA 1 MG TABLET ONE (18:34)
[2022-11-04] MEDS ORDERED: PIPERACILLIN/TAZOB 2.25 GM 2.25 GM/50 ML BAG IVPB ONE (18:35)
[2022-11-04] MEDS ORDERED: busPIRone HCL 5 MG TABLET ONE (18:39)
[2022-11-04] MEDS: busPIRone HCL 5 MG TABLET PO PRN (18:41)
[2022-11-04] MEDS: PIPERACILLIN/TAZOB 2.25 GM 2.25 GM in DEXTROSE 5%-WATER - 50 ML IVPB SCH (19:02)
[2022-11-04] MEDS ORDERED: QUEtiapine FUMARATE 100 MG TABLET (FP) ONE (22:03)
[2022-11-04] MEDS ORDERED: ROSUVASTATIN CA 20 MG TABLET ONE (22:03)
[2022-11-04] MEDS: ROSUVASTATIN CA 10 MG TABLET PO SCH (22:09)
[2022-11-04] MEDS: LIDOCAINE PATCH REMOVAL MC SCH (22:09)
[2022-11-05] MEDS: PIPERACILLIN/TAZOB 2.25 GM 2.25 GM in DEXTROSE 5%-WATER - 50 ML IVPB SCH ×3 (03:47→17:11)
[2022-11-05] MEDS: GABAPENTIN 100 MG CAPSULE PO SCH ×3 (06:38→21:12)
[2022-11-05] MEDS: INSULIN SLIDING SCALE (NOVOLOG) 1 VIAL SQ SCH ×4 (06:39→21:14)
[2022-11-05] MEDS: LEVOTHYROXINE 200 MCG, LEVOTHYROXINE 25 MCG PO SCH (06:39)
[2022-11-05 08:23] LABS: HEMATOCRIT 22.9 % (32.4-45.2); HEMOGLOBIN 7.1 GM/dL (10.7-15.3); MCH 25.6 pg (25.7-33.7); MEAN CELL VOLUME 82.6 fl (80-96); PLATELET COUNT 274 10^3/uL (134-434); RBC 2.77 M/mm3 (3.60-5.2); RDW 18.8 % (11.6-15.6); WHITE BLOOD COUNT 9.4 K/mm3 (4.0-10.0)
[2022-11-05 08:29] LABS: INR 2.44 (0.83-1.09); PROTHROMBIN TIME (PATIENT) 28.3 SEC (9.7-13.0)
[2022-11-05 08:50] LABS: BLOOD UREA NITROGEN 64.6 mg/dL (7-18)
[2022-11-05 08:53] LABS: CREATININE 4.1 mg/dL (0.55-1.3)
[2022-11-05 08:55] LABS: BILIRUBIN,TOTAL 0.6 mg/dL (0.2-1)
[2022-11-05 08:56] LABS: TOT PROT 6.2 g/dl (6.4-8.2)
[2022-11-05] MEDS: WARFARIN NA 5 MG, WARFARIN NA 2 MG PO SCH ×2 (09:48→17:12)
[2022-11-05] MEDS: ANASTROZOLE 1 MG TABLET PO SCH (09:49)
[2022-11-05] MEDS: LIDOCAINE 5% TOPICAL PATCH TP SCH (09:49)
[2022-11-05] MEDS: QUEtiapine FUMARATE 200 MG TABLET PO SCH ×2 (09:50→21:12)
[2022-11-05 10:25] LABS: ANISOCYTOSIS 2+; MACROCYTOSIS 1+
[2022-11-05] MEDS: SODIUM CHLORIDE 1,000 ML IV SCH (12:26)
[2022-11-05] MEDS: busPIRone HCL 5 MG TABLET PO PRN (12:34)
[2022-11-05] MEDS ORDERED: IRON SUCROSE INJECTION 200 MG in SODIUM CHLORIDE 90 ML IVPB ONE (14:00)
[2022-11-05 17:52] LABS: EPI CELLS 27 /uL (0-25.1); HYALINE CASTS 0 /uL (0-3.1); URINE APPEARANCE TURBID; URINE BACTERIA 1519 /uL (0-1359); URINE BILIRUBIN NEGATIVE (NEGATIVE); URINE COLOR YELLOW; URINE GLUCOSE (UA) NEGATIVE (NEGATIVE); URINE KETONE NEGATIVE (NEGATIVE); URINE LEUK ESTERASE 3+ (NEGATIVE); URINE NITRITE NEGATIVE (NEGATIVE); URINE PROTEIN 1+ (NEGATIVE); URINE RBC 40 /uL (0-23.9); URINE UROBILINOGEN 0.2 mg/dL (0.2-1.0); URINE WBC 1601 /uL (0-25.8)
[2022-11-05 19:46] LABS: YEAST NONE SEEN (NEGATIVE)
[2022-11-05] MEDS: ROSUVASTATIN CA 10 MG TABLET PO SCH (21:14)
[2022-11-05] MEDS: LIDOCAINE PATCH REMOVAL MC SCH (21:20)
[2022-11-06] MEDS: PIPERACILLIN/TAZOB 2.25 GM 2.25 GM in DEXTROSE 5%-WATER - 50 ML IVPB SCH ×2 (03:00→09:41)
[2022-11-06] MEDS: INSULIN SLIDING SCALE (NOVOLOG) 1 VIAL SQ SCH ×4 (06:09→22:20)
[2022-11-06] MEDS: GABAPENTIN 100 MG CAPSULE PO SCH ×3 (06:09→22:14)
[2022-11-06] MEDS: LEVOTHYROXINE 200 MCG, LEVOTHYROXINE 25 MCG PO SCH (06:12)
[2022-11-06 08:00] LABS: INR 2.39 (0.83-1.09); PROTHROMBIN TIME (PATIENT) 27.7 SEC (9.7-13.0)
[2022-11-06 08:15] LABS: HEMATOCRIT 23.2 % (32.4-45.2); HEMOGLOBIN 7.3 GM/dL (10.7-15.3); MCH 26.4 pg (25.7-33.7); MCHC 31.6 g/dl (32.0-36.0); MEAN CELL VOLUME 83.5 fl (80-96); MEAN PLT VOLUME 7.9 fl (7.5-11.1); PLATELET COUNT 334 10^3/uL (134-434); RBC 2.78 M/mm3 (3.60-5.2); RDW 19.2 % (11.6-15.6); WHITE BLOOD COUNT 11.9 K/mm3 (4.0-10.0)
[2022-11-06 08:15] LABS: BLOOD UREA NITROGEN 67.2 mg/dL (7-18); CALCIUM 8.1 mg/dL (8.5-10.1)
[2022-11-06 08:19] LABS: CREATININE 4.2 mg/dL (0.55-1.3)
[2022-11-06 08:20] LABS: BILIRUBIN,TOTAL 0.3 mg/dL (0.2-1); TOT PROT 6.6 g/dl (6.4-8.2)
[2022-11-06] MEDS: ANASTROZOLE 1 MG TABLET PO SCH (09:38)
[2022-11-06] MEDS: LIDOCAINE 5% TOPICAL PATCH TP SCH (09:40)
[2022-11-06] MEDS: QUEtiapine FUMARATE 200 MG TABLET PO SCH ×2 (09:40→23:45)
[2022-11-06 10:14] LABS: ANISOCYTOSIS 2+; MACROCYTOSIS 0
[2022-11-06] MEDS: ERTAPENEM SODIUM 0.5 GM in SODIUM CHLORIDE 50 ML IVPB SCH (12:18)
[2022-11-06] MEDS: SODIUM CHLORIDE 1,000 ML IV SCH (18:25)
[2022-11-06] MEDS: WARFARIN NA 5 MG, WARFARIN NA 2 MG PO SCH (18:26)
[2022-11-06] MEDS: ROSUVASTATIN CA 10 MG TABLET PO SCH (22:14)
[2022-11-06] MEDS: LIDOCAINE PATCH REMOVAL MC SCH (22:25)
[2022-11-06] MEDS: INSULIN (LEVEMIR) 100 UNITS/ML UNITS SQ SCH (22:25)
[2022-11-07] MEDS: GABAPENTIN 100 MG CAPSULE PO SCH ×3 (05:30→21:30)
[2022-11-07] MEDS: INSULIN SLIDING SCALE (NOVOLOG) 1 VIAL SQ SCH ×4 (06:48→21:30)
[2022-11-07] MEDS: LEVOTHYROXINE 200 MCG, LEVOTHYROXINE 25 MCG PO SCH (06:48)
[2022-11-07] MEDS: SODIUM CHLORIDE 1,000 ML IV SCH ×2 (07:34→13:53)
[2022-11-07 08:09] LABS: HEMATOCRIT 24.1 % (32.4-45.2); HEMOGLOBIN 7.4 GM/dL (10.7-15.3); MCH 25.6 pg (25.7-33.7); MCHC 30.7 g/dl (32.0-36.0); MEAN CELL VOLUME 83.4 fl (80-96); MEAN PLT VOLUME 7.7 fl (7.5-11.1); PLATELET COUNT 316 10^3/uL (134-434); RBC 2.89 M/mm3 (3.60-5.2); RDW 19.4 % (11.6-15.6); WHITE BLOOD COUNT 10.7 K/mm3 (4.0-10.0)
[2022-11-07 08:17] LABS: INR 2.86 (0.83-1.09); PROTHROMBIN TIME (PATIENT) 33.2 SEC (9.7-13.0)
[2022-11-07 08:32] LABS: BLOOD UREA NITROGEN 66.8 mg/dL (7-18); CALCIUM 8.3 mg/dL (8.5-10.1)
[2022-11-07 08:35] LABS: CREATININE 4.1 mg/dL (0.55-1.3)
[2022-11-07 08:37] LABS: BILIRUBIN,TOTAL 0.3 mg/dL (0.2-1); TOT PROT 6.3 g/dl (6.4-8.2)
[2022-11-07 08:49] LABS: ANISOCYTOSIS 1+; MACROCYTOSIS 0
[2022-11-07] MEDS: LIDOCAINE 5% TOPICAL PATCH TP SCH (10:48)
[2022-11-07] MEDS: ANASTROZOLE 1 MG TABLET PO SCH (10:48)
[2022-11-07] MEDS: QUEtiapine FUMARATE 200 MG TABLET PO SCH ×2 (10:49→21:32)
[2022-11-07] MEDS: PANTOPRAZOLE 40 MG TABLET PO SCH (10:50)
[2022-11-07] MEDS: INSULIN (LEVEMIR) 100 UNITS/ML UNITS SQ SCH ×2 (10:50→21:30)
[2022-11-07] MEDS: ERTAPENEM SODIUM 0.5 GM in SODIUM CHLORIDE 50 ML IVPB SCH (12:20)
[2022-11-07] MEDS: WARFARIN NA 5 MG, WARFARIN NA 2 MG PO SCH (17:07)
[2022-11-07] MEDS: LIDOCAINE PATCH REMOVAL MC SCH (21:30)
[2022-11-07] MEDS: ROSUVASTATIN CA 10 MG TABLET PO SCH (21:30)
[2022-11-08] MEDS: GABAPENTIN 100 MG CAPSULE PO SCH ×3 (05:37→21:40)
[2022-11-08] MEDS: INSULIN SLIDING SCALE (NOVOLOG) 1 VIAL SQ SCH ×4 (06:37→21:43)
[2022-11-08] MEDS: LEVOTHYROXINE 200 MCG, LEVOTHYROXINE 25 MCG PO SCH (06:43)
[2022-11-08 08:21] LABS: HEMATOCRIT 25.2 % (32.4-45.2); HEMOGLOBIN 8.2 GM/dL (10.7-15.3); INR 2.62 (0.83-1.09); MCHC 32.5 g/dl (32.0-36.0); MEAN CELL VOLUME 83.2 fl (80-96); MEAN PLT VOLUME 7.4 fl (7.5-11.1); PLATELET COUNT 369 10^3/uL (134-434); PROTHROMBIN TIME (PATIENT) 30.4 SEC (9.7-13.0); RBC 3.03 M/mm3 (3.60-5.2); RDW 18.3 % (11.6-15.6)
[2022-11-08 08:24] LABS: CALCIUM 8.5 mg/dL (8.5-10.1)
[2022-11-08 08:25] LABS: BLOOD UREA NITROGEN 61.5 mg/dL (7-18)
[2022-11-08 08:27] LABS: CREATININE 3.7 mg/dL (0.55-1.3)
[2022-11-08 08:29] LABS: BILIRUBIN,TOTAL 0.3 mg/dL (0.2-1); TOT PROT 6.4 g/dl (6.4-8.2)
[2022-11-08] MEDS: ERTAPENEM SODIUM 0.5 GM in SODIUM CHLORIDE 50 ML IVPB SCH (10:26)
[2022-11-08] MEDS: INSULIN (LEVEMIR) 100 UNITS/ML UNITS SQ SCH ×2 (10:27→21:44)
[2022-11-08] MEDS: PANTOPRAZOLE 40 MG TABLET PO SCH (10:28)
[2022-11-08] MEDS: LIDOCAINE 5% TOPICAL PATCH TP SCH (10:28)
[2022-11-08 10:44] LABS: ANISOCYTOSIS 0; HELMET CELLS 0; HOWELL-JOLLY BODIES 0; MACROCYTOSIS 0; OVALOCYTE 0; ROULEAU 0; SICKELED CELLS 0; TARGET CELLS 0; TEAR DROP CELLS 0; TOXIC GRANULATION 0
[2022-11-08] MEDS: QUEtiapine FUMARATE 200 MG TABLET PO SCH ×2 (12:17→21:39)
[2022-11-08] MEDS: WARFARIN NA 5 MG, WARFARIN NA 2 MG PO SCH (17:46)
[2022-11-08] MEDS: ANASTROZOLE 1 MG TABLET PO SCH (18:06)
[2022-11-08] MEDS: ROSUVASTATIN CA 10 MG TABLET PO SCH (21:40)
[2022-11-08] MEDS: LIDOCAINE PATCH REMOVAL MC SCH (21:43)
[2022-11-09] MEDS: INSULIN SLIDING SCALE (NOVOLOG) 1 VIAL SQ SCH ×4 (06:57→22:10)
[2022-11-09] MEDS: LEVOTHYROXINE 200 MCG, LEVOTHYROXINE 25 MCG PO SCH (06:57)
[2022-11-09] MEDS: GABAPENTIN 100 MG CAPSULE PO SCH ×3 (06:58→21:44)
[2022-11-09 08:20] LABS: INR 2.69 (0.83-1.09); PROTHROMBIN TIME (PATIENT) 31.2 SEC (9.7-13.0)
[2022-11-09] MEDS: ANASTROZOLE 1 MG TABLET PO SCH (10:43)
[2022-11-09] MEDS: PANTOPRAZOLE 40 MG TABLET PO SCH (10:43)
[2022-11-09] MEDS: QUEtiapine FUMARATE 200 MG TABLET PO SCH ×2 (10:43→21:56)
[2022-11-09] MEDS: ERTAPENEM SODIUM 0.5 GM in SODIUM CHLORIDE 50 ML IVPB SCH (10:43)
[2022-11-09] MEDS: LIDOCAINE 5% TOPICAL PATCH TP SCH (10:44)
[2022-11-09] MEDS: INSULIN (LEVEMIR) 100 UNITS/ML UNITS SQ SCH ×2 (10:44→22:11)
[2022-11-09] MEDS: ROSUVASTATIN CA 10 MG TABLET PO SCH (21:45)
[2022-11-09] MEDS: LIDOCAINE PATCH REMOVAL MC SCH (21:46)
[2022-11-09] MEDS: busPIRone HCL 5 MG TABLET PO PRN (21:55)
[2022-11-09] MEDS: CARVEDILOL 3.125 MG TABLET (FP) PO SCH (22:00)
[2022-11-10] MEDS: GABAPENTIN 100 MG CAPSULE PO SCH ×3 (04:51→21:33)
[2022-11-10] MEDS: INSULIN SLIDING SCALE (NOVOLOG) 1 VIAL SQ SCH ×4 (06:16→21:33)
[2022-11-10] MEDS: LEVOTHYROXINE 200 MCG, LEVOTHYROXINE 25 MCG PO SCH (07:02)
[2022-11-10 07:30] LABS: INR 2.6 (0.83-1.09); PROTHROMBIN TIME (PATIENT) 30.2 SEC (9.7-13.0)
[2022-11-10] MEDS: CARVEDILOL 3.125 MG TABLET (FP) PO SCH ×2 (10:16→21:33)
[2022-11-10] MEDS: ANASTROZOLE 1 MG TABLET PO SCH (10:16)
[2022-11-10] MEDS: PANTOPRAZOLE 40 MG TABLET PO SCH (10:16)
[2022-11-10] MEDS: ERTAPENEM SODIUM 0.5 GM in SODIUM CHLORIDE 50 ML IVPB SCH (10:16)
[2022-11-10] MEDS: LIDOCAINE 5% TOPICAL PATCH TP SCH (10:17)
[2022-11-10] MEDS: QUEtiapine FUMARATE 200 MG TABLET PO SCH ×2 (10:18→21:33)
[2022-11-10] MEDS: INSULIN (LEVEMIR) 100 UNITS/ML UNITS SQ SCH ×2 (11:35→21:33)
[2022-11-10 12:44] LABS: HEMATOCRIT 28.2 % (32.4-45.2); HEMOGLOBIN 8.8 GM/dL (10.7-15.3); MCH 26.4 pg (25.7-33.7); MCHC 31.2 g/dl (32.0-36.0); MEAN CELL VOLUME 84.6 fl (80-96); MEAN PLT VOLUME 7.2 fl (7.5-11.1); PLATELET COUNT 392 10^3/uL (134-434); RBC 3.33 M/mm3 (3.60-5.2); RDW 18.8 % (11.6-15.6); WHITE BLOOD COUNT 10.8 K/mm3 (4.0-10.0)
[2022-11-10] MEDS ORDERED: IRON SUCROSE INJECTION 100 MG in SODIUM CHLORIDE 95 ML IVPB ONE (16:00)
[2022-11-10] MEDS ORDERED: WARFARIN NA 7.5 MG TABLET PO SCH (18:00)
[2022-11-10] MEDS: ROSUVASTATIN CA 10 MG TABLET PO SCH (21:33)
[2022-11-10] MEDS: LIDOCAINE PATCH REMOVAL MC SCH (22:38)
[2022-11-11] MEDS: GABAPENTIN 100 MG CAPSULE PO SCH ×3 (05:24→21:42)
[2022-11-11] MEDS: LEVOTHYROXINE 200 MCG, LEVOTHYROXINE 25 MCG PO SCH (06:46)
[2022-11-11] MEDS: INSULIN SLIDING SCALE (NOVOLOG) 1 VIAL SQ SCH ×4 (06:46→21:43)
[2022-11-11 08:21] LABS: BLOOD UREA NITROGEN 54.9 mg/dL (7-18); CALCIUM 8.9 mg/dL (8.5-10.1); CREATININE 3.1 mg/dL (0.55-1.3)
[2022-11-11 08:25] LABS: BILIRUBIN,TOTAL 0.4 mg/dL (0.2-1); TOT PROT 6.6 g/dl (6.4-8.2)
[2022-11-11] MEDS: FOLIC ACID 1 MG TABLET (FP) PO SCH (10:23)
[2022-11-11] MEDS: ANASTROZOLE 1 MG TABLET PO SCH (10:23)
[2022-11-11] MEDS: PANTOPRAZOLE 40 MG TABLET PO SCH (10:23)
[2022-11-11] MEDS: CARVEDILOL 3.125 MG TABLET (FP) PO SCH ×2 (10:23→21:42)
[2022-11-11] MEDS: LIDOCAINE 5% TOPICAL PATCH TP SCH (10:24)
[2022-11-11] MEDS: QUEtiapine FUMARATE 200 MG TABLET PO SCH ×2 (10:25→21:55)
[2022-11-11] MEDS: INSULIN (LEVEMIR) 100 UNITS/ML UNITS SQ SCH ×2 (10:27→21:43)
[2022-11-11] MEDS: ERTAPENEM SODIUM 0.5 GM in SODIUM CHLORIDE 50 ML IVPB SCH (10:28)
[2022-11-11] MEDS ORDERED: SODIUM ZIRCONIUM CYCLOSILICATE (LOKELMA) 5 GM PACKET PO SCH (13:15)
[2022-11-11] MEDS: POLYETHYLENE GLYCOL (HEALTHYLAX) 3350 17 GM PACKET PO SCH ×2 (14:13→21:42)
[2022-11-11] MEDS ORDERED: LEVALBUTEROL HCL 0.31 MG/3 ML VIAL.NEB IH PRN (15:23)
[2022-11-11 17:14] LABS: HEMATOCRIT 29.6 % (32.4-45.2); HEMOGLOBIN 9.3 GM/dL (10.7-15.3); MCH 26.5 pg (25.7-33.7); MCHC 31.3 g/dl (32.0-36.0); MEAN CELL VOLUME 84.8 fl (80-96); MEAN PLT VOLUME 7.6 fl (7.5-11.1); PLATELET COUNT 373 10^3/uL (134-434); RBC 3.49 M/mm3 (3.60-5.2); RDW 18.9 % (11.6-15.6); WHITE BLOOD COUNT 10.3 K/mm3 (4.0-10.0)
[2022-11-11 17:24] LABS: INR 2.03 (0.83-1.09); PROTHROMBIN TIME (PATIENT) 23.5 SEC (9.7-13.0)
[2022-11-11] MEDS: FLUTICASONE/UMECLIDIN/VILANTER(100-62.5-25 TRELEGY ELLIPTA) INAHLER IH SCH (18:08)
[2022-11-11] MEDS: ROSUVASTATIN CA 10 MG TABLET PO SCH (21:42)
[2022-11-11] MEDS: LIDOCAINE PATCH REMOVAL MC SCH (21:51)
[2022-11-12] MEDS: GABAPENTIN 100 MG CAPSULE PO SCH ×3 (06:12→21:25)
[2022-11-12] MEDS: INSULIN SLIDING SCALE (NOVOLOG) 1 VIAL SQ SCH ×4 (06:12→21:52)
[2022-11-12] MEDS: POLYETHYLENE GLYCOL (HEALTHYLAX) 3350 17 GM PACKET PO SCH ×3 (06:12→21:56)
[2022-11-12] MEDS: LEVOTHYROXINE 200 MCG, LEVOTHYROXINE 25 MCG PO SCH (06:12)
[2022-11-12 08:41] LABS: INR 2.15 (0.83-1.09); PROTHROMBIN TIME (PATIENT) 24.9 SEC (9.7-13.0)
[2022-11-12 09:03] LABS: CALCIUM 8.9 mg/dL (8.5-10.1)
[2022-11-12 09:04] LABS: ALBUMIN 2.1 g/dl (3.4-5.0); BLOOD UREA NITROGEN 51.9 mg/dL (7-18)
[2022-11-12 09:09] LABS: BILIRUBIN,TOTAL 0.2 mg/dL (0.2-1); TOT PROT 6.6 g/dl (6.4-8.2)
[2022-11-12] MEDS: LIDOCAINE 5% TOPICAL PATCH TP SCH (09:35)
[2022-11-12] MEDS: ERTAPENEM SODIUM 0.5 GM in SODIUM CHLORIDE 50 ML IVPB SCH (09:35)
[2022-11-12] MEDS: QUEtiapine FUMARATE 200 MG TABLET PO SCH ×2 (09:36→21:48)
[2022-11-12] MEDS: ANASTROZOLE 1 MG TABLET PO SCH (09:37)
[2022-11-12] MEDS: FOLIC ACID 1 MG TABLET (FP) PO SCH (09:42)
[2022-11-12] MEDS: INSULIN (LEVEMIR) 100 UNITS/ML UNITS SQ SCH ×2 (09:42→21:54)
[2022-11-12] MEDS: PANTOPRAZOLE 40 MG TABLET PO SCH (09:42)
[2022-11-12] MEDS: CARVEDILOL 3.125 MG TABLET (FP) PO SCH ×2 (09:42→21:25)
[2022-11-12] MEDS: FLUTICASONE/UMECLIDIN/VILANTER(100-62.5-25 TRELEGY ELLIPTA) INAHLER IH SCH (09:43)
[2022-11-12] MEDS ORDERED: FUROSEMIDE 40 MG TABLET (FP) PO ONE (12:00)
[2022-11-12] MEDS ORDERED: PHYTONADIONE 10 MG/1 ML AMP IVPB ONE (12:16)
[2022-11-12] MEDS: SODIUM ZIRCONIUM CYCLOSILICATE (LOKELMA) 5 GM PACKET PO SCH (12:18)
[2022-11-12] MEDS: ROSUVASTATIN CA 10 MG TABLET PO SCH (21:25)
[2022-11-12] MEDS: LIDOCAINE PATCH REMOVAL MC SCH (21:58)
[2022-11-13] MEDS: POLYETHYLENE GLYCOL (HEALTHYLAX) 3350 17 GM PACKET PO SCH ×3 (06:12→23:45)
[2022-11-13] MEDS: GABAPENTIN 100 MG CAPSULE PO SCH ×3 (06:12→23:43)
[2022-11-13] MEDS: INSULIN SLIDING SCALE (NOVOLOG) 1 VIAL SQ SCH ×4 (06:13→23:47)
[2022-11-13] MEDS: LEVOTHYROXINE 200 MCG, LEVOTHYROXINE 25 MCG PO SCH (06:15)
[2022-11-13 08:34] LABS: INR 1.28 (0.83-1.09); PROTHROMBIN TIME (PATIENT) 14.7 SEC (9.7-13.0)
[2022-11-13 08:37] LABS: HEMATOCRIT 27.5 % (32.4-45.2); HEMOGLOBIN 8.7 GM/dL (10.7-15.3); MCH 26.6 pg (25.7-33.7); MCHC 31.5 g/dl (32.0-36.0); MEAN CELL VOLUME 84.4 fl (80-96); MEAN PLT VOLUME 7.9 fl (7.5-11.1); PLATELET COUNT 338 10^3/uL (134-434); RBC 3.26 M/mm3 (3.60-5.2); RDW 18.5 % (11.6-15.6); WHITE BLOOD COUNT 10.5 K/mm3 (4.0-10.0)
[2022-11-13 08:52] LABS: BLOOD UREA NITROGEN 53.9 mg/dL (7-18)
[2022-11-13 09:16] LABS: ANISOCYTOSIS 0; HELMET CELLS 0; HOWELL-JOLLY BODIES 0; MACROCYTOSIS 0; OVALOCYTE 0; ROULEAU 0; SICKELED CELLS 0; TARGET CELLS 0; TEAR DROP CELLS 0; TOXIC GRANULATION 0
[2022-11-13] MEDS: LIDOCAINE 5% TOPICAL PATCH TP SCH (11:04)
[2022-11-13] MEDS: SODIUM ZIRCONIUM CYCLOSILICATE (LOKELMA) 5 GM PACKET PO SCH (11:06)
[2022-11-13] MEDS: QUEtiapine FUMARATE 200 MG TABLET PO SCH ×2 (11:06→23:48)
[2022-11-13] MEDS: ANASTROZOLE 1 MG TABLET PO SCH (11:06)
[2022-11-13] MEDS: PANTOPRAZOLE 40 MG TABLET PO SCH (11:06)
[2022-11-13] MEDS: CARVEDILOL 3.125 MG TABLET (FP) PO SCH ×2 (11:06→23:45)
[2022-11-13] MEDS: FOLIC ACID 1 MG TABLET (FP) PO SCH (11:07)
[2022-11-13] MEDS: FLUTICASONE/UMECLIDIN/VILANTER(100-62.5-25 TRELEGY ELLIPTA) INAHLER IH SCH (11:08)
[2022-11-13] MEDS: ERTAPENEM SODIUM 0.5 GM in SODIUM CHLORIDE 50 ML IVPB SCH (11:08)
[2022-11-13] MEDS: INSULIN (LEVEMIR) 100 UNITS/ML UNITS SQ SCH ×2 (11:21→23:46)
[2022-11-13] MEDS ORDERED: HEPARIN NA (PORCINE) 5,000 UNITS/ML 1ML VIAL IVPUSH PRN (11:24)
[2022-11-13] MEDS ORDERED: PEG 3350/NA SULF BICARB CL/KCL 4000 ML SOLN.RECON PO ONE (13:00)
[2022-11-13] MEDS: HEPARIN SOD,PORK IN 0.45% NACL 25,000 UNITS/500 ML INFUS.BAG IVPB SCH (15:41)
[2022-11-13] MEDS ORDERED: BISACODYL 5 MG TABLET.DR (FP) PO ONE (20:00)
[2022-11-13] MEDS: ROSUVASTATIN CA 10 MG TABLET PO SCH (23:45)
[2022-11-13] MEDS: LIDOCAINE PATCH REMOVAL MC SCH (23:47)
[2022-11-14 02:49] LABS: INR 1.43 (0.83-1.09)
[2022-11-14 03:11] LABS: ACTIVATED PTT > 400.0 SECONDS (25.2-36.5)
[2022-11-14] MEDS: GABAPENTIN 100 MG CAPSULE PO SCH ×3 (05:34→23:04)
[2022-11-14] MEDS: HEPARIN SOD,PORK IN 0.45% NACL 25,000 UNITS/500 ML INFUS.BAG IVPB SCH ×3 (05:37→17:42)
[2022-11-14] MEDS: POLYETHYLENE GLYCOL (HEALTHYLAX) 3350 17 GM PACKET PO SCH ×3 (06:34→23:06)
[2022-11-14] MEDS: INSULIN SLIDING SCALE (NOVOLOG) 1 VIAL SQ SCH ×4 (06:34→23:07)
[2022-11-14] MEDS: LEVOTHYROXINE 200 MCG, LEVOTHYROXINE 25 MCG PO SCH (06:34)
[2022-11-14] MEDS ORDERED: busPIRone HCL 5 MG TABLET PO PRN (07:41)
[2022-11-14 10:09] LABS: HEMATOCRIT 29.9 % (32.4-45.2); HEMOGLOBIN 9.4 GM/dL (10.7-15.3); INR 1.21 (0.83-1.09); MCH 26.4 pg (25.7-33.7); MCHC 31.3 g/dl (32.0-36.0); MEAN CELL VOLUME 84.4 fl (80-96); MEAN PLT VOLUME 7.4 fl (7.5-11.1); PLATELET COUNT 337 10^3/uL (134-434); RBC 3.54 M/mm3 (3.60-5.2); RDW 18.7 % (11.6-15.6); WHITE BLOOD COUNT 9.9 K/mm3 (4.0-10.0)
[2022-11-14] MEDS: ANASTROZOLE 1 MG TABLET PO SCH (10:14)
[2022-11-14] MEDS: PANTOPRAZOLE 40 MG TABLET PO SCH (10:14)
[2022-11-14] MEDS: FOLIC ACID 1 MG TABLET (FP) PO SCH (10:14)
[2022-11-14] MEDS: CARVEDILOL 3.125 MG TABLET (FP) PO SCH ×2 (10:14→23:04)
[2022-11-14] MEDS: SODIUM ZIRCONIUM CYCLOSILICATE (LOKELMA) 5 GM PACKET PO SCH (10:15)
[2022-11-14 10:28] LABS: BLOOD UREA NITROGEN 47.2 mg/dL (7-18); CALCIUM 9.2 mg/dL (8.5-10.1)
[2022-11-14 10:30] LABS: CREATININE 2.8 mg/dL (0.55-1.3)
[2022-11-14] MEDS: INSULIN (LEVEMIR) 100 UNITS/ML UNITS SQ SCH ×2 (10:39→23:06)
[2022-11-14] MEDS: LIDOCAINE 5% TOPICAL PATCH TP SCH (10:39)
[2022-11-14] MEDS: FLUTICASONE/UMECLIDIN/VILANTER(100-62.5-25 TRELEGY ELLIPTA) INAHLER IH SCH (10:40)
[2022-11-14 10:52] LABS: ANISOCYTOSIS 0; MACROCYTOSIS 0
[2022-11-14] MEDS: QUEtiapine FUMARATE 200 MG TABLET PO SCH ×2 (10:52→23:05)
[2022-11-14] MEDS ORDERED: DEXMEDETOMIDINE HCL 200 MCG/2 ML IVPB ONE (12:22)
[2022-11-14] MEDS ORDERED: KETAMINE HCL 500 MG/10 ML VIAL ONE (12:23)
[2022-11-14] MEDS: LIDOCAINE PATCH REMOVAL MC SCH (22:50)
[2022-11-14] MEDS: ROSUVASTATIN CA 10 MG TABLET PO SCH (23:04)
[2022-11-15] MEDS: HEPARIN NA (PORCINE) 5,000 UNITS/ML 1ML VIAL IVPUSH PRN ×3 (00:08→22:09)
[2022-11-15] MEDS ORDERED: LEVOTHYROXINE 200 MCG, LEVOTHYROXINE 25 MCG PO SCH (07:00)
[2022-11-15 07:27] LABS: INR 1.15 (0.83-1.09); PROTHROMBIN TIME (PATIENT) 13.3 SEC (9.7-13.0)
[2022-11-15] MEDS: GABAPENTIN 100 MG CAPSULE PO SCH ×3 (07:56→23:02)
[2022-11-15] MEDS: INSULIN (LEVEMIR) 100 UNITS/ML UNITS SQ SCH ×2 (07:56→23:04)
[2022-11-15] MEDS: INSULIN SLIDING SCALE (NOVOLOG) 1 VIAL SQ SCH ×4 (07:58→23:05)
[2022-11-15] MEDS: LEVOTHYROXINE 200 MCG, LEVOTHYROXINE 25 MCG PO SCH (07:59)
[2022-11-15] MEDS: POLYETHYLENE GLYCOL (HEALTHYLAX) 3350 17 GM PACKET PO SCH ×3 (08:06→23:03)
[2022-11-15 09:26] LABS: HEMATOCRIT 27.1 % (32.4-45.2); HEMOGLOBIN 8.7 GM/dL (10.7-15.3); MCH 26.8 pg (25.7-33.7); MCHC 32.1 g/dl (32.0-36.0); MEAN CELL VOLUME 83.4 fl (80-96); MEAN PLT VOLUME 8.2 fl (7.5-11.1); PLATELET COUNT 303 10^3/uL (134-434); RBC 3.25 M/mm3 (3.60-5.2); RDW 18.2 % (11.6-15.6); WHITE BLOOD COUNT 9.4 K/mm3 (4.0-10.0)
[2022-11-15] MEDS: SODIUM ZIRCONIUM CYCLOSILICATE (LOKELMA) 5 GM PACKET PO SCH (09:56)
[2022-11-15] MEDS: PANTOPRAZOLE 40 MG TABLET PO SCH (09:57)
[2022-11-15] MEDS: ANASTROZOLE 1 MG TABLET PO SCH (09:57)
[2022-11-15] MEDS: FOLIC ACID 1 MG TABLET (FP) PO SCH (09:57)
[2022-11-15] MEDS: CARVEDILOL 3.125 MG TABLET (FP) PO SCH ×2 (09:57→23:03)
[2022-11-15] MEDS: LIDOCAINE 5% TOPICAL PATCH TP SCH (09:58)
[2022-11-15] MEDS: FLUTICASONE/UMECLIDIN/VILANTER(100-62.5-25 TRELEGY ELLIPTA) INAHLER IH SCH (09:58)
[2022-11-15] MEDS: QUEtiapine FUMARATE 200 MG TABLET PO SCH ×2 (11:44→23:05)
[2022-11-15] MEDS: HEPARIN SOD,PORK IN 0.45% NACL 25,000 UNITS/500 ML INFUS.BAG IVPB SCH (18:32)
[2022-11-15] MEDS: ROSUVASTATIN CA 10 MG TABLET PO SCH (23:02)
[2022-11-16] MEDS: LIDOCAINE PATCH REMOVAL MC SCH (00:04)
[2022-11-16 04:50] LABS: HEMATOCRIT 27.4 % (32.4-45.2); HEMOGLOBIN 8.7 GM/dL (10.7-15.3); MCH 26.3 pg (25.7-33.7); MCHC 31.6 g/dl (32.0-36.0); MEAN CELL VOLUME 83.4 fl (80-96); MEAN PLT VOLUME 7.5 fl (7.5-11.1); PLATELET COUNT 288 10^3/uL (134-434); RBC 3.29 M/mm3 (3.60-5.2); RDW 18.9 % (11.6-15.6); WHITE BLOOD COUNT 7.4 K/mm3 (4.0-10.0)
[2022-11-16 05:06] LABS: CALCIUM 9.3 mg/dL (8.5-10.1)
[2022-11-16 05:08] LABS: BLOOD UREA NITROGEN 40.4 mg/dL (7-18)
[2022-11-16 05:10] LABS: CREATININE 2.9 mg/dL (0.55-1.3)
[2022-11-16] MEDS: HEPARIN NA (PORCINE) 5,000 UNITS/ML 1ML VIAL IVPUSH PRN (05:59)
[2022-11-16] MEDS: POLYETHYLENE GLYCOL (HEALTHYLAX) 3350 17 GM PACKET PO SCH ×3 (07:12→22:54)
[2022-11-16] MEDS: GABAPENTIN 100 MG CAPSULE PO SCH ×3 (07:13→22:53)
[2022-11-16] MEDS: LEVOTHYROXINE 200 MCG, LEVOTHYROXINE 25 MCG PO SCH (07:13)
[2022-11-16] MEDS: INSULIN SLIDING SCALE (NOVOLOG) 1 VIAL SQ SCH ×4 (07:14→22:54)
[2022-11-16] MEDS: INSULIN (LEVEMIR) 100 UNITS/ML UNITS SQ SCH ×2 (07:14→22:55)
[2022-11-16 09:01] LABS: ANISOCYTOSIS 0; HELMET CELLS 0; HOWELL-JOLLY BODIES 0; MACROCYTOSIS 0; OVALOCYTE 0; ROULEAU 0; SICKELED CELLS 0; TARGET CELLS 0; TEAR DROP CELLS 0; TOXIC GRANULATION 0
[2022-11-16] MEDS: PANTOPRAZOLE 40 MG TABLET PO SCH (10:34)
[2022-11-16] MEDS: CARVEDILOL 3.125 MG TABLET (FP) PO SCH ×2 (10:34→22:52)
[2022-11-16] MEDS: LIDOCAINE 5% TOPICAL PATCH TP SCH (10:34)
[2022-11-16] MEDS: ANASTROZOLE 1 MG TABLET PO SCH (10:34)
[2022-11-16] MEDS: FOLIC ACID 1 MG TABLET (FP) PO SCH (10:34)
[2022-11-16] MEDS: QUEtiapine FUMARATE 200 MG TABLET PO SCH ×2 (10:35→22:53)
[2022-11-16] MEDS: FLUTICASONE/UMECLIDIN/VILANTER(100-62.5-25 TRELEGY ELLIPTA) INAHLER IH SCH (10:39)
[2022-11-16] MEDS: HEPARIN SOD,PORK IN 0.45% NACL 25,000 UNITS/500 ML INFUS.BAG IVPB SCH (19:00)
[2022-11-16] MEDS: ROSUVASTATIN CA 10 MG TABLET PO SCH (22:52)
[2022-11-17] MEDS: LIDOCAINE PATCH REMOVAL MC SCH ×2 (02:37→22:12)
[2022-11-17] MEDS: LEVOTHYROXINE 200 MCG, LEVOTHYROXINE 25 MCG PO SCH (07:24)
[2022-11-17] MEDS: POLYETHYLENE GLYCOL (HEALTHYLAX) 3350 17 GM PACKET PO SCH ×3 (07:24→22:12)
[2022-11-17] MEDS: INSULIN (LEVEMIR) 100 UNITS/ML UNITS SQ SCH ×2 (07:25→22:49)
[2022-11-17] MEDS: GABAPENTIN 100 MG CAPSULE PO SCH ×3 (07:25→22:12)
[2022-11-17] MEDS: INSULIN SLIDING SCALE (NOVOLOG) 1 VIAL SQ SCH ×4 (07:26→22:24)
[2022-11-17] MEDS: QUEtiapine FUMARATE 200 MG TABLET PO SCH ×2 (09:39→22:16)
[2022-11-17] MEDS: PANTOPRAZOLE 40 MG TABLET PO SCH (09:39)
[2022-11-17] MEDS: FOLIC ACID 1 MG TABLET (FP) PO SCH (09:39)
[2022-11-17] MEDS: LIDOCAINE 5% TOPICAL PATCH TP SCH (09:39)
[2022-11-17] MEDS: ANASTROZOLE 1 MG TABLET PO SCH (09:39)
[2022-11-17] MEDS: CARVEDILOL 3.125 MG TABLET (FP) PO SCH ×2 (09:39→22:11)
[2022-11-17] MEDS: FLUTICASONE/UMECLIDIN/VILANTER(100-62.5-25 TRELEGY ELLIPTA) INAHLER IH SCH (09:41)
[2022-11-17 11:11] LABS: HEMATOCRIT 29.1 % (32.4-45.2); HEMOGLOBIN 9.2 GM/dL (10.7-15.3); MCH 26.5 pg (25.7-33.7); MCHC 31.6 g/dl (32.0-36.0); PLATELET COUNT 282 10^3/uL (134-434); RBC 3.46 M/mm3 (3.60-5.2); RDW 18.2 % (11.6-15.6); WHITE BLOOD COUNT 7.5 K/mm3 (4.0-10.0)
[2022-11-17 11:36] LABS: BLOOD UREA NITROGEN 35.6 mg/dL (7-18); CALCIUM 9.5 mg/dL (8.5-10.1)
[2022-11-17] MEDS ORDERED: BISACODYL 5 MG TABLET.DR (FP) PO ONE (14:08)
[2022-11-17] MEDS ORDERED: PEG 3350/NA SULF BICARB CL/KCL 4000 ML SOLN.RECON PO ONE (17:00)
[2022-11-17] MEDS: HEPARIN SOD,PORK IN 0.45% NACL 25,000 UNITS/500 ML INFUS.BAG IVPB SCH (18:43)
[2022-11-17] MEDS ORDERED: INSULIN (NOVOLOG) ASPART 100 UNITS/ML 10ML VIAL ONE (21:32)
[2022-11-17] MEDS: ROSUVASTATIN CA 10 MG TABLET PO SCH (22:12)
[2022-11-18] MEDS: POLYETHYLENE GLYCOL (HEALTHYLAX) 3350 17 GM PACKET PO SCH ×3 (06:06→21:37)
[2022-11-18] MEDS: GABAPENTIN 100 MG CAPSULE PO SCH ×3 (06:06→21:38)
[2022-11-18] MEDS: LEVOTHYROXINE 200 MCG, LEVOTHYROXINE 25 MCG PO SCH (06:08)
[2022-11-18] MEDS: INSULIN (LEVEMIR) 100 UNITS/ML UNITS SQ SCH ×2 (06:17→21:47)
[2022-11-18] MEDS: INSULIN SLIDING SCALE (NOVOLOG) 1 VIAL SQ SCH ×4 (06:18→21:43)
[2022-11-18] MEDS: FOLIC ACID 1 MG TABLET (FP) PO SCH (09:29)
[2022-11-18] MEDS: CARVEDILOL 3.125 MG TABLET (FP) PO SCH ×2 (09:29→21:37)
[2022-11-18] MEDS: PANTOPRAZOLE 40 MG TABLET PO SCH (09:29)
[2022-11-18] MEDS: QUEtiapine FUMARATE 200 MG TABLET PO SCH ×2 (09:29→21:39)
[2022-11-18] MEDS: LIDOCAINE 5% TOPICAL PATCH TP SCH (09:31)
[2022-11-18] MEDS: ANASTROZOLE 1 MG TABLET PO SCH (09:31)
[2022-11-18 09:57] LABS: EOS % 6.1 % (0-4.5); HEMATOCRIT 29.3 % (32.4-45.2); HEMOGLOBIN 9.4 GM/dL (10.7-15.3); LYMPH % 19.7 % (8-40); MCH 27.2 pg (25.7-33.7); MCHC 32.2 g/dl (32.0-36.0); MEAN CELL VOLUME 84.4 fl (80-96); MEAN PLT VOLUME 7.9 fl (7.5-11.1); MONO % 7.1 % (3.8-10.2); NEUT % 66.1 % (42.8-82.8); PLATELET COUNT 308 10^3/uL (134-434); RBC 3.47 M/mm3 (3.60-5.2); RDW 18.6 % (11.6-15.6); WHITE BLOOD COUNT 7.6 K/mm3 (4.0-10.0)
[2022-11-18 10:23] LABS: CALCIUM 9.7 mg/dL (8.5-10.1)
[2022-11-18 10:24] LABS: BLOOD UREA NITROGEN 29.5 mg/dL (7-18)
[2022-11-18 10:27] LABS: CREATININE 2.8 mg/dL (0.55-1.3)
[2022-11-18] MEDS ORDERED: KETAMINE HCL 500 MG/10 ML VIAL ONE (10:35)
[2022-11-18] MEDS: FLUTICASONE/UMECLIDIN/VILANTER(100-62.5-25 TRELEGY ELLIPTA) INAHLER IH SCH (14:35)
[2022-11-18] MEDS: ROSUVASTATIN CA 10 MG TABLET PO SCH (21:37)
[2022-11-18] MEDS: LIDOCAINE PATCH REMOVAL MC SCH (21:37)
[2022-11-19] MEDS: GABAPENTIN 100 MG CAPSULE PO SCH ×3 (06:09→23:09)
[2022-11-19] MEDS: POLYETHYLENE GLYCOL (HEALTHYLAX) 3350 17 GM PACKET PO SCH ×3 (06:09→23:11)
[2022-11-19] MEDS: INSULIN SLIDING SCALE (NOVOLOG) 1 VIAL SQ SCH ×4 (06:12→23:10)
[2022-11-19] MEDS: INSULIN (LEVEMIR) 100 UNITS/ML UNITS SQ SCH ×2 (06:12→23:10)
[2022-11-19] MEDS ORDERED: LEVOTHYROXINE NA 200 MCG TABLET PO SCH (07:00)
[2022-11-19] MEDS: LEVOTHYROXINE 125 MCG, LEVOTHYROXINE 100 MCG PO SCH (07:53)
[2022-11-19] MEDS: AMINO ACIDS/PROTEIN HYDROLYS 30 ML LIQUID.PKT PO SCH (09:00)
[2022-11-19 09:49] LABS: HEMATOCRIT 30.4 % (32.4-45.2); HEMOGLOBIN 10.6 GM/dL (10.7-15.3); MCH 29.6 pg (25.7-33.7); MCHC 34.8 g/dl (32.0-36.0); MEAN CELL VOLUME 85.1 fl (80-96); RBC 3.57 M/mm3 (3.60-5.2); RDW 18.3 % (11.6-15.6); WHITE BLOOD COUNT 10.3 K/mm3 (4.0-10.0)
[2022-11-19 10:19] LABS: MEAN PLT VOLUME 8.4 fl (7.5-11.1); PLATELET COUNT 253 10^3/uL (134-434)
[2022-11-19] MEDS: FOLIC ACID 1 MG TABLET (FP) PO SCH (10:21)
[2022-11-19] MEDS: MULTIVITAMINS (DAILY MVI) TABLET (FP) PO SCH (10:21)
[2022-11-19] MEDS: CARVEDILOL 3.125 MG TABLET (FP) PO SCH ×2 (10:21→23:09)
[2022-11-19] MEDS: PANTOPRAZOLE 40 MG TABLET PO SCH (10:21)
[2022-11-19] MEDS: QUEtiapine FUMARATE 200 MG TABLET PO SCH ×2 (10:22→23:09)
[2022-11-19] MEDS: LIDOCAINE 5% TOPICAL PATCH TP SCH (10:23)
[2022-11-19] MEDS: ANASTROZOLE 1 MG TABLET PO SCH (10:23)
[2022-11-19] MEDS: FLUTICASONE/UMECLIDIN/VILANTER(100-62.5-25 TRELEGY ELLIPTA) INAHLER IH SCH (11:23)
[2022-11-19] MEDS ORDERED: INSULIN (NOVOLOG) ASPART 100 UNITS/ML 10ML VIAL ONE (18:07)
[2022-11-19] MEDS: ROSUVASTATIN CA 10 MG TABLET PO SCH (23:09)
[2022-11-19] MEDS: LIDOCAINE PATCH REMOVAL MC SCH (23:21)
[2022-11-20] MEDS: LEVOTHYROXINE 125 MCG, LEVOTHYROXINE 100 MCG PO SCH (07:05)
[2022-11-20] MEDS: POLYETHYLENE GLYCOL (HEALTHYLAX) 3350 17 GM PACKET PO SCH ×3 (07:05→22:13)
[2022-11-20] MEDS: GABAPENTIN 100 MG CAPSULE PO SCH ×3 (07:05→22:13)
[2022-11-20] MEDS: INSULIN SLIDING SCALE (NOVOLOG) 1 VIAL SQ SCH ×4 (07:06→22:19)
[2022-11-20] MEDS: INSULIN (LEVEMIR) 100 UNITS/ML UNITS SQ SCH ×2 (07:06→22:20)
[2022-11-20 09:49] LABS: EPI CELLS 16 /uL (0-25.1); HYALINE CASTS 0 /uL (0-3.1); URINE APPEARANCE CLEAR; URINE BACTERIA 3171 /uL (0-1359); URINE BILIRUBIN NEGATIVE (NEGATIVE); URINE COLOR YELLOW; URINE GLUCOSE (UA) NEGATIVE (NEGATIVE); URINE KETONE NEGATIVE (NEGATIVE); URINE LEUK ESTERASE 3+ (NEGATIVE); URINE NITRITE POSITIVE (NEGATIVE); URINE PROTEIN NEGATIVE (NEGATIVE); URINE RBC 5 /uL (0-23.9); URINE UROBILINOGEN 0.2 mg/dL (0.2-1.0); URINE WBC 43 /uL (0-25.8)
[2022-11-20] MEDS: PANTOPRAZOLE 40 MG TABLET PO SCH (09:59)
[2022-11-20] MEDS: AMINO ACIDS/PROTEIN HYDROLYS 30 ML LIQUID.PKT PO SCH (09:59)
[2022-11-20] MEDS: FOLIC ACID 1 MG TABLET (FP) PO SCH (09:59)
[2022-11-20] MEDS: CARVEDILOL 3.125 MG TABLET (FP) PO SCH ×2 (09:59→22:12)
[2022-11-20] MEDS: MULTIVITAMINS (DAILY MVI) TABLET (FP) PO SCH (09:59)
[2022-11-20] MEDS: LIDOCAINE 5% TOPICAL PATCH TP SCH (10:00)
[2022-11-20] MEDS: ANASTROZOLE 1 MG TABLET PO SCH (10:00)
[2022-11-20] MEDS: FLUTICASONE/UMECLIDIN/VILANTER(100-62.5-25 TRELEGY ELLIPTA) INAHLER IH SCH (10:08)
[2022-11-20 10:18] LABS: BLOOD UREA NITROGEN 31.3 mg/dL (7-18)
[2022-11-20 10:19] LABS: CALCIUM 9.6 mg/dL (8.5-10.1)
[2022-11-20 10:23] LABS: CREATININE 3.1 mg/dL (0.55-1.3)
[2022-11-20 10:24] LABS: BILIRUBIN,TOTAL 0.3 mg/dL (0.2-1); TOT PROT 7.2 g/dl (6.4-8.2)
[2022-11-20 10:46] LABS: ALBUMIN 2.5 g/dl (3.4-5.0)
[2022-11-20] MEDS: QUEtiapine FUMARATE 200 MG TABLET PO SCH ×2 (11:43→22:14)
[2022-11-20 16:12] LABS: ATYPICAL pANCA <1:20 titer (Neg:<1:20); C-ANCA <1:20 titer (Neg:<1:20)
[2022-11-20] MEDS: ROSUVASTATIN CA 10 MG TABLET PO SCH (22:12)
[2022-11-20] MEDS: LIDOCAINE PATCH REMOVAL MC SCH (22:13)
[2022-11-21] MEDS: INSULIN (LEVEMIR) 100 UNITS/ML UNITS SQ SCH ×2 (06:55→22:29)
[2022-11-21] MEDS: GABAPENTIN 100 MG CAPSULE PO SCH ×3 (06:55→22:26)
[2022-11-21] MEDS: POLYETHYLENE GLYCOL (HEALTHYLAX) 3350 17 GM PACKET PO SCH ×3 (06:55→22:27)
[2022-11-21] MEDS: INSULIN SLIDING SCALE (NOVOLOG) 1 VIAL SQ SCH ×4 (06:56→22:28)
[2022-11-21] MEDS: LEVOTHYROXINE 125 MCG, LEVOTHYROXINE 100 MCG PO SCH (06:58)
[2022-11-21] MEDS: FOLIC ACID 1 MG TABLET (FP) PO SCH (10:21)
[2022-11-21] MEDS: CARVEDILOL 3.125 MG TABLET (FP) PO SCH ×2 (10:21→22:26)
[2022-11-21] MEDS: AMINO ACIDS/PROTEIN HYDROLYS 30 ML LIQUID.PKT PO SCH (10:21)
[2022-11-21] MEDS: ANASTROZOLE 1 MG TABLET PO SCH (10:21)
[2022-11-21] MEDS: LIDOCAINE 5% TOPICAL PATCH TP SCH (10:22)
[2022-11-21] MEDS: QUEtiapine FUMARATE 200 MG TABLET PO SCH ×2 (10:22→22:29)
[2022-11-21] MEDS: MULTIVITAMINS (DAILY MVI) TABLET (FP) PO SCH (10:25)
[2022-11-21] MEDS: FLUTICASONE/UMECLIDIN/VILANTER(100-62.5-25 TRELEGY ELLIPTA) INAHLER IH SCH (10:26)
[2022-11-21] MEDS: PANTOPRAZOLE 40 MG TABLET PO SCH (10:29)
[2022-11-21] MEDS: HEPARIN SOD,PORK IN 0.45% NACL 25,000 UNITS/500 ML INFUS.BAG IVPB SCH (11:53)
[2022-11-21 17:37] LABS: INR 1.11 (0.83-1.09); PROTHROMBIN TIME (PATIENT) 12.8 SEC (9.7-13.0)
[2022-11-21] MEDS: WARFARIN NA 5 MG TABLET PO SCH (18:06)
[2022-11-21] MEDS: HEPARIN NA (PORCINE) 5,000 UNITS/ML 1ML VIAL IVPUSH PRN (18:57)
[2022-11-21] MEDS: ROSUVASTATIN CA 10 MG TABLET PO SCH (22:27)
[2022-11-21] MEDS: LIDOCAINE PATCH REMOVAL MC SCH (22:34)
[2022-11-22 05:45] LABS: INR 1.04 (0.83-1.09)
[2022-11-22] MEDS: POLYETHYLENE GLYCOL (HEALTHYLAX) 3350 17 GM PACKET PO SCH ×3 (07:36→23:11)
[2022-11-22] MEDS: GABAPENTIN 100 MG CAPSULE PO SCH ×3 (07:37→23:12)
[2022-11-22] MEDS: LEVOTHYROXINE 125 MCG, LEVOTHYROXINE 100 MCG PO SCH (07:37)
[2022-11-22 07:38] LABS: ACTIVATED PTT 29.7 SECONDS (25.2-36.5)
[2022-11-22] MEDS: INSULIN (LEVEMIR) 100 UNITS/ML UNITS SQ SCH ×2 (07:38→23:12)
[2022-11-22] MEDS: INSULIN SLIDING SCALE (NOVOLOG) 1 VIAL SQ SCH ×4 (07:39→23:21)
[2022-11-22] MEDS: AMINO ACIDS/PROTEIN HYDROLYS 30 ML LIQUID.PKT PO SCH (09:54)
[2022-11-22] MEDS: QUEtiapine FUMARATE 200 MG TABLET PO SCH ×2 (09:54→23:11)
[2022-11-22] MEDS: ANASTROZOLE 1 MG TABLET PO SCH (09:54)
[2022-11-22] MEDS: PANTOPRAZOLE 40 MG TABLET PO SCH (09:54)
[2022-11-22] MEDS: CARVEDILOL 3.125 MG TABLET (FP) PO SCH ×2 (09:54→23:12)
[2022-11-22] MEDS: FOLIC ACID 1 MG TABLET (FP) PO SCH (09:54)
[2022-11-22] MEDS: FLUTICASONE/UMECLIDIN/VILANTER(100-62.5-25 TRELEGY ELLIPTA) INAHLER IH SCH (09:54)
[2022-11-22] MEDS: MULTIVITAMINS (DAILY MVI) TABLET (FP) PO SCH (09:54)
[2022-11-22] MEDS: LIDOCAINE 5% TOPICAL PATCH TP SCH (09:54)
[2022-11-22 10:05] LABS: BASO % 1.1 % (0-2.0); HEMATOCRIT 28.6 % (32.4-45.2); LYMPH % 22.1 % (8-40); MCH 26.8 pg (25.7-33.7); MCHC 31.4 g/dl (32.0-36.0); MEAN CELL VOLUME 85.3 fl (80-96); MEAN PLT VOLUME 8.5 fl (7.5-11.1); MONO % 8.7 % (3.8-10.2); NEUT % 60.1 % (42.8-82.8); PLATELET COUNT 247 10^3/uL (134-434); RBC 3.35 M/mm3 (3.60-5.2); RDW 18.4 % (11.6-15.6)
[2022-11-22 11:21] LABS: ALBUMIN 2.6 g/dl (3.4-5.0); BILIRUBIN,TOTAL 0.4 mg/dL (0.2-1); BLOOD UREA NITROGEN 44.5 mg/dL (7-18); CALCIUM 9.2 mg/dL (8.5-10.1); CREATININE 3.4 mg/dL (0.55-1.3); TOT PROT 7.2 g/dl (6.4-8.2)
[2022-11-22] MEDS: HEPARIN SOD,PORK IN 0.45% NACL 25,000 UNITS/500 ML INFUS.BAG IVPB SCH (14:25)
[2022-11-22] MEDS: SODIUM CHLORIDE 0.45% 1,000 ML IV SCH (14:26)
[2022-11-22 16:52] LABS: VENOUS BASE EXCESS 1.9 mmol/L (-2-2); VENOUS O2 SATURATION 88.6 % (70-80); VENOUS PCO2 49.7 mmHg (38-52); VENOUS PH 7.368 (7.310-7.410)
[2022-11-22] MEDS: WARFARIN NA 5 MG TABLET PO SCH (17:54)
[2022-11-22] MEDS: HEPARIN NA (PORCINE) 5,000 UNITS/ML 1ML VIAL IVPUSH PRN (19:58)
[2022-11-22] MEDS: ROSUVASTATIN CA 10 MG TABLET PO SCH (23:11)
[2022-11-22] MEDS: LIDOCAINE PATCH REMOVAL MC SCH (23:12)
[2022-11-23] MEDS: HEPARIN NA (PORCINE) 5,000 UNITS/ML 1ML VIAL IVPUSH PRN ×3 (02:20→18:46)
[2022-11-23] MEDS: HEPARIN SOD,PORK IN 0.45% NACL 25,000 UNITS/500 ML INFUS.BAG IVPB SCH ×2 (02:30→10:29)
[2022-11-23] MEDS: POLYETHYLENE GLYCOL (HEALTHYLAX) 3350 17 GM PACKET PO SCH ×3 (05:14→22:10)
[2022-11-23] MEDS: GABAPENTIN 100 MG CAPSULE PO SCH ×3 (05:14→22:00)
[2022-11-23] MEDS: INSULIN (LEVEMIR) 100 UNITS/ML UNITS SQ SCH ×2 (06:18→22:12)
[2022-11-23] MEDS: LEVOTHYROXINE 125 MCG, LEVOTHYROXINE 100 MCG PO SCH (06:18)
[2022-11-23] MEDS: INSULIN SLIDING SCALE (NOVOLOG) 1 VIAL SQ SCH ×4 (06:18→22:09)
[2022-11-23] MEDS: CARVEDILOL 3.125 MG TABLET (FP) PO SCH ×2 (09:38→22:00)
[2022-11-23] MEDS: QUEtiapine FUMARATE 200 MG TABLET PO SCH ×2 (09:38→22:00)
[2022-11-23] MEDS: ANASTROZOLE 1 MG TABLET PO SCH (09:38)
[2022-11-23] MEDS: PANTOPRAZOLE 40 MG TABLET PO SCH (09:38)
[2022-11-23] MEDS: AMINO ACIDS/PROTEIN HYDROLYS 30 ML LIQUID.PKT PO SCH (09:38)
[2022-11-23] MEDS: LIDOCAINE 5% TOPICAL PATCH TP SCH (09:38)
[2022-11-23] MEDS: FOLIC ACID 1 MG TABLET (FP) PO SCH (09:38)
[2022-11-23] MEDS: MULTIVITAMINS (DAILY MVI) TABLET (FP) PO SCH (09:39)
[2022-11-23] MEDS: FLUTICASONE/UMECLIDIN/VILANTER(100-62.5-25 TRELEGY ELLIPTA) INAHLER IH SCH (09:39)
[2022-11-23] MEDS: SODIUM CHLORIDE 0.45% 1,000 ML IV SCH ×2 (09:39→17:11)
[2022-11-23 10:40] LABS: INR 1.08 (0.83-1.09); PROTHROMBIN TIME (PATIENT) 12.4 SEC (9.7-13.0)
[2022-11-23 10:51] LABS: HEMATOCRIT 28.9 % (32.4-45.2); HEMOGLOBIN 9.2 GM/dL (10.7-15.3); MCH 26.9 pg (25.7-33.7); MCHC 31.7 g/dl (32.0-36.0); MEAN CELL VOLUME 84.8 fl (80-96); MEAN PLT VOLUME 8.5 fl (7.5-11.1); PLATELET COUNT 243 10^3/uL (134-434); RBC 3.41 M/mm3 (3.60-5.2); RDW 18.6 % (11.6-15.6); WHITE BLOOD COUNT 6.4 K/mm3 (4.0-10.0)
[2022-11-23 11:04] LABS: ALBUMIN 2.6 g/dl (3.4-5.0); CALCIUM 9.1 mg/dL (8.5-10.1)
[2022-11-23 11:05] LABS: BLOOD UREA NITROGEN 44.7 mg/dL (7-18)
[2022-11-23 11:09] LABS: CREATININE 3.1 mg/dL (0.55-1.3)
[2022-11-23 11:11] LABS: BILIRUBIN,TOTAL 0.3 mg/dL (0.2-1); TOT PROT 7.3 g/dl (6.4-8.2)
[2022-11-23] MEDS: WARFARIN NA 5 MG TABLET PO SCH (17:23)
[2022-11-23] MEDS ORDERED: WARFARIN NA 5 MG TABLET PO SCH (17:47)
[2022-11-23] MEDS ORDERED: WARFARIN NA 2.5 MG TABLET PO ONE (18:30)
[2022-11-23] MEDS: ROSUVASTATIN CA 10 MG TABLET PO SCH (22:00)
[2022-11-23] MEDS: LIDOCAINE PATCH REMOVAL MC SCH (22:08)
[2022-11-24] MEDS: HEPARIN SOD,PORK IN 0.45% NACL 25,000 UNITS/500 ML INFUS.BAG IVPB SCH ×2 (01:30→09:30)
[2022-11-24] MEDS: LEVOTHYROXINE 125 MCG, LEVOTHYROXINE 100 MCG PO SCH (06:42)
[2022-11-24] MEDS: GABAPENTIN 100 MG CAPSULE PO SCH ×3 (06:44→23:05)
[2022-11-24] MEDS: POLYETHYLENE GLYCOL (HEALTHYLAX) 3350 17 GM PACKET PO SCH ×3 (06:45→23:05)
[2022-11-24] MEDS: INSULIN (LEVEMIR) 100 UNITS/ML UNITS SQ SCH (06:49)
[2022-11-24] MEDS: INSULIN SLIDING SCALE (NOVOLOG) 1 VIAL SQ SCH ×3 (06:50→16:47)
[2022-11-24] MEDS: QUEtiapine FUMARATE 200 MG TABLET PO SCH ×2 (09:36→23:05)
[2022-11-24] MEDS: AMINO ACIDS/PROTEIN HYDROLYS 30 ML LIQUID.PKT PO SCH (09:36)
[2022-11-24] MEDS: PANTOPRAZOLE 40 MG TABLET PO SCH (09:36)
[2022-11-24] MEDS: CARVEDILOL 3.125 MG TABLET (FP) PO SCH ×2 (09:36→23:05)
[2022-11-24] MEDS: FOLIC ACID 1 MG TABLET (FP) PO SCH (09:36)
[2022-11-24] MEDS: ANASTROZOLE 1 MG TABLET PO SCH (09:37)
[2022-11-24] MEDS: LIDOCAINE 5% TOPICAL PATCH TP SCH (09:38)
[2022-11-24] MEDS: MULTIVITAMINS (DAILY MVI) TABLET (FP) PO SCH (09:40)
[2022-11-24] MEDS: FLUTICASONE/UMECLIDIN/VILANTER(100-62.5-25 TRELEGY ELLIPTA) INAHLER IH SCH (09:45)
[2022-11-24 09:47] VITALS: RESP 20
[2022-11-24 11:06] LABS: HEMATOCRIT 28.8 % (32.4-45.2); HEMOGLOBIN 9.1 GM/dL (10.7-15.3); MCH 27.2 pg (25.7-33.7); MCHC 31.7 g/dl (32.0-36.0); MEAN CELL VOLUME 85.7 fl (80-96); MEAN PLT VOLUME 8.7 fl (7.5-11.1); PLATELET COUNT 246 10^3/uL (134-434); RBC 3.36 M/mm3 (3.60-5.2); RDW 18.6 % (11.6-15.6); WHITE BLOOD COUNT 6.3 K/mm3 (4.0-10.0)
[2022-11-24 11:13] LABS: INR 1.18 (0.83-1.09); PROTHROMBIN TIME (PATIENT) 13.6 SEC (9.7-13.0)
[2022-11-24] MEDS: ALBUTEROL SO4 0.083% IH SOL 2.5 MG/3 ML VIAL.NEB. NEB SCH ×2 (14:50→21:30)
[2022-11-24 15:48] VITALS: BMI 42.5
[2022-11-24] MEDS: WARFARIN NA 10 MG TABLET PO SCH (17:24)
[2022-11-24] MEDS ORDERED: WARFARIN NA 7.5 MG TABLET PO SCH (18:00)
[2022-11-24] MEDS ORDERED: WARFARIN NA 5 MG, WARFARIN NA 2.5 MG PO SCH (18:00)
[2022-11-24] MEDS: LIDOCAINE PATCH REMOVAL MC SCH (23:05)
[2022-11-24] MEDS: ROSUVASTATIN CA 10 MG TABLET PO SCH (23:05)
[2022-11-25] MEDS: INSULIN (LEVEMIR) 100 UNITS/ML UNITS SQ SCH ×3 (00:10→22:38)
[2022-11-25] MEDS: INSULIN SLIDING SCALE (NOVOLOG) 1 VIAL SQ SCH ×5 (00:10→22:47)
[2022-11-25] MEDS: HEPARIN SOD,PORK IN 0.45% NACL 25,000 UNITS/500 ML INFUS.BAG IVPB SCH ×2 (05:15→11:28)
[2022-11-25] MEDS: GABAPENTIN 100 MG CAPSULE PO SCH ×3 (05:46→22:36)
[2022-11-25] MEDS: POLYETHYLENE GLYCOL (HEALTHYLAX) 3350 17 GM PACKET PO SCH ×3 (05:46→22:39)
[2022-11-25] MEDS: LEVOTHYROXINE 125 MCG, LEVOTHYROXINE 100 MCG PO SCH (06:36)
[2022-11-25] MEDS ORDERED: INSULIN (LEVEMIR) 100 UNITS/ML UNITS SQ ONE (06:49)
[2022-11-25] MEDS: ALBUTEROL SO4 0.083% IH SOL 2.5 MG/3 ML VIAL.NEB. NEB SCH ×3 (07:50→20:00)
[2022-11-25] MEDS: FOLIC ACID 1 MG TABLET (FP) PO SCH (09:25)
[2022-11-25] MEDS: QUEtiapine FUMARATE 200 MG TABLET PO SCH ×3 (09:25→22:36)
[2022-11-25] MEDS: LIDOCAINE 5% TOPICAL PATCH TP SCH (09:25)
[2022-11-25] MEDS: PANTOPRAZOLE 40 MG TABLET PO SCH (09:25)
[2022-11-25] MEDS: AMINO ACIDS/PROTEIN HYDROLYS 30 ML LIQUID.PKT PO SCH (09:25)
[2022-11-25] MEDS: ANASTROZOLE 1 MG TABLET PO SCH (09:26)
[2022-11-25] MEDS: CARVEDILOL 3.125 MG TABLET (FP) PO SCH ×2 (09:26→22:36)
[2022-11-25] MEDS: MULTIVITAMINS (DAILY MVI) TABLET (FP) PO SCH (09:27)
[2022-11-25] MEDS: FLUTICASONE/UMECLIDIN/VILANTER(100-62.5-25 TRELEGY ELLIPTA) INAHLER IH SCH (09:28)
[2022-11-25 09:35] LABS: HEMATOCRIT 26.5 % (32.4-45.2); HEMOGLOBIN 8.5 GM/dL (10.7-15.3); MCH 27.4 pg (25.7-33.7); MCHC 32.2 g/dl (32.0-36.0); MEAN PLT VOLUME 8.7 fl (7.5-11.1); PLATELET COUNT 219 10^3/uL (134-434); RBC 3.12 M/mm3 (3.60-5.2); RDW 18.4 % (11.6-15.6); WHITE BLOOD COUNT 5.9 K/mm3 (4.0-10.0)
[2022-11-25 09:43] LABS: INR 1.48 (0.83-1.09); PROTHROMBIN TIME (PATIENT) 17.1 SEC (9.7-13.0)
[2022-11-25 09:45] LABS: ACTIVATED PTT 42.7 SECONDS (25.2-36.5)
[2022-11-25 09:59] LABS: CALCIUM 9.3 mg/dL (8.5-10.1)
[2022-11-25 10:00] LABS: ALBUMIN 2.6 g/dl (3.4-5.0); BILIRUBIN,TOTAL 0.3 mg/dL (0.2-1); BLOOD UREA NITROGEN 49.7 mg/dL (7-18); TOT PROT 7.2 g/dl (6.4-8.2)
[2022-11-25 10:02] LABS: CREATININE 3.1 mg/dL (0.55-1.3)
[2022-11-25] MEDS: HEPARIN NA (PORCINE) 5,000 UNITS/ML 1ML VIAL IVPUSH PRN (11:16)
[2022-11-25] MEDS: WARFARIN NA 10 MG TABLET PO SCH (17:56)
[2022-11-25] MEDS: ROSUVASTATIN CA 10 MG TABLET PO SCH (22:36)
[2022-11-25] MEDS: LIDOCAINE PATCH REMOVAL MC SCH (22:46)
[2022-11-26] MEDS: HEPARIN SOD,PORK IN 0.45% NACL 25,000 UNITS/500 ML INFUS.BAG IVPB SCH ×2 (00:29→12:29)
[2022-11-26] MEDS: GABAPENTIN 100 MG CAPSULE PO SCH ×3 (06:36→21:46)
[2022-11-26] MEDS: POLYETHYLENE GLYCOL (HEALTHYLAX) 3350 17 GM PACKET PO SCH ×4 (06:36→21:56)
[2022-11-26] MEDS: LEVOTHYROXINE 125 MCG, LEVOTHYROXINE 100 MCG PO SCH (06:36)
[2022-11-26] MEDS: INSULIN (LEVEMIR) 100 UNITS/ML UNITS SQ SCH ×2 (06:37→21:46)
[2022-11-26] MEDS: INSULIN SLIDING SCALE (NOVOLOG) 1 VIAL SQ SCH ×4 (06:46→21:47)
[2022-11-26] MEDS: ALBUTEROL SO4 0.083% IH SOL 2.5 MG/3 ML VIAL.NEB. NEB SCH ×3 (07:40→20:45)
[2022-11-26 10:23] LABS: HEMATOCRIT 28.5 % (32.4-45.2); HEMOGLOBIN 9.1 GM/dL (10.7-15.3); MCH 27.3 pg (25.7-33.7); MCHC 32.1 g/dl (32.0-36.0); MEAN CELL VOLUME 85.1 fl (80-96); MEAN PLT VOLUME 8.8 fl (7.5-11.1); PLATELET COUNT 241 10^3/uL (134-434); RBC 3.35 M/mm3 (3.60-5.2); RDW 18.8 % (11.6-15.6); WHITE BLOOD COUNT 5.9 K/mm3 (4.0-10.0)
[2022-11-26 10:36] LABS: INR 1.64 (0.83-1.09)
[2022-11-26] MEDS: ANASTROZOLE 1 MG TABLET PO SCH (10:47)
[2022-11-26] MEDS: FLUTICASONE/UMECLIDIN/VILANTER(100-62.5-25 TRELEGY ELLIPTA) INAHLER IH SCH (10:47)
[2022-11-26] MEDS: CARVEDILOL 3.125 MG TABLET (FP) PO SCH ×2 (10:47→21:46)
[2022-11-26] MEDS: PANTOPRAZOLE 40 MG TABLET PO SCH (10:47)
[2022-11-26] MEDS: LIDOCAINE 5% TOPICAL PATCH TP SCH (10:47)
[2022-11-26] MEDS: FOLIC ACID 1 MG TABLET (FP) PO SCH (10:47)
[2022-11-26] MEDS: MULTIVITAMINS (DAILY MVI) TABLET (FP) PO SCH (10:47)
[2022-11-26] MEDS: QUEtiapine FUMARATE 200 MG TABLET PO SCH ×2 (10:47→21:46)
[2022-11-26] MEDS: AMINO ACIDS/PROTEIN HYDROLYS 30 ML LIQUID.PKT PO SCH (10:47)
[2022-11-26] MEDS: WARFARIN NA 10 MG TABLET PO SCH (17:54)
[2022-11-26] MEDS: ROSUVASTATIN CA 10 MG TABLET PO SCH (21:46)
[2022-11-26] MEDS: LIDOCAINE PATCH REMOVAL MC SCH (21:57)
[2022-11-27] MEDS: HEPARIN SOD,PORK IN 0.45% NACL 25,000 UNITS/500 ML INFUS.BAG IVPB SCH ×2 (01:47→11:42)
[2022-11-27] MEDS: POLYETHYLENE GLYCOL (HEALTHYLAX) 3350 17 GM PACKET PO SCH ×4 (06:06→21:34)
[2022-11-27] MEDS: GABAPENTIN 100 MG CAPSULE PO SCH ×4 (06:06→21:33)
[2022-11-27] MEDS: LEVOTHYROXINE 125 MCG, LEVOTHYROXINE 100 MCG PO SCH (07:04)
[2022-11-27] MEDS: INSULIN SLIDING SCALE (NOVOLOG) 1 VIAL SQ SCH ×4 (07:06→21:17)
[2022-11-27] MEDS: ALBUTEROL SO4 0.083% IH SOL 2.5 MG/3 ML VIAL.NEB. NEB SCH ×3 (07:20→19:36)
[2022-11-27] MEDS: INSULIN (LEVEMIR) 100 UNITS/ML UNITS SQ SCH ×2 (08:24→21:15)
[2022-11-27] MEDS: PANTOPRAZOLE 40 MG TABLET PO SCH (09:44)
[2022-11-27] MEDS: CARVEDILOL 3.125 MG TABLET (FP) PO SCH ×2 (09:45→21:33)
[2022-11-27] MEDS: FOLIC ACID 1 MG TABLET (FP) PO SCH (09:45)
[2022-11-27] MEDS: QUEtiapine FUMARATE 200 MG TABLET PO SCH ×2 (09:45→21:33)
[2022-11-27] MEDS: AMINO ACIDS/PROTEIN HYDROLYS 30 ML LIQUID.PKT PO SCH (09:45)
[2022-11-27] MEDS: ANASTROZOLE 1 MG TABLET PO SCH (09:46)
[2022-11-27] MEDS: FLUTICASONE/UMECLIDIN/VILANTER(100-62.5-25 TRELEGY ELLIPTA) INAHLER IH SCH (09:46)
[2022-11-27] MEDS: MULTIVITAMINS (DAILY MVI) TABLET (FP) PO SCH (09:46)
[2022-11-27] MEDS: LIDOCAINE 5% TOPICAL PATCH TP SCH (09:46)
[2022-11-27 11:05] LABS: HEMATOCRIT 28.6 % (32.4-45.2); HEMOGLOBIN 9.2 GM/dL (10.7-15.3); MCH 27.3 pg (25.7-33.7); MCHC 32.1 g/dl (32.0-36.0); MEAN PLT VOLUME 8.3 fl (7.5-11.1); PLATELET COUNT 237 10^3/uL (134-434); RBC 3.36 M/mm3 (3.60-5.2); RDW 18.6 % (11.6-15.6); WHITE BLOOD COUNT 6.2 K/mm3 (4.0-10.0)
[2022-11-27 11:20] LABS: INR 2.98 (0.83-1.09); PROTHROMBIN TIME (PATIENT) 34.6 SEC (9.7-13.0)
[2022-11-27] MEDS ORDERED: INSULIN (NOVOLOG) ASPART 100 UNITS/ML 10ML VIAL ONE (21:06)
[2022-11-27] MEDS: ROSUVASTATIN CA 10 MG TABLET PO SCH (21:33)
[2022-11-27] MEDS: LIDOCAINE PATCH REMOVAL MC SCH (21:34)
[2022-11-28 06:18] VITALS: BP 129/72; PULSE 72; TEMP 98.7
[2022-11-28] MEDS: GABAPENTIN 100 MG CAPSULE PO SCH ×2 (06:53→13:25)
[2022-11-28] MEDS: POLYETHYLENE GLYCOL (HEALTHYLAX) 3350 17 GM PACKET PO SCH ×2 (06:53→13:25)
[2022-11-28] MEDS: LEVOTHYROXINE 125 MCG, LEVOTHYROXINE 100 MCG PO SCH (06:53)
[2022-11-28] MEDS: INSULIN (LEVEMIR) 100 UNITS/ML UNITS SQ SCH (06:54)
[2022-11-28] MEDS: INSULIN SLIDING SCALE (NOVOLOG) 1 VIAL SQ SCH ×2 (07:00→12:10)
[2022-11-28] MEDS: ALBUTEROL SO4 0.083% IH SOL 2.5 MG/3 ML VIAL.NEB. NEB SCH (07:34)
[2022-11-28 09:52] LABS: INR 3.31 (0.83-1.09); PROTHROMBIN TIME (PATIENT) 38.5 SEC (9.7-13.0)
[2022-11-28] MEDS: QUEtiapine FUMARATE 200 MG TABLET PO SCH (10:41)
[2022-11-28] MEDS: FOLIC ACID 1 MG TABLET (FP) PO SCH (10:41)
[2022-11-28] MEDS: CARVEDILOL 3.125 MG TABLET (FP) PO SCH (10:41)
[2022-11-28] MEDS: MULTIVITAMINS (DAILY MVI) TABLET (FP) PO SCH (10:41)
[2022-11-28] MEDS: AMINO ACIDS/PROTEIN HYDROLYS 30 ML LIQUID.PKT PO SCH (10:41)
[2022-11-28] MEDS: PANTOPRAZOLE 40 MG TABLET PO SCH (10:41)
[2022-11-28] MEDS: LIDOCAINE 5% TOPICAL PATCH TP SCH (10:41)
[2022-11-28] MEDS: ANASTROZOLE 1 MG TABLET PO SCH (10:42)
[2022-11-28] MEDS: FLUTICASONE/UMECLIDIN/VILANTER(100-62.5-25 TRELEGY ELLIPTA) INAHLER IH SCH (10:42)
== END 2022-11-28 13:39 | DRG 683 ==
LOC: JER 18:30 → JERBED 21:24 → J4W 11-05 03:16 → J8W 11-13 20:47
PROVIDERS: ADMIT Internal Medicine; ATTEND Internal Medicine
PROC: 30233N1 Transfusion of Nonautologous Red Blood Cells into Peripheral Vein, Percutaneous Approach (ICD-10-PCS; 2022-11-07)
PROC: 0DB68ZX Excision of Stomach, Via Natural or Artificial Opening Endoscopic, Diagnostic (ICD-10-PCS; 2022-11-14)
PROC: 0W3P8ZZ Control Bleeding in Gastrointestinal Tract, Via Natural or Artificial Opening Endoscopic (ICD-10-PCS; 2022-11-18)
PROC: 0DBN8ZX Excision of Sigmoid Colon, Via Natural or Artificial Opening Endoscopic, Diagnostic (ICD-10-PCS; 2022-11-18)
PROC: 0DBL8ZX Excision of Transverse Colon, Via Natural or Artificial Opening Endoscopic, Diagnostic (ICD-10-PCS; 2022-11-18)
PROC: 0DBP8ZX Excision of Rectum, Via Natural or Artificial Opening Endoscopic, Diagnostic (ICD-10-PCS; principal; 2022-11-18 12:30)
DX: N17.9 Acute kidney failure, unspecified (principal); I45.2 Bifascicular block; J96.11 Chronic respiratory failure with hypoxia; N39.0 Urinary tract infection, site not specified; L03.115 Cellulitis of right lower limb; L03.116 Cellulitis of left lower limb; Z68.41 Body mass index [BMI] 40.0-44.9, adult; J98.11 Atelectasis; Z16.12 Extended spectrum beta lactamase (ESBL) resistance; R55 Syncope and collapse; I48.0 Paroxysmal atrial fibrillation; G47.33 Obstructive sleep apnea (adult) (pediatric); E03.9 Hypothyroidism, unspecified; J44.9 Chronic obstructive pulmonary disease, unspecified; E66.01 Morbid (severe) obesity due to excess calories; E11.51 Type 2 diabetes mellitus with diabetic peripheral angiopathy without gangrene; F25.0 Schizoaffective disorder, bipolar type; Z85.3 Personal history of malignant neoplasm of breast; D72.829 Elevated white blood cell count, unspecified; D50.0 Iron deficiency anemia secondary to blood loss (chronic); N18.9 Chronic kidney disease, unspecified; I13.10 Hypertensive heart and chronic kidney disease without heart failure, with stage 1 through stage 4 chronic kidney disease, or unspecified chronic kidney disease; K63.5 Polyp of colon; K62.1 Rectal polyp; E87.5 Hyperkalemia; E78.5 Hyperlipidemia, unspecified; I25.119 Atherosclerotic heart disease of native coronary artery with unspecified angina pectoris; K21.9 Gastro-esophageal reflux disease without esophagitis
CPT/HCPCS: 0241U-QW; 36415; 36430; 70450-TC; 71045-TC-FY; 71250-TC; 72125-TC; 73502-TC-RT-FY; 73560-TC-RT-FY; 74176-TC; 76775-TC; 80048; 80053; 80061; 81003; 82272; 82436; 82550; 82570; 82607; 82746; 82803; 82962; 82977; 83520; 83540; 83550; 83605; 84133; 84155; 84165; 84300; 84484; 85025; 85027; 85610; 85730; 86038; 86256; 86850; 86900; 86901; 86922; 87040; 87086; 87186; 87899; 88305-TC; 93005; 93010; 94640; 97116-GP; 97162-GP; 99285-25; C9803-CS; J1644; J1756; P9058; U0003; U0005

== ENCOUNTER 2022-12-18 12:23 | Inpatient (IN) | payer MEDICARE, OTHER ==
[2022-12-18 12:56] VITALS: BMI 47.5
[2022-12-18] MEDS ORDERED: SODIUM CHLORIDE 0.9% 500 ML INFUS.BAG IV ONE (13:19)
[2022-12-18] MEDS ORDERED: TETRACAINE 0.5% HCL 0.6ML DROPPER.BOTTLE OD ONE (13:29)
[2022-12-18] MEDS ORDERED: FLUORESCEIN NA 1 EA STRIP OD ONE (13:32)
[2022-12-18] MEDS ORDERED: TETRACAINE 0.5% OPHTH SOLN 2 ML BOTTLE ONE (13:42)
[2022-12-18] MEDS ORDERED: FLUORESCEIN NA 1 EA STRIP ONE (13:42)
[2022-12-18 13:55] LABS: EPI CELLS 6 /uL (0-25.1); HYALINE CASTS 1 /uL (0-3.1); PH,URINE 5.5 (5.0-8.0); URINE APPEARANCE TURBID; URINE BACTERIA >9,000 /uL (0-1359); URINE BILIRUBIN NEGATIVE (NEGATIVE); URINE COLOR YELLOW; URINE GLUCOSE (UA) NEGATIVE (NEGATIVE); URINE KETONE 1+ (NEGATIVE); URINE LEUK ESTERASE 3+ (NEGATIVE); URINE NITRITE NEGATIVE (NEGATIVE); URINE PROTEIN 2+ (NEGATIVE); URINE WBC 15175 /uL (0-25.8)
[2022-12-18 14:02] LABS: BASO % 0.8 % (0-2.0); EOS % 1.5 % (0-4.5); HEMATOCRIT 31.3 % (32.4-45.2); HEMOGLOBIN 10.2 GM/dL (10.7-15.3); LYMPH % 19.4 % (8-40); MCH 27.5 pg (25.7-33.7); MCHC 32.5 g/dl (32.0-36.0); MEAN CELL VOLUME 84.7 fl (80-96); MEAN PLT VOLUME 6.6 fl (7.5-11.1); MONO % 9.7 % (3.8-10.2); NEUT % 68.6 % (42.8-82.8); PLATELET COUNT 541 10^3/uL (134-434); RBC 3.69 M/mm3 (3.60-5.2); RDW 16.9 % (11.6-15.6)
[2022-12-18 14:14] LABS: PROTHROMBIN TIME (PATIENT) 74.8 SEC (9.7-13.0)
[2022-12-18 14:16] LABS: ACTIVATED PTT 64.5 SECONDS (25.2-36.5)
[2022-12-18 14:23] LABS: VENOUS O2 SATURATION 45.6 % (70-80); VENOUS PCO2 30.9 mmHg (38-52); VENOUS PH 7.438 (7.310-7.410)
[2022-12-18 14:23] LABS: URINE RBC 154.8 /uL (0-23.9)
[2022-12-18 14:30] LABS: ALBUMIN 2.9 g/dl (3.4-5.0); BLOOD UREA NITROGEN 37.4 mg/dL (7-18); CALCIUM 9.4 mg/dL (8.5-10.1)
[2022-12-18 14:33] LABS: CREATININE 2.4 mg/dL (0.55-1.3)
[2022-12-18 14:34] LABS: INR 6.57 (0.83-1.09)
[2022-12-18 14:35] LABS: BILIRUBIN,TOTAL 0.7 mg/dL (0.2-1); TOT PROT 8.3 g/dl (6.4-8.2)
[2022-12-18] MEDS ORDERED: CEFEPIME HCL/D5W 2 GM/50 ML BAG IVPB ONE (14:49)
[2022-12-18] MEDS ORDERED: VANCOMYCIN/WATER 2 GM/400 ML PREMIX BAG IVPB ONE (14:52)
[2022-12-18] MEDS ORDERED: CEFEPIME 2 GM/100 ML BAG IVPB ONE (14:56)
[2022-12-18] MEDS ORDERED: CIPROFLOXACIN 0.3% EYE DROPS 5 ML BOTTLE ONE (15:43)
[2022-12-18] MEDS: CIPROFLOXACIN 0.3% EYE DROPS 5 ML BOTTLE OD SCH ×3 (16:17→20:04)
[2022-12-18 18:34] VITALS: BP 155/65; PULSE 83; RESP 18; TEMP 98.6
== END 2022-12-18 20:47 | disposition short-term general hospital (02) | DRG 603 ==
LOC: JER 12:23 → JERBED 16:24
PROVIDERS: ADMIT Internal Medicine; ATTEND Internal Medicine
DX: L03.213 Periorbital cellulitis (principal); N39.0 Urinary tract infection, site not specified; I10 Essential (primary) hypertension; E78.5 Hyperlipidemia, unspecified; E11.9 Type 2 diabetes mellitus without complications; E03.9 Hypothyroidism, unspecified
CPT/HCPCS: 0241U-QW; 36415; 70450-TC; 70480-TC; 71045-TC-FY; 80053; 80307; 81003; 82803; 82962; 83605; 84484; 85025; 85610; 85730; 86850; 86900; 86901; 87040; 87086; 87186; 93005; 93010; 99285-25

== ENCOUNTER 2023-03-24 17:52 | Inpatient (IN) | payer OTHER ==
[2023-03-24] MEDS ORDERED: VANCOMYCIN 1 GM in D5W (PRE-DOCKED) 1,000 MG/250 ML (RESTRICTED TO ID ONLY IVPB ONE (21:10)
[2023-03-24] MEDS ORDERED: PIPERACILLIN/TAZOB 4.5 GM 4.5 GM in DEXTROSE 5%-WATER 100 ML IVPB ONE (21:10)
[2023-03-24] MEDS ORDERED: PIPERACILLIN/TAZOB 4.5 GM 4.5 GM/100 ML BAG IVPB ONE (21:17)
[2023-03-24] MEDS ORDERED: VANCOMYCIN/WATER FOR INJ (PEG) 1,000 MG/200 ML BAG IVPB ONE (21:17)
[2023-03-24] MEDS ORDERED: SODIUM CHLORIDE 0.9% 500 ML INFUS.BAG IV ONE (21:29)
[2023-03-24] MEDS ORDERED: morphine CARPU-JECT 4 MG/1 ML DISP.SYRIN IVPUSH ONE (21:41)
[2023-03-24] MEDS ORDERED: morphine SULFATE 4 MG/ML VIAL ONE (21:43)
[2023-03-24 21:54] LABS: EOS % 4.6 % (0-4.5); HEMATOCRIT 30.4 % (32.4-45.2); LYMPH % 22.9 % (8-40); MCH 27.8 pg (25.7-33.7); MCHC 32.8 g/dl (32.0-36.0); MEAN CELL VOLUME 84.7 fl (80-96); MEAN PLT VOLUME 7.3 fl (7.5-11.1); MONO % 7.9 % (3.8-10.2); NEUT % 63.6 % (42.8-82.8); PLATELET COUNT 381 10^3/uL (134-434); RBC 3.58 M/mm3 (3.60-5.2); RDW 16.6 % (11.6-15.6); WHITE BLOOD COUNT 9.8 K/mm3 (4.0-10.0)
[2023-03-24] MEDS: ALBUTEROL SO4 2.5/IPRATROPIUM 0.5 INH SOL 3 ML VIAL.NEB. NEB SCH ×4 (22:00→22:45)
[2023-03-24 22:13] LABS: POTASSIUM 4.1 mmol/L (3.5-5.1)
[2023-03-24 22:15] LABS: CALCIUM 9.7 mg/dL (8.5-10.1)
[2023-03-24 22:16] LABS: ALBUMIN 3.4 g/dl (3.4-5.0); BLOOD UREA NITROGEN 51.3 mg/dL (7-18)
[2023-03-24 22:19] LABS: CREATININE 2.8 mg/dL (0.55-1.3)
[2023-03-24 22:28] LABS: BILIRUBIN,TOTAL 0.3 mg/dL (0.2-1)
[2023-03-24] MEDS ORDERED: ALBUTEROL SO4 2.5/IPRATROPIUM 0.5 INH SOL 3 ML VIAL.NEB. NEB ONE ×2 (22:48)
[2023-03-24 23:17] LABS: EPI CELLS 8 /uL (0-25.1); HYALINE CASTS 0 /uL (0-3.1); PH,URINE 5.5 (5.0-8.0); URINE APPEARANCE CLOUDY; URINE BACTERIA >9,000 /uL (0-1359); URINE BILIRUBIN NEGATIVE (NEGATIVE); URINE COLOR YELLOW; URINE GLUCOSE (UA) NEGATIVE (NEGATIVE); URINE KETONE NEGATIVE (NEGATIVE); URINE LEUK ESTERASE 3+ (NEGATIVE); URINE NITRITE POSITIVE (NEGATIVE); URINE PROTEIN 1+ (NEGATIVE); URINE RBC 23 /uL (0-23.9); URINE UROBILINOGEN 0.2 mg/dL (0.2-1.0); URINE WBC 2633 /uL (0-25.8)
[2023-03-25] MEDS: DEXTROSE 5%-0.45% SALINE 1,000 ML IV SCH ×2 (03:51→23:24)
[2023-03-25] MEDS ORDERED: GABAPENTIN 100 MG CAPSULE PO ONE (04:02)
[2023-03-25] MEDS ORDERED: oxyCODONE HCL 5 MG TABLET PO ONE (04:15)
[2023-03-25] MEDS ORDERED: PIPERACILLIN/TAZOB 4.5 GM 4.5 GM in DEXTROSE 5%-WATER 100 ML IVPB SCH (09:00)
[2023-03-25] MEDS ORDERED: VANCOMYCIN/WATER 1250 MG 1,250 MG/250 ML BAG IVPB SCH ×2 (09:00→22:00)
[2023-03-25 09:28] LABS: INR 2.29 (0.83-1.09); PROTHROMBIN TIME (PATIENT) 26.4 SEC (9.7-13.0)
[2023-03-25 09:32] LABS: BASO % 0.5 % (0-2.0); EOS % 3.8 % (0-4.5); HEMATOCRIT 26.8 % (32.4-45.2); LYMPH % 10.3 % (8-40); MCH 28.4 pg (25.7-33.7); MCHC 33.5 g/dl (32.0-36.0); MEAN CELL VOLUME 84.7 fl (80-96); MEAN PLT VOLUME 7.6 fl (7.5-11.1); NEUT % 78.4 % (42.8-82.8); PLATELET COUNT 292 10^3/uL (134-434); RBC 3.16 M/mm3 (3.60-5.2); RDW 16.3 % (11.6-15.6); WHITE BLOOD COUNT 7.7 K/mm3 (4.0-10.0)
[2023-03-25 09:48] LABS: POTASSIUM 3.8 mmol/L (3.5-5.1)
[2023-03-25 09:59] LABS: ALBUMIN 2.8 g/dl (3.4-5.0); CALCIUM 8.7 mg/dL (8.5-10.1)
[2023-03-25 10:00] LABS: BLOOD UREA NITROGEN 45.7 mg/dL (7-18)
[2023-03-25 10:03] LABS: CREATININE 2.6 mg/dL (0.55-1.3)
[2023-03-25 10:04] LABS: BILIRUBIN,TOTAL 0.4 mg/dL (0.2-1); TOT PROT 6.6 g/dl (6.4-8.2)
[2023-03-25] MEDS ORDERED: oxyCODONE HCL 5 MG TABLET PO PRN (10:32)
[2023-03-25] MEDS ORDERED: hydrOXYzine PAMOATE 25 MG CAPSULE (FP) PO PRN (10:48)
[2023-03-25] MEDS: hydrALAZINE HCL 10 MG TABLET PO SCH ×2 (13:11→22:37)
[2023-03-25] MEDS: GABAPENTIN 100 MG CAPSULE PO SCH ×2 (13:12→22:36)
[2023-03-25] MEDS: busPIRone HCL 5 MG TABLET PO SCH ×2 (13:12→22:36)
[2023-03-25] MEDS: NYSTATIN 100,000 UNIT/GM TOPICAL CREAM 15 GM TUBE TP SCH ×2 (14:04→22:38)
[2023-03-25] MEDS ORDERED: CASPOFUNGIN ACETATE 70 MG in SODIUM CHLORIDE 250 ML IVPB ONE (15:30)
[2023-03-25] MEDS: MEROPENEM 1 GM in DEXTROSE 5%-WATER 100 ML IVPB SCH (15:40)
[2023-03-25] MEDS: INSULIN SLIDING SCALE (NOVOLOG) 1 VIAL SQ SCH (17:26)
[2023-03-25] MEDS ORDERED: QUEtiapine FUMARATE 400 MG TABLET PO SCH (22:00)
[2023-03-25] MEDS: QUEtiapine FUMARATE 200 MG TABLET PO SCH (22:34)
[2023-03-25] MEDS: CARVEDILOL 3.125 MG TABLET (FP) PO SCH (22:36)
[2023-03-25] MEDS: ATORVASTATIN CA 10 MG TABLET (FP) PO SCH (22:36)
[2023-03-26] MEDS: MEROPENEM 1 GM in DEXTROSE 5%-WATER 100 ML IVPB SCH ×3 (03:24→22:50)
[2023-03-26] MEDS: GABAPENTIN 100 MG CAPSULE PO SCH ×3 (05:38→22:01)
[2023-03-26] MEDS: hydrALAZINE HCL 10 MG TABLET PO SCH ×3 (05:38→22:01)
[2023-03-26] MEDS: busPIRone HCL 5 MG TABLET PO SCH ×3 (05:38→22:57)
[2023-03-26] MEDS: INSULIN SLIDING SCALE (NOVOLOG) 1 VIAL SQ SCH ×3 (06:01→17:35)
[2023-03-26] MEDS: LEVOTHYROXINE PO SCH (06:01)
[2023-03-26] MEDS ORDERED: LEVOTHYROXINE NA 125 MCG TABLET (FP) PO SCH (07:00)
[2023-03-26 10:39] LABS: BASO % 0.5 % (0-2.0); EOS % 8.5 % (0-4.5); HEMATOCRIT 28.6 % (32.4-45.2); HEMOGLOBIN 9.3 GM/dL (10.7-15.3); LYMPH % 21.2 % (8-40); MCH 28.2 pg (25.7-33.7); MCHC 32.5 g/dl (32.0-36.0); MEAN CELL VOLUME 86.7 fl (80-96); MEAN PLT VOLUME 7.5 fl (7.5-11.1); MONO % 7.7 % (3.8-10.2); NEUT % 62.1 % (42.8-82.8); PLATELET COUNT 296 10^3/uL (134-434); RDW 16.7 % (11.6-15.6)
[2023-03-26 10:47] LABS: INR 1.77 (0.83-1.09); PROTHROMBIN TIME (PATIENT) 20.4 SEC (9.7-13.0)
[2023-03-26 11:07] LABS: POTASSIUM 4.3 mmol/L (3.5-5.1)
[2023-03-26 11:17] LABS: CALCIUM 8.9 mg/dL (8.5-10.1)
[2023-03-26 11:19] LABS: ALBUMIN 2.7 g/dl (3.4-5.0)
[2023-03-26 11:20] LABS: CREATININE 2.4 mg/dL (0.55-1.3)
[2023-03-26 11:21] LABS: BILIRUBIN,TOTAL 0.6 mg/dL (0.2-1)
[2023-03-26 11:22] LABS: TOT PROT 6.6 g/dl (6.4-8.2)
[2023-03-26] MEDS: NYSTATIN 100,000 UNIT/GM TOPICAL CREAM 15 GM TUBE TP SCH ×2 (11:45→22:12)
[2023-03-26] MEDS: CARVEDILOL 3.125 MG TABLET (FP) PO SCH ×2 (11:45→22:00)
[2023-03-26] MEDS: QUEtiapine FUMARATE 200 MG TABLET PO SCH ×2 (11:46→22:01)
[2023-03-26 14:34] VITALS: BMI 40.8
[2023-03-26] MEDS: DEXTROSE 5%-0.45% SALINE 1,000 ML IV SCH (15:03)
[2023-03-26] MEDS ORDERED: VANCOMYCIN/WATER 1250 MG 1,250 MG/250 ML BAG IVPB SCH (15:30)
[2023-03-26] MEDS: CASPOFUNGIN ACETATE 50 MG in SODIUM CHLORIDE 250 ML IVPB SCH (16:35)
[2023-03-26] MEDS: ATORVASTATIN CA 10 MG TABLET (FP) PO SCH (22:00)
[2023-03-26] MEDS: BUDESONIDE/FORMETEROL FUMARATE 160/4.5 mcg INHALER IH SCH (22:58)
[2023-03-27] MEDS: DEXTROSE 5%-0.45% SALINE 1,000 ML IV SCH ×2 (00:18→17:26)
[2023-03-27] MEDS ORDERED: VANCOMYCIN/WATER 1250 MG 1,250 MG/250 ML BAG IVPB SCH (00:45)
[2023-03-27] MEDS: GABAPENTIN 100 MG CAPSULE PO SCH ×3 (05:42→22:00)
[2023-03-27] MEDS: hydrALAZINE HCL 10 MG TABLET PO SCH ×3 (05:42→21:59)
[2023-03-27] MEDS: INSULIN SLIDING SCALE (NOVOLOG) 1 VIAL SQ SCH ×3 (06:00→17:28)
[2023-03-27] MEDS: LEVOTHYROXINE PO SCH (06:01)
[2023-03-27] MEDS: busPIRone HCL 5 MG TABLET PO SCH ×3 (06:51→21:59)
[2023-03-27] MEDS ORDERED: INSULIN (LEVEMIR) 100 UNITS/ML UNITS SQ SCH (07:00)
[2023-03-27] MEDS ORDERED: AMINO ACIDS/PROTEIN HYDROLYS 30 ML LIQUID.PKT PO SCH (08:00)
[2023-03-27] MEDS ORDERED: MULTIVIT-MINERALS ORAL LIQUID PO SCH (10:00)
[2023-03-27 10:01] LABS: INR 1.38 (0.83-1.09); PROTHROMBIN TIME (PATIENT) 15.9 SEC (9.7-13.0)
[2023-03-27 10:14] LABS: POTASSIUM 4.6 mmol/L (3.5-5.1)
[2023-03-27 10:16] LABS: CALCIUM 9.5 mg/dL (8.5-10.1)
[2023-03-27 10:17] LABS: BLOOD UREA NITROGEN 33.2 mg/dL (7-18)
[2023-03-27 10:20] LABS: CREATININE 2.1 mg/dL (0.55-1.3)
[2023-03-27] MEDS: CARVEDILOL 3.125 MG TABLET (FP) PO SCH ×2 (10:24→21:59)
[2023-03-27] MEDS: BUDESONIDE/FORMETEROL FUMARATE 160/4.5 mcg INHALER IH SCH ×2 (10:28→22:01)
[2023-03-27] MEDS ORDERED: MEROPENEM 1 GM in DEXTROSE 5%-WATER 100 ML IVPB SCH (11:00)
[2023-03-27] MEDS: QUEtiapine FUMARATE 200 MG TABLET PO SCH ×2 (12:00→22:04)
[2023-03-27] MEDS: NYSTATIN 100,000 UNIT/GM TOPICAL CREAM 15 GM TUBE TP SCH ×2 (12:00→22:00)
[2023-03-27] MEDS ORDERED: LIDOCAINE HCL 1%, 10 MG/ML (10ML VIAL) MDV ONE (13:04)
[2023-03-27] MEDS ORDERED: BUPIVACAINE HCL/PF 0.5% (5MG/ML) 10 ML VIAL ONE (13:04)
[2023-03-27] MEDS ORDERED: GENTAMICIN SO4 80 MG/2 ML VIAL ONE (13:04)
[2023-03-27] MEDS ORDERED: MIDAZOLAM HCL 2 MG/2 ML SINGLE DOSE VIAL ONE (14:50)
[2023-03-27] MEDS ORDERED: oxyCODONE HCL 5 MG TABLET PO PRN (15:44)
[2023-03-27] MEDS ORDERED: ONDANSETRON 4 MG/2 ML VIAL IVPUSH PRN (15:44)
[2023-03-27] MEDS ORDERED: ACETAMINOPHEN INJECTION 100 ML IVPB ONE (15:47)
[2023-03-27] MEDS ORDERED: ACETAMINOPHEN 1000 MG/100 ML BAG IVPB ONE ×3 (15:50→20:45)
[2023-03-27] MEDS ORDERED: hydrOXYzine PAMOATE 25 MG CAPSULE (FP) PO PRN (16:17)
[2023-03-27] MEDS: COLLAGENASE CLOSTRIDIUM HIST. 30 GRAMS TUBE TP SCH (17:25)
[2023-03-27] MEDS: oxyCODONE HCL 5 MG TABLET PO PRN (17:26)
[2023-03-27] MEDS: CASPOFUNGIN ACETATE 50 MG in SODIUM CHLORIDE 250 ML IVPB SCH ×2 (17:30→18:35)
[2023-03-27] MEDS: ATORVASTATIN CA 10 MG TABLET (FP) PO SCH (21:59)
[2023-03-27] MEDS: MEROPENEM 1 GM in DEXTROSE 5%-WATER 100 ML IVPB SCH (22:04)
[2023-03-28] MEDS: oxyCODONE HCL 5 MG TABLET PO PRN ×2 (04:11→19:41)
[2023-03-28] MEDS: LEVOTHYROXINE PO SCH (06:00)
[2023-03-28] MEDS: hydrALAZINE HCL 10 MG TABLET PO SCH ×3 (06:00→21:37)
[2023-03-28] MEDS: INSULIN (LEVEMIR) 100 UNITS/ML UNITS SQ SCH (06:01)
[2023-03-28] MEDS: busPIRone HCL 5 MG TABLET PO SCH ×3 (06:01→21:36)
[2023-03-28] MEDS: GABAPENTIN 100 MG CAPSULE PO SCH ×3 (06:01→21:36)
[2023-03-28] MEDS: INSULIN SLIDING SCALE (NOVOLOG) 1 VIAL SQ SCH ×3 (06:02→16:24)
[2023-03-28] MEDS: AMINO ACIDS/PROTEIN HYDROLYS 30 ML LIQUID.PKT PO SCH (10:22)
[2023-03-28] MEDS: MEROPENEM 1 GM in DEXTROSE 5%-WATER 100 ML IVPB SCH ×2 (10:22→23:44)
[2023-03-28] MEDS: MULTIVIT-MINERALS ORAL LIQUID PO SCH (10:23)
[2023-03-28] MEDS: CARVEDILOL 3.125 MG TABLET (FP) PO SCH ×2 (10:25→21:36)
[2023-03-28] MEDS: NYSTATIN 100,000 UNIT/GM TOPICAL CREAM 15 GM TUBE TP SCH (10:25)
[2023-03-28] MEDS: COLLAGENASE CLOSTRIDIUM HIST. 30 GRAMS TUBE TP SCH (10:25)
[2023-03-28] MEDS: BUDESONIDE/FORMETEROL FUMARATE 160/4.5 mcg INHALER IH SCH ×2 (10:26→21:38)
[2023-03-28] MEDS: QUEtiapine FUMARATE 200 MG TABLET PO SCH ×2 (11:43→21:36)
[2023-03-28] MEDS: WARFARIN NA 5 MG, WARFARIN NA 3 MG PO SCH (17:54)
[2023-03-28] MEDS: CASPOFUNGIN ACETATE 50 MG in SODIUM CHLORIDE 250 ML IVPB SCH (17:56)
[2023-03-28] MEDS ORDERED: WARFARIN NA 7.5 MG TABLET PO SCH (18:00)
[2023-03-28] MEDS: DEXTROSE 5%-0.45% SALINE 1,000 ML IV SCH (19:28)
[2023-03-28] MEDS: ATORVASTATIN CA 10 MG TABLET (FP) PO SCH (21:36)
[2023-03-29] MEDS: VANCOMYCIN/WATER 1250 MG 1,250 MG/250 ML BAG IVPB SCH (00:50)
[2023-03-29] MEDS: busPIRone HCL 5 MG TABLET PO SCH ×3 (05:12→21:36)
[2023-03-29] MEDS: hydrALAZINE HCL 10 MG TABLET PO SCH ×3 (05:13→21:36)
[2023-03-29] MEDS: GABAPENTIN 100 MG CAPSULE PO SCH ×3 (05:13→21:36)
[2023-03-29] MEDS: LEVOTHYROXINE PO SCH (06:00)
[2023-03-29] MEDS: INSULIN SLIDING SCALE (NOVOLOG) 1 VIAL SQ SCH ×3 (06:00→18:19)
[2023-03-29] MEDS: INSULIN (LEVEMIR) 100 UNITS/ML UNITS SQ SCH (06:00)
[2023-03-29] MEDS: AMINO ACIDS/PROTEIN HYDROLYS 30 ML LIQUID.PKT PO SCH (09:20)
[2023-03-29] MEDS: CARVEDILOL 3.125 MG TABLET (FP) PO SCH ×2 (09:25→21:36)
[2023-03-29] MEDS: MULTIVIT-MINERALS ORAL LIQUID PO SCH (09:25)
[2023-03-29] MEDS: QUEtiapine FUMARATE 200 MG TABLET PO SCH ×2 (09:26→21:36)
[2023-03-29] MEDS: COLLAGENASE CLOSTRIDIUM HIST. 30 GRAMS TUBE TP SCH (09:26)
[2023-03-29] MEDS: BUDESONIDE/FORMETEROL FUMARATE 160/4.5 mcg INHALER IH SCH ×2 (09:26→21:38)
[2023-03-29 10:08] LABS: INR 1.2 (0.83-1.09); PROTHROMBIN TIME (PATIENT) 13.9 SEC (9.7-13.0)
[2023-03-29 10:09] LABS: BASO % 0.7 % (0-2.0); EOS % 6.8 % (0-4.5); HEMOGLOBIN 9.6 GM/dL (10.7-15.3); LYMPH % 23.9 % (8-40); MCH 28.1 pg (25.7-33.7); MCHC 33.1 g/dl (32.0-36.0); MEAN PLT VOLUME 7.1 fl (7.5-11.1); MONO % 12.4 % (3.8-10.2); NEUT % 56.2 % (42.8-82.8); PLATELET COUNT 297 10^3/uL (134-434); RBC 3.41 M/mm3 (3.60-5.2); RDW 16.8 % (11.6-15.6); WHITE BLOOD COUNT 6.3 K/mm3 (4.0-10.0)
[2023-03-29 10:34] LABS: POTASSIUM 4.3 mmol/L (3.5-5.1)
[2023-03-29 10:36] LABS: ALBUMIN 2.7 g/dl (3.4-5.0); BLOOD UREA NITROGEN 41.1 mg/dL (7-18); CALCIUM 9.1 mg/dL (8.5-10.1)
[2023-03-29 10:39] LABS: CREATININE 2.3 mg/dL (0.55-1.3)
[2023-03-29 10:41] LABS: BILIRUBIN,TOTAL 0.3 mg/dL (0.2-1); TOT PROT 6.6 g/dl (6.4-8.2)
[2023-03-29] MEDS: MEROPENEM 1 GM in DEXTROSE 5%-WATER 100 ML IVPB SCH ×2 (12:10→22:45)
[2023-03-29] MEDS: oxyCODONE HCL 5 MG TABLET PO PRN ×2 (14:31→22:44)
[2023-03-29] MEDS: HEPARIN - 25,000 UNIT in SODIUM CHLORIDE 495 ML IV SCH (15:48)
[2023-03-29] MEDS: DEXTROSE 5%-0.45% SALINE 1,000 ML IV SCH (17:23)
[2023-03-29] MEDS: CASPOFUNGIN ACETATE 50 MG in SODIUM CHLORIDE 250 ML IVPB SCH (17:24)
[2023-03-29] MEDS: WARFARIN NA 5 MG, WARFARIN NA 3 MG PO SCH (18:13)
[2023-03-29] MEDS: ATORVASTATIN CA 10 MG TABLET (FP) PO SCH (21:36)
[2023-03-29] MEDS: HEPARIN NA (PORCINE) 5,000 UNITS/ML 1ML VIAL IVPUSH PRN (22:35)
[2023-03-30] MEDS: hydrALAZINE HCL 10 MG TABLET PO SCH ×3 (06:29→22:00)
[2023-03-30] MEDS: LEVOTHYROXINE PO SCH (06:29)
[2023-03-30] MEDS: GABAPENTIN 100 MG CAPSULE PO SCH ×3 (06:29→22:00)
[2023-03-30] MEDS: INSULIN (LEVEMIR) 100 UNITS/ML UNITS SQ SCH (06:30)
[2023-03-30] MEDS: INSULIN SLIDING SCALE (NOVOLOG) 1 VIAL SQ SCH ×3 (06:30→17:18)
[2023-03-30] MEDS: busPIRone HCL 5 MG TABLET PO SCH ×3 (06:30→22:05)
[2023-03-30] MEDS: HEPARIN NA (PORCINE) 5,000 UNITS/ML 1ML VIAL IVPUSH PRN ×2 (07:02→17:03)
[2023-03-30] MEDS: AMINO ACIDS/PROTEIN HYDROLYS 30 ML LIQUID.PKT PO SCH (09:01)
[2023-03-30] MEDS: CARVEDILOL 3.125 MG TABLET (FP) PO SCH ×2 (09:49→22:00)
[2023-03-30] MEDS: MULTIVIT-MINERALS ORAL LIQUID PO SCH (09:49)
[2023-03-30] MEDS: QUEtiapine FUMARATE 200 MG TABLET PO SCH ×2 (09:49→22:06)
[2023-03-30] MEDS: BUDESONIDE/FORMETEROL FUMARATE 160/4.5 mcg INHALER IH SCH (09:50)
[2023-03-30] MEDS: COLLAGENASE CLOSTRIDIUM HIST. 30 GRAMS TUBE TP SCH (09:51)
[2023-03-30] MEDS: MEROPENEM 1 GM in DEXTROSE 5%-WATER 100 ML IVPB SCH (11:10)
[2023-03-30] MEDS: HEPARIN - 25,000 UNIT in SODIUM CHLORIDE 495 ML IV SCH ×2 (15:12→23:42)
[2023-03-30 15:56] LABS: INR 1.22 (0.83-1.09); PROTHROMBIN TIME (PATIENT) 14.1 SEC (9.7-13.0)
[2023-03-30] MEDS: DEXTROSE 5%-0.45% SALINE 1,000 ML IV SCH (17:15)
[2023-03-30] MEDS: CASPOFUNGIN ACETATE 50 MG in SODIUM CHLORIDE 250 ML IVPB SCH (17:15)
[2023-03-30] MEDS: WARFARIN NA 5 MG, WARFARIN NA 3 MG PO SCH (17:15)
[2023-03-30] MEDS ORDERED: NYSTATIN POWDER 100,000 UNITS/GM - 15 GM TOPICAL POWDER TP PRN (19:35)
[2023-03-30] MEDS: ATORVASTATIN CA 10 MG TABLET (FP) PO SCH (22:00)
[2023-03-31] MEDS: HEPARIN NA (PORCINE) 5,000 UNITS/ML 1ML VIAL IVPUSH PRN ×3 (00:01→19:40)
[2023-03-31] MEDS: BUDESONIDE/FORMETEROL FUMARATE 160/4.5 mcg INHALER IH SCH ×3 (01:05→21:58)
[2023-03-31] MEDS: MEROPENEM 1 GM in DEXTROSE 5%-WATER 100 ML IVPB SCH ×3 (01:05→22:48)
[2023-03-31] MEDS: VANCOMYCIN/WATER 1250 MG 1,250 MG/250 ML BAG IVPB SCH (02:40)
[2023-03-31] MEDS: INSULIN (LEVEMIR) 100 UNITS/ML UNITS SQ SCH (06:19)
[2023-03-31] MEDS: LEVOTHYROXINE PO SCH (06:20)
[2023-03-31] MEDS: GABAPENTIN 100 MG CAPSULE PO SCH ×3 (06:20→21:56)
[2023-03-31] MEDS: busPIRone HCL 5 MG TABLET PO SCH ×3 (06:24→21:55)
[2023-03-31] MEDS: INSULIN SLIDING SCALE (NOVOLOG) 1 VIAL SQ SCH ×3 (06:26→16:57)
[2023-03-31] MEDS: hydrALAZINE HCL 10 MG TABLET PO SCH ×3 (06:26→21:55)
[2023-03-31 09:18] LABS: HEMATOCRIT 27.4 % (32.4-45.2); MCHC 32.9 g/dl (32.0-36.0); MEAN CELL VOLUME 85.1 fl (80-96); MEAN PLT VOLUME 7.7 fl (7.5-11.1); PLATELET COUNT 267 10^3/uL (134-434); RBC 3.22 M/mm3 (3.60-5.2); RDW 16.8 % (11.6-15.6); WHITE BLOOD COUNT 6.1 K/mm3 (4.0-10.0)
[2023-03-31] MEDS: CARVEDILOL 3.125 MG TABLET (FP) PO SCH ×2 (09:28→21:56)
[2023-03-31] MEDS: AMINO ACIDS/PROTEIN HYDROLYS 30 ML LIQUID.PKT PO SCH (09:28)
[2023-03-31] MEDS: MULTIVIT-MINERALS ORAL LIQUID PO SCH (09:28)
[2023-03-31] MEDS: QUEtiapine FUMARATE 200 MG TABLET PO SCH ×2 (09:28→21:56)
[2023-03-31] MEDS: oxyCODONE HCL 5 MG TABLET PO PRN (09:31)
[2023-03-31] MEDS: HEPARIN - 25,000 UNIT in SODIUM CHLORIDE 495 ML IV SCH (12:34)
[2023-03-31] MEDS: COLLAGENASE CLOSTRIDIUM HIST. 30 GRAMS TUBE TP SCH (12:36)
[2023-03-31 14:08] LABS: INR 1.28 (0.83-1.09); PROTHROMBIN TIME (PATIENT) 14.8 SEC (9.7-13.0)
[2023-03-31] MEDS: DEXTROSE 5%-0.45% SALINE 1,000 ML IV SCH (16:57)
[2023-03-31] MEDS: WARFARIN NA 5 MG, WARFARIN NA 3 MG PO SCH (17:22)
[2023-03-31] MEDS: CASPOFUNGIN ACETATE 50 MG in SODIUM CHLORIDE 250 ML IVPB SCH (17:23)
[2023-03-31 19:18] LABS: INR 1.31 (0.83-1.09); PROTHROMBIN TIME (PATIENT) 15.2 SEC (9.7-13.0)
[2023-03-31] MEDS: ATORVASTATIN CA 10 MG TABLET (FP) PO SCH (21:55)
[2023-04-01] MEDS: oxyCODONE HCL 5 MG TABLET PO PRN ×2 (00:51→21:55)
[2023-04-01] MEDS: HEPARIN NA (PORCINE) 5,000 UNITS/ML 1ML VIAL IVPUSH PRN (02:07)
[2023-04-01] MEDS: HEPARIN - 25,000 UNIT in SODIUM CHLORIDE 495 ML IV SCH ×3 (04:46→19:26)
[2023-04-01] MEDS: GABAPENTIN 100 MG CAPSULE PO SCH ×3 (06:01→21:54)
[2023-04-01] MEDS: LEVOTHYROXINE PO SCH (06:01)
[2023-04-01] MEDS: hydrALAZINE HCL 10 MG TABLET PO SCH ×3 (06:01→21:54)
[2023-04-01] MEDS: busPIRone HCL 5 MG TABLET PO SCH ×3 (06:01→21:54)
[2023-04-01] MEDS: INSULIN (LEVEMIR) 100 UNITS/ML UNITS SQ SCH (06:02)
[2023-04-01] MEDS: INSULIN SLIDING SCALE (NOVOLOG) 1 VIAL SQ SCH ×3 (06:02→16:46)
[2023-04-01] MEDS: AMINO ACIDS/PROTEIN HYDROLYS 30 ML LIQUID.PKT PO SCH (08:42)
[2023-04-01 08:56] LABS: HEMATOCRIT 26.2 % (32.4-45.2); HEMOGLOBIN 8.6 GM/dL (10.7-15.3); MCH 27.8 pg (25.7-33.7); MCHC 32.7 g/dl (32.0-36.0); MEAN PLT VOLUME 7.7 fl (7.5-11.1); PLATELET COUNT 256 10^3/uL (134-434); RBC 3.09 M/mm3 (3.60-5.2); RDW 16.8 % (11.6-15.6); WHITE BLOOD COUNT 4.8 K/mm3 (4.0-10.0)
[2023-04-01 08:58] LABS: INR 1.31 (0.83-1.09); PROTHROMBIN TIME (PATIENT) 15.2 SEC (9.7-13.0)
[2023-04-01 09:01] LABS: ACTIVATED PTT 55.2 SECONDS (25.2-36.5)
[2023-04-01 09:10] LABS: POTASSIUM 4.5 mmol/L (3.5-5.1)
[2023-04-01 09:14] LABS: ALBUMIN 2.6 g/dl (3.4-5.0); BLOOD UREA NITROGEN 46.2 mg/dL (7-18)
[2023-04-01 09:17] LABS: CREATININE 1.9 mg/dL (0.55-1.3)
[2023-04-01 09:18] LABS: TOT PROT 6.4 g/dl (6.4-8.2)
[2023-04-01 09:19] LABS: BILIRUBIN,TOTAL 0.2 mg/dL (0.2-1)
[2023-04-01] MEDS: QUEtiapine FUMARATE 200 MG TABLET PO SCH ×2 (11:27→21:55)
[2023-04-01] MEDS: CARVEDILOL 3.125 MG TABLET (FP) PO SCH ×2 (11:28→21:54)
[2023-04-01] MEDS: MULTIVIT-MINERALS ORAL LIQUID PO SCH (11:28)
[2023-04-01] MEDS: COLLAGENASE CLOSTRIDIUM HIST. 30 GRAMS TUBE TP SCH (11:28)
[2023-04-01] MEDS: BUDESONIDE/FORMETEROL FUMARATE 160/4.5 mcg INHALER IH SCH ×2 (11:29→22:00)
[2023-04-01] MEDS: MEROPENEM 1 GM in DEXTROSE 5%-WATER 100 ML IVPB SCH ×2 (11:30→22:02)
[2023-04-01] MEDS: DEXTROSE 5%-0.45% SALINE 1,000 ML IV SCH (11:31)
[2023-04-01] MEDS ORDERED: ALBUTEROL SO4 0.083% IH SOL 2.5 MG/3 ML VIAL.NEB. NEB PRN (13:46)
[2023-04-01] MEDS: TIOTROPIUM BROMIDE 2.5 MCG (SPIRIVA) RESPIMAT INHALER IH SCH (15:29)
[2023-04-01] MEDS: CASPOFUNGIN ACETATE 50 MG in SODIUM CHLORIDE 250 ML IVPB SCH (16:42)
[2023-04-01] MEDS: WARFARIN NA 5 MG TABLET PO SCH (18:22)
[2023-04-01] MEDS: ATORVASTATIN CA 10 MG TABLET (FP) PO SCH (21:55)
[2023-04-02] MEDS: VANCOMYCIN/WATER 1250 MG 1,250 MG/250 ML BAG IVPB SCH (00:58)
[2023-04-02] MEDS: LEVOTHYROXINE PO SCH (06:17)
[2023-04-02] MEDS: GABAPENTIN 100 MG CAPSULE PO SCH ×3 (06:17→22:53)
[2023-04-02] MEDS: busPIRone HCL 5 MG TABLET PO SCH ×3 (06:17→22:53)
[2023-04-02] MEDS: hydrALAZINE HCL 10 MG TABLET PO SCH ×3 (06:17→22:53)
[2023-04-02] MEDS: INSULIN (LEVEMIR) 100 UNITS/ML UNITS SQ SCH (06:18)
[2023-04-02] MEDS: INSULIN SLIDING SCALE (NOVOLOG) 1 VIAL SQ SCH ×3 (06:18→17:06)
[2023-04-02] MEDS: oxyCODONE HCL 5 MG TABLET PO PRN (06:25)
[2023-04-02 08:54] LABS: HEMATOCRIT 27.3 % (32.4-45.2); HEMOGLOBIN 9.1 GM/dL (10.7-15.3); MCH 28.6 pg (25.7-33.7); MCHC 33.4 g/dl (32.0-36.0); MEAN CELL VOLUME 85.7 fl (80-96); PLATELET COUNT 256 10^3/uL (134-434); RBC 3.18 M/mm3 (3.60-5.2); RDW 17.1 % (11.6-15.6); WHITE BLOOD COUNT 5.7 K/mm3 (4.0-10.0)
[2023-04-02 09:03] LABS: INR 1.38 (0.83-1.09); PROTHROMBIN TIME (PATIENT) 15.9 SEC (9.7-13.0)
[2023-04-02] MEDS: AMINO ACIDS/PROTEIN HYDROLYS 30 ML LIQUID.PKT PO SCH (09:05)
[2023-04-02] MEDS: QUEtiapine FUMARATE 200 MG TABLET PO SCH ×2 (09:05→22:53)
[2023-04-02] MEDS: CARVEDILOL 3.125 MG TABLET (FP) PO SCH ×2 (09:05→22:53)
[2023-04-02] MEDS: TIOTROPIUM BROMIDE 2.5 MCG (SPIRIVA) RESPIMAT INHALER IH SCH (09:06)
[2023-04-02] MEDS: COLLAGENASE CLOSTRIDIUM HIST. 30 GRAMS TUBE TP SCH (09:06)
[2023-04-02] MEDS: BUDESONIDE/FORMETEROL FUMARATE 160/4.5 mcg INHALER IH SCH ×2 (09:07→22:54)
[2023-04-02] MEDS: MULTIVIT-MINERALS ORAL LIQUID PO SCH (09:07)
[2023-04-02] MEDS: MEROPENEM 1 GM in DEXTROSE 5%-WATER 100 ML IVPB SCH (11:14)
[2023-04-02] MEDS: HEPARIN - 25,000 UNIT in SODIUM CHLORIDE 495 ML IV SCH (11:15)
[2023-04-02] MEDS: LIDOCAINE 5% TOPICAL PATCH TP SCH (14:45)
[2023-04-02] MEDS: POLYETHYLENE GLYCOL (HEALTHYLAX) 3350 17 GM PACKET PO SCH ×2 (14:45→22:53)
[2023-04-02] MEDS: WARFARIN NA 5 MG TABLET PO SCH (18:27)
[2023-04-02] MEDS: ATORVASTATIN CA 10 MG TABLET (FP) PO SCH (22:53)
[2023-04-02] MEDS: LIDOCAINE PATCH REMOVAL MC SCH (22:53)
[2023-04-03] MEDS: oxyCODONE HCL 5 MG TABLET PO PRN ×2 (01:06→15:31)
[2023-04-03] MEDS: HEPARIN - 25,000 UNIT in SODIUM CHLORIDE 495 ML IV SCH ×2 (02:43→17:33)
[2023-04-03] MEDS: busPIRone HCL 5 MG TABLET PO SCH ×3 (06:58→21:51)
[2023-04-03] MEDS: hydrALAZINE HCL 10 MG TABLET PO SCH ×3 (06:58→21:52)
[2023-04-03] MEDS: LEVOTHYROXINE PO SCH (06:58)
[2023-04-03] MEDS: GABAPENTIN 100 MG CAPSULE PO SCH ×3 (06:58→21:52)
[2023-04-03] MEDS: INSULIN (LEVEMIR) 100 UNITS/ML UNITS SQ SCH (07:06)
[2023-04-03] MEDS: INSULIN SLIDING SCALE (NOVOLOG) 1 VIAL SQ SCH ×3 (07:06→17:33)
[2023-04-03] MEDS: AMINO ACIDS/PROTEIN HYDROLYS 30 ML LIQUID.PKT PO SCH (08:44)
[2023-04-03] MEDS: CARVEDILOL 3.125 MG TABLET (FP) PO SCH ×2 (09:10→21:52)
[2023-04-03] MEDS: QUEtiapine FUMARATE 200 MG TABLET PO SCH ×2 (09:11→21:52)
[2023-04-03] MEDS: LIDOCAINE 5% TOPICAL PATCH TP SCH (09:11)
[2023-04-03] MEDS: MULTIVIT-MINERALS ORAL LIQUID PO SCH (09:11)
[2023-04-03] MEDS: POLYETHYLENE GLYCOL (HEALTHYLAX) 3350 17 GM PACKET PO SCH ×2 (09:11→21:52)
[2023-04-03 09:50] LABS: HEMATOCRIT 28.1 % (32.4-45.2); HEMOGLOBIN 9.2 GM/dL (10.7-15.3); MCHC 32.8 g/dl (32.0-36.0); MEAN CELL VOLUME 85.5 fl (80-96); MEAN PLT VOLUME 7.7 fl (7.5-11.1); PLATELET COUNT 244 10^3/uL (134-434); RBC 3.29 M/mm3 (3.60-5.2); RDW 16.9 % (11.6-15.6)
[2023-04-03 09:53] LABS: INR 1.56 (0.83-1.09)
[2023-04-03] MEDS: COLLAGENASE CLOSTRIDIUM HIST. 30 GRAMS TUBE TP SCH (10:10)
[2023-04-03] MEDS: TIOTROPIUM BROMIDE 2.5 MCG (SPIRIVA) RESPIMAT INHALER IH SCH (10:16)
[2023-04-03] MEDS: BUDESONIDE/FORMETEROL FUMARATE 160/4.5 mcg INHALER IH SCH ×2 (10:16→21:52)
[2023-04-03] MEDS: WARFARIN NA 5 MG TABLET PO SCH (17:44)
[2023-04-03] MEDS ORDERED: WARFARIN NA 2 MG TABLET PO ONE (18:00)
[2023-04-03] MEDS: ATORVASTATIN CA 10 MG TABLET (FP) PO SCH (21:52)
[2023-04-03] MEDS: LIDOCAINE PATCH REMOVAL MC SCH (21:52)
[2023-04-04] MEDS: busPIRone HCL 5 MG TABLET PO SCH ×3 (06:28→22:59)
[2023-04-04] MEDS: GABAPENTIN 100 MG CAPSULE PO SCH ×3 (06:28→22:59)
[2023-04-04] MEDS: hydrALAZINE HCL 10 MG TABLET PO SCH ×3 (06:28→22:59)
[2023-04-04] MEDS: INSULIN (LEVEMIR) 100 UNITS/ML UNITS SQ SCH (06:37)
[2023-04-04] MEDS: INSULIN SLIDING SCALE (NOVOLOG) 1 VIAL SQ SCH ×3 (06:37→17:39)
[2023-04-04] MEDS: LEVOTHYROXINE PO SCH (06:44)
[2023-04-04] MEDS: AMINO ACIDS/PROTEIN HYDROLYS 30 ML LIQUID.PKT PO SCH (08:57)
[2023-04-04 09:03] LABS: HEMOGLOBIN 9.2 GM/dL (10.7-15.3); MCH 28.6 pg (25.7-33.7); MCHC 33.9 g/dl (32.0-36.0); MEAN CELL VOLUME 84.2 fl (80-96); MEAN PLT VOLUME 7.9 fl (7.5-11.1); PLATELET COUNT 245 10^3/uL (134-434); RBC 3.21 M/mm3 (3.60-5.2); RDW 17.2 % (11.6-15.6); WHITE BLOOD COUNT 6.1 K/mm3 (4.0-10.0)
[2023-04-04 09:06] LABS: INR 1.72 (0.83-1.09); PROTHROMBIN TIME (PATIENT) 19.8 SEC (9.7-13.0)
[2023-04-04] MEDS: LIDOCAINE 5% TOPICAL PATCH TP SCH (09:54)
[2023-04-04] MEDS: QUEtiapine FUMARATE 200 MG TABLET PO SCH ×2 (09:54→22:59)
[2023-04-04] MEDS: MULTIVIT-MINERALS ORAL LIQUID PO SCH (09:54)
[2023-04-04] MEDS: CARVEDILOL 3.125 MG TABLET (FP) PO SCH ×2 (09:54→22:59)
[2023-04-04] MEDS: POLYETHYLENE GLYCOL (HEALTHYLAX) 3350 17 GM PACKET PO SCH ×2 (09:54→22:59)
[2023-04-04] MEDS: BUDESONIDE/FORMETEROL FUMARATE 160/4.5 mcg INHALER IH SCH ×2 (09:55→23:04)
[2023-04-04] MEDS: COLLAGENASE CLOSTRIDIUM HIST. 30 GRAMS TUBE TP SCH (09:57)
[2023-04-04] MEDS: TIOTROPIUM BROMIDE 2.5 MCG (SPIRIVA) RESPIMAT INHALER IH SCH (10:34)
[2023-04-04 11:48] LABS: POTASSIUM 5.5 mmol/L (3.5-5.1)
[2023-04-04 11:51] LABS: ALBUMIN 2.9 g/dl (3.4-5.0); BLOOD UREA NITROGEN 56.9 mg/dL (7-18); CALCIUM 9.6 mg/dL (8.5-10.1)
[2023-04-04 11:54] LABS: CREATININE 1.9 mg/dL (0.55-1.3)
[2023-04-04 11:56] LABS: BILIRUBIN,TOTAL 0.2 mg/dL (0.2-1); TOT PROT 6.7 g/dl (6.4-8.2)
[2023-04-04] MEDS: HEPARIN - 25,000 UNIT in SODIUM CHLORIDE 495 ML IV SCH (11:57)
[2023-04-04] MEDS: WARFARIN NA 5 MG TABLET PO SCH (17:05)
[2023-04-04] MEDS: SODIUM ZIRCONIUM CYCLOSILICATE (LOKELMA) 5 GM PACKET PO SCH (17:05)
[2023-04-04] MEDS ORDERED: WARFARIN NA 2 MG TABLET PO ONE (18:00)
[2023-04-04] MEDS: ATORVASTATIN CA 10 MG TABLET (FP) PO SCH (22:59)
[2023-04-04] MEDS: LIDOCAINE PATCH REMOVAL MC SCH (23:04)
[2023-04-05] MEDS: HEPARIN - 25,000 UNIT in SODIUM CHLORIDE 495 ML IV SCH ×2 (01:38→17:50)
[2023-04-05] MEDS: INSULIN SLIDING SCALE (NOVOLOG) 1 VIAL SQ SCH ×3 (06:51→17:07)
[2023-04-05] MEDS: INSULIN (LEVEMIR) 100 UNITS/ML UNITS SQ SCH (06:52)
[2023-04-05] MEDS: GABAPENTIN 100 MG CAPSULE PO SCH ×3 (06:53→21:27)
[2023-04-05] MEDS: LEVOTHYROXINE PO SCH (06:53)
[2023-04-05] MEDS: busPIRone HCL 5 MG TABLET PO SCH ×3 (06:53→21:26)
[2023-04-05] MEDS: hydrALAZINE HCL 10 MG TABLET PO SCH ×3 (06:53→21:26)
[2023-04-05] MEDS: SODIUM ZIRCONIUM CYCLOSILICATE (LOKELMA) 5 GM PACKET PO SCH (09:05)
[2023-04-05] MEDS: POLYETHYLENE GLYCOL (HEALTHYLAX) 3350 17 GM PACKET PO SCH ×2 (09:05→21:27)
[2023-04-05] MEDS: LIDOCAINE 5% TOPICAL PATCH TP SCH (09:05)
[2023-04-05] MEDS: QUEtiapine FUMARATE 200 MG TABLET PO SCH ×2 (09:06→21:27)
[2023-04-05] MEDS: MULTIVIT-MINERALS ORAL LIQUID PO SCH (09:06)
[2023-04-05] MEDS: CARVEDILOL 3.125 MG TABLET (FP) PO SCH ×2 (09:06→21:27)
[2023-04-05] MEDS: AMINO ACIDS/PROTEIN HYDROLYS 30 ML LIQUID.PKT PO SCH (09:06)
[2023-04-05] MEDS: ZINC SULFATE 220 MG CAPSULE (FP) PO SCH (09:06)
[2023-04-05] MEDS: BUDESONIDE/FORMETEROL FUMARATE 160/4.5 mcg INHALER IH SCH ×2 (09:15→21:27)
[2023-04-05] MEDS: TIOTROPIUM BROMIDE 2.5 MCG (SPIRIVA) RESPIMAT INHALER IH SCH (09:15)
[2023-04-05] MEDS: COLLAGENASE CLOSTRIDIUM HIST. 30 GRAMS TUBE TP SCH (09:16)
[2023-04-05] MEDS ORDERED: oxyCODONE HCL 5 MG TABLET PO PRN (09:46)
[2023-04-05 10:19] LABS: POTASSIUM 5.1 mmol/L (3.5-5.1)
[2023-04-05 10:22] LABS: ALBUMIN 2.8 g/dl (3.4-5.0); BLOOD UREA NITROGEN 57.9 mg/dL (7-18); CALCIUM 9.4 mg/dL (8.5-10.1)
[2023-04-05 10:23] LABS: INR 1.66 (0.83-1.09); PROTHROMBIN TIME (PATIENT) 19.2 SEC (9.7-13.0)
[2023-04-05 10:26] LABS: ACTIVATED PTT 50.3 SECONDS (25.2-36.5); BILIRUBIN,TOTAL 0.3 mg/dL (0.2-1); TOT PROT 6.7 g/dl (6.4-8.2)
[2023-04-05 12:17] VITALS: RESP 18
[2023-04-05] MEDS: WARFARIN NA 5 MG TABLET PO SCH (17:15)
[2023-04-05] MEDS ORDERED: WARFARIN NA 2 MG TABLET PO ONE (18:00)
[2023-04-05] MEDS: ATORVASTATIN CA 10 MG TABLET (FP) PO SCH (21:27)
[2023-04-05] MEDS: LIDOCAINE PATCH REMOVAL MC SCH (21:27)
[2023-04-06] MEDS: busPIRone HCL 5 MG TABLET PO SCH ×2 (06:11→13:44)
[2023-04-06] MEDS: hydrALAZINE HCL 10 MG TABLET PO SCH ×2 (06:11→13:44)
[2023-04-06] MEDS: GABAPENTIN 100 MG CAPSULE PO SCH ×2 (06:11→13:44)
[2023-04-06] MEDS: INSULIN SLIDING SCALE (NOVOLOG) 1 VIAL SQ SCH ×2 (06:16→11:16)
[2023-04-06] MEDS: INSULIN (LEVEMIR) 100 UNITS/ML UNITS SQ SCH (06:16)
[2023-04-06] MEDS: LEVOTHYROXINE PO SCH (06:22)
[2023-04-06] MEDS: AMINO ACIDS/PROTEIN HYDROLYS 30 ML LIQUID.PKT PO SCH (08:59)
[2023-04-06] MEDS: CARVEDILOL 3.125 MG TABLET (FP) PO SCH (09:22)
[2023-04-06] MEDS: QUEtiapine FUMARATE 200 MG TABLET PO SCH (09:22)
[2023-04-06] MEDS: MULTIVIT-MINERALS ORAL LIQUID PO SCH (09:22)
[2023-04-06] MEDS: LIDOCAINE 5% TOPICAL PATCH TP SCH (09:23)
[2023-04-06] MEDS: ZINC SULFATE 220 MG CAPSULE (FP) PO SCH (09:23)
[2023-04-06] MEDS: TIOTROPIUM BROMIDE 2.5 MCG (SPIRIVA) RESPIMAT INHALER IH SCH (10:05)
[2023-04-06] MEDS: BUDESONIDE/FORMETEROL FUMARATE 160/4.5 mcg INHALER IH SCH (10:06)
[2023-04-06 10:51] LABS: INR 1.85 (0.83-1.09); PROTHROMBIN TIME (PATIENT) 21.3 SEC (9.7-13.0)
[2023-04-06] MEDS: POLYETHYLENE GLYCOL (HEALTHYLAX) 3350 17 GM PACKET PO SCH (10:57)
[2023-04-06 11:06] LABS: POTASSIUM 5.3 mmol/L (3.5-5.1)
[2023-04-06 11:19] LABS: BLOOD UREA NITROGEN 58.3 mg/dL (7-18); CALCIUM 9.8 mg/dL (8.5-10.1)
[2023-04-06] MEDS: HEPARIN - 25,000 UNIT in SODIUM CHLORIDE 495 ML IV SCH (11:19)
[2023-04-06 11:23] LABS: CREATININE 1.9 mg/dL (0.55-1.3)
[2023-04-06 11:24] LABS: BILIRUBIN,TOTAL 0.3 mg/dL (0.2-1); TOT PROT 7.2 g/dl (6.4-8.2)
[2023-04-06] MEDS: SODIUM ZIRCONIUM CYCLOSILICATE (LOKELMA) 5 GM PACKET PO SCH (11:30)
[2023-04-06] MEDS: COLLAGENASE CLOSTRIDIUM HIST. 30 GRAMS TUBE TP SCH (13:26)
[2023-04-06] MEDS ORDERED: WARFARIN NA PO ONE (13:45)
[2023-04-06 13:56] VITALS: BP 140/89; PULSE 83; TEMP 97.5
[2023-04-06] MEDS ORDERED: WARFARIN NA PO SCH (18:00)
[2023-04-06] MEDS ORDERED: WARFARIN NA 2 MG TABLET PO ONE (18:00)
== END 2023-04-06 15:11 | disposition home or self-care (01) | DRG 571 ==
LOC: JER 17:52 → JERBED 22:31 → J5S 03-25 03:31 → J6S 03-31 13:26
PROVIDERS: ADMIT Internal Medicine; ATTEND Internal Medicine
PROC: 0JBL0ZZ Excision of Right Upper Leg Subcutaneous Tissue and Fascia, Open Approach (ICD-10-PCS; 2023-03-27)
PROC: 0JBM0ZZ Excision of Left Upper Leg Subcutaneous Tissue and Fascia, Open Approach (ICD-10-PCS; principal; 2023-03-27 14:00)
DX: L89.313 Pressure ulcer of right buttock, stage 3 (principal); N17.9 Acute kidney failure, unspecified; N39.0 Urinary tract infection, site not specified; Z68.41 Body mass index [BMI] 40.0-44.9, adult; B36.9 Superficial mycosis, unspecified; J44.9 Chronic obstructive pulmonary disease, unspecified; E78.5 Hyperlipidemia, unspecified; E03.9 Hypothyroidism, unspecified; G40.909 Epilepsy, unspecified, not intractable, without status epilepticus; Z79.4 Long term (current) use of insulin; I25.10 Atherosclerotic heart disease of native coronary artery without angina pectoris; I48.0 Paroxysmal atrial fibrillation; E66.01 Morbid (severe) obesity due to excess calories; Z85.3 Personal history of malignant neoplasm of breast; G47.33 Obstructive sleep apnea (adult) (pediatric); Z99.81 Dependence on supplemental oxygen; Z86.16 Personal history of COVID-19; F25.0 Schizoaffective disorder, bipolar type; E11.22 Type 2 diabetes mellitus with diabetic chronic kidney disease; I12.9 Hypertensive chronic kidney disease with stage 1 through stage 4 chronic kidney disease, or unspecified chronic kidney disease; L89.320 Pressure ulcer of left buttock, unstageable; N18.9 Chronic kidney disease, unspecified; D64.9 Anemia, unspecified; M79.3 Panniculitis, unspecified; E87.5 Hyperkalemia
CPT/HCPCS: 36415; 71045-TC-FY; 76775-TC; 80048; 80053; 81003; 82272; 82570; 82962; 83735; 84156; 84300; 85025; 85027; 85610; 85651; 85730; 86140; 87040; 87086; 87186; 93005; 93010; 94760; 97116-GP; 99285-25; C9803-CS; G0463-25; G0480; J0637; J1644; U0003; U0005

== ENCOUNTER 2024-01-30 15:40 | Inpatient (IN) | payer OTHER ==
[2024-01-30] MEDS ORDERED: TRIMETHOBENZAMIDE HCL 200MG/2ML INJ IM ONE (17:15)
[2024-01-30] MEDS ORDERED: ACETAMINOPHEN INJECTION 100 ML IVPB ONE (17:15)
[2024-01-30] MEDS ORDERED: ALBUTEROL SO4 2.5/IPRATROPIUM 0.5 INH SOL 3 ML VIAL.NEB. NEB ONE ×2 (17:15→19:06)
[2024-01-30] MEDS ORDERED: FAMOTIDINE 20 MG/50 ML IVPB 20 MG/50 ML MG IVPB ONE (17:16)
[2024-01-30 17:29] LABS: BASO % 0.2 % (0-2.0); EOS % 0.5 % (0-4.5); HEMOGLOBIN 10.3 GM/dL (10.7-15.3); INR 3.6 (0.83-1.09); LYMPH % 7.6 % (8-40); MCH 27.2 pg (25.7-33.7); MCHC 32.3 g/dl (32.0-36.0); MEAN CELL VOLUME 84.3 fl (80-96); MEAN PLT VOLUME 8.2 fl (7.5-11.1); MONO % 11.6 % (3.8-10.2); NEUT % 80.1 % (42.8-82.8); PLATELET COUNT 262 10^3/uL (134-434); PROTHROMBIN TIME (PATIENT) 41.2 SEC (9.7-13.0); WHITE BLOOD COUNT 8.6 K/mm3 (4.0-10.0)
[2024-01-30] MEDS: FAMOTIDINE 20 MG/50 ML IVPB 20 MG/50 ML MG IVPB ONE (17:31)
[2024-01-30] MEDS: SODIUM CHLORIDE 0.9% 500 ML INFUS.BAG IV ONE (17:31)
[2024-01-30] MEDS: ACETAMINOPHEN 1000 MG/100 ML BAG IVPB ONE (17:31)
[2024-01-30] MEDS: TRIMETHOBENZAMIDE HCL 200MG/2ML INJ IM ONE (17:31)
[2024-01-30 17:32] LABS: ACTIVATED PTT 44.1 SECONDS (25.2-36.5)
[2024-01-30] MEDS: ALBUTEROL SO4 2.5/IPRATROPIUM 0.5 INH SOL 3 ML VIAL.NEB. NEB SCH (17:32)
[2024-01-30 18:32] LABS: POTASSIUM 4.1 mmol/L (3.5-5.1)
[2024-01-30 18:34] LABS: CALCIUM 8.6 mg/dL (8.5-10.1)
[2024-01-30 18:35] LABS: BLOOD UREA NITROGEN 65.3 mg/dL (7-18)
[2024-01-30 18:36] LABS: BILIRUBIN,TOTAL 0.4 mg/dL (0.2-1); CREATININE 3.7 mg/dL (0.55-1.3); TOT PROT 7.6 g/dl (6.4-8.2)
[2024-01-30] MEDS ORDERED: diazePAM CARPU-JECT 10 MG/2 ML DISP.SYRIN ONE (19:05)
[2024-01-30] MEDS ORDERED: PANTOPRAZOLE SODIUM 40 MG VIAL ONE (19:06)
[2024-01-30] MEDS: diazePAM CARPU-JECT 10 MG/2 ML DISP.SYRIN IVPUSH ONE (19:12)
[2024-01-30] MEDS: PANTOPRAZOLE SODIUM 40 MG VIAL IVPUSH ONE (19:12)
[2024-01-30] MEDS: SODIUM CHLORIDE 0.9% 500 ML INFUS.BAG IV STA (22:07)
[2024-01-30] MEDS: SODIUM CHLORIDE 0.45% 1,000 ML IV SCH (23:56)
[2024-01-31 01:55] LABS: EPI CELLS 20 /uL (0-25.1); HYALINE CASTS 1 /uL (0-3.1); PH,URINE 5.5 (5.0-8.0); URINE APPEARANCE CLOUDY; URINE BACTERIA >9,000 /uL (0-1359); URINE BILIRUBIN NEGATIVE (NEGATIVE); URINE COLOR YELLOW; URINE GLUCOSE (UA) NEGATIVE (NEGATIVE); URINE KETONE NEGATIVE (NEGATIVE); URINE LEUK ESTERASE 2+ (NEGATIVE); URINE NITRITE NEGATIVE (NEGATIVE); URINE PROTEIN 2+ (NEGATIVE); URINE RBC 25 /uL (0-23.9); URINE UROBILINOGEN 0.2 mg/dL (0.2-1.0); URINE WBC 489 /uL (0-25.8)
[2024-01-31] MEDS ORDERED: TRIMETHOBENZAMIDE HCL 200MG/2ML INJ IM ONE (02:51)
[2024-01-31] MEDS: TRIMETHOBENZAMIDE HCL 200MG/2ML INJ IM PRN (02:59)
[2024-01-31] MEDS: INSULIN ASPART SLIDING SCALE (NOVOLOG) 1 VIAL SQ SCH (07:47)
[2024-01-31 08:19] LABS: INR 3.76 (0.83-1.09); PROTHROMBIN TIME (PATIENT) 43.1 SEC (9.7-13.0)
[2024-01-31 08:20] LABS: ACTIVATED PTT 43.3 SECONDS (25.2-36.5)
[2024-01-31 08:30] LABS: POTASSIUM 4.1 mmol/L (3.5-5.1)
[2024-01-31 08:31] LABS: BASO % 0.5 % (0-2.0); HEMATOCRIT 28.3 % (32.4-45.2); HEMOGLOBIN 9.2 GM/dL (10.7-15.3); LYMPH % 14.2 % (8-40); MCH 27.5 pg (25.7-33.7); MCHC 32.4 g/dl (32.0-36.0); MEAN CELL VOLUME 84.7 fl (80-96); MEAN PLT VOLUME 8.8 fl (7.5-11.1); MONO % 13.7 % (3.8-10.2); NEUT % 69.6 % (42.8-82.8); PLATELET COUNT 229 10^3/uL (134-434); RBC 3.34 M/mm3 (3.60-5.2); RDW 15.6 % (11.6-15.6); WHITE BLOOD COUNT 6.3 K/mm3 (4.0-10.0)
[2024-01-31 08:32] LABS: BLOOD UREA NITROGEN 67.7 mg/dL (7-18); MAGNESIUM 1.8 mg/dL (1.8-2.4)
[2024-01-31 08:36] LABS: CREATININE 3.5 mg/dL (0.55-1.3); PHOSPHOROUS 4.4 mg/dL (2.5-4.9)
[2024-01-31] MEDS ORDERED: NYSTATIN 100,000 UNIT/GM TOPICAL CREAM 15 GM TUBE TP PRN (08:58)
[2024-01-31] MEDS ORDERED: MINERAL OIL/PET HY-PHL TOPICAL OINTMENT 454 GM JAR TP PRN (09:32)
[2024-01-31] MEDS ORDERED: QUEtiapine FUMARATE 400 MG TABLET PO SCH (10:00)
[2024-01-31] MEDS ORDERED: metoPROLOL SUCCINATE 25 MG TAB.SR.24H (FP) PO ONE (10:01)
[2024-01-31] MEDS ORDERED: QUEtiapine FUMARATE 100 MG TABLET (FP) ONE (10:01)
[2024-01-31] MEDS ORDERED: PANTOPRAZOLE 40 MG TABLET PO ONE (10:01)
[2024-01-31] MEDS: PANTOPRAZOLE 40 MG TABLET PO SCH (10:10)
[2024-01-31] MEDS: QUEtiapine FUMARATE 200 MG TABLET PO SCH (10:10)
[2024-01-31] MEDS: metoPROLOL SUCCINATE 25 MG TAB.SR.24H (FP) PO SCH (10:11)
[2024-01-31] MEDS ORDERED: LEVOTHYROXINE NA 100 MCG TABLET (FP) ONE (12:23)
[2024-01-31] MEDS ORDERED: LEVOTHYROXINE NA 50 MCG TABLET (FP) ONE (12:23)
[2024-01-31] MEDS: LEVOTHYROXINE 200 MCG, LEVOTHYROXINE 50 MCG PO SCH (12:37)
[2024-01-31] MEDS: GABAPENTIN 100 MG CAPSULE PO SCH (15:11)
[2024-01-31] MEDS: busPIRone HCL 5 MG TABLET PO SCH (15:11)
[2024-01-31] MEDS: LEVOTHYROXINE NA 50 MCG TABLET (FP) PO ONE (20:36)
[2024-01-31] MEDS: LEVOTHYROXINE NA 200 MCG TABLET PO ONE (20:36)
[2024-02-01] MEDS ORDERED: LEVOTHYROXINE NA 200 MCG TABLET PO SCH (07:00)
[2024-02-01] MEDS ORDERED: LEVOTHYROXINE NA 50 MCG TABLET (FP) PO SCH (07:00)
[2024-02-01 07:14] LABS: BLOOD UREA NITROGEN 57.8 mg/dL (7-18)
[2024-02-01 07:17] LABS: CREATININE 3.4 mg/dL (0.55-1.3)
[2024-02-01 07:18] LABS: BASO % 0.9 % (0-2.0); BILIRUBIN,TOTAL 0.3 mg/dL (0.2-1); EOS % 4.1 % (0-4.5); HEMATOCRIT 27.2 % (32.4-45.2); HEMOGLOBIN 8.8 GM/dL (10.7-15.3); MCH 27.3 pg (25.7-33.7); MCHC 32.4 g/dl (32.0-36.0); MEAN CELL VOLUME 84.5 fl (80-96); MEAN PLT VOLUME 8.4 fl (7.5-11.1); MONO % 14.8 % (3.8-10.2); NEUT % 62.2 % (42.8-82.8); PLATELET COUNT 207 10^3/uL (134-434); RBC 3.22 M/mm3 (3.60-5.2); RDW 15.8 % (11.6-15.6); WHITE BLOOD COUNT 5.1 K/mm3 (4.0-10.0)
[2024-02-01 07:21] LABS: INR 3.71 (0.83-1.09); PROTHROMBIN TIME (PATIENT) 42.5 SEC (9.7-13.0)
[2024-02-01 07:32] LABS: ALBUMIN 2.4 g/dl (3.4-5.0)
[2024-02-01] MEDS ORDERED: busPIRone HCL 5 MG TABLET ONE (09:06)
[2024-02-01] MEDS ORDERED: GABAPENTIN 100 MG CAPSULE ONE (09:07)
[2024-02-01] MEDS ORDERED: METOPROLOL TARTRATE 25 MG TABLET (FP) ONE (10:59)
[2024-02-02] MEDS ORDERED: LEVOTHYROXINE NA 50 MCG TABLET (FP) ONE (06:07)
[2024-02-02] MEDS ORDERED: INSULIN ASPART SLIDING SCALE (NOVOLOG) 1 VIAL SQ ONE ×2 (11:54→17:08)
[2024-02-02] MEDS: ERTAPENEM SODIUM 0.5 GM in SODIUM CHLORIDE 50 ML IVPB SCH (13:42)
[2024-02-03 07:31] LABS: INR 2.5 (0.83-1.09); PROTHROMBIN TIME (PATIENT) 28.7 SEC (9.7-13.0)
[2024-02-03 07:33] LABS: BASO % 0.6 % (0-2.0); EOS % 4.8 % (0-4.5); HEMATOCRIT 28.6 % (32.4-45.2); LYMPH % 13.7 % (8-40); MCHC 31.4 g/dl (32.0-36.0); MEAN CELL VOLUME 86.1 fl (80-96); MEAN PLT VOLUME 8.1 fl (7.5-11.1); MONO % 12.4 % (3.8-10.2); NEUT % 68.5 % (42.8-82.8); PLATELET COUNT 234 10^3/uL (134-434); RBC 3.32 M/mm3 (3.60-5.2); RDW 15.6 % (11.6-15.6); WHITE BLOOD COUNT 6.7 K/mm3 (4.0-10.0)
[2024-02-03 07:50] LABS: CALCIUM 8.1 mg/dL (8.5-10.1)
[2024-02-03 07:51] LABS: ALBUMIN 2.4 g/dl (3.4-5.0); BLOOD UREA NITROGEN 45.2 mg/dL (7-18)
[2024-02-03 07:54] LABS: BILIRUBIN,TOTAL 0.3 mg/dL (0.2-1); CREATININE 2.9 mg/dL (0.55-1.3); TOT PROT 6.2 g/dl (6.4-8.2)
[2024-02-03] MEDS: ERTAPENEM SODIUM 0.5 GM in SODIUM CHLORIDE 50 ML IVPB SCH (09:45)
[2024-02-03] MEDS: QUEtiapine FUMARATE 100 MG TABLET (FP) PO SCH (10:16)
[2024-02-03] MEDS: WARFARIN NA 5 MG TABLET PO SCH (17:42)
[2024-02-03] MEDS: QUEtiapine FUMARATE 200 MG TABLET PO SCH (21:52)
[2024-02-04] MEDS ORDERED: LEVOTHYROXINE NA 50 MCG TABLET (FP) ONE (05:26)
[2024-02-04 07:40] LABS: BASO % 0.6 % (0-2.0); EOS % 5.9 % (0-4.5); HEMATOCRIT 26.5 % (32.4-45.2); HEMOGLOBIN 8.5 GM/dL (10.7-15.3); LYMPH % 16.3 % (8-40); MCH 27.7 pg (25.7-33.7); MCHC 32.3 g/dl (32.0-36.0); MEAN CELL VOLUME 85.8 fl (80-96); MONO % 11.2 % (3.8-10.2); PLATELET COUNT 233 10^3/uL (134-434); RBC 3.08 M/mm3 (3.60-5.2); RDW 15.6 % (11.6-15.6)
[2024-02-04 07:43] LABS: INR 2.07 (0.83-1.09); PROTHROMBIN TIME (PATIENT) 23.8 SEC (9.7-13.0)
[2024-02-04 08:01] LABS: POTASSIUM 4.4 mmol/L (3.5-5.1)
[2024-02-04 08:03] LABS: BLOOD UREA NITROGEN 38.1 mg/dL (7-18); CALCIUM 8.2 mg/dL (8.5-10.1)
[2024-02-04 08:04] LABS: ALBUMIN 2.2 g/dl (3.4-5.0)
[2024-02-04 08:07] LABS: CREATININE 2.8 mg/dL (0.55-1.3)
[2024-02-04 08:08] LABS: BILIRUBIN,TOTAL 0.3 mg/dL (0.2-1); TOT PROT 6.1 g/dl (6.4-8.2)
[2024-02-04] MEDS: SODIUM CHLORIDE 0.45% 1,000 ML IV SCH (15:39)
[2024-02-04] MEDS: WARFARIN NA 5 MG, WARFARIN NA 2 MG PO SCH (17:40)
[2024-02-04] MEDS ORDERED: WARFARIN NA 5 MG TABLET PO SCH (18:00)
[2024-02-04] MEDS: NYSTATIN POWDER 100,000 UNITS/GM - 15 GM TOPICAL POWDER TP SCH (21:57)
[2024-02-05 07:34] LABS: INR 1.66 (0.83-1.09); PROTHROMBIN TIME (PATIENT) 19.2 SEC (9.7-13.0)
[2024-02-06 06:57] VITALS: RESP 18
[2024-02-06 08:41] LABS: INR 1.77 (0.83-1.09); PROTHROMBIN TIME (PATIENT) 20.4 SEC (9.7-13.0)
[2024-02-06] MEDS: SIMETHICONE 80 MG TAB.CHEW (FP) PO PRN (13:00)
[2024-02-06] MEDS ORDERED: ALBUTEROL SO4 2.5/IPRATROPIUM 0.5 INH SOL 3 ML VIAL.NEB. NEB PRN (13:01)
[2024-02-06] MEDS: BUDESONIDE/FORMETEROL FUMARATE 160/4.5 mcg INHALER IH SCH (14:05)
[2024-02-07 09:59] LABS: INR 1.58 (0.83-1.09); PROTHROMBIN TIME (PATIENT) 18.2 SEC (9.7-13.0)
[2024-02-07] MEDS: LIDOCAINE 4% PATCH TP SCH (14:39)
[2024-02-07] MEDS: MINERAL OIL ENEMA 133 ML ENEMA RC ONE (15:18)
[2024-02-07] MEDS: LIDOCAINE PATCH REMOVAL MC SCH (22:07)
[2024-02-07] MEDS: SODIUM CHLORIDE 1,000 ML IV SCH (22:28)
[2024-02-08 07:32] LABS: BASO % 0.6 % (0-2.0); EOS % 3.6 % (0-4.5); HEMATOCRIT 26.3 % (32.4-45.2); HEMOGLOBIN 8.6 GM/dL (10.7-15.3); LYMPH % 19.4 % (8-40); MCH 27.7 pg (25.7-33.7); MCHC 32.8 g/dl (32.0-36.0); MEAN CELL VOLUME 84.5 fl (80-96); MEAN PLT VOLUME 7.3 fl (7.5-11.1); MONO % 8.2 % (3.8-10.2); NEUT % 68.2 % (42.8-82.8); PLATELET COUNT 274 10^3/uL (134-434); RBC 3.11 M/mm3 (3.60-5.2); RDW 15.5 % (11.6-15.6); WHITE BLOOD COUNT 8.1 K/mm3 (4.0-10.0)
[2024-02-08 07:37] LABS: POTASSIUM 4.3 mmol/L (3.5-5.1)
[2024-02-08 07:49] LABS: CALCIUM 8.4 mg/dL (8.5-10.1)
[2024-02-08 07:50] LABS: ALBUMIN 2.5 g/dl (3.4-5.0); BLOOD UREA NITROGEN 41.2 mg/dL (7-18)
[2024-02-08 07:53] LABS: BILIRUBIN,TOTAL 0.2 mg/dL (0.2-1); CREATININE 2.3 mg/dL (0.55-1.3); TOT PROT 6.2 g/dl (6.4-8.2)
[2024-02-08] MEDS: ACETAMINOPHEN 1000 MG/100 ML BAG IVPB ONE ×2 (08:27)
[2024-02-08 10:16] LABS: ANISOCYTOSIS 0; HELMET CELLS 0; HOWELL-JOLLY BODIES 0; MACROCYTOSIS 0; OVALOCYTE 0; ROULEAU 0; SICKELED CELLS 0; TARGET CELLS 0; TEAR DROP CELLS 0; TOXIC GRANULATION 0
[2024-02-08] MEDS: WARFARIN NA 2 MG TABLET PO ONE (17:57)
[2024-02-08] MEDS ORDERED: TRIMETHOBENZAMIDE HCL 200MG/2ML INJ IM PRN (18:08)
[2024-02-08] MEDS ORDERED: MINERAL OIL/PET HY-PHL TOPICAL OINTMENT 454 GM JAR TP PRN (18:08)
[2024-02-08] MEDS ORDERED: NYSTATIN 100,000 UNIT/GM TOPICAL CREAM 15 GM TUBE TP PRN (18:08)
[2024-02-08] MEDS: SODIUM CHLORIDE 0.45% 1,000 ML IV SCH (18:40)
[2024-02-08] MEDS: QUEtiapine FUMARATE 200 MG TABLET PO SCH (22:40)
[2024-02-08] MEDS: busPIRone HCL 5 MG TABLET PO SCH (22:40)
[2024-02-08] MEDS: GABAPENTIN 100 MG CAPSULE PO SCH (22:40)
[2024-02-08] MEDS: INSULIN ASPART SLIDING SCALE (NOVOLOG) 1 VIAL SQ SCH (22:41)
[2024-02-08] MEDS: NYSTATIN POWDER 100,000 UNITS/GM - 15 GM TOPICAL POWDER TP SCH (23:30)
[2024-02-09] MEDS: LEVOTHYROXINE 200 MCG, LEVOTHYROXINE 50 MCG PO SCH (06:50)
[2024-02-09 08:50] LABS: INR 1.72 (0.83-1.09); PROTHROMBIN TIME (PATIENT) 19.8 SEC (9.7-13.0)
[2024-02-09] MEDS: metoPROLOL SUCCINATE 25 MG TAB.SR.24H (FP) PO SCH (09:12)
[2024-02-09] MEDS: PANTOPRAZOLE 40 MG TABLET PO SCH (09:12)
[2024-02-09] MEDS: QUEtiapine FUMARATE 100 MG TABLET (FP) PO SCH (09:12)
[2024-02-09] MEDS: ERTAPENEM SODIUM 0.5 GM in SODIUM CHLORIDE 50 ML IVPB SCH (10:24)
[2024-02-09] MEDS: WARFARIN NA 2 MG TABLET PO ONE (17:12)
[2024-02-09] MEDS: WARFARIN NA 5 MG, WARFARIN NA 2 MG PO SCH (17:13)
[2024-02-10 07:54] LABS: INR 2.11 (0.83-1.09); PROTHROMBIN TIME (PATIENT) 24.3 SEC (9.7-13.0)
[2024-02-10 07:56] LABS: HEMATOCRIT 26.7 % (32.4-45.2); HEMOGLOBIN 8.4 GM/dL (10.7-15.3); MCH 26.8 pg (25.7-33.7); MCHC 31.3 g/dl (32.0-36.0); MEAN CELL VOLUME 85.6 fl (80-96); MEAN PLT VOLUME 7.6 fl (7.5-11.1); PLATELET COUNT 267 10^3/uL (134-434); RBC 3.12 M/mm3 (3.60-5.2); RDW 15.4 % (11.6-15.6); WHITE BLOOD COUNT 7.7 K/mm3 (4.0-10.0)
[2024-02-10 08:09] LABS: POTASSIUM 4.9 mmol/L (3.5-5.1)
[2024-02-10 08:13] LABS: CALCIUM 8.9 mg/dL (8.5-10.1)
[2024-02-10 08:14] LABS: ALBUMIN 2.4 g/dl (3.4-5.0); BLOOD UREA NITROGEN 45.9 mg/dL (7-18)
[2024-02-10 08:16] LABS: CREATININE 2.4 mg/dL (0.55-1.3)
[2024-02-10 08:18] LABS: TOT PROT 6.3 g/dl (6.4-8.2)
[2024-02-10 08:21] LABS: BILIRUBIN,TOTAL 0.3 mg/dL (0.2-1)
[2024-02-10 10:50] LABS: ANISOCYTOSIS 0; HELMET CELLS 0; HOWELL-JOLLY BODIES 0; MACROCYTOSIS 0; OVALOCYTE 0; ROULEAU 0; SICKELED CELLS 0; TARGET CELLS 0; TEAR DROP CELLS 0; TOXIC GRANULATION 0
[2024-02-10 15:36] VITALS: BMI 41.8
[2024-02-12 08:32] LABS: EOS % 3.1 % (0-4.5); HEMATOCRIT 27.7 % (32.4-45.2); HEMOGLOBIN 8.7 GM/dL (10.7-15.3); LYMPH % 25.4 % (8-40); MCH 27.1 pg (25.7-33.7); MCHC 31.5 g/dl (32.0-36.0); MEAN CELL VOLUME 85.8 fl (80-96); MEAN PLT VOLUME 7.9 fl (7.5-11.1); MONO % 8.1 % (3.8-10.2); NEUT % 62.4 % (42.8-82.8); PLATELET COUNT 262 10^3/uL (134-434); RBC 3.23 M/mm3 (3.60-5.2); RDW 15.3 % (11.6-15.6); WHITE BLOOD COUNT 6.7 K/mm3 (4.0-10.0)
[2024-02-12 08:39] LABS: INR 2.4 (0.83-1.09); PROTHROMBIN TIME (PATIENT) 27.6 SEC (9.7-13.0)
[2024-02-12 08:55] LABS: CALCIUM 8.5 mg/dL (8.5-10.1)
[2024-02-12 08:56] LABS: ALBUMIN 2.6 g/dl (3.4-5.0); BLOOD UREA NITROGEN 49.7 mg/dL (7-18)
[2024-02-12 08:59] LABS: CREATININE 2.4 mg/dL (0.55-1.3)
[2024-02-12 09:00] LABS: BILIRUBIN,TOTAL 0.3 mg/dL (0.2-1)
[2024-02-12 09:01] LABS: TOT PROT 6.3 g/dl (6.4-8.2)
[2024-02-12 09:12] VITALS: BP 123/53; PULSE 78; TEMP 97.6
== END 2024-02-12 14:48 | DRG 683 ==
LOC: JER 15:40 → JERBED 23:11 → J4S 02-01 11:30 → OBSVTOIN 02-02 13:03 → J6S 02-08 17:42
PROVIDERS: ADMIT Internal Medicine; ATTEND Internal Medicine
DX: N17.9 Acute kidney failure, unspecified (principal); I45.2 Bifascicular block; N39.0 Urinary tract infection, site not specified; Z68.41 Body mass index [BMI] 40.0-44.9, adult; J96.11 Chronic respiratory failure with hypoxia; Z16.12 Extended spectrum beta lactamase (ESBL) resistance; I12.9 Hypertensive chronic kidney disease with stage 1 through stage 4 chronic kidney disease, or unspecified chronic kidney disease; E78.5 Hyperlipidemia, unspecified; J44.9 Chronic obstructive pulmonary disease, unspecified; E11.9 Type 2 diabetes mellitus without complications; R11.2 Nausea with vomiting, unspecified; N18.9 Chronic kidney disease, unspecified; R79.1 Abnormal coagulation profile; F20.9 Schizophrenia, unspecified; I48.91 Unspecified atrial fibrillation; E03.9 Hypothyroidism, unspecified; E66.01 Morbid (severe) obesity due to excess calories; K21.9 Gastro-esophageal reflux disease without esophagitis
CPT/HCPCS: 0241U-QW; 36415; 71045-TC-FY; 73502-TC-RT-FY; 74018-TC-FY; 74176-TC; 76775-TC; 80048; 80053; 81003; 82962; 83690; 83735; 84100; 84439; 84443; 84484; 85025; 85610; 85730; 86850; 86900; 86901; 87040; 87045; 87046; 87086; 87186; 87205; 87635; 93005; 93010; 94660; 97116-GP; 99285-25; G0378; J0131

== ENCOUNTER 2024-07-22 18:34 | Inpatient (IN) | payer OTHER ==
[2024-07-22 18:45] VITALS: BMI 43.0
[2024-07-22] MEDS ORDERED: ACETAMINOPHEN INJECTION 100 ML ONE (21:23)
[2024-07-22] MEDS: ACETAMINOPHEN 1000 MG/100 ML BAG IVPB ONE (21:33)
[2024-07-22 21:43] LABS: BASO % 1.2 % (0-2.0); HEMOGLOBIN 10.2 GM/dL (10.7-15.3); LYMPH % 18.5 % (8-40); MCH 27.8 pg (25.7-33.7); MCHC 32.8 g/dl (32.0-36.0); MEAN CELL VOLUME 84.7 fl (80-96); MEAN PLT VOLUME 7.7 fl (7.5-11.1); MONO % 8.3 % (3.8-10.2); PLATELET COUNT 318 10^3/uL (134-434); RBC 3.66 M/mm3 (3.60-5.2); RDW 16.4 % (11.6-15.6); WHITE BLOOD COUNT 10.1 K/mm3 (4.0-10.0)
[2024-07-22 21:52] LABS: INR 1.05 (0.83-1.09); PROTHROMBIN TIME (PATIENT) 12.1 SEC (9.7-13.0)
[2024-07-22 21:54] LABS: ACTIVATED PTT 33.9 SECONDS (25.2-36.5)
[2024-07-22 22:00] LABS: POTASSIUM 5.1 mmol/L (3.5-5.1)
[2024-07-22 22:02] LABS: ALBUMIN 3.6 g/dl (3.4-5.0); BLOOD UREA NITROGEN 67.5 mg/dL (7-18); CALCIUM 9.1 mg/dL (8.5-10.1); MAGNESIUM 2.2 mg/dL (1.8-2.4)
[2024-07-22 22:05] LABS: CREATININE 3.2 mg/dL (0.55-1.3)
[2024-07-22 22:07] LABS: BILIRUBIN,TOTAL 0.3 mg/dL (0.2-1); TOT PROT 7.8 g/dl (6.4-8.2)
[2024-07-22 22:25] LABS: ERYTHROCYTE SEDIMENTATION RATE 94 mm/hr (0-30)
[2024-07-22] MEDS ORDERED: CEFEPIME 1 GM/100 ML BAG IVPB ONE (23:09)
[2024-07-22] MEDS: CEFEPIME HCL 2 GM VIAL (RESTRICTED TO ID) IVPB ONE (23:17)
[2024-07-23] MEDS ORDERED: morphine SULFATE 4 MG/ML VIAL ONE (00:59)
[2024-07-23 01:08] LABS: URINE APPEARANCE CLOUDY; URINE COLOR YELLOW; URINE GLUCOSE (UA) NEGATIVE (NEGATIVE)
[2024-07-23] MEDS: morphine CARPU-JECT 4 MG/1 ML DISP.SYRIN IVPUSH ONE (01:08)
[2024-07-23] MEDS ORDERED: VANCOMYCIN 1 GRAM (PRE-DOCKED) 1,000 MG/250 ML BAG IVPB ONE (01:08)
[2024-07-23 01:09] LABS: PH,URINE 5.5 (5.0-8.0); URINE BILIRUBIN NEGATIVE (NEGATIVE); URINE KETONE NEGATIVE (NEGATIVE); URINE LEUK ESTERASE 4+ (NEGATIVE); URINE NITRITE NEGATIVE (NEGATIVE); URINE PROTEIN 30 (NEGATIVE); URINE UROBILINOGEN 0.2 mg/dL (0.2-1.0)
[2024-07-23] MEDS: VANCOMYCIN 1,000 MG in DEXTROSE 5%-WATER - 250 ML IVPB ONE (01:14)
[2024-07-23] MEDS ORDERED: ALBUTEROL SO4 0.083% IH SOL 2.5 MG/3 ML VIAL.NEB. NEB PRN (02:18)
[2024-07-23] MEDS: GABAPENTIN 100 MG CAPSULE PO SCH (06:18)
[2024-07-23] MEDS: SODIUM CHLORIDE 0.45% 1,000 ML IV SCH (06:19)
[2024-07-23] MEDS: LEVOTHYROXINE NA 200 MCG TABLET PO SCH (06:19)
[2024-07-23 08:30] LABS: EOS % 8.5 % (0-4.5); HEMATOCRIT 29.8 % (32.4-45.2); HEMOGLOBIN 9.7 GM/dL (10.7-15.3); LYMPH % 23.9 % (8-40); MCH 27.9 pg (25.7-33.7); MCHC 32.4 g/dl (32.0-36.0); MEAN PLT VOLUME 7.4 fl (7.5-11.1); MONO % 9.9 % (3.8-10.2); NEUT % 56.7 % (42.8-82.8); PLATELET COUNT 268 10^3/uL (134-434); RBC 3.47 M/mm3 (3.60-5.2); RDW 15.9 % (11.6-15.6); WHITE BLOOD COUNT 6.4 K/mm3 (4.0-10.0)
[2024-07-23 08:54] LABS: POTASSIUM 4.7 mmol/L (3.5-5.1)
[2024-07-23 08:55] LABS: CALCIUM 9.2 mg/dL (8.5-10.1)
[2024-07-23 08:56] LABS: BLOOD UREA NITROGEN 67.3 mg/dL (7-18)
[2024-07-23 08:59] LABS: CREATININE 3.1 mg/dL (0.55-1.3)
[2024-07-23] MEDS: metoPROLOL SUCCINATE 25 MG TAB.SR.24H (FP) PO SCH (10:07)
[2024-07-23] MEDS: TIOTROPIUM BROMIDE 2.5 MCG (SPIRIVA) RESPIMAT INHALER IH SCH (11:13)
[2024-07-23] MEDS: CLOTRIMAZOLE 1% CREAM TP SCH (11:13)
[2024-07-23] MEDS ORDERED: ERTAPENEM SODIUM 0.5 GM in SODIUM CHLORIDE 50 ML IVPB SCH (14:25)
[2024-07-23] MEDS: ERTAPENEM SODIUM 0.5 GM in SODIUM CHLORIDE 50 ML IVPB SCH ×2 (15:24→17:41)
[2024-07-23] MEDS: INSULIN ASPART SLIDING SCALE (NOVOLOG) 1 VIAL SQ SCH (17:08)
[2024-07-23] MEDS: RIVAROXABAN 10 MG TABLET PO SCH (17:41)
[2024-07-23] MEDS: VANCOMYCIN/WATER FOR INJ (PEG) 1,000 MG/200 ML BAG IVPB ONE (18:57)
[2024-07-23] MEDS: MELATONIN 5 MG TABLETS PO SCH (22:30)
[2024-07-23] MEDS: amLODIPine BESYLATE 10 MG TABLET (FP) PO SCH (22:31)
[2024-07-23] MEDS: INSULIN (LEVEMIR) 100 UNITS/ML UNITS SQ SCH (22:31)
[2024-07-23] MEDS: OLANZapine 10 MG TABLET PO SCH (22:31)
[2024-07-23] MEDS ORDERED: QUEtiapine FUMARATE 300 MG TABLET PO SCH (22:40)
[2024-07-23] MEDS: QUEtiapine FUMARATE 100 MG TABLET (FP) PO SCH (22:52)
[2024-07-23] MEDS: QUEtiapine FUMARATE 300 MG TABLET PO SCH (23:31)
[2024-07-24] MEDS ORDERED: VANCOMYCIN PREMIX 1.5 GM 1,500 MG/300 ML BAG IVPB SCH (01:00)
[2024-07-24] MEDS ORDERED: VANCOMYCIN HCL 1,500 MG in DEXTROSE 5%-WATER - 500 ML IVPB SCH (01:00)
[2024-07-24 08:31] LABS: BASO % 0.8 % (0-2.0); EOS % 8.9 % (0-4.5); HEMATOCRIT 31.1 % (32.4-45.2); HEMOGLOBIN 10.2 GM/dL (10.7-15.3); LYMPH % 18.4 % (8-40); MCHC 32.9 g/dl (32.0-36.0); MEAN CELL VOLUME 84.9 fl (80-96); MEAN PLT VOLUME 7.7 fl (7.5-11.1); MONO % 9.1 % (3.8-10.2); NEUT % 62.8 % (42.8-82.8); PLATELET COUNT 257 10^3/uL (134-434); RBC 3.66 M/mm3 (3.60-5.2); RDW 16.2 % (11.6-15.6); WHITE BLOOD COUNT 5.6 K/mm3 (4.0-10.0)
[2024-07-24 08:55] LABS: POTASSIUM 4.9 mmol/L (3.5-5.1)
[2024-07-24 09:05] LABS: ALBUMIN 3.1 g/dl (3.4-5.0)
[2024-07-24 09:06] LABS: BLOOD UREA NITROGEN 57.8 mg/dL (7-18)
[2024-07-24 09:09] LABS: CREATININE 2.8 mg/dL (0.55-1.3)
[2024-07-24 09:10] LABS: BILIRUBIN,TOTAL 0.4 mg/dL (0.2-1); TOT PROT 6.9 g/dl (6.4-8.2)
[2024-07-24] MEDS: ERTAPENEM SODIUM 0.5 GM in SODIUM CHLORIDE 50 ML IVPB SCH (10:58)
[2024-07-25] MEDS ORDERED: guaiFENesin/D-METHORPHAN HB 10 ML UNIT-DOSE CUPS PO PRN (14:45)
[2024-07-25] MEDS: MINERAL OIL/PET HY-PHL TOPICAL OINTMENT 454 GM JAR TP SCH (18:51)
[2024-07-25] MEDS: VANCOMYCIN/WATER FOR INJ (PEG) 1,000 MG/200 ML BAG IVPB ONE (19:28)
[2024-07-25] MEDS: CEFTRIAXONE 2 GM in DEXTROSE 5%-WATER 100 ML IVPB SCH (19:30)
[2024-07-25] MEDS: oxyCODONE HCL 5 MG TABLET PO PRN (23:01)
[2024-07-26] MEDS: ONDANSETRON 4 MG/2 ML VIAL IVPUSH ONE (04:59)
[2024-07-26 08:12] LABS: BASO % 0.5 % (0-2.0); EOS % 4.6 % (0-4.5); HEMATOCRIT 32.4 % (32.4-45.2); HEMOGLOBIN 10.5 GM/dL (10.7-15.3); MCH 27.7 pg (25.7-33.7); MCHC 32.4 g/dl (32.0-36.0); MEAN CELL VOLUME 85.7 fl (80-96); MEAN PLT VOLUME 7.5 fl (7.5-11.1); MONO % 7.1 % (3.8-10.2); NEUT % 73.8 % (42.8-82.8); PLATELET COUNT 249 10^3/uL (134-434); RBC 3.79 M/mm3 (3.60-5.2); RDW 15.9 % (11.6-15.6); WHITE BLOOD COUNT 7.4 K/mm3 (4.0-10.0)
[2024-07-26 08:32] LABS: POTASSIUM 4.6 mmol/L (3.5-5.1)
[2024-07-26 08:34] LABS: CALCIUM 8.8 mg/dL (8.5-10.1)
[2024-07-26 08:35] LABS: ALBUMIN 3.1 g/dl (3.4-5.0); BLOOD UREA NITROGEN 51.1 mg/dL (7-18)
[2024-07-26 08:38] LABS: CREATININE 2.4 mg/dL (0.55-1.3)
[2024-07-26 08:40] LABS: BILIRUBIN,TOTAL 0.2 mg/dL (0.2-1); TOT PROT 6.8 g/dl (6.4-8.2)
[2024-07-27 07:00] VITALS: RESP 18
[2024-07-27] MEDS: VANCOMYCIN/WATER FOR INJ (PEG) 1,000 MG/200 ML BAG IVPB SCH (11:38)
[2024-07-27] MEDS: CLOTRIMAZOLE/BETAMET DIPROP TOPICAL CREAM 45 GM TUBE TP SCH (15:17)
[2024-07-27] MEDS: HYDROCORTISONE 0.5% TOPICAL CREAM 30 GM TUBE TP SCH (15:17)
[2024-07-27] MEDS: NYSTATIN POWDER 100,000 UNITS/GM - 15 GM TOPICAL POWDER TP SCH (15:18)
[2024-07-28] MEDS ORDERED: DOCUSATE SODIUM 100 MG CAPSULE (FP) PO PRN (11:20)
[2024-07-28] MEDS: POLYETHYLENE GLYCOL (HEALTHYLAX) 3350 17 GM PACKET PO SCH (11:46)
[2024-07-28] MEDS: oxyCODONE HCL 5 MG TABLET PO PRN (21:18)
[2024-07-29 10:40] LABS: BASO % 0.6 % (0-2.0); EOS % 6.1 % (0-4.5); HEMATOCRIT 32.9 % (32.4-45.2); HEMOGLOBIN 10.6 GM/dL (10.7-15.3); LYMPH % 17.2 % (8-40); MCH 27.7 pg (25.7-33.7); MCHC 32.1 g/dl (32.0-36.0); MEAN CELL VOLUME 86.3 fl (80-96); MEAN PLT VOLUME 7.7 fl (7.5-11.1); MONO % 8.4 % (3.8-10.2); NEUT % 67.7 % (42.8-82.8); PLATELET COUNT 259 10^3/uL (134-434); RBC 3.81 M/mm3 (3.60-5.2); RDW 16.1 % (11.6-15.6); WHITE BLOOD COUNT 8.3 K/mm3 (4.0-10.0)
[2024-07-29 11:12] LABS: POTASSIUM 4.6 mmol/L (3.5-5.1)
[2024-07-29 11:16] LABS: ALBUMIN 3.3 g/dl (3.4-5.0); BLOOD UREA NITROGEN 54.2 mg/dL (7-18); CALCIUM 9.3 mg/dL (8.5-10.1)
[2024-07-29 11:20] LABS: CREATININE 2.5 mg/dL (0.55-1.3)
[2024-07-29 11:21] LABS: BILIRUBIN,TOTAL 0.3 mg/dL (0.2-1); TOT PROT 7.1 g/dl (6.4-8.2)
[2024-07-29 16:56] VITALS: BP 130/78; PULSE 83; TEMP 98.4
== END 2024-07-29 18:00 | disposition home or self-care (01) | DRG 603 ==
LOC: JER 18:34 → JERBED 07-23 00:36 → J7W 07-23 02:59 → OBSVTOIN 07-27 11:15
PROVIDERS: ADMIT Internal Medicine; ATTEND Internal Medicine
DX: L03.115 Cellulitis of right lower limb (principal); N39.0 Urinary tract infection, site not specified; N17.9 Acute kidney failure, unspecified; F31.89 Other bipolar disorder; Z68.41 Body mass index [BMI] 40.0-44.9, adult; K56.0 Paralytic ileus; I12.9 Hypertensive chronic kidney disease with stage 1 through stage 4 chronic kidney disease, or unspecified chronic kidney disease; E11.22 Type 2 diabetes mellitus with diabetic chronic kidney disease; N18.9 Chronic kidney disease, unspecified; R21 Rash and other nonspecific skin eruption; E66.01 Morbid (severe) obesity due to excess calories; J44.9 Chronic obstructive pulmonary disease, unspecified; G40.909 Epilepsy, unspecified, not intractable, without status epilepticus; E03.9 Hypothyroidism, unspecified; I25.10 Atherosclerotic heart disease of native coronary artery without angina pectoris; K21.9 Gastro-esophageal reflux disease without esophagitis; F25.8 Other schizoaffective disorders; I48.91 Unspecified atrial fibrillation; G47.33 Obstructive sleep apnea (adult) (pediatric); Z85.3 Personal history of malignant neoplasm of breast; Z96.642 Presence of left artificial hip joint
CPT/HCPCS: 36415; 73630-TC-LT; 73630-TC-RT-FY; 76775-TC; 80048; 80053; 80061; 81003; 82962; 83036; 83735; 84443; 85025; 85610; 85651; 85730; 86140; 86850; 86900; 86901; 87040; 87086; 87186; 93005; 93010; 93970-TC; 94010; 97116-GP; 97161-GP; 99285-25; G0378; G0480; J0131

== ENCOUNTER → 2024-09-28 | Day surgery (SDC) | payer OTHER | END | disposition home or self-care (01) | LOC: JRADUS-SUR 11:53 | PROVIDERS: ATTEND Internal Medicine Hematology & Oncology | PROC: 0H9U3ZX Drainage of Left Breast, Percutaneous Approach, Diagnostic (ICD-10-PCS; principal; 2024-09-28) | DX: N63.20 Unspecified lump in the left breast, unspecified quadrant (principal) | CPT/HCPCS: 19083; 76942-TC; 77065-TC; 87899; 88305-TC; 88342-TC; A4648 ==

== ENCOUNTER 2025-03-23 15:21 | Emergency (ER) | payer OTHER ==
[2025-03-23 15:49] VITALS: BP 126/57; PULSE 82; RESP 20; TEMP 98.5; BMI 45.4
[2025-03-23] MEDS ORDERED: LIDOCAINE 4% PATCH TP ONE (17:31)
[2025-03-23] MEDS ORDERED: morphine SULFATE 4 MG/ML VIAL ONE (17:31)
[2025-03-23] MEDS: morphine CARPU-JECT 4 MG/1 ML DISP.SYRIN IVPUSH ONE (17:36)
[2025-03-23] MEDS: LIDOCAINE 5% TOPICAL PATCH TP ONE (17:37)
[2025-03-23 17:39] LABS: HEMATOCRIT 32.5 % (34.1-44.9); HEMOGLOBIN 9.9 g/dL (11.2-15.7); MCHC 30.5 g/dl (32.2-35.5); MEAN CELL VOLUME 93.1 fl (79.4-94.8); MEAN PLT VOLUME 10.7 fl (9.4-12.3); PLATELET COUNT 199 x10^3/uL (182-369); RDW 14.7 % (12.4-16.4)
[2025-03-23 18:02] LABS: POTASSIUM 4.4 mmol/L (3.5-5.1)
[2025-03-23 18:04] LABS: ALBUMIN 3.7 g/dl (3.4-5.0); CALCIUM 9.6 mg/dL (8.5-10.1)
[2025-03-23 18:08] LABS: CREATININE 2.9 mg/dL (0.55-1.3)
[2025-03-23 18:10] LABS: BILIRUBIN,TOTAL 0.3 mg/dL (0.2-1); TOT PROT 7.6 g/dl (6.4-8.2)
[2025-03-23] MEDS ORDERED: LIDOCAINE PATCH REMOVAL MC SCH (22:00)
== END 2025-03-23 19:48 | disposition home or self-care (01) ==
LOC: JER 15:21
PROC: 3E033NZ Introduction of Analgesics, Hypnotics, Sedatives into Peripheral Vein, Percutaneous Approach (ICD-10-PCS; principal; 2025-03-23)
DX: M25.511 Pain in right shoulder (principal); W17.89XA Other fall from one level to another, initial encounter
CPT/HCPCS: 36415; 70450-TC; 71045-TC-FY; 72125-TC; 72170-TC-FY; 73030-TC-RT-FY; 73060-TC-RT-FY; 80053; 84484; 85027; 93005; 93010; 99285-25